=== PATIENT | female | born 1945 | race Caucasian/White ===

== ENCOUNTER 2017-10-27 08:17 | Inpatient (IN) | payer MEDICARE, MEDICAID ==
[~2017-10-27] VITALS: Ht 160 cm; Wt 69.0 kg
[2017-10-27] VITALS (11 sets, daily range): BP systolic 116–148; BP diastolic 45–86
[~2017-10-27 08:17] MED LIST: ARIP20TA4 PO; BISA-155 PO; CALC-1197 PO; CLON-527 PO; DIVA500T2 PO; DOCU-148 PO; DULR RC; FLUV50TA3 PO; LEVO50TA8 PO; LORA-269 PO; LORA2VIA27 IM; METO-384 PO; OLAN5TAB3 PO; OMEP-50 PO; QUET-1 PO
[2017-10-27] MEDS ORDERED: acetaminophen 325mg tablet PO STA (08:30)
[2017-10-27] MEDS ORDERED: normal saline 1000ML IV soln IV ONE (08:30)
[2017-10-27] MEDS ORDERED: levoFLOXACIN-Levaquin 750MG/D5 150 ML IV ONE (08:30)
[2017-10-27 09:40] LABS: BASOPHILS % (AUTO) 0.1 % (0-1); EOSINOPHILS # (AUTO) 0.1 X10'3 (0-0.9); EOSINOPHILS % (AUTO) 1.3 % (0-6); HEMOGLOBIN 7.2 g/dl (12.0-16.0); LYMPHOCYTES # (AUTO) 0.6 X10'3 (1.1-4.8); LYMPHOCYTES % (AUTO) 9.3 % (21-51); MEAN CORPUSCULAR HEMOGLOBIN 30.5 PG (27.0-31.0); MEAN CORPUSCULAR HGB CONC 33.8 % (33.0-36.5); MEAN CORPUSCULAR VOLUME 90.4 FL (78-98); MEAN PLATELET VOLUME 8.9 FL (7.4-10.4); MONOCYTES # (AUTO) 0.6 X10'3 (0-0.9); MONOCYTES % (AUTO) 8.4 % (2-12); NEUTROPHILS # (AUTO) 5.5 X10'3 (1.8-7.7); NEUTROPHILS % (AUTO) 80.9 % (42-75); PLATELET COUNT 171 X10'3 (140-440); RED BLOOD COUNT 2.37 X10'6 (4.20-5.60); RED CELL DISTRIBUTION WIDTH 14.4 % (11.5-14.5); WHITE BLOOD COUNT 6.8 X10'3 (4.5-11.0)
[2017-10-27 09:43] LABS: HEMATOCRIT 21.4 % (35.0-45.0)
[2017-10-27] MEDS ORDERED: PRAZ1CAP5 PO (09:46)
[2017-10-27] MEDS ORDERED: MULT1TAB74 PO (09:46)
[2017-10-27] MEDS ORDERED: PYRI50TA10 PO (09:46)
[2017-10-27 09:51] LABS: PARTIAL THROMBOPLASTIN TIME 24 SECONDS (22-32); PROTHROMBIN TIME 10.6 SECONDS (9.0-12.0)
[2017-10-27 09:56] LABS: ALANINE AMINOTRANSFERASE 12 U/L (12-78); ALBUMIN 2.6 G/DL (3.4-5.0); ALBUMIN/GLOBULIN RATIO 0.7 (1.1-1.5); ALKALINE PHOSPHATASE 60 IU/L (46-116); ANION GAP 5 (8-16); ASPARTATE AMINO TRANSFERASE 13 U/L (10-37); BILIRUBIN,TOTAL 0.1 MG/DL (0.1-1.0); BLOOD UREA NITROGEN 11 MG/DL (7-18); CALCIUM 8.5 MG/DL (8.5-10.1); CHLORIDE 100 MMOL/L (99-107); CREATININE 0.44 MG/DL (0.40-0.90); GLUCOSE 110 MG/DL (70-104); MAGNESIUM 1.4 MG/DL (1.5-2.4); POTASSIUM 4.2 MMOL/L (3.5-5.1); SODIUM 139 MMOL/L (135-145); TOTAL CARBON DIOXIDE 33.7 MMOL/L (24-32); TOTAL PROTEIN 6.4 G/DL (6.4-8.2); eGFR > 90 ML/MIN
[2017-10-27] MEDS ORDERED: acetaminophen 325mg tablet PO PRN (11:25)
[2017-10-27] MEDS ORDERED: morphine 2 MG/ML inj. syringe IV PRN ×2 (11:25)
[2017-10-27] MEDS ORDERED: ondansetron/PF 4mg/2ml inj IV PRN (11:25)
[2017-10-27] MEDS ORDERED: methylPREDNISolone sod succ 125mg/2ml vial IV ONE (11:25)
[2017-10-27] MEDS ORDERED: magnesium hydroxide 30ml (MOM) UD suspension PO PRN (11:25)
[2017-10-27] MEDS ORDERED: mag hydrox/Alum hydrox/simeth 30ml oral suspension PO PRN (11:25)
[2017-10-27] MEDS: ipratropium 0.5 MG/2.5ML nebule IH SCH ×2 (12:26→20:06)
[2017-10-27] MEDS ORDERED: ipratropium 0.5 MG/2.5ML nebule ONE (12:26)
[2017-10-27] MEDS: LORazepam 2 mg/ml vial IM SCH ×3 (15:27→22:15)
[2017-10-27] MEDS ORDERED: FLUVOXAMINE MALEATE 50 MG PO SCH (20:00)
[2017-10-27] MEDS ORDERED: non-formulary drug (Olanzapine (Zyprexa) 1 TAB) PO SCH (21:00)
[2017-10-27] MEDS: clonazePAM 1mg tablet PO SCH (21:40)
[2017-10-27] MEDS: quetiapine 100mg tablet PO SCH (21:40)
[2017-10-27] MEDS: OLANZapine 5mg rapidly disint. tablet PO SCH (21:41)
[2017-10-27] MEDS: fluvoxamine 25 MG tablet PO SCH (21:42)
[2017-10-27] MEDS: divalproex sodium 500mg tablet.DR PO SCH (21:42)
[2017-10-27] MEDS: prazosin 1mg capsule PO SCH (21:42)
[2017-10-27] MEDS: pantoprazole 40 MG vial IV SCH (21:43)
[2017-10-28] VITALS (7 sets, daily range): BP systolic 117–155; BP diastolic 56–72
[2017-10-28] MEDS: methylPREDNISolone sod succ/PF 40mg inj. IV SCH ×4 (01:48→21:05)
[2017-10-28] MEDS: LORazepam 2 mg/ml vial IM SCH (02:00)
[2017-10-28] MEDS: ipratropium 0.5 MG/2.5ML nebule IH SCH ×4 (03:37→20:35)
[2017-10-28 05:08] LABS: BASOPHILS % (AUTO) 0 % (0-1); EOSINOPHILS # (AUTO) 0.1 X10'3 (0-0.9); HEMATOCRIT 31.5 % (35.0-45.0); HEMOGLOBIN 10.6 g/dl (12.0-16.0); LYMPHOCYTES # (AUTO) 0.5 X10'3 (1.1-4.8); MEAN CORPUSCULAR HEMOGLOBIN 30.4 PG (27.0-31.0); MEAN CORPUSCULAR HGB CONC 33.5 % (33.0-36.5); MEAN CORPUSCULAR VOLUME 90.7 FL (78-98); MEAN PLATELET VOLUME 8.8 FL (7.4-10.4); MONOCYTES # (AUTO) 0.1 X10'3 (0-0.9); MONOCYTES % (AUTO) 1.8 % (2-12); NEUTROPHILS # (AUTO) 5.5 X10'3 (1.8-7.7); NEUTROPHILS % (AUTO) 89.2 % (42-75); PLATELET COUNT 166 X10'3 (140-440); RED BLOOD COUNT 3.48 X10'6 (4.20-5.60); RED CELL DISTRIBUTION WIDTH 14.5 % (11.5-14.5); WHITE BLOOD COUNT 6.2 X10'3 (4.5-11.0)
[2017-10-28 05:17] LABS: PROTHROMBIN TIME 10.5 SECONDS (9.0-12.0)
[2017-10-28 05:26] LABS: ALBUMIN 2.5 G/DL (3.4-5.0); ANION GAP 7 (8-16); BLOOD UREA NITROGEN 11 MG/DL (7-18); BUN/CREATININE RATIO 21.6 (6.6-38.0); CALCIUM 7.9 MG/DL (8.5-10.1); CHLORIDE 100 MMOL/L (99-107); CREATININE 0.51 MG/DL (0.40-0.90); GLUCOSE 150 MG/DL (70-104); POTASSIUM 4.1 MMOL/L (3.5-5.1); SODIUM 137 MMOL/L (135-145); TOTAL CARBON DIOXIDE 29.9 MMOL/L (24-32); eGFR > 90 ML/MIN
[2017-10-28] MEDS: pantoprazole 40 MG vial IV SCH (07:47)
[2017-10-28] MEDS: LORazepam 2 mg/ml vial IV SCH ×3 (07:48→21:07)
[2017-10-28] MEDS: pyridoxine 50mg tablet PO SCH (07:48)
[2017-10-28] MEDS: aripiprazole 5mg tablet PO SCH (07:49)
[2017-10-28] MEDS: levoFLOXACIN-Levaquin 750MG/D5 150 ML IV SCH (07:49)
[2017-10-28] MEDS: metoprolol succinate 25mg (24-HOUR) SR. Tablet PO SCH (07:50)
[2017-10-28] MEDS: levoTHYROXINE 25mcg tablet PO SCH (07:50)
[2017-10-28] MEDS: fluvoxamine 25 MG tablet PO SCH ×2 (07:50→21:04)
[2017-10-28] MEDS: multivitamins, therapeutics tablet PO SCH (07:50)
[2017-10-28] MEDS: quetiapine 100mg tablet PO SCH ×2 (07:50→21:05)
[2017-10-28] MEDS: divalproex sodium 500mg tablet.DR PO SCH ×2 (07:50→21:05)
[2017-10-28] MEDS ORDERED: non-formulary drug (Metoprolol Succinate 1 TAB) PO SCH (08:00)
[2017-10-28] MEDS ORDERED: non-formulary drug (Aripiprazole (Abilify) 1 TAB) PO SCH (08:00)
[2017-10-28] MEDS ORDERED: non-formulary drug (Levothyroxine Sodium 1 TAB) PO SCH (08:00)
[2017-10-28] MEDS ORDERED: non-formulary drug (Multivitamins 1 TAB) PO SCH (08:00)
[2017-10-28] MEDS: clonazePAM 1mg tablet PO SCH ×2 (08:57→21:05)
[2017-10-28] MEDS: prazosin 1mg capsule PO SCH (21:04)
[2017-10-28] MEDS: OLANZapine 5mg rapidly disint. tablet PO SCH (21:05)
[2017-10-28] MEDS: pantoprazole 40mg Tablet.DR PO SCH (21:05)
[2017-10-29] MEDS: LORazepam 2 mg/ml vial IV SCH ×4 (02:00→20:21)
[2017-10-29] MEDS: ipratropium 0.5 MG/2.5ML nebule IH SCH ×4 (02:45→20:28)
[2017-10-29 03:00] VITALS: BP 157/69
[2017-10-29] MEDS: methylPREDNISolone sod succ/PF 40mg inj. IV SCH ×4 (03:17→20:22)
[2017-10-29 05:22] LABS: BASOPHILS % (AUTO) 0.1 % (0-1); EOSINOPHILS % (AUTO) 0 % (0-6); HEMATOCRIT 30.6 % (35.0-45.0); HEMOGLOBIN 10.4 g/dl (12.0-16.0); LYMPHOCYTES # (AUTO) 0.7 X10'3 (1.1-4.8); LYMPHOCYTES % (AUTO) 12.7 % (21-51); MEAN CORPUSCULAR HEMOGLOBIN 30.6 PG (27.0-31.0); MEAN CORPUSCULAR HGB CONC 33.9 % (33.0-36.5); MEAN CORPUSCULAR VOLUME 90.2 FL (78-98); MEAN PLATELET VOLUME 9.1 FL (7.4-10.4); MONOCYTES # (AUTO) 0.4 X10'3 (0-0.9); MONOCYTES % (AUTO) 6.7 % (2-12); NEUTROPHILS # (AUTO) 4.4 X10'3 (1.8-7.7); NEUTROPHILS % (AUTO) 80.5 % (42-75); PLATELET COUNT 145 X10'3 (140-440); RED CELL DISTRIBUTION WIDTH 15.2 % (11.5-14.5); WHITE BLOOD COUNT 5.5 X10'3 (4.5-11.0)
[2017-10-29 05:34] LABS: ALBUMIN 2.5 G/DL (3.4-5.0); ANION GAP 3 (8-16); BLOOD UREA NITROGEN 12 MG/DL (7-18); BUN/CREATININE RATIO 21.1 (6.6-38.0); CALCIUM 8.6 MG/DL (8.5-10.1); CHLORIDE 104 MMOL/L (99-107); CREATININE 0.57 MG/DL (0.40-0.90); GLUCOSE 143 MG/DL (70-104); POTASSIUM 4.4 MMOL/L (3.5-5.1); SODIUM 143 MMOL/L (135-145); TOTAL CARBON DIOXIDE 36.3 MMOL/L (24-32); eGFR > 90 ML/MIN
[2017-10-29 06:00] VITALS: BP 154/75
[2017-10-29] MEDS: levoFLOXACIN-Levaquin 750MG/D5 150 ML IV SCH (08:00)
[2017-10-29] MEDS ORDERED: iohexol 350MG/ML 100ml bottle IV ONE ×2 (09:23→09:52)
[2017-10-29] MEDS: fluvoxamine 25 MG tablet PO SCH ×2 (10:38→20:20)
[2017-10-29] MEDS: levoTHYROXINE 25mcg tablet PO SCH (10:38)
[2017-10-29] MEDS: lactobacillus rhamnosus 10,000 MMU CELLS/CAPSULE PO SCH ×3 (10:38→17:51)
[2017-10-29] MEDS: multivitamins, therapeutics tablet PO SCH (10:39)
[2017-10-29] MEDS: aripiprazole 5mg tablet PO SCH (10:39)
[2017-10-29] MEDS: divalproex sodium 500mg tablet.DR PO SCH ×2 (10:39→20:22)
[2017-10-29] MEDS: pantoprazole 40mg Tablet.DR PO SCH ×2 (10:39→20:21)
[2017-10-29] MEDS: metoprolol succinate 25mg (24-HOUR) SR. Tablet PO SCH (10:39)
[2017-10-29] MEDS: quetiapine 100mg tablet PO SCH ×2 (10:39→20:21)
[2017-10-29] MEDS: pyridoxine 50mg tablet PO SCH (10:39)
[2017-10-29] MEDS: clonazePAM 1mg tablet PO SCH ×2 (10:40→20:21)
[2017-10-29 11:00] VITALS: BP 164/79
[2017-10-29 15:00] VITALS: BP 105/64
[2017-10-29 19:00] VITALS: BP 127/65
[2017-10-29] MEDS: OLANZapine 5mg rapidly disint. tablet PO SCH (20:21)
[2017-10-29] MEDS: prazosin 1mg capsule PO SCH (20:22)
[2017-10-29 21:27] LABS: CLARITY,URINE SLIGHTLY CLOUDY (Clear); COLOR,URINE YELLOW (Yellow); GLUCOSE, URINE NEGATIVE (Neg); KETONES,URINE NEGATIVE (Neg); LEUKOCYTE ESTERASE ,URINE NEGATIVE (Neg); NITRITES, URINE NEGATIVE (Neg); OCCULT BLOOD,URINE LARGE (Neg); PH,URINE 6.5 (4.8-8.0); PROTEIN,URINE 100 mg/dl (Neg)
[2017-10-29 21:29] LABS: UA COLLECTION TYPE FOLEY CATH
[2017-10-29 21:34] LABS: BACTERIA,URINE NONE SEEN /HPF (Neg); RBC,URINE 50-100 /HPF (0-2); SQUAMOUS EPITHELIAL CELL,UR FEW /LPF (FEW); WBC,URINE NONE SEEN /HPF (0-4)
[2017-10-29 23:00] VITALS: BP 133/68
[2017-10-30] VITALS (7 sets, daily range): BP systolic 110–135; BP diastolic 59–78
[2017-10-30] MEDS: LORazepam 2 mg/ml vial IV SCH ×4 (01:39→21:30)
[2017-10-30] MEDS: methylPREDNISolone sod succ/PF 40mg inj. IV SCH ×4 (01:39→20:06)
[2017-10-30] MEDS: ipratropium 0.5 MG/2.5ML nebule IH SCH ×4 (02:49→20:41)
[2017-10-30 05:24] LABS: BASOPHILS % (AUTO) 0 % (0-1); EOSINOPHILS # (AUTO) 0.1 X10'3 (0-0.9); EOSINOPHILS % (AUTO) 1.2 % (0-6); HEMATOCRIT 33.9 % (35.0-45.0); HEMOGLOBIN 11.4 g/dl (12.0-16.0); LYMPHOCYTES # (AUTO) 0.7 X10'3 (1.1-4.8); MEAN CORPUSCULAR HEMOGLOBIN 30.6 PG (27.0-31.0); MEAN CORPUSCULAR HGB CONC 33.5 % (33.0-36.5); MEAN CORPUSCULAR VOLUME 91.3 FL (78-98); MEAN PLATELET VOLUME 9.2 FL (7.4-10.4); MONOCYTES # (AUTO) 0.3 X10'3 (0-0.9); MONOCYTES % (AUTO) 3.7 % (2-12); NEUTROPHILS # (AUTO) 6.4 X10'3 (1.8-7.7); NEUTROPHILS % (AUTO) 86.1 % (42-75); PLATELET COUNT 184 X10'3 (140-440); RED BLOOD COUNT 3.71 X10'6 (4.20-5.60); RED CELL DISTRIBUTION WIDTH 15.3 % (11.5-14.5); WHITE BLOOD COUNT 7.5 X10'3 (4.5-11.0)
[2017-10-30 05:56] LABS: ALBUMIN 2.3 G/DL (3.4-5.0); ANION GAP 1 (8-16); BLOOD UREA NITROGEN 20 MG/DL (7-18); BUN/CREATININE RATIO 37.7 (6.6-38.0); CALCIUM 8.4 MG/DL (8.5-10.1); CHLORIDE 102 MMOL/L (99-107); CREATININE 0.53 MG/DL (0.40-0.90); GLUCOSE 142 MG/DL (70-104); SODIUM 138 MMOL/L (135-145); eGFR > 90 ML/MIN
[2017-10-30] MEDS: lactobacillus rhamnosus 10,000 MMU CELLS/CAPSULE PO SCH ×2 (07:22→17:05)
[2017-10-30] MEDS: levoTHYROXINE 25mcg tablet PO SCH (07:22)
[2017-10-30] MEDS: pyridoxine 50mg tablet PO SCH (07:24)
[2017-10-30] MEDS: clonazePAM 1mg tablet PO SCH ×2 (07:24→20:07)
[2017-10-30] MEDS: multivitamins, therapeutics tablet PO SCH (07:25)
[2017-10-30] MEDS: fluvoxamine 25 MG tablet PO SCH ×2 (07:26→20:07)
[2017-10-30] MEDS: aripiprazole 5mg tablet PO SCH (07:29)
[2017-10-30] MEDS: quetiapine 100mg tablet PO SCH ×2 (07:33→20:08)
[2017-10-30] MEDS: pantoprazole 40mg Tablet.DR PO SCH ×2 (07:33→20:07)
[2017-10-30] MEDS: metoprolol succinate 25mg (24-HOUR) SR. Tablet PO SCH (07:33)
[2017-10-30] MEDS: divalproex sodium 500mg tablet.DR PO SCH ×2 (07:44→20:06)
[2017-10-30] MEDS ORDERED: pneumococcal 23-VAL P-sac vacc 25 mcg/0.5ml vial IMVAC ONE (10:00)
[2017-10-30] MEDS ORDERED: FLU VACC QS2017-18 36MOS UP/PF 60 MCG/0.5 ML SYRINGE IMVAC ONE (10:00)
[2017-10-30] MEDS: levoFLOXACIN 750MG TABLET PO SCH (10:47)
[2017-10-30] MEDS: prazosin 1mg capsule PO SCH (21:30)
[2017-10-30] MEDS: OLANZapine 5mg rapidly disint. tablet PO SCH (21:30)
[2017-10-30 22:23] LABS: BASOPHILS # (AUTO) 0.1 X10'3 (0-0.2); BASOPHILS % (AUTO) 0.9 % (0-1); EOSINOPHILS # (AUTO) 0.1 X10'3 (0-0.9); EOSINOPHILS % (AUTO) 1.3 % (0-6); HEMATOCRIT 33.6 % (35.0-45.0); HEMOGLOBIN 11.2 g/dl (12.0-16.0); LYMPHOCYTES # (AUTO) 0.7 X10'3 (1.1-4.8); MEAN CORPUSCULAR HEMOGLOBIN 30.4 PG (27.0-31.0); MEAN CORPUSCULAR HGB CONC 33.2 % (33.0-36.5); MEAN CORPUSCULAR VOLUME 91.6 FL (78-98); MEAN PLATELET VOLUME 9.4 FL (7.4-10.4); MONOCYTES # (AUTO) 1.4 X10'3 (0-0.9); MONOCYTES % (AUTO) 19.1 % (2-12); NEUTROPHILS # (AUTO) 5.2 X10'3 (1.8-7.7); NEUTROPHILS % (AUTO) 69.7 % (42-75); PLATELET COUNT 192 X10'3 (140-440); RED BLOOD COUNT 3.67 X10'6 (4.20-5.60); RED CELL DISTRIBUTION WIDTH 15.1 % (11.5-14.5); WHITE BLOOD COUNT 7.5 X10'3 (4.5-11.0)
[2017-10-30 22:34] LABS: ALBUMIN 2.2 G/DL (3.4-5.0); ANION GAP 3 (8-16); BLOOD UREA NITROGEN 20 MG/DL (7-18); BUN/CREATININE RATIO 33.9 (6.6-38.0); C-REACTIVE PROTEIN 1.07 MG/DL (0.0-0.5); CALCIUM 8.3 MG/DL (8.5-10.1); CHLORIDE 102 MMOL/L (99-107); CREATININE 0.59 MG/DL (0.40-0.90); GLUCOSE 138 MG/DL (70-104); POTASSIUM 4.2 MMOL/L (3.5-5.1); SODIUM 139 MMOL/L (135-145); TOTAL CARBON DIOXIDE 34.3 MMOL/L (24-32); eGFR > 90 ML/MIN
[2017-10-31 02:00] VITALS: BP 131/62
[2017-10-31] MEDS: LORazepam 2 mg/ml vial IV SCH ×2 (02:00→08:00)
[2017-10-31] MEDS: methylPREDNISolone sod succ/PF 40mg inj. IV SCH ×2 (02:19→08:32)
[2017-10-31] MEDS: ipratropium 0.5 MG/2.5ML nebule IH SCH ×4 (03:06→19:21)
[2017-10-31 06:00] VITALS: BP 113/58
[2017-10-31] MEDS: levoTHYROXINE 25mcg tablet PO SCH (07:01)
[2017-10-31] MEDS: lactobacillus rhamnosus 10,000 MMU CELLS/CAPSULE PO SCH ×2 (07:02→16:56)
[2017-10-31] MEDS: fluvoxamine 25 MG tablet PO SCH ×2 (08:32→19:39)
[2017-10-31] MEDS: aripiprazole 5mg tablet PO SCH (08:34)
[2017-10-31] MEDS: divalproex sodium 500mg tablet.DR PO SCH ×2 (08:34→19:39)
[2017-10-31] MEDS: pantoprazole 40mg Tablet.DR PO SCH ×2 (08:35→19:39)
[2017-10-31] MEDS: multivitamins, therapeutics tablet PO SCH (08:35)
[2017-10-31] MEDS: quetiapine 100mg tablet PO SCH ×2 (08:36→19:40)
[2017-10-31] MEDS: pyridoxine 50mg tablet PO SCH (08:38)
[2017-10-31] MEDS: clonazePAM 1mg tablet PO SCH ×2 (08:52→19:39)
[2017-10-31] MEDS: metoprolol succinate 25mg (24-HOUR) SR. Tablet PO SCH (08:53)
[2017-10-31] MEDS: levoFLOXACIN 750MG TABLET PO SCH (10:34)
[2017-10-31 11:00] VITALS: BP 112/55
[2017-10-31 15:00] VITALS: BP 117/59
[2017-10-31 19:00] VITALS: BP 127/58
[2017-10-31] MEDS: OLANZapine 5mg rapidly disint. tablet PO SCH (21:04)
[2017-10-31] MEDS: prazosin 1mg capsule PO SCH (21:04)
[2017-10-31 23:00] VITALS: BP 103/46
[2017-11-01 03:00] VITALS: BP 92/50
[2017-11-01] MEDS: ipratropium 0.5 MG/2.5ML nebule IH SCH ×4 (03:23→21:27)
[2017-11-01 06:00] VITALS: BP 89/47
[2017-11-01] MEDS: metoprolol succinate 25mg (24-HOUR) SR. Tablet PO SCH (08:00)
[2017-11-01] MEDS: clonazePAM 1mg tablet PO SCH ×2 (08:54→20:00)
[2017-11-01] MEDS: aripiprazole 5mg tablet PO SCH (08:54)
[2017-11-01] MEDS: quetiapine 100mg tablet PO SCH ×2 (08:55→20:00)
[2017-11-01] MEDS: pyridoxine 50mg tablet PO SCH (08:56)
[2017-11-01] MEDS: predniSONE 20 mg tablet PO SCH (08:56)
[2017-11-01] MEDS: multivitamins, therapeutics tablet PO SCH (08:56)
[2017-11-01] MEDS: pantoprazole 40mg Tablet.DR PO SCH ×2 (08:57→20:00)
[2017-11-01] MEDS: fluvoxamine 25 MG tablet PO SCH ×2 (08:58→20:00)
[2017-11-01] MEDS: divalproex sodium 500mg tablet.DR PO SCH ×2 (09:03→20:00)
[2017-11-01] MEDS: lactobacillus rhamnosus 10,000 MMU CELLS/CAPSULE PO SCH ×2 (09:03→16:53)
[2017-11-01] MEDS: levoTHYROXINE 25mcg tablet PO SCH (09:03)
[2017-11-01] MEDS ORDERED: BARIUM SULFATE 340 ML SUSP.RECON***PROCEDURE AREA ONLY**DONT ENTER PO ONE (09:32)
[2017-11-01] MEDS: piperacillin/tazo 3.375gm/50ml 50 ML IV SCH ×2 (10:50→16:11)
[2017-11-01] MEDS ORDERED: normal saline 1000ml 1,000 ML IV ONE ×2 (10:50→14:30)
[2017-11-01] MEDS: levoFLOXACIN 750MG TABLET PO SCH (11:00)
[2017-11-01 12:09] LABS: BASOPHILS % (AUTO) 0.3 % (0-1); EOSINOPHILS # (AUTO) 0.2 X10'3 (0-0.9); EOSINOPHILS % (AUTO) 1.2 % (0-6); HEMATOCRIT 36.4 % (35.0-45.0); HEMOGLOBIN 12.1 g/dl (12.0-16.0); LYMPHOCYTES # (AUTO) 1.8 X10'3 (1.1-4.8); LYMPHOCYTES % (AUTO) 13.6 % (21-51); MEAN CORPUSCULAR HEMOGLOBIN 30.5 PG (27.0-31.0); MEAN CORPUSCULAR HGB CONC 33.4 % (33.0-36.5); MEAN CORPUSCULAR VOLUME 91.4 FL (78-98); MEAN PLATELET VOLUME 9.2 FL (7.4-10.4); MONOCYTES # (AUTO) 1.1 X10'3 (0-0.9); MONOCYTES % (AUTO) 8.1 % (2-12); NEUTROPHILS # (AUTO) 10.4 X10'3 (1.8-7.7); NEUTROPHILS % (AUTO) 76.8 % (42-75); PLATELET COUNT 209 X10'3 (140-440); RED BLOOD COUNT 3.98 X10'6 (4.20-5.60); RED CELL DISTRIBUTION WIDTH 15.3 % (11.5-14.5); WHITE BLOOD COUNT 13.5 X10'3 (4.5-11.0)
[2017-11-01 12:21] LABS: ALBUMIN 2.3 G/DL (3.4-5.0); ANION GAP 0 (8-16); BLOOD UREA NITROGEN 24 MG/DL (7-18); BUN/CREATININE RATIO 39.3 (6.6-38.0); CHLORIDE 96 MMOL/L (99-107); CREATININE 0.61 MG/DL (0.40-0.90); GLUCOSE 86 MG/DL (70-104); POTASSIUM 4.5 MMOL/L (3.5-5.1); SODIUM 135 MMOL/L (135-145); TOTAL CARBON DIOXIDE 38.9 MMOL/L (24-32); eGFR > 90 ML/MIN
[2017-11-01 14:25] VITALS: BP 104/50
[2017-11-01 19:00] VITALS: BP 114/63
[2017-11-01] MEDS: prazosin 1mg capsule PO SCH (21:00)
[2017-11-01] MEDS: OLANZapine 5mg rapidly disint. tablet PO SCH (21:00)
[2017-11-01 23:00] VITALS: BP 111/71
[2017-11-02 03:00] VITALS: BP 143/61
[2017-11-02] MEDS: ipratropium 0.5 MG/2.5ML nebule IH SCH ×4 (04:06→19:45)
[2017-11-02 05:47] LABS: BASOPHILS % (AUTO) 0.3 % (0-1); EOSINOPHILS # (AUTO) 0.1 X10'3 (0-0.9); EOSINOPHILS % (AUTO) 1.4 % (0-6); HEMATOCRIT 36.7 % (35.0-45.0); HEMOGLOBIN 12.3 g/dl (12.0-16.0); LYMPHOCYTES # (AUTO) 1.6 X10'3 (1.1-4.8); LYMPHOCYTES % (AUTO) 22.6 % (21-51); MEAN CORPUSCULAR HEMOGLOBIN 30.9 PG (27.0-31.0); MEAN CORPUSCULAR HGB CONC 33.6 % (33.0-36.5); MEAN CORPUSCULAR VOLUME 91.9 FL (78-98); MEAN PLATELET VOLUME 8.6 FL (7.4-10.4); MONOCYTES % (AUTO) 13.5 % (2-12); NEUTROPHILS # (AUTO) 4.4 X10'3 (1.8-7.7); NEUTROPHILS % (AUTO) 62.2 % (42-75); PLATELET COUNT 233 X10'3 (140-440); RED BLOOD COUNT 3.99 X10'6 (4.20-5.60); RED CELL DISTRIBUTION WIDTH 15.3 % (11.5-14.5); WHITE BLOOD COUNT 7.1 X10'3 (4.5-11.0)
[2017-11-02 06:21] LABS: ALBUMIN 2.4 G/DL (3.4-5.0); ANION GAP 0 (8-16); BLOOD UREA NITROGEN 16 MG/DL (7-18); BUN/CREATININE RATIO 24.2 (6.6-38.0); CALCIUM 8.4 MG/DL (8.5-10.1); CHLORIDE 101 MMOL/L (99-107); CREATININE 0.66 MG/DL (0.40-0.90); GLUCOSE 83 MG/DL (70-104); POTASSIUM 3.8 MMOL/L (3.5-5.1); SODIUM 141 MMOL/L (135-145); TOTAL CARBON DIOXIDE 39.7 MMOL/L (24-32); eGFR 89 ML/MIN
[2017-11-02 07:00] VITALS: BP 140/68
[2017-11-02] MEDS: piperacillin/tazo 3.375gm/50ml 50 ML IV SCH ×4 (08:28→23:47)
[2017-11-02 11:00] VITALS: BP 131/47
[2017-11-02] MEDS: clonazePAM 1mg tablet PO SCH ×2 (12:36→20:21)
[2017-11-02] MEDS: quetiapine 100mg tablet PO SCH ×2 (12:37→20:21)
[2017-11-02] MEDS: aripiprazole 5mg tablet PO SCH (12:37)
[2017-11-02] MEDS: multivitamins, therapeutics tablet PO SCH (12:37)
[2017-11-02] MEDS: lactobacillus rhamnosus 10,000 MMU CELLS/CAPSULE PO SCH ×2 (12:37→17:30)
[2017-11-02] MEDS: levoTHYROXINE 25mcg tablet PO SCH (12:38)
[2017-11-02] MEDS: pyridoxine 50mg tablet PO SCH (12:38)
[2017-11-02] MEDS: predniSONE 20 mg tablet PO SCH (12:38)
[2017-11-02] MEDS: pantoprazole 40mg Tablet.DR PO SCH ×2 (12:38→20:20)
[2017-11-02] MEDS: metoprolol succinate 25mg (24-HOUR) SR. Tablet PO SCH (12:38)
[2017-11-02] MEDS: fluvoxamine 25 MG tablet PO SCH ×2 (12:39→20:20)
[2017-11-02] MEDS: divalproex sodium 500mg tablet.DR PO SCH ×2 (12:39→20:21)
[2017-11-02] MEDS: levoFLOXACIN 750MG TABLET PO SCH (12:42)
[2017-11-02 15:00] VITALS: BP 127/62
[2017-11-02 19:00] VITALS: BP 142/80
[2017-11-02] MEDS: OLANZapine 5mg rapidly disint. tablet PO SCH (20:21)
[2017-11-02] MEDS: prazosin 1mg capsule PO SCH (20:21)
[2017-11-02 23:00] VITALS: BP 121/65
[2017-11-03 03:00] VITALS: BP 120/57
[2017-11-03] MEDS: ipratropium 0.5 MG/2.5ML nebule IH SCH ×4 (03:21→20:11)
[2017-11-03 06:00] VITALS: BP 131/68
[2017-11-03 06:30] LABS: BASOPHILS % (AUTO) 0.2 % (0-1); EOSINOPHILS # (AUTO) 0.1 X10'3 (0-0.9); EOSINOPHILS % (AUTO) 0.6 % (0-6); HEMOGLOBIN 12.1 g/dl (12.0-16.0); LYMPHOCYTES # (AUTO) 1.3 X10'3 (1.1-4.8); LYMPHOCYTES % (AUTO) 15.3 % (21-51); MEAN CORPUSCULAR HEMOGLOBIN 30.7 PG (27.0-31.0); MEAN CORPUSCULAR HGB CONC 33.7 % (33.0-36.5); MEAN CORPUSCULAR VOLUME 91.1 FL (78-98); MONOCYTES # (AUTO) 0.8 X10'3 (0-0.9); NEUTROPHILS # (AUTO) 6.6 X10'3 (1.8-7.7); NEUTROPHILS % (AUTO) 74.9 % (42-75); PLATELET COUNT 203 X10'3 (140-440); RED BLOOD COUNT 3.95 X10'6 (4.20-5.60); RED CELL DISTRIBUTION WIDTH 15.4 % (11.5-14.5); WHITE BLOOD COUNT 8.8 X10'3 (4.5-11.0)
[2017-11-03 06:56] LABS: ALBUMIN 2.6 G/DL (3.4-5.0); ANION GAP 4 (8-16); BLOOD UREA NITROGEN 13 MG/DL (7-18); CALCIUM 8.6 MG/DL (8.5-10.1); CHLORIDE 101 MMOL/L (99-107); CREATININE 0.62 MG/DL (0.40-0.90); GLUCOSE 85 MG/DL (70-104); POTASSIUM 4.1 MMOL/L (3.5-5.1); SODIUM 140 MMOL/L (135-145); TOTAL CARBON DIOXIDE 35.1 MMOL/L (24-32); eGFR > 90 ML/MIN
[2017-11-03] MEDS: predniSONE 20 mg tablet PO SCH (07:28)
[2017-11-03] MEDS: pantoprazole 40mg Tablet.DR PO SCH ×2 (07:28→20:05)
[2017-11-03] MEDS: metoprolol succinate 25mg (24-HOUR) SR. Tablet PO SCH (07:28)
[2017-11-03] MEDS: levoTHYROXINE 25mcg tablet PO SCH (07:28)
[2017-11-03] MEDS: lactobacillus rhamnosus 10,000 MMU CELLS/CAPSULE PO SCH ×2 (07:28→17:27)
[2017-11-03] MEDS: clonazePAM 1mg tablet PO SCH ×2 (07:28→20:05)
[2017-11-03] MEDS: pyridoxine 50mg tablet PO SCH (07:28)
[2017-11-03] MEDS: multivitamins, therapeutics tablet PO SCH (07:28)
[2017-11-03] MEDS: fluvoxamine 25 MG tablet PO SCH ×2 (07:29→20:06)
[2017-11-03] MEDS: piperacillin/tazo 3.375gm/50ml 50 ML IV SCH ×2 (07:29→15:50)
[2017-11-03] MEDS: aripiprazole 5mg tablet PO SCH (07:29)
[2017-11-03] MEDS: divalproex sodium 500mg tablet.DR PO SCH ×2 (07:29→20:27)
[2017-11-03] MEDS: quetiapine 100mg tablet PO SCH ×2 (07:29→20:07)
[2017-11-03] MEDS: levoFLOXACIN 750MG TABLET PO SCH (10:59)
[2017-11-03 11:00] VITALS: BP 115/56
[2017-11-03 15:00] VITALS: BP 128/60
[2017-11-03 19:00] VITALS: BP 114/50
[2017-11-03] MEDS: OLANZapine 5mg rapidly disint. tablet PO SCH (20:27)
[2017-11-03] MEDS: prazosin 1mg capsule PO SCH (20:27)
[2017-11-03 23:00] VITALS: BP 116/51
[2017-11-04] MEDS: piperacillin/tazo 3.375gm/50ml 50 ML IV SCH ×3 (00:45→15:49)
[2017-11-04 03:00] VITALS: BP 97/48
[2017-11-04] MEDS: ipratropium 0.5 MG/2.5ML nebule IH SCH ×4 (03:47→22:00)
[2017-11-04 05:55] LABS: BASOPHILS % (AUTO) 0.1 % (0-1); EOSINOPHILS # (AUTO) 0.2 X10'3 (0-0.9); EOSINOPHILS % (AUTO) 2.8 % (0-6); HEMATOCRIT 30.3 % (35.0-45.0); HEMOGLOBIN 10.3 g/dl (12.0-16.0); LYMPHOCYTES # (AUTO) 1.8 X10'3 (1.1-4.8); LYMPHOCYTES % (AUTO) 24.8 % (21-51); MEAN CORPUSCULAR HEMOGLOBIN 30.7 PG (27.0-31.0); MEAN CORPUSCULAR HGB CONC 34.1 % (33.0-36.5); MEAN CORPUSCULAR VOLUME 90.1 FL (78-98); MEAN PLATELET VOLUME 8.8 FL (7.4-10.4); MONOCYTES # (AUTO) 0.6 X10'3 (0-0.9); MONOCYTES % (AUTO) 9.1 % (2-12); NEUTROPHILS # (AUTO) 4.5 X10'3 (1.8-7.7); NEUTROPHILS % (AUTO) 63.2 % (42-75); PLATELET COUNT 198 X10'3 (140-440); RED BLOOD COUNT 3.36 X10'6 (4.20-5.60); RED CELL DISTRIBUTION WIDTH 15.6 % (11.5-14.5); WHITE BLOOD COUNT 7.1 X10'3 (4.5-11.0)
[2017-11-04 06:00] VITALS: BP 103/44
[2017-11-04 06:16] LABS: ALBUMIN 2.2 G/DL (3.4-5.0); ANION GAP 5 (8-16); BLOOD UREA NITROGEN 14 MG/DL (7-18); BUN/CREATININE RATIO 22.6 (6.6-38.0); CHLORIDE 100 MMOL/L (99-107); CREATININE 0.62 MG/DL (0.40-0.90); GLUCOSE 74 MG/DL (70-104); MAGNESIUM 1.9 MG/DL (1.5-2.4); POTASSIUM 3.7 MMOL/L (3.5-5.1); SODIUM 140 MMOL/L (135-145); TOTAL CARBON DIOXIDE 34.7 MMOL/L (24-32); eGFR > 90 ML/MIN
[2017-11-04] MEDS: metoprolol succinate 25mg (24-HOUR) SR. Tablet PO SCH (07:17)
[2017-11-04] MEDS: aripiprazole 5mg tablet PO SCH (07:19)
[2017-11-04] MEDS: pyridoxine 50mg tablet PO SCH (07:19)
[2017-11-04] MEDS: quetiapine 100mg tablet PO SCH ×2 (07:19→20:54)
[2017-11-04] MEDS: lactobacillus rhamnosus 10,000 MMU CELLS/CAPSULE PO SCH ×2 (07:19→17:09)
[2017-11-04] MEDS: predniSONE 20 mg tablet PO SCH (07:19)
[2017-11-04] MEDS: clonazePAM 1mg tablet PO SCH ×2 (07:19→20:52)
[2017-11-04] MEDS: levoTHYROXINE 25mcg tablet PO SCH (07:19)
[2017-11-04] MEDS: pantoprazole 40mg Tablet.DR PO SCH ×2 (07:20→20:53)
[2017-11-04] MEDS: divalproex sodium 500mg tablet.DR PO SCH ×2 (07:20→20:54)
[2017-11-04] MEDS: fluvoxamine 25 MG tablet PO SCH ×2 (07:20→20:53)
[2017-11-04] MEDS: multivitamins, therapeutics tablet PO SCH (07:20)
[2017-11-04 11:00] VITALS: BP 117/58
[2017-11-04] MEDS: levoFLOXACIN 750MG TABLET PO SCH (11:02)
[2017-11-04 15:00] VITALS: BP 133/62
[2017-11-04 19:00] VITALS: BP 117/50
[2017-11-04] MEDS: OLANZapine 5mg rapidly disint. tablet PO SCH (20:53)
[2017-11-04] MEDS: prazosin 1mg capsule PO SCH (20:54)
[2017-11-04 23:00] VITALS: BP 95/41
[2017-11-05] MEDS: piperacillin/tazo 3.375gm/50ml 50 ML IV SCH ×3 (00:28→16:29)
[2017-11-05 03:00] VITALS: BP 101/45
[2017-11-05] MEDS: ipratropium 0.5 MG/2.5ML nebule IH SCH ×4 (03:45→20:24)
[2017-11-05] MEDS: Dextrose 10%-water IV solution 1,000 ML IV SCH ×2 (05:15→14:50)
[2017-11-05 05:30] LABS: BASOPHILS % (AUTO) 0.3 % (0-1); EOSINOPHILS # (AUTO) 0.1 X10'3 (0-0.9); HEMATOCRIT 30.4 % (35.0-45.0); HEMOGLOBIN 10.4 g/dl (12.0-16.0); LYMPHOCYTES # (AUTO) 1.5 X10'3 (1.1-4.8); LYMPHOCYTES % (AUTO) 24.8 % (21-51); MEAN CORPUSCULAR HEMOGLOBIN 30.7 PG (27.0-31.0); MEAN CORPUSCULAR HGB CONC 34.2 % (33.0-36.5); MEAN CORPUSCULAR VOLUME 89.6 FL (78-98); MEAN PLATELET VOLUME 8.8 FL (7.4-10.4); MONOCYTES # (AUTO) 0.5 X10'3 (0-0.9); MONOCYTES % (AUTO) 7.9 % (2-12); PLATELET COUNT 181 X10'3 (140-440); RED CELL DISTRIBUTION WIDTH 15.4 % (11.5-14.5); WHITE BLOOD COUNT 6.2 X10'3 (4.5-11.0)
[2017-11-05 06:00] VITALS: BP 119/70
[2017-11-05 06:00] LABS: ALBUMIN 2.2 G/DL (3.4-5.0); ANION GAP 6 (8-16); BLOOD UREA NITROGEN 15 MG/DL (7-18); BUN/CREATININE RATIO 22.4 (6.6-38.0); CALCIUM 8.1 MG/DL (8.5-10.1); CHLORIDE 100 MMOL/L (99-107); CREATININE 0.67 MG/DL (0.40-0.90); GLUCOSE 71 MG/DL (70-104); MAGNESIUM 1.8 MG/DL (1.5-2.4); POTASSIUM 3.6 MMOL/L (3.5-5.1); SODIUM 139 MMOL/L (135-145); eGFR 87 ML/MIN
[2017-11-05] MEDS: multivitamins, therapeutics tablet PO SCH (07:38)
[2017-11-05] MEDS: clonazePAM 1mg tablet PO SCH ×2 (07:38→20:52)
[2017-11-05] MEDS: lactobacillus rhamnosus 10,000 MMU CELLS/CAPSULE PO SCH ×2 (07:38→17:30)
[2017-11-05] MEDS: levoTHYROXINE 25mcg tablet PO SCH (07:38)
[2017-11-05] MEDS: aripiprazole 5mg tablet PO SCH (07:39)
[2017-11-05] MEDS: fluvoxamine 25 MG tablet PO SCH ×2 (07:39→20:52)
[2017-11-05] MEDS: pyridoxine 50mg tablet PO SCH (07:39)
[2017-11-05] MEDS: pantoprazole 40mg Tablet.DR PO SCH ×2 (07:39→20:52)
[2017-11-05] MEDS: quetiapine 100mg tablet PO SCH ×2 (07:39→20:52)
[2017-11-05] MEDS: predniSONE 20 mg tablet PO SCH (07:39)
[2017-11-05] MEDS: metoprolol succinate 25mg (24-HOUR) SR. Tablet PO SCH (07:39)
[2017-11-05] MEDS: divalproex sodium 500mg tablet.DR PO SCH ×2 (07:41→20:55)
[2017-11-05 11:00] VITALS: BP 131/63
[2017-11-05] MEDS: levoFLOXACIN 750MG TABLET PO SCH (12:19)
[2017-11-05] MEDS ORDERED: MESSAGE TO PHARMACY PO ONE (14:30)
[2017-11-05] MEDS ORDERED: dextrose 50%-water 50ml dispensing syringe IV PRN ×2 (14:30)
[2017-11-05] MEDS ORDERED: insulin Lispro (HumaLOG) vial - multi-dose SQ SCH (14:30)
[2017-11-05] MEDS ORDERED: dextrose ORAL solution 15 GM/59 ML bottle PO PRN ×2 (14:30)
[2017-11-05] MEDS ORDERED: glucagon, human recombinant 1mg kit SUBCUT PRN (14:30)
[2017-11-05 15:00] VITALS: BP 144/61
[2017-11-05 19:00] VITALS: BP 157/72
[2017-11-05] MEDS: OLANZapine 5mg rapidly disint. tablet PO SCH (20:52)
[2017-11-05] MEDS: prazosin 1mg capsule PO SCH (20:52)
[2017-11-05] MEDS: insulin glargine (Lantus) pen - multi-dose SQ SCH (21:00)
[2017-11-05 23:00] VITALS: BP 128/59
[2017-11-06] MEDS: Dextrose 10%-water IV solution 1,000 ML IV SCH ×2 (00:50→10:50)
[2017-11-06] MEDS: ipratropium 0.5 MG/2.5ML nebule IH SCH ×4 (02:31→20:05)
[2017-11-06 03:00] VITALS: BP 145/76
[2017-11-06 06:44] LABS: BASOPHILS % (AUTO) 0.1 % (0-1); EOSINOPHILS # (AUTO) 0.2 X10'3 (0-0.9); EOSINOPHILS % (AUTO) 1.6 % (0-6); HEMOGLOBIN 10.9 g/dl (12.0-16.0); LYMPHOCYTES # (AUTO) 1.4 X10'3 (1.1-4.8); LYMPHOCYTES % (AUTO) 14.2 % (21-51); MEAN CORPUSCULAR HEMOGLOBIN 30.6 PG (27.0-31.0); MEAN CORPUSCULAR VOLUME 89.9 FL (78-98); MONOCYTES # (AUTO) 0.6 X10'3 (0-0.9); MONOCYTES % (AUTO) 6.6 % (2-12); NEUTROPHILS # (AUTO) 7.6 X10'3 (1.8-7.7); NEUTROPHILS % (AUTO) 77.5 % (42-75); PLATELET COUNT 185 X10'3 (140-440); RED BLOOD COUNT 3.56 X10'6 (4.20-5.60); RED CELL DISTRIBUTION WIDTH 15.7 % (11.5-14.5); WHITE BLOOD COUNT 9.9 X10'3 (4.5-11.0)
[2017-11-06 06:56] LABS: ALBUMIN 2.3 G/DL (3.4-5.0); ANION GAP 5 (8-16); BLOOD UREA NITROGEN 10 MG/DL (7-18); BUN/CREATININE RATIO 20.4 (6.6-38.0); CALCIUM 8.3 MG/DL (8.5-10.1); CHLORIDE 100 MMOL/L (99-107); CREATININE 0.49 MG/DL (0.40-0.90); GLUCOSE 82 MG/DL (70-104); MAGNESIUM 1.8 MG/DL (1.5-2.4); POTASSIUM 3.5 MMOL/L (3.5-5.1); SODIUM 139 MMOL/L (135-145); TOTAL CARBON DIOXIDE 34.4 MMOL/L (24-32); eGFR > 90 ML/MIN
[2017-11-06 07:00] VITALS: BP 112/53
[2017-11-06] MEDS: lactobacillus rhamnosus 10,000 MMU CELLS/CAPSULE PO SCH ×2 (07:30→16:30)
[2017-11-06] MEDS: divalproex sodium 500mg tablet.DR PO SCH (08:00)
[2017-11-06] MEDS: aripiprazole 5mg tablet PO SCH (09:16)
[2017-11-06] MEDS: pyridoxine 50mg tablet PO SCH (09:16)
[2017-11-06] MEDS: multivitamins, therapeutics tablet PO SCH (09:17)
[2017-11-06] MEDS: levoTHYROXINE 25mcg tablet PO SCH (09:17)
[2017-11-06] MEDS: predniSONE 20 mg tablet PO SCH (09:17)
[2017-11-06] MEDS: quetiapine 100mg tablet PO SCH ×2 (09:17→22:26)
[2017-11-06] MEDS: fluvoxamine 25 MG tablet PO SCH ×2 (09:18→22:26)
[2017-11-06] MEDS: clonazePAM 1mg tablet PO SCH ×2 (09:18→22:25)
[2017-11-06] MEDS: metoprolol succinate 25mg (24-HOUR) SR. Tablet PO SCH (09:18)
[2017-11-06] MEDS: pantoprazole 40mg Tablet.DR PO SCH (09:18)
[2017-11-06 11:00] VITALS: BP 106/54
[2017-11-06] MEDS: levoFLOXACIN 750MG TABLET PO SCH (11:26)
[2017-11-06] MEDS: valproate sod 250mg/5ml UD oral syrup PO SCH ×3 (12:18→22:31)
[2017-11-06 15:00] VITALS: BP 129/60
[2017-11-06 18:30] VITALS: BP 124/61
[2017-11-06] MEDS: insulin glargine (Lantus) pen - multi-dose SQ SCH (21:00)
[2017-11-06 22:00] VITALS: BP 132/65
[2017-11-06] MEDS: pantoprazole 40 MG vial IV SCH (22:25)
[2017-11-06] MEDS: prazosin 1mg capsule PO SCH (22:26)
[2017-11-06] MEDS: OLANZapine 5mg rapidly disint. tablet PO SCH (22:26)
[2017-11-06] MEDS ORDERED: Dextrose 10%-water IV solution 1,000 ML ONE (23:09)
[2017-11-07] MEDS: Dextrose 10%-water IV solution 1,000 ML IV SCH ×2 (00:30→20:34)
[2017-11-07] MEDS: ipratropium 0.5 MG/2.5ML nebule IH SCH ×4 (02:52→20:33)
[2017-11-07 03:00] VITALS: BP 87/47
[2017-11-07 03:28] VITALS: BP 94/44
[2017-11-07 06:00] VITALS: BP 86/42
[2017-11-07 06:12] LABS: BASOPHILS % (AUTO) 0 % (0-1); EOSINOPHILS # (AUTO) 0.1 X10'3 (0-0.9); HEMATOCRIT 32.8 % (35.0-45.0); HEMOGLOBIN 10.9 g/dl (12.0-16.0); LYMPHOCYTES # (AUTO) 1.6 X10'3 (1.1-4.8); LYMPHOCYTES % (AUTO) 16.5 % (21-51); MEAN CORPUSCULAR HEMOGLOBIN 30.4 PG (27.0-31.0); MEAN CORPUSCULAR HGB CONC 33.3 % (33.0-36.5); MEAN CORPUSCULAR VOLUME 91.3 FL (78-98); MEAN PLATELET VOLUME 9.1 FL (7.4-10.4); MONOCYTES # (AUTO) 0.8 X10'3 (0-0.9); MONOCYTES % (AUTO) 7.9 % (2-12); NEUTROPHILS # (AUTO) 7.2 X10'3 (1.8-7.7); NEUTROPHILS % (AUTO) 74.6 % (42-75); PLATELET COUNT 185 X10'3 (140-440); RED BLOOD COUNT 3.59 X10'6 (4.20-5.60); RED CELL DISTRIBUTION WIDTH 16.1 % (11.5-14.5); WHITE BLOOD COUNT 9.7 X10'3 (4.5-11.0)
[2017-11-07 06:53] LABS: ALBUMIN 2.3 G/DL (3.4-5.0); ANION GAP 4 (8-16); BLOOD UREA NITROGEN 9 MG/DL (7-18); BUN/CREATININE RATIO 15.8 (6.6-38.0); CALCIUM 8.1 MG/DL (8.5-10.1); CHLORIDE 99 MMOL/L (99-107); CREATININE 0.57 MG/DL (0.40-0.90); GLUCOSE 145 MG/DL (70-104); MAGNESIUM 1.5 MG/DL (1.5-2.4); POTASSIUM 3.2 MMOL/L (3.5-5.1); SODIUM 135 MMOL/L (135-145); TOTAL CARBON DIOXIDE 32.4 MMOL/L (24-32); eGFR > 90 ML/MIN
[2017-11-07] MEDS: metoprolol succinate 25mg (24-HOUR) SR. Tablet PO SCH (08:00)
[2017-11-07] MEDS: clonazePAM 1mg tablet PO SCH ×2 (09:03→20:56)
[2017-11-07] MEDS: fluvoxamine 25 MG tablet PO SCH ×2 (09:04→20:58)
[2017-11-07] MEDS: aripiprazole 5mg tablet PO SCH (09:04)
[2017-11-07] MEDS: predniSONE 20 mg tablet PO SCH (09:05)
[2017-11-07] MEDS: pyridoxine 50mg tablet PO SCH (09:05)
[2017-11-07] MEDS: quetiapine 100mg tablet PO SCH ×2 (09:05→20:58)
[2017-11-07] MEDS: valproate sod 250mg/5ml UD oral syrup PO SCH ×4 (09:06→20:57)
[2017-11-07] MEDS: lactobacillus rhamnosus 10,000 MMU CELLS/CAPSULE PO SCH ×2 (09:06→17:24)
[2017-11-07] MEDS: multivitamins, therapeutics tablet PO SCH (09:06)
[2017-11-07] MEDS: pantoprazole 40 MG vial IV SCH ×2 (09:06→20:33)
[2017-11-07] MEDS: levoTHYROXINE 25mcg tablet PO SCH (09:08)
[2017-11-07 11:00] VITALS: BP 80/44
[2017-11-07] MEDS: levoFLOXACIN 750MG TABLET PO SCH (12:21)
[2017-11-07] MEDS ORDERED: normal saline 500ml IV soln 1,000 ML IV ONE (14:20)
[2017-11-07 15:00] VITALS: BP 96/58
[2017-11-07] MEDS ORDERED: potassium Cl oral solution 20 MEQ/15 ML PO PRN ×2 (17:40)
[2017-11-07] MEDS: OLANZapine 5mg rapidly disint. tablet PO SCH (20:58)
[2017-11-07] MEDS: prazosin 1mg capsule PO SCH (21:00)
[2017-11-07] MEDS: insulin glargine (Lantus) pen - multi-dose SQ SCH (21:00)
[2017-11-08] MEDS: ipratropium 0.5 MG/2.5ML nebule IH SCH ×4 (04:06→20:31)
[2017-11-08 06:00] VITALS: BP 115/55
[2017-11-08 06:31] LABS: BASOPHILS % (AUTO) 0.1 % (0-1); EOSINOPHILS # (AUTO) 0.2 X10'3 (0-0.9); EOSINOPHILS % (AUTO) 1.6 % (0-6); HEMATOCRIT 33.2 % (35.0-45.0); HEMOGLOBIN 11.1 g/dl (12.0-16.0); LYMPHOCYTES # (AUTO) 1.6 X10'3 (1.1-4.8); LYMPHOCYTES % (AUTO) 16.2 % (21-51); MEAN CORPUSCULAR HEMOGLOBIN 30.3 PG (27.0-31.0); MEAN CORPUSCULAR HGB CONC 33.3 % (33.0-36.5); MEAN CORPUSCULAR VOLUME 90.7 FL (78-98); MEAN PLATELET VOLUME 9.2 FL (7.4-10.4); MONOCYTES # (AUTO) 1.2 X10'3 (0-0.9); MONOCYTES % (AUTO) 12.2 % (2-12); NEUTROPHILS # (AUTO) 6.8 X10'3 (1.8-7.7); NEUTROPHILS % (AUTO) 69.9 % (42-75); PLATELET COUNT 211 X10'3 (140-440); RED BLOOD COUNT 3.66 X10'6 (4.20-5.60); RED CELL DISTRIBUTION WIDTH 16.2 % (11.5-14.5); WHITE BLOOD COUNT 9.8 X10'3 (4.5-11.0)
[2017-11-08 06:48] LABS: ALBUMIN 2.5 G/DL (3.4-5.0); ANION GAP 3 (8-16); BLOOD UREA NITROGEN 13 MG/DL (7-18); BUN/CREATININE RATIO 23.6 (6.6-38.0); CALCIUM 8.5 MG/DL (8.5-10.1); CHLORIDE 104 MMOL/L (99-107); CREATININE 0.55 MG/DL (0.40-0.90); GLUCOSE 87 MG/DL (70-104); MAGNESIUM 1.8 MG/DL (1.5-2.4); SODIUM 142 MMOL/L (135-145); TOTAL CARBON DIOXIDE 35.4 MMOL/L (24-32); eGFR > 90 ML/MIN
[2017-11-08] MEDS: metoprolol succinate 25mg (24-HOUR) SR. Tablet PO SCH (07:11)
[2017-11-08] MEDS: clonazePAM 1mg tablet PO SCH ×2 (09:55→21:28)
[2017-11-08] MEDS: levoTHYROXINE 25mcg tablet PO SCH (09:55)
[2017-11-08] MEDS: predniSONE 20 mg tablet PO SCH (09:56)
[2017-11-08] MEDS: lactobacillus rhamnosus 10,000 MMU CELLS/CAPSULE PO SCH ×2 (09:57→21:25)
[2017-11-08] MEDS: aripiprazole 5mg tablet PO SCH (09:57)
[2017-11-08] MEDS: multivitamins, therapeutics tablet PO SCH (09:58)
[2017-11-08] MEDS: quetiapine 100mg tablet PO SCH ×2 (09:58→21:26)
[2017-11-08] MEDS: fluvoxamine 25 MG tablet PO SCH ×2 (09:58→21:24)
[2017-11-08] MEDS: valproate sod 250mg/5ml UD oral syrup PO SCH ×4 (09:59→21:27)
[2017-11-08] MEDS: pantoprazole 40 MG vial IV SCH (10:00)
[2017-11-08] MEDS: pyridoxine 50mg tablet PO SCH (10:04)
[2017-11-08 11:00] VITALS: BP 91/44
[2017-11-08 15:00] VITALS: BP 103/55
[2017-11-08] MEDS: Dextrose 10%-water IV solution 1,000 ML IV SCH (17:45)
[2017-11-08 18:00] VITALS: BP 136/61
[2017-11-08] MEDS: insulin glargine (Lantus) pen - multi-dose SQ SCH (21:00)
[2017-11-08] MEDS: prazosin 1mg capsule PO SCH (21:24)
[2017-11-08] MEDS: OLANZapine 5mg rapidly disint. tablet PO SCH (21:25)
[2017-11-08] MEDS: pantoprazole 40mg Tablet.DR PO SCH (21:26)
[2017-11-08 22:00] VITALS: BP 122/60
[2017-11-09 02:00] VITALS: BP 112/62
[2017-11-09] MEDS: ipratropium 0.5 MG/2.5ML nebule IH SCH ×4 (02:41→20:48)
[2017-11-09 07:00] VITALS: BP 101/52
[2017-11-09] MEDS: lactobacillus rhamnosus 10,000 MMU CELLS/CAPSULE PO SCH ×2 (07:34→22:44)
[2017-11-09] MEDS: quetiapine 100mg tablet PO SCH ×2 (07:34→22:45)
[2017-11-09] MEDS: aripiprazole 5mg tablet PO SCH (07:34)
[2017-11-09] MEDS: pantoprazole 40mg Tablet.DR PO SCH ×2 (07:35→22:44)
[2017-11-09] MEDS: metoprolol succinate 25mg (24-HOUR) SR. Tablet PO SCH (07:35)
[2017-11-09] MEDS: predniSONE 20 mg tablet PO SCH (07:35)
[2017-11-09] MEDS: fluvoxamine 25 MG tablet PO SCH ×2 (07:35→22:44)
[2017-11-09] MEDS: pyridoxine 50mg tablet PO SCH (07:35)
[2017-11-09] MEDS: multivitamins, therapeutics tablet PO SCH (07:36)
[2017-11-09] MEDS: valproate sod 250mg/5ml UD oral syrup PO SCH ×4 (07:36→22:46)
[2017-11-09] MEDS: clonazePAM 1mg tablet PO SCH ×2 (07:36→22:46)
[2017-11-09] MEDS: levoTHYROXINE 25mcg tablet PO SCH (07:36)
[2017-11-09 11:00] VITALS: BP 101/52
[2017-11-09] MEDS: Dextrose 10%-water IV solution 1,000 ML IV SCH ×2 (11:35→17:15)
[2017-11-09 15:00] VITALS: BP 116/57
[2017-11-09 18:00] VITALS: BP 133/72
[2017-11-09] MEDS: insulin glargine (Lantus) pen - multi-dose SQ SCH (21:00)
[2017-11-09 22:00] VITALS: BP 131/65
[2017-11-09] MEDS: prazosin 1mg capsule PO SCH (22:45)
[2017-11-09] MEDS: OLANZapine 5mg rapidly disint. tablet PO SCH (22:45)
[2017-11-10 02:00] VITALS: BP 107/68
[2017-11-10] MEDS: ipratropium 0.5 MG/2.5ML nebule IH SCH ×4 (02:46→21:08)
[2017-11-10 07:00] VITALS: BP 97/56
[2017-11-10] MEDS: valproate sod 250mg/5ml UD oral syrup PO SCH ×4 (08:20→21:05)
[2017-11-10] MEDS: multivitamins, therapeutics tablet PO SCH (08:21)
[2017-11-10] MEDS: levoTHYROXINE 25mcg tablet PO SCH (08:21)
[2017-11-10] MEDS: pantoprazole 40mg Tablet.DR PO SCH ×2 (08:21→20:57)
[2017-11-10] MEDS: aripiprazole 5mg tablet PO SCH (08:21)
[2017-11-10] MEDS: fluvoxamine 25 MG tablet PO SCH ×2 (08:21→20:56)
[2017-11-10] MEDS: lactobacillus rhamnosus 10,000 MMU CELLS/CAPSULE PO SCH ×2 (08:21→20:56)
[2017-11-10] MEDS: metoprolol succinate 25mg (24-HOUR) SR. Tablet PO SCH (08:21)
[2017-11-10] MEDS: clonazePAM 1mg tablet PO SCH ×2 (08:21→20:55)
[2017-11-10] MEDS: pyridoxine 50mg tablet PO SCH (08:22)
[2017-11-10] MEDS: predniSONE 20 mg tablet PO SCH (08:22)
[2017-11-10] MEDS: quetiapine 100mg tablet PO SCH ×2 (08:22→20:57)
[2017-11-10 11:00] VITALS: BP 94/52
[2017-11-10 15:00] VITALS: BP 97/63
[2017-11-10 19:00] VITALS: BP 121/65
[2017-11-10] MEDS: prazosin 1mg capsule PO SCH (20:56)
[2017-11-10] MEDS: OLANZapine 5mg rapidly disint. tablet PO SCH (20:56)
[2017-11-10] MEDS: insulin glargine (Lantus) pen - multi-dose SQ SCH (21:00)
[2017-11-10 23:00] VITALS: BP 110/61
[2017-11-11] MEDS: ipratropium 0.5 MG/2.5ML nebule IH SCH ×2 (02:56→08:39)
[2017-11-11 03:00] VITALS: BP 119/68
[2017-11-11 07:00] VITALS: BP 96/53
[2017-11-11] MEDS: valproate sod 250mg/5ml UD oral syrup PO SCH ×2 (09:04→14:16)
[2017-11-11] MEDS: metoprolol succinate 25mg (24-HOUR) SR. Tablet PO SCH (09:05)
[2017-11-11] MEDS: predniSONE 20 mg tablet PO SCH (09:05)
[2017-11-11] MEDS: aripiprazole 5mg tablet PO SCH (09:05)
[2017-11-11] MEDS: pyridoxine 50mg tablet PO SCH (09:05)
[2017-11-11] MEDS: multivitamins, therapeutics tablet PO SCH (09:05)
[2017-11-11] MEDS: fluvoxamine 25 MG tablet PO SCH (09:05)
[2017-11-11] MEDS: pantoprazole 40mg Tablet.DR PO SCH (09:06)
[2017-11-11] MEDS: quetiapine 100mg tablet PO SCH (09:06)
[2017-11-11] MEDS: clonazePAM 1mg tablet PO SCH (09:06)
[2017-11-11] MEDS: lactobacillus rhamnosus 10,000 MMU CELLS/CAPSULE PO SCH (09:06)
[2017-11-11] MEDS: levoTHYROXINE 25mcg tablet PO SCH (09:18)
== END 2017-11-11 14:50 | DRG 871 ==
LOC: ER 08:17 → ED HOLD 11:25 → EDBEDREQ 12:58 → PCU 3S 13:40
PROVIDERS: ADMIT Family Medicine; ATTEND Family Medicine
PROC: 30233N1 Transfusion of Nonautologous Red Blood Cells into Peripheral Vein, Percutaneous Approach (ICD-10-PCS; principal; 2017-10-27)
PROC: B32T1ZZ Computerized Tomography (CT Scan) of Left Pulmonary Artery using Low Osmolar Contrast (ICD-10-PCS; 2017-10-29)
PROC: B3201ZZ Computerized Tomography (CT Scan) of Thoracic Aorta using Low Osmolar Contrast (ICD-10-PCS; 2017-10-29)
PROC: B32S1ZZ Computerized Tomography (CT Scan) of Right Pulmonary Artery using Low Osmolar Contrast (ICD-10-PCS; 2017-10-29)
DX: A41.9 Sepsis, unspecified organism (principal); J96.01 Acute respiratory failure with hypoxia; E43 Unspecified severe protein-calorie malnutrition; J69.0 Pneumonitis due to inhalation of food and vomit; G93.40 Encephalopathy, unspecified; R13.10 Dysphagia, unspecified; J98.11 Atelectasis; B34.9 Viral infection, unspecified; D64.9 Anemia, unspecified; R79.89 Other specified abnormal findings of blood chemistry; E03.9 Hypothyroidism, unspecified; E87.6 Hypokalemia; F20.9 Schizophrenia, unspecified; I10 Essential (primary) hypertension; R56.9 Unspecified convulsions; R47.02 Dysphasia; Z91.011 Allergy to milk products; Z88.8 Allergy status to other drugs, medicaments and biological substances; Z79.899 Other long term (current) drug therapy; Z86.73 Personal history of transient ischemic attack (TIA), and cerebral infarction without residual deficits; Z87.19 Personal history of other diseases of the digestive system; Z91.410 Personal history of adult physical and sexual abuse; Z68.26 Body mass index [BMI] 26.0-26.9, adult
CPT/HCPCS: 36415; 71045; 71275; 74018; 74230; 80048; 80053; 81001; 82948; 83605; 83735; 84132; 84134; 84145; 85025; 85610; 85730; 86140; 86885; 86900; 86901; 86920; 87040; 87070; 87502; 87503; 90732; 93005; 94640; 94760; 96365; 97110; 97116; 97161; 97530; 99285; A4315; A6250; C9113; J1815; J1956; J2060; J2543; J2920; J2930; J7030; J7070; J7512; P9016; Q2037; Q9967

== ENCOUNTER 2018-08-20 11:21 | Inpatient (IN) | payer MEDICARE, MEDICAID ==
[~2018-08-20] VITALS: Ht 162.6 cm; Wt 63.0 kg
[~2018-08-20 11:21] MED LIST changes: -LORA2VIA27 IM; +LORA2VIA30 IM; +MULT1TAB74 PO; +PRAZ1CAP5 PO; +PYRI50TA10 PO
[2018-08-20] MEDS ORDERED: normal saline 1000ML IV soln IV ONE (12:15)
[2018-08-20] MEDS ORDERED: pantoprazole IV 80 MG in normal saline 100ml IV soln 100 ML IV ONE (12:15)
[2018-08-20] MEDS ORDERED: tranexamic acid 100mg/ml inj. IV ONE (12:15)
[2018-08-20] MEDS ORDERED: pantoprazole 40 MG vial IV ONE ×2 (12:35→12:40)
[2018-08-20 12:50] LABS: BASOPHILS % (AUTO) 0.2 % (0-1); EOSINOPHILS % (AUTO) 0 % (0-6); HEMOGLOBIN 9.9 g/dl (12.0-16.0); LYMPHOCYTES # (AUTO) 1.3 X10'3 (1.1-4.8); LYMPHOCYTES % (AUTO) 12.8 % (21-51); MEAN CORPUSCULAR HEMOGLOBIN 33.9 PG (27.0-31.0); MEAN CORPUSCULAR HGB CONC 35.3 % (33.0-36.5); MEAN CORPUSCULAR VOLUME 96.2 FL (78-98); MEAN PLATELET VOLUME 9.9 FL (7.4-10.4); MONOCYTES # (AUTO) 0.6 X10'3 (0-0.9); NEUTROPHILS # (AUTO) 7.9 X10'3 (1.8-7.7); PLATELET COUNT 151 X10'3 (140-440); RED BLOOD COUNT 2.91 X10'6 (4.20-5.60); RED CELL DISTRIBUTION WIDTH 13.8 % (11.5-14.5); WHITE BLOOD COUNT 9.8 X10'3 (4.5-11.0)
[2018-08-20 13:06] LABS: INR 1.2 INR; PROTHROMBIN TIME 12.1 SECONDS (9.0-12.0)
[2018-08-20 13:07] LABS: PARTIAL THROMBOPLASTIN TIME 28 SECONDS (22-32)
[2018-08-20 13:11] LABS: ALANINE AMINOTRANSFERASE 14 U/L (12-78); ALBUMIN 2.3 G/DL (3.4-5.0); ALBUMIN/GLOBULIN RATIO 0.7 (1.1-1.5); ALKALINE PHOSPHATASE 75 IU/L (46-116); ANION GAP 7 (8-16); ASPARTATE AMINO TRANSFERASE 13 U/L (10-37); BILIRUBIN,TOTAL 0.3 MG/DL (0.1-1.0); BLOOD UREA NITROGEN 45 MG/DL (7-18); BUN/CREATININE RATIO 64.3 (6.6-38.0); CALCIUM 7.8 MG/DL (8.5-10.1); CHLORIDE 100 MMOL/L (99-107); GLUCOSE 101 MG/DL (70-104); POTASSIUM 4.1 MMOL/L (3.5-5.1); SODIUM 137 MMOL/L (135-145); TOTAL PROTEIN 5.4 G/DL (6.4-8.2); eGFR 83 ML/MIN
[2018-08-20] MEDS ORDERED: mag hydrox/Alum hydrox/simeth 30ml oral suspension PO PRN (14:40)
[2018-08-20] MEDS ORDERED: magnesium hydroxide 30ml (MOM) UD suspension PO PRN (14:40)
[2018-08-20] MEDS ORDERED: morphine 2 MG/ML inj. syringe IV PRN ×2 (14:40)
[2018-08-20] MEDS: pantoprazole 40 MG vial IV SCH ×2 (14:40→19:46)
[2018-08-20] MEDS ORDERED: ondansetron/PF 4mg/2ml inj IV PRN (14:40)
[2018-08-20] MEDS ORDERED: acetaminophen 325mg tablet PO PRN (14:40)
[2018-08-20 14:56] LABS: CLARITY,URINE CLOUDY (Clear); COLOR,URINE YELLOW (Yellow); GLUCOSE, URINE NEGATIVE (Neg); KETONES,URINE TRACE mg/dl (Neg); LEUKOCYTE ESTERASE ,URINE SMALL (Neg); NITRITES, URINE NEGATIVE (Neg); OCCULT BLOOD,URINE NEGATIVE (Neg); PROTEIN,URINE NEGATIVE (Neg)
[2018-08-20 14:58] LABS: UA COLLECTION TYPE STRAIGHT CATH
[2018-08-20 15:07] LABS: BACTERIA,URINE 3+ /HPF (Neg); SQUAMOUS EPITHELIAL CELL,UR FEW /LPF (FEW); WBC,URINE 20-30 /HPF (0-4)
[2018-08-20 15:08] LABS: RBC,URINE 0-2 /HPF (0-2)
[2018-08-20] MEDS: normal saline 1000ml 1,000 ML IV SCH (15:13)
[2018-08-20] MEDS: pantoprazole 40MG/NS 100ML BAG 100 ML IV SCH ×2 (15:14→16:00)
[2018-08-20] MEDS ORDERED: FERR325T28 PO (16:13)
[2018-08-20] MEDS ORDERED: PANT-47 PO (16:17)
[2018-08-20] MEDS ORDERED: METO1TAB25 PO (16:22)
[2018-08-20] MEDS ORDERED: METO25TA6 PO (16:22)
[2018-08-20] MEDS ORDERED: VALP250C44 (16:25)
[2018-08-20] MEDS ORDERED: ACET-2119 PO (16:25)
[2018-08-20 17:28] VITALS: BP 98/57
[2018-08-20 18:42] LABS: BASOPHILS % (AUTO) 0.2 % (0-1); EOSINOPHILS # (AUTO) 0.2 X10'3 (0-0.9); EOSINOPHILS % (AUTO) 1.6 % (0-6); HEMATOCRIT 29.6 % (35.0-45.0); HEMOGLOBIN 9.9 g/dl (12.0-16.0); LYMPHOCYTES # (AUTO) 1.4 X10'3 (1.1-4.8); LYMPHOCYTES % (AUTO) 13.3 % (21-51); MEAN CORPUSCULAR HEMOGLOBIN 32.6 PG (27.0-31.0); MEAN CORPUSCULAR HGB CONC 33.6 % (33.0-36.5); MEAN CORPUSCULAR VOLUME 97.1 FL (78-98); MEAN PLATELET VOLUME 9.8 FL (7.4-10.4); MONOCYTES # (AUTO) 0.9 X10'3 (0-0.9); MONOCYTES % (AUTO) 8.1 % (2-12); NEUTROPHILS # (AUTO) 8.2 X10'3 (1.8-7.7); NEUTROPHILS % (AUTO) 76.8 % (42-75); PLATELET COUNT 133 X10'3 (140-440); RED BLOOD COUNT 3.05 X10'6 (4.20-5.60); RED CELL DISTRIBUTION WIDTH 14.5 % (11.5-14.5); WHITE BLOOD COUNT 10.7 X10'3 (4.5-11.0)
[2018-08-20 20:00] VITALS: BP 104/48
[2018-08-21] VITALS (19 sets, daily range): BP systolic 104–141; BP diastolic 44–81
[2018-08-21] MEDS: normal saline 1000ml 1,000 ML IV SCH ×3 (00:36→12:30)
[2018-08-21 01:23] LABS: ALBUMIN 2.3 G/DL (3.4-5.0); ANION GAP 6 (8-16); BLOOD UREA NITROGEN 36 MG/DL (7-18); BUN/CREATININE RATIO 69.2 (6.6-38.0); CHLORIDE 107 MMOL/L (99-107); CREATININE 0.52 MG/DL (0.40-0.90); GLUCOSE 86 MG/DL (70-104); POTASSIUM 3.9 MMOL/L (3.5-5.1); SODIUM 142 MMOL/L (135-145); TOTAL CARBON DIOXIDE 28.8 MMOL/L (24-32); eGFR > 90 ML/MIN
[2018-08-21 01:56] LABS: BASOPHILS % (AUTO) 0.4 % (0-1); EOSINOPHILS # (AUTO) 0.1 X10'3 (0-0.9); EOSINOPHILS % (AUTO) 0.9 % (0-6); HEMATOCRIT 25.2 % (35.0-45.0); HEMOGLOBIN 8.9 g/dl (12.0-16.0); LYMPHOCYTES # (AUTO) 2.6 X10'3 (1.1-4.8); LYMPHOCYTES % (AUTO) 28.5 % (21-51); MEAN CORPUSCULAR HEMOGLOBIN 33.9 PG (27.0-31.0); MEAN CORPUSCULAR HGB CONC 35.4 % (33.0-36.5); MEAN CORPUSCULAR VOLUME 95.7 FL (78-98); MEAN PLATELET VOLUME 10.1 FL (7.4-10.4); MONOCYTES # (AUTO) 0.6 X10'3 (0-0.9); MONOCYTES % (AUTO) 6.2 % (2-12); NEUTROPHILS # (AUTO) 5.8 X10'3 (1.8-7.7); PLATELET COUNT 132 X10'3 (140-440); RED BLOOD COUNT 2.63 X10'6 (4.20-5.60); RED CELL DISTRIBUTION WIDTH 13.9 % (11.5-14.5); WHITE BLOOD COUNT 9.1 X10'3 (4.5-11.0)
[2018-08-21 10:08] LABS: BASOPHILS % (AUTO) 0.8 % (0-1); EOSINOPHILS # (AUTO) 0.1 X10'3 (0-0.9); EOSINOPHILS % (AUTO) 2.1 % (0-6); HEMATOCRIT 23.8 % (35.0-45.0); HEMOGLOBIN 8.2 g/dl (12.0-16.0); LYMPHOCYTES # (AUTO) 1.8 X10'3 (1.1-4.8); LYMPHOCYTES % (AUTO) 31.2 % (21-51); MEAN CORPUSCULAR HEMOGLOBIN 33.2 PG (27.0-31.0); MEAN CORPUSCULAR HGB CONC 34.4 % (33.0-36.5); MEAN CORPUSCULAR VOLUME 96.8 FL (78-98); MEAN PLATELET VOLUME 9.4 FL (7.4-10.4); MONOCYTES # (AUTO) 0.4 X10'3 (0-0.9); MONOCYTES % (AUTO) 6.9 % (2-12); NEUTROPHILS # (AUTO) 3.4 X10'3 (1.8-7.7); PLATELET COUNT 128 X10'3 (140-440); RED BLOOD COUNT 2.46 X10'6 (4.20-5.60); WHITE BLOOD COUNT 5.8 X10'3 (4.5-11.0)
[2018-08-21] MEDS: pantoprazole 40 MG vial IV SCH ×2 (10:09→20:12)
[2018-08-21] MEDS ORDERED: LIDOcaine Viscous 15ml cup ONE (14:53)
[2018-08-21] MEDS ORDERED: MIDAZolam 5mg/5ml vial ONE (14:53)
[2018-08-21] MEDS ORDERED: fentaNYL/PF 50MCG/1 ML 2ML syringe ONE (14:53)
[2018-08-21 16:52] LABS: BASOPHILS % (AUTO) 0.4 % (0-1); EOSINOPHILS # (AUTO) 0.1 X10'3 (0-0.9); EOSINOPHILS % (AUTO) 1.9 % (0-6); HEMATOCRIT 27.3 % (35.0-45.0); HEMOGLOBIN 9.2 g/dl (12.0-16.0); LYMPHOCYTES # (AUTO) 1.4 X10'3 (1.1-4.8); LYMPHOCYTES % (AUTO) 24.5 % (21-51); MEAN CORPUSCULAR HEMOGLOBIN 32.4 PG (27.0-31.0); MEAN CORPUSCULAR HGB CONC 33.7 % (33.0-36.5); MEAN PLATELET VOLUME 9.2 FL (7.4-10.4); MONOCYTES # (AUTO) 0.5 X10'3 (0-0.9); MONOCYTES % (AUTO) 9.1 % (2-12); NEUTROPHILS # (AUTO) 3.7 X10'3 (1.8-7.7); NEUTROPHILS % (AUTO) 64.1 % (42-75); PLATELET COUNT 123 X10'3 (140-440); RED BLOOD COUNT 2.85 X10'6 (4.20-5.60); RED CELL DISTRIBUTION WIDTH 15.1 % (11.5-14.5); WHITE BLOOD COUNT 5.8 X10'3 (4.5-11.0)
[2018-08-21] MEDS: valproic acid 250mg capsule PO SCH (20:00)
[2018-08-21] MEDS: metoprolol tartrate 25mg tablet PO SCH (20:00)
[2018-08-21] MEDS: quetiapine 100mg tablet PO SCH (20:00)
[2018-08-21] MEDS: fluvoxamine 25 MG tablet PO SCH (20:00)
[2018-08-21] MEDS: prazosin 1mg capsule PO SCH (21:00)
[2018-08-22] VITALS: BP 124/60
[2018-08-22 01:48] LABS: ALBUMIN 2.3 G/DL (3.4-5.0); ANION GAP 8 (8-16); BLOOD UREA NITROGEN 15 MG/DL (7-18); BUN/CREATININE RATIO 39.5 (6.6-38.0); CALCIUM 8.2 MG/DL (8.5-10.1); CHLORIDE 107 MMOL/L (99-107); CREATININE 0.38 MG/DL (0.40-0.90); GLUCOSE 78 MG/DL (70-104); POTASSIUM 3.6 MMOL/L (3.5-5.1); SODIUM 142 MMOL/L (135-145); TOTAL CARBON DIOXIDE 27.2 MMOL/L (24-32); eGFR > 90 ML/MIN
[2018-08-22] MEDS: normal saline 1000ml 1,000 ML IV SCH ×2 (01:50→16:19)
[2018-08-22 02:17] LABS: BASOPHILS % (AUTO) 0.6 % (0-1); EOSINOPHILS # (AUTO) 0.1 X10'3 (0-0.9); EOSINOPHILS % (AUTO) 2.9 % (0-6); HEMOGLOBIN 7.7 g/dl (12.0-16.0); LYMPHOCYTES # (AUTO) 1.6 X10'3 (1.1-4.8); LYMPHOCYTES % (AUTO) 36.4 % (21-51); MEAN CORPUSCULAR HEMOGLOBIN 32.1 PG (27.0-31.0); MEAN CORPUSCULAR HGB CONC 33.3 % (33.0-36.5); MEAN CORPUSCULAR VOLUME 96.3 FL (78-98); MEAN PLATELET VOLUME 9.9 FL (7.4-10.4); MONOCYTES # (AUTO) 0.4 X10'3 (0-0.9); MONOCYTES % (AUTO) 8.7 % (2-12); NEUTROPHILS # (AUTO) 2.3 X10'3 (1.8-7.7); NEUTROPHILS % (AUTO) 51.4 % (42-75); PLATELET COUNT 113 X10'3 (140-440); RED BLOOD COUNT 2.39 X10'6 (4.20-5.60); RED CELL DISTRIBUTION WIDTH 14.7 % (11.5-14.5); WHITE BLOOD COUNT 4.5 X10'3 (4.5-11.0)
[2018-08-22 08:00] VITALS: BP 117/51
[2018-08-22] MEDS: pantoprazole 40 MG vial IV SCH (08:00)
[2018-08-22] MEDS ORDERED: pantoprazole 40mg Tablet.DR PO SCH (08:00)
[2018-08-22] MEDS: ferrous sulfate 325mg tablet PO SCH (08:41)
[2018-08-22] MEDS: valproic acid 250mg capsule PO SCH ×2 (08:41→20:13)
[2018-08-22] MEDS: fluvoxamine 25 MG tablet PO SCH ×2 (08:42→20:12)
[2018-08-22] MEDS: multivitamins, therapeutics tablet PO SCH (08:42)
[2018-08-22] MEDS: pyridoxine 50mg tablet PO SCH (08:42)
[2018-08-22] MEDS: aripiprazole 5mg tablet PO SCH (08:43)
[2018-08-22] MEDS: levoTHYROXINE 25mcg tablet PO SCH (08:44)
[2018-08-22] MEDS: metoprolol tartrate 25mg tablet PO SCH ×2 (08:44→20:10)
[2018-08-22] MEDS: quetiapine 100mg tablet PO SCH ×2 (08:45→20:11)
[2018-08-22 12:09] VITALS: BP_SYST 122; BP_SYST 96; BP_DIAS 40; BP_DIAS 59
[2018-08-22 12:16] VITALS: BP 122/59
[2018-08-22 13:38] LABS: BASOPHILS % (AUTO) 0.8 % (0-1); EOSINOPHILS # (AUTO) 0.1 X10'3 (0-0.9); EOSINOPHILS % (AUTO) 2.4 % (0-6); HEMATOCRIT 22.5 % (35.0-45.0); HEMOGLOBIN 7.8 g/dl (12.0-16.0); LYMPHOCYTES # (AUTO) 1.1 X10'3 (1.1-4.8); LYMPHOCYTES % (AUTO) 32.8 % (21-51); MEAN CORPUSCULAR HGB CONC 34.5 % (33.0-36.5); MEAN CORPUSCULAR VOLUME 95.5 FL (78-98); MEAN PLATELET VOLUME 9.2 FL (7.4-10.4); MONOCYTES # (AUTO) 0.2 X10'3 (0-0.9); MONOCYTES % (AUTO) 5.8 % (2-12); NEUTROPHILS % (AUTO) 58.2 % (42-75); PLATELET COUNT 109 X10'3 (140-440); RED BLOOD COUNT 2.36 X10'6 (4.20-5.60); RED CELL DISTRIBUTION WIDTH 14.8 % (11.5-14.5); WHITE BLOOD COUNT 3.5 X10'3 (4.5-11.0)
[2018-08-22 17:06] LABS: BASOPHILS % (AUTO) 1.1 % (0-1); EOSINOPHILS # (AUTO) 0.1 X10'3 (0-0.9); EOSINOPHILS % (AUTO) 3.9 % (0-6); HEMATOCRIT 23.8 % (35.0-45.0); HEMOGLOBIN 8.3 g/dl (12.0-16.0); LYMPHOCYTES # (AUTO) 1.2 X10'3 (1.1-4.8); LYMPHOCYTES % (AUTO) 33.8 % (21-51); MEAN CORPUSCULAR HEMOGLOBIN 33.1 PG (27.0-31.0); MEAN CORPUSCULAR HGB CONC 34.7 % (33.0-36.5); MEAN CORPUSCULAR VOLUME 95.4 FL (78-98); MEAN PLATELET VOLUME 9.7 FL (7.4-10.4); MONOCYTES # (AUTO) 0.2 X10'3 (0-0.9); MONOCYTES % (AUTO) 6.7 % (2-12); NEUTROPHILS # (AUTO) 1.9 X10'3 (1.8-7.7); NEUTROPHILS % (AUTO) 54.5 % (42-75); PLATELET COUNT 116 X10'3 (140-440); RED CELL DISTRIBUTION WIDTH 14.8 % (11.5-14.5); WHITE BLOOD COUNT 3.5 X10'3 (4.5-11.0)
[2018-08-22 18:00] VITALS: BP 108/55
[2018-08-22 20:00] VITALS: BP_SYST 108; BP_SYST 114; BP_DIAS 54; BP_DIAS 55
[2018-08-22] MEDS: prazosin 1mg capsule PO SCH (20:09)
[2018-08-22] MEDS: pantoprazole 40mg Tablet.DR PO SCH (20:12)
[2018-08-23] VITALS: BP 85/47
[2018-08-23] MEDS: normal saline 1000ml 1,000 ML IV SCH ×3 (02:37→23:03)
[2018-08-23 05:40] LABS: ALBUMIN 2.3 G/DL (3.4-5.0); ANION GAP 8 (8-16); BLOOD UREA NITROGEN 11 MG/DL (7-18); CALCIUM 8.4 MG/DL (8.5-10.1); CHLORIDE 104 MMOL/L (99-107); CREATININE 0.44 MG/DL (0.40-0.90); GLUCOSE 106 MG/DL (70-104); SODIUM 139 MMOL/L (135-145); TOTAL CARBON DIOXIDE 27.3 MMOL/L (24-32); eGFR > 90 ML/MIN
[2018-08-23 06:20] LABS: EOSINOPHILS # (AUTO) 0.2 X10'3 (0-0.9); EOSINOPHILS % (AUTO) 5.2 % (0-6); HEMATOCRIT 23.4 % (35.0-45.0); LYMPHOCYTES # (AUTO) 1.7 X10'3 (1.1-4.8); MEAN CORPUSCULAR HGB CONC 34.3 % (33.0-36.5); MEAN CORPUSCULAR VOLUME 96.4 FL (78-98); MONOCYTES # (AUTO) 0.3 X10'3 (0-0.9); MONOCYTES % (AUTO) 9.8 % (2-12); NEUTROPHILS # (AUTO) 1.3 X10'3 (1.8-7.7); PLATELET COUNT 124 X10'3 (140-440); RED BLOOD COUNT 2.42 X10'6 (4.20-5.60); RED CELL DISTRIBUTION WIDTH 14.8 % (11.5-14.5); WHITE BLOOD COUNT 3.5 X10'3 (4.5-11.0)
[2018-08-23 07:36] VITALS: BP_SYST 101; BP_SYST 90; BP_DIAS 46; BP_DIAS 56
[2018-08-23] MEDS: metoprolol tartrate 25mg tablet PO SCH ×2 (08:00→20:36)
[2018-08-23] MEDS: aripiprazole 5mg tablet PO SCH (09:34)
[2018-08-23] MEDS: valproic acid 250mg capsule PO SCH ×2 (09:34→20:39)
[2018-08-23] MEDS: ferrous sulfate 325mg tablet PO SCH (09:34)
[2018-08-23] MEDS: fluvoxamine 25 MG tablet PO SCH ×2 (09:35→20:38)
[2018-08-23] MEDS: quetiapine 100mg tablet PO SCH ×2 (09:37→20:38)
[2018-08-23] MEDS: pantoprazole 40mg Tablet.DR PO SCH ×2 (09:37→20:35)
[2018-08-23] MEDS: levoTHYROXINE 25mcg tablet PO SCH (09:37)
[2018-08-23] MEDS: multivitamins, therapeutics tablet PO SCH (09:38)
[2018-08-23] MEDS: pyridoxine 50mg tablet PO SCH (09:38)
[2018-08-23 12:42] VITALS: BP 130/63
[2018-08-23 19:00] VITALS: BP 133/63
[2018-08-23] MEDS: prazosin 1mg capsule PO SCH (20:39)
[2018-08-24 06:11] LABS: BASOPHILS % (AUTO) 0.6 % (0-1); EOSINOPHILS # (AUTO) 0.1 X10'3 (0-0.9); EOSINOPHILS % (AUTO) 4.4 % (0-6); HEMATOCRIT 23.5 % (35.0-45.0); LYMPHOCYTES # (AUTO) 1.5 X10'3 (1.1-4.8); LYMPHOCYTES % (AUTO) 45.7 % (21-51); MEAN CORPUSCULAR HEMOGLOBIN 32.9 PG (27.0-31.0); MEAN CORPUSCULAR VOLUME 96.9 FL (78-98); MEAN PLATELET VOLUME 9.6 FL (7.4-10.4); MONOCYTES # (AUTO) 0.3 X10'3 (0-0.9); MONOCYTES % (AUTO) 9.6 % (2-12); NEUTROPHILS # (AUTO) 1.3 X10'3 (1.8-7.7); NEUTROPHILS % (AUTO) 39.7 % (42-75); PLATELET COUNT 166 X10'3 (140-440); RED BLOOD COUNT 2.43 X10'6 (4.20-5.60); WHITE BLOOD COUNT 3.3 X10'3 (4.5-11.0)
[2018-08-24 06:27] LABS: ALBUMIN 2.3 G/DL (3.4-5.0); ANION GAP 6 (8-16); BLOOD UREA NITROGEN 7 MG/DL (7-18); BUN/CREATININE RATIO 16.7 (6.6-38.0); CALCIUM 8.1 MG/DL (8.5-10.1); CHLORIDE 105 MMOL/L (99-107); CREATININE 0.42 MG/DL (0.40-0.90); GLUCOSE 102 MG/DL (70-104); POTASSIUM 3.9 MMOL/L (3.5-5.1); SODIUM 141 MMOL/L (135-145); TOTAL CARBON DIOXIDE 30.5 MMOL/L (24-32); eGFR > 90 ML/MIN
[2018-08-24 07:00] VITALS: BP_SYST 128; BP_SYST 130; BP_DIAS 54; BP_DIAS 59
[2018-08-24] MEDS: normal saline 1000ml 1,000 ML IV SCH ×3 (08:36→18:55)
[2018-08-24] MEDS: fluvoxamine 25 MG tablet PO SCH ×2 (08:56→19:15)
[2018-08-24] MEDS: pantoprazole 40mg Tablet.DR PO SCH ×2 (08:57→19:15)
[2018-08-24] MEDS: ferrous sulfate 325mg tablet PO SCH (08:57)
[2018-08-24] MEDS: pyridoxine 50mg tablet PO SCH (08:57)
[2018-08-24] MEDS: quetiapine 100mg tablet PO SCH ×2 (08:57→19:15)
[2018-08-24] MEDS: multivitamins, therapeutics tablet PO SCH (08:57)
[2018-08-24] MEDS: valproic acid 250mg capsule PO SCH ×2 (08:57→19:18)
[2018-08-24] MEDS: levoTHYROXINE 25mcg tablet PO SCH (08:57)
[2018-08-24] MEDS: metoprolol tartrate 25mg tablet PO SCH ×2 (08:58→19:15)
[2018-08-24] MEDS: aripiprazole 5mg tablet PO SCH (08:58)
[2018-08-24 12:29] VITALS: BP 109/60
[2018-08-24 12:34] VITALS: BP_SYST 109; BP_SYST 119; BP_DIAS 50; BP_DIAS 60; BP_DIAS 66
[2018-08-24 18:00] VITALS: BP 118/79
[2018-08-24 20:00] VITALS: BP 118/79
[2018-08-24] MEDS: prazosin 1mg capsule PO SCH (20:12)
[2018-08-25] VITALS: BP 110/62
[2018-08-25] MEDS: normal saline 1000ml 1,000 ML IV SCH (04:06)
[2018-08-25 06:39] LABS: BASOPHILS % (AUTO) 0.5 % (0-1); EOSINOPHILS # (AUTO) 0.2 X10'3 (0-0.9); EOSINOPHILS % (AUTO) 5.4 % (0-6); HEMATOCRIT 22.1 % (35.0-45.0); HEMOGLOBIN 7.4 g/dl (12.0-16.0); LYMPHOCYTES # (AUTO) 1.5 X10'3 (1.1-4.8); LYMPHOCYTES % (AUTO) 47.7 % (21-51); MEAN CORPUSCULAR HGB CONC 33.8 % (33.0-36.5); MEAN CORPUSCULAR VOLUME 97.7 FL (78-98); MEAN PLATELET VOLUME 9.1 FL (7.4-10.4); MONOCYTES # (AUTO) 0.3 X10'3 (0-0.9); NEUTROPHILS # (AUTO) 1.1 X10'3 (1.8-7.7); NEUTROPHILS % (AUTO) 37.4 % (42-75); PLATELET COUNT 186 X10'3 (140-440); RED BLOOD COUNT 2.26 X10'6 (4.20-5.60); RED CELL DISTRIBUTION WIDTH 15.3 % (11.5-14.5); WHITE BLOOD COUNT 3.1 X10'3 (4.5-11.0)
[2018-08-25 06:51] LABS: ALBUMIN 2.1 G/DL (3.4-5.0); ANION GAP 3 (8-16); BLOOD UREA NITROGEN 7 MG/DL (7-18); BUN/CREATININE RATIO 14.6 (6.6-38.0); CHLORIDE 108 MMOL/L (99-107); CREATININE 0.48 MG/DL (0.40-0.90); GLUCOSE 103 MG/DL (70-104); POTASSIUM 4.4 MMOL/L (3.5-5.1); SODIUM 142 MMOL/L (135-145); TOTAL CARBON DIOXIDE 31.3 MMOL/L (24-32); eGFR > 90 ML/MIN
[2018-08-25 07:00] VITALS: BP 144/72
[2018-08-25 08:00] VITALS: BP_SYST 127; BP_SYST 136; BP_SYST 144; BP_DIAS 65; BP_DIAS 70; BP_DIAS 72
[2018-08-25] MEDS: pantoprazole 40mg Tablet.DR PO SCH ×2 (08:58→21:33)
[2018-08-25] MEDS: ferrous sulfate 325mg tablet PO SCH (08:58)
[2018-08-25] MEDS: multivitamins, therapeutics tablet PO SCH (08:58)
[2018-08-25] MEDS: levoTHYROXINE 25mcg tablet PO SCH (08:58)
[2018-08-25] MEDS: quetiapine 100mg tablet PO SCH ×2 (08:59→21:33)
[2018-08-25] MEDS: metoprolol tartrate 25mg tablet PO SCH ×2 (08:59→21:33)
[2018-08-25] MEDS: aripiprazole 5mg tablet PO SCH (08:59)
[2018-08-25] MEDS: valproic acid 250mg capsule PO SCH ×2 (09:00→21:32)
[2018-08-25] MEDS: pyridoxine 50mg tablet PO SCH (09:00)
[2018-08-25] MEDS: fluvoxamine 25 MG tablet PO SCH ×2 (09:00→21:34)
[2018-08-25 11:00] VITALS: BP 96/57
[2018-08-25] MEDS ORDERED: morphine 4 MG/ML inj SYRINge IV PRN ×2 (15:57)
[2018-08-25 20:00] VITALS: BP_SYST 114; BP_SYST 119; BP_SYST 124; BP_DIAS 62; BP_DIAS 70
[2018-08-25] MEDS: prazosin 1mg capsule PO SCH (21:33)
[2018-08-26] VITALS: BP 135/57
[2018-08-26 08:00] VITALS: BP 123/55
[2018-08-26] MEDS: aripiprazole 5mg tablet PO SCH (08:33)
[2018-08-26] MEDS: ferrous sulfate 325mg tablet PO SCH (08:33)
[2018-08-26] MEDS: valproic acid 250mg capsule PO SCH (08:33)
[2018-08-26] MEDS: fluvoxamine 25 MG tablet PO SCH (08:34)
[2018-08-26] MEDS: pantoprazole 40mg Tablet.DR PO SCH (08:35)
[2018-08-26] MEDS: metoprolol tartrate 25mg tablet PO SCH (08:35)
[2018-08-26] MEDS: quetiapine 100mg tablet PO SCH (08:35)
[2018-08-26] MEDS: levoTHYROXINE 25mcg tablet PO SCH (08:36)
[2018-08-26] MEDS: multivitamins, therapeutics tablet PO SCH (08:37)
[2018-08-26] MEDS: pyridoxine 50mg tablet PO SCH (08:37)
[2018-08-26 12:00] VITALS: BP 97/41
[2018-08-28 10:49] LABS: OCCULT BLOOD STOOL POSITIVE (Neg)
== END 2018-08-26 12:42 | DRG 377 ==
LOC: ER 11:21 → ED HOLD 14:36 → SUR 3N 17:17
PROVIDERS: ADMIT Internal Medicine; ATTEND Family Medicine
PROC: 0D738ZZ Dilation of Lower Esophagus, Via Natural or Artificial Opening Endoscopic (ICD-10-PCS; principal; 2018-08-21)
DX: K92.2 Gastrointestinal hemorrhage, unspecified (principal); E43 Unspecified severe protein-calorie malnutrition; D62 Acute posthemorrhagic anemia; K22.2 Esophageal obstruction; D50.9 Iron deficiency anemia, unspecified; E03.9 Hypothyroidism, unspecified; F20.9 Schizophrenia, unspecified; F31.9 Bipolar disorder, unspecified; K22.4 Dyskinesia of esophagus; R13.14 Dysphagia, pharyngoesophageal phase; I10 Essential (primary) hypertension; K21.9 Gastro-esophageal reflux disease without esophagitis; K22.8 Other specified diseases of esophagus; K63.89 Other specified diseases of intestine; Z79.899 Other long term (current) drug therapy; Z79.890 Hormone replacement therapy; Z88.8 Allergy status to other drugs, medicaments and biological substances; Z91.011 Allergy to milk products; Z87.11 Personal history of peptic ulcer disease; Z86.73 Personal history of transient ischemic attack (TIA), and cerebral infarction without residual deficits; Z68.23 Body mass index [BMI] 23.0-23.9, adult
CPT/HCPCS: 36415; 71045; 74176; 80048; 80053; 81001; 82272; 84443; 85025; 85610; 85730; 86885; 86900; 86901; 87070; 87077; 87088; 87186; 92616; 93005; 96361; 96374; 96375; 99152; 99153; 99285; A4620; C9113; G0378; J2250; J3010; J7030

== ENCOUNTER 2019-01-18 04:22 | Inpatient (IN) | payer MEDICARE, MEDICAID ==
[~2019-01-18] VITALS: Ht 162.6 cm; Wt 55.5 kg
[2019-01-18] VITALS (14 sets, daily range): BP systolic 88–110; BP diastolic 43–62
[~2019-01-18 04:22] MED LIST changes: +ACET-2119 PO; -BISA-155 PO; -CALC-1197 PO; -CLON-527 PO; -DIVA500T2 PO; -DOCU-148 PO; -DULR RC; +FERR325T28 PO; -LORA-269 PO; -LORA2VIA30 IM; -METO-384 PO; +METO1TAB25 PO; +METO25TA6 PO; -OLAN5TAB3 PO; -OMEP-50 PO; +PANT-47 PO; -PYRI50TA10 PO; +PYRI50TA13 PO; +VALP250C44
[2019-01-18] MEDS ORDERED: levoFLOXACIN-Levaquin 500mg/D5 100 ML IV ONE (04:50)
[2019-01-18] MEDS ORDERED: normal saline 1000ML IV soln IVB ONE (05:00)
[2019-01-18 05:01] LABS: ABG BASE EXCESS 2.2 mmol/L (-2.0-3.0); ABG HCO3 28.3 mmol/L (22.0-26.0); ABG OXYGEN SATURATION 94.2 % (95-98); ABG PCO2 (T) 50.3 mmHg (32.0-45.0); ABG PH (T) 7.365 (7.350-7.450); ABG PO2 (T) 80.3 mmHg (83-108); ALLEN'S TEST Positive; FCOHb 0.7 % (0.5-1.5); FLOW 15 L/min; FMetHb 0.3 % (0.3-1.12); FO2Hb 93.3 % (94-100); PATIENT TEMPERATURE 36.5; TOTAL HEMOGLOBIN 9.3 G/dl (12.0-16.0)
[2019-01-18 05:09] LABS: CLARITY,URINE SLIGHTLY CLOUDY (Clear); COLOR,URINE YELLOW (Yellow); GLUCOSE, URINE NEGATIVE (Neg); KETONES,URINE NEGATIVE (Neg); LEUKOCYTE ESTERASE ,URINE NEGATIVE (Neg); NITRITES, URINE NEGATIVE (Neg); OCCULT BLOOD,URINE MODERATE (Neg); PH,URINE 5.5 (4.8-8.0); PROTEIN,URINE NEGATIVE (Neg)
[2019-01-18 05:14] LABS: UA COLLECTION TYPE FOLEY CATH
[2019-01-18 05:15] LABS: BACTERIA,URINE 1+ /HPF (Neg); RBC,URINE 0-2 /HPF (0-2); SQUAMOUS EPITHELIAL CELL,UR FEW /LPF (FEW); WBC,URINE 0-4 /HPF (0-4)
[2019-01-18 05:15] LABS: BASOPHILS % (AUTO) 0.3 % (0-1); EOSINOPHILS % (AUTO) 0.6 % (0-6); HEMATOCRIT 26.4 % (35.0-45.0); HEMOGLOBIN 9.1 g/dl (12.0-16.0); LYMPHOCYTES # (AUTO) 0.5 X10'3 (1.1-4.8); LYMPHOCYTES % (AUTO) 17.1 % (21-51); MEAN CORPUSCULAR HEMOGLOBIN 34.6 PG (27.0-31.0); MEAN CORPUSCULAR HGB CONC 34.6 g/dL (33.0-36.5); MEAN PLATELET VOLUME 8.6 FL (7.4-10.4); MONOCYTES # (AUTO) 0.2 X10'3 (0-0.9); MONOCYTES % (AUTO) 6.3 % (2-12); NEUTROPHILS # (AUTO) 2.3 X10'3 (1.8-7.7); NEUTROPHILS % (AUTO) 75.7 % (42-75); PLATELET COUNT 145 X10'3 (140-440); RED BLOOD COUNT 2.64 X10'6 (4.20-5.60); RED CELL DISTRIBUTION WIDTH 15.2 % (11.5-14.5); WHITE BLOOD COUNT 3.1 X10'3 (4.5-11.0)
[2019-01-18 05:35] LABS: ALANINE AMINOTRANSFERASE 47 U/L (12-78); ALBUMIN 1.9 G/DL (3.4-5.0); ALBUMIN/GLOBULIN RATIO 0.5 (1.1-1.5); ALKALINE PHOSPHATASE 62 IU/L (46-116); ANION GAP 5 (8-16); ASPARTATE AMINO TRANSFERASE 204 U/L (10-37); BILIRUBIN,TOTAL 0.5 MG/DL (0.1-1.0); BLOOD UREA NITROGEN 35 MG/DL (7-18); CALCIUM 8.1 MG/DL (8.5-10.1); CHLORIDE 106 MMOL/L (99-107); CREATININE 1.03 MG/DL (0.40-0.90); GLUCOSE 69 MG/DL (70-104); MAGNESIUM 1.7 MG/DL (1.5-2.4); SODIUM 144 MMOL/L (135-145); TOTAL CARBON DIOXIDE 33.5 MMOL/L (24-32); TOTAL PROTEIN 5.8 G/DL (6.4-8.2); eGFR 53 ML/MIN
[2019-01-18] MEDS ORDERED: vancomycin/NS 1 GM ADD-VANTAGE 250 ML IV ONE (05:40)
[2019-01-18 05:44] LABS: POTASSIUM 2.5 MMOL/L (3.5-5.1)
[2019-01-18 05:52] LABS: PARTIAL THROMBOPLASTIN TIME 35 SECONDS (22-32)
[2019-01-18] MEDS: potassium 10mEq/100ml NS w/LIDOcaine (10mg/bag) IV SCH ×2 (06:05→07:15)
[2019-01-18 06:15] LABS: PLATELET ESTIMATE NORMAL; TOTAL CELLS COUNTED 100; TOXIC GRANULATION 1+
[2019-01-18] MEDS ORDERED: NORepinephrine 8mg/ 250ml NS 250 ML IV SCH (06:15)
[2019-01-18] MEDS ORDERED: acetaminophen 325mg tablet PO PRN ×2 (06:45)
[2019-01-18] MEDS ORDERED: morphine 4 MG/ML inj SYRINge IV PRN (06:45)
[2019-01-18] MEDS ORDERED: ondansetron/PF 4mg/2ml inj IV PRN (06:45)
[2019-01-18] MEDS ORDERED: potassium Cl 20 mEq SR tablet PO PRN ×4 (06:45→11:30)
[2019-01-18] MEDS ORDERED: magnesium hydroxide 30ml (MOM) UD suspension PO PRN (06:45)
[2019-01-18] MEDS: K, MAG and/or Phos replacement - Verify level? MC SCH ×2 (06:45→08:00)
[2019-01-18] MEDS ORDERED: piperacillin/tazo 3.375gm/50ml 50 ML IV SCH (08:00)
[2019-01-18] MEDS ORDERED: aztreonam inj. 1,000 MG in normal saline 100ml IV soln 100 ML IV SCH (09:01)
[2019-01-18] MEDS ORDERED: AZITHROMYCIN 500 MG in NS 250ml IV.SOLN IV SCH (09:06)
--- NOTE | 2019-01-18 09:55 | NUR ---
Pt arrived from ED
[2019-01-18 10:25] LABS: MAGNESIUM 1.5 MG/DL (1.5-2.4)
[2019-01-18] MEDS: metroNIDAZOLE-Flagyl 500mg/NS 100ml IVPB IV SCH ×2 (11:25→17:20)
[2019-01-18] MEDS ORDERED: magnesium 2GM in 50ml NS 50 ML IV ONE (11:30)
[2019-01-18] MEDS ORDERED: potassium Cl 40MEQ/250ML bag 250 ML IV PRN (11:30)
[2019-01-18] MEDS ORDERED: magnesium 2GM in 50ml NS 50 ML IV PRN (11:30)
[2019-01-18] MEDS ORDERED: FURO-149 PO (11:50)
[2019-01-18] MEDS ORDERED: HYDR-3686 PO (11:51)
[2019-01-18] MEDS ORDERED: VALP250C44 PO ×2 (12:00→12:01)
[2019-01-18] MEDS: potassium Cl 40MEQ/250ML bag 250 ML IV PRN ×2 (13:38→16:00)
[2019-01-18] MEDS: normal saline 1000ml 1,000 ML IV SCH ×2 (13:39→16:01)
[2019-01-18] MEDS ORDERED: etomidate 2mg/ml inj. ONE (14:00)
[2019-01-18] MEDS ORDERED: sod chloride 0.9% 10ml flush syringe IV ONE ×2 (14:00)
[2019-01-18] MEDS ORDERED: rocuronium 10mg/ml inj IV ONE (14:00)
[2019-01-18] MEDS ORDERED: normal saline 500ml IV soln 1,000 ML IV ONE (14:25)
[2019-01-18] MEDS ORDERED: cefepime 2g/NS 100ml ADVANTAGE 100 ML IV SCH (16:00)
[2019-01-18] MEDS: aztreonam inj. 1,000 MG in normal saline 100ml IV soln 100 ML IV SCH (16:12)
[2019-01-18 17:11] LABS: ABG BASE EXCESS 2.5 mmol/L (-2.0-3.0); ABG HCO3 28.8 mmol/L (22.0-26.0); ABG OXYGEN SATURATION 88.6 % (95-98); ABG PCO2 (T) 52.7 mmHg (32.0-45.0); ABG PH (T) 7.356 (7.350-7.450); ABG PO2 (T) 57.5 mmHg (83-108); ALLEN'S TEST Positive; FLOW 15 L/min; FO2Hb 88.6 % (94-100); TOTAL HEMOGLOBIN 11.4 G/dl (12.0-16.0)
--- NOTE | 2019-01-18 18:31 | NUR ---
Problems reprioritized. Patient report given, questions answered & plan of care reviewed with Kareem RN.
[2019-01-18] MEDS ORDERED: dextrose 50%-water 50ml dispensing syringe IV ONE (18:47)
--- NOTE | 2019-01-18 18:50 | NUR ---
RN Note -MD Communication Called Brad Pham to notify him that pt's blood sugar was 44. Treated with D50 and it came up to 98. Pt is eating dinner now.
[2019-01-19] VITALS (21 sets, daily range): BP systolic 90–144; BP diastolic 52–69
[2019-01-19 03:30] LABS: BASOPHILS % (AUTO) 0.1 % (0-1); EOSINOPHILS % (AUTO) 0.1 % (0-6); HEMATOCRIT 29.9 % (35.0-45.0); HEMOGLOBIN 10.4 g/dl (12.0-16.0); LYMPHOCYTES # (AUTO) 0.4 X10'3 (1.1-4.8); LYMPHOCYTES % (AUTO) 5.1 % (21-51); MEAN CORPUSCULAR HEMOGLOBIN 34.8 PG (27.0-31.0); MEAN CORPUSCULAR HGB CONC 34.6 g/dL (33.0-36.5); MEAN CORPUSCULAR VOLUME 100.8 FL (78-98); MEAN PLATELET VOLUME 8.9 FL (7.4-10.4); MONOCYTES # (AUTO) 0.2 X10'3 (0-0.9); MONOCYTES % (AUTO) 2.5 % (2-12); NEUTROPHILS # (AUTO) 6.7 X10'3 (1.8-7.7); NEUTROPHILS % (AUTO) 92.2 % (42-75); PLATELET COUNT 170 X10'3 (140-440); RED BLOOD COUNT 2.97 X10'6 (4.20-5.60); RED CELL DISTRIBUTION WIDTH 15.8 % (11.5-14.5); WHITE BLOOD COUNT 7.3 X10'3 (4.5-11.0)
[2019-01-19 03:48] LABS: PARTIAL THROMBOPLASTIN TIME 38 SECONDS (22-32)
[2019-01-19] MEDS ORDERED: levoFLOXACIN-Levaquin 750MG/D5 150 ML IV SCH (05:00)
[2019-01-19] MEDS ORDERED: vancomycin/NS 1 GM ADD-VANTAGE 250 ML IV SCH (05:00)
[2019-01-19 05:07] LABS: PLATELET ESTIMATE NORMAL; TOTAL CELLS COUNTED 100
[2019-01-19 05:08] LABS: TOXIC GRANULATION 1+
[2019-01-19 05:28] LABS: ALANINE AMINOTRANSFERASE 47 U/L (12-78); ALBUMIN 1.5 G/DL (3.4-5.0); ALBUMIN/GLOBULIN RATIO 0.4 (1.1-1.5); ALKALINE PHOSPHATASE 76 IU/L (46-116); ANION GAP 3 (8-16); ASPARTATE AMINO TRANSFERASE 117 U/L (10-37); BILIRUBIN,TOTAL 0.3 MG/DL (0.1-1.0); BLOOD UREA NITROGEN 24 MG/DL (7-18); BUN/CREATININE RATIO 34.8 (6.6-38.0); CALCIUM 9.1 MG/DL (8.5-10.1); CHLORIDE 116 MMOL/L (99-107); CREATININE 0.69 MG/DL (0.40-0.90); GLUCOSE 145 MG/DL (70-104); PHOSPHORUS 1.9 MG/DL (2.3-4.5); POTASSIUM 3.7 MMOL/L (3.5-5.1); SODIUM 147 MMOL/L (135-145); TOTAL PROTEIN 5.5 G/DL (6.4-8.2); eGFR 84 ML/MIN
[2019-01-19] MEDS: aztreonam inj. 1,000 MG in normal saline 100ml IV soln 100 ML IV SCH ×3 (07:29)
[2019-01-19] MEDS: K, MAG and/or Phos replacement - Verify level? MC SCH (08:00)
[2019-01-19] MEDS: K and/or MAG REPLACEMENT MC SCH (08:00)
[2019-01-19] MEDS: metroNIDAZOLE-Flagyl 500mg/NS 100ml IVPB IV SCH ×2 (09:05)
[2019-01-19] MEDS: normal saline 1000ml 1,000 ML IV SCH (09:25)
[2019-01-19] MEDS ORDERED: acetaminophen 325mg tablet PO PRN (09:30)
[2019-01-19] MEDS: quetiapine 100mg tablet PO SCH ×2 (10:58→21:10)
[2019-01-19] MEDS: metoprolol tartrate 25mg tablet PO SCH ×2 (10:59→21:11)
[2019-01-19] MEDS: pantoprazole 40mg Tablet.DR PO SCH (10:59)
[2019-01-19] MEDS: aripiprazole 5mg tablet PO SCH (10:59)
[2019-01-19] MEDS: valproic acid 250mg capsule PO SCH ×2 (10:59→21:10)
[2019-01-19] MEDS: furosemide 40mg tablet PO SCH (11:00)
[2019-01-19] MEDS: ferrous sulfate 325mg tablet PO SCH (11:00)
[2019-01-19] MEDS: lactobacillus rhamnosus 10,000 MMU CELLS/CAPSULE PO SCH ×2 (11:00→21:10)
[2019-01-19] MEDS: levoTHYROXINE 25mcg tablet PO SCH (11:00)
[2019-01-19] MEDS: fluvoxamine 25 MG tablet PO SCH ×2 (11:00→21:10)
[2019-01-19] MEDS ORDERED: levoFLOXACIN 750MG TABLET PO SCH (11:00)
[2019-01-19] MEDS: enoxaparin 40mg/0.4ml syringe SQ SCH (11:11)
--- NOTE | 2019-01-19 13:59 | NUR ---
Patient admitted from [place] with aspiration pneumonia and sepsis. Confused, history of schizophrenia. Pt has BSS, REGISTERED VASCULAR TECHNOLOGIST (RVT) reports patient swallows well with food and liquids, recommends to continue regular diet. Eating with a fair appetite, 75% PO intake regular diet. Will monitor PO intake and assess any need for ONS. Not appropriate for education today. Recommend: 1. continue regular diet 2. monitor need for ONS 3. Wt per rx Addendum: 01/19/19 at [address] Amended: Links added.
[2019-01-19] MEDS: vancomycin/NS 1 GM ADD-VANTAGE 250 ML IV SCH (17:16)
--- NOTE | 2019-01-19 18:25 | NUR ---
Patient in room ICU 2044. I have received report from Yakov STAPLES and had the opportunity to ask questions and will assume patient care upon transfer to CICU room 2011.
[2019-01-19] MEDS ORDERED: metoprolol tartrate 25mg tablet PO SCH (20:00)
[2019-01-19] MEDS ORDERED: fluvoxamine 25 MG tablet PO SCH (20:00)
[2019-01-19] MEDS ORDERED: quetiapine 100mg tablet PO SCH (20:00)
[2019-01-19] MEDS: hydrOXYzine 25 MG tablet PO SCH (21:10)
[2019-01-20] VITALS (24 sets, daily range): BP systolic 84–135; BP diastolic 43–74
[2019-01-20] MEDS ORDERED: levoFLOXACIN-Levaquin 750MG/D5 150 ML IV SCH (05:00)
[2019-01-20] MEDS: vancomycin/NS 1 GM ADD-VANTAGE 250 ML IV SCH ×2 (05:22→16:51)
--- NOTE | 2019-01-20 06:30 | NUR ---
Patient in room CICU 2011. I have received report from JHOAN Clarke and had the opportunity to ask questions and assume patient care.
--- NOTE | 2019-01-20 06:36 | NUR ---
Problems reprioritized. Patient report given, questions answered & plan of care reviewed with Arianna STAPLES.
[2019-01-20 06:47] LABS: BASOPHILS % (AUTO) 0.2 % (0-1); EOSINOPHILS # (AUTO) 0.1 X10'3 (0-0.9); EOSINOPHILS % (AUTO) 1.3 % (0-6); HEMATOCRIT 31.7 % (35.0-45.0); HEMOGLOBIN 10.6 g/dl (12.0-16.0); LYMPHOCYTES # (AUTO) 1.1 X10'3 (1.1-4.8); LYMPHOCYTES % (AUTO) 12.6 % (21-51); MEAN CORPUSCULAR HEMOGLOBIN 34.4 PG (27.0-31.0); MEAN CORPUSCULAR HGB CONC 33.5 g/dL (33.0-36.5); MEAN CORPUSCULAR VOLUME 102.8 FL (78-98); MEAN PLATELET VOLUME 8.7 FL (7.4-10.4); MONOCYTES # (AUTO) 0.4 X10'3 (0-0.9); NEUTROPHILS # (AUTO) 6.8 X10'3 (1.8-7.7); NEUTROPHILS % (AUTO) 80.9 % (42-75); PLATELET COUNT 142 X10'3 (140-440); RED BLOOD COUNT 3.08 X10'6 (4.20-5.60); WHITE BLOOD COUNT 8.4 X10'3 (4.5-11.0)
[2019-01-20 06:55] LABS: PARTIAL THROMBOPLASTIN TIME 32 SECONDS (22-32)
[2019-01-20 06:58] LABS: ALBUMIN 1.3 G/DL (3.4-5.0); ANION GAP 6 (8-16); BILIRUBIN,TOTAL 0.3 MG/DL (0.1-1.0); BLOOD UREA NITROGEN 13 MG/DL (7-18); BUN/CREATININE RATIO 22.8 (6.6-38.0); CALCIUM 9.2 MG/DL (8.5-10.1); CHLORIDE 109 MMOL/L (99-107); CREATININE 0.57 MG/DL (0.40-0.90); GLUCOSE 63 MG/DL (70-104); MAGNESIUM 1.3 MG/DL (1.5-2.4); PHOSPHORUS 2.1 MG/DL (2.3-4.5); POTASSIUM 3.5 MMOL/L (3.5-5.1); SODIUM 141 MMOL/L (135-145); TOTAL CARBON DIOXIDE 26.4 MMOL/L (24-32); TOTAL PROTEIN 5.2 G/DL (6.4-8.2); eGFR > 90 ML/MIN
[2019-01-20 06:59] LABS: ALANINE AMINOTRANSFERASE 35 U/L (12-78); ALBUMIN/GLOBULIN RATIO 0.3 (1.1-1.5); ALKALINE PHOSPHATASE 75 IU/L (46-116); ASPARTATE AMINO TRANSFERASE 60 U/L (10-37)
[2019-01-20 08:00] LABS: PLATELET ESTIMATE NORMAL; TOTAL CELLS COUNTED 100; TOXIC GRANULATION 1+
[2019-01-20] MEDS: K and/or MAG REPLACEMENT MC SCH (08:00)
[2019-01-20] MEDS ORDERED: aripiprazole 5mg tablet PO SCH (08:00)
[2019-01-20] MEDS: metoprolol tartrate 25mg tablet PO SCH ×2 (08:00→20:06)
[2019-01-20] MEDS ORDERED: ferrous sulfate 325mg tablet PO SCH (08:00)
[2019-01-20] MEDS ORDERED: pantoprazole 40mg Tablet.DR PO SCH (08:00)
[2019-01-20] MEDS ORDERED: valproic acid 250mg capsule PO SCH (08:00)
[2019-01-20] MEDS ORDERED: levoTHYROXINE 25mcg tablet PO SCH (08:00)
[2019-01-20] MEDS ORDERED: furosemide 40mg tablet PO SCH (08:00)
[2019-01-20] MEDS: enoxaparin 40mg/0.4ml syringe SQ SCH (09:17)
[2019-01-20] MEDS: aripiprazole 5mg tablet PO SCH (09:17)
[2019-01-20] MEDS: valproic acid 250mg capsule PO SCH ×2 (09:18→20:05)
[2019-01-20] MEDS: lactobacillus rhamnosus 10,000 MMU CELLS/CAPSULE PO SCH ×2 (09:19→20:06)
[2019-01-20] MEDS: magnesium Cl slow-release 64mg tablet PO PRN (09:19)
[2019-01-20] MEDS: quetiapine 100mg tablet PO SCH ×2 (09:19→20:06)
[2019-01-20] MEDS: pantoprazole 40mg Tablet.DR PO SCH (09:19)
[2019-01-20] MEDS: fluvoxamine 25 MG tablet PO SCH ×2 (09:20→20:06)
[2019-01-20] MEDS: ferrous sulfate 325mg tablet PO SCH (09:20)
[2019-01-20] MEDS: furosemide 40mg tablet PO SCH (09:21)
[2019-01-20] MEDS: levoTHYROXINE 25mcg tablet PO SCH (09:24)
[2019-01-20] MEDS ORDERED: furosemide 40mg/4ml inj IV ONE (09:50)
[2019-01-20 10:15] LABS: ABG BASE EXCESS 4.4 mmol/L (-2.0-3.0); ABG HCO3 30.9 mmol/L (22.0-26.0); ABG OXYGEN SATURATION 88.6 % (95-98); ABG PCO2 (T) 55.8 mmHg (32.0-45.0); ABG PH (T) 7.362 (7.350-7.450); ABG PO2 (T) 53.9 mmHg (83-108); FCOHb 0.2 % (0.5-1.5); FLOW 8 L/min; FO2Hb 88.4 % (94-100); PATIENT TEMPERATURE 37.1; TOTAL HEMOGLOBIN 11.7 G/dl (12.0-16.0)
--- NOTE | 2019-01-20 10:30 | NUR ---
Dr. Moreno arrived on unit and assessed pt, updated on pt condition, ABG order recevied and pt placed on bipap by RT.
[2019-01-20] MEDS ORDERED: midazolam 2 mg/2 ml injection IV ONE (10:40)
[2019-01-20] MEDS ORDERED: midazolam 100mg in NS 100ml 100 ML IV PRN (10:40)
[2019-01-20] MEDS: FENTANYL-0.9 % NACL/PF 100 ML IV PRN ×2 (10:53→16:50)
--- NOTE | 2019-01-20 11:30 | NUR ---
RN spoke with Benny Braden who is the conservator for the patient, consent obtained for intubation, PICC line and CVL insertion.
[2019-01-20 14:01] LABS: ABG BASE EXCESS 7.2 mmol/L (-2.0-3.0); ABG HCO3 33.4 mmol/L (22.0-26.0); ABG OXYGEN SATURATION 92.8 % (95-98); ABG PCO2 (T) 55.6 mmHg (32.0-45.0); ABG PH (T) 7.398 (7.350-7.450); ABG PO2 (T) 65.2 mmHg (83-108); FCOHb 0.3 % (0.5-1.5); FMetHb 0.3 % (0.3-1.12); FO2Hb 92.2 % (94-100); MINUTE VOLUME 19 L/min; PATIENT TEMPERATURE 37.4; RESPIRATORY RATE 15 b/min; RESPIRATORY RATE (OBSERVED) 20 b/min; TIDAL VOLUME 980 mL
[2019-01-20] MEDS: levoFLOXACIN-Levaquin 750MG/D5 150 ML IV SCH (14:13)
--- NOTE | 2019-01-20 14:35 | NUR ---
Tube feeding consult, patient declined in condition today possibly pending intubation, pt is needing nutrition support to meet needs. Patient admitted from [place] with aspiration pneumonia and sepsis. Confused, history of schizophrenia. Pt has BSS, SUPERVISOR STEEL DIVISION reports patient swallows well with food and liquids, however d/t the decline in condition today RN reports patient was choking on thin liquids. TF recs below. Recommend: 1. When corpak is confirmed, recommend starting TF at 20 ml/hr and advance by 20 ml Q8H to goal rate of 65 ml/hr to provide 1560 ml, 1872 gilmar, 117 g protein, and 1265 ml water. 2. 100 ml water flush Q4H 3. Prealbumin Q saturday and Addendum: 01/20/19 at [address] Amended: Links added.
--- NOTE | 2019-01-20 16:00 | NUR ---
RN spoke with Dr. Moreno, updated on pt condition, ABG result on bipap and will hold off on intubation for now, order receive to place corpak and start pt on TF.
[2019-01-20] MEDS ORDERED: VANCOMYCIN LEVEL IV ONE (16:30)
--- NOTE | 2019-01-20 18:27 | NUR ---
Problems reprioritized. Patient report given, questions answered & plan of care reviewed with JHOAN Sy.
--- NOTE | 2019-01-20 18:30 | NUR ---
Patient in room CICU 2011. I have received report from JHOAN Keller and had the opportunity to ask questions and assume patient care.
[2019-01-20] MEDS: hydrOXYzine 25 MG tablet PO SCH (20:06)
[2019-01-20] MEDS ORDERED: etomidate 2mg/ml inj. ONE (21:30)
[2019-01-21] VITALS (24 sets, daily range): BP systolic 89–128; BP diastolic 46–61
[2019-01-21 01:45] LABS: BASOPHILS % (AUTO) 0.3 % (0-1); EOSINOPHILS # (AUTO) 0.1 X10'3 (0-0.9); EOSINOPHILS % (AUTO) 1.2 % (0-6); HEMATOCRIT 27.9 % (35.0-45.0); HEMOGLOBIN 9.5 g/dl (12.0-16.0); LYMPHOCYTES # (AUTO) 0.9 X10'3 (1.1-4.8); LYMPHOCYTES % (AUTO) 11.7 % (21-51); MEAN CORPUSCULAR HEMOGLOBIN 34.3 PG (27.0-31.0); MEAN CORPUSCULAR HGB CONC 34.2 g/dL (33.0-36.5); MEAN CORPUSCULAR VOLUME 100.4 FL (78-98); MEAN PLATELET VOLUME 8.8 FL (7.4-10.4); MONOCYTES # (AUTO) 0.5 X10'3 (0-0.9); MONOCYTES % (AUTO) 5.8 % (2-12); NEUTROPHILS # (AUTO) 6.4 X10'3 (1.8-7.7); PLATELET COUNT 152 X10'3 (140-440); RED BLOOD COUNT 2.78 X10'6 (4.20-5.60); RED CELL DISTRIBUTION WIDTH 15.4 % (11.5-14.5); WHITE BLOOD COUNT 7.9 X10'3 (4.5-11.0)
[2019-01-21 01:59] LABS: ALANINE AMINOTRANSFERASE 33 U/L (12-78); ALBUMIN 1.2 G/DL (3.4-5.0); ALBUMIN/GLOBULIN RATIO 0.3 (1.1-1.5); ALKALINE PHOSPHATASE 74 IU/L (46-116); ANION GAP -1 (8-16); ASPARTATE AMINO TRANSFERASE 37 U/L (10-37); BILIRUBIN,TOTAL 0.2 MG/DL (0.1-1.0); BLOOD UREA NITROGEN 11 MG/DL (7-18); BUN/CREATININE RATIO 24.4 (6.6-38.0); CALCIUM 8.7 MG/DL (8.5-10.1); CHLORIDE 108 MMOL/L (99-107); CREATININE 0.45 MG/DL (0.40-0.90); GLUCOSE 88 MG/DL (70-104); MAGNESIUM 1.1 MG/DL (1.5-2.4); PHOSPHORUS 2.4 MG/DL (2.3-4.5); SODIUM 143 MMOL/L (135-145); TOTAL CARBON DIOXIDE 35.9 MMOL/L (24-32); TOTAL PROTEIN 4.9 G/DL (6.4-8.2); eGFR > 90 ML/MIN
[2019-01-21 02:01] LABS: PARTIAL THROMBOPLASTIN TIME 36 SECONDS (22-32)
[2019-01-21] MEDS ORDERED: potassium Cl 40MEQ/250ML bag 250 ML IV PRN (02:30)
[2019-01-21 02:32] LABS: PLATELET ESTIMATE NORMAL; TOTAL CELLS COUNTED 100; TOXIC GRANULATION 1+
[2019-01-21] MEDS: magnesium 4gm in 100ml NS 100 ML IV PRN (02:48)
[2019-01-21] MEDS: potassium Cl 40MEQ/250ML bag 250 ML IV PRN ×2 (04:05→07:37)
[2019-01-21 04:25] LABS: ABG BASE EXCESS 8.9 mmol/L (-2.0-3.0); ABG HCO3 34.9 mmol/L (22.0-26.0); ABG OXYGEN SATURATION 93.3 % (95-98); ABG PCO2 (T) 56.3 mmHg (32.0-45.0); ABG PH (T) 7.411 (7.350-7.450); ABG PO2 (T) 68.7 mmHg (83-108); ALLEN'S TEST Positive; FCOHb 0.3 % (0.5-1.5); FMetHb 0.3 % (0.3-1.12); FO2Hb 92.7 % (94-100); MINUTE VOLUME 7 L/min; PATIENT TEMPERATURE 37.2; PEEP 5 cm H2O; RESPIRATORY RATE 15 b/min; RESPIRATORY RATE (OBSERVED) 17 b/min; TIDAL VOLUME 406 mL; TOTAL HEMOGLOBIN 10.4 G/dl (12.0-16.0)
[2019-01-21] MEDS ORDERED: VANCOMYCIN LEVEL IV NR (04:30)
[2019-01-21] MEDS: vancomycin/NS 1 GM ADD-VANTAGE 250 ML IV SCH ×2 (05:04→17:30)
--- NOTE | 2019-01-21 06:30 | NUR ---
Problems reprioritized. Patient report given, questions answered & plan of care reviewed with JHOAN Keller.
--- NOTE | 2019-01-21 06:30 | NUR ---
Patient in room CICU 2011. I have received report from JHOAN Sy and had the opportunity to ask questions and assume patient care.
[2019-01-21] MEDS: levoFLOXACIN-Levaquin 750MG/D5 150 ML IV SCH (07:37)
[2019-01-21] MEDS: ferrous sulfate 325mg tablet PO SCH (07:38)
[2019-01-21] MEDS: lactobacillus rhamnosus 10,000 MMU CELLS/CAPSULE PO SCH ×2 (07:38→20:25)
[2019-01-21] MEDS: pantoprazole 40mg Tablet.DR PO SCH (07:38)
[2019-01-21] MEDS: aripiprazole 5mg tablet PO SCH (07:38)
[2019-01-21] MEDS: enoxaparin 40mg/0.4ml syringe SQ SCH (07:38)
[2019-01-21] MEDS: levoTHYROXINE 25mcg tablet PO SCH (07:38)
[2019-01-21] MEDS: furosemide 40mg tablet PO SCH (07:39)
[2019-01-21] MEDS: fluvoxamine 25 MG tablet PO SCH ×2 (07:39→20:26)
[2019-01-21] MEDS: quetiapine 100mg tablet PO SCH ×2 (07:41→20:26)
[2019-01-21] MEDS: metoprolol tartrate 25mg tablet PO SCH ×2 (08:00→20:33)
[2019-01-21] MEDS: K and/or MAG REPLACEMENT MC SCH (08:00)
[2019-01-21] MEDS: valproic acid 250mg capsule PO SCH (08:11)
[2019-01-21] MEDS ORDERED: dextrose 50%-water 50ml dispensing syringe IV PRN (08:15)
[2019-01-21] MEDS ORDERED: dextrose ORAL solution 15 GM/59 ML bottle PO PRN ×2 (08:15)
[2019-01-21] MEDS ORDERED: MESSAGE TO PHARMACY PO ONE (08:15)
[2019-01-21] MEDS ORDERED: insulin regular, human vial - multi-dose SQ SCH (08:15)
[2019-01-21] MEDS ORDERED: glucagon, human recombinant 1mg kit SUBCUT PRN (08:15)
[2019-01-21] MEDS: dextrose 50%-water 50ml dispensing syringe IV PRN (08:23)
[2019-01-21] MEDS ORDERED: dextrose 50%-water 50ml dispensing syringe IV ONE (08:23)
[2019-01-21 09:31] LABS: HEMOGLOBIN A1C 5.4 % (4.5-6.2)
[2019-01-21] MEDS: mineral oil/petrolatum ophthal oint EACHEYE SCH ×2 (10:44→19:56)
--- NOTE | 2019-01-21 11:48 | NUR ---
Follow up: corpak placement not successful as it coils in stomach, possibly pending placement by IR. OTHER SPORTS OFFICIAL recommends NPO for patient today d/t decline in condition. She is on BiPap, not intubated. Pt is needing nutrition support to meet needs. Patient admitted from [place] with aspiration pneumonia and sepsis. Confused, history of schizophrenia. TF recs below. Glucose dropped to 44, was given D50 to correct. Recommend: 1. When corpak is confirmed, recommend starting TF at 20 ml/hr and advance by 20 ml Q8H to goal rate of 65 ml/hr to provide 1560 ml, 1872 gilmar, 117 g protein, and 1265 ml water. 2. 100 ml water flush Q4H 3. Prealbumin Q saturday and 4. Advance diet as medically indicated per OTHER SPORTS OFFICIAL recommendations Addendum: 01/21/19 at [address] Amended: Links added.
[2019-01-21 12:30] LABS: MAGNESIUM 1.7 MG/DL (1.5-2.4); POTASSIUM 3.8 MMOL/L (3.5-5.1)
[2019-01-21] MEDS ORDERED: LORazepam 2 mg/ml vial ONE ×2 (14:54→14:55)
--- NOTE | 2019-01-21 15:11 | NUR ---
IR RN at bedside attempted to reposition corpak, awaiting xray placement confirmation.
--- NOTE | 2019-01-21 17:23 | NUR ---
corpak advanced after multiple KUBs, Dr. Josh silva with corpak placement in stomach, ricardo to start TF.
--- NOTE | 2019-01-21 18:23 | NUR ---
Problems reprioritized. Patient report given, questions answered & plan of care reviewed with JHOAN Morton.
--- NOTE | 2019-01-21 18:35 | NUR ---
Patient in room CICU 2011. I have received report from Arianna STAPLES, and had the opportunity to ask questions and assume patient care.
[2019-01-21] MEDS ORDERED: valproate sod 250mg/5ml UD oral syrup PO SCH (19:28)
--- NOTE | 2019-01-21 19:30 | NUR ---
PT resting in bed with no s/s of distress noted at this time. VSS. PT is receiving High Flow O2 @ 60%. PT tolerating well, O2 sat >93%. PT has corpak to RT nare. TF is running @ 20ml/hr, will advance as ordered and as PT tolerates. Marie draining to gravity. Bed is locked and low. Call light is within reach. Will continue to monitor.
[2019-01-21] MEDS: hydrOXYzine 25 MG tablet PO SCH (20:26)
[2019-01-21] MEDS: insulin glargine (Lantus) pen - multi-dose SQ SCH (20:50)
[2019-01-21] MEDS: valproate sod 250mg/5ml UD oral syrup CORPAK SCH (21:21)
--- NOTE | 2019-01-21 23:00 | NUR ---
PT continues to rest with no s/s of distress noted at this time. VSS. Bed is locked and low. Call light is within reach. Will continue to monitor.
[2019-01-22] VITALS (24 sets, daily range): BP systolic 87–114; BP diastolic 40–60
[2019-01-22] MEDS: morphine 2 MG/ML inj. syringe IV PRN (00:35)
[2019-01-22] MEDS: mineral oil/petrolatum ophthal oint EACHEYE SCH ×4 (02:00→20:00)
--- NOTE | 2019-01-22 02:30 | NUR ---
PT sleeping with no s/s of distress noted at this time. VSS. Bed is locked and low. Call light remains in place and secure. Will continue to monitor.
[2019-01-22 03:17] LABS: BASOPHILS % (AUTO) 0.1 % (0-1); EOSINOPHILS # (AUTO) 0.1 X10'3 (0-0.9); EOSINOPHILS % (AUTO) 0.8 % (0-6); HEMATOCRIT 26.6 % (35.0-45.0); LYMPHOCYTES # (AUTO) 1.2 X10'3 (1.1-4.8); LYMPHOCYTES % (AUTO) 12.8 % (21-51); MEAN CORPUSCULAR HEMOGLOBIN 33.7 PG (27.0-31.0); MEAN CORPUSCULAR HGB CONC 33.7 g/dL (33.0-36.5); MEAN CORPUSCULAR VOLUME 99.9 FL (78-98); MEAN PLATELET VOLUME 8.5 FL (7.4-10.4); MONOCYTES # (AUTO) 1.3 X10'3 (0-0.9); MONOCYTES % (AUTO) 13.7 % (2-12); NEUTROPHILS % (AUTO) 72.6 % (42-75); PLATELET COUNT 130 X10'3 (140-440); RED BLOOD COUNT 2.66 X10'6 (4.20-5.60); RED CELL DISTRIBUTION WIDTH 15.1 % (11.5-14.5); WHITE BLOOD COUNT 9.7 X10'3 (4.5-11.0)
[2019-01-22 03:33] LABS: ALANINE AMINOTRANSFERASE 26 U/L (12-78); ALBUMIN 1.2 G/DL (3.4-5.0); ALBUMIN/GLOBULIN RATIO 0.3 (1.1-1.5); ALKALINE PHOSPHATASE 70 IU/L (46-116); ANION GAP 2 (8-16); ASPARTATE AMINO TRANSFERASE 26 U/L (10-37); BILIRUBIN,TOTAL 0.2 MG/DL (0.1-1.0); BLOOD UREA NITROGEN 11 MG/DL (7-18); BUN/CREATININE RATIO 25.6 (6.6-38.0); CALCIUM 8.6 MG/DL (8.5-10.1); CHLORIDE 110 MMOL/L (99-107); CREATININE 0.43 MG/DL (0.40-0.90); GLUCOSE 106 MG/DL (70-104); MAGNESIUM 1.5 MG/DL (1.5-2.4); PHOSPHORUS 2.5 MG/DL (2.3-4.5); POTASSIUM 3.4 MMOL/L (3.5-5.1); PREALBUMIN 6.5 MG/DL (19-36); SODIUM 147 MMOL/L (135-145); TOTAL CARBON DIOXIDE 34.9 MMOL/L (24-32); TOTAL PROTEIN 4.8 G/DL (6.4-8.2); eGFR > 90 ML/MIN
[2019-01-22 03:37] LABS: PARTIAL THROMBOPLASTIN TIME 37 SECONDS (22-32)
[2019-01-22] MEDS: vancomycin/NS 1 GM ADD-VANTAGE 250 ML IV SCH ×2 (04:55→16:16)
--- NOTE | 2019-01-22 06:33 | NUR ---
Problems reprioritized. Patient report given, questions answered & plan of care reviewed with Laila STAPLES.
[2019-01-22 07:07] LABS: TOTAL CELLS COUNTED 100
[2019-01-22 07:08] LABS: PLATELET ESTIMATE DECREASED
[2019-01-22 07:09] LABS: TOXIC GRANULATION 2+
[2019-01-22 07:12] LABS: ANISOCYTOSIS FEW
[2019-01-22 07:14] LABS: HYPOCHROMASIA 1+
[2019-01-22] MEDS: levoFLOXACIN-Levaquin 750MG/D5 150 ML IV SCH (07:29)
[2019-01-22] MEDS: fluvoxamine 25 MG tablet PO SCH ×2 (07:29→20:27)
[2019-01-22] MEDS: valproate sod 250mg/5ml UD oral syrup CORPAK SCH ×2 (07:29→21:27)
[2019-01-22] MEDS: quetiapine 100mg tablet PO SCH ×2 (07:29→20:26)
[2019-01-22] MEDS: aripiprazole 5mg tablet PO SCH (07:29)
[2019-01-22] MEDS: pantoprazole 40mg Tablet.DR PO SCH (07:30)
[2019-01-22] MEDS: metoprolol tartrate 25mg tablet PO SCH ×2 (07:30→20:00)
[2019-01-22] MEDS: lactobacillus rhamnosus 10,000 MMU CELLS/CAPSULE PO SCH ×2 (07:30→20:26)
[2019-01-22] MEDS: levoTHYROXINE 25mcg tablet PO SCH (07:30)
[2019-01-22] MEDS: enoxaparin 40mg/0.4ml syringe SQ SCH (07:30)
[2019-01-22] MEDS: furosemide 40mg tablet PO SCH (07:30)
[2019-01-22] MEDS: ferrous sulfate 325mg tablet PO SCH (07:30)
--- NOTE | 2019-01-22 11:18 | NUR ---
Corpak placement by IR is successful, placement was confirmed. TF at started and at 40 ml today, goal is 65 ml/hr. Patient is four days with no BM, may need bowel care if continues with no BM. Patient admitted from [place] with aspiration pneumonia and sepsis. Confused, history of schizophrenia. Recommend: 1. continuous TF starting at 20 ml/hr and advance by 20 ml Q8H to goal rate of 65 ml/hr to provide 1560 ml, 1872 gilmar, 117 g protein, and 1265 ml water. 2. 100 ml water flush Q4H 3. Prealbumin Q saturday and 4. Advance diet as medically indicated when patient can pass swallow eval per ENGAGEMENT MGR recommendations Addendum: 01/22/19 at [address] Amended: Links added.
--- NOTE | 2019-01-22 18:27 | NUR ---
Problems reprioritized. Patient report given, questions answered & plan of care reviewed with Praveen STAPLES.
--- NOTE | 2019-01-22 18:30 | NUR ---
Patient in room CICU 2012. I have received report from Laila STAPLES, and had the opportunity to ask questions and assume patient care.
--- NOTE | 2019-01-22 19:25 | NUR ---
PT resting in bed with no s/s of distress noted at this time. VSS. PT is receiving High Flow O2 @ 60%. PT tolerating well, O2 sat >93%. PT has corpak to RT nare. TF is running @ goal rate of 65ml/hr, will advance as ordered and as PT tolerates. Marie draining to gravity. Bed is locked and low. Call light is within reach. Will continue to monitor.
[2019-01-22] MEDS: hydrOXYzine 25 MG tablet PO SCH (20:27)
[2019-01-22] MEDS: insulin glargine (Lantus) pen - multi-dose SQ SCH (21:00)
--- NOTE | 2019-01-22 23:00 | NUR ---
PT sleeping with no s/s of distress noted at this time. VSS. Bed is locked and low. Call light is within reach. Will continue to monitor.
[2019-01-23] VITALS (24 sets, daily range): BP systolic 88–126; BP diastolic 46–71
[2019-01-23] MEDS: mineral oil/petrolatum ophthal oint EACHEYE SCH ×4 (02:00→18:44)
--- NOTE | 2019-01-23 02:00 | NUR ---
PT sleeping with no s/s of distress noted at this time. VSS. Bed is locked and low. Call light is within reach. Will continue to monitor.
[2019-01-23 03:08] LABS: BASOPHILS % (AUTO) 0.1 % (0-1); EOSINOPHILS # (AUTO) 0.1 X10'3 (0-0.9); HEMATOCRIT 25.2 % (35.0-45.0); HEMOGLOBIN 8.6 g/dl (12.0-16.0); LYMPHOCYTES # (AUTO) 1.3 X10'3 (1.1-4.8); LYMPHOCYTES % (AUTO) 11.1 % (21-51); MEAN CORPUSCULAR HEMOGLOBIN 34.2 PG (27.0-31.0); MEAN CORPUSCULAR HGB CONC 34.3 g/dL (33.0-36.5); MEAN CORPUSCULAR VOLUME 99.8 FL (78-98); MONOCYTES # (AUTO) 1.5 X10'3 (0-0.9); NEUTROPHILS # (AUTO) 8.6 X10'3 (1.8-7.7); NEUTROPHILS % (AUTO) 74.8 % (42-75); PLATELET COUNT 132 X10'3 (140-440); RED BLOOD COUNT 2.52 X10'6 (4.20-5.60); RED CELL DISTRIBUTION WIDTH 15.3 % (11.5-14.5); WHITE BLOOD COUNT 11.4 X10'3 (4.5-11.0)
[2019-01-23 03:20] LABS: PARTIAL THROMBOPLASTIN TIME 34 SECONDS (22-32)
[2019-01-23 03:27] LABS: ANION GAP -1 (8-16); BLOOD UREA NITROGEN 16 MG/DL (7-18); CHLORIDE 109 MMOL/L (99-107); CREATININE 0.48 MG/DL (0.40-0.90); GLUCOSE 141 MG/DL (70-104); POTASSIUM 3.5 MMOL/L (3.5-5.1); SODIUM 144 MMOL/L (135-145)
[2019-01-23 03:28] LABS: ALANINE AMINOTRANSFERASE 22 U/L (12-78); ALBUMIN 1.2 G/DL (3.4-5.0); ALBUMIN/GLOBULIN RATIO 0.3 (1.1-1.5); ALKALINE PHOSPHATASE 66 IU/L (46-116); ASPARTATE AMINO TRANSFERASE 20 U/L (10-37); BILIRUBIN,TOTAL 0.2 MG/DL (0.1-1.0); BUN/CREATININE RATIO 33.3 (6.6-38.0); CALCIUM 8.5 MG/DL (8.5-10.1); MAGNESIUM 1.4 MG/DL (1.5-2.4); PHOSPHORUS 2.3 MG/DL (2.3-4.5); TOTAL PROTEIN 4.8 G/DL (6.4-8.2); eGFR > 90 ML/MIN
[2019-01-23] MEDS: magnesium 4gm in 100ml NS 100 ML IV PRN (03:57)
[2019-01-23 04:30] LABS: ANISOCYTOSIS FEW; HYPOCHROMASIA 1+; PLATELET ESTIMATE DECREASED; STOMATOCYTES FEW; TOTAL CELLS COUNTED 100; TOXIC GRANULATION 2+
[2019-01-23] MEDS: vancomycin/NS 1 GM ADD-VANTAGE 250 ML IV SCH (05:18)
--- NOTE | 2019-01-23 06:27 | NUR ---
Patient in room CICU 2012. I have received report from JHOAN Morton and had the opportunity to ask questions and assume patient care.
--- NOTE | 2019-01-23 06:45 | NUR ---
Problems reprioritized. Patient report given, questions answered & plan of care reviewed with Maryuri STAPLES.
[2019-01-23] MEDS: lactobacillus rhamnosus 10,000 MMU CELLS/CAPSULE PO SCH ×2 (07:37→20:26)
[2019-01-23] MEDS: levoFLOXACIN-Levaquin 750MG/D5 150 ML IV SCH (07:37)
[2019-01-23] MEDS: aripiprazole 5mg tablet PO SCH (07:37)
[2019-01-23] MEDS: fluvoxamine 25 MG tablet PO SCH ×2 (07:37→20:26)
[2019-01-23] MEDS: metoprolol tartrate 25mg tablet PO SCH ×2 (07:38→20:26)
[2019-01-23] MEDS: ferrous sulfate 325mg tablet PO SCH (07:38)
[2019-01-23] MEDS: furosemide 40mg tablet PO SCH (07:38)
[2019-01-23] MEDS: quetiapine 100mg tablet PO SCH ×2 (07:38→20:26)
[2019-01-23] MEDS: levoTHYROXINE 25mcg tablet PO SCH (07:38)
[2019-01-23] MEDS: valproate sod 250mg/5ml UD oral syrup CORPAK SCH ×2 (07:38→20:25)
[2019-01-23] MEDS: pantoprazole 40mg Tablet.DR PO SCH (07:38)
[2019-01-23] MEDS: enoxaparin 40mg/0.4ml syringe SQ SCH (08:00)
--- NOTE | 2019-01-23 12:12 | NUR ---
Reassessment: BSS done by INFORMATICS SCIENTIST yesterday, recommends pureed and nectar thick liquids. Recommend to continue corpak tube feeding until PO intake >65%. Patient is tolerating TF at goal rate. PO 0-25% prior to corpak placement. LBM TUBE MACHINE OPERATOR HELPER at least 5 days ago. Consider bowel care. Will continue to follow. Recommend: 1. continuous TF starting at 65 ml/hr to provide 1560 ml, 1872 gilmar, 117 g protein, and 1265 ml water. 2. 100 ml water flush Q4H 3. Prealbumin Q saturday and 4. Continue pureed diet with nectar thick liquids per INFORMATICS SCIENTIST recs Addendum: 01/23/19 at [address] Amended: Links added.
--- NOTE | 2019-01-23 12:56 | NUR ---
Pt ate entire lunch without difficulty. TF stopped and corpak removed per MD orders
[2019-01-23] MEDS ORDERED: LIDOcaine Viscous 15ml cup MM PRN (13:40)
--- NOTE | 2019-01-23 15:30 | NUR ---
Assumed care of pt from JHOAN Wahl.
[2019-01-23] MEDS: morphine 2 MG/ML inj. syringe IV PRN (17:37)
--- NOTE | 2019-01-23 18:35 | NUR ---
Problems reprioritized. Patient report given, questions answered & plan of care reviewed with Kareem RN.
[2019-01-23] MEDS: hydrOXYzine 25 MG tablet PO SCH (20:26)
[2019-01-23] MEDS: insulin glargine (Lantus) pen - multi-dose SQ SCH (20:41)
[2019-01-24] VITALS (24 sets, daily range): BP systolic 90–130; BP diastolic 47–63
[2019-01-24] MEDS: mineral oil/petrolatum ophthal oint EACHEYE SCH ×4 (02:00→20:00)
[2019-01-24 04:16] LABS: BASOPHILS % (AUTO) 0.1 % (0-1); EOSINOPHILS # (AUTO) 0.1 X10'3 (0-0.9); EOSINOPHILS % (AUTO) 0.6 % (0-6); HEMATOCRIT 26.1 % (35.0-45.0); HEMOGLOBIN 8.8 g/dl (12.0-16.0); LYMPHOCYTES # (AUTO) 1.5 X10'3 (1.1-4.8); LYMPHOCYTES % (AUTO) 10.4 % (21-51); MEAN CORPUSCULAR HEMOGLOBIN 33.8 PG (27.0-31.0); MEAN CORPUSCULAR HGB CONC 33.9 g/dL (33.0-36.5); MEAN CORPUSCULAR VOLUME 99.9 FL (78-98); MEAN PLATELET VOLUME 8.8 FL (7.4-10.4); MONOCYTES # (AUTO) 1.5 X10'3 (0-0.9); MONOCYTES % (AUTO) 10.3 % (2-12); NEUTROPHILS # (AUTO) 11.1 X10'3 (1.8-7.7); NEUTROPHILS % (AUTO) 78.6 % (42-75); PLATELET COUNT 170 X10'3 (140-440); RED BLOOD COUNT 2.61 X10'6 (4.20-5.60); RED CELL DISTRIBUTION WIDTH 15.6 % (11.5-14.5); WHITE BLOOD COUNT 14.2 X10'3 (4.5-11.0)
[2019-01-24 04:29] LABS: ALANINE AMINOTRANSFERASE 22 U/L (12-78); ALBUMIN 1.4 G/DL (3.4-5.0); ALBUMIN/GLOBULIN RATIO 0.4 (1.1-1.5); ALKALINE PHOSPHATASE 71 IU/L (46-116); ANION GAP -1 (8-16); ASPARTATE AMINO TRANSFERASE 22 U/L (10-37); BILIRUBIN,TOTAL 0.2 MG/DL (0.1-1.0); BLOOD UREA NITROGEN 15 MG/DL (7-18); BUN/CREATININE RATIO 29.4 (6.6-38.0); CALCIUM 8.9 MG/DL (8.5-10.1); CHLORIDE 108 MMOL/L (99-107); CREATININE 0.51 MG/DL (0.40-0.90); GLUCOSE 110 MG/DL (70-104); PHOSPHORUS 3.7 MG/DL (2.3-4.5); POTASSIUM 3.7 MMOL/L (3.5-5.1); SODIUM 146 MMOL/L (135-145); TOTAL PROTEIN 5.4 G/DL (6.4-8.2); eGFR > 90 ML/MIN
[2019-01-24 04:33] LABS: PARTIAL THROMBOPLASTIN TIME 32 SECONDS (22-32)
[2019-01-24 05:18] LABS: TOTAL CELLS COUNTED 100
[2019-01-24 05:20] LABS: PLATELET ESTIMATE NORMAL
[2019-01-24 05:21] LABS: ANISOCYTOSIS FEW; HYPOCHROMASIA 1+; STOMATOCYTES 5; TOXIC GRANULATION 2+
[2019-01-24] MEDS: valproate sod 250mg/5ml UD oral syrup CORPAK SCH ×2 (08:49→20:52)
[2019-01-24] MEDS: quetiapine 100mg tablet PO SCH ×3 (08:50→21:48)
[2019-01-24] MEDS: metoprolol tartrate 25mg tablet PO SCH ×2 (08:50→20:00)
[2019-01-24] MEDS: pantoprazole 40mg Tablet.DR PO SCH (08:50)
[2019-01-24] MEDS: aripiprazole 5mg tablet PO SCH (08:50)
[2019-01-24] MEDS: levoTHYROXINE 25mcg tablet PO SCH (08:50)
[2019-01-24] MEDS: lactobacillus rhamnosus 10,000 MMU CELLS/CAPSULE PO SCH ×3 (08:51→20:52)
[2019-01-24] MEDS: furosemide 40mg tablet PO SCH (08:51)
[2019-01-24] MEDS: enoxaparin 40mg/0.4ml syringe SQ SCH (08:51)
[2019-01-24] MEDS: ferrous sulfate 325mg tablet PO SCH (08:51)
[2019-01-24] MEDS: fluvoxamine 25 MG tablet PO SCH ×3 (08:51→20:52)
[2019-01-24] MEDS: levoFLOXACIN-Levaquin 750MG/D5 150 ML IV SCH (08:51)
--- NOTE | 2019-01-24 11:51 | NUR ---
F/u: TF now d/c. Pt on pureed/NTL PO 75% meals meeting needs asking for ice creams; during RD visit pt was eating chopped popsicle. RD educated pt/RN on NTL restrictions and pt agrees to magic cup BIDLD. RD ordered new BSS for re-evaluation. Will continue to monitor. Recommend: 1. Continue pureed diet with nectar thick liquids per SPINNING FRAME TENDER recs 2. magic cup BIDLD 3. BSS re-eval per SPINNING FRAME TENDER for liquid consistency verification now off TF 4. wt per rx Addendum: 01/24/19 at [address] Amended: Links added.
[2019-01-24] MEDS: hydrOXYzine 25 MG tablet PO SCH ×2 (20:52→21:00)
[2019-01-24] MEDS: insulin glargine (Lantus) pen - multi-dose SQ SCH (20:53)
--- NOTE | 2019-01-24 21:15 | NUR ---
RN Note -MD Communication Called September regarding pt is lethargic and obtunded. Received order for ABG.
[2019-01-24 21:45] LABS: ABG BASE EXCESS 18.3 mmol/L (-2.0-3.0); ABG HCO3 46.1 mmol/L (22.0-26.0); ABG OXYGEN SATURATION 93.2 % (95-98); ABG PCO2 (T) 80.6 mmHg (32.0-45.0); ABG PH (T) 7.378 (7.350-7.450); ABG PO2 (T) 72.4 mmHg (83-108); ALLEN'S TEST Positive; FLOW 40 L/min; FMetHb 0.2 % (0.3-1.12); PATIENT TEMPERATURE 37.6; TOTAL HEMOGLOBIN 9.3 G/dl (12.0-16.0)
[2019-01-25] VITALS (23 sets, daily range): BP systolic 62–117; BP diastolic 35–80
[2019-01-25] MEDS: ipratropium/albuterol 3ml nebule NEB SCH (00:30)
[2019-01-25 03:21] LABS: BASOPHILS % (AUTO) 0.3 % (0-1); EOSINOPHILS # (AUTO) 0.2 X10'3 (0-0.9); EOSINOPHILS % (AUTO) 1.2 % (0-6); HEMATOCRIT 24.9 % (35.0-45.0); HEMOGLOBIN 8.5 g/dl (12.0-16.0); LYMPHOCYTES # (AUTO) 1.5 X10'3 (1.1-4.8); LYMPHOCYTES % (AUTO) 11.9 % (21-51); MEAN CORPUSCULAR HGB CONC 34.2 g/dL (33.0-36.5); MEAN CORPUSCULAR VOLUME 99.6 FL (78-98); MEAN PLATELET VOLUME 8.3 FL (7.4-10.4); MONOCYTES % (AUTO) 7.7 % (2-12); NEUTROPHILS # (AUTO) 10.1 X10'3 (1.8-7.7); NEUTROPHILS % (AUTO) 78.9 % (42-75); PLATELET COUNT 174 X10'3 (140-440); RED CELL DISTRIBUTION WIDTH 15.1 % (11.5-14.5); WHITE BLOOD COUNT 12.7 X10'3 (4.5-11.0)
[2019-01-25 03:28] LABS: PARTIAL THROMBOPLASTIN TIME 32 SECONDS (22-32)
[2019-01-25 03:37] LABS: ALANINE AMINOTRANSFERASE 20 U/L (12-78); ALBUMIN 1.3 G/DL (3.4-5.0); ALBUMIN/GLOBULIN RATIO 0.3 (1.1-1.5); ALKALINE PHOSPHATASE 69 IU/L (46-116); ANION GAP -2 (8-16); ASPARTATE AMINO TRANSFERASE 21 U/L (10-37); BILIRUBIN,TOTAL 0.1 MG/DL (0.1-1.0); BLOOD UREA NITROGEN 15 MG/DL (7-18); BUN/CREATININE RATIO 27.8 (6.6-38.0); CALCIUM 8.4 MG/DL (8.5-10.1); CHLORIDE 106 MMOL/L (99-107); CREATININE 0.54 MG/DL (0.40-0.90); GLUCOSE 111 MG/DL (70-104); PHOSPHORUS 4.1 MG/DL (2.3-4.5); POTASSIUM 3.6 MMOL/L (3.5-5.1); SODIUM 145 MMOL/L (135-145); TOTAL PROTEIN 5.2 G/DL (6.4-8.2); eGFR > 90 ML/MIN
[2019-01-25 03:40] LABS: TOTAL CARBON DIOXIDE 40.5 MMOL/L (24-32)
[2019-01-25 04:15] LABS: ABG BASE EXCESS 16.9 mmol/L (-2.0-3.0); ABG HCO3 43.5 mmol/L (22.0-26.0); ABG OXYGEN SATURATION 94.2 % (95-98); ABG PCO2 (T) 68.6 mmHg (32.0-45.0); ABG PH (T) 7.423 (7.350-7.450); ABG PO2 (T) 77.9 mmHg (83-108); ALLEN'S TEST Positive; FCOHb 0.2 % (0.5-1.5); PATIENT TEMPERATURE 37.5; RESPIRATORY RATE 16 b/min; RESPIRATORY RATE (OBSERVED) 20 b/min; TOTAL HEMOGLOBIN 9.1 G/dl (12.0-16.0)
[2019-01-25 04:18] LABS: ANISOCYTOSIS FEW; NUCLEATED RED BLOOD CELLS 1 /100WBC (0-0); PLATELET ESTIMATE NORMAL; POLYCHROMASIA FEW; STOMATOCYTES 4+; TOTAL CELLS COUNTED 100
[2019-01-25 04:19] LABS: TOXIC GRANULATION 1+
--- NOTE | 2019-01-25 06:35 | NUR ---
Patient in room [facility] 2011. I have received report from Shamika STAPLES (Mac) and had the opportunity to ask questions and assume patient care. Addendum: 01/25/19 at 0636 by Anastasiia Hansen RN Amended: Links added.
[2019-01-25] MEDS: enoxaparin 40mg/0.4ml syringe SQ SCH (07:34)
[2019-01-25] MEDS: levoTHYROXINE 25mcg tablet PO SCH (07:34)
[2019-01-25] MEDS: furosemide 40mg tablet PO SCH (07:34)
[2019-01-25] MEDS: lactobacillus rhamnosus 10,000 MMU CELLS/CAPSULE PO SCH ×2 (07:34→20:41)
[2019-01-25] MEDS: pantoprazole 40mg Tablet.DR PO SCH (07:35)
[2019-01-25] MEDS: aripiprazole 5mg tablet PO SCH (07:35)
[2019-01-25] MEDS: fluvoxamine 25 MG tablet PO SCH ×2 (07:35→20:41)
[2019-01-25] MEDS: quetiapine 100mg tablet PO SCH ×2 (07:35→20:41)
[2019-01-25] MEDS: ferrous sulfate 325mg tablet PO SCH (07:35)
[2019-01-25] MEDS: levoFLOXACIN-Levaquin 750MG/D5 150 ML IV SCH (07:36)
[2019-01-25] MEDS: valproate sod 250mg/5ml UD oral syrup CORPAK SCH ×2 (07:36→20:41)
[2019-01-25] MEDS: metoprolol tartrate 25mg tablet PO SCH ×3 (08:00→20:00)
--- NOTE | 2019-01-25 09:22 | NUR ---
Dr. Giron in to see pt. RN notified him that pt. was taken off bipap and placed on hi flow 02 this am.
--- NOTE | 2019-01-25 09:43 | NUR ---
Pt. did not tolerate sitting up in chair for very long. Pt. assisted back to bed. HR in the high 140s-150s while in chair. Heart rate decreased when back in bed to the 130s. Will continue to monitor.
--- NOTE | 2019-01-25 10:48 | NUR ---
Heart rate remains in the 130s. Metropolol given now since BP is greater than 100. Was held @ 0800 for decreased BP.
--- NOTE | 2019-01-25 11:04 | NUR ---
Pt. put back on bipap for SP02 in the low to mid 80s.
--- NOTE | 2019-01-25 13:03 | NUR ---
Pt. took bipap tubing apart from mask. Refusing to wear mask. Hi flow 02 back on now.
--- NOTE | 2019-01-25 15:23 | NUR ---
Pt. needs continuous reminding/monitoring to keep hi flow 02 on.
--- NOTE | 2019-01-25 17:33 | NUR ---
Pt. has attempted to use the bed olea three times this shift for a BM. Pt. does have flatus. M.O.M is ordered PRN.
--- NOTE | 2019-01-25 18:16 | NUR ---
Problems reprioritized. Patient report given, questions answered & plan of care reviewed with Tricia STAPLES.
[2019-01-25] MEDS: hydrOXYzine 25 MG tablet PO SCH (20:41)
[2019-01-25] MEDS ORDERED: albumin (Human) 5% 250ml 250 ML IV ONE (21:45)
[2019-01-25] MEDS ORDERED: NORepinephrine 8mg/ 250ml NS 250 ML IV ONE (21:48)
[2019-01-25] MEDS: morphine 2 MG/ML inj. syringe IV PRN (21:50)
[2019-01-25] MEDS: NORepinephrine 8mg/ 250ml NS 250 ML IV SCH (21:58)
[2019-01-25 22:24] LABS: BASOPHILS # (AUTO) 0.2 X10'3 (0-0.2); BASOPHILS % (AUTO) 0.8 % (0-1); EOSINOPHILS % (AUTO) 0.1 % (0-6); LYMPHOCYTES # (AUTO) 3.5 X10'3 (1.1-4.8); MEAN CORPUSCULAR HEMOGLOBIN 33.3 PG (27.0-31.0); MEAN CORPUSCULAR VOLUME 104.3 FL (78-98); MEAN PLATELET VOLUME 8.9 FL (7.4-10.4); MONOCYTES # (AUTO) 1.2 X10'3 (0-0.9); MONOCYTES % (AUTO) 4.5 % (2-12); NEUTROPHILS # (AUTO) 21.9 X10'3 (1.8-7.7); NEUTROPHILS % (AUTO) 81.6 % (42-75); PLATELET COUNT 280 X10'3 (140-440); RED BLOOD COUNT 1.25 X10'6 (4.20-5.60); RED CELL DISTRIBUTION WIDTH 15.7 % (11.5-14.5)
[2019-01-25 22:33] LABS: HEMATOCRIT 13.1 % (35.0-45.0); HEMOGLOBIN 4.2 g/dl (12.0-16.0); WHITE BLOOD COUNT 26.9 X10'3 (4.5-11.0)
[2019-01-25 22:34] LABS: ALANINE AMINOTRANSFERASE 17 U/L (12-78); ALBUMIN 1.3 G/DL (3.4-5.0); ALBUMIN/GLOBULIN RATIO 0.5 (1.1-1.5); ALKALINE PHOSPHATASE 49 IU/L (46-116); ANION GAP 11 (8-16); ASPARTATE AMINO TRANSFERASE 14 U/L (10-37); BILIRUBIN,TOTAL 0.1 MG/DL (0.1-1.0); BLOOD UREA NITROGEN 52 MG/DL (7-18); BUN/CREATININE RATIO 49.5 (6.6-38.0); CALCIUM 8.4 MG/DL (8.5-10.1); CHLORIDE 107 MMOL/L (99-107); CREATININE 1.05 MG/DL (0.40-0.90); GLUCOSE 171 MG/DL (70-104); MAGNESIUM 1.5 MG/DL (1.5-2.4); PHOSPHORUS 4.3 MG/DL (2.3-4.5); POTASSIUM 4.6 MMOL/L (3.5-5.1); SODIUM 148 MMOL/L (135-145); TOTAL PROTEIN 4.1 G/DL (6.4-8.2); eGFR 52 ML/MIN
[2019-01-25] MEDS ORDERED: succinylcholine 20mg/ml inj IV ONE (22:54)
[2019-01-25] MEDS ORDERED: albuterol 2.5 MG/3 ML nebule NEB PRN (23:00)
[2019-01-25 23:01] LABS: NUCLEATED RED BLOOD CELLS 3 /100WBC (0-0); TOTAL CELLS COUNTED 100; TOXIC GRANULATION 2+
[2019-01-25 23:02] LABS: PLATELET ESTIMATE NORMAL
[2019-01-25 23:03] LABS: HYPOCHROMASIA 1+; POLYCHROMASIA FEW; STOMATOCYTES 2+
[2019-01-25 23:07] LABS: OCCULT BLOOD STOOL POSITIVE (Neg)
[2019-01-25] MEDS ORDERED: vasoPRESSIN 20 units/ml inj. ONE ×3 (23:09→23:14)
[2019-01-25] MEDS ORDERED: vasopressin inj. 20 UNIT in normal saline 100ml IV soln 39 ML IV SCH (23:15)
[2019-01-25] MEDS ORDERED: tranexamic acid 100mg/ml inj. IV ONE (23:15)
[2019-01-25] MEDS ORDERED: tranexamic acid inj. 630 MG in normal saline 100ml IV soln 100 ML IV ONE (23:25)
[2019-01-25 23:56] LABS: ABG HCO3 29.7 mmol/L (22.0-26.0); ABG PCO2 (T) 48.9 mmHg (32.0-45.0); ABG PH (T) 7.399 (7.350-7.450); ABG PO2 (T) 148.3 mmHg (83-108); MINUTE VOLUME 40 L/min; PATIENT TEMPERATURE 36.6; PEEP 5 cm H2O; RESPIRATORY RATE 24 b/min; RESPIRATORY RATE (OBSERVED) 24 b/min; TIDAL VOLUME 400 mL; TOTAL HEMOGLOBIN < 4.7 G/dl (12.0-16.0)
[2019-01-26] VITALS (33 sets, daily range): BP systolic 79–193; BP diastolic 26–95
[2019-01-26] MEDS ORDERED: midazolam 2 mg/2 ml injection ONE ×3 (00:18→01:54)
[2019-01-26] MEDS ORDERED: etomidate 2mg/ml inj. IV ONE (00:30)
[2019-01-26 01:46] LABS: ABG BASE EXCESS 10.4 mmol/L (-2.0-3.0); ABG HCO3 38.1 mmol/L (22.0-26.0); ABG OXYGEN SATURATION 80.6 % (95-98); ABG PCO2 (T) 75.8 mmHg (32.0-45.0); ABG PH (T) 7.319 (7.350-7.450); ABG PO2 (T) 45.6 mmHg (83-108); ALLEN'S TEST Positive; FCOHb 0.3 % (0.5-1.5); FMetHb 0.3 % (0.3-1.12); FO2Hb 80.1 % (94-100); MINUTE VOLUME 8 L/min; PEEP 15 cm H2O; RESPIRATORY RATE 26 b/min; RESPIRATORY RATE (OBSERVED) 26 b/min; TOTAL HEMOGLOBIN 8.1 G/dl (12.0-16.0)
[2019-01-26] MEDS ORDERED: VECuronium br 10mg inj. IV ONE (01:50)
[2019-01-26] MEDS ORDERED: pantoprazole 40 MG vial IV ONE (01:55)
[2019-01-26] MEDS ORDERED: CISatracurium besylate inj. 100 MG in dextrose 5%-water 50ml 40 ML IV SCH (02:05)
[2019-01-26] MEDS: octreotide inj. 1,250 MCG in normal saline 250ml IV soln 243.75 ML IV SCH (02:07)
[2019-01-26] MEDS: ipratropium/albuterol 3ml nebule NEB SCH ×6 (03:12→23:16)
[2019-01-26] MEDS ORDERED: acetaminophen 1,000mg/100ml IV 100 ML IV ONE (03:40)
[2019-01-26 03:50] LABS: ABG BASE EXCESS 7.9 mmol/L (-2.0-3.0); ABG HCO3 34.4 mmol/L (22.0-26.0); ABG PH (T) 7.375 (7.350-7.450); ABG PO2 (T) 60.1 mmHg (83-108); ALLEN'S TEST Positive; FCOHb 0.1 % (0.5-1.5); FMetHb 0.1 % (0.3-1.12); FO2Hb 89.8 % (94-100); MINUTE VOLUME 10 L/min; PATIENT TEMPERATURE 38.4; PEEP 15 cm H2O; RESPIRATORY RATE 26 b/min; RESPIRATORY RATE (OBSERVED) 26 b/min; TOTAL HEMOGLOBIN 12.3 G/dl (12.0-16.0)
[2019-01-26] MEDS: pantoprazole 40MG/NS 100ML BAG 100 ML IV SCH ×5 (05:12→17:57)
[2019-01-26 05:13] LABS: MEAN PLATELET VOLUME 8.1 FL (7.4-10.4)
[2019-01-26 05:15] LABS: HEMATOCRIT 32.1 % (35.0-45.0); MEAN CORPUSCULAR HEMOGLOBIN 30.4 PG (27.0-31.0); MEAN CORPUSCULAR HGB CONC 34.2 g/dL (33.0-36.5); PLATELET COUNT 194 X10'3 (140-440); RED CELL DISTRIBUTION WIDTH 17.6 % (11.5-14.5)
[2019-01-26 05:20] LABS: PARTIAL THROMBOPLASTIN TIME 29 SECONDS (22-32)
[2019-01-26 05:23] LABS: WHITE BLOOD COUNT 32.7 X10'3 (4.5-11.0)
[2019-01-26 05:27] LABS: ALANINE AMINOTRANSFERASE 17 U/L (12-78); ALBUMIN 1.8 G/DL (3.4-5.0); ALBUMIN/GLOBULIN RATIO 0.6 (1.1-1.5); ALKALINE PHOSPHATASE 50 IU/L (46-116); ANION GAP 6 (8-16); ASPARTATE AMINO TRANSFERASE 31 U/L (10-37); BILIRUBIN,TOTAL 0.3 MG/DL (0.1-1.0); BLOOD UREA NITROGEN 54 MG/DL (7-18); BUN/CREATININE RATIO 63.5 (6.6-38.0); CALCIUM 7.9 MG/DL (8.5-10.1); CHLORIDE 109 MMOL/L (99-107); CREATININE 0.85 MG/DL (0.40-0.90); GLUCOSE 95 MG/DL (70-104); PHOSPHORUS 4.2 MG/DL (2.3-4.5); POTASSIUM 3.5 MMOL/L (3.5-5.1); PREALBUMIN 12.9 MG/DL (19-36); SODIUM 151 MMOL/L (135-145); TOTAL PROTEIN 4.6 G/DL (6.4-8.2); eGFR 66 ML/MIN
[2019-01-26 05:55] LABS: ANISOCYTOSIS 1+; PLATELET ESTIMATE NORMAL; TOTAL CELLS COUNTED 100
[2019-01-26 05:56] LABS: TOXIC GRANULATION 2+
[2019-01-26 05:57] LABS: POLYCHROMASIA FEW
--- NOTE | 2019-01-26 06:34 | NUR ---
Late entry: 2139 pt restless and agitated, in ST 140's SBP 70-80's, called Jas Mejia GOLF BALL MOLDER received order to give Morphine and Albumin. 2149 BP decreasing albumin infusing and Levophed ordered. 0 pt having multiple black stools 2300 pt intubated, by Dr Ray with etomidate and sucx, pt had approx 1L of emisis with BiPAP on witnessed prior to intubation, GOLF BALL MOLDER notified. Decreased BP pt on max dose of Levophed and Vasopressin infusing. All criticals were called to Jas Mejia GOLF BALL MOLDER
[2019-01-26 06:42] LABS: CLARITY,URINE CLEAR (Clear); COLOR,URINE YELLOW (Yellow); GLUCOSE, URINE NEGATIVE (Neg); KETONES,URINE NEGATIVE (Neg); LEUKOCYTE ESTERASE ,URINE NEGATIVE (Neg); NITRITES, URINE NEGATIVE (Neg); OCCULT BLOOD,URINE TRACE-INTACT (Neg); PH,URINE 5.5 (4.8-8.0); PROTEIN,URINE NEGATIVE (Neg); UROBILINOGEN,URINE 0.2 E.U/dL (0.2-1.0)
[2019-01-26 06:45] LABS: UA COLLECTION TYPE FOLEY CATH
[2019-01-26] MEDS: midazolam 100mg in NS 100ml 100 ML IV PRN ×2 (06:48→14:35)
[2019-01-26] MEDS: NORepinephrine 8mg/ 250ml NS 250 ML IV SCH ×2 (06:49→18:31)
--- NOTE | 2019-01-26 06:54 | NUR ---
Patient in room CICU 2011. I have received report from Tricia and had the opportunity to ask questions and assume patient care with Kota .
[2019-01-26 07:00] LABS: WBC,URINE 0-4 /HPF (0-4)
[2019-01-26 07:01] LABS: BACTERIA,URINE FEW /HPF (Neg); SQUAMOUS EPITHELIAL CELL,UR NONE SEEN /LPF (FEW)
[2019-01-26] MEDS: pantoprazole 40mg Tablet.DR PO SCH (08:00)
[2019-01-26] MEDS: metoprolol tartrate 25mg tablet PO SCH (08:00)
[2019-01-26] MEDS: furosemide 40mg tablet PO SCH (08:00)
[2019-01-26] MEDS: FENTANYL-0.9 % NACL/PF 100 ML IV PRN ×3 (08:01→21:43)
[2019-01-26] MEDS: levoFLOXACIN-Levaquin 750MG/D5 150 ML IV SCH (08:01)
[2019-01-26 10:02] LABS: MAGNESIUM 1.3 MG/DL (1.5-2.4)
[2019-01-26] MEDS ORDERED: normal saline 1000ml 1,000 ML IV ONE ×3 (10:25→15:50)
[2019-01-26] MEDS: quetiapine 100mg tablet PO SCH ×2 (10:34→21:53)
[2019-01-26] MEDS: aripiprazole 5mg tablet PO SCH (10:34)
[2019-01-26] MEDS: fluvoxamine 25 MG tablet PO SCH ×2 (10:34→21:53)
[2019-01-26] MEDS: ferrous sulfate 325mg tablet PO SCH (10:34)
[2019-01-26] MEDS: valproate sod 250mg/5ml UD oral syrup CORPAK SCH ×2 (10:35→21:54)
[2019-01-26] MEDS: lactobacillus rhamnosus 10,000 MMU CELLS/CAPSULE PO SCH ×2 (10:37→21:53)
[2019-01-26] MEDS: piperacillin/tazo 3.375gm/50ml 50 ML IV SCH ×2 (10:51→15:54)
[2019-01-26] MEDS: levoTHYROXINE 25mcg tablet PO SCH (10:52)
--- NOTE | 2019-01-26 11:12 | NUR ---
1030- Rounds. Dr Mccurdy ordered for 1Lt NS bolus, CVP not accurate due to PEEP of 15, ok to give her PO meds via the OG, made MD aware of LA of 4. Nursing had started patient back on vasopressin with levo, MD prefers increasing levo before vasopressin. Decreasing vasopressin and increasing levo, also bolus infusing. Dr Ren here, changed anbx to zosyn, verified with MD peña with zosyn with patient having cephalexin allergy and send sputum culture.
--- NOTE | 2019-01-26 12:27 | NUR ---
1225- GI on the way for upper endoscopy. Conservator Benny Braden consented for the upper GI. Familiar with procedure, has consented for her to have this before, emergently, consented with nursing Mara and Benny via phone. CVP up to 13, notified Dr Mccurdy, order to give another liter of NS.
[2019-01-26] MEDS ORDERED: fentaNYL/PF 50MCG/1 ML 2ML syringe ONE (13:03)
[2019-01-26] MEDS ORDERED: LIDOcaine Viscous 15ml cup ONE (13:03)
[2019-01-26] MEDS ORDERED: MIDAZolam 5mg/5ml vial ONE (13:03)
--- NOTE | 2019-01-26 14:26 | NUR ---
1330-CVP 14-15. Dr Mccurdy aware. GI here for scope, completed by 1415, received 3mg versed and 20mg of addition fentanyl, some areas of gastritis one area of possible erosion, size 18 OG replaced, placement verified with scope and auscultation. no obvious bleeding noted, see md report.
[2019-01-26 15:49] LABS: BASOPHILS # (AUTO) 0.1 X10'3 (0-0.2); BASOPHILS % (AUTO) 0.1 % (0-1); EOSINOPHILS % (AUTO) 0.1 % (0-6); HEMATOCRIT 27.9 % (35.0-45.0); HEMOGLOBIN 9.6 g/dl (12.0-16.0); LYMPHOCYTES # (AUTO) 1.1 X10'3 (1.1-4.8); LYMPHOCYTES % (AUTO) 2.1 % (21-51); MEAN CORPUSCULAR HEMOGLOBIN 30.5 PG (27.0-31.0); MEAN CORPUSCULAR HGB CONC 34.4 g/dL (33.0-36.5); MEAN CORPUSCULAR VOLUME 88.7 FL (78-98); MEAN PLATELET VOLUME 8.5 FL (7.4-10.4); MONOCYTES # (AUTO) 0.7 X10'3 (0-0.9); MONOCYTES % (AUTO) 1.4 % (2-12); NEUTROPHILS % (AUTO) 96.3 % (42-75); PLATELET COUNT 240 X10'3 (140-440); RED BLOOD COUNT 3.15 X10'6 (4.20-5.60); RED CELL DISTRIBUTION WIDTH 17.4 % (11.5-14.5)
[2019-01-26 15:50] LABS: WHITE BLOOD COUNT 50.9 X10'3 (4.5-11.0)
--- NOTE | 2019-01-26 15:50 | NUR ---
1550-Dr Mccurdy rounds, CVP 13, give 1 more liter NS, continue to wean FIO2 for a sat of 88-90%, DO NOT wean PEEP. Repeat ABG in AM. Critical WBC of 50.[address] Mccurdy.
[2019-01-26 15:58] LABS: ALANINE AMINOTRANSFERASE 15 U/L (12-78); ALBUMIN 1.4 G/DL (3.4-5.0); ALBUMIN/GLOBULIN RATIO 0.5 (1.1-1.5); ALKALINE PHOSPHATASE 52 IU/L (46-116); ANION GAP 8 (8-16); ASPARTATE AMINO TRANSFERASE 29 U/L (10-37); BILIRUBIN,TOTAL 0.3 MG/DL (0.1-1.0); BLOOD UREA NITROGEN 50 MG/DL (7-18); BUN/CREATININE RATIO 60.2 (6.6-38.0); CALCIUM 6.8 MG/DL (8.5-10.1); CHLORIDE 112 MMOL/L (99-107); CREATININE 0.83 MG/DL (0.40-0.90); GLUCOSE 100 MG/DL (70-104); MAGNESIUM 1.6 MG/DL (1.5-2.4); SODIUM 151 MMOL/L (135-145); TOTAL CARBON DIOXIDE 30.7 MMOL/L (24-32); TOTAL PROTEIN 4.2 G/DL (6.4-8.2); eGFR 68 ML/MIN
[2019-01-26 15:59] LABS: POTASSIUM 2.9 MMOL/L (3.5-5.1)
[2019-01-26] MEDS ORDERED: POTASSIUM CL IV ONE (16:10)
[2019-01-26 16:15] LABS: ANISOCYTOSIS 1+; PLATELET ESTIMATE NORMAL; TOTAL CELLS COUNTED 100
[2019-01-26 16:16] LABS: POLYCHROMASIA FEW
[2019-01-26 16:17] LABS: TOXIC GRANULATION 1+; TOXIC VACUOLATION FEW
[2019-01-26] MEDS: potassium Cl 20mEq/100mL bag 100 ML IV PRN ×3 (16:21→21:41)
--- NOTE | 2019-01-26 17:14 | NUR ---
Radha SALGADO wants PO potassium 40Meq q 8hours, in addition to current replacement, CVP currently 16 after three 1 liter boluses. Free water flushes to start at 200cc q 4hours.
--- NOTE | 2019-01-26 17:52 | NUR ---
Reviewed orientee charting, agree with charting unless noted in my assessment.
--- NOTE | 2019-01-26 18:35 | NUR ---
Problems reprioritized. Patient report given, questions answered & plan of care reviewed with Tricia.
[2019-01-26 20:42] LABS: HEMOGLOBIN 9.9 g/dl (12.0-16.0); MEAN CORPUSCULAR HEMOGLOBIN 30.3 PG (27.0-31.0); MEAN CORPUSCULAR HGB CONC 34.3 g/dL (33.0-36.5); MEAN CORPUSCULAR VOLUME 88.3 FL (78-98); MEAN PLATELET VOLUME 7.8 FL (7.4-10.4); PLATELET COUNT 282 X10'3 (140-440); RED BLOOD COUNT 3.28 X10'6 (4.20-5.60); RED CELL DISTRIBUTION WIDTH 17.5 % (11.5-14.5)
[2019-01-26 20:49] LABS: WHITE BLOOD COUNT 59.6 X10'3 (4.5-11.0)
[2019-01-26] MEDS: potassium Cl oral solution 20 MEQ/15 ML PO SCH (21:52)
[2019-01-26] MEDS: hydrOXYzine 25 MG tablet PO SCH (21:53)
[2019-01-27] VITALS (24 sets, daily range): BP systolic 88–125; BP diastolic 40–64
[2019-01-27] MEDS: octreotide inj. 1,250 MCG in normal saline 250ml IV soln 243.75 ML IV SCH (00:05)
[2019-01-27] MEDS: midazolam 100mg in NS 100ml 100 ML IV PRN ×3 (00:06→21:17)
[2019-01-27] MEDS: pantoprazole 40MG/NS 100ML BAG 100 ML IV SCH ×3 (00:06→08:32)
[2019-01-27] MEDS: piperacillin/tazo 3.375gm/50ml 50 ML IV SCH ×4 (00:07→23:54)
[2019-01-27] MEDS: potassium Cl 20mEq/100mL bag 100 ML IV PRN (00:17)
[2019-01-27] MEDS: mineral oil/petrolatum ophthal oint EACHEYE SCH ×4 (03:01→21:16)
[2019-01-27 03:09] LABS: BASOPHILS # (AUTO) 0.1 X10'3 (0-0.2); BASOPHILS % (AUTO) 0.2 % (0-1); EOSINOPHILS # (AUTO) 0.1 X10'3 (0-0.9); EOSINOPHILS % (AUTO) 0.2 % (0-6); HEMATOCRIT 27.9 % (35.0-45.0); HEMOGLOBIN 9.5 g/dl (12.0-16.0); LYMPHOCYTES # (AUTO) 1.1 X10'3 (1.1-4.8); LYMPHOCYTES % (AUTO) 1.9 % (21-51); MEAN CORPUSCULAR HEMOGLOBIN 30.4 PG (27.0-31.0); MEAN CORPUSCULAR HGB CONC 34.1 g/dL (33.0-36.5); MEAN CORPUSCULAR VOLUME 89.1 FL (78-98); MEAN PLATELET VOLUME 7.7 FL (7.4-10.4); MONOCYTES # (AUTO) 0.8 X10'3 (0-0.9); MONOCYTES % (AUTO) 1.5 % (2-12); NEUTROPHILS # (AUTO) 53.2 X10'3 (1.8-7.7); NEUTROPHILS % (AUTO) 96.2 % (42-75); PLATELET COUNT 264 X10'3 (140-440); RED BLOOD COUNT 3.13 X10'6 (4.20-5.60); RED CELL DISTRIBUTION WIDTH 17.4 % (11.5-14.5)
[2019-01-27] MEDS: ipratropium/albuterol 3ml nebule NEB SCH ×6 (03:10→23:10)
[2019-01-27 03:22] LABS: WHITE BLOOD COUNT 55.3 X10'3 (4.5-11.0)
[2019-01-27 03:25] LABS: ABG BASE EXCESS 5.4 mmol/L (-2.0-3.0); ABG HCO3 28.6 mmol/L (22.0-26.0); ABG OXYGEN SATURATION 94.5 % (95-98); ABG PCO2 (T) 36.2 mmHg (32.0-45.0); ABG PH (T) 7.515 (7.350-7.450); ABG PO2 (T) 73.7 mmHg (83-108); ALLEN'S TEST Positive; FCOHb 0.3 % (0.5-1.5); FMetHb 0.2 % (0.3-1.12); MINUTE VOLUME 11 L/min; PATIENT TEMPERATURE 36.8; PEEP 15 cm H2O; RESPIRATORY RATE 26 b/min; RESPIRATORY RATE (OBSERVED) 26 b/min; TOTAL HEMOGLOBIN 10.7 G/dl (12.0-16.0)
--- NOTE | 2019-01-27 03:25 | NUR ---
Patient in room CICU 2011. I have received report from Pancho RN and Kota RN and had the opportunity to ask questions and assume patient care. Pt on vent at 65% PEEP of 15, Levophed gtt to keep MAP greater than 65, fentanyl gtt and versed gtt for pain control and sedation, will titrate per protocol. Protonix and Sandostatin gtt infusing per provider orders. All vasoactive medications infusing via PICC. All monitoring alarms audible. See interventions for more information. Will continue to monitor.
--- NOTE | 2019-01-27 03:29 | NUR ---
No change in condition.
[2019-01-27 03:34] LABS: PARTIAL THROMBOPLASTIN TIME 34 SECONDS (22-32)
[2019-01-27 03:36] LABS: ANISOCYTOSIS 1+; PLATELET ESTIMATE NORMAL; TOTAL CELLS COUNTED 100
[2019-01-27 03:42] LABS: ALANINE AMINOTRANSFERASE 15 U/L (12-78); ALBUMIN 1.5 G/DL (3.4-5.0); ALBUMIN/GLOBULIN RATIO 0.5 (1.1-1.5); ALKALINE PHOSPHATASE 66 IU/L (46-116); ANION GAP 7 (8-16); ASPARTATE AMINO TRANSFERASE 31 U/L (10-37); BILIRUBIN,TOTAL 0.3 MG/DL (0.1-1.0); BLOOD UREA NITROGEN 40 MG/DL (7-18); BUN/CREATININE RATIO 49.4 (6.6-38.0); CALCIUM 7.8 MG/DL (8.5-10.1); CHLORIDE 114 MMOL/L (99-107); CREATININE 0.81 MG/DL (0.40-0.90); GLUCOSE 92 MG/DL (70-104); PHOSPHORUS 3.7 MG/DL (2.3-4.5); POTASSIUM 5.1 MMOL/L (3.5-5.1); SODIUM 151 MMOL/L (135-145); TOTAL CARBON DIOXIDE 30.4 MMOL/L (24-32); TOTAL PROTEIN 4.8 G/DL (6.4-8.2); eGFR 70 ML/MIN
[2019-01-27] MEDS: FENTANYL-0.9 % NACL/PF 100 ML IV PRN ×3 (04:35→23:25)
[2019-01-27] MEDS: NORepinephrine 8mg/ 250ml NS 250 ML IV SCH ×3 (05:04→23:54)
[2019-01-27] MEDS: quetiapine 100mg tablet PO SCH ×2 (08:33→21:15)
[2019-01-27] MEDS: levoTHYROXINE 25mcg tablet PO SCH (08:33)
[2019-01-27] MEDS: fluvoxamine 25 MG tablet PO SCH ×2 (08:33→21:15)
[2019-01-27] MEDS: lactobacillus rhamnosus 10,000 MMU CELLS/CAPSULE PO SCH ×2 (08:34→21:14)
[2019-01-27] MEDS: ferrous sulfate 325mg tablet PO SCH (08:34)
[2019-01-27] MEDS: valproate sod 250mg/5ml UD oral syrup CORPAK SCH ×2 (08:34→21:16)
[2019-01-27] MEDS: aripiprazole 5mg tablet PO SCH (08:34)
[2019-01-27] MEDS: potassium Cl oral solution 20 MEQ/15 ML PO SCH (08:34)
[2019-01-27 09:28] LABS: MAGNESIUM 1.8 MG/DL (1.5-2.4)
--- NOTE | 2019-01-27 11:21 | NUR ---
Tube feeding consult. Patient is now intubated, sedated. Receiving treatment for sepsis, pneumonia per MD note. Sodium is elevated at 151 mg/dl, water flushes were started at 200ml Q4H. Tube feeding to begin today with water flushes increased to 300 Q4H as discussed with MD. Endoscopy yesterday showed no active GI bleed per bedside RN. Patient admitted from [place] with aspiration pneumonia and sepsis. Confused, history of schizophrenia. Will continue to follow. Recommend: 1. continuous TF per OG tube starting at 20 ml/hr and advance by 20 ml Q8H to goal rate of 65 ml/hr to provide 1560 ml, 1872 gilmar, 117 g protein, and 1265 ml water. 2. additional water flush 300 ml Q4H 3. daily wt, prealbumin q Saturday and 4. When extubated, BSS prior to diet advancement d/t dysphagia Addendum: 01/27/19 at [address] Amended: Links added.
--- NOTE | 2019-01-27 18:47 | NUR ---
Problems reprioritized. Patient report given, questions answered & plan of care reviewed with Debra.
[2019-01-27] MEDS ORDERED: pantoprazole 40 MG vial IV SCH (20:00)
[2019-01-27] MEDS: hydrOXYzine 25 MG tablet PO SCH (21:14)
[2019-01-27] MEDS: pantoprazole 40 MG vial IV SCH (21:14)
--- NOTE | 2019-01-27 23:30 | NUR ---
patient still very sleepy , even turning down sedation , turn off all sedation to assess neurologic assessment
[2019-01-28] VITALS (22 sets, daily range): BP systolic 94–131; BP diastolic 45–60
[2019-01-28] MEDS: mineral oil/petrolatum ophthal oint EACHEYE SCH ×4 (02:28→20:31)
[2019-01-28] MEDS: ipratropium/albuterol 3ml nebule NEB SCH ×6 (02:54→23:08)
[2019-01-28 03:10] LABS: ABG BASE EXCESS 7.6 mmol/L (-2.0-3.0); ABG HCO3 31.9 mmol/L (22.0-26.0); ABG OXYGEN SATURATION 88.2 % (95-98); ABG PCO2 (T) 44.4 mmHg (32.0-45.0); ABG PH (T) 7.475 (7.350-7.450); ABG PO2 (T) 54.5 mmHg (83-108); ALLEN'S TEST Positive; FCOHb 0.3 % (0.5-1.5); FMetHb 0.3 % (0.3-1.12); FO2Hb 87.7 % (94-100); MINUTE VOLUME 9 L/min; PATIENT TEMPERATURE 37.3; PEEP 10 cm H2O; RESPIRATORY RATE 22 b/min; RESPIRATORY RATE (OBSERVED) 22 b/min; TOTAL HEMOGLOBIN 9.5 G/dl (12.0-16.0)
[2019-01-28 03:58] LABS: BASOPHILS # (AUTO) 0.1 X10'3 (0-0.2); BASOPHILS % (AUTO) 0.2 % (0-1); EOSINOPHILS # (AUTO) 0.2 X10'3 (0-0.9); EOSINOPHILS % (AUTO) 0.5 % (0-6); HEMATOCRIT 25.3 % (35.0-45.0); HEMOGLOBIN 8.5 g/dl (12.0-16.0); LYMPHOCYTES # (AUTO) 1.3 X10'3 (1.1-4.8); LYMPHOCYTES % (AUTO) 2.9 % (21-51); MEAN CORPUSCULAR HEMOGLOBIN 30.3 PG (27.0-31.0); MEAN CORPUSCULAR HGB CONC 33.5 g/dL (33.0-36.5); MEAN CORPUSCULAR VOLUME 90.6 FL (78-98); MEAN PLATELET VOLUME 7.7 FL (7.4-10.4); MONOCYTES # (AUTO) 0.9 X10'3 (0-0.9); MONOCYTES % (AUTO) 2.1 % (2-12); NEUTROPHILS # (AUTO) 41.2 X10'3 (1.8-7.7); NEUTROPHILS % (AUTO) 94.3 % (42-75); PLATELET COUNT 224 X10'3 (140-440); RED BLOOD COUNT 2.79 X10'6 (4.20-5.60); RED CELL DISTRIBUTION WIDTH 17.4 % (11.5-14.5)
[2019-01-28 04:05] LABS: WHITE BLOOD COUNT 43.7 X10'3 (4.5-11.0)
[2019-01-28 04:08] LABS: PARTIAL THROMBOPLASTIN TIME 38 SECONDS (22-32)
[2019-01-28 04:13] LABS: ALANINE AMINOTRANSFERASE 11 U/L (12-78); ALBUMIN 1.1 G/DL (3.4-5.0); ALBUMIN/GLOBULIN RATIO 0.3 (1.1-1.5); ALKALINE PHOSPHATASE 80 IU/L (46-116); ANION GAP 4 (8-16); ASPARTATE AMINO TRANSFERASE 20 U/L (10-37); BILIRUBIN,TOTAL 0.2 MG/DL (0.1-1.0); BLOOD UREA NITROGEN 22 MG/DL (7-18); BUN/CREATININE RATIO 30.1 (6.6-38.0); CALCIUM 7.9 MG/DL (8.5-10.1); CHLORIDE 113 MMOL/L (99-107); CREATININE 0.73 MG/DL (0.40-0.90); GLUCOSE 102 MG/DL (70-104); PHOSPHORUS 3.7 MG/DL (2.3-4.5); POTASSIUM 3.5 MMOL/L (3.5-5.1); SODIUM 149 MMOL/L (135-145); TOTAL CARBON DIOXIDE 31.7 MMOL/L (24-32); TOTAL PROTEIN 4.6 G/DL (6.4-8.2); eGFR 79 ML/MIN
[2019-01-28 04:38] LABS: TOTAL CELLS COUNTED 100
[2019-01-28 04:39] LABS: ANISOCYTOSIS 1+; HYPOCHROMASIA 1+; PLATELET ESTIMATE NORMAL
--- NOTE | 2019-01-28 06:34 | NUR ---
Problems reprioritized. Patient report given, questions answered & plan of care reviewed with Bing STAPLES.
--- NOTE | 2019-01-28 06:45 | NUR ---
Patient in room CICU 2011. I have received report from JHOAN Richardson and had the opportunity to ask questions and assume patient care.
[2019-01-28] MEDS: piperacillin/tazo 3.375gm/50ml 50 ML IV SCH ×3 (09:05→23:36)
[2019-01-28] MEDS: fluvoxamine 25 MG tablet PO SCH ×2 (09:23→20:31)
[2019-01-28] MEDS: levoTHYROXINE 25mcg tablet PO SCH (09:23)
[2019-01-28] MEDS: aripiprazole 5mg tablet PO SCH (09:23)
[2019-01-28] MEDS: ferrous sulfate 325mg tablet PO SCH (09:24)
[2019-01-28] MEDS: quetiapine 100mg tablet PO SCH ×2 (09:24→20:31)
[2019-01-28] MEDS: lactobacillus rhamnosus 10,000 MMU CELLS/CAPSULE PO SCH ×2 (09:25→20:30)
[2019-01-28] MEDS: pantoprazole 40 MG vial IV SCH ×2 (09:25→20:30)
[2019-01-28] MEDS: valproate sod 250mg/5ml UD oral syrup CORPAK SCH ×2 (09:25→20:31)
[2019-01-28] MEDS: NORepinephrine 8mg/ 250ml NS 250 ML IV SCH (09:27)
[2019-01-28] MEDS: hydrOXYzine 25 MG tablet PO SCH (20:31)
[2019-01-29] VITALS (24 sets, daily range): BP systolic 88–115; BP diastolic 46–58
[2019-01-29] MEDS: mineral oil/petrolatum ophthal oint EACHEYE SCH ×4 (02:16→20:22)
[2019-01-29 02:21] LABS: BASOPHILS # (AUTO) 0.1 X10'3 (0-0.2); BASOPHILS % (AUTO) 0.3 % (0-1); EOSINOPHILS # (AUTO) 0.1 X10'3 (0-0.9); EOSINOPHILS % (AUTO) 0.4 % (0-6); HEMATOCRIT 23.5 % (35.0-45.0); HEMOGLOBIN 7.8 g/dl (12.0-16.0); LYMPHOCYTES # (AUTO) 0.8 X10'3 (1.1-4.8); LYMPHOCYTES % (AUTO) 3.3 % (21-51); MEAN CORPUSCULAR HEMOGLOBIN 30.4 PG (27.0-31.0); MEAN CORPUSCULAR HGB CONC 33.5 g/dL (33.0-36.5); MEAN CORPUSCULAR VOLUME 90.9 FL (78-98); MEAN PLATELET VOLUME 8.1 FL (7.4-10.4); MONOCYTES # (AUTO) 0.7 X10'3 (0-0.9); MONOCYTES % (AUTO) 2.8 % (2-12); NEUTROPHILS # (AUTO) 22.4 X10'3 (1.8-7.7); NEUTROPHILS % (AUTO) 93.2 % (42-75); PLATELET COUNT 201 X10'3 (140-440); RED BLOOD COUNT 2.58 X10'6 (4.20-5.60); RED CELL DISTRIBUTION WIDTH 17.5 % (11.5-14.5); WHITE BLOOD COUNT 24.1 X10'3 (4.5-11.0)
[2019-01-29 02:32] LABS: PARTIAL THROMBOPLASTIN TIME 37 SECONDS (22-32)
[2019-01-29 02:33] LABS: ALANINE AMINOTRANSFERASE 8 U/L (12-78); ALBUMIN/GLOBULIN RATIO 0.3 (1.1-1.5); ALKALINE PHOSPHATASE 77 IU/L (46-116); ANION GAP 2 (8-16); ASPARTATE AMINO TRANSFERASE 14 U/L (10-37); BILIRUBIN,TOTAL 0.2 MG/DL (0.1-1.0); BLOOD UREA NITROGEN 18 MG/DL (7-18); CALCIUM 7.8 MG/DL (8.5-10.1); CHLORIDE 114 MMOL/L (99-107); GLUCOSE 116 MG/DL (70-104); PHOSPHORUS 3.4 MG/DL (2.3-4.5); PREALBUMIN 5.5 MG/DL (19-36); SODIUM 148 MMOL/L (135-145); TOTAL PROTEIN 4.5 G/DL (6.4-8.2); eGFR > 90 ML/MIN
[2019-01-29 02:35] LABS: POTASSIUM 2.8 MMOL/L (3.5-5.1)
[2019-01-29 02:47] LABS: ANISOCYTOSIS 1+; HYPOCHROMASIA 1+; PLATELET ESTIMATE NORMAL; TOTAL CELLS COUNTED 100
[2019-01-29] MEDS: potassium Cl 20mEq/100mL bag 100 ML IV PRN ×4 (02:51→09:59)
[2019-01-29] MEDS: ipratropium/albuterol 3ml nebule NEB SCH ×6 (03:12→23:08)
[2019-01-29 03:41] LABS: ABG OXYGEN SATURATION 91.5 % (95-98); ABG PCO2 (T) 41.2 mmHg (32.0-45.0); ABG PH (T) 7.493 (7.350-7.450); ABG PO2 (T) 61.2 mmHg (83-108); ALLEN'S TEST Positive; FCOHb 0.3 % (0.5-1.5); FMetHb 0.1 % (0.3-1.12); FO2Hb 91.1 % (94-100); MINUTE VOLUME 8 L/min; PATIENT TEMPERATURE 36.8; PEEP 10 cm H2O; RESPIRATORY RATE 22 b/min; RESPIRATORY RATE (OBSERVED) 22 b/min; TOTAL HEMOGLOBIN 9.8 G/dl (12.0-16.0)
[2019-01-29] MEDS: NORepinephrine 8mg/ 250ml NS 250 ML IV SCH (05:55)
--- NOTE | 2019-01-29 06:30 | NUR ---
Problems reprioritized. Patient report given, questions answered & plan of care reviewed with Tu STAPLES.
[2019-01-29] MEDS: pantoprazole 40 MG vial IV SCH ×2 (08:04→20:21)
[2019-01-29] MEDS: aripiprazole 5mg tablet PO SCH (08:04)
[2019-01-29] MEDS: levoTHYROXINE 25mcg tablet PO SCH (08:04)
[2019-01-29] MEDS: lactobacillus rhamnosus 10,000 MMU CELLS/CAPSULE PO SCH (08:04)
[2019-01-29] MEDS: quetiapine 100mg tablet PO SCH (08:04)
[2019-01-29] MEDS: fluvoxamine 25 MG tablet PO SCH (08:04)
[2019-01-29] MEDS: ferrous sulfate 325mg tablet PO SCH (08:04)
[2019-01-29] MEDS: valproate sod 250mg/5ml UD oral syrup CORPAK SCH (08:04)
[2019-01-29] MEDS: piperacillin/tazo 3.375gm/50ml 50 ML IV SCH ×3 (08:23→23:44)
--- NOTE | 2019-01-29 09:50 | NUR ---
(+) MDRO in sputum; patient placed in isolation; patient drowsy, but will educate when more alert.
--- NOTE | 2019-01-29 11:02 | NUR ---
DECREASE PEEP TO +[address] LOPEZ Addendum: 01/29/19 at 1103 [address] Carmen Gooden RT Amended: Links added.
[2019-01-29] MEDS ORDERED: acetaminophen 325mg/10.15ml oral unit dose solution OGT PRN ×2 (11:15→11:16)
[2019-01-29] MEDS ORDERED: dextrose ORAL solution 15 GM/59 ML bottle OGT PRN ×2 (11:16→11:17)
[2019-01-29] MEDS ORDERED: potassium Cl oral solution 20 MEQ/15 ML OGT PRN ×2 (11:21→11:22)
[2019-01-29] MEDS ORDERED: potassium Cl oral solution 20 MEQ/15 ML PO PRN (11:21)
--- NOTE | 2019-01-29 18:30 | NUR ---
Patient in room CICU 2011. I have received report from JHOAN Mae and had the opportunity to ask questions and assume patient care.
--- NOTE | 2019-01-29 18:38 | NUR ---
Problems reprioritized. Patient report given, questions answered & plan of care reviewed with Jenna STAPLES.
[2019-01-29] MEDS: lactobacillus rhamnosus 10,000 MMU CELLS/CAPSULE OGT SCH (20:22)
[2019-01-29] MEDS: fluvoxamine 25 MG tablet OGT SCH (20:22)
[2019-01-29] MEDS: quetiapine 100mg tablet OGT SCH (20:23)
[2019-01-29] MEDS: hydrOXYzine 25 MG tablet OGT SCH (20:29)
[2019-01-29] MEDS: valproate sod 250mg/5ml UD oral syrup OGT SCH (20:35)
[2019-01-30] VITALS (24 sets, daily range): BP systolic 89–152; BP diastolic 41–78
[2019-01-30] MEDS: mineral oil/petrolatum ophthal oint EACHEYE SCH ×4 (02:33→20:07)
[2019-01-30] MEDS: ipratropium/albuterol 3ml nebule NEB SCH ×6 (02:41→23:36)
[2019-01-30 02:59] LABS: BASOPHILS % (AUTO) 0.1 % (0-1); EOSINOPHILS # (AUTO) 0.1 X10'3 (0-0.9); EOSINOPHILS % (AUTO) 0.9 % (0-6); HEMATOCRIT 22.8 % (35.0-45.0); HEMOGLOBIN 7.6 g/dl (12.0-16.0); LYMPHOCYTES # (AUTO) 1.2 X10'3 (1.1-4.8); LYMPHOCYTES % (AUTO) 7.2 % (21-51); MEAN CORPUSCULAR HEMOGLOBIN 30.9 PG (27.0-31.0); MEAN CORPUSCULAR HGB CONC 33.5 g/dL (33.0-36.5); MEAN CORPUSCULAR VOLUME 92.2 FL (78-98); MEAN PLATELET VOLUME 8.5 FL (7.4-10.4); MONOCYTES # (AUTO) 1.2 X10'3 (0-0.9); MONOCYTES % (AUTO) 7.7 % (2-12); NEUTROPHILS # (AUTO) 13.5 X10'3 (1.8-7.7); NEUTROPHILS % (AUTO) 84.1 % (42-75); PLATELET COUNT 188 X10'3 (140-440); RED BLOOD COUNT 2.47 X10'6 (4.20-5.60); RED CELL DISTRIBUTION WIDTH 17.9 % (11.5-14.5); WHITE BLOOD COUNT 16.1 X10'3 (4.5-11.0)
[2019-01-30 03:01] LABS: ABG BASE EXCESS 7.3 mmol/L (-2.0-3.0); ABG HCO3 32.3 mmol/L (22.0-26.0); ABG OXYGEN SATURATION 88.3 % (95-98); ABG PCO2 (T) 50.4 mmHg (32.0-45.0); ABG PH (T) 7.428 (7.350-7.450); ALLEN'S TEST Positive; FCOHb 0.2 % (0.5-1.5); FMetHb 0.3 % (0.3-1.12); FO2Hb 87.9 % (94-100); MINUTE VOLUME 8 L/min; PATIENT TEMPERATURE 37.9; PEEP 8 cm H2O; RESPIRATORY RATE 22 b/min; RESPIRATORY RATE (OBSERVED) 22 b/min; TOTAL HEMOGLOBIN 7.9 G/dl (12.0-16.0)
[2019-01-30 03:05] LABS: ALANINE AMINOTRANSFERASE 7 U/L (12-78); ALBUMIN 0.9 G/DL (3.4-5.0); ALBUMIN/GLOBULIN RATIO 0.2 (1.1-1.5); ALKALINE PHOSPHATASE 73 IU/L (46-116); ANION GAP 1 (8-16); ASPARTATE AMINO TRANSFERASE 15 U/L (10-37); BILIRUBIN,TOTAL 0.1 MG/DL (0.1-1.0); BLOOD UREA NITROGEN 17 MG/DL (7-18); BUN/CREATININE RATIO 32.1 (6.6-38.0); CALCIUM 8.1 MG/DL (8.5-10.1); CHLORIDE 110 MMOL/L (99-107); CREATININE 0.53 MG/DL (0.40-0.90); GLUCOSE 99 MG/DL (70-104); PARTIAL THROMBOPLASTIN TIME 33 SECONDS (22-32); PHOSPHORUS 3.2 MG/DL (2.3-4.5); POTASSIUM 3.8 MMOL/L (3.5-5.1); SODIUM 143 MMOL/L (135-145); TOTAL CARBON DIOXIDE 32.4 MMOL/L (24-32); TOTAL PROTEIN 4.7 G/DL (6.4-8.2); eGFR > 90 ML/MIN
[2019-01-30 03:32] LABS: ANISOCYTOSIS 1+; PLATELET ESTIMATE NORMAL; TOTAL CELLS COUNTED 100
--- NOTE | 2019-01-30 06:28 | NUR ---
Problems reprioritized. Patient report given, questions answered & plan of care reviewed with JHOAN Mae.
[2019-01-30] MEDS: piperacillin/tazo 3.375gm/50ml 50 ML IV SCH (08:01)
[2019-01-30] MEDS: valproate sod 250mg/5ml UD oral syrup OGT SCH ×2 (08:02→20:07)
[2019-01-30] MEDS: ferrous sulfate 300mg/5ml UD oral liquid OGT SCH (08:02)
[2019-01-30] MEDS: pantoprazole 40 MG vial IV SCH ×2 (08:02→20:07)
[2019-01-30] MEDS: quetiapine 100mg tablet OGT SCH ×2 (08:03→20:07)
[2019-01-30] MEDS: fluvoxamine 25 MG tablet OGT SCH ×2 (08:03→20:07)
[2019-01-30] MEDS: aripiprazole 5mg tablet OGT SCH (08:03)
[2019-01-30] MEDS: lactobacillus rhamnosus 10,000 MMU CELLS/CAPSULE OGT SCH ×2 (08:03→20:07)
[2019-01-30] MEDS: levoTHYROXINE 25mcg tablet OGT SCH (08:03)
[2019-01-30] MEDS: meropenem inj 500 MG in normal saline 100ml IV soln 100 ML IV SCH ×3 (10:15→20:22)
--- NOTE | 2019-01-30 10:47 | NUR ---
Reassessment: Patient intubated, sedated. Receiving treatment for sepsis, pneumonia per MD note. Sodium is elevated WNL at 143 mg/dl. Stool output only smears daily on 01/26, 01/27, and 01/28. GRV are WNL except one at 250 ml on 01/28. Otherwise, tolerating well with tube feedings at goal rate of 65 ml/hr. Endoscopy showed no active GI bleed per bedside RN. Patient admitted from [place] with aspiration pneumonia and sepsis. Confused, history of schizophrenia. Will continue to follow. Recommend: 1. continuous TF per OG tube at goal rate of 65 ml/hr to provide 1560 ml, 1872 gilmar, 117 g protein, and 1265 ml water. 2. additional water flush 300 ml Q4H 3. daily wt, prealbumin q Saturday and 4. When extubated, BSS prior to diet advancement d/t dysphagia Addendum: 01/30/19 at [address] Amended: Links added.
[2019-01-30] MEDS: NORepinephrine 8mg/ 250ml NS 250 ML IV SCH (14:59)
--- NOTE | 2019-01-30 18:30 | NUR ---
Patient in room CICU 2011. I have received report from kecia rios and had the opportunity to ask questions and assume patient care.
--- NOTE | 2019-01-30 18:35 | NUR ---
Problems reprioritized. Patient report given, questions answered & plan of care reviewed with Mallory STAPLES.
[2019-01-30] MEDS: hydrOXYzine 25 MG tablet OGT SCH (20:07)
[2019-01-31] VITALS (24 sets, daily range): BP systolic 93–123; BP diastolic 35–58
[2019-01-31] MEDS: magnesium hydroxide 30ml (MOM) UD suspension OGT PRN (01:29)
[2019-01-31] MEDS: mineral oil/petrolatum ophthal oint EACHEYE SCH ×4 (01:30→20:22)
[2019-01-31] MEDS: meropenem inj 500 MG in normal saline 100ml IV soln 100 ML IV SCH ×4 (01:30→20:22)
--- NOTE | 2019-01-31 01:44 | NUR ---
pt moving around more and touching her abdomen. pt does not nod or mouth yes or no when asked if she is in pain. pt bowel sounds remain hypoactive, flatus present, however her abdomen is more firm on the right side both upper and lower quadrants. pt last recorded bm was on 01/27. milk of mag administered for constipation. will continue to monitor.
--- NOTE | 2019-01-31 02:30 | NUR ---
Patient in room CICU 2011. I have received report from JHOAN Tejada and had the opportunity to ask questions and assume patient care.
--- NOTE | 2019-01-31 02:31 | NUR ---
Problems reprioritized. Patient report given, questions answered & plan of care reviewed with jaziel rios.
[2019-01-31 02:41] LABS: BASOPHILS # (AUTO) 0.1 X10'3 (0-0.2); BASOPHILS % (AUTO) 0.6 % (0-1); EOSINOPHILS # (AUTO) 0.1 X10'3 (0-0.9); EOSINOPHILS % (AUTO) 0.8 % (0-6); HEMOGLOBIN 7.3 g/dl (12.0-16.0); LYMPHOCYTES # (AUTO) 1.3 X10'3 (1.1-4.8); MEAN CORPUSCULAR HEMOGLOBIN 31.5 PG (27.0-31.0); MEAN CORPUSCULAR HGB CONC 34.3 g/dL (33.0-36.5); MEAN CORPUSCULAR VOLUME 91.8 FL (78-98); MEAN PLATELET VOLUME 8.5 FL (7.4-10.4); MONOCYTES # (AUTO) 1.7 X10'3 (0-0.9); MONOCYTES % (AUTO) 15.8 % (2-12); NEUTROPHILS # (AUTO) 7.7 X10'3 (1.8-7.7); NEUTROPHILS % (AUTO) 70.8 % (42-75); PLATELET COUNT 176 X10'3 (140-440); RED BLOOD COUNT 2.31 X10'6 (4.20-5.60); RED CELL DISTRIBUTION WIDTH 17.7 % (11.5-14.5); WHITE BLOOD COUNT 10.9 X10'3 (4.5-11.0)
[2019-01-31 02:46] LABS: HEMATOCRIT 21.2 % (35.0-45.0)
[2019-01-31 02:55] LABS: PARTIAL THROMBOPLASTIN TIME 33 SECONDS (22-32)
[2019-01-31 02:58] LABS: ALANINE AMINOTRANSFERASE 8 U/L (12-78); ALBUMIN 0.9 G/DL (3.4-5.0); ALBUMIN/GLOBULIN RATIO 0.2 (1.1-1.5); ALKALINE PHOSPHATASE 67 IU/L (46-116); ANION GAP 2 (8-16); ASPARTATE AMINO TRANSFERASE 15 U/L (10-37); BILIRUBIN,TOTAL 0.2 MG/DL (0.1-1.0); BLOOD UREA NITROGEN 16 MG/DL (7-18); BUN/CREATININE RATIO 33.3 (6.6-38.0); CALCIUM 7.9 MG/DL (8.5-10.1); CHLORIDE 106 MMOL/L (99-107); CREATININE 0.48 MG/DL (0.40-0.90); GLUCOSE 94 MG/DL (70-104); PHOSPHORUS 3.5 MG/DL (2.3-4.5); POTASSIUM 3.5 MMOL/L (3.5-5.1); SODIUM 139 MMOL/L (135-145); TOTAL PROTEIN 4.8 G/DL (6.4-8.2); eGFR > 90 ML/MIN
--- NOTE | 2019-01-31 03:00 | NUR ---
Patient is awake and restless, able to follow commands. Rhythm: sinus tach, breath sounds: rhonchi in bilateral upper lobes, diminished in the bases; bowel sounds: normal. Normal pulses throughout. Patient on vent with PC setting, fio2: 40%, peep: 8, RR:22. Patient with foam restraints. Vital AF running at goal of 65 mL/hour, HOB at 30 degrees, maintaining aspiration precautions. patient with wallace draining yellow urine to gravity. patient with SCDs and foam boots on. Skin is mostly good throughout except excoriation in the gaby area. Patient extremities are edematous.
--- NOTE | 2019-01-31 03:15 | NUR ---
Brad Pham NP notified of critical hct. H/H 7.3/21.2. MAGICIAN HELPER ordered a type and screen with no transfusion at this time. Will continue to monitor.
[2019-01-31] MEDS: ipratropium/albuterol 3ml nebule NEB SCH ×6 (03:21→23:13)
[2019-01-31 03:35] LABS: ALLEN'S TEST Positive; MINUTE VOLUME 10 L/min; PATIENT TEMPERATURE 38.1; PEEP 8 cm H2O; RESPIRATORY RATE 22 b/min; RESPIRATORY RATE (OBSERVED) 30 b/min
[2019-01-31 03:36] LABS: ABG BASE EXCESS 5.6 mmol/L (-2.0-3.0); ABG HCO3 29.7 mmol/L (22.0-26.0); ABG OXYGEN SATURATION 89.4 % (95-98); ABG PCO2 (T) 43.3 mmHg (32.0-45.0); ABG PH (T) 7.457 (7.350-7.450); ABG PO2 (T) 61.5 mmHg (83-108); FCOHb 0.3 % (0.5-1.5); FMetHb 0.2 % (0.3-1.12); TOTAL HEMOGLOBIN 9.8 G/dl (12.0-16.0)
--- NOTE | 2019-01-31 06:16 | NUR ---
Problems reprioritized. Patient report given, questions answered & plan of care reviewed with JHOAN Moon.
[2019-01-31] MEDS: pantoprazole 40 MG vial IV SCH (07:25)
[2019-01-31] MEDS: ferrous sulfate 300mg/5ml UD oral liquid OGT SCH (07:25)
[2019-01-31] MEDS: levoTHYROXINE 25mcg tablet OGT SCH (07:25)
[2019-01-31] MEDS: valproate sod 250mg/5ml UD oral syrup OGT SCH ×2 (07:25→20:22)
[2019-01-31] MEDS: aripiprazole 5mg tablet OGT SCH (07:26)
[2019-01-31] MEDS: lactobacillus rhamnosus 10,000 MMU CELLS/CAPSULE OGT SCH ×2 (07:26→20:23)
[2019-01-31] MEDS: quetiapine 100mg tablet OGT SCH ×2 (07:26→20:23)
[2019-01-31] MEDS: fluvoxamine 25 MG tablet OGT SCH ×2 (07:26→20:23)
[2019-01-31] MEDS: dextrose 50%-water 50ml dispensing syringe IV PRN (07:26)
[2019-01-31 07:41] LABS: TOTAL CELLS COUNTED 100
[2019-01-31 07:43] LABS: ANISOCYTOSIS 1+; PLATELET ESTIMATE NORMAL
[2019-01-31] MEDS ORDERED: epoetin 20,000 units/ml inj SQ ONE (10:35)
[2019-01-31] MEDS: midazolam 2 mg/2 ml injection IV PRN ×2 (14:06→18:07)
--- NOTE | 2019-01-31 18:25 | NUR ---
Problems reprioritized. Patient report given, questions answered & plan of care reviewed with George STAPLES.
--- NOTE | 2019-01-31 18:26 | NUR ---
Patient in room CICU 2011. I have received report from JHOAN Otto and had the opportunity to ask questions and assume patient care.
[2019-01-31] MEDS: ESOMEPRAZOLE 40 MG VIAL IV SCH (20:22)
[2019-01-31] MEDS: hydrOXYzine 25 MG tablet OGT SCH (20:23)
[2019-01-31] MEDS: NORepinephrine 8mg/ 250ml NS 250 ML IV SCH (20:29)
[2019-02-01] VITALS (25 sets, daily range): BP systolic 97–151; BP diastolic 45–132
[2019-02-01] MEDS ORDERED: etomidate 2mg/ml inj. IV ONE (02:15)
[2019-02-01] MEDS ORDERED: rocuronium 10mg/ml inj IV ONE ×2 (02:15→08:00)
[2019-02-01] MEDS: ipratropium/albuterol 3ml nebule NEB SCH ×6 (02:47→23:30)
[2019-02-01] MEDS: dexmedetomidin/NS 400mcg/100ml 100 ML IV SCH (02:54)
[2019-02-01] MEDS: meropenem inj 500 MG in normal saline 100ml IV soln 100 ML IV SCH ×4 (02:58→19:57)
[2019-02-01 03:01] LABS: ABG BASE EXCESS 6.1 mmol/L (-2.0-3.0); ABG HCO3 32.6 mmol/L (22.0-26.0); ABG OXYGEN SATURATION 89.7 % (95-98); ABG PCO2 (T) 60.7 mmHg (32.0-45.0); ABG PO2 (T) 64.8 mmHg (83-108); ALLEN'S TEST Positive; FMetHb 0.2 % (0.3-1.12); FO2Hb 89.5 % (94-100); MINUTE VOLUME 8 L/min; PATIENT TEMPERATURE 37.5; PEEP 8 cm H2O; RESPIRATORY RATE 22 b/min; RESPIRATORY RATE (OBSERVED) 22 b/min; TOTAL HEMOGLOBIN 8.5 G/dl (12.0-16.0)
[2019-02-01 03:10] LABS: ALBUMIN 1.1 G/DL (3.4-5.0); ANION GAP 2 (8-16); BLOOD UREA NITROGEN 15 MG/DL (7-18); BUN/CREATININE RATIO 36.6 (6.6-38.0); CALCIUM 8.4 MG/DL (8.5-10.1); CHLORIDE 103 MMOL/L (99-107); CREATININE 0.41 MG/DL (0.40-0.90); GLUCOSE 95 MG/DL (70-104); HEMATOCRIT 23.7 % (35.0-45.0); HEMOGLOBIN 7.9 g/dl (12.0-16.0); MEAN CORPUSCULAR HEMOGLOBIN 30.9 PG (27.0-31.0); MEAN CORPUSCULAR HGB CONC 33.3 g/dL (33.0-36.5); MEAN CORPUSCULAR VOLUME 93.1 FL (78-98); MEAN PLATELET VOLUME 8.5 FL (7.4-10.4); PARTIAL THROMBOPLASTIN TIME 32 SECONDS (22-32); PLATELET COUNT 226 X10'3 (140-440); POTASSIUM 3.6 MMOL/L (3.5-5.1); RED BLOOD COUNT 2.54 X10'6 (4.20-5.60); RED CELL DISTRIBUTION WIDTH 17.5 % (11.5-14.5); SODIUM 138 MMOL/L (135-145); TOTAL CARBON DIOXIDE 33.2 MMOL/L (24-32); WHITE BLOOD COUNT 14.3 X10'3 (4.5-11.0); eGFR > 90 ML/MIN
[2019-02-01 03:28] LABS: ALANINE AMINOTRANSFERASE 8 U/L (12-78); ALBUMIN/GLOBULIN RATIO 0.3 (1.1-1.5); ALKALINE PHOSPHATASE 76 IU/L (46-116); ASPARTATE AMINO TRANSFERASE 20 U/L (10-37); BILIRUBIN,TOTAL 0.1 MG/DL (0.1-1.0); PHOSPHORUS 4.3 MG/DL (2.3-4.5); TOTAL PROTEIN 5.5 G/DL (6.4-8.2)
[2019-02-01] MEDS: mineral oil/petrolatum ophthal oint EACHEYE SCH ×4 (03:28→19:57)
--- NOTE | 2019-02-01 05:44 | NUR ---
Late post: 0115 Patient self extubated while I was in my other patient's room, witnessed by near by coworker. Patient was bagged at this time. 0135 Patient placed on bipap at 100%. Patient's sats remained in low/mid 70's. Brad Pham LIVESTOCK NUTRITION TERRITORY MANAGER at bedside made decision to have patient reintubated. 0155 Patient was reintubated by DR Cervantes. Brad Pham LIVESTOCK NUTRITION TERRITORY MANAGER order precedex for sedation.
[2019-02-01 06:17] LABS: TOTAL CELLS COUNTED 100
[2019-02-01 06:18] LABS: ANISOCYTOSIS 1+; PLATELET ESTIMATE NORMAL
--- NOTE | 2019-02-01 06:35 | NUR ---
Patient in room CICU 2012. I have received report from JHOAN West and had the opportunity to ask questions and assume patient care.
--- NOTE | 2019-02-01 06:38 | NUR ---
Problems reprioritized. Patient report given, questions answered & plan of care reviewed with JHOAN Smart.
[2019-02-01] MEDS ORDERED: 0.9 % SODIUM CHLORIDE 10 ML VIAL ONE (08:00)
[2019-02-01] MEDS ORDERED: etomidate 2mg/ml inj. ONE (08:00)
[2019-02-01] MEDS: ferrous sulfate 300mg/5ml UD oral liquid OGT SCH (09:09)
[2019-02-01] MEDS: valproate sod 250mg/5ml UD oral syrup OGT SCH ×2 (09:10→20:03)
[2019-02-01] MEDS: fluvoxamine 25 MG tablet OGT SCH ×2 (09:10→19:57)
[2019-02-01] MEDS: aripiprazole 5mg tablet OGT SCH (09:10)
[2019-02-01] MEDS: lactobacillus rhamnosus 10,000 MMU CELLS/CAPSULE OGT SCH ×2 (09:11→19:58)
[2019-02-01] MEDS: ESOMEPRAZOLE 40 MG VIAL IV SCH ×2 (09:11→19:57)
[2019-02-01] MEDS: levoTHYROXINE 25mcg tablet OGT SCH (09:11)
[2019-02-01] MEDS: quetiapine 100mg tablet OGT SCH ×2 (09:11→19:58)
[2019-02-01] MEDS: midazolam 2 mg/2 ml injection IV PRN ×2 (14:09→16:07)
--- NOTE | 2019-02-01 18:24 | NUR ---
Problems reprioritized. Patient report given, questions answered & plan of care reviewed with JHOAN Tejada.
--- NOTE | 2019-02-01 18:30 | NUR ---
Patient in room CICU 2011. I have received report and had the opportunity to ask questions and assume patient care.
[2019-02-01] MEDS: hydrOXYzine 25 MG tablet OGT SCH (20:03)
[2019-02-02] VITALS (20 sets, daily range): BP systolic 98–122; BP diastolic 42–78
[2019-02-02] MEDS: mineral oil/petrolatum ophthal oint EACHEYE SCH ×4 (01:01→20:27)
[2019-02-02] MEDS: meropenem inj 500 MG in normal saline 100ml IV soln 100 ML IV SCH ×4 (01:01→20:27)
[2019-02-02 01:47] LABS: ALANINE AMINOTRANSFERASE 9 U/L (12-78); ALBUMIN/GLOBULIN RATIO 0.2 (1.1-1.5); ALKALINE PHOSPHATASE 75 IU/L (46-116); ANION GAP 1 (8-16); ASPARTATE AMINO TRANSFERASE 19 U/L (10-37); BILIRUBIN,TOTAL 0.2 MG/DL (0.1-1.0); BLOOD UREA NITROGEN 13 MG/DL (7-18); BUN/CREATININE RATIO 29.5 (6.6-38.0); CHLORIDE 103 MMOL/L (99-107); CREATININE 0.44 MG/DL (0.40-0.90); GLUCOSE 108 MG/DL (70-104); POTASSIUM 3.9 MMOL/L (3.5-5.1); SODIUM 136 MMOL/L (135-145); TOTAL CARBON DIOXIDE 32.4 MMOL/L (24-32); TOTAL PROTEIN 5.2 G/DL (6.4-8.2); eGFR > 90 ML/MIN
[2019-02-02 02:02] LABS: BASOPHILS # (AUTO) 0.1 X10'3 (0-0.2); BASOPHILS % (AUTO) 0.5 % (0-1); EOSINOPHILS # (AUTO) 0.1 X10'3 (0-0.9); EOSINOPHILS % (AUTO) 0.9 % (0-6); HEMATOCRIT 22.2 % (35.0-45.0); HEMOGLOBIN 7.4 g/dl (12.0-16.0); LYMPHOCYTES # (AUTO) 2.1 X10'3 (1.1-4.8); LYMPHOCYTES % (AUTO) 14.8 % (21-51); MEAN CORPUSCULAR HGB CONC 33.2 g/dL (33.0-36.5); MEAN CORPUSCULAR VOLUME 93.3 FL (78-98); MEAN PLATELET VOLUME 8.6 FL (7.4-10.4); MONOCYTES # (AUTO) 2.6 X10'3 (0-0.9); MONOCYTES % (AUTO) 18.1 % (2-12); NEUTROPHILS # (AUTO) 9.4 X10'3 (1.8-7.7); NEUTROPHILS % (AUTO) 65.7 % (42-75); PLATELET COUNT 305 X10'3 (140-440); RED BLOOD COUNT 2.38 X10'6 (4.20-5.60); RED CELL DISTRIBUTION WIDTH 17.5 % (11.5-14.5); WHITE BLOOD COUNT 14.2 X10'3 (4.5-11.0)
[2019-02-02 03:06] LABS: ABG BASE EXCESS 8.7 mmol/L (-2.0-3.0); ABG HCO3 33.2 mmol/L (22.0-26.0); ABG OXYGEN SATURATION 91.8 % (95-98); ABG PH (T) 7.468 (7.350-7.450); ABG PO2 (T) 63.3 mmHg (83-108); ALLEN'S TEST Positive; FCOHb 0.1 % (0.5-1.5); FMetHb 0.3 % (0.3-1.12); FO2Hb 91.4 % (94-100); MINUTE VOLUME 9 L/min; PATIENT TEMPERATURE 37.2; PEEP 8 cm H2O; RESPIRATORY RATE 22 b/min; RESPIRATORY RATE (OBSERVED) 27 b/min; TOTAL HEMOGLOBIN 8.2 G/dl (12.0-16.0)
[2019-02-02] MEDS: ipratropium/albuterol 3ml nebule NEB SCH ×6 (03:21→22:22)
[2019-02-02] MEDS: dexmedetomidin/NS 400mcg/100ml 100 ML IV SCH ×2 (04:36→20:25)
[2019-02-02 07:46] LABS: TOTAL CELLS COUNTED 100
[2019-02-02] MEDS: NORepinephrine 8mg/ 250ml NS 250 ML IV SCH (07:47)
[2019-02-02 07:49] LABS: ANISOCYTOSIS 1+; LARGE PLATELETS FEW; PLATELET ESTIMATE NORMAL; POLYCHROMASIA FEW
[2019-02-02] MEDS: quetiapine 100mg tablet OGT SCH ×2 (08:00→20:27)
[2019-02-02] MEDS: aripiprazole 5mg tablet OGT SCH (09:15)
[2019-02-02] MEDS: lactobacillus rhamnosus 10,000 MMU CELLS/CAPSULE OGT SCH ×2 (09:15→20:27)
[2019-02-02] MEDS: fluvoxamine 25 MG tablet OGT SCH ×2 (09:15→20:27)
[2019-02-02] MEDS: ESOMEPRAZOLE 40 MG VIAL IV SCH ×2 (09:15→20:25)
[2019-02-02] MEDS: levoTHYROXINE 25mcg tablet OGT SCH (09:16)
[2019-02-02] MEDS: valproate sod 250mg/5ml UD oral syrup OGT SCH ×2 (09:16→20:27)
[2019-02-02] MEDS: ferrous sulfate 300mg/5ml UD oral liquid OGT SCH (09:17)
--- NOTE | 2019-02-02 10:47 | NUR ---
reassessment: Pt tolerating TF at goal. LBM 01/27; TONIO d/w RN for routine bowel care per MD approval. Currently only MoM PRN given 01/31. Will continue to monitor. Recommend: 1. continuous TF per OG tube at goal rate of 65 ml/hr to provide 1560 ml, 1872 gilmar, 117 g protein, and 1265 ml water. 2. additional water flush 300 ml Q4H 3. daily wt, prealbumin q Saturday and 4. When extubated, BSS prior to diet advancement d/t dysphagia Addendum: 02/02/19 at 1048 by [address] Lopez RD Amended: Links added. Addendum: 02/02/19 at [address] Lopez [address] reassessment: Pt tolerating TF at goal. LBM 01/27; TONIO d/w RN for routine bowel care per MD approval. Currently only MoM PRN given 01/31. Will continue to monitor. Recommend: 1. continuous TF per OG tube at goal rate of 65 ml/hr to provide 1560 ml, 1872 gilmar, 117 g protein, and 1265 ml water. 2. additional water flush 300 ml Q4H 3. daily wt, prealbumin q Saturday and 4. When extubated, BSS prior to diet advancement d/t dysphagia 5. routine bowel care
[2019-02-02 11:17] LABS: PREALBUMIN 9.7 MG/DL (19-36)
--- NOTE | 2019-02-02 18:30 | NUR ---
Patient in room CICU 2011. I have received report from JHOAN Corbett and had the opportunity to ask questions and assume patient care.
[2019-02-02] MEDS: midazolam 2 mg/2 ml injection IV PRN ×5 (18:42→23:34)
[2019-02-02] MEDS: fentaNYL/PF 50MCG/1 ML 2ML syringe IV PRN ×4 (19:29→23:33)
[2019-02-02] MEDS: hydrOXYzine 25 MG tablet OGT SCH (20:27)
[2019-02-03] VITALS (27 sets, daily range): BP systolic 76–137; BP diastolic 40–65
[2019-02-03] MEDS: fentaNYL/PF 50MCG/1 ML 2ML syringe IV PRN ×5 (01:11→08:00)
--- NOTE | 2019-02-03 01:15 | NUR ---
Pt pushed Wallace catheter out while bearing down trying to urinate, wallace replaced.
[2019-02-03] MEDS: ipratropium/albuterol 3ml nebule NEB SCH ×6 (02:14→23:22)
[2019-02-03] MEDS: midazolam 2 mg/2 ml injection IV PRN ×4 (02:41→07:59)
[2019-02-03] MEDS: mineral oil/petrolatum ophthal oint EACHEYE SCH ×4 (02:45→20:17)
[2019-02-03] MEDS: meropenem inj 500 MG in normal saline 100ml IV soln 100 ML IV SCH ×4 (02:45→20:15)
[2019-02-03 02:49] LABS: BASOPHILS # (AUTO) 0.1 X10'3 (0-0.2); BASOPHILS % (AUTO) 0.4 % (0-1); EOSINOPHILS # (AUTO) 0.1 X10'3 (0-0.9); EOSINOPHILS % (AUTO) 0.6 % (0-6); LYMPHOCYTES # (AUTO) 2.1 X10'3 (1.1-4.8); LYMPHOCYTES % (AUTO) 15.9 % (21-51); MEAN CORPUSCULAR HEMOGLOBIN 30.8 PG (27.0-31.0); MEAN CORPUSCULAR HGB CONC 33.4 g/dL (33.0-36.5); MEAN CORPUSCULAR VOLUME 92.1 FL (78-98); MEAN PLATELET VOLUME 8.3 FL (7.4-10.4); MONOCYTES # (AUTO) 1.9 X10'3 (0-0.9); MONOCYTES % (AUTO) 14.4 % (2-12); NEUTROPHILS % (AUTO) 68.7 % (42-75); PLATELET COUNT 400 X10'3 (140-440); RED BLOOD COUNT 2.21 X10'6 (4.20-5.60); RED CELL DISTRIBUTION WIDTH 17.8 % (11.5-14.5); WHITE BLOOD COUNT 13.1 X10'3 (4.5-11.0)
[2019-02-03 02:56] LABS: HEMATOCRIT 20.3 % (35.0-45.0); HEMOGLOBIN 6.8 g/dl (12.0-16.0)
[2019-02-03 03:08] LABS: ALANINE AMINOTRANSFERASE 8 U/L (12-78); ALBUMIN/GLOBULIN RATIO 0.2 (1.1-1.5); ALKALINE PHOSPHATASE 72 IU/L (46-116); ANION GAP 1 (8-16); ASPARTATE AMINO TRANSFERASE 17 U/L (10-37); BILIRUBIN,TOTAL 0.1 MG/DL (0.1-1.0); BLOOD UREA NITROGEN 12 MG/DL (7-18); BUN/CREATININE RATIO 34.3 (6.6-38.0); CHLORIDE 105 MMOL/L (99-107); CREATININE 0.35 MG/DL (0.40-0.90); GLUCOSE 99 MG/DL (70-104); MAGNESIUM 1.4 MG/DL (1.5-2.4); PHOSPHORUS 3.8 MG/DL (2.3-4.5); POTASSIUM 3.9 MMOL/L (3.5-5.1); SODIUM 140 MMOL/L (135-145); TOTAL CARBON DIOXIDE 33.6 MMOL/L (24-32); TOTAL PROTEIN 5.2 G/DL (6.4-8.2); eGFR > 90 ML/MIN
[2019-02-03] MEDS: dexmedetomidin/NS 400mcg/100ml 100 ML IV SCH ×3 (03:37→21:39)
[2019-02-03] MEDS ORDERED: magnesium citrate 296ml oral solution PO ONE (03:45)
[2019-02-03 03:54] LABS: NUCLEATED RED BLOOD CELLS 1 /100WBC (0-0); TOTAL CELLS COUNTED 100
[2019-02-03 03:55] LABS: ANISOCYTOSIS 1+; PLATELET ESTIMATE NORMAL; POLYCHROMASIA FEW
[2019-02-03 04:16] LABS: ABG BASE EXCESS 7.4 mmol/L (-2.0-3.0); ABG OXYGEN SATURATION 90.2 % (95-98); ABG PCO2 (T) 51.6 mmHg (32.0-45.0); ABG PH (T) 7.422 (7.350-7.450); ABG PO2 (T) 59.1 mmHg (83-108); ALLEN'S TEST Positive; FCOHb 0.3 % (0.5-1.5); FMetHb 0.3 % (0.3-1.12); FO2Hb 89.7 % (94-100); MINUTE VOLUME 7 L/min; PATIENT TEMPERATURE 36.6; PEEP 8 cm H2O; RESPIRATORY RATE 22 b/min; RESPIRATORY RATE (OBSERVED) 24 b/min; TIDAL VOLUME 341 mL; TOTAL HEMOGLOBIN 9.5 G/dl (12.0-16.0)
--- NOTE | 2019-02-03 06:31 | NUR ---
Problems reprioritized. Patient report given, questions answered & plan of care reviewed with JHOAN Terry.
--- NOTE | 2019-02-03 06:53 | NUR ---
Patient in room CICU 2011. I have received report from Kerrie and had the opportunity to ask questions and assume patient care.
[2019-02-03] MEDS ORDERED: pyridoxine 50mg tablet PO SCH (08:00)
[2019-02-03] MEDS: ESOMEPRAZOLE 40 MG VIAL IV SCH ×2 (08:06→20:15)
[2019-02-03] MEDS: aripiprazole 5mg tablet OGT SCH (08:07)
[2019-02-03] MEDS: fluvoxamine 25 MG tablet OGT SCH ×2 (08:07→20:17)
[2019-02-03] MEDS: lactobacillus rhamnosus 10,000 MMU CELLS/CAPSULE OGT SCH ×2 (08:08→20:17)
[2019-02-03] MEDS: levoTHYROXINE 25mcg tablet OGT SCH (08:08)
[2019-02-03] MEDS: quetiapine 100mg tablet OGT SCH ×2 (08:08→20:16)
[2019-02-03] MEDS: ferrous sulfate 300mg/5ml UD oral liquid OGT SCH (08:08)
[2019-02-03] MEDS: valproate sod 250mg/5ml UD oral syrup OGT SCH ×2 (08:08→21:38)
[2019-02-03] MEDS: midazolam 100mg in NS 100ml 100 ML IV PRN (08:55)
[2019-02-03 11:28] LABS: BASOPHILS # (AUTO) 0.1 X10'3 (0-0.2); BASOPHILS % (AUTO) 0.5 % (0-1); EOSINOPHILS # (AUTO) 0.1 X10'3 (0-0.9); EOSINOPHILS % (AUTO) 0.6 % (0-6); HEMATOCRIT 26.5 % (35.0-45.0); HEMOGLOBIN 8.9 g/dl (12.0-16.0); LYMPHOCYTES # (AUTO) 1.7 X10'3 (1.1-4.8); LYMPHOCYTES % (AUTO) 11.9 % (21-51); MEAN CORPUSCULAR HEMOGLOBIN 29.5 PG (27.0-31.0); MEAN CORPUSCULAR HGB CONC 33.6 g/dL (33.0-36.5); MEAN CORPUSCULAR VOLUME 87.9 FL (78-98); MEAN PLATELET VOLUME 7.9 FL (7.4-10.4); MONOCYTES # (AUTO) 1.9 X10'3 (0-0.9); MONOCYTES % (AUTO) 13.2 % (2-12); NEUTROPHILS # (AUTO) 10.4 X10'3 (1.8-7.7); NEUTROPHILS % (AUTO) 73.8 % (42-75); PLATELET COUNT 414 X10'3 (140-440); RED BLOOD COUNT 3.01 X10'6 (4.20-5.60); RED CELL DISTRIBUTION WIDTH 19.4 % (11.5-14.5); WHITE BLOOD COUNT 14.2 X10'3 (4.5-11.0)
[2019-02-03] MEDS ORDERED: magnesium 4gm in 100ml NS 100 ML IV PRN (12:05)
[2019-02-03] MEDS ORDERED: magnesium 2GM in 50ml NS 50 ML IV PRN (12:05)
[2019-02-03] MEDS: nystatin 15 GM powder TP SCH ×2 (12:28→21:23)
[2019-02-03] MEDS: K and/or MAG REPLACEMENT MC SCH (12:29)
--- NOTE | 2019-02-03 12:50 | NUR ---
0900- Pt wide awake, highly agitated, appears scared, eyes wide, trying to talk, biting on ET tube, c/o pain. Spoke with MD, Ok to restart Fent and versed, Recheck h&h, nystatin powder for yeasty rash. Restarted versed at 2, and fent at 25. Patient appears much more comfortable. 1000 rounds completed- send sputum culture 1200- H&H 8.9 and 26.5, replacing mag IV. 1230- MD addressed no BM x 7 days, see orders.
[2019-02-03] MEDS: NORepinephrine 8mg/ 250ml NS 250 ML IV SCH (13:42)
[2019-02-03] MEDS: lactulose 20gm/30ml cup PO SCH ×2 (14:21→20:15)
[2019-02-03 15:21] LABS: ANISOCYTOSIS 2+; PLATELET ESTIMATE NORMAL; POLYCHROMASIA FEW; TOTAL CELLS COUNTED 100
--- NOTE | 2019-02-03 18:20 | NUR ---
Patient in room CICU 2011. I have received report from Day shift RN and had the opportunity to ask questions and assume patient care. Patient received orally intubated #7.5ETT @ 21 cm teeth. ETT secured with comfit.On AC PC mode FIO2 is 50% rate is 20 + 8 PEEP TV 256 at this time RR 20-22/mi OGT secured to ETT with tape. Position of OGT checked. Residual is 300 ml. Tube feedings off. air auscultated & placement is positive. Patient is on IV sedation Fentanyl/versed & precedex drips via right upper arm PICC line. Line is transduced via red port. CVP zeroed and reads 7. Patient is wakeful and cooperative at times. Moves all extremities MANNY @ 2mm and reactive to light.
[2019-02-03] MEDS ORDERED: docusate sodium 100mg/10ml UD cup PO SCH (20:00)
[2019-02-03] MEDS: polyethylene glycol 3350 17gm powd pack PO SCH (21:38)
[2019-02-03] MEDS ORDERED: dextrose 5%-1/2 normal saline 1,000 ML IV SCH (21:40)
--- NOTE | 2019-02-03 21:40 | NUR ---
Call placed to Edmund Pham regarding continued high residuals from OGT 400 at this time despite feedings being off for over 3 hours. Abdomen is large, distended with quiet bowl tone noted in left lower quadrant. Orders received tube feedings on hold, IVF & KUB ordered.
[2019-02-03] MEDS: hydrOXYzine 25 MG tablet OGT SCH (21:42)
[2019-02-04] VITALS (23 sets, daily range): BP systolic 83–144; BP diastolic 41–69
[2019-02-04] MEDS: mineral oil/petrolatum ophthal oint EACHEYE SCH ×4 (02:00→19:58)
--- NOTE | 2019-02-04 02:00 | NUR ---
went in to administer enema and found pt was in the middle of a large bm. bm is large soft green and semisolid. due to presence of stool, enema was not given.
[2019-02-04] MEDS: ipratropium/albuterol 3ml nebule NEB SCH ×6 (03:17→23:15)
[2019-02-04 04:17] LABS: MAGNESIUM 1.7 MG/DL (1.5-2.4)
[2019-02-04] MEDS: meropenem inj 500 MG in normal saline 100ml IV soln 100 ML IV SCH ×4 (04:17→19:58)
[2019-02-04] MEDS: lactulose 20gm/30ml cup PO SCH ×4 (04:17→20:06)
[2019-02-04 05:26] LABS: ABG HCO3 34.8 mmol/L (22.0-26.0); ABG OXYGEN SATURATION 89.8 % (95-98); ABG PCO2 (T) 54.1 mmHg (32.0-45.0); ABG PH (T) 7.426 (7.350-7.450); ABG PO2 (T) 57.3 mmHg (83-108); ALLEN'S TEST Positive; FCOHb 0.3 % (0.5-1.5); FMetHb 0.1 % (0.3-1.12); FO2Hb 89.4 % (94-100); MINUTE VOLUME 5 L/min; PATIENT TEMPERATURE 36.9; PEEP 8 cm H2O; RESPIRATORY RATE 20 b/min; RESPIRATORY RATE (OBSERVED) 20 b/min; TOTAL HEMOGLOBIN 10.5 G/dl (12.0-16.0)
--- NOTE | 2019-02-04 06:15 | NUR ---
Problems reprioritized. Patient report given, questions answered & plan of care reviewed with Mara STAPLES.
[2019-02-04 07:20] LABS: ALANINE AMINOTRANSFERASE 9 U/L (12-78); ALBUMIN/GLOBULIN RATIO 0.2 (1.1-1.5); ALKALINE PHOSPHATASE 78 IU/L (46-116); ANION GAP 3 (8-16); ASPARTATE AMINO TRANSFERASE 17 U/L (10-37); BILIRUBIN,TOTAL 0.1 MG/DL (0.1-1.0); BLOOD UREA NITROGEN 10 MG/DL (7-18); BUN/CREATININE RATIO 31.3 (6.6-38.0); CALCIUM 8.5 MG/DL (8.5-10.1); CHLORIDE 104 MMOL/L (99-107); CREATININE 0.32 MG/DL (0.40-0.90); GLUCOSE 114 MG/DL (70-104); SODIUM 139 MMOL/L (135-145); TOTAL CARBON DIOXIDE 32.4 MMOL/L (24-32); TOTAL PROTEIN 5.4 G/DL (6.4-8.2); eGFR > 90 ML/MIN
[2019-02-04] MEDS: lactobacillus rhamnosus 10,000 MMU CELLS/CAPSULE OGT SCH ×2 (08:00→20:06)
[2019-02-04] MEDS: nystatin 15 GM powder TP SCH ×3 (08:00→20:08)
[2019-02-04] MEDS: fluvoxamine 25 MG tablet OGT SCH ×2 (08:00→20:06)
[2019-02-04] MEDS: K and/or MAG REPLACEMENT MC SCH (08:00)
[2019-02-04] MEDS: pyridoxine 50mg tablet OGT SCH (08:00)
[2019-02-04] MEDS: docusate sodium 100mg/10ml UD cup OGT SCH ×2 (08:00→20:06)
[2019-02-04] MEDS: quetiapine 100mg tablet OGT SCH ×2 (08:00→20:06)
[2019-02-04] MEDS: ferrous sulfate 300mg/5ml UD oral liquid OGT SCH (08:00)
[2019-02-04 08:52] LABS: BASOPHILS # (AUTO) 0.2 X10'3 (0-0.2); BASOPHILS % (AUTO) 1.4 % (0-1); EOSINOPHILS # (AUTO) 0.1 X10'3 (0-0.9); EOSINOPHILS % (AUTO) 0.8 % (0-6); HEMATOCRIT 27.2 % (35.0-45.0); HEMOGLOBIN 9.3 g/dl (12.0-16.0); LYMPHOCYTES # (AUTO) 1.9 X10'3 (1.1-4.8); LYMPHOCYTES % (AUTO) 12.4 % (21-51); MEAN CORPUSCULAR HEMOGLOBIN 30.4 PG (27.0-31.0); MEAN CORPUSCULAR HGB CONC 34.1 g/dL (33.0-36.5); MEAN CORPUSCULAR VOLUME 89.2 FL (78-98); MONOCYTES # (AUTO) 1.4 X10'3 (0-0.9); MONOCYTES % (AUTO) 9.2 % (2-12); NEUTROPHILS # (AUTO) 11.6 X10'3 (1.8-7.7); NEUTROPHILS % (AUTO) 76.2 % (42-75); PLATELET COUNT 568 X10'3 (140-440); RED BLOOD COUNT 3.05 X10'6 (4.20-5.60); RED CELL DISTRIBUTION WIDTH 19.4 % (11.5-14.5); WHITE BLOOD COUNT 15.2 X10'3 (4.5-11.0)
[2019-02-04] MEDS: ESOMEPRAZOLE 40 MG VIAL IV SCH ×2 (09:01→20:05)
[2019-02-04] MEDS: aripiprazole 5mg tablet OGT SCH (09:02)
[2019-02-04] MEDS: valproate sod 250mg/5ml UD oral syrup OGT SCH ×2 (09:02→20:06)
[2019-02-04] MEDS: levoTHYROXINE 25mcg tablet OGT SCH (09:25)
[2019-02-04] MEDS: magnesium hydroxide 30ml (MOM) UD suspension OGT PRN (09:25)
--- NOTE | 2019-02-04 10:22 | NUR ---
07-Received report from Carolina. TF on hold, Residual check < 10, flushed with 200 cc Free water. 729- Patient a platelet clumper, send a blue tube with CBC's. 899- placed NG to suction to decompress, 300 cc gastric contents out, water mixed with tube feed. 929- Suction stopped, admin morning meds. 1000- Rounds, Ok to resume TF, soap suds enemas til BM.
--- NOTE | 2019-02-04 11:21 | NUR ---
1100- soap suds enema administered in a Hoang flush fashion, some flakes of stool, no real results, vault checked, empty, will repeat later in shift if no results. Restarted TF at 30 and TKO'd IV fluid.
--- NOTE | 2019-02-04 11:35 | NUR ---
reassessment: Pt's tube feeding turned off last night d/t high gastric residual volume per protocol. No BM in 8 days, RN discussed at rounds. Pt receiving lactulose, miralax, and colace and now pending soap zoe enema. Higher gastric residual volume likely r/t lack of BM. Per MD tube feeding will restart at trickle rate. KUB resulted in no bowel obstruction but does reveal fecal matter in the colon. Will continue to monitor. Recommend: 1. continuous TF per OG tube as able at goal rate of 65 ml/hr to provide 1560 ml, 1872 gilmar, 117 g protein, and 1265 ml water. 2. additional water flush 200 ml Q4H 3. daily wt, prealbumin q Saturday and 4. When extubated, BSS prior to diet advancement d/t dysphagia 5. routine bowel care; more aggressive now d/t no BM in 8 days Addendum: 02/04/19 at [address] Amended: Links added.
[2019-02-04] MEDS: dexmedetomidin/NS 400mcg/100ml 100 ML IV SCH (12:31)
[2019-02-04] MEDS: NORepinephrine 8mg/ 250ml NS 250 ML IV SCH (12:32)
[2019-02-04] MEDS ORDERED: methylnaltrexone br 12mg/0.6ml inj***SubQ only SQ ONE (14:55)
[2019-02-04] MEDS ORDERED: magnesium citrate 296ml oral solution PO ONE (14:55)
[2019-02-04] MEDS: FENTANYL-0.9 % NACL/PF 100 ML IV PRN (17:05)
[2019-02-04] MEDS: midazolam 100mg in NS 100ml 100 ML IV PRN (17:06)
--- NOTE | 2019-02-04 18:25 | NUR ---
Patient in room CICU 2011. I have received report from jamey rios and had the opportunity to ask questions and assume patient care.
[2019-02-04] MEDS: polyethylene glycol 3350 17gm powd pack PO SCH (20:05)
[2019-02-04] MEDS: hydrOXYzine 25 MG tablet OGT SCH (20:07)
[2019-02-05] VITALS (24 sets, daily range): BP systolic 91–131; BP diastolic 43–65
[2019-02-05] MEDS: meropenem inj 500 MG in normal saline 100ml IV soln 100 ML IV SCH ×4 (01:46→20:26)
[2019-02-05] MEDS: lactulose 20gm/30ml cup PO SCH ×5 (01:46→23:10)
[2019-02-05] MEDS: mineral oil/petrolatum ophthal oint EACHEYE SCH ×4 (01:46→20:26)
[2019-02-05 02:31] LABS: BASOPHILS # (AUTO) 0.1 X10'3 (0-0.2); EOSINOPHILS # (AUTO) 0.1 X10'3 (0-0.9); RED CELL DISTRIBUTION WIDTH 19.6 % (11.5-14.5)
[2019-02-05 02:34] LABS: BASOPHILS % (AUTO) 1.1 % (0-1); HEMOGLOBIN 9.1 g/dl (12.0-16.0); LYMPHOCYTES # (AUTO) 1.9 X10'3 (1.1-4.8); MEAN CORPUSCULAR HEMOGLOBIN 30.4 PG (27.0-31.0); MEAN CORPUSCULAR HGB CONC 33.9 g/dL (33.0-36.5); MEAN CORPUSCULAR VOLUME 89.7 FL (78-98); MEAN PLATELET VOLUME 7.8 FL (7.4-10.4); MONOCYTES # (AUTO) 0.9 X10'3 (0-0.9); MONOCYTES % (AUTO) 6.8 % (2-12); NEUTROPHILS # (AUTO) 10.4 X10'3 (1.8-7.7); NEUTROPHILS % (AUTO) 77.1 % (42-75); PLATELET COUNT 650 X10'3 (140-440); RED BLOOD COUNT 3.01 X10'6 (4.20-5.60); WHITE BLOOD COUNT 13.5 X10'3 (4.5-11.0)
[2019-02-05] MEDS: ipratropium/albuterol 3ml nebule NEB SCH ×6 (02:39→23:22)
[2019-02-05 02:42] LABS: PARTIAL THROMBOPLASTIN TIME 32 SECONDS (22-32)
[2019-02-05 02:46] LABS: ALANINE AMINOTRANSFERASE 10 U/L (12-78); ALBUMIN/GLOBULIN RATIO 0.2 (1.1-1.5); ALKALINE PHOSPHATASE 85 IU/L (46-116); ANION GAP -1 (8-16); ASPARTATE AMINO TRANSFERASE 17 U/L (10-37); BILIRUBIN,TOTAL 0.1 MG/DL (0.1-1.0); BLOOD UREA NITROGEN 7 MG/DL (7-18); BUN/CREATININE RATIO 17.5 (6.6-38.0); CALCIUM 8.6 MG/DL (8.5-10.1); CHLORIDE 105 MMOL/L (99-107); GLUCOSE 91 MG/DL (70-104); MAGNESIUM 1.6 MG/DL (1.5-2.4); POTASSIUM 3.9 MMOL/L (3.5-5.1); PREALBUMIN 9.1 MG/DL (19-36); SODIUM 139 MMOL/L (135-145); TOTAL PROTEIN 5.7 G/DL (6.4-8.2); eGFR > 90 ML/MIN
[2019-02-05 02:52] LABS: ANISOCYTOSIS 2+; HYPOCHROMASIA 1+; PLATELET ESTIMATE INCREASED
[2019-02-05 03:00] LABS: ABG BASE EXCESS 8.2 mmol/L (-2.0-3.0); ABG HCO3 34.3 mmol/L (22.0-26.0); ABG OXYGEN SATURATION 88.1 % (95-98); ABG PCO2 (T) 56.4 mmHg (32.0-45.0); ABG PH (T) 7.402 (7.350-7.450); ABG PO2 (T) 56.3 mmHg (83-108); ALLEN'S TEST Positive; FCOHb 0.3 % (0.5-1.5); FMetHb 0.1 % (0.3-1.12); FO2Hb 87.7 % (94-100); MINUTE VOLUME 5 L/min; PEEP 8 cm H2O; RESPIRATORY RATE 20 b/min; RESPIRATORY RATE (OBSERVED) 22 b/min; TIDAL VOLUME 256 mL; TOTAL HEMOGLOBIN 10.2 G/dl (12.0-16.0)
--- NOTE | 2019-02-05 06:02 | NUR ---
supposed to be entered on 02/05/19
--- NOTE | 2019-02-05 06:02 | NUR ---
wrong day Addendum: 02/05/19 at 0602 by Mallory Young RN entry on 02/04 at 0200 was
--- NOTE | 2019-02-05 06:30 | NUR ---
Patient in room CICU 2011. I have received report from JHOAN Tejada and had the opportunity to ask questions and assume patient care.
[2019-02-05] MEDS: aripiprazole 5mg tablet OGT SCH (07:17)
[2019-02-05] MEDS: ESOMEPRAZOLE 40 MG VIAL IV SCH ×2 (07:17→20:23)
[2019-02-05] MEDS: fluvoxamine 25 MG tablet OGT SCH ×2 (07:17→20:24)
[2019-02-05] MEDS: ferrous sulfate 300mg/5ml UD oral liquid OGT SCH (07:17)
[2019-02-05] MEDS: valproate sod 250mg/5ml UD oral syrup OGT SCH ×2 (07:17→20:27)
[2019-02-05] MEDS: docusate sodium 100mg/10ml UD cup OGT SCH ×2 (07:17→20:22)
[2019-02-05] MEDS: lactobacillus rhamnosus 10,000 MMU CELLS/CAPSULE OGT SCH ×2 (07:17→20:21)
[2019-02-05] MEDS: pyridoxine 50mg tablet OGT SCH (07:18)
[2019-02-05] MEDS: levoTHYROXINE 25mcg tablet OGT SCH (07:18)
[2019-02-05] MEDS: nystatin 15 GM powder TP SCH ×3 (07:18→21:00)
[2019-02-05] MEDS: quetiapine 100mg tablet OGT SCH ×2 (07:18→20:25)
[2019-02-05] MEDS: dextrose 50%-water 50ml dispensing syringe IV PRN (07:53)
[2019-02-05] MEDS: K and/or MAG REPLACEMENT MC SCH (08:00)
[2019-02-05] MEDS: normal saline 1000ml 1,000 ML IV SCH (11:03)
[2019-02-05] MEDS: NORepinephrine 8mg/ 250ml NS 250 ML IV SCH (13:13)
[2019-02-05] MEDS: dexmedetomidin/NS 400mcg/100ml 100 ML IV SCH (13:14)
--- NOTE | 2019-02-05 18:20 | NUR ---
Problems reprioritized. Patient report given, questions answered & plan of care reviewed with JHOAN West.
--- NOTE | 2019-02-05 18:30 | NUR ---
Patient in room CICU 2012. I have received report from JHOAN Wahl and had the opportunity to ask questions and assume patient care.
[2019-02-05] MEDS: hydrOXYzine 25 MG tablet OGT SCH (20:27)
[2019-02-05] MEDS: polyethylene glycol 3350 17gm powd pack PO SCH (20:27)
[2019-02-06] VITALS (23 sets, daily range): BP systolic 86–131; BP diastolic 35–73
[2019-02-06] MEDS: dexmedetomidin/NS 400mcg/100ml 100 ML IV SCH ×2 (00:10→14:04)
[2019-02-06] MEDS: mineral oil/petrolatum ophthal oint EACHEYE SCH ×4 (02:16→19:46)
[2019-02-06] MEDS: meropenem inj 500 MG in normal saline 100ml IV soln 100 ML IV SCH ×2 (02:16→08:37)
[2019-02-06] MEDS: ipratropium/albuterol 3ml nebule NEB SCH ×6 (03:04→23:07)
[2019-02-06 03:35] LABS: BASOPHILS # (AUTO) 0.1 X10'3 (0-0.2); BASOPHILS % (AUTO) 0.7 % (0-1); EOSINOPHILS # (AUTO) 0.2 X10'3 (0-0.9); EOSINOPHILS % (AUTO) 1.7 % (0-6); HEMATOCRIT 25.1 % (35.0-45.0); HEMOGLOBIN 8.5 g/dl (12.0-16.0); LYMPHOCYTES # (AUTO) 1.3 X10'3 (1.1-4.8); LYMPHOCYTES % (AUTO) 11.3 % (21-51); MEAN CORPUSCULAR HEMOGLOBIN 30.3 PG (27.0-31.0); MEAN CORPUSCULAR HGB CONC 33.9 g/dL (33.0-36.5); MEAN CORPUSCULAR VOLUME 89.2 FL (78-98); MEAN PLATELET VOLUME 7.6 FL (7.4-10.4); MONOCYTES % (AUTO) 8.6 % (2-12); NEUTROPHILS # (AUTO) 9.2 X10'3 (1.8-7.7); NEUTROPHILS % (AUTO) 77.7 % (42-75); PLATELET COUNT 520 X10'3 (140-440); RED BLOOD COUNT 2.81 X10'6 (4.20-5.60); RED CELL DISTRIBUTION WIDTH 19.2 % (11.5-14.5); WHITE BLOOD COUNT 11.8 X10'3 (4.5-11.0)
[2019-02-06 03:36] LABS: ABG BASE EXCESS 5.4 mmol/L (-2.0-3.0); ABG HCO3 31.3 mmol/L (22.0-26.0); ABG OXYGEN SATURATION 92.5 % (95-98); ABG PCO2 (T) 51.7 mmHg (32.0-45.0); ABG PH (T) 7.398 (7.350-7.450); ALLEN'S TEST Positive; FCOHb 0.3 % (0.5-1.5); FMetHb 0.1 % (0.3-1.12); FO2Hb 92.1 % (94-100); MINUTE VOLUME 4 L/min; PATIENT TEMPERATURE 36.7; PEEP 8 cm H2O; RESPIRATORY RATE 20 b/min; RESPIRATORY RATE (OBSERVED) 20 b/min; TOTAL HEMOGLOBIN 10.4 G/dl (12.0-16.0)
[2019-02-06 03:48] LABS: ALANINE AMINOTRANSFERASE 8 U/L (12-78); ALBUMIN 0.8 G/DL (3.4-5.0); ALBUMIN/GLOBULIN RATIO 0.2 (1.1-1.5); ALKALINE PHOSPHATASE 73 IU/L (46-116); ANION GAP -1 (8-16); ASPARTATE AMINO TRANSFERASE 17 U/L (10-37); BILIRUBIN,TOTAL 0.1 MG/DL (0.1-1.0); BLOOD UREA NITROGEN 7 MG/DL (7-18); BUN/CREATININE RATIO 23.3 (6.6-38.0); CALCIUM 8.4 MG/DL (8.5-10.1); CHLORIDE 109 MMOL/L (99-107); GLUCOSE 95 MG/DL (70-104); MAGNESIUM 1.4 MG/DL (1.5-2.4); POTASSIUM 3.6 MMOL/L (3.5-5.1); SODIUM 142 MMOL/L (135-145); TOTAL CARBON DIOXIDE 33.8 MMOL/L (24-32); eGFR > 90 ML/MIN
--- NOTE | 2019-02-06 06:15 | NUR ---
Patient in room CICU 2011. I have received report from interactive producer and had the opportunity to ask questions and assume patient care.
--- NOTE | 2019-02-06 06:22 | NUR ---
Problems reprioritized. Patient report given, questions answered & plan of care reviewed with Georgie.
[2019-02-06] MEDS: normal saline 1000ml 1,000 ML IV SCH ×2 (06:55→14:10)
[2019-02-06 07:04] LABS: HYPOCHROMASIA 1+; LARGE PLATELETS FEW; PLATELET ESTIMATE INCREASED; POLYCHROMASIA 1+
[2019-02-06 07:05] LABS: ANISOCYTOSIS 2+
[2019-02-06] MEDS: K and/or MAG REPLACEMENT MC SCH (08:00)
[2019-02-06] MEDS: lactulose 20gm/30ml cup PO SCH (08:36)
[2019-02-06] MEDS: ferrous sulfate 300mg/5ml UD oral liquid OGT SCH (08:36)
[2019-02-06] MEDS: docusate sodium 100mg/10ml UD cup OGT SCH ×2 (08:37→19:47)
[2019-02-06] MEDS: levoTHYROXINE 25mcg tablet OGT SCH (08:38)
[2019-02-06] MEDS: quetiapine 100mg tablet OGT SCH ×2 (08:38→19:48)
[2019-02-06] MEDS: lactobacillus rhamnosus 10,000 MMU CELLS/CAPSULE OGT SCH ×2 (08:38→19:47)
[2019-02-06] MEDS: pyridoxine 50mg tablet OGT SCH (08:38)
[2019-02-06] MEDS: aripiprazole 5mg tablet OGT SCH (08:38)
[2019-02-06] MEDS: fluvoxamine 25 MG tablet OGT SCH ×2 (08:38→19:47)
[2019-02-06] MEDS: nystatin 15 GM powder TP SCH ×3 (08:39→20:33)
[2019-02-06] MEDS: valproate sod 250mg/5ml UD oral syrup OGT SCH ×2 (08:39→20:32)
[2019-02-06] MEDS: ESOMEPRAZOLE 40 MG VIAL IV SCH ×2 (08:39→19:45)
[2019-02-06] MEDS: magnesium Cl slow-release 64mg tablet PO PRN (09:15)
--- NOTE | 2019-02-06 11:58 | NUR ---
reassessment: Pt intubated and sedated. Continues treatment for pneumococcal pneumonia. Patient's tube feeding at goal rate at 65 ml/hr and meeting nutrition needs. With aggressive bowel care with lactulose, miralax, and colace patient finally had relief of stools with 5 bowel movements on 02/05 with the last two being large liquid stools after a few smears. GRVs are WNL per protocol. Pt continues with colace BID. Will continue to monitor. Recommend: 1. continuous TF per OG tube as able at goal rate of 65 ml/hr to provide 1560 ml, 1872 gilmar, 117 g protein, and 1265 ml water. 2. additional water flush 200 ml Q4H 3. daily wt, prealbumin q Saturday and 4. When extubated, BSS prior to diet advancement d/t dysphagia 5. Routine bowel care Addendum: 02/06/19 at [address] Amended: Links added.
[2019-02-06] MEDS: lactulose 20gm/30ml cup OGT SCH ×2 (14:00→19:47)
[2019-02-06] MEDS: midazolam 100mg in NS 100ml 100 ML IV PRN (14:03)
[2019-02-06] MEDS: FENTANYL-0.9 % NACL/PF 100 ML IV PRN (14:03)
[2019-02-06] MEDS: dextrose 50%-water 50ml dispensing syringe IV PRN (14:14)
--- NOTE | 2019-02-06 18:18 | NUR ---
Problems reprioritized. Patient report given, questions answered & plan of care reviewed with oncoming shift.
--- NOTE | 2019-02-06 18:23 | NUR ---
Patient in room CICU 2011. I have received report from JHOAN Jacques and had the opportunity to ask questions and assume patient care.
[2019-02-06] MEDS: hydrOXYzine 25 MG tablet OGT SCH (20:32)
[2019-02-06] MEDS: polyethylene glycol 3350 17gm powd pack OGT SCH (20:33)
[2019-02-06] MEDS: NORepinephrine 8mg/ 250ml NS 250 ML IV SCH (21:45)
[2019-02-07] VITALS (24 sets, daily range): BP systolic 77–163; BP diastolic 46–81
[2019-02-07] MEDS: dexmedetomidin/NS 400mcg/100ml 100 ML IV SCH ×2 (01:28→08:28)
[2019-02-07] MEDS: mineral oil/petrolatum ophthal oint EACHEYE SCH ×4 (01:28→21:01)
[2019-02-07] MEDS: lactulose 20gm/30ml cup OGT SCH ×4 (01:29→20:00)
[2019-02-07 03:06] LABS: BASOPHILS # (AUTO) 0.1 X10'3 (0-0.2); BASOPHILS % (AUTO) 0.7 % (0-1); EOSINOPHILS # (AUTO) 0.4 X10'3 (0-0.9); EOSINOPHILS % (AUTO) 3.1 % (0-6); HEMATOCRIT 25.7 % (35.0-45.0); HEMOGLOBIN 8.5 g/dl (12.0-16.0); LYMPHOCYTES # (AUTO) 1.5 X10'3 (1.1-4.8); LYMPHOCYTES % (AUTO) 12.7 % (21-51); MEAN CORPUSCULAR HEMOGLOBIN 29.7 PG (27.0-31.0); MEAN CORPUSCULAR HGB CONC 33.1 g/dL (33.0-36.5); MEAN CORPUSCULAR VOLUME 89.9 FL (78-98); MEAN PLATELET VOLUME 7.5 FL (7.4-10.4); MONOCYTES # (AUTO) 0.8 X10'3 (0-0.9); MONOCYTES % (AUTO) 7.2 % (2-12); NEUTROPHILS # (AUTO) 8.9 X10'3 (1.8-7.7); NEUTROPHILS % (AUTO) 76.3 % (42-75); PLATELET COUNT 513 X10'3 (140-440); RED BLOOD COUNT 2.86 X10'6 (4.20-5.60); RED CELL DISTRIBUTION WIDTH 19.7 % (11.5-14.5); WHITE BLOOD COUNT 11.7 X10'3 (4.5-11.0)
[2019-02-07 03:08] LABS: ALANINE AMINOTRANSFERASE 7 U/L (12-78); ALBUMIN 0.8 G/DL (3.4-5.0); ALBUMIN/GLOBULIN RATIO 0.2 (1.1-1.5); ALKALINE PHOSPHATASE 70 IU/L (46-116); ANION GAP 2 (8-16); ASPARTATE AMINO TRANSFERASE 13 U/L (10-37); BILIRUBIN,TOTAL 0.1 MG/DL (0.1-1.0); BLOOD UREA NITROGEN 7 MG/DL (7-18); BUN/CREATININE RATIO 24.1 (6.6-38.0); CALCIUM 7.7 MG/DL (8.5-10.1); CHLORIDE 108 MMOL/L (99-107); CREATININE 0.29 MG/DL (0.40-0.90); GLUCOSE 88 MG/DL (70-104); MAGNESIUM 1.2 MG/DL (1.5-2.4); POTASSIUM 3.7 MMOL/L (3.5-5.1); SODIUM 140 MMOL/L (135-145); TOTAL PROTEIN 5.1 G/DL (6.4-8.2); eGFR > 90 ML/MIN
[2019-02-07] MEDS: ipratropium/albuterol 3ml nebule NEB SCH ×6 (03:10→23:04)
[2019-02-07 03:36] LABS: ABG HCO3 34.7 mmol/L (22.0-26.0); ABG OXYGEN SATURATION 85.6 % (95-98); ABG PCO2 (T) 59.5 mmHg (32.0-45.0); ABG PH (T) 7.381 (7.350-7.450); ABG PO2 (T) 51.7 mmHg (83-108); ALLEN'S TEST Positive; FMetHb 0.3 % (0.3-1.12); FO2Hb 85.3 % (94-100); MINUTE VOLUME 6 L/min; PATIENT TEMPERATURE 36.5; PEEP 8 cm H2O; RESPIRATORY RATE 20 b/min; RESPIRATORY RATE (OBSERVED) 21 b/min; TOTAL HEMOGLOBIN 9.9 G/dl (12.0-16.0)
--- NOTE | 2019-02-07 06:24 | NUR ---
Problems reprioritized. Patient report given, questions answered & plan of care reviewed with JHOAN Poe.
[2019-02-07] MEDS: nystatin 15 GM powder TP SCH ×3 (09:29→21:03)
[2019-02-07] MEDS: aripiprazole 5mg tablet OGT SCH (09:29)
[2019-02-07] MEDS: lactobacillus rhamnosus 10,000 MMU CELLS/CAPSULE OGT SCH ×2 (09:29→21:03)
[2019-02-07] MEDS: ESOMEPRAZOLE 40 MG VIAL IV SCH ×2 (09:31→21:02)
[2019-02-07] MEDS: valproate sod 250mg/5ml UD oral syrup OGT SCH ×2 (09:31→21:02)
[2019-02-07] MEDS: ferrous sulfate 300mg/5ml UD oral liquid OGT SCH (09:31)
[2019-02-07] MEDS: docusate sodium 100mg/10ml UD cup OGT SCH ×2 (09:31→20:00)
[2019-02-07] MEDS: furosemide 20 MG/2 ML vial IV SCH ×2 (09:32→21:01)
[2019-02-07] MEDS: quetiapine 100mg tablet OGT SCH ×2 (09:32→21:02)
[2019-02-07] MEDS: levoTHYROXINE 25mcg tablet OGT SCH (09:32)
[2019-02-07] MEDS: fluvoxamine 25 MG tablet OGT SCH ×2 (09:32→21:03)
[2019-02-07] MEDS: pyridoxine 50mg tablet OGT SCH (09:33)
--- NOTE | 2019-02-07 12:53 | NUR ---
Patient is well sedated on fentanyl but BP is not tolerating it. Fentanyl turned off and Patient woke shortly later extremely agitated and at risk of hurting herself. Bolused with versed and stopped the fentanyl. Called DR erazo; Addendum: 02/07/19 at 1256 by Lui Campbell RN Orders to use a little levophed in order to sedate with fentanyl. IF it takes more then 2mcg, call her for new orders
[2019-02-07] MEDS: FENTANYL-0.9 % NACL/PF 100 ML IV PRN (16:41)
[2019-02-07] MEDS: magnesium Cl slow-release 64mg tablet PO PRN (16:42)
[2019-02-07] MEDS: hydrOXYzine 25 MG tablet OGT SCH (21:03)
[2019-02-07] MEDS: polyethylene glycol 3350 17gm powd pack OGT SCH (21:04)
[2019-02-07] MEDS: normal saline 1000ml 1,000 ML IV SCH (22:55)
[2019-02-08] VITALS (24 sets, daily range): BP systolic 81–127; BP diastolic 40–68
[2019-02-08] MEDS: FENTANYL-0.9 % NACL/PF 100 ML IV PRN ×3 (01:36→18:00)
[2019-02-08] MEDS: mineral oil/petrolatum ophthal oint EACHEYE SCH ×4 (01:41→20:20)
[2019-02-08] MEDS: lactulose 20gm/30ml cup OGT SCH ×4 (01:41→20:00)
[2019-02-08 03:05] LABS: ALBUMIN/GLOBULIN RATIO 0.2 (1.1-1.5); ALKALINE PHOSPHATASE 69 IU/L (46-116); ANION GAP -3 (8-16); ASPARTATE AMINO TRANSFERASE 11 U/L (10-37); BILIRUBIN,TOTAL 0.1 MG/DL (0.1-1.0); BLOOD UREA NITROGEN 11 MG/DL (7-18); BUN/CREATININE RATIO 39.3 (6.6-38.0); CALCIUM 8.7 MG/DL (8.5-10.1); CHLORIDE 106 MMOL/L (99-107); CREATININE 0.28 MG/DL (0.40-0.90); GLUCOSE 108 MG/DL (70-104); MAGNESIUM 1.3 MG/DL (1.5-2.4); POTASSIUM 4.1 MMOL/L (3.5-5.1); SODIUM 139 MMOL/L (135-145); TOTAL CARBON DIOXIDE 35.9 MMOL/L (24-32); TOTAL PROTEIN 5.8 G/DL (6.4-8.2); eGFR > 90 ML/MIN
[2019-02-08 03:11] LABS: BASOPHILS % (AUTO) 0.5 % (0-1); EOSINOPHILS # (AUTO) 0.4 X10'3 (0-0.9); HEMATOCRIT 24.3 % (35.0-45.0); HEMOGLOBIN 8.1 g/dl (12.0-16.0); LYMPHOCYTES # (AUTO) 1.3 X10'3 (1.1-4.8); LYMPHOCYTES % (AUTO) 17.5 % (21-51); MEAN CORPUSCULAR HEMOGLOBIN 30.4 PG (27.0-31.0); MEAN CORPUSCULAR HGB CONC 33.4 g/dL (33.0-36.5); MEAN CORPUSCULAR VOLUME 91.2 FL (78-98); MEAN PLATELET VOLUME 7.1 FL (7.4-10.4); MONOCYTES # (AUTO) 0.6 X10'3 (0-0.9); MONOCYTES % (AUTO) 8.2 % (2-12); NEUTROPHILS # (AUTO) 5.1 X10'3 (1.8-7.7); NEUTROPHILS % (AUTO) 68.8 % (42-75); PLATELET COUNT 416 X10'3 (140-440); RED BLOOD COUNT 2.66 X10'6 (4.20-5.60); RED CELL DISTRIBUTION WIDTH 18.9 % (11.5-14.5); WHITE BLOOD COUNT 7.4 X10'3 (4.5-11.0)
[2019-02-08] MEDS: ipratropium/albuterol 3ml nebule NEB SCH ×6 (03:22→23:07)
[2019-02-08 03:28] LABS: ALANINE AMINOTRANSFERASE 8 U/L (12-78)
[2019-02-08] MEDS: dexmedetomidin/NS 400mcg/100ml 100 ML IV SCH ×4 (03:30→20:25)
[2019-02-08 03:51] LABS: ABG BASE EXCESS 9.5 mmol/L (-2.0-3.0); ABG HCO3 37.1 mmol/L (22.0-26.0); ABG OXYGEN SATURATION 90.4 % (95-98); ABG PCO2 (T) 71.9 mmHg (32.0-45.0); ABG PH (T) 7.331 (7.350-7.450); ABG PO2 (T) 63.8 mmHg (83-108); ALLEN'S TEST Positive; FCOHb 0.3 % (0.5-1.5); FMetHb 0.3 % (0.3-1.12); FO2Hb 89.9 % (94-100); MINUTE VOLUME 4 L/min; PEEP 8 cm H2O; RESPIRATORY RATE 20 b/min; RESPIRATORY RATE (OBSERVED) 20 b/min; TOTAL HEMOGLOBIN 9.4 G/dl (12.0-16.0)
[2019-02-08] MEDS ORDERED: magnesium 4gm in 100ml NS 100 ML IV ONE (08:00)
[2019-02-08] MEDS: valproate sod 250mg/5ml UD oral syrup OGT SCH ×2 (09:03→20:23)
[2019-02-08] MEDS: ferrous sulfate 300mg/5ml UD oral liquid OGT SCH (09:03)
[2019-02-08] MEDS: docusate sodium 100mg/10ml UD cup OGT SCH ×2 (09:03→20:20)
[2019-02-08] MEDS: fluvoxamine 25 MG tablet OGT SCH ×2 (09:05→20:21)
[2019-02-08] MEDS: lactobacillus rhamnosus 10,000 MMU CELLS/CAPSULE OGT SCH ×2 (09:05→20:21)
[2019-02-08] MEDS: ESOMEPRAZOLE 40 MG VIAL IV SCH ×2 (09:05→20:20)
[2019-02-08] MEDS: levoTHYROXINE 25mcg tablet OGT SCH (09:05)
[2019-02-08] MEDS: quetiapine 100mg tablet OGT SCH ×2 (09:06→20:21)
[2019-02-08] MEDS: aripiprazole 5mg tablet OGT SCH (09:06)
[2019-02-08] MEDS: pyridoxine 50mg tablet OGT SCH (09:06)
[2019-02-08] MEDS: metoprolol tartrate 25mg tablet PO SCH ×2 (09:06→20:00)
[2019-02-08] MEDS: nystatin 15 GM powder TP SCH ×3 (09:07→20:23)
[2019-02-08] MEDS: normal saline 1000ml 1,000 ML IV SCH (10:39)
[2019-02-08] MEDS: acetaZOLAMIDE 250mg tablet PO SCH ×2 (11:20→20:22)
[2019-02-08] MEDS: midazolam 2 mg/2 ml injection IV PRN ×5 (13:19→23:04)
[2019-02-08] MEDS: furosemide 20 MG/2 ML vial IV SCH (16:07)
--- NOTE | 2019-02-08 18:21 | NUR ---
Problems reprioritized. Patient report given, questions answered & plan of care reviewed with oncoming shift.
--- NOTE | 2019-02-08 18:30 | NUR ---
Patient in room CICU 2011. I have received report from Georgie STAPLES and had the opportunity to ask questions and assume patient care.
--- NOTE | 2019-02-08 19:00 | NUR ---
Patient agitated and restless grabbing at nurse trying to pinch nurse and reaching for ETT tube. Will continue to monitor patient.
[2019-02-08] MEDS: hydrOXYzine 25 MG tablet OGT SCH (20:22)
[2019-02-08] MEDS: polyethylene glycol 3350 17gm powd pack OGT SCH (20:23)
[2019-02-09] VITALS (25 sets, daily range): BP systolic 70–131; BP diastolic 39–76
[2019-02-09] MEDS: FENTANYL-0.9 % NACL/PF 100 ML IV PRN ×3 (00:44→22:26)
[2019-02-09] MEDS: furosemide 20 MG/2 ML vial IV SCH ×2 (00:45→07:34)
[2019-02-09] MEDS: NORepinephrine 8mg/ 250ml NS 250 ML IV SCH (00:45)
[2019-02-09] MEDS: dexmedetomidin/NS 400mcg/100ml 100 ML IV SCH ×3 (00:45→10:52)
[2019-02-09] MEDS: midazolam 2 mg/2 ml injection IV PRN ×3 (00:45→08:02)
[2019-02-09] MEDS: mineral oil/petrolatum ophthal oint EACHEYE SCH ×4 (02:22→20:25)
[2019-02-09] MEDS: lactulose 20gm/30ml cup OGT SCH ×2 (02:22→07:33)
[2019-02-09 03:10] LABS: BASOPHILS # (AUTO) 0.1 X10'3 (0-0.2); BASOPHILS % (AUTO) 0.9 % (0-1); EOSINOPHILS # (AUTO) 0.4 X10'3 (0-0.9); EOSINOPHILS % (AUTO) 5.1 % (0-6); HEMATOCRIT 25.1 % (35.0-45.0); HEMOGLOBIN 8.2 g/dl (12.0-16.0); LYMPHOCYTES # (AUTO) 1.3 X10'3 (1.1-4.8); LYMPHOCYTES % (AUTO) 16.3 % (21-51); MEAN CORPUSCULAR HEMOGLOBIN 30.1 PG (27.0-31.0); MEAN CORPUSCULAR HGB CONC 32.6 g/dL (33.0-36.5); MEAN CORPUSCULAR VOLUME 92.4 FL (78-98); MEAN PLATELET VOLUME 7.7 FL (7.4-10.4); MONOCYTES # (AUTO) 0.5 X10'3 (0-0.9); MONOCYTES % (AUTO) 6.7 % (2-12); NEUTROPHILS # (AUTO) 5.8 X10'3 (1.8-7.7); PLATELET COUNT 427 X10'3 (140-440); RED BLOOD COUNT 2.72 X10'6 (4.20-5.60); RED CELL DISTRIBUTION WIDTH 18.9 % (11.5-14.5); WHITE BLOOD COUNT 8.2 X10'3 (4.5-11.0)
[2019-02-09 03:29] LABS: ALANINE AMINOTRANSFERASE 10 U/L (12-78); ALBUMIN 1.1 G/DL (3.4-5.0); ALBUMIN/GLOBULIN RATIO 0.2 (1.1-1.5); ALKALINE PHOSPHATASE 75 IU/L (46-116); ANION GAP 1 (8-16); ASPARTATE AMINO TRANSFERASE 16 U/L (10-37); BILIRUBIN,TOTAL 0.1 MG/DL (0.1-1.0); BLOOD UREA NITROGEN 13 MG/DL (7-18); BUN/CREATININE RATIO 32.5 (6.6-38.0); CALCIUM 8.8 MG/DL (8.5-10.1); CHLORIDE 106 MMOL/L (99-107); POTASSIUM 3.5 MMOL/L (3.5-5.1); SODIUM 140 MMOL/L (135-145); TOTAL CARBON DIOXIDE 33.4 MMOL/L (24-32); TOTAL PROTEIN 6.4 G/DL (6.4-8.2); eGFR > 90 ML/MIN
[2019-02-09 03:32] LABS: GLUCOSE 122 MG/DL (70-104)
[2019-02-09] MEDS: ipratropium/albuterol 3ml nebule NEB SCH ×6 (04:14→23:41)
--- NOTE | 2019-02-09 04:30 | NUR ---
Updated PA Roberto on patient current status, ABG and labs. WIll continue to monitor.
[2019-02-09 04:35] LABS: ABG BASE EXCESS 4.9 mmol/L (-2.0-3.0); ABG HCO3 33.1 mmol/L (22.0-26.0); ABG OXYGEN SATURATION 87.9 % (95-98); ABG PCO2 (T) 71.4 mmHg (32.0-45.0); ABG PH (T) 7.281 (7.350-7.450); ABG PO2 (T) 58.2 mmHg (83-108); ALLEN'S TEST Positive; FCOHb 0.2 % (0.5-1.5); FO2Hb 87.7 % (94-100); MINUTE VOLUME 8 L/min; PATIENT TEMPERATURE 36.5; PEEP 10 cm H2O; RESPIRATORY RATE 22 b/min; RESPIRATORY RATE (OBSERVED) 23 b/min; TOTAL HEMOGLOBIN 9.3 G/dl (12.0-16.0)
--- NOTE | 2019-02-09 06:30 | NUR ---
Patient in room CICU 2011. I have received report from JHOAN Hairston and had the opportunity to ask questions and assume patient care.
[2019-02-09] MEDS: nystatin 15 GM powder TP SCH ×3 (07:24→20:25)
[2019-02-09] MEDS: normal saline 1000ml 1,000 ML IV SCH (07:24)
[2019-02-09] MEDS: docusate sodium 100mg/10ml UD cup OGT SCH ×2 (07:32→20:00)
[2019-02-09] MEDS: valproate sod 250mg/5ml UD oral syrup OGT SCH ×2 (07:32→20:19)
[2019-02-09] MEDS: ferrous sulfate 300mg/5ml UD oral liquid OGT SCH (07:32)
[2019-02-09] MEDS: ESOMEPRAZOLE 40 MG VIAL IV SCH ×2 (07:33→20:25)
[2019-02-09] MEDS: fluvoxamine 25 MG tablet OGT SCH ×2 (07:33→20:00)
[2019-02-09] MEDS: aripiprazole 5mg tablet OGT SCH (07:33)
[2019-02-09] MEDS: levoTHYROXINE 25mcg tablet OGT SCH (07:33)
[2019-02-09] MEDS: acetaZOLAMIDE 250mg tablet PO SCH (07:34)
[2019-02-09] MEDS: quetiapine 100mg tablet OGT SCH ×2 (07:34→20:00)
[2019-02-09] MEDS: metoprolol tartrate 25mg tablet PO SCH ×2 (07:34→20:00)
[2019-02-09] MEDS: pyridoxine 50mg tablet OGT SCH (07:34)
[2019-02-09] MEDS: lactobacillus rhamnosus 10,000 MMU CELLS/CAPSULE OGT SCH ×2 (07:34→20:00)
--- NOTE | 2019-02-09 09:29 | NUR ---
Pt wide awake, big wide scared looking eyes. Pulling at restraints. Moving legs.
[2019-02-09] MEDS: midazolam 100mg in NS 100ml 100 ML IV PRN (10:44)
[2019-02-09] MEDS: furosemide inj 100 ML IV SCH (10:51)
[2019-02-09] MEDS: metolazone 2.5mg tablet PO SCH ×2 (10:52→20:00)
--- NOTE | 2019-02-09 11:52 | NUR ---
Pt with large amount of tube feeding in mouth. Tube feeding stopped. (+) auscultation. Residual checked = 100cc, lots of air.
--- NOTE | 2019-02-09 12:27 | NUR ---
reassessment: Pt intubated and sedated. Continues treatment for pneumococcal pneumonia. Patient's tube feeding at goal rate at 65 ml/hr and meeting nutrition needs. Pt fluid overloaded with anasarca per MD note and started on lasix. Patient is also receiving 200 ml water flush every four hours for hypernatremia, last elevated sodium on 01/29 at 148 mg/dl. With aggressive bowel care patient finally had relief of stools with 5 bowel movements on 02/05 with the last two being large liquid stools after a few smears. Another documented smear on 02/08, patient was started on relistor to keep routine bowel movements. GRVs are WNL per protocol. Pt continues with colace BID. Will continue to monitor. Recommend: 1. continuous TF per OG tube as able at goal rate of 65 ml/hr to provide 1560 ml, 1872 gilmar, 117 g protein, and 1265 ml water. 2. additional water flush 200 ml Q4H 3. daily wt, prealbumin q Saturday and 4. When extubated, BSS prior to diet advancement d/t dysphagia 5. Routine bowel care Addendum: 02/09/19 at [address] Amended: Links added.
[2019-02-09] MEDS ORDERED: lactulose 20gm/30ml cup OGT PRN (13:00)
[2019-02-09] MEDS: methylnaltrexone br 12mg/0.6ml inj***SubQ only SQ SCH (14:17)
--- NOTE | 2019-02-09 18:19 | NUR ---
Problems reprioritized. Patient report given, questions answered & plan of care reviewed with JHOAN Tejada.
--- NOTE | 2019-02-09 18:20 | NUR ---
Patient in room CICU 2011. I have received report from jayda rios and had the opportunity to ask questions and assume patient care.
[2019-02-09] MEDS ORDERED: metoclopramide 5 mg/ml inj IV ONE (20:15)
[2019-02-09] MEDS ORDERED: diphenhydrAMINE 50 mg/ml inj IV ONE (20:15)
[2019-02-09] MEDS: hydrOXYzine 25 MG tablet OGT SCH (20:19)
[2019-02-09] MEDS: polyethylene glycol 3350 17gm powd pack OGT SCH (20:19)
--- NOTE | 2019-02-09 20:21 | NUR ---
kub read. corpak coiled in stomach. pulled corpak pack and replaced. ONLINE TUTOR notified. pt npo. all po meds held until corpak placement confirmed. will continue to monitor
[2019-02-09 20:31] LABS: ALANINE AMINOTRANSFERASE 10 U/L (12-78); ALBUMIN 1.2 G/DL (3.4-5.0); ALBUMIN/GLOBULIN RATIO 0.2 (1.1-1.5); ALKALINE PHOSPHATASE 85 IU/L (46-116); ANION GAP 2 (8-16); ASPARTATE AMINO TRANSFERASE 18 U/L (10-37); BILIRUBIN,TOTAL 0.1 MG/DL (0.1-1.0); BLOOD UREA NITROGEN 13 MG/DL (7-18); BUN/CREATININE RATIO 31.7 (6.6-38.0); CHLORIDE 105 MMOL/L (99-107); CREATININE 0.41 MG/DL (0.40-0.90); POTASSIUM 3.6 MMOL/L (3.5-5.1); SODIUM 141 MMOL/L (135-145); TOTAL CARBON DIOXIDE 34.5 MMOL/L (24-32); TOTAL PROTEIN 6.8 G/DL (6.4-8.2); eGFR > 90 ML/MIN
[2019-02-09 20:37] LABS: GLUCOSE 92 MG/DL (70-104)
--- NOTE | 2019-02-09 23:11 | NUR ---
kub read by estella. loop still in stomach. pulled corpak back and replaced. new kub ordered for AM
[2019-02-10] VITALS (23 sets, daily range): BP systolic 88–129; BP diastolic 46–81
[2019-02-10] MEDS: furosemide inj 100 ML IV SCH ×2 (02:10→18:50)
[2019-02-10] MEDS: mineral oil/petrolatum ophthal oint EACHEYE SCH ×4 (02:11→19:33)
[2019-02-10 02:22] LABS: BASOPHILS # (AUTO) 0.1 X10'3 (0-0.2); BASOPHILS % (AUTO) 0.7 % (0-1); EOSINOPHILS # (AUTO) 0.5 X10'3 (0-0.9); EOSINOPHILS % (AUTO) 5.3 % (0-6); HEMATOCRIT 25.7 % (35.0-45.0); HEMOGLOBIN 8.6 g/dl (12.0-16.0); LYMPHOCYTES # (AUTO) 1.7 X10'3 (1.1-4.8); LYMPHOCYTES % (AUTO) 16.5 % (21-51); MEAN CORPUSCULAR HEMOGLOBIN 29.8 PG (27.0-31.0); MEAN CORPUSCULAR HGB CONC 33.3 g/dL (33.0-36.5); MEAN CORPUSCULAR VOLUME 89.3 FL (78-98); MEAN PLATELET VOLUME 7.2 FL (7.4-10.4); MONOCYTES # (AUTO) 0.8 X10'3 (0-0.9); MONOCYTES % (AUTO) 7.9 % (2-12); NEUTROPHILS % (AUTO) 69.6 % (42-75); PLATELET COUNT 453 X10'3 (140-440); RED BLOOD COUNT 2.88 X10'6 (4.20-5.60); RED CELL DISTRIBUTION WIDTH 17.9 % (11.5-14.5)
[2019-02-10 02:34] LABS: ALANINE AMINOTRANSFERASE 8 U/L (12-78); ALBUMIN 1.1 G/DL (3.4-5.0); ALBUMIN/GLOBULIN RATIO 0.2 (1.1-1.5); ALKALINE PHOSPHATASE 84 IU/L (46-116); ANION GAP 2 (8-16); ASPARTATE AMINO TRANSFERASE 20 U/L (10-37); BILIRUBIN,TOTAL 0.1 MG/DL (0.1-1.0); BLOOD UREA NITROGEN 12 MG/DL (7-18); BUN/CREATININE RATIO 28.6 (6.6-38.0); CALCIUM 9.1 MG/DL (8.5-10.1); CHLORIDE 104 MMOL/L (99-107); CREATININE 0.42 MG/DL (0.40-0.90); GLUCOSE 88 MG/DL (70-104); POTASSIUM 3.2 MMOL/L (3.5-5.1); SODIUM 140 MMOL/L (135-145); TOTAL CARBON DIOXIDE 33.9 MMOL/L (24-32); TOTAL PROTEIN 6.6 G/DL (6.4-8.2); eGFR > 90 ML/MIN
[2019-02-10] MEDS: potassium Cl 20mEq/100mL bag 100 ML IV PRN ×4 (03:00→16:47)
[2019-02-10] MEDS: ipratropium/albuterol 3ml nebule NEB SCH ×6 (03:18→23:06)
[2019-02-10 03:31] LABS: PARTIAL THROMBOPLASTIN TIME 31 SECONDS (22-32)
[2019-02-10 03:40] LABS: ABG BASE EXCESS 8.8 mmol/L (-2.0-3.0); ABG HCO3 34.2 mmol/L (22.0-26.0); ABG PCO2 (T) 51.1 mmHg (32.0-45.0); ABG PH (T) 7.443 (7.350-7.450); ABG PO2 (T) 63.6 mmHg (83-108); ALLEN'S TEST Positive; FCOHb 0.3 % (0.5-1.5); FMetHb 0.3 % (0.3-1.12); FO2Hb 91.4 % (94-100); MINUTE VOLUME 8 L/min; PATIENT TEMPERATURE 36.8; PEEP 10 cm H2O; RESPIRATORY RATE 22 b/min; RESPIRATORY RATE (OBSERVED) 22 b/min; TOTAL HEMOGLOBIN 10.2 G/dl (12.0-16.0)
[2019-02-10] MEDS: dexmedetomidin/NS 400mcg/100ml 100 ML IV SCH ×2 (04:37→13:55)
--- NOTE | 2019-02-10 06:30 | NUR ---
Patient in room CICU 2011. I have received report from JHOAN Tejada and had the opportunity to ask questions and assume patient care.
[2019-02-10] MEDS: dextrose 50%-water 50ml dispensing syringe IV PRN ×2 (06:38→11:45)
[2019-02-10] MEDS: metolazone 2.5mg tablet PO SCH (08:00)
[2019-02-10] MEDS: aripiprazole 5mg tablet OGT SCH (08:00)
[2019-02-10] MEDS: valproate sod 250mg/5ml UD oral syrup OGT SCH (08:00)
[2019-02-10] MEDS: pyridoxine 50mg tablet OGT SCH (08:00)
[2019-02-10] MEDS: quetiapine 100mg tablet OGT SCH (08:00)
[2019-02-10] MEDS: metoprolol tartrate 25mg tablet PO SCH (08:00)
[2019-02-10] MEDS: fluvoxamine 25 MG tablet OGT SCH (08:00)
[2019-02-10] MEDS: docusate sodium 100mg/10ml UD cup OGT SCH (08:00)
[2019-02-10] MEDS: ferrous sulfate 300mg/5ml UD oral liquid OGT SCH (08:00)
[2019-02-10] MEDS: ESOMEPRAZOLE 40 MG VIAL IV SCH ×2 (09:17→19:32)
[2019-02-10] MEDS: FENTANYL-0.9 % NACL/PF 100 ML IV PRN ×2 (09:18→22:03)
[2019-02-10] MEDS: nystatin 15 GM powder TP SCH ×3 (09:18→21:20)
[2019-02-10] MEDS: NORepinephrine 8mg/ 250ml NS 250 ML IV SCH (09:19)
[2019-02-10] MEDS: levoTHYROXINE 25mcg tablet OGT SCH (09:20)
[2019-02-10] MEDS: lactobacillus rhamnosus 10,000 MMU CELLS/CAPSULE OGT SCH ×2 (09:21→19:31)
--- NOTE | 2019-02-10 09:28 | NUR ---
IR at bedside to place Corpak.
[2019-02-10] MEDS ORDERED: acetaminophen 325mg/10.15ml oral unit dose solution CORPAK PRN (10:52)
[2019-02-10] MEDS ORDERED: dextrose ORAL solution 15 GM/59 ML bottle CORPAK PRN ×2 (10:53)
[2019-02-10] MEDS: normal saline 1000ml 1,000 ML IV SCH (10:55)
[2019-02-10] MEDS ORDERED: lactulose 20gm/30ml cup CORPAK PRN (10:55)
[2019-02-10] MEDS ORDERED: magnesium hydroxide 30ml (MOM) UD suspension CORPAK PRN (10:56)
[2019-02-10] MEDS: heparin, porcine 5000 units/ml vial SQ SCH ×2 (11:28→19:33)
[2019-02-10] MEDS: midazolam 100mg in NS 100ml 100 ML IV PRN (11:29)
--- NOTE | 2019-02-10 11:42 | NUR ---
CHANGED PT VENT SETTINGS PER MD ORDERS. CMV PC, RR 22 Pi 22, PEEP +8, 65 % FiO2 Addendum: 02/10/19 at 1144 by Carmen Gooden RT Amended: Links added.
--- NOTE | 2019-02-10 11:48 | NUR ---
F/u: Pt OG d/c and corpak placed since tube feeding coming out of mouth per RN. Corpak in stomach and pending new KUB to advance post-pyloric prior to TF restart per RN. Pt LBM 02/07 per RN on lactulose PRN, relistor, miralax HS. Will monitor for corpak verification and TF tolerance give no hx elevated residuals prior. Addendum: 02/10/19 at [address] Amended: Links added.
[2019-02-10 12:49] LABS: ALANINE AMINOTRANSFERASE 13 U/L (12-78); ALBUMIN/GLOBULIN RATIO 0.2 (1.1-1.5); ALKALINE PHOSPHATASE 72 IU/L (46-116); ANION GAP 5 (8-16); ASPARTATE AMINO TRANSFERASE 18 U/L (10-37); BILIRUBIN,TOTAL 0.1 MG/DL (0.1-1.0); BLOOD UREA NITROGEN 11 MG/DL (7-18); BUN/CREATININE RATIO 32.4 (6.6-38.0); CHLORIDE 106 MMOL/L (99-107); CREATININE 0.34 MG/DL (0.40-0.90); GLUCOSE 71 MG/DL (70-104); MAGNESIUM 1.2 MG/DL (1.5-2.4); POTASSIUM 3.1 MMOL/L (3.5-5.1); SODIUM 142 MMOL/L (135-145); TOTAL CARBON DIOXIDE 31.5 MMOL/L (24-32); TOTAL PROTEIN 5.7 G/DL (6.4-8.2); eGFR > 90 ML/MIN
--- NOTE | 2019-02-10 14:05 | NUR ---
Restarted TF at 20cc/hr. RD notified.
--- NOTE | 2019-02-10 18:12 | NUR ---
Problems reprioritized. Patient report given, questions answered & plan of care reviewed with JHOAN Mata.
--- NOTE | 2019-02-10 18:15 | NUR ---
Patient in room CICU 2011. I have received report from Debra STAPLES and had the opportunity to ask questions and assume patient care. Patient laying in bed, sedated on 75 mcg/hr of fentanyl/ and 3mg/hr of versed, intubated and saturating 91% on 60% FIO2 on A/C PC mode, PEEP of 8. HR in low 90s in sinus rhythm, patient wakes up anxious with tactile stimulus. Will continue to monitor patient.
[2019-02-10] MEDS: hydrOXYzine 25 MG tablet CORPAK SCH (19:31)
[2019-02-10] MEDS: quetiapine 100mg tablet CORPAK SCH (19:31)
[2019-02-10] MEDS: fluvoxamine 25 MG tablet CORPAK SCH (19:31)
[2019-02-10] MEDS: valproate sod 250mg/5ml UD oral syrup CORPAK SCH (19:32)
[2019-02-10] MEDS: docusate sodium 100mg/10ml UD cup CORPAK SCH (19:32)
[2019-02-10] MEDS: polyethylene glycol 3350 17gm powd pack CORPAK SCH (19:32)
[2019-02-10] MEDS: metolazone 2.5mg tablet CORPAK SCH (19:33)
[2019-02-10] MEDS: metoprolol tartrate 25mg tablet CORPAK SCH (20:00)
[2019-02-10] MEDS: magnesium 2GM in 50ml NS 50 ML IV PRN (21:52)
[2019-02-10 22:01] LABS: ANION GAP 2 (8-16); BLOOD UREA NITROGEN 11 MG/DL (7-18); BUN/CREATININE RATIO 25.6 (6.6-38.0); CALCIUM 8.4 MG/DL (8.5-10.1); CHLORIDE 104 MMOL/L (99-107); CREATININE 0.43 MG/DL (0.40-0.90); GLUCOSE 71 MG/DL (70-104); MAGNESIUM 1.2 MG/DL (1.5-2.4); POTASSIUM 3.6 MMOL/L (3.5-5.1); SODIUM 140 MMOL/L (135-145); TOTAL CARBON DIOXIDE 33.7 MMOL/L (24-32); eGFR > 90 ML/MIN
[2019-02-11] VITALS (25 sets, daily range): BP systolic 88–150; BP diastolic 41–69
--- NOTE | 2019-02-11 | NUR ---
Patient's residuals currently 250 with TF running only at 20ml/hr. Notified September Roberto DELIMER, informed that corpak is not in stomach and that IR placed corpak at bedside. DELIMER states to return current residual to stomach and to stop TF infusion at this time, states she will order KUB for AM.
[2019-02-11] MEDS: dexmedetomidin/NS 400mcg/100ml 100 ML IV SCH ×3 (00:29→19:57)
[2019-02-11] MEDS: magnesium 4gm in 100ml NS 100 ML IV PRN (00:29)
[2019-02-11] MEDS: mineral oil/petrolatum ophthal oint EACHEYE SCH ×4 (02:00→19:24)
[2019-02-11] MEDS: ipratropium/albuterol 3ml nebule NEB SCH ×6 (03:04→23:12)
[2019-02-11 03:21] LABS: BASOPHILS # (AUTO) 0.1 X10'3 (0-0.2); BASOPHILS % (AUTO) 1.2 % (0-1); EOSINOPHILS # (AUTO) 0.6 X10'3 (0-0.9); EOSINOPHILS % (AUTO) 6.2 % (0-6); HEMATOCRIT 26.6 % (35.0-45.0); HEMOGLOBIN 8.9 g/dl (12.0-16.0); LYMPHOCYTES % (AUTO) 20.2 % (21-51); MEAN CORPUSCULAR HEMOGLOBIN 29.6 PG (27.0-31.0); MEAN CORPUSCULAR HGB CONC 33.4 g/dL (33.0-36.5); MEAN CORPUSCULAR VOLUME 88.7 FL (78-98); MEAN PLATELET VOLUME 7.3 FL (7.4-10.4); MONOCYTES # (AUTO) 0.7 X10'3 (0-0.9); MONOCYTES % (AUTO) 6.9 % (2-12); NEUTROPHILS # (AUTO) 6.5 X10'3 (1.8-7.7); NEUTROPHILS % (AUTO) 65.5 % (42-75); PLATELET COUNT 467 X10'3 (140-440); RED CELL DISTRIBUTION WIDTH 18.2 % (11.5-14.5); WHITE BLOOD COUNT 9.9 X10'3 (4.5-11.0)
[2019-02-11 03:26] LABS: ABG BASE EXCESS 8.3 mmol/L (-2.0-3.0); ABG HCO3 33.1 mmol/L (22.0-26.0); ABG OXYGEN SATURATION 88.4 % (95-98); ABG PCO2 (T) 46.8 mmHg (32.0-45.0); ABG PH (T) 7.467 (7.350-7.450); ABG PO2 (T) 55.8 mmHg (83-108); ALLEN'S TEST Positive; FCOHb 0.1 % (0.5-1.5); FO2Hb 88.3 % (94-100); MINUTE VOLUME 8 L/min; PATIENT TEMPERATURE 36.8; PEEP 8 cm H2O; RESPIRATORY RATE 22 b/min; RESPIRATORY RATE (OBSERVED) 22 b/min; TIDAL VOLUME 356 mL; TOTAL HEMOGLOBIN 10.3 G/dl (12.0-16.0)
[2019-02-11 03:33] LABS: ALANINE AMINOTRANSFERASE 8 U/L (12-78); ALBUMIN 1.1 G/DL (3.4-5.0); ALBUMIN/GLOBULIN RATIO 0.2 (1.1-1.5); ALKALINE PHOSPHATASE 88 IU/L (46-116); ANION GAP 0 (8-16); ASPARTATE AMINO TRANSFERASE 18 U/L (10-37); BILIRUBIN,TOTAL 0.2 MG/DL (0.1-1.0); BLOOD UREA NITROGEN 9 MG/DL (7-18); BUN/CREATININE RATIO 20.5 (6.6-38.0); CHLORIDE 98 MMOL/L (99-107); CREATININE 0.44 MG/DL (0.40-0.90); PHOSPHORUS 6.4 MG/DL (2.3-4.5); POTASSIUM 3.4 MMOL/L (3.5-5.1); SODIUM 132 MMOL/L (135-145); TOTAL CARBON DIOXIDE 33.8 MMOL/L (24-32); TOTAL PROTEIN 6.5 G/DL (6.4-8.2); eGFR > 90 ML/MIN
[2019-02-11 04:18] LABS: GLUCOSE 82 MG/DL (70-104)
--- NOTE | 2019-02-11 06:30 | NUR ---
Patient in room CICU 2011. I have received report from JHOAN Mata and had the opportunity to ask questions and assume patient care.
[2019-02-11] MEDS: potassium Cl oral solution 20 MEQ/15 ML CORPAK PRN (06:35)
[2019-02-11] MEDS: lactobacillus rhamnosus 10,000 MMU CELLS/CAPSULE OGT SCH ×2 (08:00→19:23)
[2019-02-11] MEDS: valproate sod 250mg/5ml UD oral syrup CORPAK SCH ×2 (08:00→19:30)
[2019-02-11] MEDS: aripiprazole 5mg tablet CORPAK SCH (08:00)
[2019-02-11] MEDS: metoprolol tartrate 25mg tablet CORPAK SCH ×2 (08:00→19:56)
[2019-02-11] MEDS: quetiapine 100mg tablet CORPAK SCH ×2 (08:00→19:24)
[2019-02-11] MEDS: fluvoxamine 25 MG tablet CORPAK SCH ×2 (08:00→19:24)
[2019-02-11] MEDS: levoTHYROXINE 25mcg tablet CORPAK SCH (08:00)
[2019-02-11] MEDS: docusate sodium 100mg/10ml UD cup CORPAK SCH ×2 (08:00→19:25)
[2019-02-11] MEDS: ferrous sulfate 300mg/5ml UD oral liquid CORPAK SCH (08:00)
[2019-02-11] MEDS: pyridoxine 50mg tablet CORPAK SCH (08:00)
[2019-02-11] MEDS: metolazone 2.5mg tablet CORPAK SCH ×2 (08:00→19:25)
[2019-02-11] MEDS: methylnaltrexone br 12mg/0.6ml inj***SubQ only SQ SCH (08:59)
[2019-02-11] MEDS: ESOMEPRAZOLE 40 MG VIAL IV SCH ×2 (08:59→19:23)
[2019-02-11] MEDS: heparin, porcine 5000 units/ml vial SQ SCH ×2 (09:00→19:24)
[2019-02-11] MEDS: normal saline 1000ml 1,000 ML IV SCH (09:00)
[2019-02-11] MEDS: nystatin 15 GM powder TP SCH ×3 (09:01→19:56)
[2019-02-11] MEDS: FENTANYL-0.9 % NACL/PF 100 ML IV PRN ×2 (10:44→13:23)
[2019-02-11] MEDS: midazolam 100mg in NS 100ml 100 ML IV PRN (10:45)
[2019-02-11] MEDS: furosemide inj 100 ML IV SCH (11:30)
--- NOTE | 2019-02-11 11:49 | NUR ---
F/u: Pt pending new corpak placement by IR today; would benefit from post-pyloric feeds in proximal jejunum for optimal nutrition support tolerance. LBM 6/ receiving miralax and relistor w/ lactulose and MoM PRN not given. Would benefit from additional bowel care once PO. Will continue to monitor for TF tolerance. Addendum: 02/11/19 at [address] Amended: Links added.
[2019-02-11 12:56] LABS: ALANINE AMINOTRANSFERASE 10 U/L (12-78); ALBUMIN 1.1 G/DL (3.4-5.0); ALBUMIN/GLOBULIN RATIO 0.2 (1.1-1.5); ALKALINE PHOSPHATASE 93 IU/L (46-116); ANION GAP 3 (8-16); ASPARTATE AMINO TRANSFERASE 19 U/L (10-37); BILIRUBIN,TOTAL 0.2 MG/DL (0.1-1.0); BLOOD UREA NITROGEN 11 MG/DL (7-18); CALCIUM 8.9 MG/DL (8.5-10.1); CHLORIDE 102 MMOL/L (99-107); CREATININE 0.55 MG/DL (0.40-0.90); GLUCOSE 87 MG/DL (70-104); MAGNESIUM 2.1 MG/DL (1.5-2.4); PHOSPHORUS 6.6 MG/DL (2.3-4.5); POTASSIUM 3.8 MMOL/L (3.5-5.1); SODIUM 139 MMOL/L (135-145); TOTAL CARBON DIOXIDE 34.5 MMOL/L (24-32); TOTAL PROTEIN 6.7 G/DL (6.4-8.2); eGFR > 90 ML/MIN
[2019-02-11] MEDS: NORepinephrine 8mg/ 250ml NS 250 ML IV SCH (13:15)
--- NOTE | 2019-02-11 13:42 | NUR ---
Pt to IR with Brando STAPLES on monitor and Carmen OLIVEIRA
[2019-02-11] MEDS ORDERED: ondansetron/PF 4mg/2ml inj ONE (14:12)
[2019-02-11] MEDS ORDERED: iohexol 300 MG/1 ML 50ml polymer ONE (14:14)
--- NOTE | 2019-02-11 15:07 | NUR ---
Transport vent tested, set up with appropriate settings, battery length full and alarms prior to departure. Pt transported to IR with no problems at 1345. JHOAN Michaels called RT and said that the vent was alarming with a "Service" red screen. RT went down to IR to evaluate and vent was plugged in and still working properly. Alarm was silenced and returned to normal operation. On the way back to the CICU at 1440, the transport vent kept alarming that the battery was empty despite just having a fully charged battery. Pt remained stable with no desaturations the entire duration. Disconnected transport vent and manually bagged pt back to room 2012. Pt placed back on mechanical ventilator with settings of ACPC PC 22, RR 22, PEEP +8, FiO2 55%. Pt relaxed and comfortable and vital signs stable. [employer] order submitted and vent transported to [facility] for evaluation. Addendum: 02/11/19 at 1526 by Carmen Gooden RT Amended: Links added.
--- NOTE | 2019-02-11 18:25 | NUR ---
Patient in room CICU 2011. I have received report from Debra STAPLES and had the opportunity to ask questions and assume patient care. Patient laying in bed, intubated on A/C PC mode and saturating at 92% on 55% FIO2, sedated on 4mg/hr of versed and 75mcg/hr of fentanyl.BP 119/54 on 5mcg/min of levophed. Patient arousable to tactile stimulus, not following commands at this time. Will continue to monitor patient.
[2019-02-11] MEDS: hydrOXYzine 25 MG tablet CORPAK SCH (19:29)
[2019-02-11] MEDS: polyethylene glycol 3350 17gm powd pack CORPAK SCH (19:30)
[2019-02-12] VITALS (24 sets, daily range): BP systolic 69–143; BP diastolic 39–71
--- NOTE | 2019-02-12 | NUR ---
No changes in patient condition noted. Will continue to monitor.
[2019-02-12] MEDS: mineral oil/petrolatum ophthal oint EACHEYE SCH ×4 (02:31→20:05)
[2019-02-12 02:44] LABS: BASOPHILS # (AUTO) 0.1 X10'3 (0-0.2); EOSINOPHILS # (AUTO) 0.6 X10'3 (0-0.9); EOSINOPHILS % (AUTO) 6.9 % (0-6); HEMATOCRIT 27.1 % (35.0-45.0); HEMOGLOBIN 9.3 g/dl (12.0-16.0); LYMPHOCYTES # (AUTO) 1.8 X10'3 (1.1-4.8); MEAN CORPUSCULAR HEMOGLOBIN 30.2 PG (27.0-31.0); MEAN CORPUSCULAR HGB CONC 34.2 g/dL (33.0-36.5); MEAN CORPUSCULAR VOLUME 88.4 FL (78-98); MEAN PLATELET VOLUME 7.1 FL (7.4-10.4); MONOCYTES # (AUTO) 0.5 X10'3 (0-0.9); MONOCYTES % (AUTO) 5.6 % (2-12); NEUTROPHILS # (AUTO) 5.4 X10'3 (1.8-7.7); NEUTROPHILS % (AUTO) 64.5 % (42-75); PLATELET COUNT 456 X10'3 (140-440); RED BLOOD COUNT 3.07 X10'6 (4.20-5.60); RED CELL DISTRIBUTION WIDTH 18.3 % (11.5-14.5); WHITE BLOOD COUNT 8.4 X10'3 (4.5-11.0)
[2019-02-12 02:47] LABS: ALBUMIN 1.2 G/DL (3.4-5.0); ANION GAP 0 (8-16); BLOOD UREA NITROGEN 9 MG/DL (7-18); BUN/CREATININE RATIO 17.3 (6.6-38.0); CHLORIDE 102 MMOL/L (99-107); CREATININE 0.52 MG/DL (0.40-0.90); GLUCOSE 96 MG/DL (70-104); MAGNESIUM 1.6 MG/DL (1.5-2.4); PHOSPHORUS 5.7 MG/DL (2.3-4.5); POTASSIUM 3.2 MMOL/L (3.5-5.1); SODIUM 138 MMOL/L (135-145); TOTAL CARBON DIOXIDE 36.1 MMOL/L (24-32); eGFR > 90 ML/MIN
[2019-02-12] MEDS: ipratropium/albuterol 3ml nebule NEB SCH ×6 (03:28→22:44)
[2019-02-12 03:45] LABS: ABG BASE EXCESS 12.9 mmol/L (-2.0-3.0); ABG HCO3 37.2 mmol/L (22.0-26.0); ABG PCO2 (T) 45.8 mmHg (32.0-45.0); ABG PH (T) 7.526 (7.350-7.450); ABG PO2 (T) 55.3 mmHg (83-108); ALLEN'S TEST Positive; FCOHb 0.3 % (0.5-1.5); FMetHb 0.1 % (0.3-1.12); FO2Hb 88.6 % (94-100); MINUTE VOLUME 7 L/min; PATIENT TEMPERATURE 36.6; PEEP 8 cm H2O; RESPIRATORY RATE 22 b/min; RESPIRATORY RATE (OBSERVED) 22 b/min; TOTAL HEMOGLOBIN 10.2 G/dl (12.0-16.0)
[2019-02-12] MEDS: furosemide inj 100 ML IV SCH ×2 (04:10→05:57)
[2019-02-12] MEDS: potassium Cl oral solution 20 MEQ/15 ML CORPAK PRN ×3 (04:20→17:00)
[2019-02-12] MEDS: normal saline 1000ml 1,000 ML IV SCH ×2 (04:56→22:30)
[2019-02-12] MEDS: FENTANYL-0.9 % NACL/PF 100 ML IV PRN ×2 (04:56→23:26)
--- NOTE | 2019-02-12 06:33 | NUR ---
Problems reprioritized. Patient report given, questions answered & plan of care reviewed with Clarita STAPLES.
[2019-02-12] MEDS: NORepinephrine 8mg/ 250ml NS 250 ML IV SCH ×2 (07:52→19:55)
[2019-02-12] MEDS: levoTHYROXINE 25mcg tablet CORPAK SCH (07:52)
[2019-02-12] MEDS: midazolam 100mg in NS 100ml 100 ML IV PRN (07:52)
[2019-02-12] MEDS: aripiprazole 5mg tablet CORPAK SCH (07:52)
[2019-02-12] MEDS: ferrous sulfate 300mg/5ml UD oral liquid CORPAK SCH (07:52)
[2019-02-12] MEDS: fluvoxamine 25 MG tablet CORPAK SCH ×2 (07:52→19:55)
[2019-02-12] MEDS: pyridoxine 50mg tablet CORPAK SCH (07:53)
[2019-02-12] MEDS: quetiapine 100mg tablet CORPAK SCH ×2 (07:53→19:55)
[2019-02-12] MEDS: metoprolol tartrate 25mg tablet CORPAK SCH ×2 (07:53→20:00)
[2019-02-12] MEDS: lactobacillus rhamnosus 10,000 MMU CELLS/CAPSULE OGT SCH ×2 (07:53→19:58)
[2019-02-12] MEDS: metolazone 2.5mg tablet CORPAK SCH ×2 (07:53→22:19)
[2019-02-12] MEDS: docusate sodium 100mg/10ml UD cup CORPAK SCH ×2 (07:54→19:56)
[2019-02-12] MEDS: heparin, porcine 5000 units/ml vial SQ SCH ×2 (07:54→19:58)
[2019-02-12] MEDS: valproate sod 250mg/5ml UD oral syrup CORPAK SCH ×2 (07:54→22:04)
[2019-02-12] MEDS: nystatin 15 GM powder TP SCH ×3 (07:55→22:05)
[2019-02-12] MEDS: ESOMEPRAZOLE 40 MG VIAL IV SCH ×2 (07:58→19:58)
--- NOTE | 2019-02-12 12:19 | NUR ---
reassessment: Pt corpak in duodenum post-pyloric w/ NG feeds restarted and tolerating advancing to goal today. LBM 5 days 02/07; soap zoe enema for additional bowel care in combination w/ multiple routine bowel care meds pt already receiving today per MD. Pt has very little muscle/fat mass and qualifies for severe malnutrition at this time; MD notified. Will continue to monitor. Recommend: 1. continuous TF per OG tube as able at goal rate of 65 ml/hr to provide 1560 ml, 1872 gilmar, 117 g protein, and 1265 ml water. 2. additional water flush 200 ml Q4H 3. daily wt, prealbumin q Saturday and 4. When extubated, BSS prior to diet advancement d/t dysphagia 5. Routine bowel care Addendum: 02/12/19 at [address] Amended: Links added.
--- NOTE | 2019-02-12 18:20 | NUR ---
Problems reprioritized. Patient report given, questions answered & plan of care reviewed with Luiz STAPLES.
--- NOTE | 2019-02-12 18:20 | NUR ---
Report received, A Forceondina RN on duty. Patient received orally intubated ETT secured with anchorfast. Corpack via OG with enteric feedings Vital AF @ 40 ml/hr. Patient is moderately sedated on Fentanyl & versed drips. No distress. Soft wrist restraints secure as patient does have periods of wakefulness and grabs & pills at anything in reach.
[2019-02-12] MEDS: dexmedetomidin/NS 400mcg/100ml 100 ML IV SCH (20:41)
[2019-02-12] MEDS: polyethylene glycol 3350 17gm powd pack CORPAK SCH (22:04)
[2019-02-12] MEDS: hydrOXYzine 25 MG tablet CORPAK SCH (22:04)
[2019-02-13] VITALS (24 sets, daily range): BP systolic 80–150; BP diastolic 42–82
[2019-02-13] MEDS: mineral oil/petrolatum ophthal oint EACHEYE SCH ×4 (02:00→20:37)
[2019-02-13 02:33] LABS: BASOPHILS % (AUTO) 0.5 % (0-1); EOSINOPHILS # (AUTO) 0.7 X10'3 (0-0.9); EOSINOPHILS % (AUTO) 6.3 % (0-6); HEMATOCRIT 24.9 % (35.0-45.0); HEMOGLOBIN 8.6 g/dl (12.0-16.0); LYMPHOCYTES # (AUTO) 1.6 X10'3 (1.1-4.8); LYMPHOCYTES % (AUTO) 15.6 % (21-51); MEAN CORPUSCULAR HEMOGLOBIN 30.5 PG (27.0-31.0); MEAN CORPUSCULAR HGB CONC 34.5 g/dL (33.0-36.5); MEAN CORPUSCULAR VOLUME 88.4 FL (78-98); MEAN PLATELET VOLUME 7.2 FL (7.4-10.4); MONOCYTES # (AUTO) 0.7 X10'3 (0-0.9); NEUTROPHILS # (AUTO) 7.3 X10'3 (1.8-7.7); NEUTROPHILS % (AUTO) 70.6 % (42-75); PLATELET COUNT 343 X10'3 (140-440); RED BLOOD COUNT 2.82 X10'6 (4.20-5.60); RED CELL DISTRIBUTION WIDTH 18.3 % (11.5-14.5); WHITE BLOOD COUNT 10.4 X10'3 (4.5-11.0)
[2019-02-13 02:41] LABS: ALBUMIN 1.3 G/DL (3.4-5.0); ANION GAP -1 (8-16); BLOOD UREA NITROGEN 10 MG/DL (7-18); BUN/CREATININE RATIO 15.4 (6.6-38.0); CALCIUM 9.6 MG/DL (8.5-10.1); CHLORIDE 102 MMOL/L (99-107); CREATININE 0.65 MG/DL (0.40-0.90); MAGNESIUM 1.6 MG/DL (1.5-2.4); PHOSPHORUS 4.4 MG/DL (2.3-4.5); POTASSIUM 3.5 MMOL/L (3.5-5.1); SODIUM 137 MMOL/L (135-145); TOTAL CARBON DIOXIDE 36.1 MMOL/L (24-32); eGFR 90 ML/MIN
[2019-02-13 02:42] LABS: GLUCOSE 113 MG/DL (70-104)
[2019-02-13] MEDS: ipratropium/albuterol 3ml nebule NEB SCH ×6 (03:04→23:03)
[2019-02-13 03:31] LABS: ABG BASE EXCESS 9.5 mmol/L (-2.0-3.0); ABG OXYGEN SATURATION 90.5 % (95-98); ABG PH (T) 7.395 (7.350-7.450); ABG PO2 (T) 64.7 mmHg (83-108); ALLEN'S TEST Positive; FCOHb 0.3 % (0.5-1.5); FMetHb 0.2 % (0.3-1.12); MINUTE VOLUME 6 L/min; PATIENT TEMPERATURE 36.8; PEEP 8 cm H2O; RESPIRATORY RATE 20 b/min; RESPIRATORY RATE (OBSERVED) 20 b/min; TOTAL HEMOGLOBIN 9.6 G/dl (12.0-16.0)
[2019-02-13] MEDS: NORepinephrine 8mg/ 250ml NS 250 ML IV SCH (04:18)
--- NOTE | 2019-02-13 05:00 | NUR ---
Complete bath rendered. Linen & gown changed. Patient assisted in repositioning left/right.
[2019-02-13] MEDS: dexmedetomidin/NS 400mcg/100ml 100 ML IV SCH (05:21)
--- NOTE | 2019-02-13 06:35 | NUR ---
Problems reprioritized. Patient report given, questions answered & plan of care reviewed with Clarita STAPLES.
--- NOTE | 2019-02-13 06:38 | NUR ---
Patient in room CICU 2011. I have received report from Carolina STAPLES and had the opportunity to ask questions and assume patient care. Patient is on levo and BP is 132/68 , VSS , patient resting comfortably and no signs of distress.
[2019-02-13] MEDS: heparin, porcine 5000 units/ml vial SQ SCH ×2 (07:58→20:39)
[2019-02-13] MEDS: methylnaltrexone br 12mg/0.6ml inj***SubQ only SQ SCH (07:58)
[2019-02-13] MEDS: fluvoxamine 25 MG tablet CORPAK SCH ×2 (07:59→20:36)
[2019-02-13] MEDS: aripiprazole 5mg tablet CORPAK SCH (07:59)
[2019-02-13] MEDS: ferrous sulfate 300mg/5ml UD oral liquid CORPAK SCH (07:59)
[2019-02-13] MEDS: valproate sod 250mg/5ml UD oral syrup CORPAK SCH ×2 (07:59→20:40)
[2019-02-13] MEDS: quetiapine 100mg tablet CORPAK SCH ×2 (07:59→20:37)
[2019-02-13] MEDS: levoTHYROXINE 25mcg tablet CORPAK SCH (07:59)
[2019-02-13] MEDS: lactobacillus rhamnosus 10,000 MMU CELLS/CAPSULE OGT SCH ×2 (07:59→20:36)
[2019-02-13] MEDS: pyridoxine 50mg tablet CORPAK SCH (08:00)
[2019-02-13] MEDS: metoprolol tartrate 25mg tablet CORPAK SCH ×2 (08:00→20:00)
[2019-02-13] MEDS: metolazone 2.5mg tablet CORPAK SCH ×2 (08:00→20:37)
[2019-02-13] MEDS: docusate sodium 100mg/10ml UD cup CORPAK SCH ×2 (08:00→20:40)
[2019-02-13] MEDS: ESOMEPRAZOLE 40 MG VIAL IV SCH ×2 (08:00→20:37)
[2019-02-13] MEDS: nystatin 15 GM powder TP SCH ×3 (08:00→20:36)
[2019-02-13] MEDS ORDERED: albumin (human) 25% 100 ML IV solution IV ONE (12:00)
[2019-02-13] MEDS: furosemide 20 MG/2 ML vial IV SCH ×2 (13:51→16:23)
[2019-02-13] MEDS: potassium Cl oral solution 20 MEQ/15 ML CORPAK PRN (16:23)
[2019-02-13] MEDS: albumin (human) 25% 100 ML IV solution IV SCH (16:23)
[2019-02-13] MEDS: FENTANYL-0.9 % NACL/PF 100 ML IV PRN (16:24)
[2019-02-13] MEDS: midazolam 100mg in NS 100ml 100 ML IV PRN (16:24)
--- NOTE | 2019-02-13 18:40 | NUR ---
Patient in room CICU 2011. I have received report from Clarita STAPLES and had the opportunity to ask questions and assume patient care.
[2019-02-13] MEDS: hydrOXYzine 25 MG tablet CORPAK SCH (20:36)
[2019-02-13] MEDS: normal saline 1000ml 1,000 ML IV SCH (20:40)
[2019-02-13] MEDS: polyethylene glycol 3350 17gm powd pack CORPAK SCH (20:40)
[2019-02-14] VITALS (24 sets, daily range): BP systolic 80–140; BP diastolic 37–72
[2019-02-14] MEDS: mineral oil/petrolatum ophthal oint EACHEYE SCH ×4 (01:25→19:44)
[2019-02-14] MEDS: furosemide 20 MG/2 ML vial IV SCH ×3 (01:25→15:52)
[2019-02-14] MEDS: dexmedetomidin/NS 400mcg/100ml 100 ML IV SCH (01:25)
[2019-02-14] MEDS: NORepinephrine 8mg/ 250ml NS 250 ML IV SCH (02:22)
[2019-02-14 03:20] LABS: BASOPHILS % (AUTO) 0.1 % (0-1); EOSINOPHILS # (AUTO) 0.8 X10'3 (0-0.9); EOSINOPHILS % (AUTO) 5.3 % (0-6); HEMOGLOBIN 7.3 g/dl (12.0-16.0); LYMPHOCYTES # (AUTO) 1.2 X10'3 (1.1-4.8); MEAN CORPUSCULAR HEMOGLOBIN 30.7 PG (27.0-31.0); MEAN CORPUSCULAR HGB CONC 34.1 g/dL (33.0-36.5); MEAN CORPUSCULAR VOLUME 89.9 FL (78-98); MEAN PLATELET VOLUME 7.5 FL (7.4-10.4); MONOCYTES # (AUTO) 0.8 X10'3 (0-0.9); MONOCYTES % (AUTO) 5.1 % (2-12); NEUTROPHILS # (AUTO) 12.4 X10'3 (1.8-7.7); NEUTROPHILS % (AUTO) 81.5 % (42-75); PLATELET COUNT 210 X10'3 (140-440); RED BLOOD COUNT 2.38 X10'6 (4.20-5.60); RED CELL DISTRIBUTION WIDTH 18.3 % (11.5-14.5); WHITE BLOOD COUNT 15.2 X10'3 (4.5-11.0)
[2019-02-14] MEDS: ipratropium/albuterol 3ml nebule NEB SCH ×6 (03:21→23:19)
[2019-02-14 03:24] LABS: HEMATOCRIT 21.4 % (35.0-45.0)
--- NOTE | 2019-02-14 03:30 | NUR ---
i called Brad Pham at 0330 to report critical H/H of 7.3/21.4. he is aware. no signs of bleeding at this time. he gave orders for new type and screen, and to reassess H/h at 1000. orders entered. continue to monitor.
[2019-02-14 03:31] LABS: ALBUMIN 2.4 G/DL (3.4-5.0); ANION GAP 0 (8-16); BLOOD UREA NITROGEN 14 MG/DL (7-18); BUN/CREATININE RATIO 23.3 (6.6-38.0); CALCIUM 9.8 MG/DL (8.5-10.1); CHLORIDE 98 MMOL/L (99-107); MAGNESIUM 1.4 MG/DL (1.5-2.4); PHOSPHORUS 3.7 MG/DL (2.3-4.5); POTASSIUM 3.4 MMOL/L (3.5-5.1); SODIUM 136 MMOL/L (135-145); TOTAL CARBON DIOXIDE 37.6 MMOL/L (24-32); eGFR > 90 ML/MIN
[2019-02-14 03:32] LABS: GLUCOSE 103 MG/DL (70-104)
[2019-02-14 04:16] LABS: ABG BASE EXCESS 12.8 mmol/L (-2.0-3.0); ABG HCO3 39.3 mmol/L (22.0-26.0); ABG OXYGEN SATURATION 87.2 % (95-98); ABG PCO2 (T) 63.1 mmHg (32.0-45.0); ABG PH (T) 7.409 (7.350-7.450); ABG PO2 (T) 54.6 mmHg (83-108); ALLEN'S TEST Positive; FCOHb 0.6 % (0.5-1.5); FMetHb 0.3 % (0.3-1.12); FO2Hb 86.4 % (94-100); MINUTE VOLUME 7 L/min; PATIENT TEMPERATURE 36.3; PEEP 8 cm H2O; RESPIRATORY RATE 20 b/min; RESPIRATORY RATE (OBSERVED) 20 b/min; TOTAL HEMOGLOBIN 8.5 G/dl (12.0-16.0)
--- NOTE | 2019-02-14 06:38 | NUR ---
Problems reprioritized. Patient report given, questions answered & plan of care reviewed with Clarita STAPLES.
[2019-02-14] MEDS: methylnaltrexone br 12mg/0.6ml inj***SubQ only SQ SCH (09:24)
[2019-02-14] MEDS: heparin, porcine 5000 units/ml vial SQ SCH ×2 (09:25→19:46)
[2019-02-14] MEDS: metoprolol tartrate 25mg tablet CORPAK SCH ×2 (09:26→19:44)
[2019-02-14] MEDS: levoTHYROXINE 25mcg tablet CORPAK SCH (09:26)
[2019-02-14] MEDS: aripiprazole 5mg tablet CORPAK SCH (09:26)
[2019-02-14] MEDS: valproate sod 250mg/5ml UD oral syrup CORPAK SCH ×2 (09:27→22:18)
[2019-02-14] MEDS: docusate sodium 100mg/10ml UD cup CORPAK SCH ×2 (09:27→19:43)
[2019-02-14] MEDS: ESOMEPRAZOLE 40 MG VIAL IV SCH ×2 (09:27→19:43)
[2019-02-14] MEDS: ferrous sulfate 300mg/5ml UD oral liquid CORPAK SCH (09:27)
[2019-02-14] MEDS: metolazone 2.5mg tablet CORPAK SCH ×2 (09:28→19:44)
[2019-02-14] MEDS: quetiapine 100mg tablet CORPAK SCH ×2 (09:28→20:28)
[2019-02-14] MEDS: pyridoxine 50mg tablet CORPAK SCH (09:28)
[2019-02-14] MEDS: lactobacillus rhamnosus 10,000 MMU CELLS/CAPSULE OGT SCH ×2 (09:28→19:43)
[2019-02-14] MEDS: fluvoxamine 25 MG tablet CORPAK SCH ×2 (09:29→19:44)
[2019-02-14] MEDS: albumin (human) 25% 100 ML IV solution IV SCH ×3 (09:30→15:52)
[2019-02-14] MEDS: nystatin 15 GM powder TP SCH ×3 (09:31→22:19)
[2019-02-14] MEDS: normal saline 1000ml 1,000 ML IV SCH (14:55)
[2019-02-14] MEDS: potassium Cl oral solution 20 MEQ/15 ML CORPAK PRN (15:52)
[2019-02-14] MEDS: hydrOXYzine 25 MG tablet CORPAK SCH (22:18)
[2019-02-14] MEDS: polyethylene glycol 3350 17gm powd pack CORPAK SCH (22:19)
[2019-02-15] VITALS (24 sets, daily range): BP systolic 86–131; BP diastolic 40–78
[2019-02-15] MEDS: albumin (human) 25% 100 ML IV solution IV SCH ×3 (00:18→16:45)
[2019-02-15 02:37] LABS: BASOPHILS % (AUTO) 0.2 % (0-1); EOSINOPHILS # (AUTO) 0.9 X10'3 (0-0.9); EOSINOPHILS % (AUTO) 7.9 % (0-6); HEMOGLOBIN 7.1 g/dl (12.0-16.0); LYMPHOCYTES # (AUTO) 1.3 X10'3 (1.1-4.8); MEAN CORPUSCULAR HEMOGLOBIN 31.5 PG (27.0-31.0); MEAN CORPUSCULAR VOLUME 90.1 FL (78-98); MEAN PLATELET VOLUME 7.5 FL (7.4-10.4); MONOCYTES # (AUTO) 0.7 X10'3 (0-0.9); MONOCYTES % (AUTO) 6.9 % (2-12); PLATELET COUNT 180 X10'3 (140-440); RED BLOOD COUNT 2.25 X10'6 (4.20-5.60); RED CELL DISTRIBUTION WIDTH 18.4 % (11.5-14.5); WHITE BLOOD COUNT 10.9 X10'3 (4.5-11.0)
[2019-02-15 02:44] LABS: HEMATOCRIT 20.2 % (35.0-45.0)
[2019-02-15 02:49] LABS: ALBUMIN 2.9 G/DL (3.4-5.0); ANION GAP 0 (8-16); BLOOD UREA NITROGEN 15 MG/DL (7-18); CALCIUM 10.3 MG/DL (8.5-10.1); CHLORIDE 102 MMOL/L (99-107); GLUCOSE 84 MG/DL (70-104); MAGNESIUM 1.3 MG/DL (1.5-2.4); PHOSPHORUS 3.5 MG/DL (2.3-4.5); POTASSIUM 3.5 MMOL/L (3.5-5.1); SODIUM 139 MMOL/L (135-145); TOTAL CARBON DIOXIDE 36.9 MMOL/L (24-32); eGFR > 90 ML/MIN
[2019-02-15] MEDS: furosemide 20 MG/2 ML vial IV SCH ×3 (02:52→16:43)
[2019-02-15] MEDS: mineral oil/petrolatum ophthal oint EACHEYE SCH ×4 (02:52→19:59)
[2019-02-15] MEDS: magnesium 2GM in 50ml NS 50 ML IV PRN (03:06)
[2019-02-15] MEDS: ipratropium/albuterol 3ml nebule NEB SCH ×6 (03:10→23:36)
--- NOTE | 2019-02-15 03:30 | NUR ---
Bowels moved. Enormous amount 3-5 lbs estimated based on weight difference post the never ending event. Stool is green and soft, not formed. Consistency of mashed potatoes or cream of wheat.
--- NOTE | 2019-02-15 03:50 | NUR ---
Complete bath rendered, wash cloths/bath wipes/ bard wipes and CHG wipes utilized. Linen & gown changed.
--- NOTE | 2019-02-15 04:14 | NUR ---
Lab results called to Edmund Pham. Hct 20.2. No new orders.
[2019-02-15 04:46] LABS: ABG HCO3 37.8 mmol/L (22.0-26.0); ABG OXYGEN SATURATION 91.9 % (95-98); ABG PCO2 (T) 58.1 mmHg (32.0-45.0); ABG PH (T) 7.431 (7.350-7.450); ABG PO2 (T) 66.8 mmHg (83-108); ALLEN'S TEST Positive; FCOHb 0.2 % (0.5-1.5); FMetHb 0.2 % (0.3-1.12); FO2Hb 91.5 % (94-100); MINUTE VOLUME 7 L/min; PEEP 8 cm H2O; RESPIRATORY RATE 20 b/min; RESPIRATORY RATE (OBSERVED) 22 b/min; TIDAL VOLUME 330 mL; TOTAL HEMOGLOBIN 8.3 G/dl (12.0-16.0)
--- NOTE | 2019-02-15 06:40 | NUR ---
Problems reprioritized. Patient report given, questions answered & plan of care reviewed with Bing STAPLES.
--- NOTE | 2019-02-15 06:46 | NUR ---
Patient in room CICU 2011. I have received report from off going RN and had the opportunity to ask questions and assume patient care.
[2019-02-15] MEDS: docusate sodium 100mg/10ml UD cup CORPAK SCH ×2 (07:09→20:00)
[2019-02-15] MEDS: metoprolol tartrate 25mg tablet CORPAK SCH ×2 (07:10→20:00)
[2019-02-15] MEDS: nystatin 15 GM powder TP SCH ×3 (09:32→21:00)
[2019-02-15] MEDS: midazolam 100mg in NS 100ml 100 ML IV PRN (09:33)
[2019-02-15] MEDS: valproate sod 250mg/5ml UD oral syrup CORPAK SCH ×2 (09:33→21:39)
[2019-02-15] MEDS: magnesium 4gm in 100ml NS 100 ML IV PRN (09:33)
[2019-02-15] MEDS: ferrous sulfate 300mg/5ml UD oral liquid CORPAK SCH (09:33)
[2019-02-15] MEDS: pyridoxine 50mg tablet CORPAK SCH (09:34)
[2019-02-15] MEDS: levoTHYROXINE 25mcg tablet CORPAK SCH (09:34)
[2019-02-15] MEDS: ESOMEPRAZOLE 40 MG VIAL IV SCH ×2 (09:34→20:02)
[2019-02-15] MEDS: aripiprazole 5mg tablet CORPAK SCH (09:34)
[2019-02-15] MEDS: lactobacillus rhamnosus 10,000 MMU CELLS/CAPSULE OGT SCH ×2 (09:35→20:00)
[2019-02-15] MEDS: quetiapine 100mg tablet CORPAK SCH ×2 (09:35→20:00)
[2019-02-15] MEDS: fluvoxamine 25 MG tablet CORPAK SCH ×2 (09:35→20:01)
[2019-02-15] MEDS: metolazone 2.5mg tablet CORPAK SCH ×2 (09:35→20:00)
[2019-02-15] MEDS: heparin, porcine 5000 units/ml vial SQ SCH ×2 (09:37→20:02)
--- NOTE | 2019-02-15 11:32 | NUR ---
reassessment: Pt tolerating TF at goal. Copious stool noted today following likely 9 days constipation. No residuals noted. Will continue to monitor. Recommend: 1. continuous TF per OG tube as able at goal rate of 65 ml/hr to provide 1560 ml,1872 gilmar, 117 g protein, and 1265 ml water. 2. additional water flush 200 ml Q4H 3. daily wt, prealbumin q Saturday and 4. When extubated, BSS prior to diet advancement d/t dysphagia 5. Routine bowel care Addendum: 02/15/19 at [address] Amended: Links added.
[2019-02-15] MEDS: normal saline 1000ml 1,000 ML IV SCH (13:53)
[2019-02-15] MEDS: methylPREDNISolone sod succ 125mg/2ml vial IV SCH ×2 (14:10→20:01)
--- NOTE | 2019-02-15 18:36 | NUR ---
Problems reprioritized. Patient report given, questions answered & plan of care reviewed with Oncoming RN.
[2019-02-15] MEDS: FENTANYL-0.9 % NACL/PF 100 ML IV PRN (20:04)
[2019-02-15] MEDS: polyethylene glycol 3350 17gm powd pack CORPAK SCH (21:00)
[2019-02-15] MEDS: hydrOXYzine 25 MG tablet CORPAK SCH (21:39)
[2019-02-15] MEDS: NORepinephrine 8mg/ 250ml NS 250 ML IV SCH (21:41)
[2019-02-16] VITALS (24 sets, daily range): BP systolic 111–148; BP diastolic 50–84
[2019-02-16] MEDS: albumin (human) 25% 100 ML IV solution IV SCH ×2 (00:09→07:41)
[2019-02-16] MEDS: furosemide 20 MG/2 ML vial IV SCH ×2 (01:39→07:38)
[2019-02-16] MEDS: mineral oil/petrolatum ophthal oint EACHEYE SCH ×4 (01:43→20:37)
[2019-02-16 02:46] LABS: BASOPHILS % (AUTO) 0.1 % (0-1); EOSINOPHILS % (AUTO) 0 % (0-6); HEMATOCRIT 22.4 % (35.0-45.0); HEMOGLOBIN 7.5 g/dl (12.0-16.0); LYMPHOCYTES # (AUTO) 0.7 X10'3 (1.1-4.8); LYMPHOCYTES % (AUTO) 8.3 % (21-51); MEAN CORPUSCULAR HEMOGLOBIN 30.1 PG (27.0-31.0); MEAN CORPUSCULAR HGB CONC 33.3 g/dL (33.0-36.5); MEAN CORPUSCULAR VOLUME 90.3 FL (78-98); MONOCYTES # (AUTO) 0.1 X10'3 (0-0.9); MONOCYTES % (AUTO) 0.9 % (2-12); NEUTROPHILS # (AUTO) 7.7 X10'3 (1.8-7.7); NEUTROPHILS % (AUTO) 90.7 % (42-75); PLATELET COUNT 172 X10'3 (140-440); RED BLOOD COUNT 2.47 X10'6 (4.20-5.60); RED CELL DISTRIBUTION WIDTH 18.2 % (11.5-14.5); WHITE BLOOD COUNT 8.4 X10'3 (4.5-11.0)
[2019-02-16 03:00] LABS: ALBUMIN 3.4 G/DL (3.4-5.0); ANION GAP 2 (8-16); BLOOD UREA NITROGEN 21 MG/DL (7-18); BUN/CREATININE RATIO 29.6 (6.6-38.0); CALCIUM 10.4 MG/DL (8.5-10.1); CHLORIDE 96 MMOL/L (99-107); CREATININE 0.71 MG/DL (0.40-0.90); GLUCOSE 145 MG/DL (70-104); MAGNESIUM 2.1 MG/DL (1.5-2.4); PHOSPHORUS 4.6 MG/DL (2.3-4.5); POTASSIUM 3.2 MMOL/L (3.5-5.1); SODIUM 138 MMOL/L (135-145); TOTAL CARBON DIOXIDE 39.6 MMOL/L (24-32); eGFR 81 ML/MIN
--- NOTE | 2019-02-16 03:00 | NUR ---
Large soft BM. Bath rendered at this time. Linen /gown changed
[2019-02-16] MEDS: ipratropium/albuterol 3ml nebule NEB SCH ×6 (04:28→23:26)
[2019-02-16 04:45] LABS: ABG BASE EXCESS 16.2 mmol/L (-2.0-3.0); ABG HCO3 41.1 mmol/L (22.0-26.0); ABG PH (T) 7.506 (7.350-7.450); ABG PO2 (T) 55.9 mmHg (83-108); ALLEN'S TEST Positive; FCOHb 0.2 % (0.5-1.5); FMetHb 0.4 % (0.3-1.12); FO2Hb 89.5 % (94-100); MINUTE VOLUME 7 L/min; PATIENT TEMPERATURE 36.5; PEEP 8 cm H2O; RESPIRATORY RATE 20 b/min; RESPIRATORY RATE (OBSERVED) 22 b/min; TIDAL VOLUME 350 mL; TOTAL HEMOGLOBIN 7.9 G/dl (12.0-16.0)
[2019-02-16] MEDS: methylPREDNISolone sod succ 125mg/2ml vial IV SCH ×4 (05:02→20:30)
[2019-02-16] MEDS: midazolam 100mg in NS 100ml 100 ML IV PRN (06:19)
[2019-02-16] MEDS: normal saline 1000ml 1,000 ML IV SCH (06:55)
[2019-02-16] MEDS: potassium Cl oral solution 20 MEQ/15 ML CORPAK PRN ×3 (07:36→17:35)
[2019-02-16] MEDS: heparin, porcine 5000 units/ml vial SQ SCH ×2 (07:37→20:31)
[2019-02-16] MEDS: quetiapine 100mg tablet CORPAK SCH ×2 (07:38→20:28)
[2019-02-16] MEDS: pyridoxine 50mg tablet CORPAK SCH (07:38)
[2019-02-16] MEDS: lactobacillus rhamnosus 10,000 MMU CELLS/CAPSULE OGT SCH ×2 (07:38→20:28)
[2019-02-16] MEDS: aripiprazole 5mg tablet CORPAK SCH (07:38)
[2019-02-16] MEDS: fluvoxamine 25 MG tablet CORPAK SCH ×2 (07:38→20:53)
[2019-02-16] MEDS: levoTHYROXINE 25mcg tablet CORPAK SCH (07:38)
[2019-02-16] MEDS: valproate sod 250mg/5ml UD oral syrup CORPAK SCH ×2 (07:39→20:32)
[2019-02-16] MEDS: ferrous sulfate 300mg/5ml UD oral liquid CORPAK SCH (07:39)
[2019-02-16] MEDS: metoprolol tartrate 25mg tablet CORPAK SCH ×2 (07:39→20:37)
[2019-02-16] MEDS: nystatin 15 GM powder TP SCH ×3 (07:40→21:00)
[2019-02-16] MEDS: ESOMEPRAZOLE 40 MG VIAL IV SCH ×2 (07:42→20:53)
[2019-02-16] MEDS: metolazone 2.5mg tablet CORPAK SCH (07:54)
[2019-02-16] MEDS: docusate sodium 100mg/10ml UD cup CORPAK SCH ×2 (08:00→20:00)
[2019-02-16] MEDS: FENTANYL-0.9 % NACL/PF 100 ML IV PRN (13:26)
--- NOTE | 2019-02-16 14:17 | NUR ---
1000- Rounds- FIO2 at 40% currently tolerating. PICC to be replaced. 1200- Pt desating to 75% on 40%, increased FIO2 to 50% after consulting with respiratory. 1300-PICC placed to left upper arm, bleeding at site, covered with pressure dressing. 1400- Changed all IV tubing and switched to new PICC. Patient sats now 97%, decreased FIO2 to 40%. will continue to monitor. Addendum: 02/16/19 at 1423 by Mara Woodard RN 1420- decreased FIO2 to 45% not 40%.
[2019-02-16] MEDS: furosemide 40mg/4ml inj IV SCH (16:18)
--- NOTE | 2019-02-16 18:21 | NUR ---
Problems reprioritized. Patient report given, questions answered & plan of care reviewed with Carolina.
[2019-02-16] MEDS: hydrOXYzine 25 MG tablet CORPAK SCH (20:28)
[2019-02-16] MEDS: polyethylene glycol 3350 17gm powd pack CORPAK SCH (21:00)
[2019-02-16] MEDS: NORepinephrine 8mg/ 250ml NS 250 ML IV SCH (21:45)
--- NOTE | 2019-02-16 22:05 | NUR ---
Edmund Pham aware of platelet count 172, pt is on heparin SQ 5,000 units Q12/Hr.
[2019-02-17] VITALS (24 sets, daily range): BP systolic 100–161; BP diastolic 42–80
[2019-02-17] MEDS: furosemide 40mg/4ml inj IV SCH ×3 (00:12→16:01)
[2019-02-17] MEDS: midazolam 100mg in NS 100ml 100 ML IV PRN (00:54)
[2019-02-17] MEDS: mineral oil/petrolatum ophthal oint EACHEYE SCH ×4 (02:27→20:57)
[2019-02-17] MEDS: methylPREDNISolone sod succ 125mg/2ml vial IV SCH ×4 (02:30→20:45)
[2019-02-17 02:49] LABS: BASOPHILS % (AUTO) 0.2 % (0-1); EOSINOPHILS % (AUTO) 0 % (0-6); HEMATOCRIT 22.3 % (35.0-45.0); HEMOGLOBIN 7.7 g/dl (12.0-16.0); LYMPHOCYTES % (AUTO) 11.7 % (21-51); MEAN CORPUSCULAR HEMOGLOBIN 30.7 PG (27.0-31.0); MEAN CORPUSCULAR HGB CONC 34.5 g/dL (33.0-36.5); MEAN PLATELET VOLUME 8.4 FL (7.4-10.4); MONOCYTES # (AUTO) 0.6 X10'3 (0-0.9); MONOCYTES % (AUTO) 7.7 % (2-12); NEUTROPHILS # (AUTO) 6.7 X10'3 (1.8-7.7); NEUTROPHILS % (AUTO) 80.4 % (42-75); PLATELET COUNT 186 X10'3 (140-440); RED CELL DISTRIBUTION WIDTH 18.5 % (11.5-14.5); WHITE BLOOD COUNT 8.3 X10'3 (4.5-11.0)
[2019-02-17 02:50] LABS: ALBUMIN 3.4 G/DL (3.4-5.0); ANION GAP 3 (8-16); BLOOD UREA NITROGEN 44 MG/DL (7-18); BUN/CREATININE RATIO 67.7 (6.6-38.0); CALCIUM 9.9 MG/DL (8.5-10.1); CHLORIDE 95 MMOL/L (99-107); CREATININE 0.65 MG/DL (0.40-0.90); GLUCOSE 148 MG/DL (70-104); MAGNESIUM 1.6 MG/DL (1.5-2.4); PHOSPHORUS 3.6 MG/DL (2.3-4.5); SODIUM 140 MMOL/L (135-145); eGFR 90 ML/MIN
[2019-02-17 02:53] LABS: POTASSIUM 2.5 MMOL/L (3.5-5.1); TOTAL CARBON DIOXIDE 42.2 MMOL/L (24-32)
[2019-02-17] MEDS: normal saline 1000ml 1,000 ML IV SCH ×2 (02:55→11:25)
[2019-02-17] MEDS: potassium Cl 20mEq/100mL bag 100 ML IV PRN ×4 (02:58→06:06)
[2019-02-17] MEDS: ipratropium/albuterol 3ml nebule NEB SCH ×6 (03:00→23:28)
[2019-02-17 03:15] LABS: ABG BASE EXCESS 18.3 mmol/L (-2.0-3.0); ABG HCO3 43.5 mmol/L (22.0-26.0); ABG OXYGEN SATURATION 81.4 % (95-98); ABG PCO2 (T) 55.5 mmHg (32.0-45.0); ABG PH (T) 7.511 (7.350-7.450); ALLEN'S TEST Positive; FCOHb 0.3 % (0.5-1.5); FMetHb 0.1 % (0.3-1.12); FO2Hb 81.1 % (94-100); MINUTE VOLUME 7 L/min; PATIENT TEMPERATURE 36.8; PEEP 8 cm H2O; RESPIRATORY RATE 20 b/min; RESPIRATORY RATE (OBSERVED) 20 b/min; TIDAL VOLUME 350 mL; TOTAL HEMOGLOBIN 8.8 G/dl (12.0-16.0)
--- NOTE | 2019-02-17 03:18 | NUR ---
Call placed to Edmund Pham with K+ results 2.5 and ABG results: PH 7.51 PCO2 55.5 PO2 46 HCO3 43.5 BE 18.3 Potassium replacement as ordered. FIO2 now changed from 40% to 50%.
[2019-02-17] MEDS: FENTANYL-0.9 % NACL/PF 100 ML IV PRN ×2 (04:10→18:04)
--- NOTE | 2019-02-17 06:33 | NUR ---
Patient in room CICU 2011. I have received report from Carolina and had the opportunity to ask questions and assume patient care.
[2019-02-17] MEDS: ESOMEPRAZOLE 40 MG VIAL IV SCH ×2 (07:27→20:46)
[2019-02-17] MEDS: methylnaltrexone br 12mg/0.6ml inj***SubQ only SQ SCH (07:27)
[2019-02-17] MEDS: valproate sod 250mg/5ml UD oral syrup CORPAK SCH ×2 (07:27→20:46)
[2019-02-17] MEDS: pyridoxine 50mg tablet CORPAK SCH (07:28)
[2019-02-17] MEDS: quetiapine 100mg tablet CORPAK SCH ×2 (07:28→20:45)
[2019-02-17] MEDS: fluvoxamine 25 MG tablet CORPAK SCH ×2 (07:28→20:45)
[2019-02-17] MEDS: metoprolol tartrate 25mg tablet CORPAK SCH ×2 (07:28→20:53)
[2019-02-17] MEDS: lactobacillus rhamnosus 10,000 MMU CELLS/CAPSULE OGT SCH ×2 (07:28→20:45)
[2019-02-17] MEDS: levoTHYROXINE 25mcg tablet CORPAK SCH (07:28)
[2019-02-17] MEDS: aripiprazole 5mg tablet CORPAK SCH (07:28)
[2019-02-17] MEDS: ferrous sulfate 300mg/5ml UD oral liquid CORPAK SCH (07:29)
[2019-02-17] MEDS: nystatin 15 GM powder TP SCH ×3 (07:29→20:47)
[2019-02-17] MEDS: heparin, porcine 5000 units/ml vial SQ SCH ×2 (07:30→20:48)
[2019-02-17] MEDS: docusate sodium 100mg/10ml UD cup CORPAK SCH ×2 (08:00→20:00)
--- NOTE | 2019-02-17 11:00 | NUR ---
1000 rounds- peep now at 5, case management to f/u on documents needed to pursue trach approval through the court or definitive answer if MD can pursue. Patient worked with PT, sat up at side of bed with nrsg and PT. Pt sitting in bed in chair position.
--- NOTE | 2019-02-17 18:28 | NUR ---
Problems reprioritized. Patient report given, questions answered & plan of care reviewed with Carolina.
[2019-02-17] MEDS: hydrOXYzine 25 MG tablet CORPAK SCH (20:45)
[2019-02-17] MEDS: polyethylene glycol 3350 17gm powd pack CORPAK SCH (20:47)
--- NOTE | 2019-02-17 21:00 | NUR ---
Patient restless, pulled out wallace catheter with bulb inflated using her feet. Wallace catheter replaced #16F with temp probe.
[2019-02-18] VITALS (22 sets, daily range): BP systolic 82–122; BP diastolic 42–86
[2019-02-18] MEDS: furosemide 40mg/4ml inj IV SCH ×3 (00:07→10:48)
[2019-02-18] MEDS: mineral oil/petrolatum ophthal oint EACHEYE SCH ×7 (01:50→20:33)
[2019-02-18] MEDS: methylPREDNISolone sod succ 125mg/2ml vial IV SCH ×4 (02:00→20:27)
[2019-02-18 02:49] LABS: BASOPHILS % (AUTO) 0.1 % (0-1); EOSINOPHILS % (AUTO) 0 % (0-6); HEMATOCRIT 23.2 % (35.0-45.0); LYMPHOCYTES % (AUTO) 9.5 % (21-51); MEAN CORPUSCULAR HEMOGLOBIN 30.7 PG (27.0-31.0); MEAN CORPUSCULAR HGB CONC 34.6 g/dL (33.0-36.5); MEAN CORPUSCULAR VOLUME 88.7 FL (78-98); MEAN PLATELET VOLUME 8.7 FL (7.4-10.4); MONOCYTES # (AUTO) 0.9 X10'3 (0-0.9); MONOCYTES % (AUTO) 8.5 % (2-12); NEUTROPHILS # (AUTO) 8.3 X10'3 (1.8-7.7); NEUTROPHILS % (AUTO) 81.9 % (42-75); PLATELET COUNT 218 X10'3 (140-440); RED BLOOD COUNT 2.62 X10'6 (4.20-5.60); RED CELL DISTRIBUTION WIDTH 18.2 % (11.5-14.5); WHITE BLOOD COUNT 10.2 X10'3 (4.5-11.0)
[2019-02-18] MEDS: ipratropium/albuterol 3ml nebule NEB SCH ×5 (02:52→19:28)
[2019-02-18 02:56] LABS: ALBUMIN 2.9 G/DL (3.4-5.0); ANION GAP 2 (8-16); BLOOD UREA NITROGEN 57 MG/DL (7-18); BUN/CREATININE RATIO 87.7 (6.6-38.0); CALCIUM 9.2 MG/DL (8.5-10.1); CHLORIDE 95 MMOL/L (99-107); CREATININE 0.65 MG/DL (0.40-0.90); GLUCOSE 140 MG/DL (70-104); MAGNESIUM 1.4 MG/DL (1.5-2.4); PHOSPHORUS 2.3 MG/DL (2.3-4.5); SODIUM 139 MMOL/L (135-145); eGFR 90 ML/MIN
[2019-02-18 03:01] LABS: TOTAL CARBON DIOXIDE 42.5 MMOL/L (24-32)
[2019-02-18] MEDS: potassium Cl 20mEq/100mL bag 100 ML IV PRN ×4 (03:05→06:10)
[2019-02-18] MEDS: magnesium 2GM in 50ml NS 50 ML IV PRN (03:12)
[2019-02-18 03:16] LABS: ABG BASE EXCESS 18.9 mmol/L (-2.0-3.0); ABG HCO3 42.2 mmol/L (22.0-26.0); ABG OXYGEN SATURATION 92.1 % (95-98); ALLEN'S TEST Positive; FCOHb 0.3 % (0.5-1.5); FMetHb 0.3 % (0.3-1.12); MINUTE VOLUME 10 L/min; PEEP 5 cm H2O; RESPIRATORY RATE 20 b/min; RESPIRATORY RATE (OBSERVED) 22 b/min; TIDAL VOLUME 428 mL
--- NOTE | 2019-02-18 03:40 | NUR ---
Call placed to Edmund Pham regarding critical lab values & concern regarding routine potassium replacement while on lasix. ABG results also reported with decrease in FIO2 to 40% PH 7.556 PC02 49.7 P02 76 HC03 42.2 BE 18.9 K+ & magnesium replacement in progress.
[2019-02-18 04:11] LABS: ANISOCYTOSIS 2+; HYPOCHROMASIA 1+; PLATELET ESTIMATE NORMAL; TOTAL CELLS COUNTED 100
--- NOTE | 2019-02-18 04:25 | NUR ---
Corrected ABG with correct temp 36.9 PH 7.60 PC02 43.6 P02 62.2 pt placed back on 50% FI02 HC03 42.2 BE 18.9 Results called to Edmund Pham
[2019-02-18 05:23] LABS: ABG PCO2 (T) 43.6 mmHg (32.0-45.0); ABG PH (T) 7.604 (7.350-7.450); ABG PO2 (T) 62.2 mmHg (83-108); PATIENT TEMPERATURE 36.9
[2019-02-18 05:25] LABS: FO2Hb 91.5 % (94-100)
[2019-02-18] MEDS: magnesium 4gm in 100ml NS 100 ML IV PRN (05:26)
[2019-02-18] MEDS: normal saline 1000ml 1,000 ML IV SCH (06:04)
[2019-02-18] MEDS: midazolam 100mg in NS 100ml 100 ML IV PRN (06:07)
--- NOTE | 2019-02-18 06:45 | NUR ---
Problems reprioritized. Patient report given, questions answered & plan of care reviewed with Harshil STAPLES.
--- NOTE | 2019-02-18 06:55 | NUR ---
Patient in room CICU 2011. I have received report from Carolina STAPLES and had the opportunity to ask questions and assume patient care.
[2019-02-18] MEDS: FENTANYL-0.9 % NACL/PF 100 ML IV PRN (08:31)
[2019-02-18] MEDS ORDERED: acetaZOLAMIDE IV 500mg inj IV ONE (09:25)
[2019-02-18] MEDS: valproate sod 250mg/5ml UD oral syrup CORPAK SCH ×2 (10:10→20:30)
[2019-02-18] MEDS: nystatin 15 GM powder TP SCH ×3 (10:10→20:34)
[2019-02-18] MEDS: hydrOXYzine 25 MG tablet CORPAK SCH (10:11)
[2019-02-18] MEDS: ESOMEPRAZOLE 40 MG VIAL IV SCH ×2 (10:11→20:30)
[2019-02-18] MEDS: fluvoxamine 25 MG tablet CORPAK SCH ×2 (10:11→20:33)
[2019-02-18] MEDS: aripiprazole 5mg tablet CORPAK SCH (10:11)
[2019-02-18] MEDS: quetiapine 100mg tablet CORPAK SCH ×2 (10:12→20:30)
[2019-02-18] MEDS: levoTHYROXINE 25mcg tablet CORPAK SCH (10:12)
[2019-02-18] MEDS: ferrous sulfate 300mg/5ml UD oral liquid CORPAK SCH (10:13)
[2019-02-18] MEDS: heparin, porcine 5000 units/ml vial SQ SCH ×2 (10:13→20:29)
[2019-02-18] MEDS: lactobacillus rhamnosus 10,000 MMU CELLS/CAPSULE OGT SCH ×2 (10:13→20:00)
[2019-02-18] MEDS: docusate sodium 100mg/10ml UD cup CORPAK SCH ×2 (10:13→20:00)
[2019-02-18] MEDS: metoprolol tartrate 25mg tablet CORPAK SCH ×2 (10:13→10:17)
[2019-02-18] MEDS: pyridoxine 50mg tablet CORPAK SCH (10:14)
--- NOTE | 2019-02-18 11:47 | NUR ---
reassessment: Pt tolerating TF at goal. No residuals noted. Weaning parameters today w/ potential future extubation tomorrow if continues to improve per MD. IF extubated will need TRAINING TECHNICIAN BSS prior to diet advancement. Will continue to monitor. Recommend: 1. continuous TF per OG tube as able at goal rate of 65 ml/hr to provide 1560 ml,1872 gilmar, 117 g protein, and 1265 ml water. 2. additional water flush 200 ml Q4H 3. daily wt, prealbumin q Saturday and 4. When extubated, BSS prior to diet advancement d/t dysphagia 5. Routine bowel care Addendum: 02/18/19 at [address] Amended: Links added.
[2019-02-18 15:33] LABS: POTASSIUM 2.8 MMOL/L (3.5-5.1)
--- NOTE | 2019-02-18 15:33 | NUR ---
Lab called with critical K 2.8. Will continue to replace.
[2019-02-18] MEDS: potassium Cl oral solution 20 MEQ/15 ML CORPAK PRN ×2 (15:44→20:42)
[2019-02-18] MEDS: acetaZOLAMIDE IV 500mg inj IV SCH (16:53)
--- NOTE | 2019-02-18 18:25 | NUR ---
Patient in room CICU 2011. I have received report from Harshil STAPLES and had the opportunity to ask questions and assume patient care. Patient remains intubated ETT secured with anchorfast. On IV sedation fentanyl & versed. PICC line is transduced, zeroed. No distress.
--- NOTE | 2019-02-18 18:25 | NUR ---
Problems reprioritized. Patient report given, questions answered & plan of care reviewed with PEPPER STAPLES.
[2019-02-18] MEDS: polyethylene glycol 3350 17gm powd pack CORPAK SCH (20:33)
[2019-02-18] MEDS: NORepinephrine 8mg/ 250ml NS 250 ML IV SCH (21:45)
[2019-02-19] VITALS (23 sets, daily range): BP systolic 87–121; BP diastolic 40–56
[2019-02-19] MEDS: furosemide 40mg/4ml inj IV SCH
[2019-02-19] MEDS: ipratropium/albuterol 3ml nebule NEB SCH ×7 (00:11→23:00)
[2019-02-19] MEDS: potassium Cl oral solution 20 MEQ/15 ML CORPAK PRN (00:32)
[2019-02-19] MEDS: acetaZOLAMIDE IV 500mg inj IV SCH ×3 (00:42→16:51)
[2019-02-19] MEDS: FENTANYL-0.9 % NACL/PF 100 ML IV PRN ×2 (01:28→05:10)
[2019-02-19] MEDS: mineral oil/petrolatum ophthal oint EACHEYE SCH ×8 (02:00→19:34)
[2019-02-19] MEDS: normal saline 1000ml 1,000 ML IV SCH (02:22)
[2019-02-19] MEDS: methylPREDNISolone sod succ 125mg/2ml vial IV SCH ×3 (02:27→20:59)
[2019-02-19 03:40] LABS: ALBUMIN 2.8 G/DL (3.4-5.0); ANION GAP 3 (8-16); BLOOD UREA NITROGEN 59 MG/DL (7-18); BUN/CREATININE RATIO 98.3 (6.6-38.0); CALCIUM 8.8 MG/DL (8.5-10.1); CHLORIDE 102 MMOL/L (99-107); GLUCOSE 150 MG/DL (70-104); MAGNESIUM 2.3 MG/DL (1.5-2.4); PHOSPHORUS 3.1 MG/DL (2.3-4.5); POTASSIUM 3.5 MMOL/L (3.5-5.1); SODIUM 140 MMOL/L (135-145); TOTAL CARBON DIOXIDE 34.7 MMOL/L (24-32); eGFR > 90 ML/MIN
[2019-02-19 03:41] LABS: ABG BASE EXCESS 5.8 mmol/L (-2.0-3.0); ABG OXYGEN SATURATION 89.7 % (95-98); ABG PCO2 (T) 47.5 mmHg (32.0-45.0); ABG PH (T) 7.431 (7.350-7.450); ABG PO2 (T) 61.3 mmHg (83-108); FCOHb 0.6 % (0.5-1.5); FMetHb 0.3 % (0.3-1.12); FO2Hb 88.9 % (94-100); MINUTE VOLUME 9 L/min; PATIENT TEMPERATURE 36.6; PEEP 5 cm H2O; RESPIRATORY RATE 16 b/min; RESPIRATORY RATE (OBSERVED) 16 b/min; TIDAL VOLUME 543 mL; TOTAL HEMOGLOBIN 9.1 G/dl (12.0-16.0)
[2019-02-19 03:51] LABS: BASOPHILS % (AUTO) 0.1 % (0-1); EOSINOPHILS % (AUTO) 0 % (0-6); HEMATOCRIT 25.1 % (35.0-45.0); HEMOGLOBIN 8.3 g/dl (12.0-16.0); LYMPHOCYTES # (AUTO) 0.9 X10'3 (1.1-4.8); LYMPHOCYTES % (AUTO) 11.5 % (21-51); MEAN CORPUSCULAR HEMOGLOBIN 30.3 PG (27.0-31.0); MEAN CORPUSCULAR HGB CONC 33.1 g/dL (33.0-36.5); MEAN CORPUSCULAR VOLUME 91.6 FL (78-98); MEAN PLATELET VOLUME 9.1 FL (7.4-10.4); MONOCYTES # (AUTO) 0.6 X10'3 (0-0.9); MONOCYTES % (AUTO) 7.8 % (2-12); NEUTROPHILS # (AUTO) 6.3 X10'3 (1.8-7.7); NEUTROPHILS % (AUTO) 80.6 % (42-75); PLATELET COUNT 231 X10'3 (140-440); RED BLOOD COUNT 2.74 X10'6 (4.20-5.60); WHITE BLOOD COUNT 7.8 X10'3 (4.5-11.0)
--- NOTE | 2019-02-19 06:15 | NUR ---
Problems reprioritized. Patient report given, questions answered & plan of care reviewed with Harshil STAPLES.
[2019-02-19 06:45] LABS: PLATELET ESTIMATE NORMAL
[2019-02-19 06:47] LABS: ANISOCYTOSIS 2+; HYPOCHROMASIA 1+
[2019-02-19] MEDS ORDERED: meropenem inj 1 GM in normal saline 100ml IV soln 100 ML IV SCH (08:50)
[2019-02-19] MEDS: heparin, porcine 5000 units/ml vial SQ SCH ×2 (09:49→20:59)
[2019-02-19] MEDS: ferrous sulfate 300mg/5ml UD oral liquid CORPAK SCH (09:50)
[2019-02-19] MEDS: valproate sod 250mg/5ml UD oral syrup CORPAK SCH (09:50)
[2019-02-19] MEDS: levoTHYROXINE 25mcg tablet CORPAK SCH (09:51)
[2019-02-19] MEDS: methylnaltrexone br 12mg/0.6ml inj***SubQ only SQ SCH (09:51)
[2019-02-19] MEDS: ESOMEPRAZOLE 40 MG VIAL IV SCH ×2 (09:51→20:59)
[2019-02-19] MEDS: aripiprazole 5mg tablet CORPAK SCH (09:52)
[2019-02-19] MEDS: pyridoxine 50mg tablet CORPAK SCH (09:52)
[2019-02-19] MEDS: quetiapine 100mg tablet CORPAK SCH ×2 (09:52→20:00)
[2019-02-19] MEDS: fluvoxamine 25 MG tablet CORPAK SCH ×2 (09:52→20:00)
[2019-02-19] MEDS: metoprolol tartrate 25mg tablet CORPAK SCH ×2 (09:53→20:00)
[2019-02-19] MEDS: nystatin 15 GM powder TP SCH ×3 (09:56→21:00)
[2019-02-19] MEDS: lactobacillus rhamnosus 10,000 MMU CELLS/CAPSULE OGT SCH ×2 (09:56→20:00)
[2019-02-19] MEDS: docusate sodium 100mg/10ml UD cup CORPAK SCH ×2 (09:57→19:33)
[2019-02-19] MEDS: furosemide inj 100 ML IV SCH (10:45)
[2019-02-19] MEDS ORDERED: potassium Cl 20 mEq SR tablet PO PRN (11:30)
--- NOTE | 2019-02-19 12:11 | NUR ---
Pt extubated at 10:15, tolerated well, now on 4L NC with sat's >95%
--- NOTE | 2019-02-19 13:10 | NUR ---
pt desating placed on bipap by respiratory.
[2019-02-19] MEDS: potassium Cl 20mEq/100mL bag 100 ML IV PRN ×5 (13:52→21:05)
--- NOTE | 2019-02-19 15:17 | NUR ---
reassessment: Pt extubated pending DOPE DRY HOUSE OPERATOR BSS for diet advancement. NG is out. +2L fluid balance per MD. LBM 02/18 small. Will monitor for DOPE DRY HOUSE OPERATOR recs and additional protein needs s/p extubation. Recommend: 1. advance diet to regular per DOPE DRY HOUSE OPERATOR BSS d/t dysphagia 2. ONS once advanced to PO diet 3. Routine bowel care 4. weekly wts Addendum: 02/19/19 at [address] Amended: Links added.
[2019-02-19 16:48] LABS: MAGNESIUM 1.9 MG/DL (1.5-2.4); POTASSIUM 3.1 MMOL/L (3.5-5.1)
[2019-02-19] MEDS: polyethylene glycol 3350 17gm powd pack CORPAK SCH (19:35)
--- NOTE | 2019-02-19 20:20 | NUR ---
RN Note -MD Communication Called September regarding pt NPO due to failing speech therapy swallow eval and has Depakote PO. Received order to change med to IV.
[2019-02-19] MEDS: hydrOXYzine 25 MG tablet CORPAK SCH (20:38)
[2019-02-19] MEDS ORDERED: NORMAL SALINE IV ONE (20:40)
[2019-02-19] MEDS ORDERED: VALPROATE SOD IV ONE (20:40)
--- NOTE | 2019-02-19 22:05 | NUR ---
RN Note -MD Communication September Roberto present at nurses station reviewing orders. Ok to leave Lasix drip off unless urine drops below hourly output specified in protocol. Will follow-up with Dr. Moreno in am.
[2019-02-19 23:30] LABS: ALBUMIN 3.4 G/DL (3.4-5.0); ANION GAP -1 (8-16); BLOOD UREA NITROGEN 57 MG/DL (7-18); BUN/CREATININE RATIO 85.1 (6.6-38.0); CALCIUM 9.6 MG/DL (8.5-10.1); CHLORIDE 103 MMOL/L (99-107); CREATININE 0.67 MG/DL (0.40-0.90); GLUCOSE 115 MG/DL (70-104); MAGNESIUM 1.8 MG/DL (1.5-2.4); PHOSPHORUS 3.5 MG/DL (2.3-4.5); SODIUM 142 MMOL/L (135-145); TOTAL CARBON DIOXIDE 39.5 MMOL/L (24-32); eGFR 87 ML/MIN
[2019-02-20] VITALS (23 sets, daily range): BP systolic 85–154; BP diastolic 52–83
[2019-02-20] MEDS: acetaZOLAMIDE IV 500mg inj IV SCH ×3 (01:05→08:39)
[2019-02-20] MEDS: mineral oil/petrolatum ophthal oint EACHEYE SCH ×6 (01:05→12:30)
[2019-02-20] MEDS: furosemide inj 100 ML IV SCH (02:10)
[2019-02-20] MEDS: methylPREDNISolone sod succ 125mg/2ml vial IV SCH ×2 (02:14→08:02)
[2019-02-20] MEDS: potassium Cl 20mEq/100mL bag 100 ML IV PRN ×2 (02:15→03:24)
[2019-02-20] MEDS: ipratropium/albuterol 3ml nebule NEB SCH ×6 (03:02→22:34)
[2019-02-20 05:00] LABS: BASOPHILS % (AUTO) 0.1 % (0-1); EOSINOPHILS % (AUTO) 0 % (0-6); HEMATOCRIT 29.2 % (35.0-45.0); HEMOGLOBIN 9.8 g/dl (12.0-16.0); LYMPHOCYTES # (AUTO) 1.1 X10'3 (1.1-4.8); LYMPHOCYTES % (AUTO) 7.3 % (21-51); MEAN CORPUSCULAR HEMOGLOBIN 30.7 PG (27.0-31.0); MEAN CORPUSCULAR HGB CONC 33.6 g/dL (33.0-36.5); MEAN CORPUSCULAR VOLUME 91.3 FL (78-98); MONOCYTES # (AUTO) 0.6 X10'3 (0-0.9); NEUTROPHILS # (AUTO) 13.3 X10'3 (1.8-7.7); NEUTROPHILS % (AUTO) 88.6 % (42-75); PLATELET COUNT 366 X10'3 (140-440); RED CELL DISTRIBUTION WIDTH 18.9 % (11.5-14.5)
[2019-02-20 05:03] LABS: ALBUMIN 3.3 G/DL (3.4-5.0); ANION GAP 4 (8-16); BLOOD UREA NITROGEN 54 MG/DL (7-18); BUN/CREATININE RATIO 91.5 (6.6-38.0); CALCIUM 9.5 MG/DL (8.5-10.1); CHLORIDE 103 MMOL/L (99-107); CREATININE 0.59 MG/DL (0.40-0.90); GLUCOSE 129 MG/DL (70-104); MAGNESIUM 1.8 MG/DL (1.5-2.4); PHOSPHORUS 3.6 MG/DL (2.3-4.5); POTASSIUM 4.2 MMOL/L (3.5-5.1); SODIUM 142 MMOL/L (135-145); TOTAL CARBON DIOXIDE 34.8 MMOL/L (24-32); eGFR > 90 ML/MIN
[2019-02-20] MEDS: docusate sodium 100mg/10ml UD cup CORPAK SCH ×2 (08:00→20:00)
[2019-02-20] MEDS: valproate sod 250mg/5ml UD oral syrup CORPAK SCH (08:02)
[2019-02-20] MEDS: quetiapine 100mg tablet CORPAK SCH ×2 (08:05→20:06)
[2019-02-20] MEDS: heparin, porcine 5000 units/ml vial SQ SCH ×2 (08:05→20:06)
[2019-02-20] MEDS: fluvoxamine 25 MG tablet CORPAK SCH ×2 (08:06→20:06)
[2019-02-20] MEDS: levoTHYROXINE 25mcg tablet CORPAK SCH (08:06)
[2019-02-20] MEDS: pyridoxine 50mg tablet CORPAK SCH (08:06)
[2019-02-20] MEDS: lactobacillus rhamnosus 10,000 MMU CELLS/CAPSULE OGT SCH ×2 (08:06→20:06)
[2019-02-20] MEDS: aripiprazole 5mg tablet CORPAK SCH (08:06)
[2019-02-20] MEDS: metoprolol tartrate 25mg tablet CORPAK SCH ×2 (08:07→20:07)
[2019-02-20] MEDS: ferrous sulfate 300mg/5ml UD oral liquid CORPAK SCH (08:09)
[2019-02-20] MEDS: nystatin 15 GM powder TP SCH ×3 (08:09→20:11)
[2019-02-20] MEDS: ESOMEPRAZOLE 40 MG VIAL IV SCH ×2 (08:39→20:05)
[2019-02-20 08:49] LABS: PLATELET ESTIMATE NORMAL; POLYCHROMASIA 1+
[2019-02-20 08:50] LABS: ANISOCYTOSIS 2+
[2019-02-20] MEDS: normal saline 1000ml 1,000 ML IV SCH (08:52)
[2019-02-20] MEDS ORDERED: valproic acid 250mg capsule CORPAK SCH (11:09)
[2019-02-20 11:34] LABS: ALBUMIN 3.3 G/DL (3.4-5.0); ANION GAP 5 (8-16); BLOOD UREA NITROGEN 53 MG/DL (7-18); BUN/CREATININE RATIO 82.8 (6.6-38.0); CALCIUM 9.6 MG/DL (8.5-10.1); CHLORIDE 106 MMOL/L (99-107); CREATININE 0.64 MG/DL (0.40-0.90); GLUCOSE 147 MG/DL (70-104); SODIUM 143 MMOL/L (135-145); eGFR > 90 ML/MIN
--- NOTE | 2019-02-20 11:42 | NUR ---
Contact with [facility]: Spoke with [facility], Nilesh Austin. She provided information on Milk Product intolerance. This Pt. was given and tolerated well supplemental nutritional products containing milk. Added to her diet for weight loss. Patient base line activity is wheelchair bound for approximately 2 years. Able to preform independent transfers into the chair, onto the toilet, and back to bed.
--- NOTE | 2019-02-20 12:22 | NUR ---
Reassessment: Pt s/p BSS on 02/20 with SERVICES COORDINATOR recs pureed food with nectar thick liquids. Pt documented with ~25% PO intake first meal. Unable to provide ONS at this time d/t pt with active milk allergy in EMR and all NTL ONS contain milk. RN states she contacted [place] where pt came from who states pt with hx of wt loss and tolerated ONS previously and pt gets diarrhea and bloated when she consumes dairy. Likely pt with lactose intolerance rather than allergy to milk. Unable to obtain consent from pt to receive dairy products at this time as pt is A/O x 2 and unable to communicate needs independently at this time per physical assessment. Recommend double protein TID to provide additional food to improve strength. Pt will be able to receive ONS once diet is advanced to thin liquids as these are lactose free. D/w RN d/c'ing active TF order since pt no longer receiving TF. LBM 02/18. Will continue to follow closely. Recommend: 1. advance diet to regular per SERVICES COORDINATOR BSS d/t dysphagia 2. Double protein TID 3. ONS once advanced to thin liquids 4. Routine bowel care 5. weekly wts Addendum: 02/20/19 at [address] Amended: Links added.
[2019-02-20] MEDS: potassium CL 10mEq/100ml bag 100 ML IV PRN ×2 (12:42→15:35)
[2019-02-20] MEDS: meropenem inj 500 MG in normal saline 100ml IV soln 100 ML IV SCH ×2 (14:22→20:08)
--- NOTE | 2019-02-20 18:15 | NUR ---
Patient in room CICU 2011. I have received report from JHOAN Pop and had the opportunity to ask questions and assume patient care. Patient is sitting up in bed, just placed back on Bipap per RN as she was de-sat into the 80's. I will continue to monitor.
[2019-02-20] MEDS ORDERED: methylPREDNISolone sod succ 125mg/2ml vial IV SCH (20:00)
[2019-02-20] MEDS: methylPREDNISolone sod succ/PF 40mg inj. IV SCH (20:05)
[2019-02-20] MEDS: hydrOXYzine 25 MG tablet CORPAK SCH (20:07)
[2019-02-20] MEDS: polyethylene glycol 3350 17gm powd pack CORPAK SCH (20:08)
[2019-02-20] MEDS: VALPROATE SOD IV SCH (20:10)
[2019-02-20] MEDS: NORMAL SALINE IV SCH (20:10)
[2019-02-20] MEDS: potassium Cl oral solution 20 MEQ/15 ML CORPAK PRN (20:11)
[2019-02-21] VITALS (22 sets, daily range): BP systolic 120–155; BP diastolic 57–114
[2019-02-21] MEDS: LORazepam 2 mg/ml vial IV PRN ×2 (01:43→16:51)
[2019-02-21] MEDS: normal saline 1000ml 1,000 ML IV SCH ×2 (01:46→23:57)
[2019-02-21] MEDS: ipratropium/albuterol 3ml nebule NEB SCH ×6 (02:47→22:54)
[2019-02-21] MEDS: meropenem inj 500 MG in normal saline 100ml IV soln 100 ML IV SCH ×4 (02:47→20:17)
[2019-02-21 03:35] LABS: BASOPHILS % (AUTO) 0.1 % (0-1); EOSINOPHILS % (AUTO) 0 % (0-6); HEMATOCRIT 27.2 % (35.0-45.0); LYMPHOCYTES # (AUTO) 1.4 X10'3 (1.1-4.8); LYMPHOCYTES % (AUTO) 7.8 % (21-51); MEAN CORPUSCULAR HEMOGLOBIN 30.4 PG (27.0-31.0); MEAN CORPUSCULAR VOLUME 92.1 FL (78-98); MEAN PLATELET VOLUME 7.7 FL (7.4-10.4); MONOCYTES # (AUTO) 1.2 X10'3 (0-0.9); MONOCYTES % (AUTO) 6.5 % (2-12); NEUTROPHILS # (AUTO) 15.5 X10'3 (1.8-7.7); NEUTROPHILS % (AUTO) 85.6 % (42-75); PLATELET COUNT 359 X10'3 (140-440); RED BLOOD COUNT 2.95 X10'6 (4.20-5.60); RED CELL DISTRIBUTION WIDTH 19.1 % (11.5-14.5); WHITE BLOOD COUNT 18.1 X10'3 (4.5-11.0)
[2019-02-21 03:44] LABS: ALBUMIN 3.1 G/DL (3.4-5.0); ANION GAP 5 (8-16); BLOOD UREA NITROGEN 46 MG/DL (7-18); BUN/CREATININE RATIO 83.6 (6.6-38.0); CALCIUM 9.3 MG/DL (8.5-10.1); CHLORIDE 111 MMOL/L (99-107); CREATININE 0.55 MG/DL (0.40-0.90); GLUCOSE 117 MG/DL (70-104); MAGNESIUM 1.7 MG/DL (1.5-2.4); PHOSPHORUS 3.3 MG/DL (2.3-4.5); POTASSIUM 3.5 MMOL/L (3.5-5.1); SODIUM 146 MMOL/L (135-145); TOTAL CARBON DIOXIDE 30.3 MMOL/L (24-32); eGFR > 90 ML/MIN
--- NOTE | 2019-02-21 06:30 | NUR ---
Patient in room CICU 2011. I have received report from JHOAN Garcia and had the opportunity to ask questions and assume patient care.
[2019-02-21] MEDS: docusate sodium 100mg/10ml UD cup CORPAK SCH ×2 (08:00→20:15)
[2019-02-21] MEDS: methylnaltrexone br 12mg/0.6ml inj***SubQ only SQ SCH (08:00)
[2019-02-21] MEDS: quetiapine 100mg tablet CORPAK SCH ×2 (08:21→20:19)
[2019-02-21] MEDS: levoTHYROXINE 25mcg tablet CORPAK SCH (08:22)
[2019-02-21] MEDS: aripiprazole 5mg tablet CORPAK SCH (08:22)
[2019-02-21] MEDS: fluvoxamine 25 MG tablet CORPAK SCH ×2 (08:22→20:20)
[2019-02-21] MEDS: pyridoxine 50mg tablet CORPAK SCH (08:23)
[2019-02-21] MEDS: lactobacillus rhamnosus 10,000 MMU CELLS/CAPSULE OGT SCH ×2 (08:23→20:18)
[2019-02-21] MEDS: metoprolol tartrate 25mg tablet CORPAK SCH ×2 (08:23→20:19)
[2019-02-21] MEDS: nystatin 15 GM powder TP SCH ×3 (08:25→20:20)
[2019-02-21] MEDS: ferrous sulfate 325mg tablet PO SCH (08:25)
[2019-02-21] MEDS: acetaminophen 325mg/10.15ml oral unit dose solution CORPAK PRN ×2 (08:32→16:24)
[2019-02-21] MEDS: ESOMEPRAZOLE 40 MG VIAL IV SCH ×2 (08:48→20:16)
[2019-02-21] MEDS: methylPREDNISolone sod succ/PF 40mg inj. IV SCH ×2 (08:51→20:17)
[2019-02-21] MEDS: heparin, porcine 5000 units/ml vial SQ SCH ×2 (09:02→20:18)
[2019-02-21 09:41] LABS: ANISOCYTOSIS 2+; PLATELET ESTIMATE NORMAL; POIKILOCYTOSIS FEW; POLYCHROMASIA FEW; SCHISTOCYTES FEW
[2019-02-21] MEDS ORDERED: POTASSIUM BICARB 20meq eff tab 20 MEQ TABLET.EFF PO PRN ×2 (10:08→10:09)
[2019-02-21] MEDS: valproate sod 250mg/5ml UD oral syrup CORPAK SCH (11:12)
[2019-02-21] MEDS: POTASSIUM BICARB 20meq eff tab 20 MEQ TABLET.EFF PO PRN ×3 (12:15→20:16)
[2019-02-21 13:05] LABS: ABG BASE EXCESS 0.4 mmol/L (-2.0-3.0); ABG HCO3 24.6 mmol/L (22.0-26.0); ABG OXYGEN SATURATION 90.3 % (95-98); ABG PCO2 (T) 37.6 mmHg (32.0-45.0); ABG PH (T) 7.433 (7.350-7.450); ABG PO2 (T) 60.7 mmHg (83-108); ALLEN'S TEST Positive; FCOHb 0.6 % (0.5-1.5); FLOW 3 L/min; FMetHb 0.3 % (0.3-1.12); FO2Hb 89.5 % (94-100)
--- NOTE | 2019-02-21 16:15 | NUR ---
pt sating >90% on 3L NC humidified throughout the day. Occasionally gets mildly anxious and desats in the 80's. pt repositioned and encouraged to breathe and do IS and flutter and O2 increases to 90's. Just walked into pts room d/t monitor reading O2 sat in 70's. see pt repositioning nasal canula on face and pt slumped in the bed. Replaced nasal canula and turned up O2 to 5L and sat pt up in bed and repositioned. Pt complaining of pain in back. Tylenol administered. O2 sats remain in 70's after getting pt comfortable and sitting up in bed. Pt appears to be air hungry and anxious. Placed pt on Bipap at 40% FiO2 and O2 sat quickly increased to 90's. Pt now appears to be more comfortable sating 96% on Bipap @ 40%.
--- NOTE | 2019-02-21 18:30 | NUR ---
Patient in room CICU 2011. I have received report from JHOAN Mcdaniel and had the opportunity to ask questions and assume patient care. Patient with BiPap at 40% FiO2, patient is still moving around in bed with her upper extremities. Patient repositioned. Oxygen saturating 90%. respiratory rate elevated, BiPap mask repositioned with improvement in respiratory rate. Patient is awake and makes eye contact when spoken to. PICC line in place to Left Upper arm with Normal saline at 50 ml/hr.
[2019-02-21] MEDS: VALPROATE SOD IV SCH (20:17)
[2019-02-21] MEDS: NORMAL SALINE IV SCH (20:17)
[2019-02-21] MEDS: hydrOXYzine 25 MG tablet CORPAK SCH (20:19)
[2019-02-21] MEDS: polyethylene glycol 3350 17gm powd pack CORPAK SCH (21:00)
[2019-02-22] VITALS (24 sets, daily range): BP systolic 111–173; BP diastolic 55–96
--- NOTE | 2019-02-22 | NUR ---
Patient is cooperative with care throughout shift, very pleasant. Is able to communicate when she needed to use the toilet, before a bedpan could be placed patient was incontinent of urine. Patient assisted with turns in the bed to assist with clean up.
[2019-02-22] MEDS: meropenem inj 500 MG in normal saline 100ml IV soln 100 ML IV SCH ×4 (02:02→19:26)
[2019-02-22] MEDS: ipratropium/albuterol 3ml nebule NEB SCH ×6 (02:43→23:00)
--- NOTE | 2019-02-22 03:45 | NUR ---
Patient having increased pulse rate and respiratory. Oxygen saturation 85-85%. Patient repositioned, instructed to deep breath patient with occasional cough. Without change in oxygen saturation or vital signs. Patient placed back on BiPAP at 40% with improvement in oxygen saturation to 96%. Decreased respiratory rate and decreased heart rate. Will continue to monitor.
[2019-02-22 04:13] LABS: ANION GAP 4 (8-16); BLOOD UREA NITROGEN 33 MG/DL (7-18); CHLORIDE 114 MMOL/L (99-107); CREATININE 0.55 MG/DL (0.40-0.90); GLUCOSE 118 MG/DL (70-104); POTASSIUM 4.2 MMOL/L (3.5-5.1); SODIUM 148 MMOL/L (135-145); TOTAL CARBON DIOXIDE 29.6 MMOL/L (24-32)
[2019-02-22 04:14] LABS: CALCIUM 8.9 MG/DL (8.5-10.1); MAGNESIUM 1.7 MG/DL (1.5-2.4); PHOSPHORUS 2.6 MG/DL (2.3-4.5); eGFR > 90 ML/MIN
--- NOTE | 2019-02-22 04:15 | NUR ---
Patient increasingly restless, pulling at BiPap, lines and monitor leads. Patient is attempting to get out of bed. Patient re directed many times with the behavior continuing. Ativan to be administered per MD orders. Will continue to monitor.
[2019-02-22] MEDS: LORazepam 2 mg/ml vial IV PRN ×2 (04:18→16:28)
[2019-02-22 05:47] LABS: BASOPHILS % (AUTO) 0.1 % (0-1); EOSINOPHILS % (AUTO) 0.1 % (0-6); HEMATOCRIT 26.2 % (35.0-45.0); HEMOGLOBIN 8.7 g/dl (12.0-16.0); LYMPHOCYTES # (AUTO) 1.2 X10'3 (1.1-4.8); LYMPHOCYTES % (AUTO) 8.4 % (21-51); MEAN CORPUSCULAR HEMOGLOBIN 30.6 PG (27.0-31.0); MEAN CORPUSCULAR HGB CONC 33.2 g/dL (33.0-36.5); MEAN CORPUSCULAR VOLUME 92.3 FL (78-98); MEAN PLATELET VOLUME 7.8 FL (7.4-10.4); MONOCYTES # (AUTO) 0.8 X10'3 (0-0.9); MONOCYTES % (AUTO) 5.4 % (2-12); PLATELET COUNT 335 X10'3 (140-440); RED BLOOD COUNT 2.84 X10'6 (4.20-5.60)
--- NOTE | 2019-02-22 06:34 | NUR ---
Patient in room CICU 2011. I have received report from Rebecca STAPLES and had the opportunity to ask questions and assume patient care.
--- NOTE | 2019-02-22 06:34 | NUR ---
Problems reprioritized. Patient report given, questions answered & plan of care reviewed with JHOAN Hernandez.
[2019-02-22] MEDS: ferrous sulfate 325mg tablet PO SCH (07:57)
[2019-02-22] MEDS: levoTHYROXINE 25mcg tablet CORPAK SCH (07:58)
[2019-02-22] MEDS: pyridoxine 50mg tablet CORPAK SCH (07:58)
[2019-02-22] MEDS: metoprolol tartrate 25mg tablet CORPAK SCH ×2 (07:58→19:27)
[2019-02-22] MEDS: lactobacillus rhamnosus 10,000 MMU CELLS/CAPSULE OGT SCH ×2 (07:58→19:28)
[2019-02-22] MEDS: aripiprazole 5mg tablet CORPAK SCH (07:58)
[2019-02-22] MEDS: fluvoxamine 25 MG tablet CORPAK SCH ×2 (07:58→19:28)
[2019-02-22] MEDS: methylPREDNISolone sod succ/PF 40mg inj. IV SCH ×2 (07:59→19:27)
[2019-02-22] MEDS: docusate sodium 100mg/10ml UD cup CORPAK SCH ×3 (07:59→20:00)
[2019-02-22] MEDS: quetiapine 100mg tablet CORPAK SCH ×2 (07:59→19:27)
[2019-02-22] MEDS: ESOMEPRAZOLE 40 MG VIAL IV SCH ×2 (07:59→19:27)
[2019-02-22] MEDS: valproate sod 250mg/5ml UD oral syrup CORPAK SCH (08:09)
[2019-02-22] MEDS: nystatin 15 GM powder TP SCH ×3 (08:19→20:37)
[2019-02-22] MEDS: heparin, porcine 5000 units/ml vial SQ SCH ×2 (08:20→19:28)
--- NOTE | 2019-02-22 18:12 | NUR ---
Problems reprioritized. Patient report given, questions answered & plan of care reviewed with Rebecca STAPLES.
--- NOTE | 2019-02-22 18:15 | NUR ---
Patient in room CICU 2011. I have received report from JHOAN Hernandez and had the opportunity to ask questions and assume patient care.
[2019-02-22] MEDS: hydrOXYzine 25 MG tablet CORPAK SCH (20:01)
[2019-02-22] MEDS: polyethylene glycol 3350 17gm powd pack CORPAK SCH (20:01)
[2019-02-22] MEDS: NORMAL SALINE IV SCH (20:37)
[2019-02-22] MEDS: VALPROATE SOD IV SCH (20:37)
[2019-02-22] MEDS: normal saline 1000ml 1,000 ML IV SCH (20:39)
--- NOTE | 2019-02-22 22:00 | NUR ---
1830 - 0: Patient assisted with dinner, Patient's oxygen desaturating to the 70's while eating. Frequent breaks given oxygen turned up to 6 lpm via nasal cannula. Patient placed on BiPap mask intermittently with FiO2 40%. patient with improvement to oxygen saturation in the high 90's. Oxygen saturation finger probe replaced x2. Patient is picking and pulling at lines and leads. Patient in view of RN and requires frequent instruction to stop pulling at lines. Patient removes BiPap mask on her own and is refusing to place back on face. Patient placed on nasal cannula with tolerance and oxygen saturation in the 90's. Medications administered crushed in apple sauce during the 6875-3373 hour. Patient tolerated well. Will continue to monitor patient.
[2019-02-23] VITALS (19 sets, daily range): BP systolic 114–164; BP diastolic 43–112
[2019-02-23] MEDS: meropenem inj 500 MG in normal saline 100ml IV soln 100 ML IV SCH ×4 (02:39→20:02)
[2019-02-23] MEDS: ipratropium/albuterol 3ml nebule NEB SCH ×6 (03:10→23:29)
[2019-02-23 04:25] LABS: ALBUMIN 3.2 G/DL (3.4-5.0); ANION GAP 3 (8-16); BLOOD UREA NITROGEN 26 MG/DL (7-18); BUN/CREATININE RATIO 55.3 (6.6-38.0); CALCIUM 9.1 MG/DL (8.5-10.1); CHLORIDE 113 MMOL/L (99-107); CREATININE 0.47 MG/DL (0.40-0.90); GLUCOSE 116 MG/DL (70-104); MAGNESIUM 1.7 MG/DL (1.5-2.4); PHOSPHORUS 2.9 MG/DL (2.3-4.5); POTASSIUM 3.8 MMOL/L (3.5-5.1); SODIUM 147 MMOL/L (135-145); TOTAL CARBON DIOXIDE 31.4 MMOL/L (24-32); eGFR > 90 ML/MIN
[2019-02-23 04:26] LABS: BASOPHILS % (AUTO) 0.1 % (0-1); EOSINOPHILS % (AUTO) 0.2 % (0-6); HEMATOCRIT 27.1 % (35.0-45.0); HEMOGLOBIN 8.9 g/dl (12.0-16.0); LYMPHOCYTES # (AUTO) 1.6 X10'3 (1.1-4.8); LYMPHOCYTES % (AUTO) 11.8 % (21-51); MEAN CORPUSCULAR HEMOGLOBIN 30.7 PG (27.0-31.0); MEAN CORPUSCULAR HGB CONC 32.9 g/dL (33.0-36.5); MEAN CORPUSCULAR VOLUME 93.2 FL (78-98); MEAN PLATELET VOLUME 7.4 FL (7.4-10.4); MONOCYTES # (AUTO) 0.7 X10'3 (0-0.9); MONOCYTES % (AUTO) 4.9 % (2-12); NEUTROPHILS # (AUTO) 11.6 X10'3 (1.8-7.7); PLATELET COUNT 335 X10'3 (140-440); RED BLOOD COUNT 2.91 X10'6 (4.20-5.60); RED CELL DISTRIBUTION WIDTH 20.2 % (11.5-14.5)
[2019-02-23] MEDS: POTASSIUM BICARB 20meq eff tab 20 MEQ TABLET.EFF PO PRN ×2 (05:09→05:18)
--- NOTE | 2019-02-23 05:45 | NUR ---
Patient Pulled PICC line out. Charge nurse notified, line intact, line has been trimmed prior to insertion per charge lpn. Pressure to left upper arm. September Roberto, ADRIANNA notified. PIV attemted x3 without success.
--- NOTE | 2019-02-23 06:20 | NUR ---
Patient in room CICU 2011. I have received report from Rebecca STAPLES and had the opportunity to ask questions and assume patient care.
--- NOTE | 2019-02-23 06:30 | NUR ---
Problems reprioritized. Patient report given, questions answered & plan of care reviewed with JHOAN Mckeon.
[2019-02-23] MEDS: metoprolol tartrate 25mg tablet CORPAK SCH (07:45)
[2019-02-23] MEDS: pyridoxine 50mg tablet CORPAK SCH (07:46)
[2019-02-23] MEDS: fluvoxamine 25 MG tablet CORPAK SCH ×2 (07:46→19:57)
[2019-02-23] MEDS: levoTHYROXINE 25mcg tablet CORPAK SCH (07:46)
[2019-02-23] MEDS: aripiprazole 5mg tablet CORPAK SCH (07:46)
[2019-02-23] MEDS: quetiapine 100mg tablet CORPAK SCH ×2 (07:46→19:57)
[2019-02-23] MEDS: ferrous sulfate 325mg tablet PO SCH (07:46)
[2019-02-23] MEDS: lactobacillus rhamnosus 10,000 MMU CELLS/CAPSULE OGT SCH ×2 (07:46→19:57)
[2019-02-23] MEDS: docusate sodium 100mg/10ml UD cup CORPAK SCH ×2 (07:46→19:56)
[2019-02-23] MEDS: valproate sod 250mg/5ml UD oral syrup CORPAK SCH (07:47)
[2019-02-23] MEDS: methylnaltrexone br 12mg/0.6ml inj***SubQ only SQ SCH (07:47)
[2019-02-23] MEDS: nystatin 15 GM powder TP SCH ×3 (07:47→20:03)
[2019-02-23] MEDS: heparin, porcine 5000 units/ml vial SQ SCH ×2 (11:11→19:58)
[2019-02-23] MEDS: prednisone 10mg tablet PO SCH (11:11)
[2019-02-23] MEDS: dextrose 5%-water 1,000 ML IV SCH (12:12)
--- NOTE | 2019-02-23 13:02 | NUR ---
Reassessment: now scale shows 29 lbs less than admit weight on bedscale. Patient had weight up to 55 lbs above admit weight. Large weight fluctuation likely d/t fluids and possibly some bedscale weighing error. Per MD note 6 liters removed from patient, will continue to monitor weight. Pt s/p BSS on 02/20 with DINING ROOM HOST recs pureed food with nectar thick liquids. Pt documented with ~50% PO intake since diet advancement, needs assistance to eat. Unable to provide ONS at this time d/t pt with active milk allergy in EMR and all NTL ONS contain milk. RN states she contacted [facility] where pt came from who states pt with hx of wt loss and tolerated ONS previously and pt gets diarrhea and bloated when she consumes dairy. Likely pt with lactose intolerance rather than allergy to milk. Unable to obtain consent from pt to receive dairy products at this time as pt is A/O x 2 and unable to communicate needs independently at this time per physical assessment. Recommend double protein TID to provide additional food to improve strength. Pt will be able to receive ONS once diet is advanced to thin liquids as these are lactose free. D/w RN d/c'ing active TF order since pt no longer receiving TF. LBM 02/23. Will continue to follow closely. Recommend: 1. Continue pureed food and nectar thick liquid per DINING ROOM HOST recs 2. Double protein TID 3. Routine bowel care 4. weekly wts Addendum: 02/23/19 at [address] Amended: Links added.
--- NOTE | 2019-02-23 14:43 | NUR ---
Extended PIV inserted to the right upper arm basilic vein x 3 attempts using ultrasound. Jayden well Addendum: 02/23/19 at 1444 by Geovanna Granados RN Amended: Links added.
[2019-02-23] MEDS ORDERED: metoprolol tartrate 25mg tablet PO ONE (16:20)
[2019-02-23] MEDS: pantoprazole 40mg Tablet.DR PO SCH (16:32)
--- NOTE | 2019-02-23 17:45 | NUR ---
Problems reprioritized. Patient report given, questions answered & plan of care reviewed with Shamika STAPLES.
--- NOTE | 2019-02-23 18:10 | NUR ---
Received report from JHOAN Wick. Patient is awake and alert on 6L NC, in no apparent distress. Call light and items of frequent use within reach. Will continue to monitor. Sitter at bedside.
--- NOTE | 2019-02-23 18:10 | NUR ---
pt brought to unit via wheelchair, placed in room 3019 with sitter. pt in bed, low locked 2x rails up in stable condition. will continue to monitor.
--- NOTE | 2019-02-23 18:31 | NUR ---
Problems reprioritized. Patient report given, questions answered & plan of care reviewed with Adriana STAPLES. Patient stable at transfer of care.
[2019-02-23] MEDS: normal saline 1000ml 1,000 ML IV SCH (18:55)
--- NOTE | 2019-02-23 18:58 | NUR ---
Patient in room PCU 3019. I have received report from JHOAN Wick and had the opportunity to ask questions and assume patient care.
[2019-02-23] MEDS: hydrOXYzine 25 MG tablet CORPAK SCH (20:04)
[2019-02-23] MEDS: polyethylene glycol 3350 17gm powd pack CORPAK SCH (20:05)
[2019-02-23] MEDS: valproate sod 250mg/5ml UD oral syrup PO SCH (20:05)
[2019-02-23] MEDS: metoprolol tartrate 25mg tablet PO SCH (23:37)
[2019-02-24] MEDS: meropenem inj 500 MG in normal saline 100ml IV soln 100 ML IV SCH ×4 (01:25→20:28)
[2019-02-24] MEDS: normal saline 1000ml 1,000 ML IV SCH (01:28)
[2019-02-24 02:00] VITALS: BP 159/109
[2019-02-24] MEDS: ipratropium/albuterol 3ml nebule NEB SCH ×6 (03:04→22:52)
[2019-02-24 06:00] VITALS: BP 166/104
[2019-02-24 06:12] LABS: BASOPHILS % (AUTO) 0.1 % (0-1); EOSINOPHILS # (AUTO) 0.1 X10'3 (0-0.9); EOSINOPHILS % (AUTO) 1.2 % (0-6); HEMOGLOBIN 8.1 g/dl (12.0-16.0); LYMPHOCYTES # (AUTO) 1.9 X10'3 (1.1-4.8); LYMPHOCYTES % (AUTO) 15.7 % (21-51); MEAN CORPUSCULAR HEMOGLOBIN 30.6 PG (27.0-31.0); MEAN CORPUSCULAR HGB CONC 32.3 g/dL (33.0-36.5); MEAN CORPUSCULAR VOLUME 94.7 FL (78-98); MEAN PLATELET VOLUME 7.5 FL (7.4-10.4); MONOCYTES % (AUTO) 7.9 % (2-12); NEUTROPHILS # (AUTO) 9.3 X10'3 (1.8-7.7); NEUTROPHILS % (AUTO) 75.1 % (42-75); PLATELET COUNT 317 X10'3 (140-440); RED BLOOD COUNT 2.64 X10'6 (4.20-5.60); RED CELL DISTRIBUTION WIDTH 21.2 % (11.5-14.5); WHITE BLOOD COUNT 12.4 X10'3 (4.5-11.0)
--- NOTE | 2019-02-24 06:16 | NUR ---
I have reviewed and agree with all interventions, assessments performed and documented by JHOAN Escudero. Reported off to JHOAN Lawrence. Patient appears to be asleep at this time. Sitter at bedside.
--- NOTE | 2019-02-24 06:17 | NUR ---
Problems reprioritized. Patient report given, questions answered & plan of care reviewed with JHOAN Lawrence.
[2019-02-24 06:31] LABS: ALANINE AMINOTRANSFERASE 19 U/L (12-78); ALBUMIN 2.9 G/DL (3.4-5.0); ALBUMIN/GLOBULIN RATIO 0.7 (1.1-1.5); ALKALINE PHOSPHATASE 73 IU/L (46-116); ANION GAP 3 (8-16); ASPARTATE AMINO TRANSFERASE 15 U/L (10-37); BILIRUBIN,TOTAL 0.3 MG/DL (0.1-1.0); BLOOD UREA NITROGEN 20 MG/DL (7-18); BUN/CREATININE RATIO 42.6 (6.6-38.0); CALCIUM 9.2 MG/DL (8.5-10.1); CHLORIDE 108 MMOL/L (99-107); CREATININE 0.47 MG/DL (0.40-0.90); GLUCOSE 126 MG/DL (70-104); POTASSIUM 3.5 MMOL/L (3.5-5.1); SODIUM 144 MMOL/L (135-145); TOTAL CARBON DIOXIDE 33.3 MMOL/L (24-32); TOTAL PROTEIN 7.2 G/DL (6.4-8.2); eGFR > 90 ML/MIN
[2019-02-24] MEDS: docusate sodium 100mg/10ml UD cup CORPAK SCH ×2 (07:29→20:35)
[2019-02-24] MEDS: quetiapine 100mg tablet CORPAK SCH ×2 (07:40→20:42)
[2019-02-24] MEDS: lactobacillus rhamnosus 10,000 MMU CELLS/CAPSULE OGT SCH ×2 (07:40→20:43)
[2019-02-24] MEDS: metoprolol tartrate 25mg tablet PO SCH ×2 (07:40→15:57)
[2019-02-24] MEDS: ferrous sulfate 325mg tablet PO SCH (07:40)
[2019-02-24] MEDS: pyridoxine 50mg tablet CORPAK SCH (07:40)
[2019-02-24] MEDS: levoTHYROXINE 25mcg tablet CORPAK SCH (07:40)
[2019-02-24] MEDS: pantoprazole 40mg Tablet.DR PO SCH ×2 (07:40→17:29)
[2019-02-24] MEDS: aripiprazole 5mg tablet CORPAK SCH (07:41)
[2019-02-24] MEDS: prednisone 10mg tablet PO SCH (07:41)
[2019-02-24] MEDS: valproate sod 250mg/5ml UD oral syrup CORPAK SCH (07:41)
[2019-02-24] MEDS: lisinopril 5mg tablet PO SCH ×2 (07:41→20:42)
[2019-02-24] MEDS: heparin, porcine 5000 units/ml vial SQ SCH ×2 (07:42→20:34)
[2019-02-24] MEDS: nystatin 15 GM powder TP SCH ×3 (08:53→20:46)
[2019-02-24] MEDS: fluvoxamine 25 MG tablet CORPAK SCH ×2 (10:15→22:27)
[2019-02-24] MEDS: dextrose 5%-water 1,000 ML IV SCH (10:16)
--- NOTE | 2019-02-24 10:59 | NUR ---
PAGER ID: [phone] MESSAGE: [phone] [address] [place] Systolic BP 188. JHOAN Lawrence Ext [phone]
[2019-02-24 11:00] VITALS: BP 196/89
[2019-02-24] MEDS: furosemide 20 MG/2 ML vial IV SCH ×2 (12:07→20:37)
[2019-02-24 15:00] VITALS: BP 153/73
[2019-02-24 18:00] VITALS: BP 159/80
--- NOTE | 2019-02-24 18:44 | NUR ---
Problems reprioritized. Patient report given, questions answered & plan of care reviewed with JHOAN Dean.
[2019-02-24] MEDS: hydrOXYzine 25 MG tablet CORPAK SCH (20:43)
[2019-02-24] MEDS: polyethylene glycol 3350 17gm powd pack CORPAK SCH (20:46)
[2019-02-24 22:00] VITALS: BP 164/82
[2019-02-24] MEDS: valproate sod 250mg/5ml UD oral syrup PO SCH (22:26)
[2019-02-25] MEDS: metoprolol tartrate 25mg tablet PO SCH ×3 (00:42→16:34)
[2019-02-25 02:00] VITALS: BP 148/79
[2019-02-25] MEDS: meropenem inj 500 MG in normal saline 100ml IV soln 100 ML IV SCH ×4 (02:00→19:14)
[2019-02-25] MEDS: ipratropium/albuterol 3ml nebule NEB SCH ×6 (03:01→23:00)
[2019-02-25] MEDS: dextrose 5%-water 1,000 ML IV SCH (03:44)
[2019-02-25 06:00] VITALS: BP 142/84
--- NOTE | 2019-02-25 06:23 | NUR ---
Patient in room PCU 3019. I have received report from JHOAN Dean and had the opportunity to ask questions and assume patient care.
--- NOTE | 2019-02-25 06:32 | NUR ---
Problems reprioritized. Patient report given, questions answered & plan of care reviewed with Howard STAPLES.
[2019-02-25] MEDS: furosemide 20 MG/2 ML vial IV SCH ×2 (08:27→19:14)
[2019-02-25 08:31] LABS: ABG BASE EXCESS 10.1 mmol/L (-2.0-3.0); ABG HCO3 36.8 mmol/L (22.0-26.0); ABG OXYGEN SATURATION 92.4 % (95-98); ABG PCO2 (T) 62.1 mmHg (32.0-45.0); ABG PH (T) 7.391 (7.350-7.450); ABG PO2 (T) 66.1 mmHg (83-108); ALLEN'S TEST Positive; FCOHb 0.7 % (0.5-1.5); FLOW 3 L/min; FMetHb 0.3 % (0.3-1.12); FO2Hb 91.5 % (94-100); TOTAL HEMOGLOBIN 10.6 G/dl (12.0-16.0)
[2019-02-25] MEDS: methylnaltrexone br 12mg/0.6ml inj***SubQ only SQ SCH (08:33)
[2019-02-25] MEDS: heparin, porcine 5000 units/ml vial SQ SCH ×2 (08:33→19:14)
[2019-02-25] MEDS: levoTHYROXINE 25mcg tablet CORPAK SCH (08:39)
[2019-02-25] MEDS: pyridoxine 50mg tablet CORPAK SCH (08:40)
[2019-02-25] MEDS: lactobacillus rhamnosus 10,000 MMU CELLS/CAPSULE OGT SCH ×2 (08:40→19:14)
[2019-02-25] MEDS: ferrous sulfate 325mg tablet PO SCH (08:40)
[2019-02-25] MEDS: lisinopril 5mg tablet PO SCH ×2 (08:40→19:14)
[2019-02-25] MEDS: aripiprazole 5mg tablet CORPAK SCH (08:40)
[2019-02-25] MEDS: pantoprazole 40mg Tablet.DR PO SCH ×2 (08:40→16:34)
[2019-02-25] MEDS: prednisone 10mg tablet PO SCH (08:40)
[2019-02-25] MEDS: quetiapine 100mg tablet CORPAK SCH ×2 (08:41→19:14)
[2019-02-25] MEDS: nystatin 15 GM powder TP SCH ×3 (08:49→20:58)
[2019-02-25] MEDS: docusate sodium 100mg/10ml UD cup CORPAK SCH ×2 (09:03→19:14)
[2019-02-25] MEDS: fluvoxamine 25 MG tablet CORPAK SCH ×2 (09:56→19:14)
[2019-02-25] MEDS: valproate sod 250mg/5ml UD oral syrup CORPAK SCH (09:56)
[2019-02-25] MEDS ORDERED: potassium CL 10mEq/100ml bag 100 ML IV PRN (10:05)
[2019-02-25] MEDS ORDERED: magnesium Cl slow-release 64mg tablet PO PRN (10:05)
[2019-02-25] MEDS ORDERED: potassium Cl 20 mEq SR tablet PO PRN (10:05)
[2019-02-25] MEDS ORDERED: magnesium 4gm in 100ml NS 100 ML IV PRN (10:05)
[2019-02-25 11:00] VITALS: BP 135/71
--- NOTE | 2019-02-25 12:00 | NUR ---
Notified Dr Morton of increase in Co2 no new orders.
[2019-02-25 15:00] VITALS: BP 143/78
[2019-02-25 18:00] VITALS: BP 131/74
[2019-02-25] MEDS: valproate sod 250mg/5ml UD oral syrup PO SCH (20:57)
[2019-02-25] MEDS: polyethylene glycol 3350 17gm powd pack CORPAK SCH (20:57)
[2019-02-25] MEDS: hydrOXYzine 25 MG tablet CORPAK SCH (20:58)
[2019-02-25 23:00] VITALS: BP 120/62
[2019-02-26] VITALS (7 sets, daily range): BP systolic 102–121; BP diastolic 49–78
--- NOTE | 2019-02-26 00:15 | NUR ---
Patient in room PCU 3019. I have received report from Howard STAPLES and had the opportunity to ask questions and assume patient care.
--- NOTE | 2019-02-26 00:21 | NUR ---
Problems reprioritized. Patient report given, questions answered & plan of care reviewed with JHONA Palencia.
[2019-02-26] MEDS: meropenem inj 500 MG in normal saline 100ml IV soln 100 ML IV SCH ×4 (01:43→20:11)
[2019-02-26] MEDS: dextrose 5%-water 1,000 ML IV SCH (01:43)
[2019-02-26] MEDS: metoprolol tartrate 25mg tablet PO SCH ×3 (01:45→15:11)
[2019-02-26] MEDS: ipratropium/albuterol 3ml nebule NEB SCH ×6 (03:02→22:48)
[2019-02-26] MEDS: LORazepam 2 mg/ml vial IV PRN (04:52)
[2019-02-26 06:20] LABS: ALANINE AMINOTRANSFERASE 14 U/L (12-78); ALBUMIN 2.9 G/DL (3.4-5.0); ALBUMIN/GLOBULIN RATIO 0.7 (1.1-1.5); ALKALINE PHOSPHATASE 80 IU/L (46-116); ANION GAP -1 (8-16); ASPARTATE AMINO TRANSFERASE 14 U/L (10-37); BILIRUBIN,TOTAL 0.3 MG/DL (0.1-1.0); BLOOD UREA NITROGEN 16 MG/DL (7-18); CALCIUM 8.9 MG/DL (8.5-10.1); CHLORIDE 102 MMOL/L (99-107); CREATININE 0.41 MG/DL (0.40-0.90); GLUCOSE 83 MG/DL (70-104); MAGNESIUM 1.5 MG/DL (1.5-2.4); PHOSPHORUS 2.4 MG/DL (2.3-4.5); SODIUM 140 MMOL/L (135-145); TOTAL PROTEIN 7.2 G/DL (6.4-8.2); eGFR > 90 ML/MIN
[2019-02-26 06:37] LABS: BASOPHILS # (AUTO) 0.1 X10'3 (0-0.2); BASOPHILS % (AUTO) 0.5 % (0-1); EOSINOPHILS # (AUTO) 0.1 X10'3 (0-0.9); EOSINOPHILS % (AUTO) 0.7 % (0-6); HEMATOCRIT 29.6 % (35.0-45.0); HEMOGLOBIN 9.7 g/dl (12.0-16.0); LYMPHOCYTES # (AUTO) 3.1 X10'3 (1.1-4.8); LYMPHOCYTES % (AUTO) 27.7 % (21-51); MEAN CORPUSCULAR HGB CONC 32.9 g/dL (33.0-36.5); MEAN CORPUSCULAR VOLUME 94.2 FL (78-98); MEAN PLATELET VOLUME 8.4 FL (7.4-10.4); MONOCYTES # (AUTO) 1.3 X10'3 (0-0.9); MONOCYTES % (AUTO) 11.9 % (2-12); NEUTROPHILS # (AUTO) 6.7 X10'3 (1.8-7.7); NEUTROPHILS % (AUTO) 59.2 % (42-75); PLATELET COUNT 450 X10'3 (140-440); RED BLOOD COUNT 3.14 X10'6 (4.20-5.60); RED CELL DISTRIBUTION WIDTH 21.7 % (11.5-14.5); WHITE BLOOD COUNT 11.2 X10'3 (4.5-11.0)
[2019-02-26] MEDS: valproate sod 250mg/5ml UD oral syrup CORPAK SCH (08:08)
[2019-02-26] MEDS: ferrous sulfate 325mg tablet PO SCH (08:08)
[2019-02-26] MEDS: docusate sodium 100mg/10ml UD cup CORPAK SCH ×2 (08:08→20:05)
[2019-02-26] MEDS: predniSONE 20 mg tablet PO SCH (08:08)
[2019-02-26] MEDS: quetiapine 100mg tablet CORPAK SCH ×2 (08:09→20:11)
[2019-02-26] MEDS: pyridoxine 50mg tablet CORPAK SCH (08:09)
[2019-02-26] MEDS: pantoprazole 40mg Tablet.DR PO SCH ×2 (08:09→16:48)
[2019-02-26] MEDS: levoTHYROXINE 25mcg tablet CORPAK SCH (08:10)
[2019-02-26] MEDS: lisinopril 5mg tablet PO SCH ×2 (08:12→20:06)
[2019-02-26] MEDS: aripiprazole 5mg tablet CORPAK SCH (08:12)
[2019-02-26] MEDS: fluvoxamine 25 MG tablet CORPAK SCH ×2 (08:12→20:06)
[2019-02-26] MEDS: furosemide 20 MG/2 ML vial IV SCH ×2 (08:13→20:05)
[2019-02-26] MEDS: lactobacillus rhamnosus 10,000 MMU CELLS/CAPSULE OGT SCH ×2 (08:13→20:06)
[2019-02-26] MEDS: nystatin 15 GM powder TP SCH ×3 (08:49→20:31)
[2019-02-26] MEDS: potassium Cl 20 mEq SR tablet PO PRN ×3 (11:36→21:35)
--- NOTE | 2019-02-26 15:25 | NUR ---
reassessment: Pt PO 100% pureed/NTL meals meeting needs. Receiving DEX w/ good PO; TONIO d/w RN for d/c dex per MD approval. K 3.0 receiving lasix as well and hyperglycemia could also contribute for potassium as well as diuretics. Receiving replacement per protocol. Will continue to monitor. Recommend: 1. Continue pureed food and nectar thick liquid per DIRECTOR OF PRODUCT DESIGN recs 2. Double protein TID 3. Routine bowel care 4. weekly wts Addendum: 02/26/19 at [address] Amended: Links added.
--- NOTE | 2019-02-26 18:42 | NUR ---
Problems reprioritized. Patient report given, questions answered & plan of care reviewed with Kimberly STAPLES.
--- NOTE | 2019-02-26 18:52 | NUR ---
Patient in room U 3019. I have received report from JHOAN BANG and had the opportunity to ask questions and assume patient care. Addendum: 02/26/19 at 1852 by Joyce Ojeda RN Amended: Links added.
[2019-02-26] MEDS: valproate sod 250mg/5ml UD oral syrup PO SCH (20:30)
[2019-02-26] MEDS: polyethylene glycol 3350 17gm powd pack CORPAK SCH (20:30)
[2019-02-26] MEDS: hydrOXYzine 25 MG tablet CORPAK SCH (20:31)
[2019-02-27] MEDS: metoprolol tartrate 25mg tablet PO SCH ×4 (01:20→23:49)
[2019-02-27 02:00] VITALS: BP 114/57
[2019-02-27] MEDS: ipratropium/albuterol 3ml nebule NEB SCH ×6 (02:54→23:06)
[2019-02-27] MEDS: meropenem inj 500 MG in normal saline 100ml IV soln 100 ML IV SCH ×2 (04:01→08:50)
[2019-02-27 05:53] LABS: BASOPHILS # (AUTO) 0.1 X10'3 (0-0.2); BASOPHILS % (AUTO) 0.5 % (0-1); EOSINOPHILS # (AUTO) 0.1 X10'3 (0-0.9); HEMOGLOBIN 9.3 g/dl (12.0-16.0); LYMPHOCYTES # (AUTO) 2.9 X10'3 (1.1-4.8); LYMPHOCYTES % (AUTO) 26.7 % (21-51); MEAN CORPUSCULAR HEMOGLOBIN 31.3 PG (27.0-31.0); MEAN CORPUSCULAR HGB CONC 33.1 g/dL (33.0-36.5); MEAN CORPUSCULAR VOLUME 94.7 FL (78-98); MEAN PLATELET VOLUME 8.3 FL (7.4-10.4); MONOCYTES # (AUTO) 1.4 X10'3 (0-0.9); MONOCYTES % (AUTO) 12.6 % (2-12); NEUTROPHILS # (AUTO) 6.3 X10'3 (1.8-7.7); NEUTROPHILS % (AUTO) 59.2 % (42-75); PLATELET COUNT 435 X10'3 (140-440); RED BLOOD COUNT 2.95 X10'6 (4.20-5.60); RED CELL DISTRIBUTION WIDTH 22.1 % (11.5-14.5); WHITE BLOOD COUNT 10.7 X10'3 (4.5-11.0)
[2019-02-27 05:58] LABS: ALANINE AMINOTRANSFERASE 11 U/L (12-78); ALBUMIN 2.7 G/DL (3.4-5.0); ALBUMIN/GLOBULIN RATIO 0.7 (1.1-1.5); ALKALINE PHOSPHATASE 75 IU/L (46-116); ANION GAP -1 (8-16); ASPARTATE AMINO TRANSFERASE 7 U/L (10-37); BILIRUBIN,TOTAL 0.3 MG/DL (0.1-1.0); BLOOD UREA NITROGEN 18 MG/DL (7-18); BUN/CREATININE RATIO 41.9 (6.6-38.0); CALCIUM 8.9 MG/DL (8.5-10.1); CHLORIDE 103 MMOL/L (99-107); CREATININE 0.43 MG/DL (0.40-0.90); GLUCOSE 85 MG/DL (70-104); MAGNESIUM 1.4 MG/DL (1.5-2.4); PHOSPHORUS 2.5 MG/DL (2.3-4.5); POTASSIUM 3.9 MMOL/L (3.5-5.1); SODIUM 142 MMOL/L (135-145); TOTAL PROTEIN 6.8 G/DL (6.4-8.2); eGFR > 90 ML/MIN
[2019-02-27 06:00] VITALS: BP 111/54
[2019-02-27 06:14] LABS: TOTAL CARBON DIOXIDE 40.4 MMOL/L (24-32)
--- NOTE | 2019-02-27 06:17 | NUR ---
Problems reprioritized. Patient report given, questions answered & plan of care reviewed with JHOAN Schulz. Addendum: 02/27/19 at 0618 by Joyce Ojeda RN Amended: Links added.
--- NOTE | 2019-02-27 06:24 | NUR ---
bhavin Last for critical lab CO2 40.4, no response at this time, Zhanna STAPLES day shift made aware Addendum: 02/27/19 at 0625 by Joyce Ojdea RN Amended: Links added.
[2019-02-27] MEDS: nystatin 15 GM powder TP SCH ×3 (08:00→21:00)
[2019-02-27] MEDS: levoTHYROXINE 25mcg tablet CORPAK SCH (08:00)
[2019-02-27] MEDS ORDERED: dextrose ORAL solution 15 GM/59 ML bottle PO PRN ×2 (08:03→08:05)
[2019-02-27] MEDS ORDERED: magnesium hydroxide 30ml (MOM) UD suspension PO PRN (08:07)
[2019-02-27] MEDS ORDERED: lactulose 20gm/30ml cup PO PRN (08:07)
[2019-02-27] MEDS: furosemide 20 MG/2 ML vial IV SCH (08:50)
[2019-02-27] MEDS: methylnaltrexone br 12mg/0.6ml inj***SubQ only SQ SCH (08:50)
[2019-02-27] MEDS: ferrous sulfate 325mg tablet PO SCH (08:52)
[2019-02-27] MEDS: quetiapine 100mg tablet CORPAK SCH (08:52)
[2019-02-27] MEDS: predniSONE 20 mg tablet PO SCH (08:53)
[2019-02-27] MEDS: pyridoxine 50mg tablet CORPAK SCH (08:53)
[2019-02-27] MEDS: lisinopril 5mg tablet PO SCH ×2 (08:55→20:23)
[2019-02-27] MEDS: pantoprazole 40mg Tablet.DR PO SCH ×2 (08:55→17:23)
[2019-02-27] MEDS: valproate sod 250mg/5ml UD oral syrup CORPAK SCH (08:55)
[2019-02-27 11:51] LABS: ABG BASE EXCESS 14.2 mmol/L (-2.0-3.0); ABG HCO3 41.1 mmol/L (22.0-26.0); ABG OXYGEN SATURATION 94.2 % (95-98); ABG PCO2 (T) 65.8 mmHg (32.0-45.0); ABG PH (T) 7.413 (7.350-7.450); ABG PO2 (T) 71.2 mmHg (83-108); FCOHb 0.7 % (0.5-1.5); FLOW 2 L/min; FMetHb 0.2 % (0.3-1.12); FO2Hb 93.4 % (94-100); TOTAL HEMOGLOBIN 10.2 G/dl (12.0-16.0)
[2019-02-27 15:15] VITALS: BP 111/54
--- NOTE | 2019-02-27 18:15 | NUR ---
Received report from Jazz STAPLES pt is awake on 1.5L of O2 via NC watching tv in no apparent distress
[2019-02-27 19:00] VITALS: BP 112/58
[2019-02-27] MEDS: valproate sod 250mg/5ml UD oral syrup PO SCH (20:21)
[2019-02-27] MEDS: docusate sodium 100mg/10ml UD cup PO SCH (20:23)
[2019-02-27] MEDS: fluvoxamine 25 MG tablet PO SCH (20:23)
[2019-02-27] MEDS: lactobacillus rhamnosus 10,000 MMU CELLS/CAPSULE PO SCH (20:24)
[2019-02-27] MEDS: quetiapine 100mg tablet PO SCH (20:24)
[2019-02-27] MEDS: hydrOXYzine 25 MG tablet PO SCH (20:24)
[2019-02-27] MEDS: polyethylene glycol 3350 17gm powd pack PO SCH (21:00)
--- NOTE | 2019-02-27 23:46 | NUR ---
pt refusing bi-pap becoming more agitated I will give pt ativan and reassess if she will allow bi-pap
--- NOTE | 2019-02-27 23:46 | NUR ---
@[address] on Bi-pap was met with an adamant refusal and balled up fists. Mara guido may attempt later. Perhaps the ordering physician would be willing to risk physical harm while applying this modality. Wilfredo Ohara NONPROFIT FINANCIAL CONTROLLER Addendum: 02/27/19 at 2349 by Jan Ohara RT Amended: Links added.
[2019-02-27] MEDS: LORazepam 2 mg/ml vial IV PRN (23:49)
[2019-02-28 02:34] VITALS: BP 113/53
[2019-02-28] MEDS: ipratropium/albuterol 3ml nebule NEB SCH ×6 (03:02→22:58)
[2019-02-28 05:36] LABS: BASOPHILS # (AUTO) 0.1 X10'3 (0-0.2); BASOPHILS % (AUTO) 0.5 % (0-1); EOSINOPHILS # (AUTO) 0.1 X10'3 (0-0.9); EOSINOPHILS % (AUTO) 0.8 % (0-6); HEMATOCRIT 27.6 % (35.0-45.0); HEMOGLOBIN 9.4 g/dl (12.0-16.0); LYMPHOCYTES # (AUTO) 2.5 X10'3 (1.1-4.8); LYMPHOCYTES % (AUTO) 22.3 % (21-51); MEAN CORPUSCULAR HEMOGLOBIN 31.8 PG (27.0-31.0); MEAN CORPUSCULAR VOLUME 93.7 FL (78-98); MEAN PLATELET VOLUME 8.3 FL (7.4-10.4); MONOCYTES # (AUTO) 1.3 X10'3 (0-0.9); MONOCYTES % (AUTO) 11.5 % (2-12); NEUTROPHILS # (AUTO) 7.3 X10'3 (1.8-7.7); NEUTROPHILS % (AUTO) 64.9 % (42-75); PLATELET COUNT 445 X10'3 (140-440); RED BLOOD COUNT 2.95 X10'6 (4.20-5.60); RED CELL DISTRIBUTION WIDTH 22.4 % (11.5-14.5); WHITE BLOOD COUNT 11.2 X10'3 (4.5-11.0)
[2019-02-28 05:46] LABS: ALANINE AMINOTRANSFERASE 12 U/L (12-78); ALBUMIN 2.7 G/DL (3.4-5.0); ALBUMIN/GLOBULIN RATIO 0.7 (1.1-1.5); ALKALINE PHOSPHATASE 76 IU/L (46-116); ANION GAP 0 (8-16); ASPARTATE AMINO TRANSFERASE 7 U/L (10-37); BILIRUBIN,TOTAL 0.3 MG/DL (0.1-1.0); BLOOD UREA NITROGEN 20 MG/DL (7-18); BUN/CREATININE RATIO 57.1 (6.6-38.0); CALCIUM 9.2 MG/DL (8.5-10.1); CHLORIDE 103 MMOL/L (99-107); CREATININE 0.35 MG/DL (0.40-0.90); GLUCOSE 81 MG/DL (70-104); MAGNESIUM 1.7 MG/DL (1.5-2.4); PHOSPHORUS 2.5 MG/DL (2.3-4.5); POTASSIUM 4.1 MMOL/L (3.5-5.1); SODIUM 141 MMOL/L (135-145); TOTAL CARBON DIOXIDE 37.9 MMOL/L (24-32); TOTAL PROTEIN 6.6 G/DL (6.4-8.2); eGFR > 90 ML/MIN
[2019-02-28 06:30] VITALS: BP 120/60
--- NOTE | 2019-02-28 06:35 | NUR ---
Problems reprioritized. Patient report given, questions answered & plan of care reviewed with Adela RN.
--- NOTE | 2019-02-28 06:40 | NUR ---
Patient in room PCU 3019. I have received report from JHOAN Coe and had the opportunity to ask questions and assume patient care.
[2019-02-28] MEDS ORDERED: predniSONE 20 mg tablet PO SCH ×2 (08:30)
--- NOTE | 2019-02-28 10:28 | NUR ---
Pt refused 2nd set of VS for this shift. Addendum: 02/28/19 at 1153 by Adela Ohara RN Undo:Care Provider mistake.
[2019-02-28] MEDS: docusate sodium 100mg/10ml UD cup PO SCH ×2 (10:39→20:00)
[2019-02-28] MEDS: pyridoxine 50mg tablet PO SCH (10:39)
[2019-02-28] MEDS: fluvoxamine 25 MG tablet PO SCH ×2 (10:40→20:01)
[2019-02-28] MEDS: pantoprazole 40mg Tablet.DR PO SCH ×2 (10:40→17:42)
[2019-02-28] MEDS: metoprolol tartrate 25mg tablet PO SCH ×3 (10:40→23:13)
[2019-02-28] MEDS: quetiapine 100mg tablet PO SCH ×2 (10:40→20:02)
[2019-02-28] MEDS: lactobacillus rhamnosus 10,000 MMU CELLS/CAPSULE PO SCH ×2 (10:40→20:02)
[2019-02-28] MEDS: ferrous sulfate 325mg tablet PO SCH (10:41)
[2019-02-28] MEDS: lisinopril 5mg tablet PO SCH ×2 (10:41→20:02)
[2019-02-28] MEDS: aripiprazole 5mg tablet PO SCH (10:41)
[2019-02-28] MEDS: valproate sod 250mg/5ml UD oral syrup PO SCH ×2 (10:42→20:01)
[2019-02-28] MEDS: levoTHYROXINE 25mcg tablet PO SCH (10:42)
[2019-02-28] MEDS: nystatin 15 GM powder TP SCH (10:52)
[2019-02-28 11:00] VITALS: BP 113/47
[2019-02-28 15:00] VITALS: BP 116/58
[2019-02-28 18:00] VITALS: BP 126/67
--- NOTE | 2019-02-28 18:05 | NUR ---
Problems reprioritized. Patient report given, questions answered & plan of care reviewed with JHOAN Del Rio.
--- NOTE | 2019-02-28 18:30 | NUR ---
Patient in room PCU 3019. I have received report from Adela STAPLES and had the opportunity to ask questions and assume patient care.
[2019-02-28] MEDS: hydrOXYzine 25 MG tablet PO SCH (20:01)
[2019-02-28] MEDS: polyethylene glycol 3350 17gm powd pack PO SCH (20:30)
[2019-02-28 23:00] VITALS: BP 107/54
[2019-02-28] MEDS: LORazepam 2 mg/ml vial IV PRN (23:19)
[2019-03-01] VITALS (9 sets, daily range): BP systolic 65–115; BP diastolic 35–55
[2019-03-01 02:46] LABS: BASOPHILS % (AUTO) 0.1 % (0-1); EOSINOPHILS % (AUTO) 0.4 % (0-6); HEMATOCRIT 29.7 % (35.0-45.0); HEMOGLOBIN 9.7 g/dl (12.0-16.0); LYMPHOCYTES # (AUTO) 1.3 X10'3 (1.1-4.8); LYMPHOCYTES % (AUTO) 9.8 % (21-51); MEAN CORPUSCULAR HEMOGLOBIN 31.2 PG (27.0-31.0); MEAN CORPUSCULAR HGB CONC 32.5 g/dL (33.0-36.5); MONOCYTES # (AUTO) 0.8 X10'3 (0-0.9); MONOCYTES % (AUTO) 6.1 % (2-12); NEUTROPHILS % (AUTO) 83.6 % (42-75); PLATELET COUNT 436 X10'3 (140-440); RED CELL DISTRIBUTION WIDTH 22.2 % (11.5-14.5); WHITE BLOOD COUNT 13.1 X10'3 (4.5-11.0)
[2019-03-01 03:29] LABS: ALANINE AMINOTRANSFERASE 14 U/L (12-78); ALBUMIN 2.6 G/DL (3.4-5.0); ALBUMIN/GLOBULIN RATIO 0.7 (1.1-1.5); ALKALINE PHOSPHATASE 81 IU/L (46-116); ANION GAP -1 (8-16); ASPARTATE AMINO TRANSFERASE 11 U/L (10-37); BILIRUBIN,TOTAL 0.3 MG/DL (0.1-1.0); BLOOD UREA NITROGEN 17 MG/DL (7-18); BUN/CREATININE RATIO 43.6 (6.6-38.0); CALCIUM 9.1 MG/DL (8.5-10.1); CHLORIDE 103 MMOL/L (99-107); CREATININE 0.39 MG/DL (0.40-0.90); GLUCOSE 115 MG/DL (70-104); MAGNESIUM 1.8 MG/DL (1.5-2.4); PHOSPHORUS 3.3 MG/DL (2.3-4.5); POTASSIUM 4.6 MMOL/L (3.5-5.1); SODIUM 140 MMOL/L (135-145); TOTAL CARBON DIOXIDE 37.6 MMOL/L (24-32); TOTAL PROTEIN 6.6 G/DL (6.4-8.2); eGFR > 90 ML/MIN
[2019-03-01] MEDS: ipratropium/albuterol 3ml nebule NEB SCH ×6 (03:46→22:58)
--- NOTE | 2019-03-01 06:10 | NUR ---
Patient in room PCU 3019. I have received report from JHOAN Del Rio and had the opportunity to ask questions and assume patient care. Pt is sleeping. Sitter in the pt room. Will continue to monitor.
[2019-03-01] MEDS: docusate sodium 100mg/10ml UD cup PO SCH ×2 (08:44→20:40)
[2019-03-01] MEDS: valproate sod 250mg/5ml UD oral syrup PO SCH ×2 (08:44→20:40)
[2019-03-01] MEDS: lisinopril 5mg tablet PO SCH (08:45)
[2019-03-01] MEDS: fluvoxamine 25 MG tablet PO SCH ×2 (08:45→20:36)
[2019-03-01] MEDS: quetiapine 100mg tablet PO SCH ×2 (08:45→20:39)
[2019-03-01] MEDS: methylnaltrexone br 12mg/0.6ml inj***SubQ only SQ SCH (08:45)
[2019-03-01] MEDS: aripiprazole 5mg tablet PO SCH (08:46)
[2019-03-01] MEDS: metoprolol tartrate 25mg tablet PO SCH ×2 (08:46→16:00)
[2019-03-01] MEDS: prednisone 10mg tablet PO SCH (08:46)
[2019-03-01] MEDS: ferrous sulfate 325mg tablet PO SCH (08:46)
[2019-03-01] MEDS: levoTHYROXINE 25mcg tablet PO SCH (08:47)
[2019-03-01] MEDS: pyridoxine 50mg tablet PO SCH (08:47)
[2019-03-01] MEDS: lactobacillus rhamnosus 10,000 MMU CELLS/CAPSULE PO SCH ×2 (08:47→20:39)
[2019-03-01] MEDS: pantoprazole 40mg Tablet.DR PO SCH ×2 (08:50→17:30)
--- NOTE | 2019-03-01 13:25 | NUR ---
Problems reprioritized. Patient report given, questions answered & plan of care reviewed with Brando RN.
--- NOTE | 2019-03-01 14:00 | NUR ---
Patient in room PCU 3019. I have received report from Laura STAPLES and had the opportunity to ask questions and assume patient care.
--- NOTE | 2019-03-01 14:10 | NUR ---
Patient resting in room at this time, sitter a bedside, Patient vitals will be taken per unit protocol. patient alert to voice and able to tell me her name and date of . Patient seems very fatigued at this time, sitter states that is how patient has been during entire shift.
--- NOTE | 2019-03-01 16:00 | NUR ---
Notified dr. patiño of patients blood pressure being low, received a telephone order to give the patient a 1 liter bolus at this time.
[2019-03-01] MEDS ORDERED: normal saline 1000ml 1,000 ML IV SCH (16:05)
[2019-03-01] MEDS ORDERED: normal saline 250ml IV soln 250 ML IV ONE (16:30)
[2019-03-01] MEDS ORDERED: normal saline 1000ml 1,000 ML IVB ONE (16:31)
--- NOTE | 2019-03-01 17:30 | NUR ---
Patient was eating at time of Pantoprazole administration was unable to give 30 minutes prior to meal.
--- NOTE | 2019-03-01 18:29 | NUR ---
Patient in room U 3019. I have received report from Brando Jolly and had the opportunity to ask questions and assume patient care. Addendum: 03/01/19 at 1829 by Isamar Antoine RN Amended: Links added.
--- NOTE | 2019-03-01 18:30 | NUR ---
Problems reprioritized. Patient report given, questions answered & plan of care reviewed with Isamar STAPLES.
--- NOTE | 2019-03-01 20:00 | NUR ---
aspirationprecautions followed pt took meds with apple sauce and thickened cranberry juice and tolerated well. colace and vlaporic acic thickened with apple sauce and pt drank it. tolerated well. no coughing. talked to about swallowing when giving meds orientated to self. not real talkative tonight. skin care done.
[2019-03-01] MEDS: polyethylene glycol 3350 17gm powd pack PO SCH (20:35)
[2019-03-01] MEDS: hydrOXYzine 25 MG tablet PO SCH (20:37)
--- NOTE | 2019-03-01 21:00 | NUR ---
pt repositioned in bed and turned on her right side for comfort after putting her on the bipap machine. pt tolerated well. sitter asisted and pt remains with a sitter for safety.
--- NOTE | 2019-03-01 23:00 | NUR ---
sat 94% at this time. resting without changes. sitter at the bedside and pt remains on bipap.
[2019-03-02] VITALS (7 sets, daily range): BP systolic 85–150; BP diastolic 41–77
--- NOTE | 2019-03-02 01:00 | NUR ---
resting on bipap without changes.
--- NOTE | 2019-03-02 02:00 | NUR ---
pt bp after checking x2 74/35 and 78/41 Brad Handcock notified and labs of calcuim levels and albumin given to him and that pt had 1250 cc fluid earlier and bp remained low and received order for 500cc of 5% albumin.
[2019-03-02] MEDS ORDERED: albumin (Human) 5% 250ml 250 ML IV ONE ×3 (02:25→02:30)
--- NOTE | 2019-03-02 02:30 | NUR ---
Rt stated pt ripped off the bypap and now refusing 02.
--- NOTE | 2019-03-02 02:50 | NUR ---
pt inc of urine skin care done despite resistive to care then after changing her and cleaning her she allowed o2 to be reallpied. had told her why she needed it before applying as she was given a choice of the bipap 02 or eventually the ventalator. resistive to albumin being hung as well and finally allowed it and the nasal canula of o2. noted dry flow was completely saturated with medium dark concentrated urine.
[2019-03-02] MEDS: ipratropium/albuterol 3ml nebule NEB SCH ×6 (03:00→22:57)
--- NOTE | 2019-03-02 03:15 | NUR ---
pt with 2 people standing in room watching her dozed off with eyes closed.
--- NOTE | 2019-03-02 03:57 | NUR ---
second bottle of albumin infusing now.
--- NOTE | 2019-03-02 05:56 | NUR ---
pt remains dry at this time without changes and resting eyes closed without s&s of distress.
[2019-03-02 05:58] LABS: BASOPHILS % (AUTO) 0.1 % (0-1); EOSINOPHILS # (AUTO) 0.2 X10'3 (0-0.9); EOSINOPHILS % (AUTO) 1.7 % (0-6); HEMATOCRIT 25.9 % (35.0-45.0); HEMOGLOBIN 8.6 g/dl (12.0-16.0); LYMPHOCYTES # (AUTO) 1.7 X10'3 (1.1-4.8); LYMPHOCYTES % (AUTO) 15.8 % (21-51); MEAN CORPUSCULAR HEMOGLOBIN 31.8 PG (27.0-31.0); MEAN CORPUSCULAR HGB CONC 33.2 g/dL (33.0-36.5); MEAN CORPUSCULAR VOLUME 95.8 FL (78-98); MEAN PLATELET VOLUME 7.8 FL (7.4-10.4); MONOCYTES # (AUTO) 0.9 X10'3 (0-0.9); MONOCYTES % (AUTO) 8.2 % (2-12); NEUTROPHILS # (AUTO) 8.1 X10'3 (1.8-7.7); NEUTROPHILS % (AUTO) 74.2 % (42-75); PLATELET COUNT 316 X10'3 (140-440); RED CELL DISTRIBUTION WIDTH 22.5 % (11.5-14.5)
[2019-03-02 06:07] LABS: ALANINE AMINOTRANSFERASE 12 U/L (12-78); ALBUMIN 2.9 G/DL (3.4-5.0); ALBUMIN/GLOBULIN RATIO 0.9 (1.1-1.5); ALKALINE PHOSPHATASE 69 IU/L (46-116); ANION GAP 3 (8-16); ASPARTATE AMINO TRANSFERASE 8 U/L (10-37); BILIRUBIN,TOTAL 0.3 MG/DL (0.1-1.0); BLOOD UREA NITROGEN 29 MG/DL (7-18); BUN/CREATININE RATIO 61.7 (6.6-38.0); CALCIUM 8.8 MG/DL (8.5-10.1); CHLORIDE 106 MMOL/L (99-107); CREATININE 0.47 MG/DL (0.40-0.90); GLUCOSE 82 MG/DL (70-104); MAGNESIUM 1.5 MG/DL (1.5-2.4); PHOSPHORUS 2.8 MG/DL (2.3-4.5); POTASSIUM 4.1 MMOL/L (3.5-5.1); SODIUM 143 MMOL/L (135-145); TOTAL CARBON DIOXIDE 34.3 MMOL/L (24-32); TOTAL PROTEIN 6.3 G/DL (6.4-8.2); eGFR > 90 ML/MIN
--- NOTE | 2019-03-02 06:24 | NUR ---
Problems reprioritized. Patient report given, questions answered & plan of care reviewed with Josemanuel Jolly. Addendum: 03/02/19 at 24 by Isamar Antoine RN Amended: Links added.
--- NOTE | 2019-03-02 06:25 | NUR ---
Josemanuel Jolly aware Bop 85/41 obtained. and call to Brad Felix.
--- NOTE | 2019-03-02 06:28 | NUR ---
Brad Thompson stated he will have Dr Moreno come in to look at the pt and aware she has an extended iv in right upper arm.
--- NOTE | 2019-03-02 06:30 | NUR ---
Josemanuel Jolly informed of call. Non orders at this time.
--- NOTE | 2019-03-02 06:41 | NUR ---
Patient in room PCU 3019. I have received report from JHOAN HONG and had the opportunity to ask questions and assume patient care.
[2019-03-02 06:50] LABS: PLATELET ESTIMATE NORMAL
[2019-03-02 06:51] LABS: ANISOCYTOSIS 3+; STOMATOCYTES 1+
[2019-03-02] MEDS: pyridoxine 50mg tablet PO SCH (08:08)
[2019-03-02] MEDS: prednisone 10mg tablet PO SCH (08:08)
[2019-03-02] MEDS: fluvoxamine 25 MG tablet PO SCH ×2 (08:08→21:09)
[2019-03-02] MEDS: aripiprazole 5mg tablet PO SCH (08:08)
[2019-03-02] MEDS: lactobacillus rhamnosus 10,000 MMU CELLS/CAPSULE PO SCH ×2 (08:08→21:08)
[2019-03-02] MEDS: quetiapine 100mg tablet PO SCH ×2 (08:08→21:09)
[2019-03-02] MEDS: metoprolol succinate 25mg (24-HOUR) SR. Tablet PO SCH (08:09)
[2019-03-02] MEDS: levoTHYROXINE 25mcg tablet PO SCH (08:09)
[2019-03-02] MEDS: valproate sod 250mg/5ml UD oral syrup PO SCH ×2 (08:09→21:08)
[2019-03-02] MEDS: ferrous sulfate 325mg tablet PO SCH (08:09)
[2019-03-02] MEDS: pantoprazole 40mg Tablet.DR PO SCH ×2 (08:09→17:29)
[2019-03-02] MEDS: docusate sodium 100mg/10ml UD cup PO SCH ×2 (08:21→20:00)
--- NOTE | 2019-03-02 18:30 | NUR ---
Patient in room PCU 3019. I have received report from NATHAN and had the opportunity to ask questions and assume patient care. PT CALM AND APPROPRIATE AT THIS TIME. RESTING
--- NOTE | 2019-03-02 18:31 | NUR ---
Problems reprioritized. Patient report given, questions answered & plan of care reviewed with JHOAN MCGRATH.
[2019-03-02] MEDS: polyethylene glycol 3350 17gm powd pack PO SCH (21:00)
[2019-03-02] MEDS: hydrOXYzine 25 MG tablet PO SCH (21:08)
[2019-03-03 03:00] VITALS: BP 143/76
[2019-03-03] MEDS: ipratropium/albuterol 3ml nebule NEB SCH ×6 (03:04→23:04)
--- NOTE | 2019-03-03 05:00 | NUR ---
PT ACCIDENTALLY PULLED OUT EXTENDED IV. AFTER 7 IV ATTEMPTS FROM MULTIPLE NURSES, UNABLE TO START IV. WILL ATTEMPT TO CONTACT PICC RN DURING DAY SHIFT.
--- NOTE | 2019-03-03 06:33 | NUR ---
Problems reprioritized. Patient report given, questions answered & plan of care reviewed with LESLI.
[2019-03-03 06:53] VITALS: BP 119/57
[2019-03-03] MEDS: prednisone 10mg tablet PO SCH (07:33)
[2019-03-03] MEDS: levoTHYROXINE 25mcg tablet PO SCH (07:33)
[2019-03-03] MEDS: metoprolol succinate 25mg (24-HOUR) SR. Tablet PO SCH (07:33)
[2019-03-03] MEDS: docusate sodium 100mg/10ml UD cup PO SCH ×2 (07:33→19:50)
[2019-03-03] MEDS: fluvoxamine 25 MG tablet PO SCH ×2 (07:33→19:50)
[2019-03-03] MEDS: ferrous sulfate 325mg tablet PO SCH (07:33)
[2019-03-03] MEDS: aripiprazole 5mg tablet PO SCH (07:33)
[2019-03-03] MEDS: lactobacillus rhamnosus 10,000 MMU CELLS/CAPSULE PO SCH ×2 (07:34→19:50)
[2019-03-03] MEDS: methylnaltrexone br 12mg/0.6ml inj***SubQ only SQ SCH (07:34)
[2019-03-03] MEDS: pyridoxine 50mg tablet PO SCH (07:34)
[2019-03-03] MEDS: quetiapine 100mg tablet PO SCH ×2 (07:34→19:50)
[2019-03-03] MEDS: valproate sod 250mg/5ml UD oral syrup PO SCH ×2 (07:34→21:28)
[2019-03-03] MEDS: pantoprazole 40mg Tablet.DR PO SCH ×2 (07:34→17:19)
[2019-03-03 08:03] LABS: BASOPHILS % (AUTO) 0.4 % (0-1); EOSINOPHILS # (AUTO) 0.4 X10'3 (0-0.9); EOSINOPHILS % (AUTO) 3.7 % (0-6); HEMOGLOBIN 8.9 g/dl (12.0-16.0); LYMPHOCYTES # (AUTO) 1.9 X10'3 (1.1-4.8); MEAN CORPUSCULAR HGB CONC 33.1 g/dL (33.0-36.5); MEAN CORPUSCULAR VOLUME 96.7 FL (78-98); MEAN PLATELET VOLUME 8.1 FL (7.4-10.4); MONOCYTES # (AUTO) 0.9 X10'3 (0-0.9); MONOCYTES % (AUTO) 8.7 % (2-12); NEUTROPHILS # (AUTO) 6.7 X10'3 (1.8-7.7); NEUTROPHILS % (AUTO) 68.2 % (42-75); PLATELET COUNT 290 X10'3 (140-440); RED BLOOD COUNT 2.79 X10'6 (4.20-5.60); RED CELL DISTRIBUTION WIDTH 21.6 % (11.5-14.5); WHITE BLOOD COUNT 9.8 X10'3 (4.5-11.0)
[2019-03-03 08:26] LABS: ALANINE AMINOTRANSFERASE 14 U/L (12-78); ALBUMIN 2.9 G/DL (3.4-5.0); ALBUMIN/GLOBULIN RATIO 0.8 (1.1-1.5); ALKALINE PHOSPHATASE 83 IU/L (46-116); ANION GAP -2 (8-16); ASPARTATE AMINO TRANSFERASE 11 U/L (10-37); BILIRUBIN,TOTAL 0.3 MG/DL (0.1-1.0); BLOOD UREA NITROGEN 14 MG/DL (7-18); BUN/CREATININE RATIO 38.9 (6.6-38.0); CALCIUM 9.1 MG/DL (8.5-10.1); CHLORIDE 105 MMOL/L (99-107); CREATININE 0.36 MG/DL (0.40-0.90); GLUCOSE 96 MG/DL (70-104); MAGNESIUM 1.6 MG/DL (1.5-2.4); PHOSPHORUS 2.1 MG/DL (2.3-4.5); POTASSIUM 4.5 MMOL/L (3.5-5.1); SODIUM 143 MMOL/L (135-145); TOTAL CARBON DIOXIDE 39.9 MMOL/L (24-32); TOTAL PROTEIN 6.6 G/DL (6.4-8.2); eGFR > 90 ML/MIN
[2019-03-03 08:43] LABS: ANISOCYTOSIS 3+; PLATELET ESTIMATE NORMAL
[2019-03-03 08:44] LABS: STOMATOCYTES 2+
--- NOTE | 2019-03-03 10:22 | NUR ---
Reassessment: Patient's weight continues to fluctuate, currently -3 kg from admit. Pt no longer with documented edema. Wt fluctuations likely fluid related. Pt continues meeting nutrient needs with documented 100% PO intake on pureed NTL diet. Lincoln now ABRAHAM and Toño PIEDRA. LBM 03/01. Will continue to follow. Recommend: 1. Continue pureed food and nectar thick liquid per CHEMICAL WEIGHER recs 2. Double protein TID 3. Routine bowel care 4. weekly wts Addendum: 03/03/19 at [address] Amended: Links added.
[2019-03-03 11:00] VITALS: BP 120/61
[2019-03-03] MEDS: Neutra Phos packet PO PRN (15:04)
[2019-03-03 15:40] VITALS: BP 122/67
[2019-03-03 18:00] VITALS: BP 120/66
--- NOTE | 2019-03-03 18:32 | NUR ---
Problems reprioritized. Patient report given, questions answered & plan of care reviewed with JHOAN SIMENTAL.
--- NOTE | 2019-03-03 18:43 | NUR ---
Patient in room PCU 3011. I have received report from JHOAN Navarro and had the opportunity to ask questions and assume patient care.
[2019-03-03] MEDS: polyethylene glycol 3350 17gm powd pack PO SCH (21:28)
[2019-03-03] MEDS: hydrOXYzine 25 MG tablet PO SCH (21:28)
[2019-03-03] MEDS ORDERED: metoprolol tartrate 12.5mg (1/2 tablet) PO ONE (21:30)
[2019-03-03] MEDS ORDERED: haloperidol lactate 5mg/ml inj IM ONE (22:55)
[2019-03-03 23:00] VITALS: BP 125/68
--- NOTE | 2019-03-03 23:26 | NUR ---
Sitter in room states pt became combative during change. Began hitting and kicking. Placed green blanket on patient and called MD for orders.
[2019-03-04] MEDS ORDERED: LORazepam 2 mg/ml vial IM ONE (01:05)
--- NOTE | 2019-03-04 01:06 | NUR ---
Pt continues to be aggressive, pulling at equipment, punching at sitter. notified. New orders obtained for ativan IM.
[2019-03-04 02:00] VITALS: BP 120/69
[2019-03-04] MEDS: ipratropium/albuterol 3ml nebule NEB SCH ×2 (03:01→07:58)
[2019-03-04 05:56] LABS: BASOPHILS # (AUTO) 0.1 X10'3 (0-0.2); BASOPHILS % (AUTO) 0.5 % (0-1); EOSINOPHILS # (AUTO) 0.2 X10'3 (0-0.9); EOSINOPHILS % (AUTO) 1.5 % (0-6); HEMATOCRIT 28.5 % (35.0-45.0); HEMOGLOBIN 9.3 g/dl (12.0-16.0); LYMPHOCYTES # (AUTO) 1.6 X10'3 (1.1-4.8); LYMPHOCYTES % (AUTO) 10.5 % (21-51); MEAN CORPUSCULAR HEMOGLOBIN 31.6 PG (27.0-31.0); MEAN CORPUSCULAR HGB CONC 32.7 g/dL (33.0-36.5); MEAN CORPUSCULAR VOLUME 96.4 FL (78-98); MEAN PLATELET VOLUME 8.2 FL (7.4-10.4); MONOCYTES # (AUTO) 0.8 X10'3 (0-0.9); MONOCYTES % (AUTO) 5.3 % (2-12); NEUTROPHILS # (AUTO) 12.7 X10'3 (1.8-7.7); NEUTROPHILS % (AUTO) 82.2 % (42-75); PLATELET COUNT 319 X10'3 (140-440); RED BLOOD COUNT 2.95 X10'6 (4.20-5.60); RED CELL DISTRIBUTION WIDTH 21.8 % (11.5-14.5); WHITE BLOOD COUNT 15.5 X10'3 (4.5-11.0)
--- NOTE | 2019-03-04 06:11 | NUR ---
Problems reprioritized. Patient report given, questions answered & plan of care reviewed with JHAON Barrios.
[2019-03-04 06:27] LABS: ALANINE AMINOTRANSFERASE 16 U/L (12-78); ALBUMIN/GLOBULIN RATIO 0.7 (1.1-1.5); ALKALINE PHOSPHATASE 91 IU/L (46-116); ANION GAP 6 (8-16); ASPARTATE AMINO TRANSFERASE 12 U/L (10-37); BILIRUBIN,TOTAL 0.5 MG/DL (0.1-1.0); BLOOD UREA NITROGEN 15 MG/DL (7-18); BUN/CREATININE RATIO 34.1 (6.6-38.0); CALCIUM 8.7 MG/DL (8.5-10.1); CHLORIDE 100 MMOL/L (99-107); CREATININE 0.44 MG/DL (0.40-0.90); GLUCOSE 107 MG/DL (70-104); MAGNESIUM 1.4 MG/DL (1.5-2.4); PHOSPHORUS 2.5 MG/DL (2.3-4.5); POTASSIUM 3.9 MMOL/L (3.5-5.1); SODIUM 141 MMOL/L (135-145); TOTAL CARBON DIOXIDE 35.1 MMOL/L (24-32); TOTAL PROTEIN 7.1 G/DL (6.4-8.2); eGFR > 90 ML/MIN
--- NOTE | 2019-03-04 06:40 | NUR ---
Patient in room PCU 3019. I have received report from Kimberly STAPLES and had the opportunity to ask questions and assume patient care.
[2019-03-04 07:00] VITALS: BP 110/73
[2019-03-04 07:23] LABS: ANISOCYTOSIS 3+; PLATELET ESTIMATE NORMAL
[2019-03-04] MEDS: aripiprazole 5mg tablet PO SCH (08:29)
[2019-03-04] MEDS: pantoprazole 40mg Tablet.DR PO SCH ×2 (08:29→18:08)
[2019-03-04] MEDS: quetiapine 100mg tablet PO SCH ×2 (08:29→21:46)
[2019-03-04] MEDS: ferrous sulfate 325mg tablet PO SCH (08:29)
[2019-03-04] MEDS: levoTHYROXINE 25mcg tablet PO SCH (08:29)
[2019-03-04] MEDS: prednisone 10mg tablet PO SCH (08:29)
[2019-03-04] MEDS: fluvoxamine 25 MG tablet PO SCH ×2 (08:29→21:54)
[2019-03-04] MEDS: lactobacillus rhamnosus 10,000 MMU CELLS/CAPSULE PO SCH ×2 (08:29→21:45)
[2019-03-04] MEDS: pyridoxine 50mg tablet PO SCH (08:29)
[2019-03-04] MEDS: docusate sodium 100mg/10ml UD cup PO SCH ×2 (08:30→22:11)
[2019-03-04] MEDS: valproate sod 250mg/5ml UD oral syrup PO SCH ×2 (08:30→21:49)
[2019-03-04] MEDS: metoprolol succinate 25mg (24-HOUR) SR. Tablet PO SCH (08:30)
[2019-03-04] MEDS: levalbuterol 0.63mg/3ml nebule IH SCH ×3 (09:00→20:13)
[2019-03-04] MEDS: ipratropium 0.5 MG/2.5ML nebule IH SCH ×3 (09:00→20:13)
[2019-03-04 11:00] VITALS: BP 157/84
--- NOTE | 2019-03-04 11:31 | NUR ---
PAGER ID: [phone] MESSAGE: [phone] [address] [place] pt's heart rate trending 120's, thank you Sophie #[phone]
--- NOTE | 2019-03-04 14:17 | NUR ---
PAGER ID: [phone] MESSAGE: [phone] [address] [place] Pt has temp of 99.1, heart rate of 125-130, pt complaining of burning while urinating, and urine has a strong odor. Thank you, Sophie #[phone]
[2019-03-04 15:00] VITALS: BP 99/56
[2019-03-04 15:36] LABS: BASOPHILS % (AUTO) 0.2 % (0-1); EOSINOPHILS % (AUTO) 0 % (0-6); HEMATOCRIT 27.6 % (35.0-45.0); LYMPHOCYTES # (AUTO) 1.1 X10'3 (1.1-4.8); LYMPHOCYTES % (AUTO) 3.8 % (21-51); MEAN CORPUSCULAR HEMOGLOBIN 31.2 PG (27.0-31.0); MEAN CORPUSCULAR HGB CONC 32.4 g/dL (33.0-36.5); MEAN CORPUSCULAR VOLUME 96.2 FL (78-98); MONOCYTES # (AUTO) 0.8 X10'3 (0-0.9); MONOCYTES % (AUTO) 2.7 % (2-12); NEUTROPHILS # (AUTO) 26.7 X10'3 (1.8-7.7); NEUTROPHILS % (AUTO) 93.3 % (42-75); PLATELET COUNT 300 X10'3 (140-440); RED BLOOD COUNT 2.87 X10'6 (4.20-5.60); RED CELL DISTRIBUTION WIDTH 22.5 % (11.5-14.5)
[2019-03-04 15:39] LABS: WHITE BLOOD COUNT 28.6 X10'3 (4.5-11.0)
--- NOTE | 2019-03-04 15:52 | NUR ---
PAGER ID: [phone] MESSAGE: [phone] [address] [place] high white blood cell count of 28.6. Thank you, Sophie #[phone] Addendum: 03/04/19 at 1557 by Sophie Carballo RN Dr. Clemons called back. Per Dr. Clemons, waiting from Dr. Ren to review pt's chart. Will continue to monitor.
[2019-03-04 16:22] LABS: TOTAL CELLS COUNTED 100
[2019-03-04 16:23] LABS: ANISOCYTOSIS 3+; HYPOCHROMASIA 1+; PLATELET ESTIMATE NORMAL
[2019-03-04 16:24] LABS: SCHISTOCYTES FEW; STOMATOCYTES 1+
[2019-03-04 18:01] LABS: CLARITY,URINE CLOUDY (Clear); COLOR,URINE YELLOW (Yellow); GLUCOSE, URINE NEGATIVE (Neg); KETONES,URINE TRACE mg/dl (Neg); LEUKOCYTE ESTERASE ,URINE NEGATIVE (Neg); NITRITES, URINE POSITIVE (Neg); OCCULT BLOOD,URINE NEGATIVE (Neg); PH,URINE 6.5 (4.8-8.0); PROTEIN,URINE NEGATIVE (Neg)
[2019-03-04] MEDS: magnesium Cl slow-release 64mg tablet PO PRN ×2 (18:08→21:57)
[2019-03-04 18:09] LABS: UA COLLECTION TYPE STRAIGHT CATH
--- NOTE | 2019-03-04 18:16 | NUR ---
Patient in room PCU 3019. I have received report from and had the opportunity to ask questions and assume patient care.
--- NOTE | 2019-03-04 18:17 | NUR ---
Patient in room PCU 3019. I have received report from Sophie and had the opportunity to ask questions and assume patient care.
[2019-03-04 18:19] LABS: BACTERIA,URINE 4+ /HPF (Neg); RBC,URINE 0-2 /HPF (0-2); SQUAMOUS EPITHELIAL CELL,UR FEW /LPF (FEW); TRANSITIONAL EPI CELLS,URINE FEW /HPF; WBC,URINE 0-4 /HPF (0-4)
[2019-03-04 18:20] LABS: MUCUS STRANDS FEW /LPF (Neg)
--- NOTE | 2019-03-04 18:27 | NUR ---
Problems reprioritized. Patient report given, questions answered & plan of care reviewed with Maddy STAPLES.
[2019-03-04 19:00] VITALS: BP 109/60
[2019-03-04] MEDS: polyethylene glycol 3350 17gm powd pack PO SCH (21:00)
[2019-03-04] MEDS: hydrOXYzine 25 MG tablet PO SCH (21:46)
[2019-03-04] MEDS: normal saline 1000ml 1,000 ML IV SCH (21:46)
[2019-03-04 23:00] VITALS: BP 122/67
[2019-03-05] VITALS (10 sets, daily range): BP systolic 97–122; BP diastolic 45–59
[2019-03-05] MEDS: normal saline 1000ml 1,000 ML IV SCH ×3 (02:59→12:14)
[2019-03-05] MEDS: levalbuterol 0.63mg/3ml nebule IH SCH ×4 (03:10→20:53)
[2019-03-05] MEDS: ipratropium 0.5 MG/2.5ML nebule IH SCH ×4 (03:10→20:53)
[2019-03-05 06:02] LABS: ALANINE AMINOTRANSFERASE 12 U/L (12-78); ALBUMIN 2.4 G/DL (3.4-5.0); ALBUMIN/GLOBULIN RATIO 0.7 (1.1-1.5); ALKALINE PHOSPHATASE 71 IU/L (46-116); ANION GAP 3 (8-16); ASPARTATE AMINO TRANSFERASE 8 U/L (10-37); BILIRUBIN,TOTAL 0.4 MG/DL (0.1-1.0); CALCIUM 8.1 MG/DL (8.5-10.1); CHLORIDE 106 MMOL/L (99-107); CREATININE 0.47 MG/DL (0.40-0.90); GLUCOSE 106 MG/DL (70-104); MAGNESIUM 1.2 MG/DL (1.5-2.4); PHOSPHORUS 2.6 MG/DL (2.3-4.5); POTASSIUM 3.7 MMOL/L (3.5-5.1); SODIUM 143 MMOL/L (135-145); TOTAL CARBON DIOXIDE 34.1 MMOL/L (24-32); eGFR > 90 ML/MIN
--- NOTE | 2019-03-05 06:23 | NUR ---
Problems reprioritized. Patient report given, questions answered & plan of care reviewed with Sophie.
[2019-03-05 06:29] LABS: BASOPHILS # (AUTO) 0.1 X10'3 (0-0.2); BASOPHILS % (AUTO) 0.4 % (0-1); EOSINOPHILS # (AUTO) 0.2 X10'3 (0-0.9); LYMPHOCYTES # (AUTO) 1.3 X10'3 (1.1-4.8); LYMPHOCYTES % (AUTO) 6.9 % (21-51); MEAN CORPUSCULAR VOLUME 96.9 FL (78-98); MEAN PLATELET VOLUME 7.8 FL (7.4-10.4); MONOCYTES # (AUTO) 0.8 X10'3 (0-0.9); MONOCYTES % (AUTO) 4.4 % (2-12); NEUTROPHILS % (AUTO) 87.3 % (42-75); PLATELET COUNT 224 X10'3 (140-440); RED BLOOD COUNT 2.08 X10'6 (4.20-5.60); RED CELL DISTRIBUTION WIDTH 22.4 % (11.5-14.5); WHITE BLOOD COUNT 18.4 X10'3 (4.5-11.0)
--- NOTE | 2019-03-05 06:31 | NUR ---
Patient in room PCU 3019. I have received report from Maddy STAPLES and had the opportunity to ask questions and assume patient care. Pt resting in no apparent distress, NS running at 200 mL/hr with sitter at bedside, will continue to monitor.
[2019-03-05 06:36] LABS: HEMATOCRIT 20.1 % (35.0-45.0); HEMOGLOBIN 6.4 g/dl (12.0-16.0)
--- NOTE | 2019-03-05 06:37 | NUR ---
Called Dr. Pearson in regards to critical Hgb of 6.4 and critical Hct of 20.1. Expressed to Dr. Pearson that this is a significant drop from yesterday's Hgb of 9.0 and Hct 27.6. Per Dr. Pearson, the day time hospitalist must consent the pt. Pt is not actively bleeding at this time, blood pressure is 100/54, will contact day time hospitalist at 0700. Will continue to monitor.
[2019-03-05 06:45] LABS: BLOOD UREA NITROGEN 41 MG/DL (7-18); BUN/CREATININE RATIO 87.2 (6.6-38.0)
--- NOTE | 2019-03-05 07:12 | NUR ---
PAGER ID: [phone] MESSAGE: [phone] [address] [place] Critical hgb 6.4 and hct of 20.1 (from 9.0 and 27.6), please call Sophie #[phone]
[2019-03-05] MEDS: metoprolol succinate 25mg (24-HOUR) SR. Tablet PO SCH (08:00)
[2019-03-05] MEDS: docusate sodium 100mg/10ml UD cup PO SCH ×2 (08:00→19:36)
[2019-03-05] MEDS: methylnaltrexone br 12mg/0.6ml inj***SubQ only SQ SCH (08:00)
[2019-03-05] MEDS: pantoprazole 40mg Tablet.DR PO SCH ×2 (08:19→17:53)
[2019-03-05] MEDS: fluvoxamine 25 MG tablet PO SCH ×2 (08:19→19:36)
[2019-03-05] MEDS: valproate sod 250mg/5ml UD oral syrup PO SCH ×2 (08:19→19:37)
[2019-03-05] MEDS: aripiprazole 5mg tablet PO SCH (08:19)
[2019-03-05] MEDS: levoTHYROXINE 25mcg tablet PO SCH (08:19)
[2019-03-05] MEDS: quetiapine 100mg tablet PO SCH ×2 (08:19→19:36)
[2019-03-05] MEDS: pyridoxine 50mg tablet PO SCH (08:20)
[2019-03-05] MEDS: ferrous sulfate 325mg tablet PO SCH (08:20)
[2019-03-05] MEDS: prednisone 10mg tablet PO SCH (08:20)
[2019-03-05] MEDS: lactobacillus rhamnosus 10,000 MMU CELLS/CAPSULE PO SCH ×2 (08:20→19:35)
[2019-03-05 09:22] LABS: TOTAL CELLS COUNTED 100
[2019-03-05 09:23] LABS: ANISOCYTOSIS 3+; HYPOCHROMASIA 1+; PLATELET ESTIMATE NORMAL
[2019-03-05 09:25] LABS: STOMATOCYTES FEW
[2019-03-05] MEDS: magnesium Cl slow-release 64mg tablet PO PRN (10:34)
[2019-03-05] MEDS ORDERED: iohexol 300mg/ml 100ml inj. ONE (15:09)
--- NOTE | 2019-03-05 18:40 | NUR ---
Problems reprioritized. Patient report given, questions answered & plan of care reviewed with Amanda STAPLES.
--- NOTE | 2019-03-05 18:49 | NUR ---
Patient in room PCU 3019. I have received report from PHU STAPLES and had the opportunity to ask questions and assume patient care.
[2019-03-05] MEDS: hydrOXYzine 25 MG tablet PO SCH (19:36)
[2019-03-05] MEDS: polyethylene glycol 3350 17gm powd pack PO SCH (21:00)
[2019-03-05] MEDS: diatr meglu/diatrizoate 30ml oral sol.-(3 dose) bottle PO SCH (21:00)
[2019-03-05 23:00] LABS: OCCULT BLOOD STOOL POSITIVE (Neg)
[2019-03-06] VITALS (10 sets, daily range): BP systolic 92–115; BP diastolic 51–66
[2019-03-06] MEDS: normal saline 1000ml 1,000 ML IV SCH ×2 (01:00→04:14)
[2019-03-06] MEDS: levalbuterol 0.63mg/3ml nebule IH SCH ×4 (02:49→20:56)
[2019-03-06] MEDS: ipratropium 0.5 MG/2.5ML nebule IH SCH ×4 (02:49→20:56)
[2019-03-06 06:13] LABS: BASOPHILS # (AUTO) 0.1 X10'3 (0-0.2); BASOPHILS % (AUTO) 0.6 % (0-1); EOSINOPHILS # (AUTO) 0.3 X10'3 (0-0.9); EOSINOPHILS % (AUTO) 2.7 % (0-6); HEMATOCRIT 22.2 % (35.0-45.0); HEMOGLOBIN 7.3 g/dl (12.0-16.0); LYMPHOCYTES # (AUTO) 1.6 X10'3 (1.1-4.8); MEAN CORPUSCULAR HEMOGLOBIN 30.7 PG (27.0-31.0); MEAN CORPUSCULAR VOLUME 92.9 FL (78-98); MEAN PLATELET VOLUME 8.4 FL (7.4-10.4); MONOCYTES # (AUTO) 0.5 X10'3 (0-0.9); MONOCYTES % (AUTO) 4.2 % (2-12); NEUTROPHILS # (AUTO) 9.1 X10'3 (1.8-7.7); NEUTROPHILS % (AUTO) 78.5 % (42-75); PLATELET COUNT 162 X10'3 (140-440); RED BLOOD COUNT 2.39 X10'6 (4.20-5.60); RED CELL DISTRIBUTION WIDTH 21.6 % (11.5-14.5); WHITE BLOOD COUNT 11.6 X10'3 (4.5-11.0)
--- NOTE | 2019-03-06 06:34 | NUR ---
Problems reprioritized. Patient report given, questions answered & plan of care reviewed with BRENNAN STAPLES.
--- NOTE | 2019-03-06 06:37 | NUR ---
Patient in room PCU 3019. I have received report from Amanda STAPLES and had the opportunity to ask questions and assume patient care.
[2019-03-06 06:40] LABS: ALANINE AMINOTRANSFERASE 10 U/L (12-78); ALBUMIN 2.3 G/DL (3.4-5.0); ALBUMIN/GLOBULIN RATIO 0.6 (1.1-1.5); ALKALINE PHOSPHATASE 64 IU/L (46-116); ASPARTATE AMINO TRANSFERASE 7 U/L (10-37); BILIRUBIN,TOTAL 0.4 MG/DL (0.1-1.0); BLOOD UREA NITROGEN 20 MG/DL (7-18); BUN/CREATININE RATIO 62.5 (6.6-38.0); CALCIUM 8.3 MG/DL (8.5-10.1); CREATININE 0.32 MG/DL (0.40-0.90); GLUCOSE 89 MG/DL (70-104); MAGNESIUM 1.6 MG/DL (1.5-2.4); PHOSPHORUS 2.1 MG/DL (2.3-4.5); POTASSIUM 3.4 MMOL/L (3.5-5.1); SODIUM 147 MMOL/L (135-145); TOTAL CARBON DIOXIDE 32.9 MMOL/L (24-32); TOTAL PROTEIN 5.9 G/DL (6.4-8.2); eGFR > 90 ML/MIN
[2019-03-06 06:51] LABS: ANION GAP 3 (8-16); CHLORIDE 111 MMOL/L (99-107)
[2019-03-06] MEDS: diatr meglu/diatrizoate 30ml oral sol.-(3 dose) bottle PO SCH ×2 (07:00→21:33)
--- NOTE | 2019-03-06 07:46 | NUR ---
patient refused morning vitals
[2019-03-06] MEDS: valproate sod 250mg/5ml UD oral syrup PO SCH ×2 (08:39→21:25)
[2019-03-06] MEDS: docusate sodium 100mg/10ml UD cup PO SCH ×2 (08:39→21:25)
[2019-03-06] MEDS: levoTHYROXINE 25mcg tablet PO SCH (08:39)
[2019-03-06] MEDS: ferrous sulfate 325mg tablet PO SCH (08:39)
[2019-03-06] MEDS: lactobacillus rhamnosus 10,000 MMU CELLS/CAPSULE PO SCH ×2 (08:39→21:28)
[2019-03-06] MEDS: pyridoxine 50mg tablet PO SCH (08:39)
[2019-03-06] MEDS: quetiapine 100mg tablet PO SCH ×2 (08:40→21:28)
[2019-03-06] MEDS: fluvoxamine 25 MG tablet PO SCH ×2 (08:40→21:27)
[2019-03-06] MEDS: pantoprazole 40mg Tablet.DR PO SCH ×2 (08:40→17:25)
[2019-03-06] MEDS: metoprolol succinate 25mg (24-HOUR) SR. Tablet PO SCH (08:40)
[2019-03-06] MEDS: Neutra Phos packet PO PRN ×2 (08:41→21:26)
[2019-03-06] MEDS: aripiprazole 5mg tablet PO SCH (08:41)
[2019-03-06] MEDS: potassium CL 10mEq/100ml bag 100 ML IV PRN ×4 (08:42→13:38)
[2019-03-06] MEDS: sodium chloride 0.45% 1,000 ML IV SCH ×2 (08:43→16:55)
--- NOTE | 2019-03-06 13:07 | NUR ---
Pt had to have a BM and got up from the bed. Sitter helped pt to BR. Loose stool from bed to toilet. IV pulled out. Blood and feces on floor and pt. Pt placed in shower and washed. House keeping cleaned room. Linen change and new IV start right wrist.
--- NOTE | 2019-03-06 15:53 | NUR ---
Pt down to GI for diagnostic endoscopy via WC
--- NOTE | 2019-03-06 15:56 | NUR ---
Conservator office called and conservator Mary Ann states pt can sign for self as long as she is alert and understands the procedure to be done.
[2019-03-06] MEDS ORDERED: MIDAZolam 5mg/5ml vial ONE (16:00)
[2019-03-06] MEDS ORDERED: fentaNYL/PF 50MCG/1 ML 2ML syringe ONE (16:00)
[2019-03-06] MEDS ORDERED: LIDOcaine Viscous 15ml cup ONE (16:00)
[2019-03-06] MEDS ORDERED: PEG 3350/Na sulf,bicarb,Cl/KCl oral sol 4 liter bottle PO ONE (16:30)
--- NOTE | 2019-03-06 18:21 | NUR ---
Problems reprioritized. Patient report given, questions answered & plan of care reviewed with Nati STAPLES.
--- NOTE | 2019-03-06 18:28 | NUR ---
Patient in room PCU 3019. I have received report from JHOAN Chua and had the opportunity to ask questions and assume patient care.
[2019-03-06] MEDS: polyethylene glycol 3350 17gm powd pack PO SCH (21:25)
[2019-03-06] MEDS: bisacodyl 5mg tablet.DR PO SCH (21:26)
[2019-03-06] MEDS: hydrOXYzine 25 MG tablet PO SCH (21:30)
[2019-03-07] VITALS (10 sets, daily range): BP systolic 86–127; BP diastolic 42–85
[2019-03-07] MEDS: ipratropium 0.5 MG/2.5ML nebule IH SCH ×3 (02:44→20:13)
[2019-03-07] MEDS: levalbuterol 0.63mg/3ml nebule IH SCH ×3 (02:44→20:13)
[2019-03-07 06:11] LABS: ALANINE AMINOTRANSFERASE 15 U/L (12-78); ALBUMIN 2.5 G/DL (3.4-5.0); ALBUMIN/GLOBULIN RATIO 0.7 (1.1-1.5); ALKALINE PHOSPHATASE 72 IU/L (46-116); ANION GAP 4 (8-16); ASPARTATE AMINO TRANSFERASE 10 U/L (10-37); BILIRUBIN,TOTAL 0.3 MG/DL (0.1-1.0); BLOOD UREA NITROGEN 10 MG/DL (7-18); BUN/CREATININE RATIO 32.3 (6.6-38.0); CALCIUM 8.2 MG/DL (8.5-10.1); CHLORIDE 106 MMOL/L (99-107); CREATININE 0.31 MG/DL (0.40-0.90); GLUCOSE 77 MG/DL (70-104); MAGNESIUM 1.7 MG/DL (1.5-2.4); PHOSPHORUS 2.9 MG/DL (2.3-4.5); POTASSIUM 3.7 MMOL/L (3.5-5.1); SODIUM 143 MMOL/L (135-145); TOTAL CARBON DIOXIDE 32.8 MMOL/L (24-32); TOTAL PROTEIN 6.3 G/DL (6.4-8.2); eGFR > 90 ML/MIN
[2019-03-07 06:15] LABS: BASOPHILS # (AUTO) 0.1 X10'3 (0-0.2); BASOPHILS % (AUTO) 0.7 % (0-1); EOSINOPHILS # (AUTO) 0.4 X10'3 (0-0.9); EOSINOPHILS % (AUTO) 5.7 % (0-6); HEMATOCRIT 23.7 % (35.0-45.0); HEMOGLOBIN 7.9 g/dl (12.0-16.0); LYMPHOCYTES # (AUTO) 1.7 X10'3 (1.1-4.8); LYMPHOCYTES % (AUTO) 23.3 % (21-51); MEAN CORPUSCULAR HGB CONC 33.3 g/dL (33.0-36.5); MEAN PLATELET VOLUME 8.3 FL (7.4-10.4); MONOCYTES # (AUTO) 0.5 X10'3 (0-0.9); MONOCYTES % (AUTO) 6.5 % (2-12); NEUTROPHILS # (AUTO) 4.7 X10'3 (1.8-7.7); NEUTROPHILS % (AUTO) 63.8 % (42-75); PLATELET COUNT 138 X10'3 (140-440); RED BLOOD COUNT 2.47 X10'6 (4.20-5.60); RED CELL DISTRIBUTION WIDTH 21.5 % (11.5-14.5); WHITE BLOOD COUNT 7.3 X10'3 (4.5-11.0)
--- NOTE | 2019-03-07 06:31 | NUR ---
Problems reprioritized. Patient report given, questions answered & plan of care reviewed with JHOAN Johns.
[2019-03-07] MEDS: sodium chloride 0.45% 1,000 ML IV SCH ×2 (06:43→18:11)
[2019-03-07] MEDS: docusate sodium 100mg/10ml UD cup PO SCH ×2 (07:44→20:00)
[2019-03-07] MEDS: bisacodyl 5mg tablet.DR PO SCH (07:45)
[2019-03-07] MEDS: lactobacillus rhamnosus 10,000 MMU CELLS/CAPSULE PO SCH ×2 (08:00→20:37)
[2019-03-07] MEDS: methylnaltrexone br 12mg/0.6ml inj***SubQ only SQ SCH ×2 (08:00→08:01)
[2019-03-07] MEDS: levoTHYROXINE 25mcg tablet PO SCH (08:00)
[2019-03-07] MEDS: fluvoxamine 25 MG tablet PO SCH ×2 (08:00→20:37)
[2019-03-07] MEDS: pantoprazole 40mg Tablet.DR PO SCH ×2 (08:01→18:11)
[2019-03-07] MEDS: ferrous sulfate 325mg tablet PO SCH (08:01)
[2019-03-07] MEDS: pyridoxine 50mg tablet PO SCH (08:01)
[2019-03-07] MEDS: quetiapine 100mg tablet PO SCH ×2 (08:01→20:37)
[2019-03-07] MEDS: aripiprazole 5mg tablet PO SCH (08:01)
[2019-03-07] MEDS: metoprolol succinate 25mg (24-HOUR) SR. Tablet PO SCH (08:01)
[2019-03-07] MEDS: valproate sod 250mg/5ml UD oral syrup PO SCH ×2 (08:02→20:36)
[2019-03-07] MEDS ORDERED: fentaNYL/PF 50MCG/1 ML 2ML syringe ONE (09:27)
[2019-03-07] MEDS ORDERED: MIDAZolam 5mg/5ml vial ONE (09:28)
[2019-03-07] MEDS: polyethylene glycol 3350 17gm powd pack PO SCH (20:35)
[2019-03-07] MEDS: hydrOXYzine 25 MG tablet PO SCH (20:37)
[2019-03-08] MEDS: levalbuterol 0.63mg/3ml nebule IH SCH ×4 (03:01→20:49)
[2019-03-08] MEDS: ipratropium 0.5 MG/2.5ML nebule IH SCH ×4 (03:01→20:49)
[2019-03-08 03:16] VITALS: BP 130/64
[2019-03-08 05:33] LABS: BASOPHILS % (AUTO) 0.5 % (0-1); EOSINOPHILS # (AUTO) 0.2 X10'3 (0-0.9); HEMATOCRIT 22.7 % (35.0-45.0); HEMOGLOBIN 7.5 g/dl (12.0-16.0); LYMPHOCYTES # (AUTO) 1.2 X10'3 (1.1-4.8); LYMPHOCYTES % (AUTO) 24.1 % (21-51); MEAN CORPUSCULAR HEMOGLOBIN 31.6 PG (27.0-31.0); MEAN CORPUSCULAR VOLUME 95.9 FL (78-98); MEAN PLATELET VOLUME 9.3 FL (7.4-10.4); MONOCYTES # (AUTO) 0.4 X10'3 (0-0.9); MONOCYTES % (AUTO) 7.2 % (2-12); NEUTROPHILS # (AUTO) 3.3 X10'3 (1.8-7.7); NEUTROPHILS % (AUTO) 64.2 % (42-75); PLATELET COUNT 108 X10'3 (140-440); RED BLOOD COUNT 2.36 X10'6 (4.20-5.60); RED CELL DISTRIBUTION WIDTH 20.4 % (11.5-14.5); WHITE BLOOD COUNT 5.2 X10'3 (4.5-11.0)
[2019-03-08 05:50] LABS: ALANINE AMINOTRANSFERASE 12 U/L (12-78); ALBUMIN 2.4 G/DL (3.4-5.0); ALBUMIN/GLOBULIN RATIO 0.7 (1.1-1.5); ALKALINE PHOSPHATASE 77 IU/L (46-116); ANION GAP 2 (8-16); ASPARTATE AMINO TRANSFERASE 13 U/L (10-37); BILIRUBIN,TOTAL 0.3 MG/DL (0.1-1.0); BLOOD UREA NITROGEN 4 MG/DL (7-18); BUN/CREATININE RATIO 13.3 (6.6-38.0); CALCIUM 8.8 MG/DL (8.5-10.1); CHLORIDE 104 MMOL/L (99-107); GLUCOSE 86 MG/DL (70-104); POTASSIUM 3.9 MMOL/L (3.5-5.1); SODIUM 140 MMOL/L (135-145); TOTAL CARBON DIOXIDE 34.5 MMOL/L (24-32); TOTAL PROTEIN 5.9 G/DL (6.4-8.2); eGFR > 90 ML/MIN
[2019-03-08 06:00] VITALS: BP 140/62
--- NOTE | 2019-03-08 06:29 | NUR ---
Problems reprioritized. Patient report given, questions answered & plan of care reviewed with JHOAN Palencia.
--- NOTE | 2019-03-08 06:30 | NUR ---
Patient in room PCU 3019. I have received report from Nati STAPLES and had the opportunity to ask questions and assume patient care.
[2019-03-08 07:11] LABS: PLATELET ESTIMATE DECREASED; POLYCHROMASIA 1+
[2019-03-08 07:12] LABS: ANISOCYTOSIS 3+; STOMATOCYTES FEW
[2019-03-08] MEDS: docusate sodium 100mg/10ml UD cup PO SCH ×2 (08:16→20:00)
[2019-03-08] MEDS: metoprolol succinate 25mg (24-HOUR) SR. Tablet PO SCH (08:17)
[2019-03-08] MEDS: valproate sod 250mg/5ml UD oral syrup PO SCH ×2 (08:17→20:21)
[2019-03-08] MEDS: quetiapine 100mg tablet PO SCH ×2 (08:17→20:23)
[2019-03-08] MEDS: aripiprazole 5mg tablet PO SCH (08:18)
[2019-03-08] MEDS: fluvoxamine 25 MG tablet PO SCH ×2 (08:19→20:22)
[2019-03-08] MEDS: ferrous sulfate 325mg tablet PO SCH ×2 (08:20→20:23)
[2019-03-08] MEDS: pyridoxine 50mg tablet PO SCH (08:20)
[2019-03-08] MEDS: lactobacillus rhamnosus 10,000 MMU CELLS/CAPSULE PO SCH ×2 (08:20→20:23)
[2019-03-08] MEDS: levoTHYROXINE 25mcg tablet PO SCH (08:21)
[2019-03-08] MEDS: pantoprazole 40mg Tablet.DR PO SCH ×2 (08:21→17:12)
[2019-03-08] MEDS: sodium chloride 0.45% 1,000 ML IV SCH ×2 (10:00)
[2019-03-08 10:13] LABS: % IRON SATURATION 19 % (11-46); IRON 33 UG/DL (49-151); TOTAL IRON BINDING CAPACITY 177 UG/DL (259-388)
[2019-03-08 11:00] VITALS: BP 126/64
--- NOTE | 2019-03-08 12:16 | NUR ---
reassessment: Pt had acute GIB episode s/p EGD showing peptic ulcer disease; has hx GERD getting protonix. S/p colonoscopy w/ polyp sent for biopsy per MD note. Pt place on clear liquid (thins) per GI MD; not appropriate given aspiration risks and needs NTL per STUDENT LOAN COUNSELOR recs. RD notified dietary, RN, and changed liquid consistency in computrition to reflect STUDENT LOAN COUNSELOR recs. PO 25-50% declined since clear liquids diet 03/06; 3 days on thin liquids. LBM 03/07 receiving col[address] and Fe. RD ordered routine STUDENT LOAN COUNSELOR BSS for tomorrow. Will monitor for diet advancement. Recommend: 1. advance to pureed/NECTAR THICK liquidS per STUDENT LOAN COUNSELOR recs 2. once diet advanced; Double proteins TID 3. Routine bowel care 4. weekly wts Addendum: 03/08/19 at [address] Amended: Links added.
[2019-03-08 15:00] VITALS: BP 125/72
--- NOTE | 2019-03-08 18:22 | NUR ---
Paged Dr. Clemons PAGER ID: [phone] MESSAGE: Talha STAPLES [phone] [address] [place]: pt ordered Clear liquids. Edi Manager requested us make her [place] Thick. Also, can we advance her diet? Puree diet? Pt had no difficulty swallowing pills or thin liquids for me today. Thank you.
--- NOTE | 2019-03-08 18:37 | NUR ---
Patient in room PCU 3019. I have received report from JHOAN Palencia and had the opportunity to ask questions and assume patient care. Patient asleep for bedside report. 22G in the right forearm placed 03/08 and has 1/2 NS at 100 mL/hr infusing per provider order. Stable at this time. Will continue to monitor closely.
[2019-03-08 19:00] VITALS: BP 153/80
[2019-03-08] MEDS: hydrOXYzine 25 MG tablet PO SCH (20:22)
[2019-03-08] MEDS: polyethylene glycol 3350 17gm powd pack PO SCH (20:24)
[2019-03-08 23:00] VITALS: BP 145/69
[2019-03-09] VITALS (9 sets, daily range): BP systolic 114–153; BP diastolic 54–78
[2019-03-09] MEDS: sodium chloride 0.45% 1,000 ML IV SCH ×2 (00:53→07:47)
--- NOTE | 2019-03-09 02:10 | NUR ---
B/P 85/41 HR 95. Patient responds to light touch and intermittently by name. 250 mL bolus of 1/2 NS administered at 0150 per unit policy. Charge nurse notified. B/P 114/54 HR 87 taken at 0205. Will continue to monitor closely.
[2019-03-09] MEDS: ipratropium 0.5 MG/2.5ML nebule IH SCH ×4 (03:04→21:14)
[2019-03-09 05:16] LABS: ALANINE AMINOTRANSFERASE 9 U/L (12-78); ALBUMIN 2.5 G/DL (3.4-5.0); ALBUMIN/GLOBULIN RATIO 0.6 (1.1-1.5); ALKALINE PHOSPHATASE 77 IU/L (46-116); ANION GAP -3 (8-16); ASPARTATE AMINO TRANSFERASE 9 U/L (10-37); BILIRUBIN,TOTAL 0.3 MG/DL (0.1-1.0); BLOOD UREA NITROGEN 1 MG/DL (7-18); BUN/CREATININE RATIO 2.9 (6.6-38.0); CALCIUM 8.2 MG/DL (8.5-10.1); CHLORIDE 103 MMOL/L (99-107); CREATININE 0.34 MG/DL (0.40-0.90); GLUCOSE 88 MG/DL (70-104); POTASSIUM 3.8 MMOL/L (3.5-5.1); SODIUM 139 MMOL/L (135-145); TOTAL CARBON DIOXIDE 38.5 MMOL/L (24-32); TOTAL PROTEIN 6.4 G/DL (6.4-8.2); eGFR > 90 ML/MIN
[2019-03-09 05:21] LABS: BASOPHILS % (AUTO) 0.3 % (0-1); EOSINOPHILS # (AUTO) 0.2 X10'3 (0-0.9); EOSINOPHILS % (AUTO) 2.8 % (0-6); HEMATOCRIT 25.2 % (35.0-45.0); HEMOGLOBIN 8.4 g/dl (12.0-16.0); LYMPHOCYTES # (AUTO) 1.2 X10'3 (1.1-4.8); LYMPHOCYTES % (AUTO) 17.8 % (21-51); MEAN CORPUSCULAR HEMOGLOBIN 32.7 PG (27.0-31.0); MEAN CORPUSCULAR HGB CONC 33.2 g/dL (33.0-36.5); MEAN CORPUSCULAR VOLUME 98.5 FL (78-98); MEAN PLATELET VOLUME 8.4 FL (7.4-10.4); MONOCYTES # (AUTO) 0.5 X10'3 (0-0.9); MONOCYTES % (AUTO) 7.1 % (2-12); NEUTROPHILS # (AUTO) 4.7 X10'3 (1.8-7.7); PLATELET COUNT 109 X10'3 (140-440); RED BLOOD COUNT 2.56 X10'6 (4.20-5.60); RED CELL DISTRIBUTION WIDTH 20.3 % (11.5-14.5); WHITE BLOOD COUNT 6.5 X10'3 (4.5-11.0)
--- NOTE | 2019-03-09 06:12 | NUR ---
Problems reprioritized. Patient report given, questions answered & plan of care reviewed with JHOAN Barrios and JHOAN Sorto.
--- NOTE | 2019-03-09 06:37 | NUR ---
Patient in room PCU 3019. I have received report from JHOAN Horowitz and had the opportunity to ask questions and assume patient care.
[2019-03-09 07:03] LABS: ANISOCYTOSIS 3+; PLATELET ESTIMATE DECREASED; POLYCHROMASIA FEW
[2019-03-09] MEDS: methylnaltrexone br 12mg/0.6ml inj***SubQ only SQ SCH (07:36)
[2019-03-09] MEDS: pantoprazole 40mg Tablet.DR PO SCH ×2 (07:39→17:04)
[2019-03-09] MEDS: aripiprazole 5mg tablet PO SCH (07:40)
[2019-03-09] MEDS: levoTHYROXINE 25mcg tablet PO SCH (07:41)
[2019-03-09] MEDS: metoprolol succinate 25mg (24-HOUR) SR. Tablet PO SCH (07:41)
[2019-03-09] MEDS: quetiapine 100mg tablet PO SCH ×2 (07:47→20:19)
[2019-03-09] MEDS: ferrous sulfate 325mg tablet PO SCH ×2 (07:47→20:19)
[2019-03-09] MEDS: fluvoxamine 25 MG tablet PO SCH ×2 (07:48→20:19)
[2019-03-09] MEDS: lactobacillus rhamnosus 10,000 MMU CELLS/CAPSULE PO SCH ×2 (07:48→20:20)
[2019-03-09] MEDS: pyridoxine 50mg tablet PO SCH (07:48)
[2019-03-09] MEDS: docusate sodium 100mg/10ml UD cup PO SCH ×2 (08:00→20:20)
--- NOTE | 2019-03-09 08:15 | NUR ---
PAGER ID: [phone] MESSAGE: [id number] pt Tre c/o CP, stat EKG done, are you available to read? - Thank you Sonam [id number] Addendum: 03/09/19 at 0824 by Minnie Merida RN EKG read by Dr Cancino, No stemi noted, new order for mg lab
--- NOTE | 2019-03-09 08:32 | NUR ---
PAGER ID: [phone] MESSAGE: [id number] Karthik [place] Pt requiring more O2, pt was on 2L now on 5 L with SPO2 at 93%, respiratory rate is 26, and BP 162/66. Please call Sophie #[phone]
[2019-03-09 08:44] LABS: MAGNESIUM 1.7 MG/DL (1.5-2.4)
[2019-03-09] MEDS: valproate sod 250mg/5ml UD oral syrup PO SCH ×2 (09:38→20:20)
[2019-03-09] MEDS: levalbuterol 0.63mg/3ml nebule IH SCH ×3 (09:46→21:14)
[2019-03-09] MEDS ORDERED: normal saline 1000ml 1,000 ML IV SCH (10:25)
--- NOTE | 2019-03-09 10:25 | NUR ---
PRESSURE ULCER EDUCATION: DEFINITION: A pressure ulcer is an area of skin that breaks down when you stay in one position too long. The constant pressure against the skin reduces the blood flow to that area and the affected tissue dies. CAUSES: "Being bedridden or in a wheelchair "Fragile skin "Having a chronic condition, such as diabetes or vascular disease "Inability to move certain parts of your body without assistance "Older age "Incontinence of urine or stool SYMPTOMS: "A reddened area that DOES NOT turn white when pressed on - this can be the beginning of a pressure ulcer "A blister, deep sore or a crater - these can be advanced pressure ulcers FIRST AID: "Relieve the pressure on this area "Keep the area clean and dry "Call your primary doctor if you see any of the above symptoms "DO NOT massage the area "DO NOT use a donut shaped or ring shaped pillow- these actually interfere with the blood flow and cause complications PREVENTION: "Check for pressure ulcers everyday "Change position at least every two hours to relieve pressure "Use items that help relieve pressure- pillows, sheepskin, foam padding, and powders. "Keep skin clean and dry "Eat healthy well balanced meals "Exercise daily IF YOU SEE ANY OF THESE SYMPTOMS WHILE IN THE HOSPITAL - TELL YOUR NURSE IMMEDIATELY. IF YOU SEE ANY OF THESE SYMPTOMS WHILE AT HOME OR HAVE ANY QUESTIONS OR CONCERNS ABOUT PRESSURE ULCERS - CALL YOUR PRIMARY DOCTOR IMMEDIATELY. Addendum: 03/09/19 at 1025 by Mallory Cole RN Amended: Links added.
--- NOTE | 2019-03-09 12:50 | NUR ---
PAGER ID: [phone] MESSAGE: [id number] Gogo [place] chest X-Ray has resulted, showing pulmonary edema and vascular congestion. Thank you, Sophie #[phone] Addendum: 03/09/19 at 1257 by Sophie Carballo RN Dr. Morton called back, new order for Lasix 40 mg IV q8h, first dose now.
[2019-03-09] MEDS: furosemide 40mg/4ml inj IV SCH ×3 (13:06→23:43)
--- NOTE | 2019-03-09 16:27 | NUR ---
PAGER ID: [phone] MESSAGE: [phone] Gogo [place] During hygiene care I noticed pt's rectum has prolapsed about 2 inches, was not there before. Thank you, Sophie #[phone]
--- NOTE | 2019-03-09 19:01 | NUR ---
Patient in room PCU 3019. I have received report from JHOAN Barrios and JHOAN Sorto and had the opportunity to ask questions and assume patient care. Day RN stated she observed patient's rectum had prolapsed 2 inches and hospitalist notified. Will address with charge nurse and night time hospitalist about plan of care. Patient awake for bedside report and has 22G in the right forearm that is saline locked. Sitter in room. Will continue to monitor closely.
[2019-03-09] MEDS: hydrOXYzine 25 MG tablet PO SCH (20:19)
[2019-03-09] MEDS: polyethylene glycol 3350 17gm powd pack PO SCH (20:21)
--- NOTE | 2019-03-09 21:00 | NUR ---
Assessed patient's rectum and there was no changed observed from yesterday. Patient most likely has hemorrhoids. Will address with day RN. Charge nurse notified.
[2019-03-09] MEDS: proCHLORperazine 10 MG/2 ml inj IV PRN (23:41)
[2019-03-10] VITALS (7 sets, daily range): BP systolic 92–117; BP diastolic 43–61
[2019-03-10] MEDS: ipratropium 0.5 MG/2.5ML nebule IH SCH ×4 (02:42→20:17)
[2019-03-10] MEDS: levalbuterol 0.63mg/3ml nebule IH SCH ×4 (02:42→20:17)
[2019-03-10 05:41] LABS: BASOPHILS % (AUTO) 0.3 % (0-1); EOSINOPHILS # (AUTO) 0.1 X10'3 (0-0.9); EOSINOPHILS % (AUTO) 1.8 % (0-6); HEMATOCRIT 22.6 % (35.0-45.0); HEMOGLOBIN 7.5 g/dl (12.0-16.0); LYMPHOCYTES # (AUTO) 1.8 X10'3 (1.1-4.8); LYMPHOCYTES % (AUTO) 29.8 % (21-51); MEAN CORPUSCULAR HEMOGLOBIN 32.1 PG (27.0-31.0); MEAN CORPUSCULAR VOLUME 97.3 FL (78-98); MEAN PLATELET VOLUME 8.1 FL (7.4-10.4); MONOCYTES # (AUTO) 0.6 X10'3 (0-0.9); MONOCYTES % (AUTO) 9.3 % (2-12); NEUTROPHILS # (AUTO) 3.7 X10'3 (1.8-7.7); NEUTROPHILS % (AUTO) 58.8 % (42-75); PLATELET COUNT 116 X10'3 (140-440); RED BLOOD COUNT 2.32 X10'6 (4.20-5.60); RED CELL DISTRIBUTION WIDTH 20.6 % (11.5-14.5); WHITE BLOOD COUNT 6.2 X10'3 (4.5-11.0)
[2019-03-10 05:51] LABS: ALANINE AMINOTRANSFERASE 13 U/L (12-78); ALBUMIN 2.5 G/DL (3.4-5.0); ALBUMIN/GLOBULIN RATIO 0.6 (1.1-1.5); ALKALINE PHOSPHATASE 79 IU/L (46-116); ASPARTATE AMINO TRANSFERASE 11 U/L (10-37); BILIRUBIN,TOTAL 0.3 MG/DL (0.1-1.0); BLOOD UREA NITROGEN 2 MG/DL (7-18); BUN/CREATININE RATIO 5.4 (6.6-38.0); CALCIUM 8.7 MG/DL (8.5-10.1); CHLORIDE 100 MMOL/L (99-107); CREATININE 0.37 MG/DL (0.40-0.90); GLUCOSE 100 MG/DL (70-104); MAGNESIUM 1.3 MG/DL (1.5-2.4); PHOSPHORUS 3.1 MG/DL (2.3-4.5); POTASSIUM 3.2 MMOL/L (3.5-5.1); SODIUM 141 MMOL/L (135-145); TOTAL PROTEIN 6.4 G/DL (6.4-8.2); eGFR > 90 ML/MIN
[2019-03-10 06:17] LABS: ANION GAP -7 (8-16)
[2019-03-10 06:21] LABS: TOTAL CARBON DIOXIDE 48.1 MMOL/L (24-32)
[2019-03-10 06:30] LABS: ANISOCYTOSIS 3+; PLATELET ESTIMATE DECREASED
--- NOTE | 2019-03-10 06:32 | NUR ---
Called Dr. Amaya at [phone] in regards to critical CO2 of 48.2. New order for Stat ABG. Pt is in no apparent distress at this time. Will continue to monitor.
--- NOTE | 2019-03-10 06:33 | NUR ---
Problems reprioritized. Patient report given, questions answered & plan of care reviewed with JHOAN Barrios and JHOAN Sorto.
--- NOTE | 2019-03-10 06:47 | NUR ---
Patient in room PCU 3019. I have received report from Lor STAPLES and had the opportunity to ask questions and assume patient care.
[2019-03-10] MEDS: docusate sodium 100mg/10ml UD cup PO SCH ×2 (08:00→21:06)
[2019-03-10] MEDS: ferrous sulfate 325mg tablet PO SCH ×2 (08:57→21:04)
[2019-03-10] MEDS: metoprolol succinate 25mg (24-HOUR) SR. Tablet PO SCH (08:57)
[2019-03-10] MEDS: pantoprazole 40mg Tablet.DR PO SCH ×2 (08:57→17:34)
[2019-03-10] MEDS: pyridoxine 50mg tablet PO SCH (08:57)
[2019-03-10] MEDS: aripiprazole 5mg tablet PO SCH (08:58)
[2019-03-10] MEDS: fluvoxamine 25 MG tablet PO SCH ×2 (08:58→21:05)
[2019-03-10] MEDS: levoTHYROXINE 25mcg tablet PO SCH (08:59)
[2019-03-10] MEDS: quetiapine 100mg tablet PO SCH ×2 (08:59→21:05)
[2019-03-10] MEDS: lactobacillus rhamnosus 10,000 MMU CELLS/CAPSULE PO SCH ×2 (08:59→21:04)
[2019-03-10] MEDS: furosemide 40mg/4ml inj IV SCH ×2 (09:01→21:06)
[2019-03-10] MEDS: valproate sod 250mg/5ml UD oral syrup PO SCH ×2 (09:01→21:05)
[2019-03-10 09:05] LABS: ABG HCO3 52.8 mmol/L (22.0-26.0); ABG OXYGEN SATURATION 97.6 % (95-98); ABG PCO2 (T) 97.3 mmHg (32.0-45.0); ABG PH (T) 7.352 (7.350-7.450); ABG PO2 (T) 106.4 mmHg (83-108); ALLEN'S TEST Positive; FCOHb 1.2 % (0.5-1.5); FLOW 2 L/min; FMetHb 0.2 % (0.3-1.12); FO2Hb 96.2 % (94-100)
--- NOTE | 2019-03-10 09:09 | NUR ---
PAGER ID: [phone] MESSAGE: [id number] Gogo [place] drawn PH 7.35, pCO2 97.3 (critical), and HCO3 52.8.Thank you, Sophie #[phone]
[2019-03-10] MEDS ORDERED: potassium Cl 20 mEq SR tablet PO PRN (10:50)
[2019-03-10] MEDS: magnesium Cl slow-release 64mg tablet PO PRN ×2 (12:10→21:05)
[2019-03-10] MEDS: potassium Cl 20 mEq SR tablet PO PRN ×3 (12:11→21:23)
[2019-03-10 13:41] LABS: ABG BASE EXCESS 19.3 mmol/L (-2.0-3.0); ABG OXYGEN SATURATION 89.4 % (95-98); ABG PCO2 (T) 79.5 mmHg (32.0-45.0); ALLEN'S TEST Positive; FCOHb 1.1 % (0.5-1.5); FMetHb 0.4 % (0.3-1.12); FO2Hb 88.1 % (94-100); MINUTE VOLUME 8 L/min; RESPIRATORY RATE 16 b/min; TOTAL HEMOGLOBIN 8.8 G/dl (12.0-16.0)
--- NOTE | 2019-03-10 13:47 | NUR ---
PAGER ID: [phone] MESSAGE: [id number] Gogo [place] Repeat ABG drawn per protocol, pH 7.39, pCO2 79.5 (down from 97.3), pO2 59, HCO3 47. Continue BiPap? Please AdviseSophie #[phone]
--- NOTE | 2019-03-10 18:18 | NUR ---
Patient in room PCU 3019. I have received report from Sophie and had the opportunity to ask questions and assume patient care.
--- NOTE | 2019-03-10 18:18 | NUR ---
Problems reprioritized. Patient report given, questions answered & plan of care reviewed with Maddy STAPLES.
[2019-03-10] MEDS: polyethylene glycol 3350 17gm powd pack PO SCH (21:00)
[2019-03-10] MEDS: hydrOXYzine 25 MG tablet PO SCH (21:04)
[2019-03-11] MEDS: proCHLORperazine 10 MG/2 ml inj IV PRN (00:27)
[2019-03-11] MEDS: ipratropium 0.5 MG/2.5ML nebule IH SCH ×4 (02:30→19:28)
[2019-03-11] MEDS: levalbuterol 0.63mg/3ml nebule IH SCH ×4 (02:30→19:29)
[2019-03-11 03:00] VITALS: BP 114/66
[2019-03-11 05:33] LABS: BASOPHILS % (AUTO) 0.4 % (0-1); EOSINOPHILS # (AUTO) 0.2 X10'3 (0-0.9); EOSINOPHILS % (AUTO) 3.7 % (0-6); HEMATOCRIT 24.1 % (35.0-45.0); LYMPHOCYTES % (AUTO) 32.6 % (21-51); MEAN CORPUSCULAR HEMOGLOBIN 31.9 PG (27.0-31.0); MEAN CORPUSCULAR VOLUME 96.5 FL (78-98); MEAN PLATELET VOLUME 8.3 FL (7.4-10.4); MONOCYTES # (AUTO) 0.6 X10'3 (0-0.9); MONOCYTES % (AUTO) 9.3 % (2-12); NEUTROPHILS # (AUTO) 3.3 X10'3 (1.8-7.7); PLATELET COUNT 137 X10'3 (140-440); RED CELL DISTRIBUTION WIDTH 20.6 % (11.5-14.5); WHITE BLOOD COUNT 6.1 X10'3 (4.5-11.0)
[2019-03-11 05:41] LABS: ALANINE AMINOTRANSFERASE 10 U/L (12-78); ALBUMIN 2.5 G/DL (3.4-5.0); ALBUMIN/GLOBULIN RATIO 0.7 (1.1-1.5); ALKALINE PHOSPHATASE 76 IU/L (46-116); ASPARTATE AMINO TRANSFERASE 9 U/L (10-37); BILIRUBIN,TOTAL 0.3 MG/DL (0.1-1.0); BLOOD UREA NITROGEN 5 MG/DL (7-18); BUN/CREATININE RATIO 12.2 (6.6-38.0); CALCIUM 8.4 MG/DL (8.5-10.1); CHLORIDE 98 MMOL/L (99-107); CREATININE 0.41 MG/DL (0.40-0.90); GLUCOSE 82 MG/DL (70-104); MAGNESIUM 1.4 MG/DL (1.5-2.4); PHOSPHORUS 2.5 MG/DL (2.3-4.5); SODIUM 143 MMOL/L (135-145); TOTAL PROTEIN 6.3 G/DL (6.4-8.2); eGFR > 90 ML/MIN
--- NOTE | 2019-03-11 06:11 | NUR ---
Problems reprioritized. Patient report given, questions answered & plan of care reviewed with Kaylyn.
--- NOTE | 2019-03-11 06:37 | NUR ---
Patient in room PCU 3019. I have received report from Lui STAPLES and had the opportunity to ask questions and assume patient care. Pt resting while on continuous Bipap at 35% FiO2, will continue to monitor.
[2019-03-11 06:49] LABS: ANION GAP 1 (8-16)
[2019-03-11 07:00] VITALS: BP 94/50
[2019-03-11 07:04] LABS: TOTAL CARBON DIOXIDE 44.1 MMOL/L (24-32)
--- NOTE | 2019-03-11 07:15 | NUR ---
PAGER ID: [phone] MESSAGE: [id number] Gogo [place] Critical CO2 44.1 down from 48.1. Thank you, Sophie #[phone]
[2019-03-11] MEDS: metoprolol succinate 25mg (24-HOUR) SR. Tablet PO SCH (08:00)
[2019-03-11] MEDS: methylnaltrexone br 12mg/0.6ml inj***SubQ only SQ SCH (08:00)
[2019-03-11] MEDS: docusate sodium 100mg/10ml UD cup PO SCH ×2 (08:00→21:48)
[2019-03-11] MEDS: furosemide 40mg/4ml inj IV SCH (08:00)
[2019-03-11 08:41] LABS: ABG BASE EXCESS 25.4 mmol/L (-2.0-3.0); ABG HCO3 53.8 mmol/L (22.0-26.0); ABG OXYGEN SATURATION 95.1 % (95-98); ABG PCO2 (T) 84.5 mmHg (32.0-45.0); ABG PH (T) 7.418 (7.350-7.450); ABG PO2 (T) 76.8 mmHg (83-108); ALLEN'S TEST Positive; FCOHb 0.8 % (0.5-1.5); FLOW 3 L/min; FMetHb 0.3 % (0.3-1.12); FO2Hb 94.1 % (94-100); PATIENT TEMPERATURE 36.1; TOTAL HEMOGLOBIN 9.1 G/dl (12.0-16.0)
--- NOTE | 2019-03-11 08:48 | NUR ---
PAGER ID: [phone] MESSAGE: [id number] [place] ABG drawn, PH 7.41, pCO2 84.5, HCO3 53.8, Blood pressure 91/55 (MAP53). Thank you, Sophie #[phone]
[2019-03-11] MEDS: pantoprazole 40mg Tablet.DR PO SCH ×2 (09:15→17:11)
[2019-03-11] MEDS: lactobacillus rhamnosus 10,000 MMU CELLS/CAPSULE PO SCH ×2 (09:15→21:51)
[2019-03-11] MEDS: magnesium Cl slow-release 64mg tablet PO PRN ×2 (09:16→21:50)
[2019-03-11] MEDS: fluvoxamine 25 MG tablet PO SCH ×2 (09:16→21:50)
[2019-03-11] MEDS: ferrous sulfate 325mg tablet PO SCH ×2 (09:16→21:51)
[2019-03-11] MEDS: quetiapine 100mg tablet PO SCH ×2 (09:16→21:51)
[2019-03-11] MEDS: aripiprazole 5mg tablet PO SCH (09:17)
[2019-03-11] MEDS: levoTHYROXINE 25mcg tablet PO SCH (09:17)
[2019-03-11] MEDS: valproate sod 250mg/5ml UD oral syrup PO SCH ×2 (09:18→21:49)
[2019-03-11] MEDS: pyridoxine 50mg tablet PO SCH (09:42)
[2019-03-11 11:00] VITALS: BP 102/43
--- NOTE | 2019-03-11 12:35 | NUR ---
Reassessment: Patient s/p BSS 03/09 with recs continuing pureed food with NTL d/t difficulty with thin liquids and regular solids at times. Patient with increase in PO intake documented at 75-100% meeting nutrient needs. Per MD notes urine culture grew MDR E.Coli however not being treated with abx per infectious disease recommendations d/t pt afebrile with white count WNL. Pt continue with BiPAP. LBM 03/10. Will continue to follow. Recommend: 1. Continue pureed food with nectar thick liquids per [facility] recs 2. Double proteins TID 3. Routine bowel care 4. weekly wts Addendum: 03/11/19 at [address] Amended: Links added.
[2019-03-11 15:00] VITALS: BP 117/52
[2019-03-11 16:31] LABS: ABG BASE EXCESS 19.8 mmol/L (-2.0-3.0); ABG HCO3 48.1 mmol/L (22.0-26.0); ABG OXYGEN SATURATION 97.3 % (95-98); ABG PCO2 (T) 85.5 mmHg (32.0-45.0); ABG PH (T) 7.368 (7.350-7.450); ABG PO2 (T) 100.4 mmHg (83-108); ALLEN'S TEST Positive; FCOHb 1.1 % (0.5-1.5); FMetHb 0.2 % (0.3-1.12); MINUTE VOLUME 14 L/min; RESPIRATORY RATE 16 b/min
--- NOTE | 2019-03-11 16:39 | NUR ---
PAGER ID: [phone] MESSAGE: [id number] [place] Critical high pCO2 of 85.5. Thank you, Sophie #[phone]
--- NOTE | 2019-03-11 18:11 | NUR ---
Problems reprioritized. Patient report given, questions answered & plan of care reviewed with Maddy STAPLES.
--- NOTE | 2019-03-11 18:46 | NUR ---
Patient in room PCU 3019. I have received report from PHU and had the opportunity to ask questions and assume patient care.
[2019-03-11 19:00] VITALS: BP 113/61
[2019-03-11] MEDS: polyethylene glycol 3350 17gm powd pack PO SCH (21:00)
[2019-03-11] MEDS: hydrOXYzine 25 MG tablet PO SCH (21:50)
[2019-03-11] MEDS: furosemide 20 MG/2 ML vial IV SCH (21:51)
[2019-03-11 23:00] VITALS: BP 119/55
[2019-03-12] VITALS (7 sets, daily range): BP systolic 91–118; BP diastolic 43–65
[2019-03-12] MEDS: ipratropium 0.5 MG/2.5ML nebule IH SCH ×4 (02:45→20:10)
[2019-03-12] MEDS: levalbuterol 0.63mg/3ml nebule IH SCH ×4 (02:45→20:10)
--- NOTE | 2019-03-12 06:00 | NUR ---
Patient in room PCU 3022. I have received report from Maddy STAPLES and had the opportunity to ask questions and assume patient care.
[2019-03-12 06:12] LABS: BASOPHILS % (AUTO) 0.6 % (0-1); EOSINOPHILS # (AUTO) 0.4 X10'3 (0-0.9); EOSINOPHILS % (AUTO) 5.6 % (0-6); HEMOGLOBIN 9.3 g/dl (12.0-16.0); LYMPHOCYTES % (AUTO) 31.2 % (21-51); MEAN CORPUSCULAR HEMOGLOBIN 32.1 PG (27.0-31.0); MEAN CORPUSCULAR HGB CONC 33.2 g/dL (33.0-36.5); MEAN CORPUSCULAR VOLUME 96.5 FL (78-98); MEAN PLATELET VOLUME 8.8 FL (7.4-10.4); MONOCYTES # (AUTO) 0.6 X10'3 (0-0.9); MONOCYTES % (AUTO) 9.1 % (2-12); NEUTROPHILS # (AUTO) 3.5 X10'3 (1.8-7.7); NEUTROPHILS % (AUTO) 53.5 % (42-75); PLATELET COUNT 168 X10'3 (140-440); RED CELL DISTRIBUTION WIDTH 21.1 % (11.5-14.5); WHITE BLOOD COUNT 6.5 X10'3 (4.5-11.0)
--- NOTE | 2019-03-12 06:17 | NUR ---
Problems reprioritized. Patient report given, questions answered & plan of care reviewed with Parker.
[2019-03-12 06:28] LABS: ALANINE AMINOTRANSFERASE 10 U/L (12-78); ALBUMIN 2.7 G/DL (3.4-5.0); ALBUMIN/GLOBULIN RATIO 0.7 (1.1-1.5); ALKALINE PHOSPHATASE 84 IU/L (46-116); ASPARTATE AMINO TRANSFERASE 8 U/L (10-37); BILIRUBIN,TOTAL 0.2 MG/DL (0.1-1.0); BLOOD UREA NITROGEN 7 MG/DL (7-18); BUN/CREATININE RATIO 14.3 (6.6-38.0); CALCIUM 8.7 MG/DL (8.5-10.1); CHLORIDE 97 MMOL/L (99-107); CREATININE 0.49 MG/DL (0.40-0.90); GLUCOSE 97 MG/DL (70-104); MAGNESIUM 1.7 MG/DL (1.5-2.4); PHOSPHORUS 3.3 MG/DL (2.3-4.5); POTASSIUM 3.7 MMOL/L (3.5-5.1); SODIUM 143 MMOL/L (135-145); TOTAL PROTEIN 6.7 G/DL (6.4-8.2); eGFR > 90 ML/MIN
[2019-03-12 06:42] LABS: ANION GAP -4 (8-16)
[2019-03-12 06:43] LABS: TOTAL CARBON DIOXIDE 49.7 MMOL/L (24-32)
[2019-03-12 07:02] LABS: PLATELET ESTIMATE NORMAL
[2019-03-12 07:03] LABS: ANISOCYTOSIS 3+; HYPOCHROMASIA 1+; POLYCHROMASIA 1+
--- NOTE | 2019-03-12 07:39 | NUR ---
PAGER ID: [phone] MESSAGE: [id number] KRYS CAMPBELL ABAnder = PH 7.415, PCO2 81.0, PO2 135, HCO3 50.8. WE ARE TAKING HERE OFF BPAP. AWAIT YOUR ADVICE. PRISCILA GOODWIN [phone] Addendum: 03/12/19 at 0739 by Priscila Cary RN Amended: Links added.
[2019-03-12] MEDS: furosemide 20 MG/2 ML vial IV SCH (07:51)
[2019-03-12] MEDS: docusate sodium 100mg/10ml UD cup PO SCH ×2 (07:51→20:57)
[2019-03-12] MEDS: ferrous sulfate 325mg tablet PO SCH ×2 (07:52→20:57)
[2019-03-12] MEDS: levoTHYROXINE 25mcg tablet PO SCH (07:52)
[2019-03-12] MEDS: quetiapine 100mg tablet PO SCH ×2 (07:52→20:56)
[2019-03-12] MEDS: lactobacillus rhamnosus 10,000 MMU CELLS/CAPSULE PO SCH ×2 (07:52→20:57)
[2019-03-12] MEDS: fluvoxamine 25 MG tablet PO SCH ×2 (07:52→20:56)
[2019-03-12] MEDS: valproate sod 250mg/5ml UD oral syrup PO SCH ×2 (07:52→20:57)
[2019-03-12] MEDS: metoprolol succinate 25mg (24-HOUR) SR. Tablet PO SCH (07:52)
[2019-03-12] MEDS: aripiprazole 5mg tablet PO SCH (07:52)
[2019-03-12] MEDS: pyridoxine 50mg tablet PO SCH (07:53)
[2019-03-12] MEDS: pantoprazole 40mg Tablet.DR PO SCH ×2 (07:53→17:39)
--- NOTE | 2019-03-12 08:00 | NUR ---
Manual BP taken, 110/55. Morning Metoprolol given.
[2019-03-12] MEDS: acetaZOLAMIDE IV 500mg inj IV SCH ×2 (11:05→20:59)
[2019-03-12 15:06] LABS: ABG BASE EXCESS 17.1 mmol/L (-2.0-3.0); ABG HCO3 45.3 mmol/L (22.0-26.0); ABG OXYGEN SATURATION 76.8 % (95-98); ABG PCO2 (T) 76.8 mmHg (32.0-45.0); ABG PH (T) 7.389 (7.350-7.450); ABG PO2 (T) 44.7 mmHg (83-108); ALLEN'S TEST Positive; FCOHb 0.9 % (0.5-1.5); FMetHb 0.5 % (0.3-1.12); FO2Hb 75.7 % (94-100); TOTAL HEMOGLOBIN 11.1 G/dl (12.0-16.0)
--- NOTE | 2019-03-12 18:00 | NUR ---
Problems reprioritized. Patient report given, questions answered & plan of care reviewed with Maddy STAPLES.
--- NOTE | 2019-03-12 18:13 | NUR ---
Patient in room PCU 3022. I have received report from Parker and had the opportunity to ask questions and assume patient care.
[2019-03-12] MEDS: polyethylene glycol 3350 17gm powd pack PO SCH (21:00)
[2019-03-13 02:00] VITALS: BP 92/51
[2019-03-13] MEDS: levalbuterol 0.63mg/3ml nebule IH SCH ×4 (02:49→20:15)
[2019-03-13] MEDS: ipratropium 0.5 MG/2.5ML nebule IH SCH ×4 (02:49→20:15)
[2019-03-13 05:44] LABS: BASOPHILS % (AUTO) 0.8 % (0-1); EOSINOPHILS # (AUTO) 0.5 X10'3 (0-0.9); EOSINOPHILS % (AUTO) 9.6 % (0-6); HEMATOCRIT 29.4 % (35.0-45.0); HEMOGLOBIN 9.6 g/dl (12.0-16.0); LYMPHOCYTES # (AUTO) 2.1 X10'3 (1.1-4.8); LYMPHOCYTES % (AUTO) 38.8 % (21-51); MEAN CORPUSCULAR HEMOGLOBIN 32.5 PG (27.0-31.0); MEAN CORPUSCULAR HGB CONC 32.7 g/dL (33.0-36.5); MEAN CORPUSCULAR VOLUME 99.3 FL (78-98); MEAN PLATELET VOLUME 8.2 FL (7.4-10.4); MONOCYTES # (AUTO) 0.5 X10'3 (0-0.9); MONOCYTES % (AUTO) 9.6 % (2-12); NEUTROPHILS # (AUTO) 2.3 X10'3 (1.8-7.7); NEUTROPHILS % (AUTO) 41.2 % (42-75); PLATELET COUNT 232 X10'3 (140-440); RED BLOOD COUNT 2.96 X10'6 (4.20-5.60); WHITE BLOOD COUNT 5.5 X10'3 (4.5-11.0)
[2019-03-13 05:51] LABS: ALANINE AMINOTRANSFERASE 11 U/L (12-78); ALBUMIN 2.5 G/DL (3.4-5.0); ALBUMIN/GLOBULIN RATIO 0.6 (1.1-1.5); ALKALINE PHOSPHATASE 88 IU/L (46-116); ANION GAP 2 (8-16); ASPARTATE AMINO TRANSFERASE 7 U/L (10-37); BILIRUBIN,TOTAL 0.3 MG/DL (0.1-1.0); BLOOD UREA NITROGEN 16 MG/DL (7-18); BUN/CREATININE RATIO 25.8 (6.6-38.0); CALCIUM 8.9 MG/DL (8.5-10.1); CHLORIDE 100 MMOL/L (99-107); CREATININE 0.62 MG/DL (0.40-0.90); GLUCOSE 103 MG/DL (70-104); MAGNESIUM 1.9 MG/DL (1.5-2.4); PHOSPHORUS 4.3 MG/DL (2.3-4.5); POTASSIUM 3.5 MMOL/L (3.5-5.1); SODIUM 141 MMOL/L (135-145); TOTAL CARBON DIOXIDE 39.2 MMOL/L (24-32); TOTAL PROTEIN 6.8 G/DL (6.4-8.2); eGFR > 90 ML/MIN
[2019-03-13 06:00] VITALS: BP 99/53
--- NOTE | 2019-03-13 06:00 | NUR ---
Problems reprioritized. Patient report given, questions answered & plan of care reviewed with Parker.
--- NOTE | 2019-03-13 06:20 | NUR ---
Patient in room PCU 3022. I have received report from Maddy STAPLES and had the opportunity to ask questions and assume patient care.
[2019-03-13 07:08] LABS: HYPOCHROMASIA 1+; PLATELET ESTIMATE NORMAL; POLYCHROMASIA 1+
[2019-03-13 07:09] LABS: ANISOCYTOSIS 3+
[2019-03-13 07:55] LABS: ABG HCO3 39.3 mmol/L (22.0-26.0); ABG PCO2 (T) 77.9 mmHg (32.0-45.0); ABG PH (T) 7.321 (7.350-7.450); ABG PO2 (T) 75.8 mmHg (83-108); ALLEN'S TEST Positive; FCOHb 0.6 % (0.5-1.5); FMetHb 0.2 % (0.3-1.12); FO2Hb 92.3 % (94-100); MINUTE VOLUME 8 L/min; RESPIRATORY RATE 16 b/min; RESPIRATORY RATE (OBSERVED) 22 b/min; TOTAL HEMOGLOBIN 10.1 G/dl (12.0-16.0)
[2019-03-13] MEDS: metoprolol succinate 25mg (24-HOUR) SR. Tablet PO SCH (08:00)
[2019-03-13] MEDS: valproate sod 250mg/5ml UD oral syrup PO SCH ×2 (08:14→20:25)
[2019-03-13] MEDS: quetiapine 100mg tablet PO SCH ×2 (08:15→20:25)
[2019-03-13] MEDS: lactobacillus rhamnosus 10,000 MMU CELLS/CAPSULE PO SCH ×2 (08:15→20:25)
[2019-03-13] MEDS: aripiprazole 5mg tablet PO SCH (08:15)
[2019-03-13] MEDS: pantoprazole 40mg Tablet.DR PO SCH ×2 (08:15→17:10)
[2019-03-13] MEDS: ferrous sulfate 325mg tablet PO SCH ×2 (08:15→20:25)
[2019-03-13] MEDS: docusate sodium 100mg/10ml UD cup PO SCH ×2 (08:15→20:25)
[2019-03-13] MEDS: fluvoxamine 25 MG tablet PO SCH ×2 (08:15→20:25)
[2019-03-13] MEDS: levoTHYROXINE 25mcg tablet PO SCH (08:15)
[2019-03-13] MEDS: pyridoxine 50mg tablet PO SCH (08:15)
[2019-03-13] MEDS: acetaZOLAMIDE IV 500mg inj IV SCH ×2 (08:16→20:26)
[2019-03-13 11:11] VITALS: BP 110/54
[2019-03-13 15:00] VITALS: BP 95/60
--- NOTE | 2019-03-13 18:10 | NUR ---
Problems reprioritized. Patient report given, questions answered & plan of care reviewed with Debo STAPLES.
--- NOTE | 2019-03-13 18:52 | NUR ---
Received report from Parker STAPLES pt is in no apparent distress sitter at bedside
[2019-03-13 19:18] VITALS: BP 104/58
[2019-03-13] MEDS: polyethylene glycol 3350 17gm powd pack PO SCH (20:25)
[2019-03-13 23:18] VITALS: BP 106/50
[2019-03-14] MEDS: levalbuterol 0.63mg/3ml nebule IH SCH ×4 (02:57→21:13)
[2019-03-14] MEDS: ipratropium 0.5 MG/2.5ML nebule IH SCH ×4 (02:57→21:13)
[2019-03-14 03:20] VITALS: BP 120/58
[2019-03-14 06:00] VITALS: BP 100/71
--- NOTE | 2019-03-14 06:03 | NUR ---
Problems reprioritized. Patient report given, questions answered & plan of care reviewed with Parker STAPLES.
--- NOTE | 2019-03-14 06:05 | NUR ---
Patient in room PCU 3022. I have received report from Debo STAPLES and had the opportunity to ask questions and assume patient care.
[2019-03-14 06:07] LABS: BASOPHILS % (AUTO) 0.8 % (0-1); EOSINOPHILS # (AUTO) 0.5 X10'3 (0-0.9); EOSINOPHILS % (AUTO) 10.2 % (0-6); HEMATOCRIT 33.4 % (35.0-45.0); HEMOGLOBIN 10.9 g/dl (12.0-16.0); LYMPHOCYTES # (AUTO) 2.3 X10'3 (1.1-4.8); LYMPHOCYTES % (AUTO) 44.4 % (21-51); MEAN CORPUSCULAR HEMOGLOBIN 32.1 PG (27.0-31.0); MEAN CORPUSCULAR HGB CONC 32.7 g/dL (33.0-36.5); MEAN CORPUSCULAR VOLUME 97.9 FL (78-98); MONOCYTES # (AUTO) 0.4 X10'3 (0-0.9); MONOCYTES % (AUTO) 8.1 % (2-12); NEUTROPHILS # (AUTO) 1.9 X10'3 (1.8-7.7); NEUTROPHILS % (AUTO) 36.5 % (42-75); PLATELET COUNT 259 X10'3 (140-440); RED BLOOD COUNT 3.41 X10'6 (4.20-5.60); WHITE BLOOD COUNT 5.2 X10'3 (4.5-11.0)
[2019-03-14 06:27] LABS: ALANINE AMINOTRANSFERASE 9 U/L (12-78); ALBUMIN 2.8 G/DL (3.4-5.0); ALBUMIN/GLOBULIN RATIO 0.6 (1.1-1.5); ALKALINE PHOSPHATASE 96 IU/L (46-116); ANION GAP 2 (8-16); ASPARTATE AMINO TRANSFERASE 6 U/L (10-37); BILIRUBIN,TOTAL 0.2 MG/DL (0.1-1.0); BLOOD UREA NITROGEN 22 MG/DL (7-18); BUN/CREATININE RATIO 43.1 (6.6-38.0); CALCIUM 8.9 MG/DL (8.5-10.1); CHLORIDE 102 MMOL/L (99-107); CREATININE 0.51 MG/DL (0.40-0.90); GLUCOSE 91 MG/DL (70-104); PHOSPHORUS 3.4 MG/DL (2.3-4.5); POTASSIUM 3.6 MMOL/L (3.5-5.1); SODIUM 139 MMOL/L (135-145); TOTAL CARBON DIOXIDE 35.5 MMOL/L (24-32); TOTAL PROTEIN 7.5 G/DL (6.4-8.2); eGFR > 90 ML/MIN
[2019-03-14 07:26] LABS: ABG BASE EXCESS 6.2 mmol/L (-2.0-3.0); ABG OXYGEN SATURATION 94.3 % (95-98); ABG PCO2 (T) 60.4 mmHg (32.0-45.0); ABG PH (T) 7.355 (7.350-7.450); ABG PO2 (T) 73.5 mmHg (83-108); ALLEN'S TEST Positive; FCOHb 0.6 % (0.5-1.5); FLOW 0 L/min; FMetHb 0.3 % (0.3-1.12); FO2Hb 93.5 % (94-100)
[2019-03-14] MEDS: fluvoxamine 25 MG tablet PO SCH ×2 (07:39→21:50)
[2019-03-14] MEDS: valproate sod 250mg/5ml UD oral syrup PO SCH ×2 (07:39→21:30)
[2019-03-14] MEDS: docusate sodium 100mg/10ml UD cup PO SCH ×2 (07:39→21:32)
[2019-03-14] MEDS: ferrous sulfate 325mg tablet PO SCH ×2 (07:40→21:28)
[2019-03-14] MEDS: levoTHYROXINE 25mcg tablet PO SCH (07:40)
[2019-03-14] MEDS: quetiapine 100mg tablet PO SCH ×2 (07:40→21:28)
[2019-03-14] MEDS: pantoprazole 40mg Tablet.DR PO SCH ×2 (07:40→17:30)
[2019-03-14] MEDS: pyridoxine 50mg tablet PO SCH (07:40)
[2019-03-14] MEDS: aripiprazole 5mg tablet PO SCH (07:40)
[2019-03-14] MEDS: lactobacillus rhamnosus 10,000 MMU CELLS/CAPSULE PO SCH ×2 (07:40→21:29)
[2019-03-14] MEDS: metoprolol succinate 25mg (24-HOUR) SR. Tablet PO SCH (08:00)
[2019-03-14] MEDS: acetaZOLAMIDE IV 500mg inj IV SCH ×2 (10:40→21:49)
[2019-03-14 11:00] VITALS: BP 85/49
--- NOTE | 2019-03-14 11:00 | NUR ---
Per Dr. Morton order. decrease metoprolol doasage to 25mg. Give one dose now.
[2019-03-14] MEDS ORDERED: metoprolol succinate 25mg (24-HOUR) SR. Tablet PO ONE (11:10)
--- NOTE | 2019-03-14 11:22 | NUR ---
Pts BP 90/50, HR 108. Dr. Morton made aware. Give metoprolol 25mg per Shima orders.
[2019-03-14 15:00] VITALS: BP 93/63
--- NOTE | 2019-03-14 18:23 | NUR ---
Problems reprioritized. Patient report given, questions answered & plan of care reviewed with Pam STAPLES.
--- NOTE | 2019-03-14 18:24 | NUR ---
Patient in room PCU 3022. I have received report from JHOAN Canales and had the opportunity to ask questions and assume patient care.
[2019-03-14 19:00] VITALS: BP 96/57
[2019-03-14] MEDS: polyethylene glycol 3350 17gm powd pack PO SCH (21:33)
--- NOTE | 2019-03-14 22:00 | NUR ---
Patient was given Diamox per MD order by break nurse Gabriella. As I came off of my break and looked at this patients IV site it was reddened and appeared infiltrated with two small blistered areas. DC'd patients IV immediately. Will continue to monitor.
[2019-03-14 23:00] VITALS: BP 107/81
--- NOTE | 2019-03-15 02:35 | NUR ---
Sent to [facility]: MESSAGE: ROOM [id number] Gogo [place]: DIAMOX IV given at 2149 IV infiltrated after IV push according to Gabriella stephens nurse. Reddened area w/ 2 blisters initially Reddened area spread mildly w/ 2 new blistered areas. Please advise thanks, Pam [phone]
[2019-03-15] MEDS: ipratropium 0.5 MG/2.5ML nebule IH SCH ×4 (02:37→20:49)
[2019-03-15] MEDS: levalbuterol 0.63mg/3ml nebule IH SCH ×4 (02:37→20:49)
--- NOTE | 2019-03-15 02:39 | NUR ---
Re-assessed patient's IV site of infiltration. Initial area is less red, two blisters have popped. Reddened area has traveled up the arm mildly with two new blisters. I have notified Dr. Cao and will continue to monitor.
[2019-03-15 03:00] VITALS: BP 128/57
[2019-03-15 06:00] VITALS: BP 116/58
--- NOTE | 2019-03-15 06:35 | NUR ---
Patient in room PCU 3022. I have received report from JHOAN Orozco and had the opportunity to ask questions and assume patient care.
--- NOTE | 2019-03-15 06:44 | NUR ---
Problems reprioritized. Patient report given, questions answered & plan of care reviewed with JHOAN Chapman.
[2019-03-15 07:05] LABS: ALANINE AMINOTRANSFERASE 10 U/L (12-78); ALBUMIN 2.6 G/DL (3.4-5.0); ALBUMIN/GLOBULIN RATIO 0.6 (1.1-1.5); ALKALINE PHOSPHATASE 94 IU/L (46-116); ANION GAP 2 (8-16); ASPARTATE AMINO TRANSFERASE 9 U/L (10-37); BILIRUBIN,TOTAL 0.2 MG/DL (0.1-1.0); BLOOD UREA NITROGEN 25 MG/DL (7-18); CALCIUM 9.2 MG/DL (8.5-10.1); CHLORIDE 101 MMOL/L (99-107); CREATININE 0.51 MG/DL (0.40-0.90); GLUCOSE 96 MG/DL (70-104); POTASSIUM 3.7 MMOL/L (3.5-5.1); SODIUM 135 MMOL/L (135-145); TOTAL CARBON DIOXIDE 31.9 MMOL/L (24-32); eGFR > 90 ML/MIN
[2019-03-15 09:36] LABS: ABG BASE EXCESS 5.3 mmol/L (-2.0-3.0); ABG HCO3 31.7 mmol/L (22.0-26.0); ABG OXYGEN SATURATION 94.2 % (95-98); ABG PCO2 (T) 54.2 mmHg (32.0-45.0); ABG PH (T) 7.383 (7.350-7.450); ABG PO2 (T) 72.3 mmHg (83-108); ALLEN'S TEST Positive; FCOHb 0.9 % (0.5-1.5); FLOW 0 L/min; FMetHb 0.4 % (0.3-1.12); PATIENT TEMPERATURE 36.4; TOTAL HEMOGLOBIN 11.1 G/dl (12.0-16.0)
[2019-03-15] MEDS: valproate sod 250mg/5ml UD oral syrup PO SCH ×2 (10:30→20:51)
[2019-03-15] MEDS: pantoprazole 40mg Tablet.DR PO SCH ×2 (10:31→17:28)
[2019-03-15] MEDS: ferrous sulfate 325mg tablet PO SCH ×2 (10:31→20:51)
[2019-03-15] MEDS: lactobacillus rhamnosus 10,000 MMU CELLS/CAPSULE PO SCH ×2 (10:31→20:50)
[2019-03-15] MEDS: fluvoxamine 25 MG tablet PO SCH ×2 (10:31→20:51)
[2019-03-15] MEDS: docusate sodium 100mg/10ml UD cup PO SCH ×2 (10:31→20:51)
[2019-03-15] MEDS: quetiapine 100mg tablet PO SCH ×2 (10:32→20:50)
[2019-03-15] MEDS: levoTHYROXINE 25mcg tablet PO SCH (10:32)
[2019-03-15] MEDS: aripiprazole 5mg tablet PO SCH (10:32)
[2019-03-15] MEDS: pyridoxine 50mg tablet PO SCH (10:32)
[2019-03-15] MEDS: metoprolol succinate 25mg (24-HOUR) SR. Tablet PO SCH (10:33)
[2019-03-15 11:00] VITALS: BP 114/60
[2019-03-15] MEDS: acetaZOLAMIDE IV 500mg inj IV SCH (11:06)
--- NOTE | 2019-03-15 11:54 | NUR ---
Reassessment: Pt continues with good PO intake documented at 75-100% receiving double protein TID meeting nutrient needs. Per MD notes pt compensating for metabolic alkalosis, to d/c Lasix and use BiPAP when sleeping. LB 7. Will continue to follow. Recommend: 1. Continue pureed food with nectar thick liquids per [employer] recs 2. Double proteins TID 3. Routine bowel care 4. weekly wts Addendum: 03/15/19 at [address] Amended: Links added.
[2019-03-15 15:00] VITALS: BP 139/69
--- NOTE | 2019-03-15 18:20 | NUR ---
Problems reprioritized. Patient report given, questions answered & plan of care reviewed with JHOAN Orozco.
[2019-03-15 19:00] VITALS: BP 137/63
[2019-03-15] MEDS: polyethylene glycol 3350 17gm powd pack PO SCH (20:51)
[2019-03-15 23:00] VITALS: BP 113/56
[2019-03-16] MEDS: ipratropium 0.5 MG/2.5ML nebule IH SCH ×4 (02:45→20:42)
[2019-03-16] MEDS: levalbuterol 0.63mg/3ml nebule IH SCH ×4 (02:45→20:42)
[2019-03-16 03:00] VITALS: BP 99/48
[2019-03-16 05:23] LABS: BASOPHILS # (AUTO) 0.1 X10'3 (0-0.2); BASOPHILS % (AUTO) 1.9 % (0-1); EOSINOPHILS # (AUTO) 0.5 X10'3 (0-0.9); EOSINOPHILS % (AUTO) 7.8 % (0-6); HEMATOCRIT 32.3 % (35.0-45.0); HEMOGLOBIN 10.6 g/dl (12.0-16.0); LYMPHOCYTES % (AUTO) 45.9 % (21-51); MEAN CORPUSCULAR HEMOGLOBIN 32.2 PG (27.0-31.0); MEAN CORPUSCULAR HGB CONC 32.7 g/dL (33.0-36.5); MEAN CORPUSCULAR VOLUME 98.4 FL (78-98); MEAN PLATELET VOLUME 7.2 FL (7.4-10.4); MONOCYTES # (AUTO) 0.4 X10'3 (0-0.9); MONOCYTES % (AUTO) 6.3 % (2-12); NEUTROPHILS # (AUTO) 2.5 X10'3 (1.8-7.7); NEUTROPHILS % (AUTO) 38.1 % (42-75); PLATELET COUNT 240 X10'3 (140-440); RED BLOOD COUNT 3.28 X10'6 (4.20-5.60); RED CELL DISTRIBUTION WIDTH 21.6 % (11.5-14.5); WHITE BLOOD COUNT 6.4 X10'3 (4.5-11.0)
[2019-03-16 05:55] LABS: ABG BASE EXCESS 22.5 mmol/L (-2.0-3.0); ABG HCO3 50.8 mmol/L (22.0-26.0); ABG PH (T) 7.415 (7.350-7.450); ALLEN'S TEST Positive; FCOHb 0.3 % (0.5-1.5); FMetHb 0.3 % (0.3-1.12); FO2Hb 97.4 % (94-100); RESPIRATORY RATE 16 b/min; TOTAL HEMOGLOBIN 10.2 G/dl (12.0-16.0)
[2019-03-16 06:00] LABS: ALBUMIN 2.6 G/DL (3.4-5.0); ANION GAP 3 (8-16); BLOOD UREA NITROGEN 28 MG/DL (7-18); BUN/CREATININE RATIO 51.9 (6.6-38.0); CALCIUM 8.4 MG/DL (8.5-10.1); CHLORIDE 101 MMOL/L (99-107); CREATININE 0.54 MG/DL (0.40-0.90); GLUCOSE 90 MG/DL (70-104); MAGNESIUM 1.7 MG/DL (1.5-2.4); PHOSPHORUS 3.3 MG/DL (2.3-4.5); SODIUM 138 MMOL/L (135-145); TOTAL CARBON DIOXIDE 34.3 MMOL/L (24-32); eGFR > 90 ML/MIN
--- NOTE | 2019-03-16 06:34 | NUR ---
Patient in room PCU 3022. I have received report from JHOAN Orozco and had the opportunity to ask questions and assume patient care.
--- NOTE | 2019-03-16 06:35 | NUR ---
Problems reprioritized. Patient report given, questions answered & plan of care reviewed with JHOAN Tejada.
[2019-03-16 07:00] VITALS: BP 100/52
[2019-03-16 07:25] LABS: ABG BASE EXCESS 8.2 mmol/L (-2.0-3.0); ABG HCO3 35.5 mmol/L (22.0-26.0); ABG PCO2 (T) 65.5 mmHg (32.0-45.0); ABG PH (T) 7.352 (7.350-7.450); ABG PO2 (T) 59.4 mmHg (83-108); FCOHb 0.8 % (0.5-1.5); FLOW 0 L/min; FMetHb 0.3 % (0.3-1.12); RESPIRATORY RATE (OBSERVED) 20 b/min; TOTAL HEMOGLOBIN 10.6 G/dl (12.0-16.0)
[2019-03-16] MEDS: metoprolol succinate 25mg (24-HOUR) SR. Tablet PO SCH (08:00)
[2019-03-16] MEDS: pantoprazole 40mg Tablet.DR PO SCH ×2 (08:27→17:34)
[2019-03-16] MEDS: lactobacillus rhamnosus 10,000 MMU CELLS/CAPSULE PO SCH ×2 (08:28→20:35)
[2019-03-16] MEDS: aripiprazole 5mg tablet PO SCH (08:28)
[2019-03-16] MEDS: docusate sodium 100mg/10ml UD cup PO SCH ×2 (08:28→20:37)
[2019-03-16] MEDS: ferrous sulfate 325mg tablet PO SCH ×2 (08:29→20:34)
[2019-03-16] MEDS: quetiapine 100mg tablet PO SCH ×2 (08:30→20:35)
[2019-03-16] MEDS: fluvoxamine 25 MG tablet PO SCH ×2 (08:30→20:34)
[2019-03-16] MEDS: levoTHYROXINE 25mcg tablet PO SCH (08:30)
[2019-03-16] MEDS: pyridoxine 50mg tablet PO SCH (08:31)
[2019-03-16] MEDS: valproate sod 250mg/5ml UD oral syrup PO SCH ×2 (08:34→20:36)
--- NOTE | 2019-03-16 08:45 | NUR ---
Discussed patients blood gases with RT. PO2 was 59 and RT put her one 2L NC to try and get her saturations up. RT then contacted Dr. Morton for a change in orders so he could put the bipap on her during the day also. Dr. Morton got back to RT and said that he didn't want her on bipap. When Dr. Morton rounded a little bit later in the day he didn't want her on 2L of O2 because she is retaining and her O2 saturation shouldn't be in the high 90's. I explained that the RT explicitly said to keep her on the 2L because her PO2 was very low. He understood but doesn't ever want her sats above 92; he wants them to stay between 89-[address] Morton also said that we could put her on bipap during the day if she is sleeping.
--- NOTE | 2019-03-16 10:00 | NUR ---
Held metoprolol because her BP was in the 80's systolically. She has been bouncing around a little bit, but never above [address] Morton know.
[2019-03-16 11:00] VITALS: BP 95/52
[2019-03-16 15:43] VITALS: BP 100/51
--- NOTE | 2019-03-16 18:27 | NUR ---
Problems reprioritized. Patient report given, questions answered & plan of care reviewed with JHOAN Orozco.
[2019-03-16 19:00] VITALS: BP 112/59
[2019-03-16] MEDS: polyethylene glycol 3350 17gm powd pack PO SCH (20:37)
[2019-03-16 23:00] VITALS: BP 114/58
[2019-03-17] VITALS (7 sets, daily range): BP systolic 99–118; BP diastolic 51–63
[2019-03-17] MEDS: ipratropium 0.5 MG/2.5ML nebule IH SCH ×4 (02:45→20:48)
[2019-03-17] MEDS: levalbuterol 0.63mg/3ml nebule IH SCH ×4 (02:46→20:48)
--- NOTE | 2019-03-17 06:00 | NUR ---
Patient in room PCU 3022. I have received report from JHOAN Orozco and had the opportunity to ask questions and assume patient care.
--- NOTE | 2019-03-17 06:20 | NUR ---
Problems reprioritized. Patient report given, questions answered & plan of care reviewed with JHOAN Damian.
--- NOTE | 2019-03-17 06:23 | NUR ---
Patient in room PCU 3022. I have received report from JHOAN Orozco and had the opportunity to ask questions and assume patient care.
[2019-03-17 06:29] LABS: BASOPHILS % (AUTO) 0.5 % (0-1); EOSINOPHILS # (AUTO) 0.4 X10'3 (0-0.9); EOSINOPHILS % (AUTO) 5.3 % (0-6); HEMATOCRIT 30.5 % (35.0-45.0); LYMPHOCYTES # (AUTO) 2.7 X10'3 (1.1-4.8); LYMPHOCYTES % (AUTO) 39.9 % (21-51); MEAN CORPUSCULAR HEMOGLOBIN 32.5 PG (27.0-31.0); MEAN CORPUSCULAR HGB CONC 32.9 g/dL (33.0-36.5); MEAN CORPUSCULAR VOLUME 98.8 FL (78-98); MEAN PLATELET VOLUME 7.8 FL (7.4-10.4); MONOCYTES # (AUTO) 0.6 X10'3 (0-0.9); MONOCYTES % (AUTO) 8.2 % (2-12); NEUTROPHILS # (AUTO) 3.1 X10'3 (1.8-7.7); NEUTROPHILS % (AUTO) 46.1 % (42-75); PLATELET COUNT 197 X10'3 (140-440); RED BLOOD COUNT 3.09 X10'6 (4.20-5.60); RED CELL DISTRIBUTION WIDTH 20.8 % (11.5-14.5); WHITE BLOOD COUNT 6.7 X10'3 (4.5-11.0)
[2019-03-17 06:43] LABS: ALBUMIN 2.5 G/DL (3.4-5.0); ANION GAP -1 (8-16); BLOOD UREA NITROGEN 22 MG/DL (7-18); BUN/CREATININE RATIO 48.9 (6.6-38.0); CALCIUM 8.9 MG/DL (8.5-10.1); CHLORIDE 104 MMOL/L (99-107); CREATININE 0.45 MG/DL (0.40-0.90); GLUCOSE 91 MG/DL (70-104); MAGNESIUM 1.6 MG/DL (1.5-2.4); PHOSPHORUS 3.2 MG/DL (2.3-4.5); POTASSIUM 4.2 MMOL/L (3.5-5.1); SODIUM 139 MMOL/L (135-145); TOTAL CARBON DIOXIDE 36.1 MMOL/L (24-32); eGFR > 90 ML/MIN
[2019-03-17] MEDS: pantoprazole 40mg Tablet.DR PO SCH ×2 (07:31→17:24)
[2019-03-17] MEDS: docusate sodium 100mg/10ml UD cup PO SCH ×2 (07:31→20:21)
[2019-03-17] MEDS: fluvoxamine 25 MG tablet PO SCH ×2 (07:31→20:24)
[2019-03-17] MEDS: lactobacillus rhamnosus 10,000 MMU CELLS/CAPSULE PO SCH ×2 (07:33→20:24)
[2019-03-17] MEDS: ferrous sulfate 325mg tablet PO SCH ×2 (07:33→20:24)
[2019-03-17] MEDS: levoTHYROXINE 25mcg tablet PO SCH (07:33)
[2019-03-17] MEDS: metoprolol succinate 25mg (24-HOUR) SR. Tablet PO SCH (07:33)
[2019-03-17] MEDS: pyridoxine 50mg tablet PO SCH (07:33)
[2019-03-17] MEDS: quetiapine 100mg tablet PO SCH ×2 (07:33→20:30)
[2019-03-17] MEDS: valproate sod 250mg/5ml UD oral syrup PO SCH ×2 (07:34→20:23)
[2019-03-17 07:36] LABS: ANISOCYTOSIS 3+; PLATELET ESTIMATE NORMAL
[2019-03-17] MEDS: aripiprazole 5mg tablet PO SCH (07:43)
--- NOTE | 2019-03-17 08:38 | NUR ---
I have reviewed and agree with all medications administered and interventions performed by [facility] Student(Unique Garcia) Addendum: 03/17/19 at 0839 by Christopher Velez RT Amended: Links added. Addendum: 03/17/19 at 0951 by Christopher Velez RT note entered on wrong tx time
--- NOTE | 2019-03-17 09:56 | NUR ---
I have reviewed and agree with all medications administered and interventions performed by [facility] Student (J LUIS SHAHRZAD) Addendum: 03/17/19 at 0956 by Christopher Velez RT Amended: Links added.
--- NOTE | 2019-03-17 10:08 | NUR ---
I have reviewed and agree with all medications administered and interventions performed by [facility] Student(WILLAM CAMPBELL Addendum: 03/17/19 at 1009 by Christopher Velez RT Amended: Links added.
--- NOTE | 2019-03-17 11:19 | NUR ---
Offered ambulation, or bed mobility patient deferred at this time
--- NOTE | 2019-03-17 14:18 | NUR ---
Assisted pt to chair at bedside with minimal difficulty. Pt denied dizziness or discomfort upon standing. Vital signs obtained, WNL. Sitter present in room. Will continue to closely monitor.
--- NOTE | 2019-03-17 18:15 | NUR ---
Problems reprioritized. Patient report given, questions answered & plan of care reviewed with JHOAN Dean.
--- NOTE | 2019-03-17 18:25 | NUR ---
Problems reprioritized. Patient report given, questions answered & plan of care reviewed with JHOAN Spring .
--- NOTE | 2019-03-17 18:39 | NUR ---
Patient in room PCU 3022. I have received report from Nati STAPLES and had the opportunity to ask questions and assume patient care.
[2019-03-17] MEDS: polyethylene glycol 3350 17gm powd pack PO SCH (20:25)
[2019-03-18] VITALS (7 sets, daily range): BP systolic 83–110; BP diastolic 50–70
[2019-03-18] MEDS: acetaminophen 325mg/10.15ml oral unit dose solution PO PRN ×2 (00:27→16:44)
[2019-03-18] MEDS: ipratropium 0.5 MG/2.5ML nebule IH SCH ×4 (02:51→21:31)
[2019-03-18] MEDS: levalbuterol 0.63mg/3ml nebule IH SCH ×4 (02:51→21:31)
[2019-03-18 05:30] LABS: BASOPHILS # (AUTO) 0.1 X10'3 (0-0.2); EOSINOPHILS # (AUTO) 0.4 X10'3 (0-0.9); EOSINOPHILS % (AUTO) 5.9 % (0-6); HEMATOCRIT 30.9 % (35.0-45.0); HEMOGLOBIN 10.1 g/dl (12.0-16.0); LYMPHOCYTES # (AUTO) 3.2 X10'3 (1.1-4.8); LYMPHOCYTES % (AUTO) 47.3 % (21-51); MEAN CORPUSCULAR HEMOGLOBIN 32.3 PG (27.0-31.0); MEAN CORPUSCULAR HGB CONC 32.7 g/dL (33.0-36.5); MEAN CORPUSCULAR VOLUME 98.8 FL (78-98); MEAN PLATELET VOLUME 7.4 FL (7.4-10.4); MONOCYTES # (AUTO) 0.5 X10'3 (0-0.9); MONOCYTES % (AUTO) 7.2 % (2-12); NEUTROPHILS # (AUTO) 2.6 X10'3 (1.8-7.7); NEUTROPHILS % (AUTO) 38.6 % (42-75); PLATELET COUNT 187 X10'3 (140-440); RED BLOOD COUNT 3.13 X10'6 (4.20-5.60); RED CELL DISTRIBUTION WIDTH 20.5 % (11.5-14.5); WHITE BLOOD COUNT 6.8 X10'3 (4.5-11.0)
--- NOTE | 2019-03-18 06:11 | NUR ---
Problems reprioritized. Patient report given, questions answered & plan of care reviewed with Nati STAPLES.
--- NOTE | 2019-03-18 06:15 | NUR ---
Patient in room PCU 3022. I have received report from JHOAN Dean and had the opportunity to ask questions and assume patient care.
[2019-03-18 06:30] LABS: ALBUMIN 2.5 G/DL (3.4-5.0); ANION GAP 3 (8-16); BLOOD UREA NITROGEN 20 MG/DL (7-18); BUN/CREATININE RATIO 46.5 (6.6-38.0); CALCIUM 8.9 MG/DL (8.5-10.1); CHLORIDE 100 MMOL/L (99-107); CREATININE 0.43 MG/DL (0.40-0.90); GLUCOSE 87 MG/DL (70-104); MAGNESIUM 1.6 MG/DL (1.5-2.4); PHOSPHORUS 2.9 MG/DL (2.3-4.5); SODIUM 140 MMOL/L (135-145); TOTAL CARBON DIOXIDE 37.4 MMOL/L (24-32); eGFR > 90 ML/MIN
[2019-03-18] MEDS: pyridoxine 50mg tablet PO SCH (07:11)
[2019-03-18] MEDS: lactobacillus rhamnosus 10,000 MMU CELLS/CAPSULE PO SCH ×2 (07:11→22:34)
[2019-03-18] MEDS: ferrous sulfate 325mg tablet PO SCH ×2 (07:11→22:34)
[2019-03-18] MEDS: aripiprazole 5mg tablet PO SCH (07:11)
[2019-03-18] MEDS: docusate sodium 100mg/10ml UD cup PO SCH ×2 (07:12→22:34)
[2019-03-18] MEDS: valproate sod 250mg/5ml UD oral syrup PO SCH ×2 (07:12→22:34)
[2019-03-18] MEDS: fluvoxamine 25 MG tablet PO SCH ×2 (07:12→22:34)
[2019-03-18] MEDS: levoTHYROXINE 25mcg tablet PO SCH (07:13)
[2019-03-18] MEDS: quetiapine 100mg tablet PO SCH ×2 (07:13→22:33)
[2019-03-18] MEDS: metoprolol succinate 25mg (24-HOUR) SR. Tablet PO SCH (07:13)
[2019-03-18] MEDS: pantoprazole 40mg Tablet.DR PO SCH ×2 (07:13→16:41)
[2019-03-18 07:54] LABS: ANISOCYTOSIS 3+; PLATELET ESTIMATE NORMAL; STOMATOCYTES 1+
--- NOTE | 2019-03-18 14:26 | NUR ---
Recieved report from JHOAN Geiger assumed care of pt. She is currently resting comfortably
--- NOTE | 2019-03-18 18:24 | NUR ---
Problems reprioritized. Patient report given, questions answered & plan of care reviewed with JHOAN Castañeda.
--- NOTE | 2019-03-18 18:25 | NUR ---
Patient in room PCU 3022. I have received report from Nati STAPLES and had the opportunity to ask questions and assume patient care.
[2019-03-18] MEDS: polyethylene glycol 3350 17gm powd pack PO SCH (22:35)
[2019-03-19 02:00] VITALS: BP 102/51
[2019-03-19] MEDS: pantoprazole 40mg Tablet.DR PO SCH ×2 (03:02→17:03)
[2019-03-19] MEDS: ipratropium 0.5 MG/2.5ML nebule IH SCH ×4 (03:02→20:25)
[2019-03-19] MEDS: levalbuterol 0.63mg/3ml nebule IH SCH ×4 (03:03→20:25)
[2019-03-19 06:00] VITALS: BP 101/57
[2019-03-19 06:05] LABS: BASOPHILS # (AUTO) 0.1 X10'3 (0-0.2); BASOPHILS % (AUTO) 1.2 % (0-1); EOSINOPHILS # (AUTO) 0.3 X10'3 (0-0.9); EOSINOPHILS % (AUTO) 5.9 % (0-6); HEMATOCRIT 31.3 % (35.0-45.0); HEMOGLOBIN 10.4 g/dl (12.0-16.0); LYMPHOCYTES # (AUTO) 2.6 X10'3 (1.1-4.8); MEAN CORPUSCULAR HEMOGLOBIN 32.5 PG (27.0-31.0); MEAN CORPUSCULAR HGB CONC 33.1 g/dL (33.0-36.5); MEAN CORPUSCULAR VOLUME 98.2 FL (78-98); MEAN PLATELET VOLUME 8.6 FL (7.4-10.4); MONOCYTES # (AUTO) 0.4 X10'3 (0-0.9); MONOCYTES % (AUTO) 7.7 % (2-12); NEUTROPHILS % (AUTO) 37.2 % (42-75); PLATELET COUNT 173 X10'3 (140-440); RED BLOOD COUNT 3.18 X10'6 (4.20-5.60); RED CELL DISTRIBUTION WIDTH 20.2 % (11.5-14.5); WHITE BLOOD COUNT 5.5 X10'3 (4.5-11.0)
--- NOTE | 2019-03-19 06:24 | NUR ---
Problems reprioritized. Patient report given, questions answered & plan of care reviewed with Sophie STAPLES.
--- NOTE | 2019-03-19 06:30 | NUR ---
Patient in room PCU 3022. I have received report from Maddy STAPLES and had the opportunity to ask questions and assume patient care.
[2019-03-19 06:49] LABS: ALBUMIN 2.5 G/DL (3.4-5.0); ANION GAP 3 (8-16); BLOOD UREA NITROGEN 19 MG/DL (7-18); BUN/CREATININE RATIO 51.4 (6.6-38.0); CALCIUM 8.8 MG/DL (8.5-10.1); CHLORIDE 100 MMOL/L (99-107); CREATININE 0.37 MG/DL (0.40-0.90); GLUCOSE 79 MG/DL (70-104); MAGNESIUM 1.5 MG/DL (1.5-2.4); PHOSPHORUS 3.5 MG/DL (2.3-4.5); POTASSIUM 4.1 MMOL/L (3.5-5.1); SODIUM 138 MMOL/L (135-145); VALPROATE 66 UG/ML (50-100); eGFR > 90 ML/MIN
[2019-03-19 07:16] LABS: ANISOCYTOSIS 3+; PLATELET ESTIMATE NORMAL
[2019-03-19] MEDS: aripiprazole 5mg tablet PO SCH (08:42)
[2019-03-19] MEDS: fluvoxamine 25 MG tablet PO SCH ×2 (08:42→20:00)
[2019-03-19] MEDS: lactobacillus rhamnosus 10,000 MMU CELLS/CAPSULE PO SCH ×2 (08:42→20:00)
[2019-03-19] MEDS: ferrous sulfate 325mg tablet PO SCH ×2 (08:43→20:00)
[2019-03-19] MEDS: levoTHYROXINE 25mcg tablet PO SCH (08:43)
[2019-03-19] MEDS: metoprolol succinate 25mg (24-HOUR) SR. Tablet PO SCH (08:43)
[2019-03-19] MEDS: pyridoxine 50mg tablet PO SCH (08:43)
[2019-03-19] MEDS: valproate sod 250mg/5ml UD oral syrup PO SCH ×2 (08:44→21:15)
[2019-03-19] MEDS: docusate sodium 100mg/10ml UD cup PO SCH ×2 (08:44→20:00)
[2019-03-19 11:00] VITALS: BP 102/81
[2019-03-19] MEDS: lactulose 20gm/30ml cup PO SCH ×4 (12:01→23:04)
--- NOTE | 2019-03-19 15:46 | NUR ---
Attempted to walk patient, however, pt became short of breath and showed signs of severe weakness upon standing. With 2 person assist, transferred pt to bedside chair. Pt SPO2 at 90% on 1L of O2 NC. Will continue to monitor.
[2019-03-19 18:00] VITALS: BP 121/69
[2019-03-19] MEDS ORDERED: quetiapine 100mg tablet PO SCH (21:00)
[2019-03-19] MEDS: polyethylene glycol 3350 17gm powd pack PO SCH (21:08)
[2019-03-19] MEDS: proCHLORperazine 10 MG/2 ml inj IV PRN (21:15)
[2019-03-19 22:00] VITALS: BP 111/91
[2019-03-20 03:00] VITALS: BP 98/46
[2019-03-20] MEDS: ipratropium 0.5 MG/2.5ML nebule IH SCH ×4 (03:14→19:51)
[2019-03-20] MEDS: levalbuterol 0.63mg/3ml nebule IH SCH ×4 (03:14→19:51)
[2019-03-20] MEDS: lactulose 20gm/30ml cup PO SCH ×5 (03:41→20:00)
[2019-03-20 06:04] LABS: BASOPHILS % (AUTO) 0.4 % (0-1); EOSINOPHILS # (AUTO) 0.3 X10'3 (0-0.9); EOSINOPHILS % (AUTO) 4.6 % (0-6); HEMOGLOBIN 11.3 g/dl (12.0-16.0); LYMPHOCYTES # (AUTO) 3.6 X10'3 (1.1-4.8); LYMPHOCYTES % (AUTO) 53.4 % (21-51); MEAN CORPUSCULAR HEMOGLOBIN 32.2 PG (27.0-31.0); MEAN CORPUSCULAR HGB CONC 32.4 g/dL (33.0-36.5); MEAN CORPUSCULAR VOLUME 99.4 FL (78-98); MEAN PLATELET VOLUME 8.6 FL (7.4-10.4); MONOCYTES # (AUTO) 0.7 X10'3 (0-0.9); MONOCYTES % (AUTO) 9.5 % (2-12); NEUTROPHILS # (AUTO) 2.2 X10'3 (1.8-7.7); NEUTROPHILS % (AUTO) 32.1 % (42-75); PLATELET COUNT 182 X10'3 (140-440); RED BLOOD COUNT 3.52 X10'6 (4.20-5.60); RED CELL DISTRIBUTION WIDTH 20.5 % (11.5-14.5); WHITE BLOOD COUNT 6.8 X10'3 (4.5-11.0)
[2019-03-20 06:21] LABS: ALANINE AMINOTRANSFERASE 14 U/L (12-78); ALBUMIN 2.6 G/DL (3.4-5.0); ALBUMIN/GLOBULIN RATIO 0.6 (1.1-1.5); ALKALINE PHOSPHATASE 91 IU/L (46-116); ANION GAP 2 (8-16); ASPARTATE AMINO TRANSFERASE 16 U/L (10-37); BILIRUBIN,TOTAL 0.3 MG/DL (0.1-1.0); BLOOD UREA NITROGEN 15 MG/DL (7-18); BUN/CREATININE RATIO 28.8 (6.6-38.0); CALCIUM 8.7 MG/DL (8.5-10.1); CHLORIDE 100 MMOL/L (99-107); CREATININE 0.52 MG/DL (0.40-0.90); GLUCOSE 86 MG/DL (70-104); MAGNESIUM 1.6 MG/DL (1.5-2.4); PHOSPHORUS 3.6 MG/DL (2.3-4.5); SODIUM 138 MMOL/L (135-145); TOTAL CARBON DIOXIDE 36.5 MMOL/L (24-32); TOTAL PROTEIN 7.3 G/DL (6.4-8.2); eGFR > 90 ML/MIN
--- NOTE | 2019-03-20 06:30 | NUR ---
Patient in room PCU 3022. I have received report from Ashley STAPLES and had the opportunity to ask questions and assume patient care.
[2019-03-20 06:55] LABS: ANISOCYTOSIS 3+; PLATELET ESTIMATE NORMAL; TOTAL CELLS COUNTED 100
[2019-03-20 07:00] VITALS: BP 92/56
[2019-03-20] MEDS: lactobacillus rhamnosus 10,000 MMU CELLS/CAPSULE PO SCH ×2 (09:10→21:28)
[2019-03-20] MEDS: fluvoxamine 25 MG tablet PO SCH ×2 (09:10→21:29)
[2019-03-20] MEDS: aripiprazole 5mg tablet PO SCH (09:11)
[2019-03-20] MEDS: pyridoxine 50mg tablet PO SCH (09:12)
[2019-03-20] MEDS: levoTHYROXINE 25mcg tablet PO SCH (09:12)
[2019-03-20] MEDS: ferrous sulfate 325mg tablet PO SCH ×2 (09:12→21:28)
[2019-03-20] MEDS: pantoprazole 40mg Tablet.DR PO SCH ×2 (09:12→16:40)
[2019-03-20] MEDS: docusate sodium 100mg/10ml UD cup PO SCH ×2 (09:13→20:00)
[2019-03-20] MEDS: valproate sod 250mg/5ml UD oral syrup PO SCH ×2 (09:13→21:30)
[2019-03-20] MEDS: metoprolol succinate 25mg (24-HOUR) SR. Tablet PO SCH (09:14)
[2019-03-20] MEDS ORDERED: lactulose 20gm/30ml cup PO PRN (09:45)
[2019-03-20 11:00] VITALS: BP 114/58
--- NOTE | 2019-03-20 11:17 | NUR ---
Reassessment: No significant changes in PO intake, pt continues with fluctuating PO intake overall 75-100% meeting nutrient needs. Wt fluctuates, currently stable with admit wt. Pt has been started on Lactulose d/t elevated NH3 per MD notes. CM/SS continues working on placement. LBM 03/19. Will continue to follow. Recommend: 1. Continue pureed food with nectar thick liquids per [employer] recs 2. Double proteins TID 3. Routine bowel care 4. weekly wts Addendum: 03/20/19 at [address] Amended: Links added.
[2019-03-20] MEDS: acetaminophen 325mg/10.15ml oral unit dose solution PO PRN (14:03)
--- NOTE | 2019-03-20 14:17 | NUR ---
PAGER ID: [phone] MESSAGE: [phone] [place] Pt complaining of headache. Pt stated " I get a headache like this before a seizure. Magui like an aura." Please call, Sophie #[phone]
[2019-03-20 15:00] VITALS: BP 114/58
--- NOTE | 2019-03-20 18:20 | NUR ---
Problems reprioritized. Patient report given, questions answered & plan of care reviewed with Thao STAPLES.
[2019-03-20 19:00] VITALS: BP 93/55
[2019-03-20] MEDS: polyethylene glycol 3350 17gm powd pack PO SCH (21:00)
[2019-03-20] MEDS: quetiapine 100mg tablet PO SCH (21:29)
[2019-03-20 22:00] VITALS: BP 105/62
[2019-03-21 02:00] VITALS: BP 115/63
[2019-03-21] MEDS: ipratropium 0.5 MG/2.5ML nebule IH SCH ×4 (03:00→20:00)
[2019-03-21] MEDS: levalbuterol 0.63mg/3ml nebule IH SCH ×4 (03:00→20:00)
[2019-03-21] MEDS: lactulose 20gm/30ml cup PO SCH ×6 (04:00→21:18)
--- NOTE | 2019-03-21 06:11 | NUR ---
Problems reprioritized. Patient report given, questions answered & plan of care reviewed with AM shift nurse Sophie STAPLES. Addendum: 03/21/19 at 0612 by Thao Gan RN Amended: Links added.
--- NOTE | 2019-03-21 06:30 | NUR ---
Patient in room PCU 3022. I have received report from Thao STAPLES and had the opportunity to ask questions and assume patient care.
[2019-03-21 06:37] LABS: ANION GAP 5 (8-16); BLOOD UREA NITROGEN 10 MG/DL (7-18); BUN/CREATININE RATIO 22.7 (6.6-38.0); CHLORIDE 98 MMOL/L (99-107); CREATININE 0.44 MG/DL (0.40-0.90); GLUCOSE 83 MG/DL (70-104); SODIUM 136 MMOL/L (135-145); TOTAL CARBON DIOXIDE 33.5 MMOL/L (24-32)
[2019-03-21 06:38] LABS: ALANINE AMINOTRANSFERASE 13 U/L (12-78); ALBUMIN 2.5 G/DL (3.4-5.0); ALBUMIN/GLOBULIN RATIO 0.6 (1.1-1.5); ALKALINE PHOSPHATASE 83 IU/L (46-116); ASPARTATE AMINO TRANSFERASE 21 U/L (10-37); BILIRUBIN,TOTAL 0.2 MG/DL (0.1-1.0); CALCIUM 8.6 MG/DL (8.5-10.1); MAGNESIUM 1.5 MG/DL (1.5-2.4); PHOSPHORUS 3.5 MG/DL (2.3-4.5); POTASSIUM 3.9 MMOL/L (3.5-5.1); eGFR > 90 ML/MIN
[2019-03-21 07:00] VITALS: BP 103/57
[2019-03-21 07:21] LABS: BASOPHILS # (AUTO) 0.1 X10'3 (0-0.2); BASOPHILS % (AUTO) 1.4 % (0-1); EOSINOPHILS # (AUTO) 0.4 X10'3 (0-0.9); EOSINOPHILS % (AUTO) 6.1 % (0-6); HEMATOCRIT 32.6 % (35.0-45.0); HEMOGLOBIN 10.7 g/dl (12.0-16.0); LYMPHOCYTES # (AUTO) 2.9 X10'3 (1.1-4.8); LYMPHOCYTES % (AUTO) 48.9 % (21-51); MEAN CORPUSCULAR HEMOGLOBIN 32.5 PG (27.0-31.0); MEAN CORPUSCULAR HGB CONC 32.9 g/dL (33.0-36.5); MEAN CORPUSCULAR VOLUME 98.8 FL (78-98); MEAN PLATELET VOLUME 8.8 FL (7.4-10.4); MONOCYTES # (AUTO) 0.6 X10'3 (0-0.9); MONOCYTES % (AUTO) 9.5 % (2-12); NEUTROPHILS % (AUTO) 34.1 % (42-75); PLATELET COUNT 190 X10'3 (140-440); RED CELL DISTRIBUTION WIDTH 20.1 % (11.5-14.5)
[2019-03-21] MEDS: lactobacillus rhamnosus 10,000 MMU CELLS/CAPSULE PO SCH ×2 (07:54→21:14)
[2019-03-21] MEDS: pantoprazole 40mg Tablet.DR PO SCH ×2 (07:54→16:59)
[2019-03-21] MEDS: metoprolol succinate 25mg (24-HOUR) SR. Tablet PO SCH (07:54)
[2019-03-21] MEDS: fluvoxamine 25 MG tablet PO SCH ×2 (07:54→21:16)
[2019-03-21] MEDS: levoTHYROXINE 25mcg tablet PO SCH (07:55)
[2019-03-21] MEDS: aripiprazole 5mg tablet PO SCH (07:55)
[2019-03-21] MEDS: pyridoxine 50mg tablet PO SCH (07:55)
[2019-03-21] MEDS: ferrous sulfate 325mg tablet PO SCH ×2 (07:55→21:15)
[2019-03-21] MEDS: valproate sod 250mg/5ml UD oral syrup PO SCH ×2 (07:56→21:18)
[2019-03-21] MEDS: docusate sodium 100mg/10ml UD cup PO SCH ×2 (08:00→21:16)
[2019-03-21 11:00] VITALS: BP 104/59
[2019-03-21 15:00] VITALS: BP 118/66
--- NOTE | 2019-03-21 18:20 | NUR ---
Problems reprioritized. Patient report given, questions answered & plan of care reviewed with Pam STAPLES.
--- NOTE | 2019-03-21 18:28 | NUR ---
Patient in room PCU 3022. I have received report from JHOAN Barrios and had the opportunity to ask questions and assume patient care.
[2019-03-21] MEDS: quetiapine 100mg tablet PO SCH (21:15)
[2019-03-21] MEDS: polyethylene glycol 3350 17gm powd pack PO SCH (21:19)
[2019-03-21 23:00] VITALS: BP 131/61
[2019-03-22] VITALS (7 sets, daily range): BP systolic 103–128; BP diastolic 50–71
--- NOTE | 2019-03-22 02:54 | NUR ---
0000 SCHEDULED Lactulose missed
[2019-03-22] MEDS: lactulose 20gm/30ml cup PO SCH ×6 (03:30→21:45)
[2019-03-22] MEDS: ipratropium 0.5 MG/2.5ML nebule IH SCH ×4 (03:35→20:54)
[2019-03-22] MEDS: levalbuterol 0.63mg/3ml nebule IH SCH ×4 (03:35→20:53)
--- NOTE | 2019-03-22 06:17 | NUR ---
Problems reprioritized. Patient report given, questions answered & plan of care reviewed with JHOAN Wick .
[2019-03-22 06:27] LABS: BASOPHILS # (AUTO) 0.1 X10'3 (0-0.2); BASOPHILS % (AUTO) 1.2 % (0-1); EOSINOPHILS # (AUTO) 0.2 X10'3 (0-0.9); HEMATOCRIT 33.7 % (35.0-45.0); HEMOGLOBIN 11.1 g/dl (12.0-16.0); LYMPHOCYTES # (AUTO) 3.1 X10'3 (1.1-4.8); LYMPHOCYTES % (AUTO) 49.7 % (21-51); MEAN CORPUSCULAR HEMOGLOBIN 32.6 PG (27.0-31.0); MEAN CORPUSCULAR VOLUME 98.6 FL (78-98); MEAN PLATELET VOLUME 8.2 FL (7.4-10.4); MONOCYTES # (AUTO) 0.7 X10'3 (0-0.9); MONOCYTES % (AUTO) 10.7 % (2-12); NEUTROPHILS # (AUTO) 2.1 X10'3 (1.8-7.7); NEUTROPHILS % (AUTO) 34.4 % (42-75); PLATELET COUNT 200 X10'3 (140-440); RED BLOOD COUNT 3.42 X10'6 (4.20-5.60); RED CELL DISTRIBUTION WIDTH 19.8 % (11.5-14.5); WHITE BLOOD COUNT 6.1 X10'3 (4.5-11.0)
--- NOTE | 2019-03-22 06:30 | NUR ---
Patient in room PCU 3022. I have received report from Pam STAPLES and had the opportunity to ask questions and assume patient care.
[2019-03-22 06:34] LABS: ALANINE AMINOTRANSFERASE 13 U/L (12-78); ALBUMIN 2.6 G/DL (3.4-5.0); ALBUMIN/GLOBULIN RATIO 0.6 (1.1-1.5); ALKALINE PHOSPHATASE 88 IU/L (46-116); ANION GAP 1 (8-16); ASPARTATE AMINO TRANSFERASE 16 U/L (10-37); BILIRUBIN,TOTAL 0.2 MG/DL (0.1-1.0); BLOOD UREA NITROGEN 12 MG/DL (7-18); BUN/CREATININE RATIO 21.1 (6.6-38.0); CALCIUM 9.2 MG/DL (8.5-10.1); CHLORIDE 101 MMOL/L (99-107); CREATININE 0.57 MG/DL (0.40-0.90); GLUCOSE 89 MG/DL (70-104); MAGNESIUM 1.6 MG/DL (1.5-2.4); PHOSPHORUS 3.4 MG/DL (2.3-4.5); POTASSIUM 4.1 MMOL/L (3.5-5.1); SODIUM 138 MMOL/L (135-145); TOTAL PROTEIN 7.1 G/DL (6.4-8.2); eGFR > 90 ML/MIN
[2019-03-22] MEDS: docusate sodium 100mg/10ml UD cup PO SCH ×2 (08:00→20:00)
[2019-03-22] MEDS: aripiprazole 5mg tablet PO SCH (08:32)
[2019-03-22] MEDS: pantoprazole 40mg Tablet.DR PO SCH ×2 (08:32→16:57)
[2019-03-22] MEDS: lactobacillus rhamnosus 10,000 MMU CELLS/CAPSULE PO SCH ×2 (08:33→21:45)
[2019-03-22] MEDS: fluvoxamine 25 MG tablet PO SCH ×2 (08:33→21:47)
[2019-03-22] MEDS: levoTHYROXINE 25mcg tablet PO SCH (08:33)
[2019-03-22] MEDS: valproate sod 250mg/5ml UD oral syrup PO SCH ×2 (08:33→21:46)
[2019-03-22] MEDS: ferrous sulfate 325mg tablet PO SCH ×2 (08:33→21:46)
[2019-03-22] MEDS: metoprolol succinate 25mg (24-HOUR) SR. Tablet PO SCH (08:34)
[2019-03-22] MEDS: pyridoxine 50mg tablet PO SCH (08:34)
[2019-03-22] MEDS: acetaminophen 325mg/10.15ml oral unit dose solution PO PRN ×2 (11:04→22:00)
--- NOTE | 2019-03-22 15:16 | NUR ---
Rm 3022. Pt Tre changing rooms has not used BiPap in 4 days. Also extra Bipap is ready to be picked up in 3014A
--- NOTE | 2019-03-22 15:30 | NUR ---
Called report to Melanie STAPLES on Med/Surg unit. All patients belongings , medications and chart were obtained and deliv ered with the patient to room 344B. Patient was stable at transfer of care.
--- NOTE | 2019-03-22 15:51 | NUR ---
Patient arrived to floor. Sitter at bedside.
--- NOTE | 2019-03-22 18:27 | NUR ---
Problems reprioritized. Patient report given, questions answered & plan of care reviewed with JHOAN Salter.
--- NOTE | 2019-03-22 18:44 | NUR ---
Patient in room EMILY 344. I have received report from JHOAN Navarro and had the opportunity to ask questions and assume patient care. Addendum: 03/22/19 at 1847 by Richard Guy RN Amended: Links added.
--- NOTE | 2019-03-22 18:48 | NUR ---
Patient in room EMILY 344. I have received report from JHOAN Navarro and had the opportunity to ask questions and assume patient care. Addendum: 03/22/19 at 1849 by Richard Guy RN Amended: Links added.
[2019-03-22] MEDS: polyethylene glycol 3350 17gm powd pack PO SCH ×2 (21:00→21:44)
--- NOTE | 2019-03-22 21:11 | NUR ---
multiple medications missing. waiting for meds form transferring unit. Addendum: 03/22/19 at 2 by Richard Guy RN Amended: Links added.
[2019-03-22] MEDS: quetiapine 100mg tablet PO SCH (21:47)
[2019-03-23] MEDS: polyethylene glycol 3350 17gm powd pack PO SCH (00:18)
[2019-03-23] MEDS: levalbuterol 0.63mg/3ml nebule IH SCH ×4 (03:00→20:14)
[2019-03-23] MEDS: ipratropium 0.5 MG/2.5ML nebule IH SCH ×4 (03:00→20:14)
[2019-03-23] MEDS: lactulose 20gm/30ml cup PO SCH ×6 (04:00→21:26)
[2019-03-23 05:05] LABS: BASOPHILS # (AUTO) 0.1 X10'3 (0-0.2); BASOPHILS % (AUTO) 1.1 % (0-1); EOSINOPHILS # (AUTO) 0.2 X10'3 (0-0.9); HEMATOCRIT 33.3 % (35.0-45.0); HEMOGLOBIN 10.8 g/dl (12.0-16.0); LYMPHOCYTES % (AUTO) 47.7 % (21-51); MEAN CORPUSCULAR HEMOGLOBIN 32.5 PG (27.0-31.0); MEAN CORPUSCULAR HGB CONC 32.5 g/dL (33.0-36.5); MEAN CORPUSCULAR VOLUME 99.8 FL (78-98); MEAN PLATELET VOLUME 8.5 FL (7.4-10.4); MONOCYTES # (AUTO) 0.6 X10'3 (0-0.9); MONOCYTES % (AUTO) 9.9 % (2-12); NEUTROPHILS # (AUTO) 2.4 X10'3 (1.8-7.7); NEUTROPHILS % (AUTO) 38.3 % (42-75); PLATELET COUNT 207 X10'3 (140-440); RED BLOOD COUNT 3.33 X10'6 (4.20-5.60); WHITE BLOOD COUNT 6.2 X10'3 (4.5-11.0)
[2019-03-23 05:24] LABS: ALANINE AMINOTRANSFERASE 15 U/L (12-78); ALBUMIN 2.5 G/DL (3.4-5.0); ALBUMIN/GLOBULIN RATIO 0.6 (1.1-1.5); ALKALINE PHOSPHATASE 81 IU/L (46-116); ANION GAP 3 (8-16); ASPARTATE AMINO TRANSFERASE 14 U/L (10-37); BILIRUBIN,TOTAL 0.2 MG/DL (0.1-1.0); BLOOD UREA NITROGEN 16 MG/DL (7-18); BUN/CREATININE RATIO 26.2 (6.6-38.0); CALCIUM 8.6 MG/DL (8.5-10.1); CHLORIDE 103 MMOL/L (99-107); CREATININE 0.61 MG/DL (0.40-0.90); GLUCOSE 85 MG/DL (70-104); MAGNESIUM 1.5 MG/DL (1.5-2.4); PHOSPHORUS 3.4 MG/DL (2.3-4.5); POTASSIUM 3.8 MMOL/L (3.5-5.1); SODIUM 140 MMOL/L (135-145); TOTAL CARBON DIOXIDE 34.1 MMOL/L (24-32); TOTAL PROTEIN 6.9 G/DL (6.4-8.2); eGFR > 90 ML/MIN
--- NOTE | 2019-03-23 06:26 | NUR ---
Problems reprioritized. Patient report given, questions answered & plan of care reviewed with JHOAN VIDES. Addendum: 03/23/19 at 0626 by Richard Guy RN Amended: Links added.
[2019-03-23 07:00] VITALS: BP 113/62
[2019-03-23 07:27] LABS: ANISOCYTOSIS 2+; PLATELET ESTIMATE NORMAL
[2019-03-23 07:28] LABS: HYPOCHROMASIA 1+
[2019-03-23] MEDS: levoTHYROXINE 25mcg tablet PO SCH (09:12)
[2019-03-23] MEDS: metoprolol succinate 25mg (24-HOUR) SR. Tablet PO SCH (09:12)
[2019-03-23] MEDS: pyridoxine 50mg tablet PO SCH (09:12)
[2019-03-23] MEDS: lactobacillus rhamnosus 10,000 MMU CELLS/CAPSULE PO SCH ×2 (09:12→21:26)
[2019-03-23] MEDS: pantoprazole 40mg Tablet.DR PO SCH ×2 (09:12→17:21)
[2019-03-23] MEDS: ferrous sulfate 325mg tablet PO SCH ×2 (09:12→21:26)
[2019-03-23] MEDS: aripiprazole 5mg tablet PO SCH (09:13)
[2019-03-23] MEDS: docusate sodium 100mg/10ml UD cup PO SCH ×2 (09:13→20:00)
[2019-03-23] MEDS: fluvoxamine 25 MG tablet PO SCH ×2 (10:45→21:26)
[2019-03-23] MEDS: valproate sod 250mg/5ml UD oral syrup PO SCH ×2 (10:45→21:25)
[2019-03-23 11:00] VITALS: BP 113/66
--- NOTE | 2019-03-23 15:30 | NUR ---
pt. 95% after tx. left on RA with sitter. sitter will reassess spo2 in 1 hour. Addendum: 03/23/19 at 1531 by Christopher Velez RT Amended: Links added.
--- NOTE | 2019-03-23 18:30 | NUR ---
Patient in room EMILY 344. I have received report from JHOAN Johns and had the opportunity to ask questions and assume patient care. Addendum: 03/23/19 at 1949 by Richard Guy RN Amended: Links added.
[2019-03-23 19:30] VITALS: BP 110/60
[2019-03-23] MEDS: quetiapine 100mg tablet PO SCH (21:26)
[2019-03-23 23:32] VITALS: BP 114/62
[2019-03-24] MEDS: lactulose 20gm/30ml cup PO SCH ×6 (00:51→19:35)
[2019-03-24] MEDS: levalbuterol 0.63mg/3ml nebule IH SCH ×4 (02:45→21:12)
[2019-03-24] MEDS: ipratropium 0.5 MG/2.5ML nebule IH SCH ×4 (02:45→21:12)
[2019-03-24 05:15] LABS: BASOPHILS % (AUTO) 0.7 % (0-1); EOSINOPHILS # (AUTO) 0.2 X10'3 (0-0.9); EOSINOPHILS % (AUTO) 2.4 % (0-6); HEMATOCRIT 34.8 % (35.0-45.0); HEMOGLOBIN 11.4 g/dl (12.0-16.0); LYMPHOCYTES # (AUTO) 3.1 X10'3 (1.1-4.8); LYMPHOCYTES % (AUTO) 49.6 % (21-51); MEAN CORPUSCULAR HEMOGLOBIN 32.9 PG (27.0-31.0); MEAN CORPUSCULAR HGB CONC 32.7 g/dL (33.0-36.5); MEAN CORPUSCULAR VOLUME 100.6 FL (78-98); MEAN PLATELET VOLUME 8.6 FL (7.4-10.4); MONOCYTES # (AUTO) 0.6 X10'3 (0-0.9); NEUTROPHILS # (AUTO) 2.3 X10'3 (1.8-7.7); NEUTROPHILS % (AUTO) 37.3 % (42-75); PLATELET COUNT 232 X10'3 (140-440); RED BLOOD COUNT 3.46 X10'6 (4.20-5.60); RED CELL DISTRIBUTION WIDTH 19.8 % (11.5-14.5); WHITE BLOOD COUNT 6.3 X10'3 (4.5-11.0)
[2019-03-24 05:28] LABS: ALANINE AMINOTRANSFERASE 13 U/L (12-78); ALBUMIN 2.7 G/DL (3.4-5.0); ALBUMIN/GLOBULIN RATIO 0.6 (1.1-1.5); ALKALINE PHOSPHATASE 89 IU/L (46-116); ANION GAP 1 (8-16); ASPARTATE AMINO TRANSFERASE 14 U/L (10-37); BILIRUBIN,TOTAL 0.2 MG/DL (0.1-1.0); BLOOD UREA NITROGEN 16 MG/DL (7-18); BUN/CREATININE RATIO 23.5 (6.6-38.0); CALCIUM 9.4 MG/DL (8.5-10.1); CHLORIDE 105 MMOL/L (99-107); CREATININE 0.68 MG/DL (0.40-0.90); GLUCOSE 90 MG/DL (70-104); MAGNESIUM 1.6 MG/DL (1.5-2.4); PHOSPHORUS 3.4 MG/DL (2.3-4.5); POTASSIUM 3.8 MMOL/L (3.5-5.1); SODIUM 141 MMOL/L (135-145); TOTAL PROTEIN 7.5 G/DL (6.4-8.2); eGFR 85 ML/MIN
[2019-03-24 06:26] LABS: ANISOCYTOSIS 2+; PLATELET ESTIMATE NORMAL
--- NOTE | 2019-03-24 06:50 | NUR ---
Problems reprioritized. Patient report given, questions answered & plan of care reviewed with JHOAN Johns. Addendum: 03/24/19 at 0650 by Richard Guy RN Amended: Links added.
[2019-03-24 07:00] VITALS: BP 103/53
[2019-03-24] MEDS: docusate sodium 100mg/10ml UD cup PO SCH ×2 (08:00→19:34)
[2019-03-24] MEDS: metoprolol succinate 25mg (24-HOUR) SR. Tablet PO SCH (08:28)
[2019-03-24] MEDS: pyridoxine 50mg tablet PO SCH (08:28)
[2019-03-24] MEDS: fluvoxamine 25 MG tablet PO SCH ×2 (08:28→21:16)
[2019-03-24] MEDS: lactobacillus rhamnosus 10,000 MMU CELLS/CAPSULE PO SCH ×2 (08:28→19:35)
[2019-03-24] MEDS: levoTHYROXINE 25mcg tablet PO SCH (08:28)
[2019-03-24] MEDS: pantoprazole 40mg Tablet.DR PO SCH ×2 (08:29→16:59)
[2019-03-24] MEDS: aripiprazole 5mg tablet PO SCH (08:29)
[2019-03-24] MEDS: ferrous sulfate 325mg tablet PO SCH ×2 (08:29→19:35)
[2019-03-24] MEDS: valproate sod 250mg/5ml UD oral syrup PO SCH ×2 (08:29→21:16)
[2019-03-24 12:00] VITALS: BP 105/64
--- NOTE | 2019-03-24 18:07 | NUR ---
Received report from JHOAN Johns. Patient is awake and alert on room air, in no apparent distress. Sitting up in chair having meal. Call light and items of frequent use within reach. Will continue to monitor.
[2019-03-24 20:00] VITALS: BP 135/68
[2019-03-24] MEDS: polyethylene glycol 3350 17gm powd pack PO SCH (21:00)
[2019-03-24] MEDS: quetiapine 100mg tablet PO SCH (21:16)
[2019-03-25] VITALS: BP 144/57
[2019-03-25] MEDS: lactulose 20gm/30ml cup PO SCH ×7 (00:25→23:55)
[2019-03-25] MEDS: levalbuterol 0.63mg/3ml nebule IH SCH ×4 (03:00→20:38)
[2019-03-25] MEDS: ipratropium 0.5 MG/2.5ML nebule IH SCH ×4 (03:00→20:38)
--- NOTE | 2019-03-25 06:15 | NUR ---
Problems reprioritized. Patient report given, questions answered & plan of care reviewed with JHOAN Johns.
[2019-03-25 07:00] VITALS: BP 104/57
[2019-03-25] MEDS: docusate sodium 100mg/10ml UD cup PO SCH ×2 (08:00→20:16)
[2019-03-25] MEDS: pyridoxine 50mg tablet PO SCH (08:42)
[2019-03-25] MEDS: aripiprazole 5mg tablet PO SCH (08:42)
[2019-03-25] MEDS: pantoprazole 40mg Tablet.DR PO SCH ×2 (08:42→17:43)
[2019-03-25] MEDS: levoTHYROXINE 25mcg tablet PO SCH (08:42)
[2019-03-25] MEDS: fluvoxamine 25 MG tablet PO SCH ×2 (08:43→20:17)
[2019-03-25] MEDS: ferrous sulfate 325mg tablet PO SCH ×2 (08:43→20:15)
[2019-03-25] MEDS: valproate sod 250mg/5ml UD oral syrup PO SCH ×2 (08:43→20:16)
[2019-03-25] MEDS: metoprolol succinate 25mg (24-HOUR) SR. Tablet PO SCH (08:43)
[2019-03-25] MEDS: lactobacillus rhamnosus 10,000 MMU CELLS/CAPSULE PO SCH ×2 (08:43→20:15)
--- NOTE | 2019-03-25 09:33 | NUR ---
Reassessment: Pt continues meeting nutrient needs with documented 75-100% PO intake. No new weights. Pt continues on Lactulose d/t elevated NH3. LBM 03/23. Pt continues awaiting placement. Will continue to follow. Recommend: 1. Continue pureed food with nectar thick liquids per [employer] recs 2. Double proteins TID 3. Routine bowel care 4. weekly wts Addendum: 03/25/19 at [address] Amended: Links added.
[2019-03-25 12:00] VITALS: BP 110/61
[2019-03-25 18:00] VITALS: BP 113/63
--- NOTE | 2019-03-25 18:13 | NUR ---
Received report from JHOAN Johns. Patient is awake and alert on room air, in no apparent distress. Sitting up in chair having meal. Call light and items of frequent use within reach. Sitter at bedside. Will continue to monitor.
[2019-03-25] MEDS: quetiapine 100mg tablet PO SCH (20:15)
[2019-03-25] MEDS: polyethylene glycol 3350 17gm powd pack PO SCH (20:17)
[2019-03-26] VITALS: BP 129/67
[2019-03-26] MEDS: levalbuterol 0.63mg/3ml nebule IH SCH ×4 (02:53→20:29)
[2019-03-26] MEDS: ipratropium 0.5 MG/2.5ML nebule IH SCH ×4 (02:54→20:29)
[2019-03-26] MEDS: lactulose 20gm/30ml cup PO SCH ×4 (04:00→20:01)
--- NOTE | 2019-03-26 06:10 | NUR ---
Problems reprioritized. Patient report given, questions answered & plan of care reviewed with JHOAN Renae.
[2019-03-26] MEDS: docusate sodium 100mg/10ml UD cup PO SCH ×2 (07:20→20:00)
[2019-03-26 07:38] VITALS: BP 113/67
[2019-03-26] MEDS: valproate sod 250mg/5ml UD oral syrup PO SCH ×2 (08:47→20:01)
[2019-03-26] MEDS: pyridoxine 50mg tablet PO SCH (08:49)
[2019-03-26] MEDS: lactobacillus rhamnosus 10,000 MMU CELLS/CAPSULE PO SCH ×2 (08:49→20:00)
[2019-03-26] MEDS: ferrous sulfate 325mg tablet PO SCH ×2 (08:49→20:00)
[2019-03-26] MEDS: levoTHYROXINE 25mcg tablet PO SCH (08:50)
[2019-03-26] MEDS: pantoprazole 40mg Tablet.DR PO SCH ×2 (08:50→17:18)
[2019-03-26] MEDS: aripiprazole 5mg tablet PO SCH (08:51)
[2019-03-26] MEDS: metoprolol succinate 25mg (24-HOUR) SR. Tablet PO SCH (08:51)
[2019-03-26] MEDS: fluvoxamine 25 MG tablet PO SCH ×2 (08:52→20:00)
[2019-03-26 11:55] VITALS: BP 109/60
--- NOTE | 2019-03-26 18:00 | NUR ---
Patient in room EMILY 341. I have received report from Batool STAPLES and had the opportunity to ask questions and assume patient care.
--- NOTE | 2019-03-26 18:49 | NUR ---
Problems reprioritized. Patient report given, questions answered & plan of care reviewed with ROYA STAPLES.
[2019-03-26 20:00] VITALS: BP_SYST 109; BP_SYST 153; BP_DIAS 41; BP_DIAS 60
[2019-03-26] MEDS: quetiapine 100mg tablet PO SCH (20:00)
[2019-03-26] MEDS: polyethylene glycol 3350 17gm powd pack PO SCH (20:20)
[2019-03-27] VITALS: BP 123/64
[2019-03-27] MEDS: levalbuterol 0.63mg/3ml nebule IH SCH ×4 (02:40→20:00)
[2019-03-27] MEDS: ipratropium 0.5 MG/2.5ML nebule IH SCH ×4 (02:40→20:00)
--- NOTE | 2019-03-27 06:17 | NUR ---
Problems reprioritized. Patient report given, questions answered & plan of care reviewed with Priscila STAPLES.
[2019-03-27] MEDS: docusate sodium 100mg/10ml UD cup PO SCH ×2 (06:55→20:00)
[2019-03-27 07:00] VITALS: BP 98/62
[2019-03-27] MEDS: metoprolol succinate 25mg (24-HOUR) SR. Tablet PO SCH (08:00)
[2019-03-27] MEDS: pyridoxine 50mg tablet PO SCH (08:00)
[2019-03-27] MEDS: lactobacillus rhamnosus 10,000 MMU CELLS/CAPSULE PO SCH ×2 (09:31→20:30)
[2019-03-27] MEDS: lactulose 20gm/30ml cup PO SCH ×3 (09:31→20:30)
[2019-03-27] MEDS: ferrous sulfate 325mg tablet PO SCH ×2 (09:32→20:30)
[2019-03-27] MEDS: fluvoxamine 25 MG tablet PO SCH ×2 (09:32→20:30)
[2019-03-27] MEDS: pantoprazole 40mg Tablet.DR PO SCH ×2 (09:32→20:34)
[2019-03-27] MEDS: valproate sod 250mg/5ml UD oral syrup PO SCH ×2 (09:32→20:30)
[2019-03-27] MEDS: levoTHYROXINE 25mcg tablet PO SCH (09:32)
[2019-03-27] MEDS: aripiprazole 5mg tablet PO SCH (09:32)
--- NOTE | 2019-03-27 10:53 | NUR ---
PER HOSPITALIST. SITTER ORDER DC'D. PT IS RESTING AND HAS A TABS ALARM ON
[2019-03-27 11:00] VITALS: BP 102/43
[2019-03-27 18:00] VITALS: BP 132/76
--- NOTE | 2019-03-27 18:20 | NUR ---
Patient in room EMILY 358. I have received report from Priscila STAPLES and had the opportunity to ask questions and assume patient care.
[2019-03-27] MEDS: quetiapine 100mg tablet PO SCH (20:30)
[2019-03-27] MEDS: polyethylene glycol 3350 17gm powd pack PO SCH (20:46)
[2019-03-28] VITALS: BP 124/70
[2019-03-28] MEDS: levalbuterol 0.63mg/3ml nebule IH SCH ×4 (03:17→19:45)
[2019-03-28] MEDS: ipratropium 0.5 MG/2.5ML nebule IH SCH ×4 (03:17→19:45)
--- NOTE | 2019-03-28 06:28 | NUR ---
Problems reprioritized. Patient report given, questions answered & plan of care reviewed with Priscila STAPLES.
[2019-03-28 07:00] VITALS: BP 110/68
[2019-03-28] MEDS: docusate sodium 100mg/10ml UD cup PO SCH ×2 (07:15→20:00)
[2019-03-28] MEDS: pantoprazole 40mg Tablet.DR PO SCH ×2 (07:30→17:33)
[2019-03-28] MEDS: valproate sod 250mg/5ml UD oral syrup PO SCH ×2 (08:00→21:07)
[2019-03-28] MEDS: pyridoxine 50mg tablet PO SCH (08:59)
[2019-03-28] MEDS: lactobacillus rhamnosus 10,000 MMU CELLS/CAPSULE PO SCH ×2 (08:59→21:07)
[2019-03-28] MEDS: aripiprazole 5mg tablet PO SCH (08:59)
[2019-03-28] MEDS: metoprolol succinate 25mg (24-HOUR) SR. Tablet PO SCH (08:59)
[2019-03-28] MEDS: fluvoxamine 25 MG tablet PO SCH ×2 (08:59→21:06)
[2019-03-28] MEDS: levoTHYROXINE 25mcg tablet PO SCH (08:59)
[2019-03-28] MEDS: lactulose 20gm/30ml cup PO SCH ×3 (08:59→21:07)
[2019-03-28] MEDS: ferrous sulfate 325mg tablet PO SCH ×2 (08:59→21:07)
[2019-03-28 11:00] VITALS: BP 108/65
--- NOTE | 2019-03-28 17:48 | NUR ---
Problems reprioritized. Patient report given, questions answered & plan of care reviewed with ROYA STAPLES.
[2019-03-28 18:00] VITALS: BP 113/75
[2019-03-28] MEDS: polyethylene glycol 3350 17gm powd pack PO SCH (21:00)
[2019-03-28] MEDS: quetiapine 100mg tablet PO SCH (21:07)
[2019-03-29] VITALS: BP 105/58
[2019-03-29] MEDS: levalbuterol 0.63mg/3ml nebule IH SCH ×4 (03:16→20:11)
[2019-03-29] MEDS: ipratropium 0.5 MG/2.5ML nebule IH SCH ×4 (03:16→20:11)
[2019-03-29 06:03] LABS: BASOPHILS # (AUTO) 0.1 X10'3 (0-0.2); EOSINOPHILS # (AUTO) 0.1 X10'3 (0-0.9); EOSINOPHILS % (AUTO) 1.4 % (0-6); HEMATOCRIT 33.5 % (35.0-45.0); LYMPHOCYTES # (AUTO) 3.4 X10'3 (1.1-4.8); LYMPHOCYTES % (AUTO) 58.2 % (21-51); MEAN CORPUSCULAR HEMOGLOBIN 32.8 PG (27.0-31.0); MEAN CORPUSCULAR HGB CONC 32.9 g/dL (33.0-36.5); MEAN CORPUSCULAR VOLUME 99.7 FL (78-98); MEAN PLATELET VOLUME 8.7 FL (7.4-10.4); MONOCYTES # (AUTO) 0.6 X10'3 (0-0.9); MONOCYTES % (AUTO) 10.3 % (2-12); NEUTROPHILS # (AUTO) 1.7 X10'3 (1.8-7.7); NEUTROPHILS % (AUTO) 29.1 % (42-75); PLATELET COUNT 238 X10'3 (140-440); RED BLOOD COUNT 3.35 X10'6 (4.20-5.60); RED CELL DISTRIBUTION WIDTH 19.4 % (11.5-14.5); WHITE BLOOD COUNT 5.9 X10'3 (4.5-11.0)
--- NOTE | 2019-03-29 06:13 | NUR ---
Problems reprioritized. Patient report given, questions answered & plan of care reviewed with Arleen STAPLES.
[2019-03-29 06:32] LABS: ALANINE AMINOTRANSFERASE 17 U/L (12-78); ALBUMIN 2.4 G/DL (3.4-5.0); ALBUMIN/GLOBULIN RATIO 0.6 (1.1-1.5); ALKALINE PHOSPHATASE 73 IU/L (46-116); ANION GAP 4 (8-16); ASPARTATE AMINO TRANSFERASE 17 U/L (10-37); BILIRUBIN,TOTAL 0.2 MG/DL (0.1-1.0); BLOOD UREA NITROGEN 18 MG/DL (7-18); BUN/CREATININE RATIO 36.7 (6.6-38.0); CALCIUM 8.4 MG/DL (8.5-10.1); CHLORIDE 107 MMOL/L (99-107); CREATININE 0.49 MG/DL (0.40-0.90); GLUCOSE 80 MG/DL (70-104); SODIUM 145 MMOL/L (135-145); TOTAL CARBON DIOXIDE 33.7 MMOL/L (24-32); TOTAL PROTEIN 6.7 G/DL (6.4-8.2); eGFR > 90 ML/MIN
[2019-03-29 06:51] LABS: ANISOCYTOSIS 2+; PLATELET ESTIMATE NORMAL
[2019-03-29] MEDS: ferrous sulfate 325mg tablet PO SCH ×2 (07:38→19:15)
[2019-03-29] MEDS: levoTHYROXINE 25mcg tablet PO SCH (07:38)
[2019-03-29] MEDS: lactulose 20gm/30ml cup PO SCH ×3 (07:38→20:44)
[2019-03-29] MEDS: lactobacillus rhamnosus 10,000 MMU CELLS/CAPSULE PO SCH ×2 (07:38→19:15)
[2019-03-29] MEDS: fluvoxamine 25 MG tablet PO SCH ×2 (07:38→20:44)
[2019-03-29] MEDS: pantoprazole 40mg Tablet.DR PO SCH ×2 (07:38→17:30)
[2019-03-29] MEDS: docusate sodium 100mg/10ml UD cup PO SCH ×2 (07:38→19:15)
[2019-03-29] MEDS: pyridoxine 50mg tablet PO SCH (07:38)
[2019-03-29] MEDS: aripiprazole 5mg tablet PO SCH (07:39)
[2019-03-29 08:00] VITALS: BP 100/57
[2019-03-29] MEDS: metoprolol succinate 25mg (24-HOUR) SR. Tablet PO SCH (08:00)
[2019-03-29] MEDS ORDERED: potassium Cl 20 mEq SR tablet PO PRN (08:30)
[2019-03-29] MEDS: valproate sod 250mg/5ml UD oral syrup PO SCH ×2 (08:41→20:43)
[2019-03-29] MEDS: potassium Cl 20 mEq SR tablet PO PRN ×2 (08:42→19:15)
--- NOTE | 2019-03-29 09:20 | NUR ---
pt reports seeing 'bugs on the ceiling' and a 'woman in the bathroom'.
--- NOTE | 2019-03-29 10:00 | NUR ---
Patient appears to be hallucinating. Reports seeing a woman in the bathroom and bugs in room. Dr. Cao assessed patient and is aware. Switched patient bed to one with a bed alarm. Alarm on and audible. Will monitor.
[2019-03-29 11:30] VITALS: BP 104/54
--- NOTE | 2019-03-29 14:26 | NUR ---
Patient's K level this AM was 3.0. 40 mEq given this AM and has two more 40 mEq doses remaining per protocol. Patient refuses to take second dose. Will reattempt.
[2019-03-29 18:00] VITALS: BP 105/61
--- NOTE | 2019-03-29 18:14 | NUR ---
Received report from JHOAN Bacon. Patient is awake and alert on room air, in no apparent distress. Call light and items of frequent use within reach. Will continue to monitor.
[2019-03-29] MEDS: quetiapine 100mg tablet PO SCH (20:44)
[2019-03-29] MEDS: polyethylene glycol 3350 17gm powd pack PO SCH (20:44)
[2019-03-30] VITALS: BP 96/56
[2019-03-30] MEDS: levalbuterol 0.63mg/3ml nebule IH SCH ×4 (02:56→20:02)
[2019-03-30] MEDS: ipratropium 0.5 MG/2.5ML nebule IH SCH ×4 (02:56→20:02)
--- NOTE | 2019-03-30 06:39 | NUR ---
Problems reprioritized. Patient report given, questions answered & plan of care reviewed with JHOAN Navarro. Addendum: 03/30/19 at 0639 by Adriana Zaragoza RN Sarah STAPLES Problems reprioritized. Patient report given, questions answered & plan of care reviewed with JHOAN Nolen.
[2019-03-30 07:12] VITALS: BP 124/64
[2019-03-30] MEDS: levoTHYROXINE 25mcg tablet PO SCH (09:10)
[2019-03-30] MEDS: metoprolol succinate 25mg (24-HOUR) SR. Tablet PO SCH (09:11)
[2019-03-30] MEDS: pyridoxine 50mg tablet PO SCH (09:11)
[2019-03-30] MEDS: fluvoxamine 25 MG tablet PO SCH ×2 (09:12→20:11)
[2019-03-30] MEDS: aripiprazole 5mg tablet PO SCH (09:12)
[2019-03-30] MEDS: ferrous sulfate 325mg tablet PO SCH ×2 (09:13→20:11)
[2019-03-30] MEDS: pantoprazole 40mg Tablet.DR PO SCH ×2 (09:13→18:20)
[2019-03-30] MEDS: lactobacillus rhamnosus 10,000 MMU CELLS/CAPSULE PO SCH ×2 (09:14→20:11)
[2019-03-30] MEDS: lactulose 20gm/30ml cup PO SCH ×3 (09:14→20:10)
[2019-03-30] MEDS: docusate sodium 100mg/10ml UD cup PO SCH ×2 (09:14→20:10)
[2019-03-30] MEDS: valproate sod 250mg/5ml UD oral syrup PO SCH ×2 (09:14→20:10)
[2019-03-30 12:06] VITALS: BP 103/62
--- NOTE | 2019-03-30 12:23 | NUR ---
PAGER ID: [phone] MESSAGE: [phone] [place]ogo [place] Do you want a valproic level? Any labs at all for today? Tamanna STAPLES [phone]
--- NOTE | 2019-03-30 13:52 | NUR ---
reassessment: Pt PO decreased slightly 50-75% at this time but also having hallucinations per MD note. Likely effecting PO. [facility] 03/29. Still awaiting placement. Will continue to monitor. Recommend: 1. Continue pureed food with nectar thick liquids per [employer] recs 2. Double proteins TID 3. Routine bowel care 4. weekly wts Addendum: 03/30/19 at [address] Amended: Links added.
--- NOTE | 2019-03-30 18:17 | NUR ---
Received report from JHOAN Horn. Patient is awake and alert on room air, in no apparent distress. Sitting up having dinner. Call light and items of frequent use within reach. Will continue to monitor.
--- NOTE | 2019-03-30 18:39 | NUR ---
Gave report to Adriana STAPLES
[2019-03-30 20:00] VITALS: BP 130/71
[2019-03-30] MEDS: quetiapine 100mg tablet PO SCH (20:11)
[2019-03-30] MEDS: polyethylene glycol 3350 17gm powd pack PO SCH (20:12)
[2019-03-31] VITALS: BP 126/63
--- NOTE | 2019-03-31 00:03 | NUR ---
Patient had rectal prolapse. Applied KY jelly around it and carefully placed back into rectum. Patient denied any pain or discomfort throughout. Now resting comfortably. Will continue to monitor.
[2019-03-31] MEDS: levalbuterol 0.63mg/3ml nebule IH SCH ×4 (02:57→20:13)
[2019-03-31] MEDS: ipratropium 0.5 MG/2.5ML nebule IH SCH ×4 (02:57→20:12)
--- NOTE | 2019-03-31 06:06 | NUR ---
Problems reprioritized. Patient report given, questions answered & plan of care reviewed with JHOAN Nolen.
[2019-03-31 07:51] VITALS: BP 108/62
[2019-03-31] MEDS: fluvoxamine 25 MG tablet PO SCH ×2 (08:52→20:11)
[2019-03-31] MEDS: levoTHYROXINE 25mcg tablet PO SCH (08:52)
[2019-03-31] MEDS: pantoprazole 40mg Tablet.DR PO SCH ×2 (08:52→16:40)
[2019-03-31] MEDS: valproate sod 250mg/5ml UD oral syrup PO SCH ×2 (08:52→20:12)
[2019-03-31] MEDS: docusate sodium 100mg/10ml UD cup PO SCH ×2 (08:52→20:11)
[2019-03-31] MEDS: lactulose 20gm/30ml cup PO SCH ×3 (08:52→20:11)
[2019-03-31] MEDS: lactobacillus rhamnosus 10,000 MMU CELLS/CAPSULE PO SCH ×2 (08:52→20:11)
[2019-03-31] MEDS: aripiprazole 5mg tablet PO SCH (08:52)
[2019-03-31] MEDS: metoprolol succinate 25mg (24-HOUR) SR. Tablet PO SCH (08:53)
[2019-03-31] MEDS: ferrous sulfate 325mg tablet PO SCH ×2 (08:53→20:11)
[2019-03-31] MEDS: pyridoxine 50mg tablet PO SCH (08:53)
--- NOTE | 2019-03-31 09:44 | NUR ---
MD Cao aware of prolapsed rectum. No new orders at this time.
[2019-03-31 12:23] VITALS: BP 116/68
--- NOTE | 2019-03-31 18:36 | NUR ---
Gave report to Adriana STAPLES.
[2019-03-31 20:00] VITALS: BP 147/82
[2019-03-31] MEDS: quetiapine 100mg tablet PO SCH (20:11)
[2019-03-31] MEDS: polyethylene glycol 3350 17gm powd pack PO SCH (20:17)
[2019-04-01 00:21] VITALS: BP 132/66
[2019-04-01] MEDS: ipratropium 0.5 MG/2.5ML nebule IH SCH ×3 (02:16→20:23)
[2019-04-01] MEDS: levalbuterol 0.63mg/3ml nebule IH SCH ×3 (02:16→20:24)
--- NOTE | 2019-04-01 05:36 | NUR ---
Patient had rectal prolapse. Reduced it. Patient denied any pain or discomfort. Now sitting up, brushing teeth. Will continue to monitor.
--- NOTE | 2019-04-01 06:18 | NUR ---
Reported off to JHOAN Johns. Patient resting comfortably.
[2019-04-01 07:00] VITALS: BP 137/79
[2019-04-01] MEDS: aripiprazole 5mg tablet PO SCH (09:04)
[2019-04-01] MEDS: valproate sod 250mg/5ml UD oral syrup PO SCH ×2 (09:04→20:22)
[2019-04-01] MEDS: levoTHYROXINE 25mcg tablet PO SCH (09:05)
[2019-04-01] MEDS: fluvoxamine 25 MG tablet PO SCH ×2 (09:05→20:24)
[2019-04-01] MEDS: lactobacillus rhamnosus 10,000 MMU CELLS/CAPSULE PO SCH ×2 (09:05→20:23)
[2019-04-01] MEDS: metoprolol succinate 25mg (24-HOUR) SR. Tablet PO SCH (09:05)
[2019-04-01] MEDS: ferrous sulfate 325mg tablet PO SCH ×2 (09:05→20:23)
[2019-04-01] MEDS: pyridoxine 50mg tablet PO SCH (09:08)
[2019-04-01] MEDS: lactulose 20gm/30ml cup PO SCH ×3 (09:09→20:25)
[2019-04-01] MEDS: docusate sodium 100mg/10ml UD cup PO SCH ×2 (09:12→20:19)
[2019-04-01] MEDS: pantoprazole 40mg Tablet.DR PO SCH ×2 (09:16→17:59)
[2019-04-01 12:00] VITALS: BP 125/71
[2019-04-01 18:00] VITALS: BP 104/54
--- NOTE | 2019-04-01 18:25 | NUR ---
Patient in room EMILY 358. I have received report from JHOAN Johns and had the opportunity to ask questions and assume patient care.
[2019-04-01] MEDS ORDERED: magnesium Cl slow-release 64mg tablet PO PRN (19:50)
[2019-04-01] MEDS ORDERED: potassium Cl 20 mEq SR tablet PO PRN (19:50)
[2019-04-01] MEDS ORDERED: potassium CL 10mEq/100ml bag 100 ML IV PRN (19:50)
[2019-04-01] MEDS: quetiapine 100mg tablet PO SCH (20:23)
[2019-04-01] MEDS: potassium Cl 20 mEq SR tablet PO PRN (20:23)
[2019-04-01] MEDS: polyethylene glycol 3350 17gm powd pack PO SCH (20:24)
[2019-04-02] VITALS: BP 103/55
[2019-04-02] MEDS: potassium Cl 20 mEq SR tablet PO PRN (01:26)
[2019-04-02] MEDS: levalbuterol 0.63mg/3ml nebule IH SCH ×4 (03:00→20:20)
[2019-04-02] MEDS: ipratropium 0.5 MG/2.5ML nebule IH SCH ×4 (03:00→20:20)
--- NOTE | 2019-04-02 06:10 | NUR ---
Problems reprioritized. Patient report given, questions answered & plan of care reviewed with JHOAN Johns.
[2019-04-02 06:18] LABS: MAGNESIUM 1.6 MG/DL (1.5-2.4); POTASSIUM 4.1 MMOL/L (3.5-5.1)
[2019-04-02 07:00] VITALS: BP 112/62
[2019-04-02] MEDS: pyridoxine 50mg tablet PO SCH (09:45)
[2019-04-02] MEDS: valproate sod 250mg/5ml UD oral syrup PO SCH ×2 (09:45→21:36)
[2019-04-02] MEDS: lactobacillus rhamnosus 10,000 MMU CELLS/CAPSULE PO SCH ×2 (09:45→21:36)
[2019-04-02] MEDS: lactulose 20gm/30ml cup PO SCH ×3 (09:45→21:00)
[2019-04-02] MEDS: aripiprazole 5mg tablet PO SCH (09:45)
[2019-04-02] MEDS: ferrous sulfate 325mg tablet PO SCH ×2 (09:45→21:36)
[2019-04-02] MEDS: docusate sodium 100mg/10ml UD cup PO SCH ×2 (09:45→21:37)
[2019-04-02] MEDS: metoprolol succinate 25mg (24-HOUR) SR. Tablet PO SCH (09:46)
[2019-04-02] MEDS: pantoprazole 40mg Tablet.DR PO SCH ×2 (09:46→18:12)
[2019-04-02] MEDS: fluvoxamine 25 MG tablet PO SCH ×2 (09:46→21:36)
[2019-04-02] MEDS: levoTHYROXINE 25mcg tablet PO SCH (09:46)
[2019-04-02 12:00] VITALS: BP 110/60
[2019-04-02 20:00] VITALS: BP 143/80
[2019-04-02] MEDS: polyethylene glycol 3350 17gm powd pack PO SCH (21:00)
[2019-04-02] MEDS: quetiapine 100mg tablet PO SCH (21:40)
[2019-04-02] MEDS: acetaminophen 325mg/10.15ml oral unit dose solution PO PRN (21:41)
--- NOTE | 2019-04-02 23:59 | NUR ---
Patient moved into room 341 from 358a.
[2019-04-03] VITALS: BP 123/57
[2019-04-03] MEDS: ipratropium 0.5 MG/2.5ML nebule IH SCH ×4 (02:59→19:52)
[2019-04-03] MEDS: levalbuterol 0.63mg/3ml nebule IH SCH ×4 (03:00→19:52)
[2019-04-03 07:00] VITALS: BP 107/68
[2019-04-03] MEDS: docusate sodium 100mg/10ml UD cup PO SCH ×2 (08:00→20:00)
[2019-04-03] MEDS: lactulose 20gm/30ml cup PO SCH ×3 (08:06→20:34)
[2019-04-03] MEDS: levoTHYROXINE 25mcg tablet PO SCH (08:06)
[2019-04-03] MEDS: valproate sod 250mg/5ml UD oral syrup PO SCH ×2 (08:06→20:35)
[2019-04-03] MEDS: metoprolol succinate 25mg (24-HOUR) SR. Tablet PO SCH (08:07)
[2019-04-03] MEDS: aripiprazole 5mg tablet PO SCH (08:07)
[2019-04-03] MEDS: pantoprazole 40mg Tablet.DR PO SCH ×2 (08:07→17:14)
[2019-04-03] MEDS: lactobacillus rhamnosus 10,000 MMU CELLS/CAPSULE PO SCH ×2 (08:07→20:35)
[2019-04-03] MEDS: fluvoxamine 25 MG tablet PO SCH ×2 (08:07→20:35)
[2019-04-03] MEDS: pyridoxine 50mg tablet PO SCH (08:08)
[2019-04-03] MEDS: ferrous sulfate 325mg tablet PO SCH ×2 (08:08→20:35)
[2019-04-03 11:00] VITALS: BP 98/52
[2019-04-03 18:00] VITALS: BP 102/55
--- NOTE | 2019-04-03 18:12 | NUR ---
Problems reprioritized. Patient report given, questions answered & plan of care reviewed with JHOAN Valentin.
--- NOTE | 2019-04-03 18:13 | NUR ---
Patient in room [facility] 341. I have received report from JHOAN Navarro and had the opportunity to ask questions and assume patient care.
[2019-04-03] MEDS: polyethylene glycol 3350 17gm powd pack PO SCH (20:34)
[2019-04-03] MEDS: quetiapine 100mg tablet PO SCH (20:35)
[2019-04-04 00:22] VITALS: BP 86/50
[2019-04-04] MEDS: levalbuterol 0.63mg/3ml nebule IH SCH ×4 (02:30→20:07)
[2019-04-04] MEDS: ipratropium 0.5 MG/2.5ML nebule IH SCH ×4 (02:30→20:07)
--- NOTE | 2019-04-04 06:32 | NUR ---
Patient in room [facility] 341. I have received report from JHOAN Grubbs and had the opportunity to ask questions and assume patient care.
--- NOTE | 2019-04-04 06:34 | NUR ---
Patient in room [facility] 341. I have received report from JHOAN Valentin and had the opportunity to ask questions and assume patient care.
[2019-04-04 08:00] VITALS: BP 100/54
[2019-04-04] MEDS: lactulose 20gm/30ml cup PO SCH ×3 (08:00→21:00)
[2019-04-04] MEDS: docusate sodium 100mg/10ml UD cup PO SCH ×2 (08:00→20:00)
[2019-04-04] MEDS: metoprolol succinate 25mg (24-HOUR) SR. Tablet PO SCH (08:22)
[2019-04-04] MEDS: ferrous sulfate 325mg tablet PO SCH ×2 (08:22→19:35)
[2019-04-04] MEDS: pantoprazole 40mg Tablet.DR PO SCH ×2 (08:22→17:44)
[2019-04-04] MEDS: pyridoxine 50mg tablet PO SCH (08:22)
[2019-04-04] MEDS: valproate sod 250mg/5ml UD oral syrup PO SCH ×2 (08:22→21:00)
[2019-04-04] MEDS: fluvoxamine 25 MG tablet PO SCH ×2 (08:22→21:00)
[2019-04-04] MEDS: levoTHYROXINE 25mcg tablet PO SCH (08:22)
[2019-04-04] MEDS: lactobacillus rhamnosus 10,000 MMU CELLS/CAPSULE PO SCH ×2 (08:22→19:35)
[2019-04-04] MEDS: aripiprazole 5mg tablet PO SCH (08:22)
--- NOTE | 2019-04-04 11:33 | NUR ---
Reassessment: PO intake remained 50-75% with refusal of breakfast 04/03 however back to 75-100% PO intake at lunch and dinner yesterday, pending documented PO intake for today. LBM 04/04. Pt continues awaiting placement. Will continue to follow. Recommend: 1. Continue pureed food with nectar thick liquids per VICE PRESIDENT SUPPLY CHAIN recs 2. Double proteins TID 3. Routine bowel care 4. weekly wts Addendum: 04/04/19 at [address] Amended: Links added.
[2019-04-04 12:00] VITALS: BP 117/60
--- NOTE | 2019-04-04 18:23 | NUR ---
Patient in room [facility] 341. I have received report from JHOAN Jose and had the opportunity to ask questions and assume patient care.
--- NOTE | 2019-04-04 18:31 | NUR ---
Problems reprioritized. Patient report given, questions answered & plan of care reviewed with JHOAN Escudero.
[2019-04-04 20:00] VITALS: BP 112/59
[2019-04-04 20:01] VITALS: BP 120/55
[2019-04-04] MEDS: polyethylene glycol 3350 17gm powd pack PO SCH (21:00)
[2019-04-04] MEDS: quetiapine 100mg tablet PO SCH (21:55)
[2019-04-05] VITALS: BP 120/55
[2019-04-05 00:01] VITALS: BP 112/59
[2019-04-05] MEDS: ipratropium 0.5 MG/2.5ML nebule IH SCH ×4 (02:58→20:59)
[2019-04-05] MEDS: levalbuterol 0.63mg/3ml nebule IH SCH ×4 (02:58→20:59)
--- NOTE | 2019-04-05 06:08 | NUR ---
Problems reprioritized. Patient report given, questions answered & plan of care reviewed with JHOAN Grubbs.
--- NOTE | 2019-04-05 06:10 | NUR ---
Patient in room [facility] 341. I have received report from JHOAN Escudero and had the opportunity to ask questions and assume patient care.
[2019-04-05 07:00] VITALS: BP 143/87
[2019-04-05] MEDS: docusate sodium 100mg/10ml UD cup PO SCH ×2 (08:00→20:49)
[2019-04-05] MEDS: lactulose 20gm/30ml cup PO SCH ×3 (08:00→20:54)
[2019-04-05] MEDS: aripiprazole 5mg tablet PO SCH (08:08)
[2019-04-05] MEDS: pantoprazole 40mg Tablet.DR PO SCH ×2 (08:08→17:15)
[2019-04-05] MEDS: levoTHYROXINE 25mcg tablet PO SCH (08:08)
[2019-04-05] MEDS: lactobacillus rhamnosus 10,000 MMU CELLS/CAPSULE PO SCH ×2 (08:09→20:50)
[2019-04-05] MEDS: ferrous sulfate 325mg tablet PO SCH ×2 (08:09→20:50)
[2019-04-05] MEDS: pyridoxine 50mg tablet PO SCH (08:10)
[2019-04-05] MEDS: metoprolol succinate 25mg (24-HOUR) SR. Tablet PO SCH (08:10)
[2019-04-05] MEDS: fluvoxamine 25 MG tablet PO SCH ×2 (08:10→20:50)
[2019-04-05] MEDS: valproate sod 250mg/5ml UD oral syrup PO SCH ×2 (08:11→20:49)
[2019-04-05 11:30] VITALS: BP 101/56
--- NOTE | 2019-04-05 18:48 | NUR ---
Problems reprioritized. Patient report given, questions answered & plan of care reviewed with JHOAN Dean.
--- NOTE | 2019-04-05 19:02 | NUR ---
Patient in room [facility] 341. I have received report from Humera STAPLES and had the opportunity to ask questions and assume patient care.
[2019-04-05 20:00] VITALS: BP 90/63
[2019-04-05] MEDS: quetiapine 100mg tablet PO SCH (20:50)
[2019-04-05] MEDS: polyethylene glycol 3350 17gm powd pack PO SCH (20:54)
[2019-04-06] VITALS: BP 151/67
[2019-04-06] MEDS: ipratropium 0.5 MG/2.5ML nebule IH SCH ×4 (03:00→20:40)
[2019-04-06] MEDS: levalbuterol 0.63mg/3ml nebule IH SCH ×4 (03:00→20:40)
--- NOTE | 2019-04-06 06:31 | NUR ---
Problems reprioritized. Patient report given, questions answered & plan of care reviewed with Melanie STAPLES.
[2019-04-06 07:10] VITALS: BP 117/59
[2019-04-06] MEDS: levoTHYROXINE 25mcg tablet PO SCH (07:52)
[2019-04-06] MEDS: lactobacillus rhamnosus 10,000 MMU CELLS/CAPSULE PO SCH ×2 (07:52→20:00)
[2019-04-06] MEDS: fluvoxamine 25 MG tablet PO SCH ×2 (07:52→21:00)
[2019-04-06] MEDS: ferrous sulfate 325mg tablet PO SCH ×2 (07:52→20:00)
[2019-04-06] MEDS: pyridoxine 50mg tablet PO SCH (07:52)
[2019-04-06] MEDS: aripiprazole 5mg tablet PO SCH (07:52)
[2019-04-06] MEDS: metoprolol succinate 25mg (24-HOUR) SR. Tablet PO SCH (07:52)
[2019-04-06] MEDS: pantoprazole 40mg Tablet.DR PO SCH ×2 (07:52→16:48)
[2019-04-06] MEDS: valproate sod 250mg/5ml UD oral syrup PO SCH ×2 (07:53→21:00)
[2019-04-06] MEDS: lactulose 20gm/30ml cup PO SCH ×3 (07:54→21:00)
[2019-04-06] MEDS: docusate sodium 100mg/10ml UD cup PO SCH ×2 (07:54→20:00)
[2019-04-06 11:18] VITALS: BP 104/57
[2019-04-06 18:00] VITALS: BP 122/67
--- NOTE | 2019-04-06 18:12 | NUR ---
Problems reprioritized. Patient report given, questions answered & plan of care reviewed with JHOAN Dean.
--- NOTE | 2019-04-06 19:14 | NUR ---
Patient in room [facility] 341. I have received report from Melanie STAPLES and had the opportunity to ask questions and assume patient care.
[2019-04-06] MEDS: polyethylene glycol 3350 17gm powd pack PO SCH (21:00)
[2019-04-06] MEDS: quetiapine 100mg tablet PO SCH (23:00)
[2019-04-06] MEDS ORDERED: ziprasidone IM 20mg inj **IM only IM ONE (23:05)
--- NOTE | 2019-04-06 23:09 | NUR ---
Mrs Toledo very aggitated, security notified and present to control verbal abuse to staff and physical attacks of swinging and hitting staff. Unable to reason w/ Mrs Toledo at this time. Within minutes Mrs Toledo returned to her bed, took her night time Seroquil and siad " thank you honey for your help" Prior to this she had only foul abusive language for all who entered her room to help her. Rectal prolapse reduced, water given and she is resting at this time.
[2019-04-07] MEDS: levalbuterol 0.63mg/3ml nebule IH SCH ×4 (03:11→20:11)
[2019-04-07] MEDS: ipratropium 0.5 MG/2.5ML nebule IH SCH ×4 (03:11→20:11)
--- NOTE | 2019-04-07 06:15 | NUR ---
Patient in room [facility] 341. I have received report from Dianne STAPLES and had the opportunity to ask questions and assume patient care.
--- NOTE | 2019-04-07 06:30 | NUR ---
Problems reprioritized. Patient report given, questions answered & plan of care reviewed with Sarai STAPLES.
[2019-04-07 07:17] VITALS: BP 132/79
[2019-04-07] MEDS: docusate sodium 100mg/10ml UD cup PO SCH ×2 (08:00→20:00)
[2019-04-07] MEDS: lactulose 20gm/30ml cup PO SCH (08:00)
[2019-04-07] MEDS: ferrous sulfate 325mg tablet PO SCH ×2 (08:13→20:20)
[2019-04-07] MEDS: levoTHYROXINE 25mcg tablet PO SCH (08:13)
[2019-04-07] MEDS: fluvoxamine 25 MG tablet PO SCH ×2 (08:13→20:20)
[2019-04-07] MEDS: metoprolol succinate 25mg (24-HOUR) SR. Tablet PO SCH (08:13)
[2019-04-07] MEDS: pantoprazole 40mg Tablet.DR PO SCH ×2 (08:13→17:39)
[2019-04-07] MEDS: lactobacillus rhamnosus 10,000 MMU CELLS/CAPSULE PO SCH ×2 (08:13→20:19)
[2019-04-07] MEDS: pyridoxine 50mg tablet PO SCH (08:13)
[2019-04-07] MEDS: aripiprazole 5mg tablet PO SCH (08:13)
[2019-04-07] MEDS: valproate sod 250mg/5ml UD oral syrup PO SCH ×2 (08:14→20:21)
[2019-04-07 11:35] VITALS: BP 124/60
--- NOTE | 2019-04-07 18:27 | NUR ---
Problems reprioritized. Patient report given, questions answered & plan of care reviewed with Kimberly STAPLES.
[2019-04-07 20:00] VITALS: BP 100/58
[2019-04-07] MEDS: quetiapine 100mg tablet PO SCH (20:20)
[2019-04-07] MEDS: polyethylene glycol 3350 17gm powd pack PO SCH (20:44)
--- NOTE | 2019-04-07 23:45 | NUR ---
Pt aggitated, not allowing anyone to help her fix her bed as she is trying to lay on laxmi tube. Unable to leave room as pt is fall risk. Began screaming at RN/Aids, knocked over trash, waving hands, then began to swing at staff. notified. Received order for PO ativan.
--- NOTE | 2019-04-08 | NUR ---
Pt refusing ativan, continues to scream at staff, is aggitated and combative. Opened paper towel dispenser and attempting to radha all towels. Contacted for IM.
[2019-04-08] MEDS ORDERED: ziprasidone IM 20mg inj **IM only IM ONE (00:20)
--- NOTE | 2019-04-08 00:20 | NUR ---
Pt has calmed down and returned to bed without administration of IM injection. Pt safely back in bed, bed alarm activated.
[2019-04-08] MEDS: levalbuterol 0.63mg/3ml nebule IH SCH ×4 (02:48→20:17)
[2019-04-08] MEDS: ipratropium 0.5 MG/2.5ML nebule IH SCH ×4 (02:48→20:17)
--- NOTE | 2019-04-08 06:38 | NUR ---
Patient in room [facility] 341. I have received report from JHOAN SIMENTAL and had the opportunity to ask questions and assume patient care.
--- NOTE | 2019-04-08 06:41 | NUR ---
Problems reprioritized. Patient report given, questions answered & plan of care reviewed with JHOAN Abernathy.
[2019-04-08 07:00] VITALS: BP 96/60
[2019-04-08] MEDS: docusate sodium 100mg/10ml UD cup PO SCH ×2 (07:56→20:20)
[2019-04-08] MEDS: valproate sod 250mg/5ml UD oral syrup PO SCH ×2 (07:56→20:20)
[2019-04-08] MEDS: aripiprazole 5mg tablet PO SCH (07:56)
[2019-04-08] MEDS: levoTHYROXINE 25mcg tablet PO SCH (07:57)
[2019-04-08] MEDS: metoprolol succinate 25mg (24-HOUR) SR. Tablet PO SCH (07:57)
[2019-04-08] MEDS: pantoprazole 40mg Tablet.DR PO SCH ×2 (07:57→17:18)
[2019-04-08] MEDS: pyridoxine 50mg tablet PO SCH (07:57)
[2019-04-08] MEDS: fluvoxamine 25 MG tablet PO SCH ×2 (07:57→20:20)
[2019-04-08] MEDS: lactobacillus rhamnosus 10,000 MMU CELLS/CAPSULE PO SCH ×2 (07:57→20:21)
[2019-04-08] MEDS: ferrous sulfate 325mg tablet PO SCH ×2 (07:57→20:20)
[2019-04-08 11:00] VITALS: BP 93/56
--- NOTE | 2019-04-08 12:31 | NUR ---
Reassessment: Pt continues with fluctuating PO intake documented with 25% and 100%. No new weight taken since 03/03; d/w RN to obtain new wt to assess if pt has had any wt loss since PO intake has been fluctuating recently. Per RN notes pt agitated early this morning. LBM 04/07. Pt remains medically stable and awaiting placement per MD notes. Will continue to follow. Recommend: 1. Continue pureed food with nectar thick liquids per REINFORCEMENT MAKER recs 2. Double proteins TID 3. Routine bowel care 4. weekly wts Addendum: 04/08/19 at [address] Amended: Links added.
--- NOTE | 2019-04-08 18:39 | NUR ---
Problems reprioritized. Patient report given, questions answered & plan of care reviewed with blanca herbert.
[2019-04-08 20:04] VITALS: BP 106/52
[2019-04-08] MEDS: LORazepam 1 MG tablet PO PRN (20:20)
[2019-04-08] MEDS: polyethylene glycol 3350 17gm powd pack PO SCH (20:20)
[2019-04-08] MEDS: quetiapine 100mg tablet PO SCH (20:21)
[2019-04-08 23:58] VITALS: BP 121/67
[2019-04-09] MEDS: levalbuterol 0.63mg/3ml nebule IH SCH ×4 (02:54→20:34)
[2019-04-09] MEDS: ipratropium 0.5 MG/2.5ML nebule IH SCH ×4 (02:54→20:34)
--- NOTE | 2019-04-09 06:30 | NUR ---
Patient in room [facility] 341. I have received report from Glo Zepeda and had the opportunity to ask questions and assume patient care.
--- NOTE | 2019-04-09 06:37 | NUR ---
Problems reprioritized. Patient report given, questions answered & plan of care reviewed with JHOAN Michaels.
[2019-04-09 07:45] VITALS: BP 85/46
[2019-04-09] MEDS: metoprolol succinate 25mg (24-HOUR) SR. Tablet PO SCH (08:00)
[2019-04-09] MEDS: docusate sodium 100mg/10ml UD cup PO SCH ×2 (10:24→20:47)
[2019-04-09] MEDS: valproate sod 250mg/5ml UD oral syrup PO SCH ×2 (10:25→20:47)
[2019-04-09] MEDS: lactobacillus rhamnosus 10,000 MMU CELLS/CAPSULE PO SCH ×2 (10:26→20:47)
[2019-04-09] MEDS: pyridoxine 50mg tablet PO SCH (10:26)
[2019-04-09] MEDS: pantoprazole 40mg Tablet.DR PO SCH ×2 (10:26→18:30)
[2019-04-09] MEDS: fluvoxamine 25 MG tablet PO SCH ×2 (10:27→20:47)
[2019-04-09] MEDS: ferrous sulfate 325mg tablet PO SCH ×2 (10:27→20:47)
[2019-04-09] MEDS: levoTHYROXINE 25mcg tablet PO SCH (10:27)
[2019-04-09] MEDS: aripiprazole 5mg tablet PO SCH (10:29)
[2019-04-09 11:28] VITALS: BP 85/43
[2019-04-09 11:51] VITALS: BP 122/71
[2019-04-09 18:00] VITALS: BP 102/58
--- NOTE | 2019-04-09 18:03 | NUR ---
Patient in room [facility] 341. I have received report from JHOAN Michaels and had the opportunity to ask questions and assume patient care.
--- NOTE | 2019-04-09 18:30 | NUR ---
Problems reprioritized. Patient report given, questions answered & plan of care reviewed with Kota STAPLES.
[2019-04-09] MEDS: quetiapine 100mg tablet PO SCH (20:47)
[2019-04-09] MEDS: polyethylene glycol 3350 17gm powd pack PO SCH (20:48)
[2019-04-10] VITALS: BP 119/65
[2019-04-10] MEDS: levalbuterol 0.63mg/3ml nebule IH SCH ×4 (03:00→20:53)
[2019-04-10] MEDS: ipratropium 0.5 MG/2.5ML nebule IH SCH ×4 (03:00→20:53)
[2019-04-10 06:30] VITALS: BP 92/49
--- NOTE | 2019-04-10 06:30 | NUR ---
Patient in room [facility] 341. I have received report from Kota and had the opportunity to ask questions and assume patient care.
--- NOTE | 2019-04-10 06:42 | NUR ---
Problems reprioritized. Patient report given, questions answered & plan of care reviewed with JHOAN Salvador.
[2019-04-10] MEDS: docusate sodium 100mg/10ml UD cup PO SCH ×2 (07:28→21:06)
[2019-04-10] MEDS: lactobacillus rhamnosus 10,000 MMU CELLS/CAPSULE PO SCH ×2 (07:28→21:06)
[2019-04-10] MEDS: pyridoxine 50mg tablet PO SCH (07:28)
[2019-04-10] MEDS: aripiprazole 5mg tablet PO SCH (07:28)
[2019-04-10] MEDS: levoTHYROXINE 25mcg tablet PO SCH (07:28)
[2019-04-10] MEDS: fluvoxamine 25 MG tablet PO SCH ×2 (07:28→21:06)
[2019-04-10] MEDS: valproate sod 250mg/5ml UD oral syrup PO SCH ×2 (07:28→21:06)
[2019-04-10] MEDS: ferrous sulfate 325mg tablet PO SCH ×2 (07:28→21:06)
[2019-04-10] MEDS: pantoprazole 40mg Tablet.DR PO SCH ×2 (07:28→16:36)
[2019-04-10] MEDS: metoprolol succinate 25mg (24-HOUR) SR. Tablet PO SCH (07:29)
[2019-04-10 11:00] VITALS: BP 105/57
[2019-04-10 18:00] VITALS: BP 102/64
--- NOTE | 2019-04-10 18:25 | NUR ---
Problems reprioritized. Patient report given, questions answered & plan of care reviewed with
--- NOTE | 2019-04-10 18:30 | NUR ---
Patient in room [facility] 341. I have received report from Madeleine STAPLES and had the opportunity to ask questions and assume patient care.
[2019-04-10] MEDS: polyethylene glycol 3350 17gm powd pack PO SCH (21:06)
[2019-04-10] MEDS: quetiapine 100mg tablet PO SCH (21:06)
[2019-04-11] VITALS: BP 105/59
[2019-04-11] MEDS: levalbuterol 0.63mg/3ml nebule IH SCH ×4 (02:57→20:07)
[2019-04-11] MEDS: ipratropium 0.5 MG/2.5ML nebule IH SCH ×4 (02:57→20:07)
[2019-04-11 06:00] VITALS: BP 107/53
--- NOTE | 2019-04-11 06:05 | NUR ---
Patient in room [facility] 341. I have received report from Quang STAPLES and had the opportunity to ask questions and assume patient care.
--- NOTE | 2019-04-11 06:56 | NUR ---
Problems reprioritized. Patient report given, questions answered & plan of care reviewed with Batool STAPLES.
[2019-04-11] MEDS: pyridoxine 50mg tablet PO SCH (08:50)
[2019-04-11] MEDS: fluvoxamine 25 MG tablet PO SCH ×2 (08:50→20:34)
[2019-04-11] MEDS: levoTHYROXINE 25mcg tablet PO SCH (08:51)
[2019-04-11] MEDS: pantoprazole 40mg Tablet.DR PO SCH ×2 (08:51→17:19)
[2019-04-11] MEDS: lactobacillus rhamnosus 10,000 MMU CELLS/CAPSULE PO SCH ×2 (08:51→20:34)
[2019-04-11] MEDS: ferrous sulfate 325mg tablet PO SCH ×2 (08:52→20:34)
[2019-04-11] MEDS: aripiprazole 5mg tablet PO SCH (08:52)
[2019-04-11] MEDS: metoprolol succinate 25mg (24-HOUR) SR. Tablet PO SCH (08:52)
[2019-04-11] MEDS: valproate sod 250mg/5ml UD oral syrup PO SCH ×2 (08:53→20:34)
[2019-04-11] MEDS: docusate sodium 100mg/10ml UD cup PO SCH ×2 (08:54→20:34)
[2019-04-11 11:00] VITALS: BP 99/61
[2019-04-11 18:00] VITALS: BP 126/62
--- NOTE | 2019-04-11 18:11 | NUR ---
Problems reprioritized. Patient report given, questions answered & plan of care reviewed with Quang STAPLES.
--- NOTE | 2019-04-11 18:30 | NUR ---
Patient in room EMILY 341. I have received report from Batool STAPLES and had the opportunity to ask questions and assume patient care.
[2019-04-11] MEDS: polyethylene glycol 3350 17gm powd pack PO SCH (20:34)
[2019-04-11] MEDS: quetiapine 100mg tablet PO SCH (20:34)
--- NOTE | 2019-04-11 22:00 | NUR ---
Pt emerged from shower, and RN noticed pt rectum had prolapsed. Pt refuses to let this RN or another RN examine pt or try to help her. Will continue to monitor and attempt to help patient later.
[2019-04-12] VITALS: BP 96/57
[2019-04-12] MEDS: ipratropium 0.5 MG/2.5ML nebule IH SCH ×4 (02:49→20:41)
[2019-04-12] MEDS: levalbuterol 0.63mg/3ml nebule IH SCH ×4 (02:49→20:41)
--- NOTE | 2019-04-12 03:35 | NUR ---
Patient prolapsed rectum replaced into the patient's body. No complications with this intervention.
[2019-04-12 06:30] VITALS: BP 118/87
--- NOTE | 2019-04-12 06:30 | NUR ---
Problems reprioritized. Patient report given, questions answered & plan of care reviewed with Deneen STAPLES. Addendum: 04/12/19 at 0644 by Mike Alvarado RN Incorrect. I have given report to Concepcion STAPLES
--- NOTE | 2019-04-12 06:40 | NUR ---
Patient in room [facility] 341. I have received report from Quang STAPLES and had the opportunity to ask questions and assume patient care.
--- NOTE | 2019-04-12 07:00 | NUR ---
Patient in room [facility] 341. I have received report from JHOAN Javier and had the opportunity to ask questions and assume patient care.
[2019-04-12] MEDS: fluvoxamine 25 MG tablet PO SCH ×2 (08:35→20:18)
[2019-04-12] MEDS: valproate sod 250mg/5ml UD oral syrup PO SCH ×2 (08:35→20:17)
[2019-04-12] MEDS: pyridoxine 50mg tablet PO SCH (08:35)
[2019-04-12] MEDS: aripiprazole 5mg tablet PO SCH (08:35)
[2019-04-12] MEDS: lactobacillus rhamnosus 10,000 MMU CELLS/CAPSULE PO SCH ×2 (08:35→20:17)
[2019-04-12] MEDS: ferrous sulfate 325mg tablet PO SCH ×2 (08:35→20:17)
[2019-04-12] MEDS: metoprolol succinate 25mg (24-HOUR) SR. Tablet PO SCH (08:35)
[2019-04-12] MEDS: levoTHYROXINE 25mcg tablet PO SCH (08:35)
[2019-04-12] MEDS: docusate sodium 100mg/10ml UD cup PO SCH ×2 (08:35→20:17)
[2019-04-12] MEDS: pantoprazole 40mg Tablet.DR PO SCH ×2 (08:36→17:09)
[2019-04-12 11:00] VITALS: BP 118/75
--- NOTE | 2019-04-12 18:00 | NUR ---
Patient in room [facility] 341. I have received report from Adela STAPLES and had the opportunity to ask questions and assume patient care.
--- NOTE | 2019-04-12 18:30 | NUR ---
Problems reprioritized. Patient report given, questions answered & plan of care reviewed with JHOAN Urrutia.
[2019-04-12 20:00] VITALS: BP 117/70
[2019-04-12] MEDS: quetiapine 100mg tablet PO SCH (20:17)
[2019-04-12] MEDS: polyethylene glycol 3350 17gm powd pack PO SCH (20:18)
[2019-04-13] VITALS: BP 135/72
[2019-04-13] MEDS: levalbuterol 0.63mg/3ml nebule IH SCH ×4 (03:00→20:03)
[2019-04-13] MEDS: ipratropium 0.5 MG/2.5ML nebule IH SCH ×4 (03:00→20:03)
--- NOTE | 2019-04-13 06:05 | NUR ---
Patient in room [facility] 341. I have received report from JHOAN Urrutia and had the opportunity to ask questions and assume patient care.
[2019-04-13 06:30] VITALS: BP 105/60
--- NOTE | 2019-04-13 06:38 | NUR ---
Problems reprioritized. Patient report given, questions answered & plan of care reviewed with laura rn.
[2019-04-13] MEDS: metoprolol succinate 25mg (24-HOUR) SR. Tablet PO SCH (08:21)
[2019-04-13] MEDS: ferrous sulfate 325mg tablet PO SCH ×2 (08:21→20:00)
[2019-04-13] MEDS: valproate sod 250mg/5ml UD oral syrup PO SCH ×2 (08:21→20:27)
[2019-04-13] MEDS: docusate sodium 100mg/10ml UD cup PO SCH ×2 (08:21→20:00)
[2019-04-13] MEDS: pantoprazole 40mg Tablet.DR PO SCH ×2 (08:21→17:18)
[2019-04-13] MEDS: pyridoxine 50mg tablet PO SCH (08:21)
[2019-04-13] MEDS: lactobacillus rhamnosus 10,000 MMU CELLS/CAPSULE PO SCH ×2 (08:21→20:00)
[2019-04-13] MEDS: levoTHYROXINE 25mcg tablet PO SCH (08:21)
[2019-04-13] MEDS: fluvoxamine 25 MG tablet PO SCH ×2 (08:21→20:27)
[2019-04-13] MEDS: aripiprazole 5mg tablet PO SCH (08:22)
--- NOTE | 2019-04-13 14:46 | NUR ---
reassessment: Pt PO 50% avg meals meeting needs. LBM 04/13 receiving colace. Last wt 03/03; TONIO d/w RN for new scaled wt if possible in order to determine wt hx. Will continue to monitor. Recommend: 1. Continue pureed food with nectar thick liquids per GREEN FEED ATTENDANT recs 2. Double proteins TID 3. Routine bowel care 4. weekly wts Addendum: 04/13/19 at [address] Amended: Links added.
--- NOTE | 2019-04-13 18:20 | NUR ---
Problems reprioritized. Patient report given, questions answered & plan of care reviewed with JHOAN Green.
--- NOTE | 2019-04-13 19:01 | NUR ---
Patient in room [facility] 345. I have received report from JHOAN Chapman and had the opportunity to ask questions and assume patient care.
[2019-04-13] MEDS: polyethylene glycol 3350 17gm powd pack PO SCH (20:26)
[2019-04-13] MEDS: quetiapine 100mg tablet PO SCH (20:26)
--- NOTE | 2019-04-13 20:30 | NUR ---
Patient refused all her medications tonight. She said; "I already took them a half hour ago from someone else. ". I explained that she had not taken these medications yet and that if she had I the computer would had let me know that she had already taken them. She then kicked me out of her room.
--- NOTE | 2019-04-13 21:29 | NUR ---
patient medically cleared, is awaiting placement. Blood draws have not been drawn since 03/29/19 Addendum: 04/13/19 at 2132 by Peter Bray RN Amended: Links added.
[2019-04-13 21:33] VITALS: BP 127/76
[2019-04-14] MEDS: levalbuterol 0.63mg/3ml nebule IH SCH ×3 (03:22→14:33)
[2019-04-14] MEDS: ipratropium 0.5 MG/2.5ML nebule IH SCH ×3 (03:23→14:33)
--- NOTE | 2019-04-14 06:13 | NUR ---
Problems reprioritized. Patient report given, questions answered & plan of care reviewed with Tamanna STAPLES.
[2019-04-14 07:00] VITALS: BP 138/69
[2019-04-14] MEDS: valproate sod 250mg/5ml UD oral syrup PO SCH ×2 (09:24→22:48)
[2019-04-14] MEDS: fluvoxamine 25 MG tablet PO SCH ×2 (09:24→22:45)
[2019-04-14] MEDS: LORazepam 1 MG tablet PO PRN (09:24)
[2019-04-14] MEDS: docusate sodium 100mg/10ml UD cup PO SCH ×2 (09:24→22:49)
[2019-04-14] MEDS: pantoprazole 40mg Tablet.DR PO SCH ×2 (09:25→17:52)
[2019-04-14] MEDS: aripiprazole 5mg tablet PO SCH (09:25)
[2019-04-14] MEDS: lactobacillus rhamnosus 10,000 MMU CELLS/CAPSULE PO SCH ×2 (09:25→22:46)
[2019-04-14] MEDS: levoTHYROXINE 25mcg tablet PO SCH (09:25)
[2019-04-14] MEDS: pyridoxine 50mg tablet PO SCH (09:25)
[2019-04-14] MEDS: ferrous sulfate 325mg tablet PO SCH ×2 (09:25→22:46)
[2019-04-14] MEDS: metoprolol succinate 25mg (24-HOUR) SR. Tablet PO SCH (09:26)
[2019-04-14 12:00] VITALS: BP 107/58
--- NOTE | 2019-04-14 15:00 | NUR ---
Different pt. family member found pt. on floor and called for help. 2 hospital staff members assessed and helped pt. off floor and back into bed. No noted injuries found. Pt. denies any pain in hips or legs. Denies hitting her head. Vitals taken, stable : 98.6, 93, 16, 90 RA, 129/81. Pt. reeducated to use her call light and bed alarm set on bed. Will cont. to monitor for any changes on my shift.
--- NOTE | 2019-04-14 15:44 | NUR ---
PAGER ID: [phone] MESSAGE: KRYS CAMPBELL IN 345A FELL. VSS, NO IMMEDIATE INJURIES NOTED, WILL MONITOR FOR LATENT COMPLICATIONS.
[2019-04-14] MEDS ORDERED: levalbuterol 0.63mg/3ml nebule IH PRN (16:30)
[2019-04-14] MEDS ORDERED: ipratropium 0.5 MG/2.5ML nebule IH PRN (16:30)
[2019-04-14 19:00] VITALS: BP 126/73
[2019-04-14] MEDS: polyethylene glycol 3350 17gm powd pack PO SCH (21:00)
[2019-04-14] MEDS: acetaminophen 325mg/10.15ml oral unit dose solution PO PRN (22:43)
[2019-04-14] MEDS: quetiapine 100mg tablet PO SCH (22:47)
--- NOTE | 2019-04-14 23:05 | NUR ---
patient complained of right wrist hurting to tech. I went in with Tylenol as ordered for pain. Looked at patients wrist it was bruised swollen,and painful to touch with movement. Hospitalist notified, He wants the AM hospitalist to evaluate it tomorrow.
[2019-04-15] VITALS: BP 127/69
--- NOTE | 2019-04-15 06:42 | NUR ---
Problems reprioritized. Patient report given, questions answered & plan of care reviewed with JHOAN Abernathy.
--- NOTE | 2019-04-15 07:12 | NUR ---
Patient in room [facility] 341. I have received report from JHOAN DANIEL and had the opportunity to ask questions and assume patient care.
[2019-04-15 07:21] VITALS: BP 103/46
[2019-04-15] MEDS: docusate sodium 100mg/10ml UD cup PO SCH ×2 (07:29→21:14)
[2019-04-15] MEDS: pyridoxine 50mg tablet PO SCH (07:30)
[2019-04-15] MEDS: fluvoxamine 25 MG tablet PO SCH ×2 (07:30→21:14)
[2019-04-15] MEDS: metoprolol succinate 25mg (24-HOUR) SR. Tablet PO SCH (07:30)
[2019-04-15] MEDS: aripiprazole 5mg tablet PO SCH (07:30)
[2019-04-15] MEDS: lactobacillus rhamnosus 10,000 MMU CELLS/CAPSULE PO SCH ×2 (07:30→21:14)
[2019-04-15] MEDS: valproate sod 250mg/5ml UD oral syrup PO SCH ×2 (07:30→21:15)
[2019-04-15] MEDS: levoTHYROXINE 25mcg tablet PO SCH (07:30)
[2019-04-15] MEDS: pantoprazole 40mg Tablet.DR PO SCH ×2 (07:30→17:59)
[2019-04-15] MEDS: ferrous sulfate 325mg tablet PO SCH ×2 (07:31→21:14)
--- NOTE | 2019-04-15 18:39 | NUR ---
Problems reprioritized. Patient report given, questions answered & plan of care reviewed with JHOAN BERKOWITZ.
--- NOTE | 2019-04-15 18:41 | NUR ---
Patient in room [facility] 341. I have received report from NATAHN STAPLES and had the opportunity to ask questions and assume patient care.
[2019-04-15 20:00] VITALS: BP 121/66
[2019-04-15] MEDS: polyethylene glycol 3350 17gm powd pack PO SCH ×2 (21:00→21:13)
[2019-04-15] MEDS: quetiapine 100mg tablet PO SCH (21:14)
--- NOTE | 2019-04-16 06:30 | NUR ---
Problems reprioritized. Patient report given, questions answered & plan of care reviewed with MARCELINO STAPLES.
[2019-04-16 07:00] VITALS: BP 108/69
[2019-04-16] MEDS: levoTHYROXINE 25mcg tablet PO SCH (09:09)
[2019-04-16] MEDS: valproate sod 250mg/5ml UD oral syrup PO SCH ×2 (09:10→20:46)
[2019-04-16] MEDS: fluvoxamine 25 MG tablet PO SCH ×2 (09:11→20:46)
[2019-04-16] MEDS: aripiprazole 5mg tablet PO SCH (09:11)
[2019-04-16] MEDS: ferrous sulfate 325mg tablet PO SCH ×2 (09:11→20:00)
[2019-04-16] MEDS: pyridoxine 50mg tablet PO SCH (09:11)
[2019-04-16] MEDS: metoprolol succinate 25mg (24-HOUR) SR. Tablet PO SCH (09:11)
[2019-04-16] MEDS: lactobacillus rhamnosus 10,000 MMU CELLS/CAPSULE PO SCH ×2 (09:11→20:00)
[2019-04-16] MEDS: pantoprazole 40mg Tablet.DR PO SCH ×2 (09:11→17:46)
[2019-04-16] MEDS: docusate sodium 100mg/10ml UD cup PO SCH ×2 (09:13→20:00)
[2019-04-16 11:11] VITALS: BP 111/63
--- NOTE | 2019-04-16 18:19 | NUR ---
Problems reprioritized. Patient report given, questions answered & plan of care reviewed with JHOAN Osuna.
[2019-04-16 19:00] VITALS: BP 110/60
--- NOTE | 2019-04-16 19:30 | NUR ---
Pt wouldn't allow nurse to perform full physical assessment. Pt is very agitated. However stated "I love your hair, it's so cute", then yells and leaams. Addendum: 04/17/19 at 0223 by Thao Gan RN Amended: Links added.
[2019-04-16] MEDS: polyethylene glycol 3350 17gm powd pack PO SCH (20:46)
[2019-04-16] MEDS: quetiapine 100mg tablet PO SCH (20:46)
--- NOTE | 2019-04-16 20:47 | NUR ---
Patient has refused all medications at this time. When nurse was explaining to her the medications that the doctor ordered and what they were for pt got upset yelling and screaming that she doesn't take those. Nurse tried to explain to patient that there were no new meds from the doctor, and she persisted to yell and scream, " no, I don't want any of those didn't you hear me". Bed alarm on. Addendum: 04/16/19 at 2050 by Thao Gan RN Amended: Links added.
[2019-04-17 06:00] VITALS: BP 138/75
--- NOTE | 2019-04-17 06:26 | NUR ---
Problems reprioritized. Patient report given, questions answered & plan of care reviewed with Josemanuel STAPLES. Addendum: 04/17/19 at 0640 by Thao Gan RN Amended: Links added.
--- NOTE | 2019-04-17 06:33 | NUR ---
Patient in room [facility] 341. I have received report from JHOAN ASCENCIO and had the opportunity to ask questions and assume patient care.
[2019-04-17] MEDS: valproate sod 250mg/5ml UD oral syrup PO SCH ×3 (07:47→20:49)
[2019-04-17] MEDS: pantoprazole 40mg Tablet.DR PO SCH ×2 (07:47→17:54)
[2019-04-17] MEDS: metoprolol succinate 25mg (24-HOUR) SR. Tablet PO SCH (07:48)
[2019-04-17] MEDS: levoTHYROXINE 25mcg tablet PO SCH (07:48)
[2019-04-17] MEDS: lactobacillus rhamnosus 10,000 MMU CELLS/CAPSULE PO SCH ×2 (07:48→20:28)
[2019-04-17] MEDS: aripiprazole 5mg tablet PO SCH (07:48)
[2019-04-17] MEDS: fluvoxamine 25 MG tablet PO SCH ×2 (07:48→20:27)
[2019-04-17] MEDS: pyridoxine 50mg tablet PO SCH (07:48)
[2019-04-17] MEDS: ferrous sulfate 325mg tablet PO SCH ×2 (07:49→20:28)
[2019-04-17] MEDS: docusate sodium 100mg/10ml UD cup PO SCH ×2 (08:00→20:00)
--- NOTE | 2019-04-17 10:52 | NUR ---
Reassessment: PO intake continues to fluctuate 75-100% with some 25-50% receiving double protein TID. New scaled wt obtained, pt -8.1 kg since 03/03 (6.5 weeks). Possible wt change could be r/t changes in fluid balance previously receiving Lasix. Will send Ensure pudding BIDBL and Magic cup QD with dinner to provide additional food options that are within the limitations of current diet order. LBM 04/16. Pt continues awaiting placement. Will continue to follow. Recommend: 1. Continue pureed food with nectar thick liquids per TOBACCO STRIPPER HAND recs 2. Double proteins TID; Ensure pudding BIDBL; Magic cup QD with dinner 3. Routine bowel care 4. weekly wts Addendum: 04/17/19 at [address] Amended: Links added.
[2019-04-17 11:15] VITALS: BP 130/80
[2019-04-17] MEDS: acetaminophen 325mg/10.15ml oral unit dose solution PO PRN ×2 (14:37→20:21)
--- NOTE | 2019-04-17 14:43 | NUR ---
Patient was assisted to C with SBA. Tab alarm was placed on patient, wipes and call light placed within patient's reach. Educated patient to use call light for assist when she is done voiding or having bm. Patient agreed and stated, "ok." Left room for approx 5 mins and went back to check on patient. Patient found down in a sitting position calling for help. Patient had removed tabs alarm. Patient unable to describe how she fell but denied hitting head. No injuries seen however patient c/o pain to right hip/pelvis area. Patient had on non skid socks. Patient assisted to bed with x2 mod assist. Tylenol administered to patient as ordered for pain. Dr. Morton notified of patient's fall and ordered xray of hip and pelvis. Patient moved to room across from nurse's station 358a. Bed alarm is on, bed is low and locked, side rails x2 up and call light placed within patient's reach. Addendum: 04/17/19 at 1542 by Josemanuel Savage RN Patient was found down in a sitting position in front of the [facility] and next to the bed calling for help.
[2019-04-17 18:00] VITALS: BP 155/81
--- NOTE | 2019-04-17 18:06 | NUR ---
Patient in room [facility] 358. I have received report from JHOAN Abernathy and had the opportunity to ask questions and assume patient care.
--- NOTE | 2019-04-17 18:08 | NUR ---
Problems reprioritized. Patient report given, questions answered & plan of care reviewed with JHOAN Escudero.
[2019-04-17] MEDS: quetiapine 100mg tablet PO SCH (20:28)
[2019-04-17] MEDS: polyethylene glycol 3350 17gm powd pack PO SCH (20:46)
[2019-04-18] VITALS (18 sets, daily range): BP systolic 92–147; BP diastolic 53–88
--- NOTE | 2019-04-18 06:51 | NUR ---
Problems reprioritized. Patient report given, questions answered & plan of care reviewed with JHOAN Nolen.
[2019-04-18] MEDS: pantoprazole 40mg Tablet.DR PO SCH ×2 (07:30→17:48)
[2019-04-18] MEDS: metoprolol succinate 25mg (24-HOUR) SR. Tablet PO SCH (07:53)
[2019-04-18] MEDS: valproate sod 250mg/5ml UD oral syrup PO SCH ×2 (07:54→20:11)
[2019-04-18] MEDS: aripiprazole 5mg tablet PO SCH (07:58)
[2019-04-18] MEDS: levoTHYROXINE 25mcg tablet PO SCH (07:58)
[2019-04-18] MEDS: fluvoxamine 25 MG tablet PO SCH ×2 (07:58→20:11)
[2019-04-18] MEDS: docusate sodium 100mg/10ml UD cup PO SCH ×2 (07:58→20:11)
[2019-04-18] MEDS: pyridoxine 50mg tablet PO SCH (07:58)
[2019-04-18] MEDS: lactobacillus rhamnosus 10,000 MMU CELLS/CAPSULE PO SCH ×2 (07:58→20:12)
[2019-04-18] MEDS: ferrous sulfate 325mg tablet PO SCH ×2 (07:58→20:11)
[2019-04-18] MEDS ORDERED: sevoflurane 250ml liquid IH ONE (08:26)
[2019-04-18] MEDS ORDERED: fentaNYL/PF 50MCG/1 ML 2ML syringe ONE (08:44)
[2019-04-18] MEDS ORDERED: propofol inj 20 ML IV ONE (09:01)
[2019-04-18] MEDS ORDERED: ePHEDrine 50MG/ML INJ. ONE (09:01)
[2019-04-18] MEDS ORDERED: ringers solution, lacted 1,000 ML IV SCH (09:17)
[2019-04-18] MEDS ORDERED: meperidine/PF 25mg/ml syringe IV PRN ×3 (09:20)
[2019-04-18] MEDS ORDERED: ondansetron/PF 4mg/2ml inj IV PRN (09:20)
[2019-04-18] MEDS ORDERED: proCHLORperazine 10 MG/2 ml inj IV PRN (09:20)
[2019-04-18] MEDS ORDERED: morphine 4 MG/ML inj SYRINge IV PRN ×2 (09:20)
--- NOTE | 2019-04-18 09:35 | NUR ---
Received from OR via BED, accompanied by Anesthesiologist MONIQUE and report given by Anesthesiolgist. PT DROWSY, OXYGENATING WELL ON 10 LPM O2 VIA MASK, NO RESP DISTRESS NOTED. NO NAUSEA OR C/O PAIN AT THIS TIME. [place] DSG TO R LATERAL HIP WITH SCANT AMOUNT OF SANGINOUS DRAINAGE ON IT. FC PATENT. SCDS ON. VSS.
--- NOTE | 2019-04-18 10:45 | NUR ---
Pt transferred from Recovery Room to 4011b via bed. Pt awake and alert. VSS. Pt reported minimal R hip pain at this time and recently received Demerol IV by Recovery Room nurse for pain. Dressing to R hip CDI. Oriented pt to and surroundings. Call light within reach and bed alarm turned on for safety.
--- NOTE | 2019-04-18 10:55 | NUR ---
Report called to receiving nurse. Transferred via BED Belongings IN PT ROOM. VSS, DECLINED OFFER OF ICE CHIPS OR FLUIDS. MEDICATED FOR PAIN WITH DEMEROL, APPEARS TO BE RESTING COMFORTABLY. TRANSFERRED TO ORTHO FLOOR IN STABLE CONDITION. Special Issues communicated to receiving nurse.
--- NOTE | 2019-04-18 11:20 | NUR ---
Report given to Omar Clark RN.
--- NOTE | 2019-04-18 14:51 | NUR ---
PAGER ID: [phone] MESSAGE: RE: [id number] Gogo Toledo. postop today, nothing ordered for pain. Patient complains of 7/10 pain. Maybe [place]? Thanks. EDEN [id number]
[2019-04-18] MEDS: acetaminophen 325mg/10.15ml oral unit dose solution PO PRN (15:12)
--- NOTE | 2019-04-18 15:58 | NUR ---
I have reviewed and agree with all interventions, assessments performed and documented by Jeff STAPLES.
--- NOTE | 2019-04-18 18:10 | NUR ---
Patient in room ORTHO 4011. I have received report from Sarah STAPLES and had the opportunity to ask questions and assume patient care.
--- NOTE | 2019-04-18 18:26 | NUR ---
Problems reprioritized. Patient report given, questions answered & plan of care reviewed with Talha STAPLES.
[2019-04-18] MEDS: polyethylene glycol 3350 17gm powd pack PO SCH (20:12)
[2019-04-18] MEDS: quetiapine 100mg tablet PO SCH (20:12)
[2019-04-19 02:00] VITALS: BP 113/63
[2019-04-19] MEDS: HYDROcodone/acetaminophen 5mg/325mg tablet PO PRN (05:43)
[2019-04-19 06:00] VITALS: BP 101/82
--- NOTE | 2019-04-19 06:10 | NUR ---
Problems reprioritized. Patient report given, questions answered & plan of care reviewed with Alexandra STAPLES.
--- NOTE | 2019-04-19 06:30 | NUR ---
Patient in room ORTHO 4011. I have received report from JHOAN Palencia and had the opportunity to ask questions and assume patient care.
[2019-04-19] MEDS: aripiprazole 5mg tablet PO SCH (09:01)
[2019-04-19] MEDS: pantoprazole 40mg Tablet.DR PO SCH ×2 (09:01→17:30)
[2019-04-19] MEDS: docusate sodium 100mg/10ml UD cup PO SCH ×2 (09:01→20:18)
[2019-04-19] MEDS: aspirin 81mg tablet.DR PO SCH (09:02)
[2019-04-19] MEDS: lactobacillus rhamnosus 10,000 MMU CELLS/CAPSULE PO SCH ×2 (09:02→20:18)
[2019-04-19] MEDS: valproate sod 250mg/5ml UD oral syrup PO SCH ×2 (09:02→20:18)
[2019-04-19] MEDS: levoTHYROXINE 25mcg tablet PO SCH (09:03)
[2019-04-19] MEDS: ferrous sulfate 325mg tablet PO SCH ×2 (09:03→20:18)
[2019-04-19] MEDS: fluvoxamine 25 MG tablet PO SCH ×2 (09:03→20:18)
[2019-04-19] MEDS: pyridoxine 50mg tablet PO SCH (09:06)
[2019-04-19] MEDS: metoprolol succinate 25mg (24-HOUR) SR. Tablet PO SCH (09:09)
[2019-04-19 10:00] VITALS: BP 98/50
[2019-04-19 11:15] LABS: BASOPHILS # (AUTO) 0.1 X10'3 (0-0.2); BASOPHILS % (AUTO) 0.8 % (0-1); EOSINOPHILS # (AUTO) 0.7 X10'3 (0-0.9); EOSINOPHILS % (AUTO) 8.2 % (0-6); HEMATOCRIT 34.7 % (35.0-45.0); HEMOGLOBIN 11.6 g/dl (12.0-16.0); LYMPHOCYTES # (AUTO) 2.3 X10'3 (1.1-4.8); LYMPHOCYTES % (AUTO) 28.3 % (21-51); MEAN CORPUSCULAR HEMOGLOBIN 32.7 PG (27.0-31.0); MEAN CORPUSCULAR HGB CONC 33.4 g/dL (33.0-36.5); MEAN CORPUSCULAR VOLUME 98.1 FL (78-98); MEAN PLATELET VOLUME 8.5 FL (7.4-10.4); MONOCYTES # (AUTO) 0.8 X10'3 (0-0.9); MONOCYTES % (AUTO) 9.3 % (2-12); NEUTROPHILS # (AUTO) 4.4 X10'3 (1.8-7.7); NEUTROPHILS % (AUTO) 53.4 % (42-75); PLATELET COUNT 171 X10'3 (140-440); RED BLOOD COUNT 3.54 X10'6 (4.20-5.60); RED CELL DISTRIBUTION WIDTH 15.6 % (11.5-14.5); WHITE BLOOD COUNT 8.1 X10'3 (4.5-11.0)
[2019-04-19 11:33] LABS: ALANINE AMINOTRANSFERASE 14 U/L (12-78); ALBUMIN 2.3 G/DL (3.4-5.0); ALBUMIN/GLOBULIN RATIO 0.5 (1.1-1.5); ALKALINE PHOSPHATASE 66 IU/L (46-116); ANION GAP 7 (8-16); ASPARTATE AMINO TRANSFERASE 14 U/L (10-37); BILIRUBIN,TOTAL 0.2 MG/DL (0.1-1.0); BLOOD UREA NITROGEN 10 MG/DL (7-18); BUN/CREATININE RATIO 21.3 (6.6-38.0); CALCIUM 8.4 MG/DL (8.5-10.1); CHLORIDE 103 MMOL/L (99-107); CREATININE 0.47 MG/DL (0.40-0.90); GLUCOSE 90 MG/DL (70-104); MAGNESIUM 1.4 MG/DL (1.5-2.4); PHOSPHORUS 3.3 MG/DL (2.3-4.5); POTASSIUM 3.8 MMOL/L (3.5-5.1); SODIUM 140 MMOL/L (135-145); TOTAL CARBON DIOXIDE 30.5 MMOL/L (24-32); TOTAL PROTEIN 6.5 G/DL (6.4-8.2); eGFR > 90 ML/MIN
[2019-04-19 14:00] VITALS: BP 93/56
[2019-04-19] MEDS: magnesium Cl slow-release 64mg tablet PO PRN (15:56)
[2019-04-19 18:00] VITALS: BP 107/55
--- NOTE | 2019-04-19 18:30 | NUR ---
Problems reprioritized. Patient report given, questions answered & plan of care reviewed with JHOAN Garcia.
[2019-04-19] MEDS: polyethylene glycol 3350 17gm powd pack PO SCH (20:18)
[2019-04-19] MEDS: quetiapine 100mg tablet PO SCH (20:18)
[2019-04-19] MEDS: HYDROcodone/acetaminophen 10/325mg tab PO PRN (20:21)
[2019-04-19 22:00] VITALS: BP 135/66
[2019-04-20] MEDS: HYDROcodone/acetaminophen 10/325mg tab PO PRN ×2 (05:32→20:13)
--- NOTE | 2019-04-20 06:14 | NUR ---
Report given to Alexandra STAPLES.
[2019-04-20 07:51] VITALS: BP 132/64
[2019-04-20] MEDS: docusate sodium 100mg/10ml UD cup PO SCH ×3 (08:00→10:24)
[2019-04-20 10:00] VITALS: BP 105/62
[2019-04-20] MEDS: aripiprazole 5mg tablet PO SCH (10:10)
[2019-04-20] MEDS: levoTHYROXINE 25mcg tablet PO SCH (10:11)
[2019-04-20] MEDS: ferrous sulfate 325mg tablet PO SCH ×2 (10:11→20:00)
[2019-04-20] MEDS: metoprolol succinate 25mg (24-HOUR) SR. Tablet PO SCH (10:11)
[2019-04-20] MEDS: fluvoxamine 25 MG tablet PO SCH ×2 (10:11→20:12)
[2019-04-20] MEDS: lactobacillus rhamnosus 10,000 MMU CELLS/CAPSULE PO SCH ×2 (10:11→20:00)
[2019-04-20] MEDS: aspirin 81mg tablet.DR PO SCH (10:12)
[2019-04-20] MEDS: pyridoxine 50mg tablet PO SCH (10:12)
[2019-04-20] MEDS: pantoprazole 40mg Tablet.DR PO SCH ×2 (10:13→17:30)
[2019-04-20] MEDS: valproate sod 250mg/5ml UD oral syrup PO SCH ×2 (10:14→10:26)
[2019-04-20 18:00] VITALS: BP 138/63
--- NOTE | 2019-04-20 18:20 | NUR ---
Received report from Alexandra STAPLES, assumed care of patient with Radha STAPLES.
[2019-04-20] MEDS: docusate sod 100mg capsule PO SCH (20:00)
[2019-04-20] MEDS: polyethylene glycol 3350 17gm powd pack PO SCH (20:12)
[2019-04-20] MEDS: valproic acid 250mg capsule PO SCH (20:12)
[2019-04-20] MEDS: quetiapine 100mg tablet PO SCH (20:13)
[2019-04-20] MEDS: LORazepam 1 MG tablet PO PRN (21:14)
[2019-04-20 22:00] VITALS: BP 169/78
[2019-04-21] MEDS: HYDROcodone/acetaminophen 10/325mg tab PO PRN ×2 (05:21→20:15)
--- NOTE | 2019-04-21 05:47 | NUR ---
In agreement with and have reviewed all charting and med pass completed by Myrna STAPLES for the shift time frame.
--- NOTE | 2019-04-21 06:10 | NUR ---
Gave report to Alexandra STAPLES.
[2019-04-21] MEDS: pantoprazole 40mg Tablet.DR PO SCH ×2 (07:30→17:30)
[2019-04-21] MEDS: docusate sod 100mg capsule PO SCH ×2 (08:00→20:15)
[2019-04-21] MEDS: aspirin 81mg tablet.DR PO SCH (08:00)
[2019-04-21] MEDS: lactobacillus rhamnosus 10,000 MMU CELLS/CAPSULE PO SCH ×2 (08:00→20:16)
[2019-04-21] MEDS: fluvoxamine 25 MG tablet PO SCH ×2 (08:00→20:14)
[2019-04-21] MEDS: levoTHYROXINE 25mcg tablet PO SCH (08:00)
[2019-04-21] MEDS: ferrous sulfate 325mg tablet PO SCH ×2 (08:00→20:19)
[2019-04-21] MEDS: pyridoxine 50mg tablet PO SCH (08:00)
[2019-04-21] MEDS: valproic acid 250mg capsule PO SCH ×2 (08:00→20:15)
[2019-04-21] MEDS: metoprolol succinate 25mg (24-HOUR) SR. Tablet PO SCH (08:00)
[2019-04-21] MEDS: aripiprazole 5mg tablet PO SCH (08:00)
--- NOTE | 2019-04-21 18:46 | NUR ---
Patient in room ORTHO 4011. I have received report from Alexandra STAPLES and had the opportunity to ask questions and assume patient care.
[2019-04-21] MEDS: polyethylene glycol 3350 17gm powd pack PO SCH (20:16)
[2019-04-21] MEDS: quetiapine 100mg tablet PO SCH (20:16)
[2019-04-21 22:00] VITALS: BP 147/74
[2019-04-22 06:00] VITALS: BP 120/81
--- NOTE | 2019-04-22 06:37 | NUR ---
Problems reprioritized. Patient report given, questions answered & plan of care reviewed with Humera RN.
--- NOTE | 2019-04-22 06:37 | NUR ---
Patient in room ORTHO 4011. I have received report from JHOAN Dean and had the opportunity to ask questions and assume patient care.
[2019-04-22] MEDS: docusate sod 100mg capsule PO SCH ×2 (07:44→20:17)
[2019-04-22] MEDS: HYDROcodone/acetaminophen 10/325mg tab PO PRN ×2 (07:44→15:27)
[2019-04-22] MEDS: pantoprazole 40mg Tablet.DR PO SCH ×2 (07:44→17:29)
[2019-04-22] MEDS: metoprolol succinate 25mg (24-HOUR) SR. Tablet PO SCH (07:44)
[2019-04-22] MEDS: pyridoxine 50mg tablet PO SCH (07:45)
[2019-04-22] MEDS: lactobacillus rhamnosus 10,000 MMU CELLS/CAPSULE PO SCH ×2 (07:45→20:16)
[2019-04-22] MEDS: valproic acid 250mg capsule PO SCH ×2 (07:45→20:16)
[2019-04-22] MEDS: aspirin 81mg tablet.DR PO SCH (07:46)
[2019-04-22] MEDS: ferrous sulfate 325mg tablet PO SCH ×2 (07:46→20:17)
[2019-04-22] MEDS: aripiprazole 5mg tablet PO SCH (07:46)
[2019-04-22] MEDS: levoTHYROXINE 25mcg tablet PO SCH (07:46)
[2019-04-22] MEDS: fluvoxamine 25 MG tablet PO SCH ×2 (07:58→20:17)
[2019-04-22 10:00] VITALS: BP 135/65
--- NOTE | 2019-04-22 11:43 | NUR ---
reassessment: Pt s/p fall and hip fx repair PO 50-75% avg meals meeting needs. TONIO d/w RN for Vitamin D supplementation per MD approval given new fx and pt taking valproic acid HS. Receiving electrolyte replacement per protocol. LBM 04/17 receiving colace, miralax and also Fe w/ recent Sx. Will monitor for additional bowel care needs post-op. Recommend: 1. Continue pureed food with nectar thick liquids per INFORMATION SERVICES CONSULTANT recs 2. Double proteins TID 3. Routine bowel care 4. Vitamin D per MD s/p hip fx and receiving valproic acid HS 5. wt per rx Addendum: 04/22/19 at [address] Amended: Links added.
[2019-04-22 18:00] VITALS: BP 97/45
--- NOTE | 2019-04-22 18:29 | NUR ---
Problems reprioritized. Patient report given, questions answered & plan of care reviewed with JHOAN Garcia.
--- NOTE | 2019-04-22 18:42 | NUR ---
Patient in room ORTHO 4011. I have received report from JHOAN Grubbs and had the opportunity to ask questions and assume patient care.
[2019-04-22] MEDS: polyethylene glycol 3350 17gm powd pack PO SCH (20:16)
[2019-04-22] MEDS: quetiapine 100mg tablet PO SCH (20:17)
[2019-04-22 22:00] VITALS: BP 103/51
[2019-04-23] MEDS: HYDROcodone/acetaminophen 10/325mg tab PO PRN ×2 (05:17→22:45)
--- NOTE | 2019-04-23 06:33 | NUR ---
Problems reprioritized. Patient report given, questions answered & plan of care reviewed with JHOAN Schulz.
[2019-04-23 06:55] VITALS: BP 85/48
[2019-04-23] MEDS: metoprolol succinate 25mg (24-HOUR) SR. Tablet PO SCH (08:00)
[2019-04-23] MEDS: pyridoxine 50mg tablet PO SCH (08:10)
[2019-04-23] MEDS: pantoprazole 40mg Tablet.DR PO SCH ×2 (08:11→17:53)
[2019-04-23] MEDS: fluvoxamine 25 MG tablet PO SCH ×2 (08:11→20:24)
[2019-04-23] MEDS: lactobacillus rhamnosus 10,000 MMU CELLS/CAPSULE PO SCH ×2 (08:11→20:24)
[2019-04-23] MEDS: levoTHYROXINE 25mcg tablet PO SCH (08:11)
[2019-04-23] MEDS: aripiprazole 5mg tablet PO SCH (08:11)
[2019-04-23] MEDS: ferrous sulfate 325mg tablet PO SCH ×2 (08:11→20:24)
[2019-04-23] MEDS: valproic acid 250mg capsule PO SCH ×2 (08:11→20:27)
[2019-04-23] MEDS: aspirin 81mg tablet.DR PO SCH (08:11)
[2019-04-23] MEDS: docusate sod 100mg capsule PO SCH ×2 (08:12→20:24)
[2019-04-23 10:58] VITALS: BP 105/62
[2019-04-23 18:00] VITALS: BP 117/54
--- NOTE | 2019-04-23 18:23 | NUR ---
Problems reprioritized. Patient report given, questions answered & plan of care reviewed with JHOAN Gómez.
--- NOTE | 2019-04-23 18:32 | NUR ---
Patient in room ORTHO 4011. I have received report from JHOAN Schulz and had the opportunity to ask questions and assume patient care.
[2019-04-23] MEDS: quetiapine 100mg tablet PO SCH (20:24)
[2019-04-23] MEDS: polyethylene glycol 3350 17gm powd pack PO SCH (20:24)
[2019-04-23] MEDS: magnesium Cl slow-release 64mg tablet PO PRN (21:44)
[2019-04-23 22:00] VITALS: BP 125/78
[2019-04-24 06:00] VITALS: BP 96/52
--- NOTE | 2019-04-24 06:20 | NUR ---
Patient in room ORTHO 4011. I have received report from FRACISCO STAPLES and had the opportunity to ask questions and assume patient care.
--- NOTE | 2019-04-24 06:35 | NUR ---
Problems reprioritized. Patient report given, questions answered & plan of care reviewed with JHOAN Guidry.
[2019-04-24] MEDS: pantoprazole 40mg Tablet.DR PO SCH ×2 (07:32→17:41)
[2019-04-24] MEDS: ferrous sulfate 325mg tablet PO SCH ×2 (07:33→20:45)
[2019-04-24] MEDS: aspirin 81mg tablet.DR PO SCH (07:33)
[2019-04-24] MEDS: lactobacillus rhamnosus 10,000 MMU CELLS/CAPSULE PO SCH ×2 (07:33→20:46)
[2019-04-24] MEDS: docusate sod 100mg capsule PO SCH ×2 (07:33→20:46)
[2019-04-24] MEDS: aripiprazole 5mg tablet PO SCH (07:33)
[2019-04-24] MEDS: levoTHYROXINE 25mcg tablet PO SCH (07:33)
[2019-04-24] MEDS: pyridoxine 50mg tablet PO SCH (07:33)
[2019-04-24] MEDS: fluvoxamine 25 MG tablet PO SCH ×2 (07:34→20:45)
[2019-04-24] MEDS: valproic acid 250mg capsule PO SCH ×2 (07:34→20:45)
[2019-04-24] MEDS: metoprolol succinate 25mg (24-HOUR) SR. Tablet PO SCH (07:36)
[2019-04-24 07:38] VITALS: BP 115/74
[2019-04-24] MEDS: HYDROcodone/acetaminophen 10/325mg tab PO PRN ×3 (07:38→22:08)
[2019-04-24 10:00] VITALS: BP 94/51
--- NOTE | 2019-04-24 11:00 | NUR ---
PATIENT UP TO SHOWER WITH STAFF, ASSISTED WITH BATHING TOLERATED. PATIENT VERY PLEASANT THIS MORNING.
--- NOTE | 2019-04-24 15:04 | NUR ---
PATIENT SITTING UP IN RECLINER, COOPERATIVE WITH CARE, WILL CONTINUE TO MONITOR.
[2019-04-24 18:00] VITALS: BP 111/71
--- NOTE | 2019-04-24 18:05 | NUR ---
Problems reprioritized. Patient report given, questions answered & plan of care reviewed with FRACISCO STAPLES.
--- NOTE | 2019-04-24 18:10 | NUR ---
Patient in room ORTHO 4011. I have received report from JHOAN Guidry and had the opportunity to ask questions and assume patient care.
[2019-04-24] MEDS: quetiapine 100mg tablet PO SCH (20:46)
[2019-04-24] MEDS: polyethylene glycol 3350 17gm powd pack PO SCH (20:47)
[2019-04-24 22:00] VITALS: BP 96/58
[2019-04-25] MEDS: LORazepam 1 MG tablet PO PRN (01:10)
[2019-04-25 06:00] VITALS: BP 100/49
--- NOTE | 2019-04-25 06:10 | NUR ---
Problems reprioritized. Patient report given, questions answered & plan of care reviewed with JHOAN Obrien.
--- NOTE | 2019-04-25 06:18 | NUR ---
RECEIVED REPORT FROM JHOAN YAP
[2019-04-25] MEDS: aripiprazole 5mg tablet PO SCH (07:38)
[2019-04-25] MEDS: levoTHYROXINE 25mcg tablet PO SCH (07:42)
[2019-04-25] MEDS: ferrous sulfate 325mg tablet PO SCH ×2 (07:42→20:35)
[2019-04-25] MEDS: pantoprazole 40mg Tablet.DR PO SCH ×2 (07:42→17:16)
[2019-04-25] MEDS: pyridoxine 50mg tablet PO SCH (07:43)
[2019-04-25] MEDS: aspirin 81mg tablet.DR PO SCH (07:44)
[2019-04-25] MEDS: docusate sod 100mg capsule PO SCH ×2 (07:44→20:35)
[2019-04-25] MEDS: fluvoxamine 25 MG tablet PO SCH ×2 (07:44→20:34)
[2019-04-25] MEDS: lactobacillus rhamnosus 10,000 MMU CELLS/CAPSULE PO SCH ×2 (07:44→20:34)
[2019-04-25] MEDS: metoprolol succinate 25mg (24-HOUR) SR. Tablet PO SCH (07:45)
[2019-04-25] MEDS: valproic acid 250mg capsule PO SCH ×2 (07:46→20:36)
[2019-04-25] MEDS: HYDROcodone/acetaminophen 10/325mg tab PO PRN ×2 (09:19→14:09)
[2019-04-25 10:00] VITALS: BP 116/54
[2019-04-25 18:00] VITALS: BP 89/49
--- NOTE | 2019-04-25 18:10 | NUR ---
Patient in room ORTHO 4011. I have received report from JHOAN Obrien and had the opportunity to ask questions and assume patient care.
--- NOTE | 2019-04-25 18:20 | NUR ---
gave report to blanca crouch
[2019-04-25 19:13] VITALS: BP 115/67
[2019-04-25] MEDS: quetiapine 100mg tablet PO SCH (20:35)
[2019-04-25] MEDS: polyethylene glycol 3350 17gm powd pack PO SCH (20:36)
[2019-04-25 22:00] VITALS: BP 104/61
[2019-04-26 06:00] VITALS: BP 96/53
--- NOTE | 2019-04-26 06:00 | NUR ---
Problems reprioritized. Patient report given, questions answered & plan of care reviewed with JHOAN Obrien.
--- NOTE | 2019-04-26 06:15 | NUR ---
received report from blanca crouch
[2019-04-26] MEDS: docusate sod 100mg capsule PO SCH ×2 (08:00→20:53)
[2019-04-26] MEDS: pyridoxine 50mg tablet PO SCH (08:02)
[2019-04-26] MEDS: metoprolol succinate 25mg (24-HOUR) SR. Tablet PO SCH (08:02)
[2019-04-26] MEDS: aripiprazole 5mg tablet PO SCH (08:03)
[2019-04-26] MEDS: levoTHYROXINE 25mcg tablet PO SCH (08:04)
[2019-04-26] MEDS: ferrous sulfate 325mg tablet PO SCH ×2 (08:04→20:54)
[2019-04-26] MEDS: valproic acid 250mg capsule PO SCH ×2 (08:05→20:56)
[2019-04-26] MEDS: lactobacillus rhamnosus 10,000 MMU CELLS/CAPSULE PO SCH ×2 (08:06→20:53)
[2019-04-26] MEDS: aspirin 81mg tablet.DR PO SCH (08:06)
[2019-04-26] MEDS: pantoprazole 40mg Tablet.DR PO SCH ×2 (08:06→16:59)
[2019-04-26] MEDS: fluvoxamine 25 MG tablet PO SCH ×2 (08:06→20:55)
[2019-04-26 10:00] VITALS: BP 106/59
[2019-04-26] MEDS: HYDROcodone/acetaminophen 10/325mg tab PO PRN ×2 (11:12→17:01)
[2019-04-26 18:00] VITALS: BP 100/48
--- NOTE | 2019-04-26 18:25 | NUR ---
GAVE REPORT TO JHOAN NOLAND
--- NOTE | 2019-04-26 18:26 | NUR ---
Patient in room ORTHO 4011. I have received report from Camille STAPLES and had the opportunity to ask questions and assume patient care.
[2019-04-26] MEDS: quetiapine 100mg tablet PO SCH (20:57)
[2019-04-26] MEDS: polyethylene glycol 3350 17gm powd pack PO SCH (21:00)
[2019-04-26 22:00] VITALS: BP 107/69
[2019-04-27 06:00] VITALS: BP 100/64
--- NOTE | 2019-04-27 06:32 | NUR ---
Problems reprioritized. Patient report given, questions answered & plan of care reviewed with Shamika STAPLES.
[2019-04-27] MEDS: valproic acid 250mg capsule PO SCH ×2 (08:20→20:05)
[2019-04-27] MEDS: ferrous sulfate 325mg tablet PO SCH ×2 (08:20→20:04)
[2019-04-27] MEDS: levoTHYROXINE 25mcg tablet PO SCH (08:20)
[2019-04-27] MEDS: lactobacillus rhamnosus 10,000 MMU CELLS/CAPSULE PO SCH ×2 (08:20→20:04)
[2019-04-27] MEDS: pyridoxine 50mg tablet PO SCH (08:20)
[2019-04-27] MEDS: metoprolol succinate 25mg (24-HOUR) SR. Tablet PO SCH (08:21)
[2019-04-27] MEDS: aripiprazole 5mg tablet PO SCH (08:21)
[2019-04-27] MEDS: fluvoxamine 25 MG tablet PO SCH ×2 (08:21→20:05)
[2019-04-27] MEDS: docusate sod 100mg capsule PO SCH ×2 (08:21→20:04)
[2019-04-27] MEDS: aspirin 81mg tablet.DR PO SCH (08:21)
[2019-04-27] MEDS: pantoprazole 40mg Tablet.DR PO SCH (08:21)
[2019-04-27 10:00] VITALS: BP 108/55
--- NOTE | 2019-04-27 10:23 | NUR ---
STATES MITZI BLAS, LOOKED AT IT AND STATED IF YOU CAN MOVE IT, IT ISN'T BROKEN. ASK PATIENT IF I COULD TAKE THE WRAP OFF, SHE DECLINED. Addendum: 04/27/19 at 1115 by Shamika Sheridan RN Amended: Links added.
[2019-04-27] MEDS: HYDROcodone/acetaminophen 10/325mg tab PO PRN ×2 (12:24→20:07)
--- NOTE | 2019-04-27 13:48 | NUR ---
Wound care note Patient was on our wound care list for a low derrick. Patient is no longer a low derrick. She does not have any pressure issues at this time. Continue with interventions to prevent skin breakdown.
--- NOTE | 2019-04-27 14:44 | NUR ---
reassessment: Pt PO 75% avg meals meeting needs. LBM 04/27. Will continue to monitor. Recommend: 1. Continue pureed food with nectar thick liquids per MAMMOGRAPHY SUPERVISOR recs 2. Double proteins TID 3. Routine bowel care 4. Vitamin D per MD s/p hip fx and receiving valproic acid HS 5. wt per rx Addendum: 04/27/19 at [address] Amended: Links added.
[2019-04-27 18:00] VITALS: BP 125/61
--- NOTE | 2019-04-27 18:26 | NUR ---
Patient in room ORTHO 4011. I have received report from Shamika STAPLES and had the opportunity to ask questions and assume patient care.
[2019-04-27] MEDS: quetiapine 100mg tablet PO SCH (20:05)
[2019-04-27] MEDS: polyethylene glycol 3350 17gm powd pack PO SCH (21:00)
[2019-04-27 22:00] VITALS: BP 107/52
[2019-04-28 05:00] VITALS: BP 119/59
--- NOTE | 2019-04-28 06:20 | NUR ---
Problems reprioritized. Patient report given, questions answered & plan of care reviewed with Shamika STAPLES and Minnie STAPLES.
--- NOTE | 2019-04-28 06:48 | NUR ---
Patient in room ORTHO 4011. I have received report from Francie STAPLES and had the opportunity to ask questions and assume patient care. Pt in bed resting, all needs met at this time. will continue to monitor.
--- NOTE | 2019-04-28 06:53 | NUR ---
Patient in room ORTHO 4011. I have received report from Francie STAPLES and had the opportunity to ask questions and assume patient care.
[2019-04-28] MEDS: pantoprazole 40mg Tablet.DR PO SCH ×3 (07:30→17:16)
[2019-04-28] MEDS: aripiprazole 5mg tablet PO SCH (08:09)
[2019-04-28] MEDS: fluvoxamine 25 MG tablet PO SCH ×2 (08:09→20:05)
[2019-04-28] MEDS: levoTHYROXINE 25mcg tablet PO SCH (08:09)
[2019-04-28] MEDS: aspirin 81mg tablet.DR PO SCH (08:09)
[2019-04-28] MEDS: pyridoxine 50mg tablet PO SCH (08:10)
[2019-04-28] MEDS: lactobacillus rhamnosus 10,000 MMU CELLS/CAPSULE PO SCH ×2 (08:10→20:05)
[2019-04-28] MEDS: ferrous sulfate 325mg tablet PO SCH ×2 (08:10→20:05)
[2019-04-28] MEDS: valproic acid 250mg capsule PO SCH ×2 (08:10→20:05)
[2019-04-28] MEDS: docusate sod 100mg capsule PO SCH ×2 (08:10→20:05)
[2019-04-28] MEDS: metoprolol succinate 25mg (24-HOUR) SR. Tablet PO SCH (08:10)
[2019-04-28] MEDS: HYDROcodone/acetaminophen 10/325mg tab PO PRN ×2 (08:19→13:33)
--- NOTE | 2019-04-28 09:51 | NUR ---
[place] to surgical incision removed per md orders, 8 fco removed and intact, incision site well approximated, no s/s of infection, pt tolerated well, denies pain/discomfort, clean dry dressing in place, will continue to monitor.
[2019-04-28 10:00] VITALS: BP 105/65
--- NOTE | 2019-04-28 17:54 | NUR ---
I have reviewed and agree with all interventions, assessments performed and documented by Minnie STAPLES .
--- NOTE | 2019-04-28 18:14 | NUR ---
Problems reprioritized. Patient report given, questions answered & plan of care reviewed with Becka STAPLES.
--- NOTE | 2019-04-28 18:14 | NUR ---
Report to Charmaine STAPLES
--- NOTE | 2019-04-28 18:30 | NUR ---
Patient in room ORTHO 4011. I have received report from JHOAN Hartman and had the opportunity to ask questions and assume patient care. Addendum: 04/28/19 at 1902 by Richard Guy RN Amended: Links added.
--- NOTE | 2019-04-28 19:40 | NUR ---
VERY CONFUSED AT TIMES, FORGETS IN HOSPITAL STATES HER SON BUILT THIS PLACE SHE HAS LIVED HER FOR 15 YEARS AND PICKED OUT ALL THE PAINTINGS. PT IS PLEASANT. Addendum: 04/29/19 at 0419 by Richard Guy RN Amended: Links added.
--- NOTE | 2019-04-28 19:40 | NUR ---
SAT 88% ON R/A, 94% ON 1.5L N/C Addendum: 04/29/19 at 0419 by Richard Guy RN Amended: Links added.
[2019-04-28] MEDS: polyethylene glycol 3350 17gm powd pack PO SCH (20:05)
[2019-04-28] MEDS: quetiapine 100mg tablet PO SCH (20:05)
--- NOTE | 2019-04-29 06:30 | NUR ---
Problems reprioritized. Patient report given, questions answered & plan of care reviewed with JHOAN MONTEJO. Addendum: 04/29/19 at 0648 by Richard Guy RN Amended: Links added.
--- NOTE | 2019-04-29 06:30 | NUR ---
Patient in room [facility]TH[facility] 4011. I have received report from CHARLES STAPLES and had the opportunity to ask questions and assume patient care.
[2019-04-29] MEDS: docusate sod 100mg capsule PO SCH ×2 (08:00→20:00)
[2019-04-29] MEDS: lactobacillus rhamnosus 10,000 MMU CELLS/CAPSULE PO SCH (08:00)
[2019-04-29] MEDS: pantoprazole 40mg Tablet.DR PO SCH ×2 (08:14→17:40)
[2019-04-29] MEDS: ferrous sulfate 325mg tablet PO SCH ×2 (08:15→20:47)
[2019-04-29] MEDS: aripiprazole 5mg tablet PO SCH (08:15)
[2019-04-29] MEDS: fluvoxamine 25 MG tablet PO SCH ×2 (08:16→20:48)
[2019-04-29] MEDS: levoTHYROXINE 25mcg tablet PO SCH (08:16)
[2019-04-29] MEDS: aspirin 81mg tablet.DR PO SCH (08:16)
[2019-04-29] MEDS: valproic acid 250mg capsule PO SCH ×2 (08:16→20:47)
[2019-04-29] MEDS: pyridoxine 50mg tablet PO SCH (08:17)
[2019-04-29] MEDS: metoprolol succinate 25mg (24-HOUR) SR. Tablet PO SCH (08:17)
[2019-04-29] MEDS: HYDROcodone/acetaminophen 10/325mg tab PO PRN ×2 (08:17→17:40)
[2019-04-29 10:00] VITALS: BP 114/49
[2019-04-29 18:00] VITALS: BP 133/65
--- NOTE | 2019-04-29 18:10 | NUR ---
Problems reprioritized. Patient report given, questions answered & plan of care reviewed with LYDIA STAPLES.
[2019-04-29] MEDS: quetiapine 100mg tablet PO SCH (20:48)
[2019-04-29] MEDS: polyethylene glycol 3350 17gm powd pack PO SCH (21:00)
[2019-04-30] MEDS: pantoprazole 40mg Tablet.DR PO SCH ×2 (09:06→19:25)
[2019-04-30] MEDS: HYDROcodone/acetaminophen 10/325mg tab PO PRN ×2 (09:06→14:36)
[2019-04-30] MEDS: aspirin 81mg tablet.DR PO SCH (09:06)
[2019-04-30] MEDS: pyridoxine 50mg tablet PO SCH (09:06)
[2019-04-30] MEDS: ferrous sulfate 325mg tablet PO SCH ×2 (09:07→19:25)
[2019-04-30] MEDS: fluvoxamine 25 MG tablet PO SCH ×2 (09:07→20:41)
[2019-04-30] MEDS: levoTHYROXINE 25mcg tablet PO SCH (09:07)
[2019-04-30] MEDS: valproic acid 250mg capsule PO SCH ×2 (09:07→20:41)
[2019-04-30] MEDS: metoprolol succinate 25mg (24-HOUR) SR. Tablet PO SCH (09:08)
[2019-04-30] MEDS: aripiprazole 5mg tablet PO SCH (09:08)
[2019-04-30] MEDS: docusate sod 100mg capsule PO SCH ×2 (09:08→19:25)
[2019-04-30 10:00] VITALS: BP 144/85
[2019-04-30 18:00] VITALS: BP 109/69
--- NOTE | 2019-04-30 18:15 | NUR ---
Problems reprioritized. Patient report given, questions answered & plan of care reviewed with FRACISCO STAPLES.
--- NOTE | 2019-04-30 18:48 | NUR ---
Patient in room ORTHO 4011. I have received report from JHOAN Guidry and had the opportunity to ask questions and assume patient care.
[2019-04-30] MEDS: quetiapine 100mg tablet PO SCH (20:41)
[2019-04-30] MEDS: polyethylene glycol 3350 17gm powd pack PO SCH (20:42)
[2019-04-30 22:00] VITALS: BP 127/66
[2019-05-01 06:10] VITALS: BP 122/65
--- NOTE | 2019-05-01 06:24 | NUR ---
Problems reprioritized. Patient report given, questions answered & plan of care reviewed with JHOAN Damian.
--- NOTE | 2019-05-01 06:26 | NUR ---
I have received patient report from Dalia STAPLES
[2019-05-01] MEDS: valproic acid 250mg capsule PO SCH ×2 (07:30→20:58)
[2019-05-01] MEDS: pantoprazole 40mg Tablet.DR PO SCH ×2 (07:30→17:39)
[2019-05-01] MEDS: fluvoxamine 25 MG tablet PO SCH ×2 (07:30→20:58)
[2019-05-01] MEDS: aripiprazole 5mg tablet PO SCH (07:30)
[2019-05-01] MEDS: pyridoxine 50mg tablet PO SCH (07:30)
[2019-05-01] MEDS: docusate sod 100mg capsule PO SCH ×2 (07:31→20:58)
[2019-05-01] MEDS: ferrous sulfate 325mg tablet PO SCH ×2 (07:31→20:58)
[2019-05-01] MEDS: levoTHYROXINE 25mcg tablet PO SCH (07:31)
[2019-05-01] MEDS: aspirin 81mg tablet.DR PO SCH (07:31)
[2019-05-01] MEDS: metoprolol succinate 25mg (24-HOUR) SR. Tablet PO SCH (07:33)
[2019-05-01 09:45] VITALS: BP 113/62
--- NOTE | 2019-05-01 09:57 | NUR ---
PAGER ID: [phone] MESSAGE: Dr. Berhane Toledo stated she had just had seizer when I walked into room. She seemed to have weakness in right arm, but then was able to use right arm. Talked to stroke nurse she said CT scan not needed. Nati [id number] neuro (222 character message out of a maximum of 240)
[2019-05-01] MEDS: LORazepam 1 MG tablet PO PRN (10:03)
[2019-05-01 18:00] VITALS: BP 104/60
--- NOTE | 2019-05-01 18:08 | NUR ---
Patient report given to Christine STAPLES
--- NOTE | 2019-05-01 18:24 | NUR ---
Patient in room ORTHO 4011. I have received report from JHOAN Damian and had the opportunity to ask questions and assume patient care.
--- NOTE | 2019-05-01 18:25 | NUR ---
Patient in room [facility]TH[facility] 4011. I have received report from DELLA and had the opportunity to ask questions and assume patient care.
[2019-05-01] MEDS: polyethylene glycol 3350 17gm powd pack PO SCH (20:58)
[2019-05-01] MEDS: quetiapine 100mg tablet PO SCH (20:58)
[2019-05-01] MEDS: HYDROcodone/acetaminophen 5mg/325mg tablet PO PRN (21:02)
[2019-05-01 22:00] VITALS: BP 100/54
[2019-05-02 06:10] VITALS: BP 121/87
--- NOTE | 2019-05-02 06:19 | NUR ---
I have received patient report from Paramjit RN's
--- NOTE | 2019-05-02 06:32 | NUR ---
Problems reprioritized. Patient report given, questions answered & plan of care reviewed with JHOAN Damian.
[2019-05-02] MEDS: valproic acid 250mg capsule PO SCH ×2 (08:44→20:36)
[2019-05-02] MEDS: pyridoxine 50mg tablet PO SCH (08:44)
[2019-05-02] MEDS: aripiprazole 5mg tablet PO SCH (08:44)
[2019-05-02] MEDS: fluvoxamine 25 MG tablet PO SCH ×2 (08:44→20:35)
[2019-05-02] MEDS: levoTHYROXINE 25mcg tablet PO SCH (08:44)
[2019-05-02] MEDS: pantoprazole 40mg Tablet.DR PO SCH ×2 (08:45→17:53)
[2019-05-02] MEDS: ferrous sulfate 325mg tablet PO SCH ×2 (08:45→20:35)
[2019-05-02] MEDS: docusate sod 100mg capsule PO SCH ×2 (08:45→20:35)
[2019-05-02] MEDS: metoprolol succinate 25mg (24-HOUR) SR. Tablet PO SCH (08:45)
[2019-05-02] MEDS: aspirin 81mg tablet.DR PO SCH (08:45)
[2019-05-02 10:00] VITALS: BP 143/77
[2019-05-02] MEDS: LORazepam 1 MG tablet PO PRN (16:33)
--- NOTE | 2019-05-02 18:19 | NUR ---
Patient in room ORTHO 4011. I have received report from JHOAN Damian and had the opportunity to ask questions and assume patient care.
--- NOTE | 2019-05-02 18:37 | NUR ---
Patient report given to Christine STAPLES
--- NOTE | 2019-05-02 18:51 | NUR ---
Patient in room [facility]TH[facility] 4011. I have received report from tanya and had the opportunity to ask questions and assume patient care.
[2019-05-02 18:57] VITALS: BP 123/65
[2019-05-02] MEDS: polyethylene glycol 3350 17gm powd pack PO SCH (20:35)
[2019-05-02] MEDS: quetiapine 100mg tablet PO SCH (20:36)
[2019-05-02 22:00] VITALS: BP 129/64
[2019-05-03 06:00] VITALS: BP 109/57
--- NOTE | 2019-05-03 06:08 | NUR ---
received report from blanca crouch
--- NOTE | 2019-05-03 06:23 | NUR ---
Problems reprioritized. Patient report given, questions answered & plan of care reviewed with JHOAN Obrien.
[2019-05-03] MEDS: LORazepam 1 MG tablet PO PRN (07:30)
[2019-05-03] MEDS: HYDROcodone/acetaminophen 10/325mg tab PO PRN ×2 (07:30→12:52)
[2019-05-03] MEDS: aripiprazole 5mg tablet PO SCH (07:31)
[2019-05-03] MEDS: pyridoxine 50mg tablet PO SCH (07:33)
[2019-05-03] MEDS: metoprolol succinate 25mg (24-HOUR) SR. Tablet PO SCH (07:33)
[2019-05-03] MEDS: aspirin 81mg tablet.DR PO SCH (07:33)
[2019-05-03] MEDS: levoTHYROXINE 25mcg tablet PO SCH (07:34)
[2019-05-03] MEDS: ferrous sulfate 325mg tablet PO SCH ×2 (07:34→20:02)
[2019-05-03] MEDS: pantoprazole 40mg Tablet.DR PO SCH ×2 (07:35→17:01)
[2019-05-03] MEDS: valproic acid 250mg capsule PO SCH ×2 (07:35→21:10)
[2019-05-03] MEDS: fluvoxamine 25 MG tablet PO SCH ×2 (07:35→21:10)
[2019-05-03] MEDS: docusate sod 100mg capsule PO SCH ×2 (07:38→20:00)
[2019-05-03 10:00] VITALS: BP 90/49
--- NOTE | 2019-05-03 11:29 | NUR ---
reassessment: Pt PO 75-100% avg meals meeting needs. LBM 05/02. No nutrition concerns at this time. Will continue to monitor. Recommend: 1. Continue pureed food with nectar thick liquids per MOTION PICTURE OPERATOR recs 2. Double proteins TID 3. Routine bowel care 4. Vitamin D per MD s/p hip fx and receiving valproic acid HS 5. wt per rx Addendum: 05/03/19 at [address] Amended: Links added.
--- NOTE | 2019-05-03 12:54 | NUR ---
scanner on computer not working checked med prior to admin, continue to monitor
--- NOTE | 2019-05-03 18:08 | NUR ---
GAVE REPORT TO JHOAN CHAMBERLAIN
[2019-05-03 19:00] VITALS: BP 94/62
[2019-05-03] MEDS: polyethylene glycol 3350 17gm powd pack PO SCH (21:00)
[2019-05-03] MEDS: quetiapine 100mg tablet PO SCH (21:10)
[2019-05-03 23:00] VITALS: BP 128/72
[2019-05-04 05:00] VITALS: BP 93/57
--- NOTE | 2019-05-04 07:09 | NUR ---
Problems reprioritized. Patient report given, questions answered & plan of care reviewed with MYRIAM. Addendum: 05/04/19 at 0709 by Rob Cardenas RN Amended: Links added.
[2019-05-04] MEDS: fluvoxamine 25 MG tablet PO SCH ×3 (08:00→20:08)
[2019-05-04] MEDS: docusate sod 100mg capsule PO SCH ×2 (09:24→20:00)
[2019-05-04] MEDS: ferrous sulfate 325mg tablet PO SCH ×2 (09:24→20:08)
[2019-05-04] MEDS: valproic acid 250mg capsule PO SCH ×2 (09:24→20:08)
[2019-05-04] MEDS: pantoprazole 40mg Tablet.DR PO SCH ×2 (09:24→17:30)
[2019-05-04] MEDS: aripiprazole 5mg tablet PO SCH (09:24)
[2019-05-04] MEDS: metoprolol succinate 25mg (24-HOUR) SR. Tablet PO SCH (09:24)
[2019-05-04] MEDS: aspirin 81mg tablet.DR PO SCH (09:25)
[2019-05-04] MEDS: levoTHYROXINE 25mcg tablet PO SCH (09:25)
[2019-05-04] MEDS: pyridoxine 50mg tablet PO SCH (09:25)
[2019-05-04 10:00] VITALS: BP 110/58
[2019-05-04 17:49] VITALS: BP 110/60
--- NOTE | 2019-05-04 18:15 | NUR ---
Problems reprioritized. Patient report given, questions answered & plan of care reviewed with JHOAN Garcia.
--- NOTE | 2019-05-04 18:20 | NUR ---
Patient in room [facility]TH[facility] 4011. I have received report from JHOAN Patel and had the opportunity to ask questions and assume patient care. Patient is sitting up in bed calmly talking with charge JHOAN Castillo. Dinner just arrived and patient is cooperative and pleasant at this time. I will continue to monitor.
[2019-05-04] MEDS: HYDROcodone/acetaminophen 5mg/325mg tablet PO PRN (19:41)
[2019-05-04] MEDS: polyethylene glycol 3350 17gm powd pack PO SCH (20:12)
[2019-05-04] MEDS: quetiapine 100mg tablet PO SCH (21:28)
--- NOTE | 2019-05-05 06:35 | NUR ---
Problems reprioritized. Patient report given, questions answered & plan of care reviewed with JHOAN Patel.
[2019-05-05] MEDS: metoprolol succinate 25mg (24-HOUR) SR. Tablet PO SCH (08:44)
[2019-05-05] MEDS: docusate sod 100mg capsule PO SCH ×2 (08:44→21:10)
[2019-05-05] MEDS: ferrous sulfate 325mg tablet PO SCH ×2 (08:44→21:10)
[2019-05-05] MEDS: aspirin 81mg tablet.DR PO SCH (08:44)
[2019-05-05] MEDS: pyridoxine 50mg tablet PO SCH (08:44)
[2019-05-05] MEDS: pantoprazole 40mg Tablet.DR PO SCH ×2 (08:45→17:30)
[2019-05-05] MEDS: valproic acid 250mg capsule PO SCH ×2 (08:46→21:10)
[2019-05-05] MEDS: levoTHYROXINE 25mcg tablet PO SCH (08:46)
[2019-05-05] MEDS: aripiprazole 5mg tablet PO SCH (08:46)
[2019-05-05 10:00] VITALS: BP 94/53
--- NOTE | 2019-05-05 13:29 | NUR ---
Per pt's primary RN, pt had no new breakdown to be noted. WOC will continue to follow
[2019-05-05 18:00] VITALS: BP 110/67
--- NOTE | 2019-05-05 18:05 | NUR ---
houry rounding notes on wrong pt. supposed to be for 10A. This pt is not on comfort care.
--- NOTE | 2019-05-05 19:00 | NUR ---
Patient in room [facility]TH[facility] 4011. I have received report from Amanda STAPLES and had the opportunity to ask questions and assume patient care. Pt resting comfortably in bed watching tv
[2019-05-05] MEDS: quetiapine 100mg tablet PO SCH (21:09)
[2019-05-05] MEDS: fluvoxamine 25 MG tablet PO SCH (21:09)
[2019-05-05] MEDS: polyethylene glycol 3350 17gm powd pack PO SCH (21:10)
[2019-05-05] MEDS: HYDROcodone/acetaminophen 10/325mg tab PO PRN (21:14)
--- NOTE | 2019-05-06 06:14 | NUR ---
Problems reprioritized. Patient report given, questions answered & plan of care reviewed with Amanda STAPLES.
[2019-05-06] MEDS: docusate sod 100mg capsule PO SCH ×2 (08:00→20:28)
[2019-05-06] MEDS: fluvoxamine 25 MG tablet PO SCH ×2 (08:37→20:27)
[2019-05-06] MEDS: pantoprazole 40mg Tablet.DR PO SCH ×2 (08:37→18:15)
[2019-05-06] MEDS: aspirin 81mg tablet.DR PO SCH (08:37)
[2019-05-06] MEDS: ferrous sulfate 325mg tablet PO SCH ×2 (08:37→20:28)
[2019-05-06] MEDS: aripiprazole 5mg tablet PO SCH (08:37)
[2019-05-06] MEDS: valproic acid 250mg capsule PO SCH ×2 (08:37→20:28)
[2019-05-06] MEDS: pyridoxine 50mg tablet PO SCH (08:38)
[2019-05-06] MEDS: levoTHYROXINE 25mcg tablet PO SCH (08:38)
[2019-05-06] MEDS: metoprolol succinate 25mg (24-HOUR) SR. Tablet PO SCH (08:39)
[2019-05-06 08:42] VITALS: BP 137/71
[2019-05-06 18:00] VITALS: BP 111/58
--- NOTE | 2019-05-06 18:00 | NUR ---
Received report from Amanda STAPLES. Assumed care of patient.
--- NOTE | 2019-05-06 18:59 | NUR ---
Problems reprioritized. Patient report given, questions answered & plan of care reviewed with JHOAN Norris.
[2019-05-06] MEDS: quetiapine 100mg tablet PO SCH (20:27)
[2019-05-06] MEDS: polyethylene glycol 3350 17gm powd pack PO SCH (20:27)
[2019-05-06] MEDS: LORazepam 1 MG tablet PO PRN (21:00)
--- NOTE | 2019-05-07 06:35 | NUR ---
Gave report to Marine STAPLES.
[2019-05-07] MEDS: metoprolol succinate 25mg (24-HOUR) SR. Tablet PO SCH (08:00)
[2019-05-07] MEDS: ferrous sulfate 325mg tablet PO SCH ×2 (09:43→20:09)
[2019-05-07] MEDS: pantoprazole 40mg Tablet.DR PO SCH ×2 (09:43→18:10)
[2019-05-07] MEDS: pyridoxine 50mg tablet PO SCH (09:43)
[2019-05-07] MEDS: docusate sod 100mg capsule PO SCH ×2 (09:43→20:09)
[2019-05-07] MEDS: valproic acid 250mg capsule PO SCH ×2 (09:43→20:09)
[2019-05-07] MEDS: fluvoxamine 25 MG tablet PO SCH ×2 (09:43→20:09)
[2019-05-07] MEDS: aspirin 81mg tablet.DR PO SCH (09:44)
[2019-05-07] MEDS: aripiprazole 5mg tablet PO SCH (09:44)
[2019-05-07] MEDS: levoTHYROXINE 25mcg tablet PO SCH (09:44)
[2019-05-07 10:00] VITALS: BP 99/55
[2019-05-07 18:00] VITALS: BP 128/71
--- NOTE | 2019-05-07 18:50 | NUR ---
Patient in room [facility]TH[facility] 4011. I have received report from JHOAN Hawthorne and had the opportunity to ask questions and assume patient care.
[2019-05-07] MEDS: quetiapine 100mg tablet PO SCH (20:09)
[2019-05-07] MEDS: polyethylene glycol 3350 17gm powd pack PO SCH (20:09)
[2019-05-07 22:00] VITALS: BP 153/75
[2019-05-08 06:00] VITALS: BP 100/52
--- NOTE | 2019-05-08 06:40 | NUR ---
Problems reprioritized. Patient report given, questions answered & plan of care reviewed with JHOAN Hawthorne.
[2019-05-08] MEDS: metoprolol succinate 25mg (24-HOUR) SR. Tablet PO SCH (08:00)
[2019-05-08] MEDS: aripiprazole 5mg tablet PO SCH (09:49)
[2019-05-08] MEDS: pantoprazole 40mg Tablet.DR PO SCH ×3 (09:49→17:53)
[2019-05-08] MEDS: docusate sod 100mg capsule PO SCH ×2 (09:49→20:05)
[2019-05-08] MEDS: valproic acid 250mg capsule PO SCH ×2 (09:50→20:05)
[2019-05-08] MEDS: aspirin 81mg tablet.DR PO SCH (09:50)
[2019-05-08] MEDS: ferrous sulfate 325mg tablet PO SCH ×3 (09:50→20:05)
[2019-05-08] MEDS: fluvoxamine 25 MG tablet PO SCH ×2 (09:51→20:05)
[2019-05-08] MEDS: levoTHYROXINE 25mcg tablet PO SCH (09:51)
[2019-05-08] MEDS: pyridoxine 50mg tablet PO SCH (09:51)
[2019-05-08 10:00] VITALS: BP 111/58
[2019-05-08] MEDS: acetaminophen 325mg/10.15ml oral unit dose solution PO PRN (10:11)
[2019-05-08] MEDS: LORazepam 1 MG tablet PO PRN ×2 (17:53→20:05)
[2019-05-08 18:00] VITALS: BP 144/76
--- NOTE | 2019-05-08 19:30 | NUR ---
Patient refusing assessment. States "get away from me, you bitch". Tried to calm her down and offer assistance. She was screaming at nursing staff and carrying on about how we need to get away from her. She was assisted in to the bathroom by staff.
[2019-05-08] MEDS: quetiapine 100mg tablet PO SCH ×2 (20:05→20:57)
[2019-05-08] MEDS: polyethylene glycol 3350 17gm powd pack PO SCH (20:14)
--- NOTE | 2019-05-08 20:30 | NUR ---
Patient took medication from me after selecting a few and taking them out of the cup. (seroquel and iron). Ativan was administered with the meds. Patient was hoarding a permanent marker in her pocket and some wipes in her bed. Will take away after patient calms down. Nurse, Dalia, coaxed her in to taking her seroquel.
[2019-05-08 22:00] VITALS: BP 112/57
[2019-05-09 06:00] VITALS: BP 125/71
--- NOTE | 2019-05-09 06:22 | NUR ---
Problems reprioritized. Patient report given, questions answered & plan of care reviewed with JHOAN Hawthorne.
[2019-05-09 10:00] VITALS: BP 90/46
[2019-05-09] MEDS: pantoprazole 40mg Tablet.DR PO SCH ×2 (10:18→19:57)
[2019-05-09] MEDS: docusate sod 100mg capsule PO SCH ×2 (10:19→19:55)
[2019-05-09] MEDS: aripiprazole 5mg tablet PO SCH (10:19)
[2019-05-09] MEDS: fluvoxamine 25 MG tablet PO SCH ×2 (10:20→19:57)
[2019-05-09] MEDS: aspirin 81mg tablet.DR PO SCH (10:20)
[2019-05-09] MEDS: levoTHYROXINE 25mcg tablet PO SCH (10:20)
[2019-05-09] MEDS: valproic acid 250mg capsule PO SCH ×2 (10:20→19:55)
[2019-05-09] MEDS: ferrous sulfate 325mg tablet PO SCH ×2 (10:20→19:56)
[2019-05-09] MEDS: pyridoxine 50mg tablet PO SCH (10:21)
[2019-05-09] MEDS: LORazepam 1 MG tablet PO PRN ×2 (10:21→19:57)
[2019-05-09] MEDS: metoprolol tartrate 12.5mg (1/2 tablet) PO SCH ×2 (14:08→19:56)
[2019-05-09 18:00] VITALS: BP 136/74
[2019-05-09] MEDS: quetiapine 100mg tablet PO SCH (19:55)
[2019-05-09] MEDS: polyethylene glycol 3350 17gm powd pack PO SCH (19:57)
[2019-05-09] MEDS ORDERED: metoprolol tartrate 12.5mg (1/2 tablet) PO SCH (20:00)
[2019-05-10 06:00] VITALS: BP 91/48
--- NOTE | 2019-05-10 06:16 | NUR ---
received report from blanca mcgovern
--- NOTE | 2019-05-10 06:21 | NUR ---
Problems reprioritized. Patient report given, questions answered & plan of care reviewed with JHOAN Obrien.
[2019-05-10] MEDS: pyridoxine 50mg tablet PO SCH (07:14)
[2019-05-10] MEDS: fluvoxamine 25 MG tablet PO SCH ×2 (07:15→21:16)
[2019-05-10] MEDS: levoTHYROXINE 25mcg tablet PO SCH (07:15)
[2019-05-10] MEDS: docusate sod 100mg capsule PO SCH ×2 (07:16→21:15)
[2019-05-10] MEDS: valproic acid 250mg capsule PO SCH ×2 (07:17→21:15)
[2019-05-10] MEDS: aspirin 81mg tablet.DR PO SCH (07:17)
[2019-05-10] MEDS: metoprolol tartrate 12.5mg (1/2 tablet) PO SCH ×2 (07:18→21:42)
[2019-05-10] MEDS: ferrous sulfate 325mg tablet PO SCH ×2 (07:18→21:15)
[2019-05-10] MEDS: aripiprazole 5mg tablet PO SCH (07:19)
[2019-05-10] MEDS: pantoprazole 40mg Tablet.DR PO SCH ×2 (07:19→17:07)
[2019-05-10 10:00] VITALS: BP 96/62
--- NOTE | 2019-05-10 16:51 | NUR ---
pt has been pleasant all day and just now pt is refusing to let certain nursing staff help, pt all of a sudden is accusing staff of saying 'dirty jap' outside her door, nursing staff attempted to calm pt down, pt also said 'i know farhana sotomayor do and i will kick your ass', nursing staff is letting patient calm down and is monitoring pt at a distance since pt is a fall risk when looking back at the situation nursing staff confirmed that all staff were in other rooms assisting patients and that no one told her the things she is professing, continue to monitor
[2019-05-10 18:00] VITALS: BP 149/78
--- NOTE | 2019-05-10 18:44 | NUR ---
gave report to blanca mojica
--- NOTE | 2019-05-10 18:45 | NUR ---
Patient in room ORTHO 4011. I have received report from Camille STAPLES and had the opportunity to ask questions and assume patient care.
[2019-05-10] MEDS: quetiapine 100mg tablet PO SCH (21:15)
[2019-05-10] MEDS: polyethylene glycol 3350 17gm powd pack PO SCH (21:16)
[2019-05-10 22:00] VITALS: BP 167/88
[2019-05-11] MEDS: HYDROcodone/acetaminophen 5mg/325mg tablet PO PRN (00:46)
--- NOTE | 2019-05-11 06:18 | NUR ---
received report from blanca mojica
--- NOTE | 2019-05-11 06:22 | NUR ---
Problems reprioritized. Patient report given, questions answered & plan of care reviewed with Camille STAPLES.
[2019-05-11] MEDS: ferrous sulfate 325mg tablet PO SCH ×2 (07:49→21:18)
[2019-05-11] MEDS: aspirin 81mg tablet.DR PO SCH (07:49)
[2019-05-11] MEDS: valproic acid 250mg capsule PO SCH ×2 (07:50→21:19)
[2019-05-11] MEDS: pyridoxine 50mg tablet PO SCH (07:51)
[2019-05-11] MEDS: metoprolol tartrate 12.5mg (1/2 tablet) PO SCH ×2 (07:52→21:19)
[2019-05-11] MEDS: aripiprazole 5mg tablet PO SCH (07:52)
[2019-05-11] MEDS: levoTHYROXINE 25mcg tablet PO SCH (07:53)
[2019-05-11] MEDS: fluvoxamine 25 MG tablet PO SCH ×2 (07:53→21:19)
[2019-05-11] MEDS: pantoprazole 40mg Tablet.DR PO SCH ×2 (07:54→17:18)
[2019-05-11] MEDS: docusate sod 100mg capsule PO SCH ×2 (07:57→20:00)
[2019-05-11 10:00] VITALS: BP 132/63
--- NOTE | 2019-05-11 12:37 | NUR ---
reassessment: Pt PO 75-100% average PO intake, meeting needs. LBM 05/09. No nutrition concerns at this time. Awaiting placement. Will continue to monitor. Recommend: 1. Continue pureed food with nectar thick liquids per THERMODYNAMICS PROFESSOR recs 2. Double proteins TID 3. Routine bowel care 4. Vitamin D per s/p hip fx and receiving valproic acid HS 5. wt per rx Addendum: 05/11/19 at [address] Amended: Links added.
[2019-05-11] MEDS: HYDROcodone/acetaminophen 10/325mg tab PO PRN (17:18)
--- NOTE | 2019-05-11 17:50 | NUR ---
gave report to december,
[2019-05-11 18:30] VITALS: BP 129/72
[2019-05-11] MEDS: polyethylene glycol 3350 17gm powd pack PO SCH (21:00)
[2019-05-11] MEDS: quetiapine 100mg tablet PO SCH (21:18)
[2019-05-11 22:00] VITALS: BP 135/65
[2019-05-12] MEDS: HYDROcodone/acetaminophen 10/325mg tab PO PRN ×2 (00:18→04:47)
[2019-05-12 05:00] VITALS: BP 136/61
--- NOTE | 2019-05-12 06:41 | NUR ---
Received report from Michelle RN
[2019-05-12] MEDS: docusate sod 100mg capsule PO SCH ×2 (07:48→20:31)
[2019-05-12] MEDS: aripiprazole 5mg tablet PO SCH (07:48)
[2019-05-12] MEDS: ferrous sulfate 325mg tablet PO SCH ×2 (07:48→20:32)
[2019-05-12] MEDS: valproic acid 250mg capsule PO SCH ×2 (07:48→20:31)
[2019-05-12] MEDS: aspirin 81mg tablet.DR PO SCH (07:48)
[2019-05-12] MEDS: pantoprazole 40mg Tablet.DR PO SCH ×2 (07:48→17:30)
[2019-05-12] MEDS: fluvoxamine 25 MG tablet PO SCH ×2 (07:49→20:31)
[2019-05-12] MEDS: pyridoxine 50mg tablet PO SCH (07:49)
[2019-05-12] MEDS: metoprolol tartrate 12.5mg (1/2 tablet) PO SCH ×2 (07:50→20:00)
[2019-05-12] MEDS: levoTHYROXINE 25mcg tablet PO SCH (07:52)
[2019-05-12 10:00] VITALS: BP 87/51
--- NOTE | 2019-05-12 18:20 | NUR ---
Patient in room [facility]TH[facility] 4008. I have received report from Kelly STAPLES and had the opportunity to ask questions and assume patient care.
[2019-05-12 20:30] VITALS: BP 98/47
[2019-05-12] MEDS: quetiapine 100mg tablet PO SCH (20:32)
[2019-05-12] MEDS: polyethylene glycol 3350 17gm powd pack PO SCH (20:44)
[2019-05-12 22:00] VITALS: BP 129/79
--- NOTE | 2019-05-13 06:13 | NUR ---
Problems reprioritized. Patient report given, questions answered & plan of care reviewed with Harshil STAPLES.
--- NOTE | 2019-05-13 06:50 | NUR ---
Patient in room ORTH[facility] 4008. I have received report from Francie STAPLES and had the opportunity to ask questions and assume patient care.
[2019-05-13] MEDS: pantoprazole 40mg Tablet.DR PO SCH ×2 (07:42→17:23)
[2019-05-13] MEDS: valproic acid 250mg capsule PO SCH ×2 (09:00→20:18)
[2019-05-13] MEDS: aripiprazole 5mg tablet PO SCH (09:00)
[2019-05-13] MEDS: pyridoxine 50mg tablet PO SCH (09:03)
[2019-05-13] MEDS: levoTHYROXINE 25mcg tablet PO SCH (09:03)
[2019-05-13] MEDS: docusate sod 100mg capsule PO SCH ×2 (09:03→20:00)
[2019-05-13] MEDS: ferrous sulfate 325mg tablet PO SCH ×2 (09:04→20:17)
[2019-05-13] MEDS: fluvoxamine 25 MG tablet PO SCH ×2 (09:04→20:18)
[2019-05-13] MEDS: aspirin 81mg tablet.DR PO SCH (09:04)
[2019-05-13] MEDS: metoprolol tartrate 12.5mg (1/2 tablet) PO SCH ×2 (09:05→20:00)
[2019-05-13 10:00] VITALS: BP 107/56
[2019-05-13 18:00] VITALS: BP 101/58
--- NOTE | 2019-05-13 18:41 | NUR ---
Problems reprioritized. Patient report given, questions answered & plan of care reviewed with LYDIA STAPLES.
[2019-05-13] MEDS: quetiapine 100mg tablet PO SCH (20:18)
[2019-05-13] MEDS: polyethylene glycol 3350 17gm powd pack PO SCH (21:00)
--- NOTE | 2019-05-14 06:00 | NUR ---
Patient in room ORTH[facility] 4008. I have received report from LYDIA STAPLES and had the opportunity to ask questions and assume patient care.
--- NOTE | 2019-05-14 06:45 | NUR ---
Patient in room ORTH[facility] 4008. I have received report from Lily STAPLES and had the opportunity to ask questions and assume patient care.
[2019-05-14 08:00] VITALS: BP 119/72
[2019-05-14] MEDS: levoTHYROXINE 25mcg tablet PO SCH (08:06)
[2019-05-14] MEDS: aripiprazole 5mg tablet PO SCH (08:06)
[2019-05-14] MEDS: fluvoxamine 25 MG tablet PO SCH ×2 (08:07→20:32)
[2019-05-14] MEDS: docusate sod 100mg capsule PO SCH ×2 (08:07→20:34)
[2019-05-14] MEDS: valproic acid 250mg capsule PO SCH ×2 (08:07→20:33)
[2019-05-14] MEDS: LORazepam 1 MG tablet PO PRN (08:07)
[2019-05-14] MEDS: pantoprazole 40mg Tablet.DR PO SCH ×2 (08:07→17:14)
[2019-05-14] MEDS: aspirin 81mg tablet.DR PO SCH (08:07)
[2019-05-14] MEDS: pyridoxine 50mg tablet PO SCH (08:07)
[2019-05-14] MEDS: ferrous sulfate 325mg tablet PO SCH ×2 (08:07→20:34)
[2019-05-14] MEDS: metoprolol tartrate 12.5mg (1/2 tablet) PO SCH ×2 (08:08→20:38)
[2019-05-14 10:00] VITALS: BP 103/58
--- NOTE | 2019-05-14 17:57 | NUR ---
I AGREE WITH MY PRECEPTEE HARLEEN STAPLES'S CHARTING.
[2019-05-14 18:00] VITALS: BP 141/74
--- NOTE | 2019-05-14 18:00 | NUR ---
Received report from Alejandro STAPLES. assumed care of patient.
--- NOTE | 2019-05-14 18:13 | NUR ---
Problems reprioritized. Patient report given, questions answered & plan of care reviewed with Myrna RN.
[2019-05-14] MEDS: polyethylene glycol 3350 17gm powd pack PO SCH (20:32)
[2019-05-14] MEDS: quetiapine 100mg tablet PO SCH (20:34)
[2019-05-14 22:00] VITALS: BP 123/77
[2019-05-14] MEDS: HYDROcodone/acetaminophen 10/325mg tab PO PRN (22:39)
[2019-05-15 06:00] VITALS: BP 97/58
--- NOTE | 2019-05-15 06:00 | NUR ---
Gave report to Alejandro STAPLES.
--- NOTE | 2019-05-15 06:00 | NUR ---
Patient in room [facility]TH[facility] 4008. I have received report from DANICA STAPLES and had the opportunity to ask questions and assume patient care.
--- NOTE | 2019-05-15 06:23 | NUR ---
Patient in room [facility]TH[facility] 4008. I have received report from Myrna STAPLES and had the opportunity to ask questions and assume patient care.
[2019-05-15] MEDS: fluvoxamine 25 MG tablet PO SCH ×2 (07:23→20:17)
[2019-05-15] MEDS: aripiprazole 5mg tablet PO SCH (07:23)
[2019-05-15] MEDS: ferrous sulfate 325mg tablet PO SCH ×2 (07:23→20:17)
[2019-05-15] MEDS: pantoprazole 40mg Tablet.DR PO SCH ×2 (07:23→17:11)
[2019-05-15] MEDS: metoprolol tartrate 12.5mg (1/2 tablet) PO SCH ×2 (07:24→20:21)
[2019-05-15] MEDS: aspirin 81mg tablet.DR PO SCH (07:24)
[2019-05-15] MEDS: valproic acid 250mg capsule PO SCH ×2 (07:25→20:17)
[2019-05-15] MEDS: docusate sod 100mg capsule PO SCH ×2 (07:25→20:17)
[2019-05-15] MEDS: pyridoxine 50mg tablet PO SCH (07:25)
[2019-05-15] MEDS: levoTHYROXINE 25mcg tablet PO SCH (07:29)
[2019-05-15 10:00] VITALS: BP 109/72
[2019-05-15] MEDS: LORazepam 1 MG tablet PO PRN (17:11)
[2019-05-15 18:00] VITALS: BP 143/97
--- NOTE | 2019-05-15 18:00 | NUR ---
Received report from Brea STAPLES & Jeff STAPLES. assumed care of patient.
--- NOTE | 2019-05-15 18:12 | NUR ---
Problems reprioritized. Patient report given, questions answered & plan of care reviewed with Myrna RN.
--- NOTE | 2019-05-15 18:12 | NUR ---
I AGREE WITH MY PRECEPTOR HARLEEN STAPLES'S CHARTING.
[2019-05-15] MEDS: quetiapine 100mg tablet PO SCH (20:17)
[2019-05-15] MEDS: polyethylene glycol 3350 17gm powd pack PO SCH (20:18)
[2019-05-15 22:00] VITALS: BP 134/77
--- NOTE | 2019-05-16 06:00 | NUR ---
Gave report to Brea STAPLES & Jeff STAPLES.
--- NOTE | 2019-05-16 06:31 | NUR ---
Patient in room [facility]TH[facility] 4008. I have received report from Myrna STAPLES and had the opportunity to ask questions and assume patient care.
[2019-05-16] MEDS: ferrous sulfate 325mg tablet PO SCH ×2 (08:03→21:07)
[2019-05-16] MEDS: pantoprazole 40mg Tablet.DR PO SCH ×2 (08:03→17:30)
[2019-05-16] MEDS: levoTHYROXINE 25mcg tablet PO SCH (08:04)
[2019-05-16] MEDS: aripiprazole 5mg tablet PO SCH (08:04)
[2019-05-16] MEDS: valproic acid 250mg capsule PO SCH ×2 (08:04→21:06)
[2019-05-16] MEDS: aspirin 81mg tablet.DR PO SCH (08:04)
[2019-05-16] MEDS: fluvoxamine 25 MG tablet PO SCH ×2 (08:04→21:07)
[2019-05-16] MEDS: docusate sod 100mg capsule PO SCH ×2 (08:04→21:05)
[2019-05-16] MEDS: pyridoxine 50mg tablet PO SCH (08:05)
[2019-05-16] MEDS: metoprolol tartrate 12.5mg (1/2 tablet) PO SCH ×2 (08:08→21:07)
[2019-05-16 10:00] VITALS: BP 130/76
--- NOTE | 2019-05-16 11:45 | NUR ---
TOOK PATIENT OUTSIDE IN WHEELCHAIR FOR 15 MINUTES. TOLERATED WELL.
--- NOTE | 2019-05-16 17:48 | NUR ---
I AGREE WITH MY PRECEPTEE HARLEEN STAPLES'S CHARTING.
[2019-05-16 18:00] VITALS: BP 126/68
--- NOTE | 2019-05-16 18:44 | NUR ---
Patient in room [facility]TH[facility] 4008. I have received report from Jeff STAPLES with Brea STAPLES and had the opportunity to ask questions and assume patient care.
--- NOTE | 2019-05-16 18:44 | NUR ---
Problems reprioritized. Patient report given, questions answered & plan of care reviewed with Mary STAPLES.
[2019-05-16] MEDS: polyethylene glycol 3350 17gm powd pack PO SCH (21:00)
[2019-05-16] MEDS: quetiapine 100mg tablet PO SCH (21:07)
[2019-05-16 21:59] VITALS: BP 135/76
[2019-05-17] MEDS: HYDROcodone/acetaminophen 10/325mg tab PO PRN (00:32)
[2019-05-17] MEDS: LORazepam 1 MG tablet PO PRN (01:34)
[2019-05-17 06:00] VITALS: BP 102/68
--- NOTE | 2019-05-17 06:38 | NUR ---
Problems reprioritized. Patient report given, questions answered & plan of care reviewed with Alexandra STAPLES.
[2019-05-17 09:12] LABS: BASOPHILS % (AUTO) 0.9 % (0-1); EOSINOPHILS # (AUTO) 0.2 X10'3 (0-0.9); EOSINOPHILS % (AUTO) 4.3 % (0-6); HEMATOCRIT 36.2 % (35.0-45.0); HEMOGLOBIN 12.3 g/dl (12.0-16.0); LYMPHOCYTES # (AUTO) 2.4 X10'3 (1.1-4.8); LYMPHOCYTES % (AUTO) 45.7 % (21-51); MEAN CORPUSCULAR HEMOGLOBIN 33.4 PG (27.0-31.0); MEAN CORPUSCULAR HGB CONC 34.1 g/dL (33.0-36.5); MEAN CORPUSCULAR VOLUME 98.1 FL (78-98); MEAN PLATELET VOLUME 7.6 FL (7.4-10.4); MONOCYTES # (AUTO) 0.5 X10'3 (0-0.9); MONOCYTES % (AUTO) 8.7 % (2-12); NEUTROPHILS # (AUTO) 2.2 X10'3 (1.8-7.7); NEUTROPHILS % (AUTO) 40.4 % (42-75); PLATELET COUNT 251 X10'3 (140-440); RED BLOOD COUNT 3.69 X10'6 (4.20-5.60); RED CELL DISTRIBUTION WIDTH 14.4 % (11.5-14.5); WHITE BLOOD COUNT 5.3 X10'3 (4.5-11.0)
[2019-05-17 09:27] LABS: ALANINE AMINOTRANSFERASE 12 U/L (12-78); ALBUMIN 2.8 G/DL (3.4-5.0); ALBUMIN/GLOBULIN RATIO 0.6 (1.1-1.5); ALKALINE PHOSPHATASE 95 IU/L (46-116); ANION GAP 5 (8-16); ASPARTATE AMINO TRANSFERASE 15 U/L (10-37); BILIRUBIN,TOTAL 0.2 MG/DL (0.1-1.0); BLOOD UREA NITROGEN 10 MG/DL (7-18); CHLORIDE 98 MMOL/L (99-107); GLUCOSE 99 MG/DL (70-104); POTASSIUM 3.8 MMOL/L (3.5-5.1); SODIUM 133 MMOL/L (135-145); TOTAL CARBON DIOXIDE 30.5 MMOL/L (24-32); TOTAL PROTEIN 7.2 G/DL (6.4-8.2); eGFR > 90 ML/MIN
[2019-05-17] MEDS: pantoprazole 40mg Tablet.DR PO SCH ×2 (09:30→17:19)
[2019-05-17] MEDS: docusate sod 100mg capsule PO SCH ×2 (09:31→19:43)
[2019-05-17] MEDS: aripiprazole 5mg tablet PO SCH (09:31)
[2019-05-17] MEDS: valproic acid 250mg capsule PO SCH ×2 (09:32→19:46)
[2019-05-17] MEDS: aspirin 81mg tablet.DR PO SCH (09:32)
[2019-05-17] MEDS: fluvoxamine 25 MG tablet PO SCH ×2 (09:33→19:44)
[2019-05-17] MEDS: ferrous sulfate 325mg tablet PO SCH ×2 (09:33→19:43)
[2019-05-17] MEDS: pyridoxine 50mg tablet PO SCH (09:36)
[2019-05-17] MEDS: levoTHYROXINE 25mcg tablet PO SCH (09:36)
[2019-05-17] MEDS: metoprolol tartrate 12.5mg (1/2 tablet) PO SCH ×2 (09:38→19:43)
[2019-05-17 10:00] VITALS: BP 137/69
--- NOTE | 2019-05-17 12:26 | NUR ---
reassessment: Pt PO 75-100% average PO intake, meeting needs. LBM 05/16. No nutrition concerns at this time. Awaiting placement. Will continue to monitor. Recommend: 1. Continue pureed food with nectar thick liquids per LUMBER SALVAGER recs 2. Double proteins TID 3. Routine bowel care 4. Vitamin D per s/p hip fx and receiving valproic acid HS 5. wt per rx Addendum: 05/17/19 at [address] Amended: Links added.
[2019-05-17 18:00] VITALS: BP 111/74
--- NOTE | 2019-05-17 18:58 | NUR ---
Report rec'd from blanca Morris.
[2019-05-17] MEDS: polyethylene glycol 3350 17gm powd pack PO SCH (19:43)
[2019-05-17] MEDS: quetiapine 100mg tablet PO SCH (19:44)
--- NOTE | 2019-05-18 06:03 | NUR ---
Report given to blanca Morris.
[2019-05-18] MEDS: pantoprazole 40mg Tablet.DR PO SCH ×2 (09:01→16:52)
[2019-05-18] MEDS: aripiprazole 5mg tablet PO SCH (09:01)
[2019-05-18] MEDS: valproic acid 250mg capsule PO SCH ×2 (09:02→20:17)
[2019-05-18] MEDS: docusate sod 100mg capsule PO SCH ×2 (09:02→20:00)
[2019-05-18] MEDS: fluvoxamine 25 MG tablet PO SCH ×2 (09:03→20:16)
[2019-05-18] MEDS: aspirin 81mg tablet.DR PO SCH (09:03)
[2019-05-18] MEDS: ferrous sulfate 325mg tablet PO SCH ×2 (09:03→20:16)
[2019-05-18] MEDS: levoTHYROXINE 25mcg tablet PO SCH (09:04)
[2019-05-18] MEDS: metoprolol tartrate 12.5mg (1/2 tablet) PO SCH ×2 (09:04→20:17)
[2019-05-18] MEDS: pyridoxine 50mg tablet PO SCH (09:05)
[2019-05-18 18:00] VITALS: BP 120/69
--- NOTE | 2019-05-18 18:37 | NUR ---
Report rec'd from blanca Morris.
[2019-05-18] MEDS: quetiapine 100mg tablet PO SCH (20:18)
[2019-05-18] MEDS: polyethylene glycol 3350 17gm powd pack PO SCH (20:19)
--- NOTE | 2019-05-18 23:07 | NUR ---
pt has prolapsed anus, and is psychiatric pt with obsessive compulsive issues with wiping, etc. She has daily orders for colace and miralax to keep stool soft, but is having clear fluid with "soap suds" consistency output in toilet, lots of gas and bubbles. Addendum: 05/18/19 at 2313 by Anali Santoro RN Amended: Links added.
--- NOTE | 2019-05-19 06:06 | NUR ---
Report given to blanca Smith.
--- NOTE | 2019-05-19 06:10 | NUR ---
Patient in room [facility]TH[facility] 4008. I have received report from Anali STAPLES and had the opportunity to ask questions and assume patient care.
[2019-05-19] MEDS: pantoprazole 40mg Tablet.DR PO SCH ×2 (07:30→17:30)
[2019-05-19 08:00] VITALS: BP 106/62
[2019-05-19] MEDS: metoprolol tartrate 12.5mg (1/2 tablet) PO SCH ×2 (08:00→20:27)
[2019-05-19] MEDS: valproic acid 250mg capsule PO SCH ×2 (08:53→20:27)
[2019-05-19] MEDS: aripiprazole 5mg tablet PO SCH (08:56)
[2019-05-19] MEDS: docusate sod 100mg capsule PO SCH ×2 (08:56→20:27)
[2019-05-19] MEDS: levoTHYROXINE 25mcg tablet PO SCH (08:57)
[2019-05-19] MEDS: ferrous sulfate 325mg tablet PO SCH ×2 (08:57→20:27)
[2019-05-19] MEDS: aspirin 81mg tablet.DR PO SCH (08:57)
[2019-05-19] MEDS: fluvoxamine 25 MG tablet PO SCH ×2 (08:57→20:27)
[2019-05-19] MEDS: pyridoxine 50mg tablet PO SCH (08:57)
[2019-05-19 10:00] VITALS: BP 118/60
[2019-05-19] MEDS: HYDROcodone/acetaminophen 10/325mg tab PO PRN (14:38)
[2019-05-19 18:00] VITALS: BP 126/71
--- NOTE | 2019-05-19 18:21 | NUR ---
Problems reprioritized. Patient report given, questions answered & plan of care reviewed with Anali STAPLES.
--- NOTE | 2019-05-19 19:13 | NUR ---
Patient in room ORTH[facility] 4008. I have received report from Media and had the opportunity to ask questions and assume patient care.
--- NOTE | 2019-05-19 19:13 | NUR ---
REPORT REC'D FROM JHOAN HARMON.
[2019-05-19] MEDS: quetiapine 100mg tablet PO SCH (20:27)
--- NOTE | 2019-05-19 20:40 | NUR ---
SEE medication note. pt refused one capsule of her depakene.
[2019-05-19] MEDS: polyethylene glycol 3350 17gm powd pack PO SCH (21:00)
--- NOTE | 2019-05-20 02:01 | NUR ---
PT REFUSED VS. Addendum: 05/20/19 at 0201 by Anali Santoro RN Amended: Links added.
--- NOTE | 2019-05-20 06:20 | NUR ---
Patient in room [facility]TH[facility] 4008. I have received report from Anali STAPLES and had the opportunity to ask questions and assume patient care.
--- NOTE | 2019-05-20 06:35 | NUR ---
Report given to blanca Smith.
[2019-05-20] MEDS: metoprolol tartrate 12.5mg (1/2 tablet) PO SCH ×2 (08:00→20:00)
[2019-05-20] MEDS: ferrous sulfate 325mg tablet PO SCH ×2 (08:34→23:18)
[2019-05-20] MEDS: aripiprazole 5mg tablet PO SCH (08:34)
[2019-05-20] MEDS: docusate sod 100mg capsule PO SCH ×2 (08:34→23:18)
[2019-05-20] MEDS: valproic acid 250mg capsule PO SCH ×2 (08:34→23:17)
[2019-05-20] MEDS: aspirin 81mg tablet.DR PO SCH (08:34)
[2019-05-20] MEDS: levoTHYROXINE 25mcg tablet PO SCH (08:34)
[2019-05-20] MEDS: pyridoxine 50mg tablet PO SCH (08:34)
[2019-05-20] MEDS: fluvoxamine 25 MG tablet PO SCH ×2 (08:35→23:18)
[2019-05-20] MEDS: pantoprazole 40mg Tablet.DR PO SCH ×2 (08:35→17:30)
--- NOTE | 2019-05-20 11:26 | NUR ---
Just saw pt yesterday for fingernail and toenail trimming. Spoke with primary RN regarding skin condition and if any new breakdown was noted. Nurse just reported that pt's prolapsed rectum periodically causes some bleeding, but has been present entire admission and Drs are aware. No other issues noted. Will continue to follow.
--- NOTE | 2019-05-20 17:47 | NUR ---
Patient has been refusing all vital signs today. Educated on importance of vital signs checks, but patient still refused. Patient is resting comfortably, no apparent distress noted
--- NOTE | 2019-05-20 18:11 | NUR ---
Problems reprioritized. Patient report given, questions answered & plan of care reviewed with Rhina STAPLES.
[2019-05-20] MEDS: polyethylene glycol 3350 17gm powd pack PO SCH (21:00)
[2019-05-20] MEDS: quetiapine 100mg tablet PO SCH (23:16)
[2019-05-21] MEDS: pantoprazole 40mg Tablet.DR PO SCH ×2 (08:27→17:31)
[2019-05-21] MEDS: ferrous sulfate 325mg tablet PO SCH ×2 (08:28→20:11)
[2019-05-21] MEDS: pyridoxine 50mg tablet PO SCH (08:28)
[2019-05-21] MEDS: fluvoxamine 25 MG tablet PO SCH ×2 (08:28→20:11)
[2019-05-21] MEDS: aspirin 81mg tablet.DR PO SCH (08:28)
[2019-05-21] MEDS: LORazepam 1 MG tablet PO PRN (08:28)
[2019-05-21] MEDS: valproic acid 250mg capsule PO SCH ×2 (08:28→20:10)
[2019-05-21] MEDS: levoTHYROXINE 25mcg tablet PO SCH (08:28)
[2019-05-21] MEDS: docusate sod 100mg capsule PO SCH ×2 (08:28→20:11)
[2019-05-21] MEDS: aripiprazole 5mg tablet PO SCH (08:28)
[2019-05-21] MEDS: metoprolol tartrate 12.5mg (1/2 tablet) PO SCH ×2 (08:30→20:11)
[2019-05-21 18:00] VITALS: BP 122/70
--- NOTE | 2019-05-21 18:10 | NUR ---
Patient in room ORTH[facility] 4008. I have received report from JHOAN Hawthorne and had the opportunity to ask questions and assume patient care.
[2019-05-21] MEDS: polyethylene glycol 3350 17gm powd pack PO SCH (20:10)
[2019-05-21] MEDS: quetiapine 100mg tablet PO SCH (20:11)
[2019-05-21 22:00] VITALS: BP 133/76
[2019-05-22 06:00] VITALS: BP 100/49
--- NOTE | 2019-05-22 06:22 | NUR ---
Problems reprioritized. Patient report given, questions answered & plan of care reviewed with JHOAN Hawthorne.
[2019-05-22] MEDS: metoprolol tartrate 12.5mg (1/2 tablet) PO SCH ×2 (08:00→20:22)
[2019-05-22] MEDS: aspirin 81mg tablet.DR PO SCH (08:00)
[2019-05-22 10:00] VITALS: BP 102/52
[2019-05-22] MEDS: pantoprazole 40mg Tablet.DR PO SCH ×2 (10:19→18:00)
[2019-05-22] MEDS: valproic acid 250mg capsule PO SCH ×2 (10:20→20:13)
[2019-05-22] MEDS: fluvoxamine 25 MG tablet PO SCH ×2 (10:20→20:13)
[2019-05-22] MEDS: docusate sod 100mg capsule PO SCH ×2 (10:20→20:13)
[2019-05-22] MEDS: ferrous sulfate 325mg tablet PO SCH ×2 (10:20→20:13)
[2019-05-22] MEDS: aripiprazole 5mg tablet PO SCH (10:20)
[2019-05-22] MEDS: LORazepam 1 MG tablet PO PRN (10:21)
[2019-05-22] MEDS: levoTHYROXINE 25mcg tablet PO SCH (10:21)
[2019-05-22] MEDS: pyridoxine 50mg tablet PO SCH (10:21)
--- NOTE | 2019-05-22 11:26 | NUR ---
Dr Jain at bedside to examine pt re prolapsed rectum. He states he will do surgery Sat Or
[2019-05-22 18:00] VITALS: BP 117/59
--- NOTE | 2019-05-22 18:10 | NUR ---
Patient in room ORTH[facility] 4008. I have received report from JHOAN Hawthorne and had the opportunity to ask questions and assume patient care.
[2019-05-22] MEDS: quetiapine 100mg tablet PO SCH (20:13)
[2019-05-22] MEDS: polyethylene glycol 3350 17gm powd pack PO SCH (20:13)
[2019-05-22] MEDS: HYDROcodone/acetaminophen 10/325mg tab PO PRN (21:31)
[2019-05-22 22:00] VITALS: BP 146/90
[2019-05-23 06:00] VITALS: BP 93/50
--- NOTE | 2019-05-23 06:15 | NUR ---
Problems reprioritized. Patient report given, questions answered & plan of care reviewed with JHOAN Hawthorne.
[2019-05-23] MEDS: metoprolol tartrate 12.5mg (1/2 tablet) PO SCH ×2 (08:00→20:44)
[2019-05-23] MEDS: ferrous sulfate 325mg tablet PO SCH ×2 (09:08→20:43)
[2019-05-23] MEDS: aspirin 81mg tablet.DR PO SCH (09:08)
[2019-05-23] MEDS: aripiprazole 5mg tablet PO SCH (09:08)
[2019-05-23] MEDS: pantoprazole 40mg Tablet.DR PO SCH ×2 (09:08→16:46)
[2019-05-23] MEDS: docusate sod 100mg capsule PO SCH ×2 (09:08→20:43)
[2019-05-23] MEDS: valproic acid 250mg capsule PO SCH ×2 (09:08→20:45)
[2019-05-23] MEDS: levoTHYROXINE 25mcg tablet PO SCH (09:09)
[2019-05-23] MEDS: pyridoxine 50mg tablet PO SCH (09:09)
[2019-05-23] MEDS: fluvoxamine 25 MG tablet PO SCH ×2 (09:09→20:45)
[2019-05-23] MEDS: LORazepam 1 MG tablet PO PRN (09:10)
[2019-05-23 10:00] VITALS: BP 120/74
[2019-05-23] MEDS: HYDROcodone/acetaminophen 5mg/325mg tablet PO PRN (16:45)
[2019-05-23 18:00] VITALS: BP 141/73
--- NOTE | 2019-05-23 18:10 | NUR ---
Patient in room ORTH[facility] 4008. I have received report from JHOAN Hawthorne and had the opportunity to ask questions and assume patient care.
[2019-05-23] MEDS: quetiapine 100mg tablet PO SCH (20:42)
[2019-05-23] MEDS: polyethylene glycol 3350 17gm powd pack PO SCH (20:45)
[2019-05-23 22:00] VITALS: BP 115/69
--- NOTE | 2019-05-24 06:15 | NUR ---
Patient in room ORTH[facility] 4008. I have received report from Dalia STAPLES and had the opportunity to ask questions and assume patient care.
--- NOTE | 2019-05-24 06:29 | NUR ---
Problems reprioritized. Patient report given, questions answered & plan of care reviewed with JHOAN Franks.
[2019-05-24 06:45] VITALS: BP 106/49
--- NOTE | 2019-05-24 07:15 | NUR ---
Patient requested for nurse to take water away. This nurse asked her what she will drink, her response was ilana miranda. Administered her am Levothyroxine to her with applesauce alone, she refused to take a drink to wash it down, swallowed fine and tolerated well.
[2019-05-24] MEDS: levoTHYROXINE 25mcg tablet PO SCH (07:21)
[2019-05-24] MEDS: pantoprazole 40mg Tablet.DR PO SCH ×2 (07:49→17:00)
[2019-05-24] MEDS: HYDROcodone/acetaminophen 5mg/325mg tablet PO PRN (08:15)
[2019-05-24] MEDS: ferrous sulfate 325mg tablet PO SCH ×2 (08:16→21:11)
[2019-05-24] MEDS: docusate sod 100mg capsule PO SCH ×2 (08:16→21:10)
[2019-05-24] MEDS: aripiprazole 5mg tablet PO SCH (08:16)
[2019-05-24] MEDS: valproic acid 250mg capsule PO SCH ×2 (08:17→21:12)
[2019-05-24] MEDS: pyridoxine 50mg tablet PO SCH (08:17)
[2019-05-24] MEDS: metoprolol tartrate 12.5mg (1/2 tablet) PO SCH ×2 (08:17→21:12)
[2019-05-24] MEDS: fluvoxamine 25 MG tablet PO SCH ×2 (08:18→21:16)
[2019-05-24] MEDS: aspirin 81mg tablet.DR PO SCH (08:18)
[2019-05-24 09:30] VITALS: BP 92/49
--- NOTE | 2019-05-24 09:36 | NUR ---
Paged hospitalist, "Tiny Bautista- [facility] [place] 4006 low BP, good map, please call" Made aware that patient BP was 92/49 (66) asymptomatic. No new orders noted.
--- NOTE | 2019-05-24 13:47 | NUR ---
received report from blanca law
--- NOTE | 2019-05-24 14:37 | NUR ---
i agree w/previous nurses' physical assessment of pt
[2019-05-24 18:00] VITALS: BP 107/57
--- NOTE | 2019-05-24 18:25 | NUR ---
gave report blanca moe
[2019-05-24] MEDS: polyethylene glycol 3350 17gm powd pack PO SCH (21:00)
[2019-05-24] MEDS: quetiapine 100mg tablet PO SCH (21:16)
[2019-05-24 21:47] VITALS: BP 137/73
[2019-05-25] MEDS: valproic acid 250mg capsule PO SCH ×2 (07:47→20:19)
[2019-05-25] MEDS: pyridoxine 50mg tablet PO SCH (07:48)
[2019-05-25] MEDS: levoTHYROXINE 25mcg tablet PO SCH (07:48)
[2019-05-25] MEDS: docusate sod 100mg capsule PO SCH ×2 (07:48→19:25)
[2019-05-25] MEDS: aspirin 81mg tablet.DR PO SCH (07:48)
[2019-05-25] MEDS: ferrous sulfate 325mg tablet PO SCH ×2 (07:48→20:19)
[2019-05-25] MEDS: fluvoxamine 25 MG tablet PO SCH ×2 (07:48→20:19)
[2019-05-25] MEDS: metoprolol tartrate 12.5mg (1/2 tablet) PO SCH ×2 (07:49→20:20)
[2019-05-25] MEDS: aripiprazole 5mg tablet PO SCH (07:50)
[2019-05-25] MEDS: pantoprazole 40mg Tablet.DR PO SCH ×2 (07:50→20:19)
[2019-05-25 10:00] VITALS: BP 112/61
--- NOTE | 2019-05-25 13:26 | NUR ---
reassessment: Pt advanced to mechanical soft/grind meats/thin liquids per SP recs. Yesterday requesting cheese and granola on pureed diet as well as gum; RD notified RN cannot send since on pureed diet. Now only cafe item. LBM 05/23. PO 100% meals meeting needs. No nutrition concerns at this time. Recommend: 1. Continue mechanical soft/grind meat/thin liquids per SP 2. Double proteins TID 3. bowel care as needed 4. wt per rx Addendum: 05/25/19 at [address] Amended: Links added.
--- NOTE | 2019-05-25 16:10 | NUR ---
Problems reprioritized. Patient report given, questions answered & plan of care reviewed with JHOAN Perez.
[2019-05-25 18:30] VITALS: BP 119/69
[2019-05-25] MEDS: quetiapine 100mg tablet PO SCH (20:19)
[2019-05-25] MEDS: polyethylene glycol 3350 17gm powd pack PO SCH (20:20)
[2019-05-25 22:00] VITALS: BP 150/83
[2019-05-26] VITALS (19 sets, daily range): BP systolic 96–157; BP diastolic 45–79
--- NOTE | 2019-05-26 06:21 | NUR ---
Problems reprioritized. Patient report given, questions answered & plan of care reviewed with JHOAN Nathan. Addendum: 05/26/19 at 0622 by Ana Morillo RN Amended: Links added.
--- NOTE | 2019-05-26 06:38 | NUR ---
Patient in room ORTH[facility] 4008. I have received report from Ana STAPLES and had the opportunity to ask questions and assume patient care.
[2019-05-26] MEDS: pantoprazole 40mg Tablet.DR PO SCH ×2 (07:30→17:41)
[2019-05-26] MEDS: ferrous sulfate 325mg tablet PO SCH ×2 (08:00→20:41)
[2019-05-26] MEDS: aspirin 81mg tablet.DR PO SCH (08:00)
[2019-05-26] MEDS: docusate sod 100mg capsule PO SCH ×2 (08:00→20:41)
[2019-05-26] MEDS: pyridoxine 50mg tablet PO SCH (08:00)
[2019-05-26] MEDS: fluvoxamine 25 MG tablet PO SCH ×2 (08:28→20:39)
[2019-05-26] MEDS: aripiprazole 5mg tablet PO SCH (08:28)
[2019-05-26] MEDS: LORazepam 1 MG tablet PO PRN (08:28)
[2019-05-26] MEDS: valproic acid 250mg capsule PO SCH ×2 (08:31→20:39)
[2019-05-26] MEDS: levoTHYROXINE 25mcg tablet PO SCH (08:31)
[2019-05-26] MEDS: metoprolol tartrate 12.5mg (1/2 tablet) PO SCH ×2 (08:32→20:40)
[2019-05-26] MEDS ORDERED: ROPIVAcaine 0.5% (5mg/ml) 30ml vial ONE (12:56)
[2019-05-26] MEDS ORDERED: BUPIVAcaine 0.5% inj/PF 30 ML ONE (13:38)
--- NOTE | 2019-05-26 13:39 | NUR ---
Spoke with pt's primary RN regarding pt's WOC needs at this time. Per primary RN, pt does not require further WOC interventions at this time. Will continue to follow.
[2019-05-26] MEDS ORDERED: fentaNYL /PF 50mcg/ml 5ml ampule ONE (13:56)
[2019-05-26] MEDS ORDERED: LIDOcaine 1%/PF 5ML 10 MG/ML VIAL ONE (14:00)
[2019-05-26] MEDS ORDERED: sevoflurane 250ml liquid IH ONE (14:00)
[2019-05-26] MEDS ORDERED: ringers solution, lacted 1,000 ML IV SCH (14:34)
[2019-05-26] MEDS ORDERED: morphine 4 MG/ML inj SYRINge IV PRN (14:35)
[2019-05-26] MEDS ORDERED: HYDROmorphone inj. 0.5 MG/0.5 ML DISP.SYRIN IV PRN (14:35)
[2019-05-26] MEDS ORDERED: ondansetron/PF 4mg/2ml inj IV PRN (14:35)
[2019-05-26] MEDS ORDERED: neostigmine methylsulfate 1 MG/ML 10ml vial ONE (14:49)
[2019-05-26] MEDS ORDERED: glycopyrrolate 0.2mg/ml inj ONE (14:49)
[2019-05-26] MEDS ORDERED: rocuronium 10mg/ml inj IV ONE (14:50)
[2019-05-26] MEDS ORDERED: ondansetron/PF 4mg/2ml inj ONE (14:50)
[2019-05-26] MEDS ORDERED: propofol inj 20 ML IV ONE (14:50)
[2019-05-26] MEDS ORDERED: dexamethasone sod phosphate 4mg/ml inj. ONE (14:50)
[2019-05-26] MEDS ORDERED: LIDOcaine 2% (20mg/ml) 5ml vial ONE (14:50)
[2019-05-26] MEDS ORDERED: phenylephrine 10mg/ml inj. ONE (15:04)
[2019-05-26] MEDS ORDERED: ePHEDrine 50MG/ML INJ. ONE (15:04)
[2019-05-26] MEDS ORDERED: naloxone 0.4 mg/ml inj ONE (15:43)
--- NOTE | 2019-05-26 15:51 | NUR ---
Received from OR via BED, accompanied by Anesthesiologist DR BOND and report given by Anesthesiologist. PT DROWSY, DENIES PAIN, PERIANAL AREA W/FOAM TAPE COVERING. BLANKET WARMER PLACED ON PT FOR TEMP 35.6. Addendum: 05/26/19 at 1629 by Robina Bolaños RN Amended: Links added.
--- NOTE | 2019-05-26 17:01 | NUR ---
Report called to receiving nurse. Transferred via BED, NO Belongings, RECEIVING RN AT BEDSIDE TO RECEIVE PT, BLL, CALL LIGHT GIVEN, SIDE RAILS UP X 2. Special Issues communicated to receiving nurse. YES. Addendum: 05/26/19 at 1716 by Robina Bolaños RN Amended: Links added.
--- NOTE | 2019-05-26 18:10 | NUR ---
Patient in room ORTHO 4008. I have received report from JHOAN Nathan and had the opportunity to ask questions and assume patient care.
--- NOTE | 2019-05-26 18:39 | NUR ---
Problems reprioritized. Patient report given, questions answered & plan of care reviewed with Lali STAPLES.
[2019-05-26] MEDS: quetiapine 100mg tablet PO SCH (20:39)
[2019-05-26] MEDS: polyethylene glycol 3350 17gm powd pack PO SCH (21:00)
--- NOTE | 2019-05-26 23:55 | NUR ---
Pt is NPO. Rectum packed after prolapse surgery. Orders given to keep Pt NPO so patient doesn't have a bowel movement at this time.
[2019-05-27] VITALS (7 sets, daily range): BP systolic 98–131; BP diastolic 52–68
--- NOTE | 2019-05-27 03:28 | NUR ---
Orienteer documentation: I have reviewed and agree with all interventions, assessments performed and documented by JHOAN العراقي. Orienteer Medication Administration: For this medication-pass time frame, all medication were reviewed, dispensed, administered and documented per hospital policy by JHOAN العراقي.
--- NOTE | 2019-05-27 05:24 | NUR ---
Patients SBP from [id number] were trending in the mid to low 80's. Would wake pt up and recheck, BP would increase by a few points. MAP would be greater than 60 at all times.
--- NOTE | 2019-05-27 06:10 | NUR ---
Patient in room ORTHO 4008. I have received report from Lali STAPLES and had the opportunity to ask questions and assume patient care.
--- NOTE | 2019-05-27 06:15 | NUR ---
Problems reprioritized. Patient report given, questions answered & plan of care reviewed with JHOAN Franks.
--- NOTE | 2019-05-27 06:30 | NUR ---
Received report from JHOAN Franks
[2019-05-27] MEDS: levoTHYROXINE 25mcg tablet PO SCH (09:00)
[2019-05-27] MEDS: aripiprazole 5mg tablet PO SCH (09:01)
[2019-05-27] MEDS: metoprolol tartrate 12.5mg (1/2 tablet) PO SCH ×2 (09:01→21:36)
[2019-05-27] MEDS: aspirin 81mg tablet.DR PO SCH (09:02)
[2019-05-27] MEDS: LORazepam 1 MG tablet PO PRN (09:02)
[2019-05-27] MEDS: pantoprazole 40mg Tablet.DR PO SCH ×2 (09:02→17:52)
[2019-05-27] MEDS: pyridoxine 50mg tablet PO SCH (09:03)
[2019-05-27] MEDS: valproic acid 250mg capsule PO SCH ×2 (09:04→21:22)
[2019-05-27] MEDS: fluvoxamine 25 MG tablet PO SCH ×2 (09:04→21:22)
[2019-05-27] MEDS: docusate sod 100mg capsule PO SCH ×2 (09:05→21:22)
[2019-05-27] MEDS: ferrous sulfate 325mg tablet PO SCH ×2 (09:05→21:22)
--- NOTE | 2019-05-27 10:46 | NUR ---
CALLED DR. BHANDARI RE: PATIENT'S DIET STATUS AND DESIRE FOR LABS? DR. BHANDARI STATES PATIENT MAY START ON SIPS OF CLEAR LIQUIDS (NOT A FULL TRAY) AND LABS ORDERED FOR TOMORROW, ALSO GET PATIENT UP AND WALK HER.
--- NOTE | 2019-05-27 11:59 | NUR ---
Student documentation: I have reviewed all interventions, assessments performed and documented by Lor Blanco . Student Medication Administration: For this medication-pass time frame, all medication were reviewed, dispensed, administered and documented per hospital policy by Lor Blanco.
--- NOTE | 2019-05-27 14:54 | NUR ---
Checked with pt's primary nurse regarding WOC needs at this time. Primary nurse reported no new issues at this time, and pt is s/p surgery for rectal prolapse. Will continue to follow.
--- NOTE | 2019-05-27 18:13 | NUR ---
Problems reprioritized. Patient report given, questions answered & plan of care reviewed with Norma STAPLES.
[2019-05-27] MEDS: polyethylene glycol 3350 17gm powd pack PO SCH (21:22)
[2019-05-27] MEDS: quetiapine 100mg tablet PO SCH (21:22)
[2019-05-27] MEDS: acetaminophen 325mg/10.15ml oral unit dose solution PO PRN (21:24)
[2019-05-28 05:00] VITALS: BP 110/52
[2019-05-28 05:39] LABS: BASOPHILS # (AUTO) 0.1 X10'3 (0-0.2); BASOPHILS % (AUTO) 0.8 % (0-1); EOSINOPHILS # (AUTO) 0.1 X10'3 (0-0.9); EOSINOPHILS % (AUTO) 1.8 % (0-6); HEMATOCRIT 30.9 % (35.0-45.0); HEMOGLOBIN 10.7 g/dl (12.0-16.0); LYMPHOCYTES # (AUTO) 3.2 X10'3 (1.1-4.8); LYMPHOCYTES % (AUTO) 45.7 % (21-51); MEAN CORPUSCULAR HEMOGLOBIN 33.5 PG (27.0-31.0); MEAN CORPUSCULAR HGB CONC 34.6 g/dL (33.0-36.5); MEAN CORPUSCULAR VOLUME 96.8 FL (78-98); MEAN PLATELET VOLUME 8.3 FL (7.4-10.4); MONOCYTES # (AUTO) 0.8 X10'3 (0-0.9); MONOCYTES % (AUTO) 10.6 % (2-12); NEUTROPHILS # (AUTO) 2.9 X10'3 (1.8-7.7); NEUTROPHILS % (AUTO) 41.1 % (42-75); PLATELET COUNT 166 X10'3 (140-440); RED BLOOD COUNT 3.19 X10'6 (4.20-5.60); RED CELL DISTRIBUTION WIDTH 14.4 % (11.5-14.5); WHITE BLOOD COUNT 7.1 X10'3 (4.5-11.0)
[2019-05-28 05:50] LABS: ALANINE AMINOTRANSFERASE 10 U/L (12-78); ALBUMIN 2.3 G/DL (3.4-5.0); ALBUMIN/GLOBULIN RATIO 0.7 (1.1-1.5); ALKALINE PHOSPHATASE 72 IU/L (46-116); ANION GAP 5 (8-16); ASPARTATE AMINO TRANSFERASE 13 U/L (10-37); BILIRUBIN,TOTAL 0.2 MG/DL (0.1-1.0); BLOOD UREA NITROGEN 8 MG/DL (7-18); BUN/CREATININE RATIO 18.6 (6.6-38.0); CALCIUM 8.4 MG/DL (8.5-10.1); CHLORIDE 100 MMOL/L (99-107); CREATININE 0.43 MG/DL (0.40-0.90); GLUCOSE 89 MG/DL (70-104); SODIUM 134 MMOL/L (135-145); TOTAL PROTEIN 5.8 G/DL (6.4-8.2); eGFR > 90 ML/MIN
--- NOTE | 2019-05-28 06:00 | NUR ---
Patient in room ORTHO 4008. I have received report from JHOAN العراقي and had the opportunity to ask questions and assume patient care.
--- NOTE | 2019-05-28 06:36 | NUR ---
walked with PT. placed pt in wheelchair facing TV close to bed. tabs alarm active.
[2019-05-28] MEDS: aripiprazole 5mg tablet PO SCH (08:32)
[2019-05-28] MEDS: valproic acid 250mg capsule PO SCH ×2 (08:32→20:07)
[2019-05-28] MEDS: levoTHYROXINE 25mcg tablet PO SCH (08:32)
[2019-05-28] MEDS: fluvoxamine 25 MG tablet PO SCH ×2 (08:32→20:06)
[2019-05-28] MEDS: aspirin 81mg tablet.DR PO SCH (08:33)
[2019-05-28] MEDS: pyridoxine 50mg tablet PO SCH (08:33)
[2019-05-28] MEDS: docusate sod 100mg capsule PO SCH ×2 (08:33→20:06)
[2019-05-28] MEDS: pantoprazole 40mg Tablet.DR PO SCH ×2 (08:33→20:07)
[2019-05-28] MEDS: ferrous sulfate 325mg tablet PO SCH ×2 (08:33→20:05)
[2019-05-28] MEDS: metoprolol tartrate 12.5mg (1/2 tablet) PO SCH ×2 (08:34→20:04)
[2019-05-28 10:00] VITALS: BP 117/62
[2019-05-28] MEDS: LORazepam 1 MG tablet PO PRN (10:46)
--- NOTE | 2019-05-28 11:25 | NUR ---
Problems reprioritized. Patient report given, questions answered & plan of care reviewed with JHOAN Wick .
--- NOTE | 2019-05-28 11:25 | NUR ---
Patient in room ORTHO 4008. I have received report from Phuong STAPLES and had the opportunity to ask questions and assume patient care.
--- NOTE | 2019-05-28 17:00 | NUR ---
Dr. Jain returned call, here to take off bandage and take out packing.
--- NOTE | 2019-05-28 18:27 | NUR ---
Problems reprioritized. Patient report given, questions answered & plan of care reviewed with Sophie STAPLES.
[2019-05-28 20:00] VITALS: BP 109/47
[2019-05-28] MEDS: quetiapine 100mg tablet PO SCH (20:05)
[2019-05-28] MEDS: polyethylene glycol 3350 17gm powd pack PO SCH (21:04)
[2019-05-28 23:00] VITALS: BP 106/57
[2019-05-29 06:00] VITALS: BP 93/54
--- NOTE | 2019-05-29 06:59 | NUR ---
Patient in room ORTHO 4008. I have received report from Sophie STAPLES and had the opportunity to ask questions and assume patient care.
[2019-05-29] MEDS: ferrous sulfate 325mg tablet PO SCH ×2 (07:57→21:14)
[2019-05-29] MEDS: pyridoxine 50mg tablet PO SCH (07:59)
[2019-05-29] MEDS: pantoprazole 40mg Tablet.DR PO SCH ×2 (07:59→18:43)
[2019-05-29] MEDS: valproic acid 250mg capsule PO SCH ×2 (08:01→21:14)
[2019-05-29] MEDS: levoTHYROXINE 25mcg tablet PO SCH (08:02)
[2019-05-29] MEDS: docusate sod 100mg capsule PO SCH ×2 (08:02→21:13)
[2019-05-29] MEDS: fluvoxamine 25 MG tablet PO SCH ×2 (08:03→21:13)
[2019-05-29] MEDS: aspirin 81mg tablet.DR PO SCH (08:10)
[2019-05-29] MEDS: metoprolol tartrate 12.5mg (1/2 tablet) PO SCH ×2 (08:10→21:14)
[2019-05-29] MEDS: aripiprazole 5mg tablet PO SCH (08:12)
[2019-05-29] MEDS: LORazepam 1 MG tablet PO PRN (08:13)
[2019-05-29 10:00] VITALS: BP 111/65
--- NOTE | 2019-05-29 11:37 | NUR ---
Completed 15 min in bath. pt tolerated well. Addendum: 05/29/19 at 1212 by Екатерина VERONICA Amended: Links added.
--- NOTE | 2019-05-29 11:53 | NUR ---
S/P RECTAL PROLAPSE REPAIR, CORBY DISCHARGE ON ZUHAIR PAD 1100 FIRST SITZ BATH PER ORDER Addendum: 05/29/19 at 1200 by Екатерина VERONICA Amended: Links added.
[2019-05-29 12:02] VITALS: BP 111/65
[2019-05-29 18:00] VITALS: BP 118/62
--- NOTE | 2019-05-29 18:16 | NUR ---
Patient in room ORTHO 4008. I have received report from JHOAN Damian and had the opportunity to ask questions and assume patient care.
--- NOTE | 2019-05-29 18:40 | NUR ---
Problems reprioritized. Patient report given, questions answered & plan of care reviewed with Dalia STAPLES.
--- NOTE | 2019-05-29 18:47 | NUR ---
Patient tolerated second sitz bath of the day. Addendum: 05/29/19 at 1847 by Shamika Sheridan RN Amended: Links added.
--- NOTE | 2019-05-29 19:04 | NUR ---
Patient in room ORTHO 4008. I have received report from JHOAN Wick and had the opportunity to ask questions and assume patient care.
[2019-05-29] MEDS: polyethylene glycol 3350 17gm powd pack PO SCH (21:12)
[2019-05-29] MEDS: quetiapine 100mg tablet PO SCH (21:14)
[2019-05-29 22:00] VITALS: BP 117/58
[2019-05-30 06:00] VITALS: BP 132/72
--- NOTE | 2019-05-30 06:04 | NUR ---
While helping patient to BSC, I turned when she went to sit down on BSC (to see if there was TP or wipes near). She leaned off to the left and fell on the floor. I tried to help her up. I asked her why she fell. She stated that she "didn't know, she just fell over." Tried to help her up, called for help as patient was not helping. When PCT came to room patient was facing BSC. I was able to then get my arms under her arms and help her up to sitting on BSC. PCT stayed with patient while I notified charge nurse and her primary nurse. No noted injuries or new pain complaints. , director and Nursing Culture Room Worker notified by charge nurseMoon.
--- NOTE | 2019-05-30 06:05 | NUR ---
I sent a page and also called the phone of Dr. Last environmental lawyer for hospitalist regarding pt's sitting down on the floor. Patient was getting onto BSc with staff and she missed the BSc and sat on the floor instead. Per nurse at bedside no obvious injury noted. I also informed the nursing nut processing supervisor of fall/ sitting down on floor by patient.
--- NOTE | 2019-05-30 06:30 | NUR ---
Problems reprioritized. Patient report given, questions answered & plan of care reviewed with JHOAN Wick.
[2019-05-30] MEDS: pantoprazole 40mg Tablet.DR PO SCH ×2 (07:30→20:33)
[2019-05-30] MEDS: levoTHYROXINE 25mcg tablet PO SCH (08:42)
[2019-05-30] MEDS: valproic acid 250mg capsule PO SCH ×2 (08:42→20:34)
[2019-05-30] MEDS: aspirin 81mg tablet.DR PO SCH (08:42)
[2019-05-30] MEDS: fluvoxamine 25 MG tablet PO SCH ×2 (08:42→20:33)
[2019-05-30] MEDS: ferrous sulfate 325mg tablet PO SCH ×2 (08:42→20:34)
[2019-05-30] MEDS: LORazepam 1 MG tablet PO PRN (08:42)
[2019-05-30] MEDS: aripiprazole 5mg tablet PO SCH (08:42)
[2019-05-30] MEDS: docusate sod 100mg capsule PO SCH ×2 (08:49→20:34)
[2019-05-30] MEDS: metoprolol tartrate 12.5mg (1/2 tablet) PO SCH ×2 (08:49→20:33)
[2019-05-30] MEDS: pyridoxine 50mg tablet PO SCH (08:49)
[2019-05-30] MEDS: HYDROcodone/acetaminophen 5mg/325mg tablet PO PRN (08:56)
[2019-05-30 10:00] VITALS: BP 120/69
[2019-05-30 18:00] VITALS: BP 105/53
--- NOTE | 2019-05-30 18:00 | NUR ---
Received report from Shamika STAPLES. Assumed care of patient.
--- NOTE | 2019-05-30 18:14 | NUR ---
Problems reprioritized. Patient report given, questions answered & plan of care reviewed with Myrna RN.
--- NOTE | 2019-05-30 20:30 | NUR ---
Pt tolerated sitz bath well tonight. will continue to monitor patient.
[2019-05-30] MEDS: quetiapine 100mg tablet PO SCH (20:34)
[2019-05-30] MEDS: polyethylene glycol 3350 17gm powd pack PO SCH (20:34)
[2019-05-30 22:00] VITALS: BP 115/68
[2019-05-31 06:00] VITALS: BP 103/51
--- NOTE | 2019-05-31 06:10 | NUR ---
Gave report to Jac STAPLES.
--- NOTE | 2019-05-31 06:30 | NUR ---
Patient in room [facility]TH[facility] 4008. I have received report from Myrna STAPLES and had the opportunity to ask questions and assume patient care.
[2019-05-31] MEDS: pyridoxine 50mg tablet PO SCH (08:16)
[2019-05-31] MEDS: LORazepam 1 MG tablet PO PRN (08:16)
[2019-05-31] MEDS: valproic acid 250mg capsule PO SCH ×2 (08:17→20:12)
[2019-05-31] MEDS: pantoprazole 40mg Tablet.DR PO SCH ×2 (08:17→17:30)
[2019-05-31] MEDS: ferrous sulfate 325mg tablet PO SCH ×2 (08:17→19:33)
[2019-05-31] MEDS: aspirin 81mg tablet.DR PO SCH (08:17)
[2019-05-31] MEDS: docusate sod 100mg capsule PO SCH ×2 (08:17→19:33)
[2019-05-31] MEDS: aripiprazole 5mg tablet PO SCH (08:17)
[2019-05-31] MEDS: fluvoxamine 25 MG tablet PO SCH ×2 (08:17→20:12)
[2019-05-31] MEDS: levoTHYROXINE 25mcg tablet PO SCH (08:17)
[2019-05-31] MEDS: metoprolol tartrate 12.5mg (1/2 tablet) PO SCH ×2 (08:22→19:33)
[2019-05-31 10:00] VITALS: BP 106/58
--- NOTE | 2019-05-31 11:23 | NUR ---
reassessment: Pt s/p prolapsed rectum repair advanced to pureed diet. SP Recs mechanical soft/thin/ground meats 05/28; TONIO d/w RN regarding diet advancement IF surgeon approves. LBM 05/31. PO 100% meals meeting needs. No nutrition concerns at this time. Will continue to monitor. Recommend: 1. advance to mechanical soft/grind meat/thin liquids per SP/MD 2. Double proteins TID 3. bowel care as needed 4. wt per rx Addendum: 05/31/19 at [address] Lopez [address] Amended: Links added.
[2019-05-31 18:00] VITALS: BP 115/65
--- NOTE | 2019-05-31 18:21 | NUR ---
Problems reprioritized. Patient report given, questions answered & plan of care reviewed with Rhina STAPLES.
[2019-05-31] MEDS: quetiapine 100mg tablet PO SCH (20:12)
[2019-05-31] MEDS: polyethylene glycol 3350 17gm powd pack PO SCH (21:00)
[2019-05-31 22:00] VITALS: BP 141/76
--- NOTE | 2019-06-01 06:30 | NUR ---
Patient in room ORTHO 4008. I have received report from Rhina STAPLES and had the opportunity to ask questions and assume patient care.
[2019-06-01] MEDS: docusate sod 100mg capsule PO SCH ×2 (08:02→19:34)
[2019-06-01] MEDS: valproic acid 250mg capsule PO SCH ×2 (08:03→21:12)
[2019-06-01] MEDS: aripiprazole 5mg tablet PO SCH (08:03)
[2019-06-01] MEDS: ferrous sulfate 325mg tablet PO SCH ×2 (08:03→19:34)
[2019-06-01] MEDS: levoTHYROXINE 25mcg tablet PO SCH (08:03)
[2019-06-01] MEDS: pantoprazole 40mg Tablet.DR PO SCH ×2 (08:03→17:42)
[2019-06-01] MEDS: pyridoxine 50mg tablet PO SCH (08:03)
[2019-06-01] MEDS: metoprolol tartrate 12.5mg (1/2 tablet) PO SCH ×2 (08:05→19:34)
[2019-06-01] MEDS: aspirin 81mg tablet.DR PO SCH (08:06)
[2019-06-01] MEDS: fluvoxamine 25 MG tablet PO SCH ×2 (08:06→21:12)
[2019-06-01 10:00] VITALS: BP 104/65
[2019-06-01 18:00] VITALS: BP 121/64
--- NOTE | 2019-06-01 18:25 | NUR ---
Problems reprioritized. Patient report given, questions answered & plan of care reviewed with Joyce STAPLES.
--- NOTE | 2019-06-01 18:49 | NUR ---
Patient in room ORTHO 4008. I have received report from JHOAN MARIA and had the opportunity to ask questions and assume patient care. Addendum: 06/01/19 at 1849 by Joyce Ojeda RN Amended: Links added.
[2019-06-01 21:00] VITALS: BP 118/66
[2019-06-01] MEDS: polyethylene glycol 3350 17gm powd pack PO SCH (21:00)
[2019-06-01] MEDS: quetiapine 100mg tablet PO SCH (21:13)
[2019-06-02 06:00] VITALS: BP 115/63
--- NOTE | 2019-06-02 06:15 | NUR ---
Patient in room ORTHO 4008. I have received report from and had the opportunity to ask questions and assume patient care JHOAN Cook.
--- NOTE | 2019-06-02 06:26 | NUR ---
Problems reprioritized. Patient report given, questions answered & plan of care reviewed with JHOAN Patel. Addendum: 06/02/19 at 0626 by Joyce Ojeda RN Amended: Links added.
[2019-06-02] MEDS: fluvoxamine 25 MG tablet PO SCH ×2 (08:02→21:05)
[2019-06-02] MEDS: aripiprazole 5mg tablet PO SCH (08:02)
[2019-06-02] MEDS: pyridoxine 50mg tablet PO SCH (08:03)
[2019-06-02] MEDS: valproic acid 250mg capsule PO SCH ×2 (08:03→21:06)
[2019-06-02] MEDS: docusate sod 100mg capsule PO SCH ×2 (08:03→21:06)
[2019-06-02] MEDS: pantoprazole 40mg Tablet.DR PO SCH ×2 (08:03→17:30)
[2019-06-02] MEDS: metoprolol tartrate 12.5mg (1/2 tablet) PO SCH ×2 (08:04→21:09)
[2019-06-02] MEDS: ferrous sulfate 325mg tablet PO SCH ×2 (08:04→21:06)
[2019-06-02] MEDS: aspirin 81mg tablet.DR PO SCH (08:04)
[2019-06-02] MEDS: levoTHYROXINE 25mcg tablet PO SCH (08:04)
[2019-06-02 10:00] VITALS: BP 103/53
--- NOTE | 2019-06-02 13:53 | NUR ---
Spoke with pt's primary nurse regarding pt's WOC needs at this time. Assessed pt's backside where surgery was performed for prolapsed rectum. Noted small wound along posterior edge of anus with small opening and slough. Pt is fairly mobile and has no issues turning in bed. Will continue to follow but no additional WOC needed at this time.
[2019-06-02] MEDS: LORazepam 1 MG tablet PO PRN (14:27)
[2019-06-02] MEDS: acetaminophen 325mg/10.15ml oral unit dose solution PO PRN (14:27)
--- NOTE | 2019-06-02 17:00 | NUR ---
New Admit: A/O x4; L shoulder arthroplasty, interscaling block/sedation. OnQ pump 4. IV R hand LR running at 100mL/hr. No wallace. Inc/bladder.
[2019-06-02 18:00] VITALS: BP 100/55
--- NOTE | 2019-06-02 18:15 | NUR ---
Patient in room ORTHO 4008. I have received report from Amanda STAPLES and had the opportunity to ask questions and assume patient care.
[2019-06-02] MEDS: polyethylene glycol 3350 17gm powd pack PO SCH (21:00)
[2019-06-02] MEDS: quetiapine 100mg tablet PO SCH (21:06)
[2019-06-02 22:00] VITALS: BP 125/62
[2019-06-03] VITALS (12 sets, daily range): BP systolic 102–125; BP diastolic 39–70
--- NOTE | 2019-06-03 06:19 | NUR ---
Problems reprioritized. Patient report given, questions answered & plan of care reviewed with Camille STAPLES.
--- NOTE | 2019-06-03 06:22 | NUR ---
received report from blanca mojica
[2019-06-03] MEDS: LORazepam 1 MG tablet PO PRN (08:26)
[2019-06-03] MEDS: valproic acid 250mg capsule PO SCH ×2 (08:27→20:43)
[2019-06-03] MEDS: pyridoxine 50mg tablet PO SCH (08:29)
[2019-06-03] MEDS: levoTHYROXINE 25mcg tablet PO SCH (08:30)
[2019-06-03] MEDS: aspirin 81mg tablet.DR PO SCH (08:32)
[2019-06-03] MEDS: fluvoxamine 25 MG tablet PO SCH ×2 (08:32→20:44)
[2019-06-03] MEDS: metoprolol tartrate 12.5mg (1/2 tablet) PO SCH ×2 (08:32→20:44)
[2019-06-03] MEDS: docusate sod 100mg capsule PO SCH ×2 (08:33→20:44)
[2019-06-03] MEDS: ferrous sulfate 325mg tablet PO SCH ×2 (08:33→20:44)
[2019-06-03] MEDS: pantoprazole 40mg Tablet.DR PO SCH ×2 (08:33→16:39)
[2019-06-03] MEDS: aripiprazole 5mg tablet PO SCH (08:34)
--- NOTE | 2019-06-03 15:30 | NUR ---
ADMIN A SITZ BATH TO PT, CONTINUE TO MONITOR
--- NOTE | 2019-06-03 18:03 | NUR ---
GAVE REPORT TO JHOAN YAP
--- NOTE | 2019-06-03 18:10 | NUR ---
Patient in room ORTHO 4008. I have received report from JHOAN Obrien and had the opportunity to ask questions and assume patient care.
[2019-06-03] MEDS: polyethylene glycol 3350 17gm powd pack PO SCH (20:43)
[2019-06-03] MEDS: quetiapine 100mg tablet PO SCH (20:43)
[2019-06-04 06:10] VITALS: BP 109/57
--- NOTE | 2019-06-04 06:43 | NUR ---
Problems reprioritized. Patient report given, questions answered & plan of care reviewed with JHOAN Damian.
--- NOTE | 2019-06-04 06:51 | NUR ---
I HAVE RECEIVED PATIENT REPORT FROM FRACISCO STAPLES
[2019-06-04] MEDS: ferrous sulfate 325mg tablet PO SCH ×2 (09:22→20:24)
[2019-06-04] MEDS: fluvoxamine 25 MG tablet PO SCH ×2 (09:23→20:23)
[2019-06-04] MEDS: aspirin 81mg tablet.DR PO SCH (09:23)
[2019-06-04] MEDS: metoprolol tartrate 12.5mg (1/2 tablet) PO SCH ×2 (09:23→20:24)
[2019-06-04] MEDS: LORazepam 1 MG tablet PO PRN (09:23)
[2019-06-04] MEDS: aripiprazole 5mg tablet PO SCH (09:23)
[2019-06-04] MEDS: pyridoxine 50mg tablet PO SCH (09:24)
[2019-06-04] MEDS: docusate sod 100mg capsule PO SCH ×2 (09:24→20:23)
[2019-06-04] MEDS: pantoprazole 40mg Tablet.DR PO SCH ×2 (09:24→17:52)
[2019-06-04] MEDS: valproic acid 250mg capsule PO SCH ×2 (09:24→20:23)
[2019-06-04] MEDS: levoTHYROXINE 25mcg tablet PO SCH (09:24)
[2019-06-04 10:00] VITALS: BP 116/69
[2019-06-04 18:00] VITALS: BP 112/61
--- NOTE | 2019-06-04 18:00 | NUR ---
Patient in room ORTHO 4008. I have received report from JHOAN Damian and had the opportunity to ask questions and assume patient care.
--- NOTE | 2019-06-04 18:10 | NUR ---
Patient report given to Dalia STAPLES
[2019-06-04] MEDS: quetiapine 100mg tablet PO SCH (20:23)
[2019-06-04] MEDS: polyethylene glycol 3350 17gm powd pack PO SCH (20:24)
[2019-06-04 22:00] VITALS: BP 109/64
--- NOTE | 2019-06-05 06:08 | NUR ---
Problems reprioritized. Patient report given, questions answered & plan of care reviewed with JHOAN Damian.
[2019-06-05 06:10] VITALS: BP 113/62
[2019-06-05] MEDS: fluvoxamine 25 MG tablet PO SCH ×2 (09:38→21:15)
[2019-06-05] MEDS: pantoprazole 40mg Tablet.DR PO SCH ×2 (09:38→17:15)
[2019-06-05] MEDS: pyridoxine 50mg tablet PO SCH (09:39)
[2019-06-05] MEDS: valproic acid 250mg capsule PO SCH ×2 (09:39→21:15)
[2019-06-05] MEDS: aspirin 81mg tablet.DR PO SCH (09:39)
[2019-06-05] MEDS: levoTHYROXINE 25mcg tablet PO SCH (09:40)
[2019-06-05] MEDS: ferrous sulfate 325mg tablet PO SCH ×2 (09:40→21:13)
[2019-06-05] MEDS: metoprolol tartrate 12.5mg (1/2 tablet) PO SCH ×2 (09:41→21:14)
[2019-06-05] MEDS: aripiprazole 5mg tablet PO SCH (09:41)
[2019-06-05] MEDS: docusate sod 100mg capsule PO SCH ×2 (09:43→20:00)
[2019-06-05 10:00] VITALS: BP 130/63
[2019-06-05 18:00] VITALS: BP 112/66
--- NOTE | 2019-06-05 18:22 | NUR ---
Patient in room ORTHO 4008. I have received report from Nati Main RN and had the opportunity to ask questions and assume patient care.
--- NOTE | 2019-06-05 18:59 | NUR ---
Patient report given to Nati Valencia RN
--- NOTE | 2019-06-05 19:44 | NUR ---
Problems reprioritized. Patient report given, questions answered & plan of care reviewed with JHOAN Garcia.
[2019-06-05] MEDS: polyethylene glycol 3350 17gm powd pack PO SCH (21:00)
[2019-06-05] MEDS: quetiapine 100mg tablet PO SCH (21:15)
[2019-06-05] MEDS: HYDROcodone/acetaminophen 10/325mg tab PO PRN (21:17)
[2019-06-05 22:00] VITALS: BP 114/62
[2019-06-05] MEDS: LORazepam 1 MG tablet PO PRN (23:08)
--- NOTE | 2019-06-06 02:51 | NUR ---
Reviewed and agree with SRN assessment.
[2019-06-06 06:10] VITALS: BP 101/54
--- NOTE | 2019-06-06 06:22 | NUR ---
Problems reprioritized. Patient report given, questions answered & plan of care reviewed with JHOAN Damian.
--- NOTE | 2019-06-06 06:24 | NUR ---
I have received patient report from Radha Garcia and Sanam RAHMAN
[2019-06-06] MEDS: metoprolol tartrate 12.5mg (1/2 tablet) PO SCH ×2 (08:00→21:59)
[2019-06-06] MEDS: valproic acid 250mg capsule PO SCH ×2 (09:28→22:00)
[2019-06-06] MEDS: aripiprazole 5mg tablet PO SCH (09:28)
[2019-06-06] MEDS: pantoprazole 40mg Tablet.DR PO SCH ×2 (09:29→17:34)
[2019-06-06] MEDS: fluvoxamine 25 MG tablet PO SCH ×2 (09:29→22:00)
[2019-06-06] MEDS: pyridoxine 50mg tablet PO SCH (09:29)
[2019-06-06] MEDS: ferrous sulfate 325mg tablet PO SCH ×2 (09:29→21:58)
[2019-06-06] MEDS: aspirin 81mg tablet.DR PO SCH (09:29)
[2019-06-06] MEDS: docusate sod 100mg capsule PO SCH ×2 (09:29→20:00)
[2019-06-06] MEDS: levoTHYROXINE 25mcg tablet PO SCH (09:30)
[2019-06-06 10:00] VITALS: BP 104/68
--- NOTE | 2019-06-06 12:13 | NUR ---
I spoke to Dr. Morton about patient low BP and patient looking pale and tired. He said okay to hold metoprolol and order cbc, and cmp.
[2019-06-06 12:18] LABS: ALANINE AMINOTRANSFERASE 13 U/L (12-78); ALBUMIN 2.4 G/DL (3.4-5.0); ALBUMIN/GLOBULIN RATIO 0.6 (1.1-1.5); ALKALINE PHOSPHATASE 84 IU/L (46-116); ANION GAP 5 (8-16); ASPARTATE AMINO TRANSFERASE 9 U/L (10-37); BILIRUBIN,TOTAL 0.1 MG/DL (0.1-1.0); BLOOD UREA NITROGEN 12 MG/DL (7-18); BUN/CREATININE RATIO 26.1 (6.6-38.0); CALCIUM 8.6 MG/DL (8.5-10.1); CHLORIDE 93 MMOL/L (99-107); CREATININE 0.46 MG/DL (0.40-0.90); GLUCOSE 111 MG/DL (70-104); SODIUM 130 MMOL/L (135-145); TOTAL PROTEIN 6.5 G/DL (6.4-8.2); eGFR > 90 ML/MIN
[2019-06-06 12:20] LABS: BASOPHILS % (AUTO) 0.6 % (0-1); EOSINOPHILS # (AUTO) 0.2 X10'3 (0-0.9); EOSINOPHILS % (AUTO) 3.9 % (0-6); HEMATOCRIT 31.8 % (35.0-45.0); HEMOGLOBIN 10.9 g/dl (12.0-16.0); LYMPHOCYTES # (AUTO) 1.9 X10'3 (1.1-4.8); LYMPHOCYTES % (AUTO) 31.7 % (21-51); MEAN CORPUSCULAR HEMOGLOBIN 33.1 PG (27.0-31.0); MEAN CORPUSCULAR HGB CONC 34.3 g/dL (33.0-36.5); MEAN CORPUSCULAR VOLUME 96.5 FL (78-98); MEAN PLATELET VOLUME 7.5 FL (7.4-10.4); MONOCYTES # (AUTO) 0.6 X10'3 (0-0.9); MONOCYTES % (AUTO) 10.9 % (2-12); NEUTROPHILS # (AUTO) 3.1 X10'3 (1.8-7.7); NEUTROPHILS % (AUTO) 52.9 % (42-75); PLATELET COUNT 327 X10'3 (140-440); WHITE BLOOD COUNT 5.9 X10'3 (4.5-11.0)
[2019-06-06] MEDS: sodium chloride 1gm tablet PO SCH ×2 (17:34→21:58)
[2019-06-06 18:00] VITALS: BP 117/67
--- NOTE | 2019-06-06 18:33 | NUR ---
Patient report given to Shad STAPLES
[2019-06-06] MEDS: polyethylene glycol 3350 17gm powd pack PO SCH (21:00)
[2019-06-06] MEDS: HYDROcodone/acetaminophen 10/325mg tab PO PRN (21:58)
[2019-06-06] MEDS: quetiapine 100mg tablet PO SCH (21:58)
[2019-06-06] MEDS: LORazepam 1 MG tablet PO PRN (21:58)
[2019-06-06 22:00] VITALS: BP 140/72
--- NOTE | 2019-06-06 22:00 | NUR ---
Patient in room ORTHO 4008. I have received report from JHOAN Kulkarni and had the opportunity to ask questions and assume patient care.
[2019-06-07 06:00] VITALS: BP 91/57
--- NOTE | 2019-06-07 06:00 | NUR ---
Problems reprioritized. Patient report given, questions answered & plan of care reviewed with JHOAN Obrien.
--- NOTE | 2019-06-07 06:11 | NUR ---
rECIEVED REPORT FROM HJOAN ZAVALETA
[2019-06-07 07:45] LABS: ALBUMIN 2.2 G/DL (3.4-5.0); ANION GAP 3 (8-16); BLOOD UREA NITROGEN 14 MG/DL (7-18); BUN/CREATININE RATIO 31.1 (6.6-38.0); CALCIUM 8.3 MG/DL (8.5-10.1); CHLORIDE 96 MMOL/L (99-107); CREATININE 0.45 MG/DL (0.40-0.90); GLUCOSE 95 MG/DL (70-104); POTASSIUM 4.5 MMOL/L (3.5-5.1); SODIUM 131 MMOL/L (135-145); TOTAL CARBON DIOXIDE 32.1 MMOL/L (24-32); eGFR > 90 ML/MIN
[2019-06-07] MEDS: docusate sod 100mg capsule PO SCH ×2 (08:00→20:00)
[2019-06-07] MEDS: metoprolol tartrate 12.5mg (1/2 tablet) PO SCH ×2 (08:00→20:52)
[2019-06-07] MEDS: aripiprazole 5mg tablet PO SCH (08:21)
[2019-06-07] MEDS: fluvoxamine 25 MG tablet PO SCH ×2 (08:21→20:53)
[2019-06-07] MEDS: sodium chloride 1gm tablet PO SCH ×4 (08:23→21:00)
[2019-06-07] MEDS: ferrous sulfate 325mg tablet PO SCH ×2 (08:23→20:51)
[2019-06-07] MEDS: pyridoxine 50mg tablet PO SCH (08:23)
[2019-06-07] MEDS: aspirin 81mg tablet.DR PO SCH (08:24)
[2019-06-07] MEDS: levoTHYROXINE 25mcg tablet PO SCH (08:24)
[2019-06-07] MEDS: pantoprazole 40mg Tablet.DR PO SCH ×2 (08:24→16:56)
[2019-06-07] MEDS: valproic acid 250mg capsule PO SCH ×2 (08:25→20:52)
[2019-06-07 10:00] VITALS: BP 98/52
--- NOTE | 2019-06-07 11:28 | NUR ---
reassessment: Pt PO 75-100% meals meeting needs advanced to regular diet per SP. LBM 06/06. Na 131 receiving NS starting 06/06 per MD note. Pale and receiving iron as well per MD note on 06/06. TONIO d/w RN for new wt since last 04/13. No nutrition concerns at this time; will continue to monitor. Recommend: 1. continue regular diet per SP/MD 2. Double proteins TID 3. bowel care as needed 4. wt per rx Addendum: 06/07/19 at [address] Amended: Links added.
[2019-06-07 18:00] VITALS: BP 119/62
--- NOTE | 2019-06-07 18:15 | NUR ---
GAVE REPORT TO JHOAN FREEMAN
[2019-06-07] MEDS: quetiapine 100mg tablet PO SCH (20:53)
[2019-06-07] MEDS: polyethylene glycol 3350 17gm powd pack PO SCH (21:00)
[2019-06-07 22:00] VITALS: BP 104/60
[2019-06-08 07:01] LABS: ALBUMIN 2.2 G/DL (3.4-5.0); ANION GAP 4 (8-16); BLOOD UREA NITROGEN 12 MG/DL (7-18); BUN/CREATININE RATIO 24.5 (6.6-38.0); CALCIUM 8.6 MG/DL (8.5-10.1); CHLORIDE 96 MMOL/L (99-107); CREATININE 0.49 MG/DL (0.40-0.90); GLUCOSE 98 MG/DL (70-104); POTASSIUM 4.2 MMOL/L (3.5-5.1); SODIUM 131 MMOL/L (135-145); TOTAL CARBON DIOXIDE 31.1 MMOL/L (24-32); eGFR > 90 ML/MIN
[2019-06-08 07:04] VITALS: BP 104/79
[2019-06-08] MEDS: sodium chloride 1gm tablet PO SCH ×4 (08:05→21:02)
[2019-06-08] MEDS: aripiprazole 5mg tablet PO SCH (08:05)
[2019-06-08] MEDS: aspirin 81mg tablet.DR PO SCH (08:05)
[2019-06-08] MEDS: metoprolol tartrate 12.5mg (1/2 tablet) PO SCH ×2 (08:06→20:00)
[2019-06-08] MEDS: docusate sod 100mg capsule PO SCH ×2 (08:06→20:45)
[2019-06-08] MEDS: ferrous sulfate 325mg tablet PO SCH ×2 (08:06→20:46)
[2019-06-08] MEDS: pantoprazole 40mg Tablet.DR PO SCH ×2 (08:06→16:57)
[2019-06-08] MEDS: levoTHYROXINE 25mcg tablet PO SCH (08:07)
[2019-06-08] MEDS: valproic acid 250mg capsule PO SCH ×2 (08:07→20:50)
[2019-06-08] MEDS: fluvoxamine 25 MG tablet PO SCH ×2 (08:07→20:52)
[2019-06-08] MEDS: pyridoxine 50mg tablet PO SCH (08:07)
[2019-06-08 10:55] VITALS: BP 152/67
[2019-06-08] MEDS: HYDROcodone/acetaminophen 10/325mg tab PO PRN ×2 (14:37→22:37)
[2019-06-08 18:00] VITALS: BP 91/47
--- NOTE | 2019-06-08 18:30 | NUR ---
Patient in room ORTHO 4008. I have received report from Yumiko STAPLES and had the opportunity to ask questions and assume patient care.
[2019-06-08] MEDS: quetiapine 100mg tablet PO SCH (20:52)
[2019-06-08] MEDS: polyethylene glycol 3350 17gm powd pack PO SCH (20:54)
--- NOTE | 2019-06-09 04:11 | NUR ---
Left message with wound care that patient has requested for her fingernails to get clipped.
[2019-06-09 06:27] LABS: ALBUMIN 2.3 G/DL (3.4-5.0); ANION GAP 4 (8-16); BLOOD UREA NITROGEN 15 MG/DL (7-18); BUN/CREATININE RATIO 22.7 (6.6-38.0); CALCIUM 8.5 MG/DL (8.5-10.1); CHLORIDE 96 MMOL/L (99-107); CREATININE 0.66 MG/DL (0.40-0.90); GLUCOSE 88 MG/DL (70-104); POTASSIUM 4.2 MMOL/L (3.5-5.1); SODIUM 132 MMOL/L (135-145); TOTAL CARBON DIOXIDE 31.6 MMOL/L (24-32); eGFR 88 ML/MIN
--- NOTE | 2019-06-09 06:47 | NUR ---
Problems reprioritized. Patient report given, questions answered & plan of care reviewed with Yumiko STAPLES.
[2019-06-09] MEDS: docusate sod 100mg capsule PO SCH ×2 (07:42→20:22)
[2019-06-09] MEDS: pantoprazole 40mg Tablet.DR PO SCH ×2 (07:42→17:30)
[2019-06-09] MEDS: ferrous sulfate 325mg tablet PO SCH ×2 (07:42→20:22)
[2019-06-09] MEDS: fluvoxamine 25 MG tablet PO SCH ×2 (07:42→20:22)
[2019-06-09] MEDS: sodium chloride 1gm tablet PO SCH ×4 (07:42→20:23)
[2019-06-09] MEDS: LORazepam 1 MG tablet PO PRN (07:42)
[2019-06-09] MEDS: aspirin 81mg tablet.DR PO SCH (07:42)
[2019-06-09] MEDS: valproic acid 250mg capsule PO SCH ×2 (07:43→20:23)
[2019-06-09] MEDS: pyridoxine 50mg tablet PO SCH (07:43)
[2019-06-09] MEDS: metoprolol tartrate 12.5mg (1/2 tablet) PO SCH ×2 (07:43→20:22)
[2019-06-09] MEDS: aripiprazole 5mg tablet PO SCH (07:43)
[2019-06-09] MEDS: levoTHYROXINE 25mcg tablet PO SCH (07:43)
[2019-06-09 11:21] VITALS: BP 105/59
[2019-06-09 18:35] VITALS: BP 117/62
[2019-06-09] MEDS: polyethylene glycol 3350 17gm powd pack PO SCH (20:20)
[2019-06-09] MEDS: quetiapine 100mg tablet PO SCH (20:23)
[2019-06-09 20:27] VITALS: BP 129/65
[2019-06-10 05:59] LABS: ALBUMIN 2.3 G/DL (3.4-5.0); ANION GAP 4 (8-16); BLOOD UREA NITROGEN 17 MG/DL (7-18); BUN/CREATININE RATIO 35.4 (6.6-38.0); CALCIUM 8.5 MG/DL (8.5-10.1); CHLORIDE 97 MMOL/L (99-107); CREATININE 0.48 MG/DL (0.40-0.90); GLUCOSE 87 MG/DL (70-104); POTASSIUM 4.9 MMOL/L (3.5-5.1); SODIUM 131 MMOL/L (135-145); TOTAL CARBON DIOXIDE 30.2 MMOL/L (24-32); eGFR > 90 ML/MIN
--- NOTE | 2019-06-10 06:09 | NUR ---
Problems reprioritized. Patient report given, questions answered & plan of care reviewed with JHOAN CARBAJAL.
[2019-06-10 10:00] VITALS: BP 114/61
[2019-06-10] MEDS: aripiprazole 5mg tablet PO SCH (10:00)
[2019-06-10] MEDS: docusate sod 100mg capsule PO SCH ×2 (10:01→20:00)
[2019-06-10] MEDS: metoprolol tartrate 12.5mg (1/2 tablet) PO SCH ×2 (10:01→20:22)
[2019-06-10] MEDS: pantoprazole 40mg Tablet.DR PO SCH ×2 (10:01→18:22)
[2019-06-10] MEDS: valproic acid 250mg capsule PO SCH ×2 (10:01→20:18)
[2019-06-10] MEDS: levoTHYROXINE 25mcg tablet PO SCH (10:01)
[2019-06-10] MEDS: pyridoxine 50mg tablet PO SCH (10:02)
[2019-06-10] MEDS: fluvoxamine 25 MG tablet PO SCH ×2 (10:02→20:18)
[2019-06-10] MEDS: aspirin 81mg tablet.DR PO SCH (10:02)
[2019-06-10] MEDS: ferrous sulfate 325mg tablet PO SCH ×2 (10:02→20:17)
[2019-06-10] MEDS: sodium chloride 1gm tablet PO SCH ×4 (10:02→20:18)
[2019-06-10 18:00] VITALS: BP 128/70
[2019-06-10] MEDS: quetiapine 100mg tablet PO SCH (20:17)
[2019-06-10] MEDS: polyethylene glycol 3350 17gm powd pack PO SCH (20:17)
[2019-06-10 22:00] VITALS: BP 130/72
[2019-06-11 05:56] LABS: ALBUMIN 2.8 G/DL (3.4-5.0); ANION GAP 5 (8-16); BLOOD UREA NITROGEN 16 MG/DL (7-18); BUN/CREATININE RATIO 33.3 (6.6-38.0); CALCIUM 9.3 MG/DL (8.5-10.1); CHLORIDE 94 MMOL/L (99-107); CREATININE 0.48 MG/DL (0.40-0.90); GLUCOSE 94 MG/DL (70-104); POTASSIUM 4.8 MMOL/L (3.5-5.1); SODIUM 128 MMOL/L (135-145); eGFR > 90 ML/MIN
--- NOTE | 2019-06-11 06:29 | NUR ---
Problems reprioritized. Patient report given, questions answered & plan of care reviewed with JHOAN CARBAJAL.
[2019-06-11] MEDS: pantoprazole 40mg Tablet.DR PO SCH (08:20)
[2019-06-11] MEDS: aripiprazole 5mg tablet PO SCH (08:21)
[2019-06-11] MEDS: docusate sod 100mg capsule PO SCH ×2 (08:21→20:41)
[2019-06-11] MEDS: ferrous sulfate 325mg tablet PO SCH ×2 (08:21→20:41)
[2019-06-11] MEDS: valproic acid 250mg capsule PO SCH ×2 (08:21→20:42)
[2019-06-11] MEDS: fluvoxamine 25 MG tablet PO SCH ×2 (08:22→20:42)
[2019-06-11] MEDS: levoTHYROXINE 25mcg tablet PO SCH (08:22)
[2019-06-11] MEDS: aspirin 81mg tablet.DR PO SCH (08:22)
[2019-06-11] MEDS: metoprolol tartrate 12.5mg (1/2 tablet) PO SCH ×2 (08:22→20:00)
[2019-06-11] MEDS: sodium chloride 1gm tablet PO SCH ×4 (08:23→20:41)
[2019-06-11] MEDS: pyridoxine 50mg tablet PO SCH (08:23)
[2019-06-11 10:00] VITALS: BP 133/78
--- NOTE | 2019-06-11 15:37 | NUR ---
Patient had a 90 sec partial seizure, it took about a 60 seconds for her to wake up. BP after 150/70 HR 90 and RN 97
[2019-06-11 18:00] VITALS: BP 110/58
--- NOTE | 2019-06-11 18:04 | NUR ---
Problems reprioritized. Patient report given, questions answered & plan of care reviewed with Francie.
--- NOTE | 2019-06-11 18:05 | NUR ---
Patient in room ORTHO 4008. I have received report from Shamika STAPLES and had the opportunity to ask questions and assume patient care.
[2019-06-11] MEDS: quetiapine 100mg tablet PO SCH (20:50)
[2019-06-11] MEDS: polyethylene glycol 3350 17gm powd pack PO SCH (21:00)
[2019-06-11 22:00] VITALS: BP 111/55
[2019-06-12 06:00] VITALS: BP 101/65
--- NOTE | 2019-06-12 06:20 | NUR ---
Problems reprioritized. Patient report given, questions answered & plan of care reviewed with Marine STAPLES.
[2019-06-12 10:00] VITALS: BP 142/85
[2019-06-12] MEDS: sodium chloride 1gm tablet PO SCH ×4 (10:38→20:23)
[2019-06-12] MEDS: cetirizine 10mg tablet PO SCH (10:38)
[2019-06-12] MEDS: pyridoxine 50mg tablet PO SCH (10:38)
[2019-06-12] MEDS: levoTHYROXINE 25mcg tablet PO SCH (10:39)
[2019-06-12] MEDS: pantoprazole 40mg Tablet.DR PO SCH (10:39)
[2019-06-12] MEDS: ferrous sulfate 325mg tablet PO SCH ×2 (10:40→20:23)
[2019-06-12] MEDS: aspirin 81mg tablet.DR PO SCH (10:40)
[2019-06-12] MEDS: metoprolol tartrate 12.5mg (1/2 tablet) PO SCH ×2 (10:40→20:22)
[2019-06-12] MEDS: aripiprazole 5mg tablet PO SCH (10:41)
[2019-06-12] MEDS: valproic acid 250mg capsule PO SCH ×2 (10:41→20:23)
[2019-06-12] MEDS: acetaminophen 325mg/10.15ml oral unit dose solution PO PRN (10:43)
[2019-06-12 18:00] VITALS: BP 102/56
[2019-06-12] MEDS: quetiapine 100mg tablet PO SCH (20:22)
[2019-06-12] MEDS: polyethylene glycol 3350 17gm powd pack PO SCH (20:26)
[2019-06-12 22:00] VITALS: BP 120/61
[2019-06-13 06:00] VITALS: BP 111/85
[2019-06-13] MEDS: aripiprazole 5mg tablet PO SCH (08:41)
[2019-06-13] MEDS: valproic acid 250mg capsule PO SCH ×2 (08:42→20:10)
[2019-06-13] MEDS: ferrous sulfate 325mg tablet PO SCH ×2 (08:43→20:09)
[2019-06-13] MEDS: aspirin 81mg tablet.DR PO SCH (08:43)
[2019-06-13] MEDS: pantoprazole 40mg Tablet.DR PO SCH (08:45)
[2019-06-13] MEDS: cetirizine 10mg tablet PO SCH (08:46)
[2019-06-13] MEDS: levoTHYROXINE 25mcg tablet PO SCH (08:46)
[2019-06-13] MEDS: pyridoxine 50mg tablet PO SCH (08:46)
[2019-06-13] MEDS: metoprolol tartrate 12.5mg (1/2 tablet) PO SCH ×2 (08:46→20:10)
[2019-06-13] MEDS: sodium chloride 1gm tablet PO SCH ×4 (08:46→20:09)
[2019-06-13] MEDS: acetaminophen 325mg/10.15ml oral unit dose solution PO PRN ×2 (08:53→16:30)
[2019-06-13 10:00] VITALS: BP 132/67
--- NOTE | 2019-06-13 15:51 | NUR ---
PAGER ID: [phone] MESSAGE: Marine [phone] re [place] in [phone]- you want to order labs to recheck sodium? maybe a chem panel?
[2019-06-13] MEDS: LORazepam 1 MG tablet PO PRN (16:29)
[2019-06-13 17:01] LABS: ALBUMIN 2.7 G/DL (3.4-5.0); ANION GAP 7 (8-16); BLOOD UREA NITROGEN 16 MG/DL (7-18); CALCIUM 8.9 MG/DL (8.5-10.1); CHLORIDE 98 MMOL/L (99-107); GLUCOSE 97 MG/DL (70-104); POTASSIUM 3.9 MMOL/L (3.5-5.1); SODIUM 134 MMOL/L (135-145); TOTAL CARBON DIOXIDE 29.5 MMOL/L (24-32); eGFR > 90 ML/MIN
[2019-06-13 18:00] VITALS: BP 122/71
--- NOTE | 2019-06-13 19:00 | NUR ---
Patient in room ORTHO 4008. I have received report from Marine STAPLES and had the opportunity to ask questions and assume patient care.
[2019-06-13] MEDS: quetiapine 100mg tablet PO SCH (20:09)
[2019-06-13] MEDS: polyethylene glycol 3350 17gm powd pack PO SCH (21:00)
[2019-06-13 22:00] VITALS: BP 106/57
[2019-06-14 06:00] VITALS: BP 134/73
[2019-06-14] MEDS: pyridoxine 50mg tablet PO SCH (08:24)
[2019-06-14] MEDS: valproic acid 250mg capsule PO SCH ×2 (08:26→19:17)
[2019-06-14] MEDS: cetirizine 10mg tablet PO SCH (08:27)
[2019-06-14] MEDS: aspirin 81mg tablet.DR PO SCH (08:27)
[2019-06-14] MEDS: ferrous sulfate 325mg tablet PO SCH ×2 (08:27→19:16)
[2019-06-14] MEDS: sodium chloride 1gm tablet PO SCH ×4 (08:27→19:17)
[2019-06-14] MEDS: levoTHYROXINE 25mcg tablet PO SCH (08:28)
[2019-06-14] MEDS: metoprolol tartrate 12.5mg (1/2 tablet) PO SCH ×2 (08:31→19:16)
[2019-06-14] MEDS: pantoprazole 40mg Tablet.DR PO SCH (08:32)
[2019-06-14] MEDS: aripiprazole 5mg tablet PO SCH (08:32)
[2019-06-14 09:30] VITALS: BP 111/69
[2019-06-14 09:31] LABS: ALBUMIN 2.6 G/DL (3.4-5.0); ANION GAP 8 (8-16); BLOOD UREA NITROGEN 19 MG/DL (7-18); BUN/CREATININE RATIO 45.2 (6.6-38.0); CHLORIDE 97 MMOL/L (99-107); CREATININE 0.42 MG/DL (0.40-0.90); GLUCOSE 84 MG/DL (70-104); POTASSIUM 4.3 MMOL/L (3.5-5.1); SODIUM 131 MMOL/L (135-145); TOTAL CARBON DIOXIDE 26.4 MMOL/L (24-32); eGFR > 90 ML/MIN
[2019-06-14 10:00] VITALS: BP 116/63
--- NOTE | 2019-06-14 12:36 | NUR ---
reassessment: Pt PO 100% meals meeting needs. LBM 06/13. Na 131 receiving NS. No nutrition concerns at this time. Will continue to monitor. Recommend: 1. continue regular diet per SP/MD 2. Double proteins TID 3. bowel care as needed 4. wt per rx Addendum: 06/14/19 at [address] Amended: Links added.
[2019-06-14 17:00] VITALS: BP 106/56
--- NOTE | 2019-06-14 18:17 | NUR ---
Problems reprioritized. Patient report given, questions answered & plan of care reviewed with Adriana STAPLES.
--- NOTE | 2019-06-14 18:18 | NUR ---
Received report from JHOAN Wick. Patient is awake and alert on room air, in no apparent distress. Sitting up, eating meal. Call light and items of frequent use within reach. Close to RN station. Will continue to monitor.
[2019-06-14] MEDS: quetiapine 100mg tablet PO SCH (19:16)
[2019-06-14] MEDS: polyethylene glycol 3350 17gm powd pack PO SCH (19:29)
[2019-06-14 22:00] VITALS: BP 97/48
[2019-06-15 06:00] VITALS: BP 123/70
--- NOTE | 2019-06-15 06:18 | NUR ---
Problems reprioritized. Patient report given, questions answered & plan of care reviewed with JHOAN Wick.
[2019-06-15] MEDS: levoTHYROXINE 25mcg tablet PO SCH (07:23)
[2019-06-15] MEDS: pyridoxine 50mg tablet PO SCH (07:23)
[2019-06-15] MEDS: aripiprazole 5mg tablet PO SCH (07:23)
[2019-06-15] MEDS: aspirin 81mg tablet.DR PO SCH (07:23)
[2019-06-15] MEDS: sodium chloride 1gm tablet PO SCH ×4 (07:23→20:15)
[2019-06-15] MEDS: pantoprazole 40mg Tablet.DR PO SCH (07:23)
[2019-06-15] MEDS: cetirizine 10mg tablet PO SCH (07:23)
[2019-06-15] MEDS: ferrous sulfate 325mg tablet PO SCH ×2 (07:23→20:15)
[2019-06-15] MEDS: metoprolol tartrate 12.5mg (1/2 tablet) PO SCH ×2 (07:24→20:15)
[2019-06-15] MEDS: valproic acid 250mg capsule PO SCH ×2 (07:24→20:15)
[2019-06-15] MEDS: LORazepam 1 MG tablet PO PRN (07:52)
[2019-06-15 10:00] VITALS: BP 112/57
[2019-06-15 18:00] VITALS: BP 97/54
--- NOTE | 2019-06-15 18:19 | NUR ---
Problems reprioritized. Patient report given, questions answered & plan of care reviewed with Anali STAPLES.
[2019-06-15] MEDS: quetiapine 100mg tablet PO SCH (20:15)
[2019-06-15] MEDS: polyethylene glycol 3350 17gm powd pack PO SCH (20:20)
[2019-06-15 22:00] VITALS: BP 120/57
[2019-06-16 06:00] VITALS: BP 103/57
--- NOTE | 2019-06-16 06:23 | NUR ---
REPORT GIVEN TO JHOAN CARBAJAL.
[2019-06-16] MEDS: valproic acid 250mg capsule PO SCH ×2 (08:44→20:16)
[2019-06-16] MEDS: aripiprazole 5mg tablet PO SCH (08:44)
[2019-06-16] MEDS: cetirizine 10mg tablet PO SCH (08:45)
[2019-06-16] MEDS: pantoprazole 40mg Tablet.DR PO SCH (08:45)
[2019-06-16] MEDS: pyridoxine 50mg tablet PO SCH (08:45)
[2019-06-16] MEDS: ferrous sulfate 325mg tablet PO SCH ×2 (08:45→20:16)
[2019-06-16] MEDS: levoTHYROXINE 25mcg tablet PO SCH (08:45)
[2019-06-16] MEDS: aspirin 81mg tablet.DR PO SCH (08:45)
[2019-06-16] MEDS: sodium chloride 1gm tablet PO SCH ×4 (08:45→20:16)
[2019-06-16] MEDS: metoprolol tartrate 12.5mg (1/2 tablet) PO SCH ×2 (08:46→20:19)
[2019-06-16 10:00] VITALS: BP 99/60
[2019-06-16] MEDS: LORazepam 1 MG tablet PO PRN (11:57)
[2019-06-16 18:00] VITALS: BP 109/55
--- NOTE | 2019-06-16 18:20 | NUR ---
Problems reprioritized. Patient report given, questions answered & plan of care reviewed with Anali STAPLES.
[2019-06-16] MEDS: quetiapine 100mg tablet PO SCH (20:16)
[2019-06-16] MEDS: polyethylene glycol 3350 17gm powd pack PO SCH (21:00)
[2019-06-16 22:00] VITALS: BP 110/79
[2019-06-17 06:00] VITALS: BP 123/63
--- NOTE | 2019-06-17 06:15 | NUR ---
Patient in room ORTHO 4008. I have received report from Anali/Sury and had the opportunity to ask questions and assume patient care.
[2019-06-17] MEDS: aripiprazole 5mg tablet PO SCH (08:21)
[2019-06-17] MEDS: valproic acid 250mg capsule PO SCH ×2 (08:22→20:06)
[2019-06-17] MEDS: aspirin 81mg tablet.DR PO SCH (08:22)
[2019-06-17] MEDS: ferrous sulfate 325mg tablet PO SCH ×2 (08:22→20:05)
[2019-06-17] MEDS: levoTHYROXINE 25mcg tablet PO SCH (08:23)
[2019-06-17] MEDS: metoprolol tartrate 12.5mg (1/2 tablet) PO SCH ×2 (08:23→20:07)
[2019-06-17] MEDS: pantoprazole 40mg Tablet.DR PO SCH (08:23)
[2019-06-17] MEDS: sodium chloride 1gm tablet PO SCH ×4 (08:23→20:05)
[2019-06-17] MEDS: pyridoxine 50mg tablet PO SCH (08:23)
[2019-06-17] MEDS: cetirizine 10mg tablet PO SCH (08:24)
[2019-06-17 10:00] VITALS: BP 118/63
--- NOTE | 2019-06-17 11:00 | NUR ---
Spoke with regarding pt receiving influenza vaccine. okayed, however, the hospital is out of the vaccine at this time.
[2019-06-17] MEDS: LORazepam 1 MG tablet PO PRN (11:06)
[2019-06-17 18:00] VITALS: BP 112/64
--- NOTE | 2019-06-17 18:44 | NUR ---
Problems reprioritized. Patient report given, questions answered & plan of care reviewed with
[2019-06-17] MEDS: quetiapine 100mg tablet PO SCH (20:06)
[2019-06-17] MEDS: polyethylene glycol 3350 17gm powd pack PO SCH (20:08)
--- NOTE | 2019-06-18 06:15 | NUR ---
Patient in room ORTHO 4008. I have received report from GUILLE STAPLES and had the opportunity to ask questions and assume patient care.
--- NOTE | 2019-06-18 06:19 | NUR ---
Problems reprioritized. Patient report given, questions answered & plan of care reviewed with JHOAN HUANG.
--- NOTE | 2019-06-18 07:30 | NUR ---
ATTEMPTED TO WALK PATIENT AFTER USING THE RESTROOM, PATIENT WAS TRYING TO AIR FRESHENER FROM THE BEDSIDE DRESSER OUTSIDE OF THE ROOM. THEN SHE WAS OPENING THE DRAWERS AND TRYING TO TAKE ITEMS FROM THE DRESSER. PATIENT TOOK UNDERWEAR AND PAD FROM THE DRESSER. WHEN TRYING TO PREVENT HER FROM TAKING THOSE ITEMS SHE STARTING YELLING PROFANITIES AND WENT BACK INTO HER ROOM. SHE TOLD ME TO GET OUT OF HER ROOM. UNABLE TO GET THE AIR FRESHENER FROM THE PATIENT. WILL CONTINUE TO MONITOR.
--- NOTE | 2019-06-18 07:45 | NUR ---
PATIENT WAS STANDING UP TRYING TO PUT ON HER UNDERWEAR, WHEN TRYING TO ASSIST PATIENT TO PREVENT FALLING SHE YELLED PROFANITIES AGAIN AND TOLD ME TO GET OUT OF HER ROOM.
[2019-06-18] MEDS: aripiprazole 5mg tablet PO SCH (08:09)
[2019-06-18] MEDS: valproic acid 250mg capsule PO SCH ×2 (08:10→20:12)
[2019-06-18] MEDS: ferrous sulfate 325mg tablet PO SCH ×2 (08:10→20:12)
[2019-06-18] MEDS: aspirin 81mg tablet.DR PO SCH (08:10)
[2019-06-18] MEDS: sodium chloride 1gm tablet PO SCH ×4 (08:11→20:15)
[2019-06-18] MEDS: pantoprazole 40mg Tablet.DR PO SCH (08:11)
[2019-06-18] MEDS: metoprolol tartrate 12.5mg (1/2 tablet) PO SCH ×2 (08:11→20:11)
[2019-06-18] MEDS: LORazepam 1 MG tablet PO PRN (08:12)
[2019-06-18] MEDS: pyridoxine 50mg tablet PO SCH (08:12)
[2019-06-18] MEDS: levoTHYROXINE 25mcg tablet PO SCH (08:12)
[2019-06-18] MEDS: cetirizine 10mg tablet PO SCH (08:12)
[2019-06-18 09:39] VITALS: BP 106/55
[2019-06-18] MEDS ORDERED: FLU VACC QS2019-20 36MOS UP/PF 60 MCG/0.5 ML SYRINGE IMVAC ONE (10:00)
--- NOTE | 2019-06-18 11:27 | NUR ---
Checked with pt's primary RN regarding WOC concerns, skin breakdown, or pressure ulcer formation. Pt's nurse states nothing new noted upon assessment and no additional concerns at this time. Will continue to follow.
--- NOTE | 2019-06-18 18:05 | NUR ---
Problems reprioritized. Patient report given, questions answered & plan of care reviewed with LOUIS STAPLES.
--- NOTE | 2019-06-18 18:08 | NUR ---
Student documentation: I have reviewed and agree with all interventions, assessments performed and documented by SREEDHAR RAHMAN.
--- NOTE | 2019-06-18 18:09 | NUR ---
Student Medication Administration: For this medication-pass time frame, all medication were reviewed, dispensed, administered and documented per hospital policy by SREEDHAR RAHMAN.
[2019-06-18 18:25] VITALS: BP 114/68
[2019-06-18 18:27] VITALS: BP 114/68
[2019-06-18] MEDS: polyethylene glycol 3350 17gm powd pack PO SCH (20:09)
[2019-06-18] MEDS: quetiapine 100mg tablet PO SCH (20:12)
[2019-06-19 06:00] VITALS: BP 130/75
--- NOTE | 2019-06-19 06:26 | NUR ---
Problems reprioritized. Patient report given, questions answered & plan of care reviewed with JHOAN Renae.
--- NOTE | 2019-06-19 06:33 | NUR ---
Problems reprioritized. Patient report given, questions answered & plan of care reviewed with JHOAN Hawthorne.
[2019-06-19] MEDS: valproic acid 250mg capsule PO SCH ×2 (09:34→20:07)
[2019-06-19] MEDS: aripiprazole 5mg tablet PO SCH (09:34)
[2019-06-19] MEDS: ferrous sulfate 325mg tablet PO SCH ×2 (09:35→20:06)
[2019-06-19] MEDS: aspirin 81mg tablet.DR PO SCH (09:35)
[2019-06-19] MEDS: metoprolol tartrate 12.5mg (1/2 tablet) PO SCH ×2 (09:35→20:07)
[2019-06-19] MEDS: pyridoxine 50mg tablet PO SCH (09:36)
[2019-06-19] MEDS: levoTHYROXINE 25mcg tablet PO SCH (09:36)
[2019-06-19] MEDS: sodium chloride 1gm tablet PO SCH ×4 (09:36→20:06)
[2019-06-19] MEDS: pantoprazole 40mg Tablet.DR PO SCH (09:36)
[2019-06-19] MEDS: LORazepam 1 MG tablet PO PRN ×2 (09:37→18:01)
[2019-06-19] MEDS: cetirizine 10mg tablet PO SCH (09:37)
[2019-06-19] MEDS: acetaminophen 325mg/10.15ml oral unit dose solution PO PRN (09:40)
[2019-06-19 10:38] VITALS: BP 102/59
[2019-06-19 18:00] VITALS: BP 105/60
[2019-06-19] MEDS: polyethylene glycol 3350 17gm powd pack PO SCH (18:53)
[2019-06-19] MEDS: quetiapine 100mg tablet PO SCH (20:06)
[2019-06-19 22:00] VITALS: BP 131/80
--- NOTE | 2019-06-19 23:00 | NUR ---
PATIENT WAS FOUND HANGING OVER END OF BED AND TRYING TO TURN OFF BED ALARM. HER TABS WAS ALSO PULLED OFF. PATIENT WAS EDUCATED ABOUT SAFETY, AGAIN. LAND CHECKER USED TAPE TO SHUT DOOR ON END OF BED TO PROTECT BED ALARM SETTINGS.
[2019-06-20 06:00] VITALS: BP 131/72
--- NOTE | 2019-06-20 06:18 | NUR ---
Problems reprioritized. Patient report given, questions answered & plan of care reviewed with JHOAN Smith.
--- NOTE | 2019-06-20 06:36 | NUR ---
Patient in room ORTHO 4008. I have received report from Radha Garcia RN and had the opportunity to ask questions and assume patient care.
[2019-06-20] MEDS: metoprolol tartrate 12.5mg (1/2 tablet) PO SCH ×2 (07:49→19:49)
[2019-06-20] MEDS: pantoprazole 40mg Tablet.DR PO SCH (07:49)
[2019-06-20] MEDS: aripiprazole 5mg tablet PO SCH (07:49)
[2019-06-20] MEDS: aspirin 81mg tablet.DR PO SCH (07:50)
[2019-06-20] MEDS: valproic acid 250mg capsule PO SCH ×2 (07:50→19:50)
[2019-06-20] MEDS: sodium chloride 1gm tablet PO SCH ×4 (07:50→19:49)
[2019-06-20] MEDS: levoTHYROXINE 25mcg tablet PO SCH (07:50)
[2019-06-20] MEDS: cetirizine 10mg tablet PO SCH (07:50)
[2019-06-20] MEDS: pyridoxine 50mg tablet PO SCH (07:50)
[2019-06-20] MEDS: ferrous sulfate 325mg tablet PO SCH ×2 (07:50→19:50)
[2019-06-20 10:00] VITALS: BP 108/67
[2019-06-20 18:00] VITALS: BP 119/64
[2019-06-20] MEDS: quetiapine 100mg tablet PO SCH (19:49)
[2019-06-20] MEDS: polyethylene glycol 3350 17gm powd pack PO SCH (19:51)
[2019-06-20 22:00] VITALS: BP 96/50
[2019-06-21] MEDS: sodium chloride 1gm tablet PO SCH ×4 (08:06→20:18)
[2019-06-21] MEDS: aspirin 81mg tablet.DR PO SCH (08:07)
[2019-06-21] MEDS: levoTHYROXINE 25mcg tablet PO SCH (08:07)
[2019-06-21] MEDS: cetirizine 10mg tablet PO SCH (08:07)
[2019-06-21] MEDS: pantoprazole 40mg Tablet.DR PO SCH (08:07)
[2019-06-21] MEDS: valproic acid 250mg capsule PO SCH ×2 (08:07→20:17)
[2019-06-21] MEDS: aripiprazole 5mg tablet PO SCH (08:07)
[2019-06-21] MEDS: ferrous sulfate 325mg tablet PO SCH ×2 (08:07→20:17)
[2019-06-21] MEDS: pyridoxine 50mg tablet PO SCH (08:07)
[2019-06-21] MEDS: LORazepam 1 MG tablet PO PRN (08:08)
[2019-06-21] MEDS: metoprolol tartrate 12.5mg (1/2 tablet) PO SCH ×2 (08:08→20:24)
[2019-06-21 11:04] VITALS: BP 152/68
--- NOTE | 2019-06-21 14:35 | NUR ---
reassessment: Pt PO 100% meals meeting needs. LBM 06/20. Not receiving TF though being documented; likely error. No nutrition concerns at this time. Will continue to monitor. Recommend: 1. continue regular diet per SP/MD 2. Double proteins TID 3. bowel care as needed 4. wt per rx Addendum: 06/21/19 at [address] Amended: Links added.
[2019-06-21 17:00] VITALS: BP 106/59
--- NOTE | 2019-06-21 18:10 | NUR ---
Patient in room ORTHO 4008. I have received report from Yumiko STAPLES and had the opportunity to ask questions and assume patient care.
[2019-06-21] MEDS: quetiapine 100mg tablet PO SCH (20:17)
[2019-06-21] MEDS: polyethylene glycol 3350 17gm powd pack PO SCH (21:00)
--- NOTE | 2019-06-22 06:19 | NUR ---
Problems reprioritized. Patient report given, questions answered & plan of care reviewed with Amanda STAPLES.
--- NOTE | 2019-06-22 06:30 | NUR ---
Patient in room ORTHO 4008. I have received report from and had the opportunity to ask questions and assume patient care JHOAN Marmolejo.
[2019-06-22] MEDS: aspirin 81mg tablet.DR PO SCH (08:33)
[2019-06-22] MEDS: levoTHYROXINE 25mcg tablet PO SCH (08:33)
[2019-06-22] MEDS: cetirizine 10mg tablet PO SCH (08:33)
[2019-06-22] MEDS: ferrous sulfate 325mg tablet PO SCH ×2 (08:33→20:24)
[2019-06-22] MEDS: pyridoxine 50mg tablet PO SCH (08:33)
[2019-06-22] MEDS: aripiprazole 5mg tablet PO SCH (08:33)
[2019-06-22] MEDS: sodium chloride 1gm tablet PO SCH ×4 (08:34→20:27)
[2019-06-22] MEDS: pantoprazole 40mg Tablet.DR PO SCH (08:34)
[2019-06-22] MEDS: valproic acid 250mg capsule PO SCH ×2 (08:34→20:25)
[2019-06-22] MEDS: metoprolol tartrate 12.5mg (1/2 tablet) PO SCH ×2 (08:42→20:27)
[2019-06-22 10:00] VITALS: BP 120/65
--- NOTE | 2019-06-22 14:07 | NUR ---
WOC checked with pt's primary RN regarding wound care needs at this time and signs of skin breakdown. Primary RN stated no new issues and no new WOC interventions needed at this time. Will continue to monitor.
[2019-06-22 18:00] VITALS: BP 119/66
--- NOTE | 2019-06-22 18:28 | NUR ---
Problems reprioritized. Patient report given, questions answered & plan of care reviewed with JHOAN Martinez.
[2019-06-22] MEDS: quetiapine 100mg tablet PO SCH (20:24)
[2019-06-22] MEDS: polyethylene glycol 3350 17gm powd pack PO SCH (21:00)
--- NOTE | 2019-06-22 21:45 | NUR ---
pt combative and spit on gas charger Beth and dalia mccracken,called security.helped pt to the bathroom and back in bed,finally calm down and sorry for what she acted.
[2019-06-22] MEDS: LORazepam 1 MG tablet PO PRN (21:52)
[2019-06-22 22:00] VITALS: BP 119/70
[2019-06-23 06:00] VITALS: BP 105/57
--- NOTE | 2019-06-23 06:00 | NUR ---
Patient in room ORTHO 4008. I have received report from and had the opportunity to ask questions and assume patient care JHOAN Martinez.
[2019-06-23] MEDS: pantoprazole 40mg Tablet.DR PO SCH (08:45)
[2019-06-23] MEDS: aspirin 81mg tablet.DR PO SCH (08:45)
[2019-06-23] MEDS: valproic acid 250mg capsule PO SCH ×2 (08:45→20:45)
[2019-06-23] MEDS: pyridoxine 50mg tablet PO SCH (08:45)
[2019-06-23] MEDS: cetirizine 10mg tablet PO SCH (08:45)
[2019-06-23] MEDS: sodium chloride 1gm tablet PO SCH ×4 (08:46→20:46)
[2019-06-23] MEDS: metoprolol tartrate 12.5mg (1/2 tablet) PO SCH ×2 (08:46→20:46)
[2019-06-23] MEDS: levoTHYROXINE 25mcg tablet PO SCH (08:46)
[2019-06-23] MEDS: aripiprazole 5mg tablet PO SCH (08:46)
[2019-06-23] MEDS: ferrous sulfate 325mg tablet PO SCH ×2 (08:46→20:46)
[2019-06-23 14:58] VITALS: BP 134/60
[2019-06-23 18:00] VITALS: BP 111/62
[2019-06-23] MEDS: quetiapine 100mg tablet PO SCH (20:46)
[2019-06-23] MEDS: polyethylene glycol 3350 17gm powd pack PO SCH (20:49)
[2019-06-23 22:00] VITALS: BP 114/64
[2019-06-23] MEDS: LORazepam 1 MG tablet PO PRN (23:07)
[2019-06-23] MEDS: acetaminophen 325mg/10.15ml oral unit dose solution PO PRN (23:07)
[2019-06-24 06:00] VITALS: BP 105/57
--- NOTE | 2019-06-24 06:10 | NUR ---
Patient in room ORTHO 4008. I have received report from Anlai and had the opportunity to ask questions and assume patient care.
--- NOTE | 2019-06-24 06:16 | NUR ---
REPORT GIVEN TO JHOAN DE LA TORRE.
[2019-06-24] MEDS: aripiprazole 5mg tablet PO SCH (08:39)
[2019-06-24] MEDS: cetirizine 10mg tablet PO SCH (08:40)
[2019-06-24] MEDS: sodium chloride 1gm tablet PO SCH ×4 (08:40→20:14)
[2019-06-24] MEDS: pyridoxine 50mg tablet PO SCH (08:40)
[2019-06-24] MEDS: pantoprazole 40mg Tablet.DR PO SCH (08:40)
[2019-06-24] MEDS: valproic acid 250mg capsule PO SCH ×2 (08:40→20:17)
[2019-06-24] MEDS: aspirin 81mg tablet.DR PO SCH (08:40)
[2019-06-24] MEDS: ferrous sulfate 325mg tablet PO SCH ×2 (08:40→20:17)
[2019-06-24] MEDS: levoTHYROXINE 25mcg tablet PO SCH (08:40)
[2019-06-24] MEDS: metoprolol tartrate 12.5mg (1/2 tablet) PO SCH ×2 (08:42→20:20)
[2019-06-24 10:00] VITALS: BP 106/62
[2019-06-24 18:00] VITALS: BP 104/55
--- NOTE | 2019-06-24 18:16 | NUR ---
Problems reprioritized. Patient report given, questions answered & plan of care reviewed with Radha Mckinney
[2019-06-24] MEDS: quetiapine 100mg tablet PO SCH (20:16)
[2019-06-24] MEDS: polyethylene glycol 3350 17gm powd pack PO SCH (20:23)
[2019-06-24 22:27] VITALS: BP 92/51
[2019-06-25 06:00] VITALS: BP 112/61
--- NOTE | 2019-06-25 06:20 | NUR ---
Problems reprioritized. Patient report given, questions answered & plan of care reviewed with JHOAN Renae.
--- NOTE | 2019-06-25 06:20 | NUR ---
Patient in room ORTHO 4008. I have received report from Rachid/Radha Mckinney and had the opportunity to ask questions and assume patient care.
[2019-06-25] MEDS: aripiprazole 5mg tablet PO SCH (08:20)
[2019-06-25] MEDS: ferrous sulfate 325mg tablet PO SCH ×2 (08:21→19:52)
[2019-06-25] MEDS: valproic acid 250mg capsule PO SCH ×2 (08:21→19:52)
[2019-06-25] MEDS: aspirin 81mg tablet.DR PO SCH (08:21)
[2019-06-25] MEDS: pyridoxine 50mg tablet PO SCH (08:22)
[2019-06-25] MEDS: metoprolol tartrate 12.5mg (1/2 tablet) PO SCH ×2 (08:22→19:52)
[2019-06-25] MEDS: cetirizine 10mg tablet PO SCH (08:22)
[2019-06-25] MEDS: sodium chloride 1gm tablet PO SCH ×4 (08:22→19:52)
[2019-06-25] MEDS: levoTHYROXINE 25mcg tablet PO SCH (08:22)
[2019-06-25] MEDS: pantoprazole 40mg Tablet.DR PO SCH (08:22)
[2019-06-25 10:00] VITALS: BP 126/61
--- NOTE | 2019-06-25 10:44 | NUR ---
Student documentation: I have reviewed all interventions, assessments performed and documented by Sara Blanco. Student Medication Administration: For this medication-pass time frame, all medication were reviewed, dispensed, administered and documented per hospital policy by Sara Blanco.
[2019-06-25 18:00] VITALS: BP 118/52
[2019-06-25] MEDS: polyethylene glycol 3350 17gm powd pack PO SCH (19:50)
[2019-06-25] MEDS: quetiapine 100mg tablet PO SCH (19:52)
[2019-06-25 22:00] VITALS: BP 102/54
[2019-06-26 06:00] VITALS: BP 103/57
--- NOTE | 2019-06-26 06:15 | NUR ---
Patient in room ORTHO 4008. I have received report from Radha Mckinney and had the opportunity to ask questions and assume patient care.
--- NOTE | 2019-06-26 06:23 | NUR ---
Problems reprioritized. Patient report given, questions answered & plan of care reviewed with JHOAN Renae.
[2019-06-26] MEDS: aripiprazole 5mg tablet PO SCH (08:20)
[2019-06-26] MEDS: metoprolol tartrate 12.5mg (1/2 tablet) PO SCH ×2 (08:21→20:33)
[2019-06-26] MEDS: ferrous sulfate 325mg tablet PO SCH ×2 (08:21→20:30)
[2019-06-26] MEDS: aspirin 81mg tablet.DR PO SCH (08:21)
[2019-06-26] MEDS: valproic acid 250mg capsule PO SCH ×2 (08:21→20:32)
[2019-06-26] MEDS: sodium chloride 1gm tablet PO SCH ×4 (08:22→20:32)
[2019-06-26] MEDS: pantoprazole 40mg Tablet.DR PO SCH (08:22)
[2019-06-26] MEDS: cetirizine 10mg tablet PO SCH (08:22)
[2019-06-26] MEDS: pyridoxine 50mg tablet PO SCH (08:22)
[2019-06-26] MEDS: levoTHYROXINE 25mcg tablet PO SCH (08:22)
[2019-06-26 09:51] VITALS: BP 120/57
[2019-06-26] MEDS: LORazepam 1 MG tablet PO PRN (10:36)
--- NOTE | 2019-06-26 14:55 | NUR ---
Patient in room ORTHO 4008. I have received report from Amparo in ED and had the opportunity to ask questions and assume patient care.
--- NOTE | 2019-06-26 17:00 | NUR ---
Patient in room ORTHO 4008. I have received report from BRITT STAPLES and had the opportunity to ask questions and assume patient care.
--- NOTE | 2019-06-26 17:12 | NUR ---
Problems reprioritized. Patient report given, questions answered & plan of care reviewed with Brea.
[2019-06-26 18:00] VITALS: BP 109/68
--- NOTE | 2019-06-26 18:16 | NUR ---
Report given to Radha Garcia RN.
--- NOTE | 2019-06-26 18:18 | NUR ---
Problems reprioritized. Patient report given, questions answered & plan of care reviewed with LOUIS STAPLES.
[2019-06-26] MEDS: quetiapine 100mg tablet PO SCH (20:34)
[2019-06-26] MEDS: polyethylene glycol 3350 17gm powd pack PO SCH (20:55)
[2019-06-26 22:00] VITALS: BP 96/50
--- NOTE | 2019-06-27 00:53 | NUR ---
reviewed and agree with SRN assessment.
--- NOTE | 2019-06-27 06:31 | NUR ---
Problems reprioritized. Patient report given, questions answered & plan of care reviewed with Shamika STAPLES.
[2019-06-27] MEDS: aripiprazole 5mg tablet PO SCH (08:24)
[2019-06-27] MEDS: levoTHYROXINE 25mcg tablet PO SCH (08:25)
[2019-06-27] MEDS: LORazepam 1 MG tablet PO PRN (08:26)
[2019-06-27] MEDS: aspirin 81mg tablet.DR PO SCH (08:27)
[2019-06-27] MEDS: sodium chloride 1gm tablet PO SCH ×4 (08:27→20:25)
[2019-06-27] MEDS: valproic acid 250mg capsule PO SCH ×2 (08:27→20:24)
[2019-06-27] MEDS: ferrous sulfate 325mg tablet PO SCH ×2 (08:27→20:24)
[2019-06-27] MEDS: pantoprazole 40mg Tablet.DR PO SCH (08:28)
[2019-06-27] MEDS: pyridoxine 50mg tablet PO SCH (08:28)
[2019-06-27] MEDS: cetirizine 10mg tablet PO SCH (08:29)
[2019-06-27] MEDS: metoprolol tartrate 12.5mg (1/2 tablet) PO SCH ×2 (08:29→20:00)
[2019-06-27 08:55] VITALS: BP 105/65
[2019-06-27 11:04] VITALS: BP 103/68
[2019-06-27] MEDS: acetaminophen 325mg/10.15ml oral unit dose solution PO PRN (11:33)
[2019-06-27 16:12] LABS: ALANINE AMINOTRANSFERASE 13 U/L (12-78); ALBUMIN 2.7 G/DL (3.4-5.0); ALBUMIN/GLOBULIN RATIO 0.7 (1.1-1.5); ALKALINE PHOSPHATASE 79 IU/L (46-116); ANION GAP 3 (8-16); ASPARTATE AMINO TRANSFERASE 13 U/L (10-37); BILIRUBIN,TOTAL 0.2 MG/DL (0.1-1.0); BLOOD UREA NITROGEN 16 MG/DL (7-18); BUN/CREATININE RATIO 28.6 (6.6-38.0); CALCIUM 7.9 MG/DL (8.5-10.1); CHLORIDE 102 MMOL/L (99-107); CREATININE 0.56 MG/DL (0.40-0.90); GLUCOSE 108 MG/DL (70-104); POTASSIUM 4.4 MMOL/L (3.5-5.1); SODIUM 136 MMOL/L (135-145); TOTAL CARBON DIOXIDE 31.1 MMOL/L (24-32); TOTAL PROTEIN 6.6 G/DL (6.4-8.2); eGFR > 90 ML/MIN
[2019-06-27 18:00] VITALS: BP 93/46
--- NOTE | 2019-06-27 18:18 | NUR ---
Problems reprioritized. Patient report given, questions answered & plan of care reviewed with Prudence RN.
--- NOTE | 2019-06-27 18:31 | NUR ---
Patient in room ORTHO 4008. I have received report from Shamika STAPLES and had the opportunity to ask questions and assume patient care. patient is up in the chair watching TV and shows no sign of distress.
[2019-06-27] MEDS: quetiapine 100mg tablet PO SCH (20:25)
[2019-06-27] MEDS: polyethylene glycol 3350 17gm powd pack PO SCH (20:29)
[2019-06-27 23:17] VITALS: BP 91/49
[2019-06-28 06:00] VITALS: BP 96/61
--- NOTE | 2019-06-28 06:30 | NUR ---
Patient in room ORTHO 4008. I have received report from and had the opportunity to ask questions and assume patient care JHOAN Rosas.
--- NOTE | 2019-06-28 06:41 | NUR ---
Problems reprioritized. Patient report given, questions answered & plan of care reviewed with Amanda STAPLES.Patient resting and shows no sign of distress.
[2019-06-28] MEDS: aripiprazole 5mg tablet PO SCH (07:52)
[2019-06-28] MEDS: ferrous sulfate 325mg tablet PO SCH ×2 (07:52→20:07)
[2019-06-28] MEDS: cetirizine 10mg tablet PO SCH (07:53)
[2019-06-28] MEDS: pyridoxine 50mg tablet PO SCH (07:53)
[2019-06-28] MEDS: aspirin 81mg tablet.DR PO SCH (07:53)
[2019-06-28] MEDS: levoTHYROXINE 25mcg tablet PO SCH (07:53)
[2019-06-28] MEDS: valproic acid 250mg capsule PO SCH ×2 (07:53→20:08)
[2019-06-28] MEDS: sodium chloride 1gm tablet PO SCH ×4 (07:53→20:07)
[2019-06-28] MEDS: pantoprazole 40mg Tablet.DR PO SCH (07:53)
[2019-06-28] MEDS: metoprolol tartrate 12.5mg (1/2 tablet) PO SCH ×2 (07:55→20:08)
[2019-06-28 10:00] VITALS: BP 100/51
[2019-06-28] MEDS: acetaminophen 325mg/10.15ml oral unit dose solution PO PRN (11:05)
[2019-06-28] MEDS: LORazepam 1 MG tablet PO PRN (11:06)
--- NOTE | 2019-06-28 15:38 | NUR ---
reassessment: Pt PO 100% avg meals meeting needs. LBM 06/27. No nutrition concerns at this time. Will continue to monitor. Recommend: 1. continue regular diet per SP/MD 2. Double proteins TID 3. bowel care as needed 4. wt per rx Addendum: 06/28/19 at [address] Amended: Links added.
[2019-06-28 18:00] VITALS: BP 110/66
--- NOTE | 2019-06-28 18:10 | NUR ---
Received report from JHOAN Patel, assumed patient care.
--- NOTE | 2019-06-28 18:30 | NUR ---
Problems reprioritized. Patient report given, questions answered & plan of care reviewed with JHOAN Delong.
[2019-06-28] MEDS: quetiapine 100mg tablet PO SCH (20:07)
[2019-06-28] MEDS: polyethylene glycol 3350 17gm powd pack PO SCH (20:11)
[2019-06-29] MEDS: LORazepam 1 MG tablet PO PRN ×2 (01:38→20:53)
--- NOTE | 2019-06-29 06:12 | NUR ---
Patient report given, questions answered and plan of care reviewed with JHOAN Mendoza
--- NOTE | 2019-06-29 06:26 | NUR ---
received report from shruthi STAPLES
[2019-06-29] MEDS: aripiprazole 5mg tablet PO SCH (07:59)
[2019-06-29 08:00] VITALS: BP 139/72
[2019-06-29] MEDS: valproic acid 250mg capsule PO SCH ×2 (08:01→20:53)
[2019-06-29] MEDS: aspirin 81mg tablet.DR PO SCH (08:02)
[2019-06-29] MEDS: ferrous sulfate 325mg tablet PO SCH ×2 (08:02→20:53)
[2019-06-29] MEDS: sodium chloride 1gm tablet PO SCH ×4 (08:03→20:53)
[2019-06-29] MEDS: pantoprazole 40mg Tablet.DR PO SCH (08:03)
[2019-06-29] MEDS: metoprolol tartrate 12.5mg (1/2 tablet) PO SCH ×2 (08:03→20:54)
[2019-06-29] MEDS: levoTHYROXINE 25mcg tablet PO SCH (08:04)
[2019-06-29] MEDS: pyridoxine 50mg tablet PO SCH (08:05)
[2019-06-29] MEDS: cetirizine 10mg tablet PO SCH (08:06)
[2019-06-29 10:00] VITALS: BP 136/87
[2019-06-29 18:00] VITALS: BP 140/64
--- NOTE | 2019-06-29 18:10 | NUR ---
Received report from JHOAN Mendoza. Assumed patient care.
--- NOTE | 2019-06-29 18:18 | NUR ---
Problems reprioritized. Patient report given, questions answered & plan of care reviewed with JHOAN Delong.
[2019-06-29] MEDS: quetiapine 100mg tablet PO SCH (20:53)
[2019-06-29] MEDS: polyethylene glycol 3350 17gm powd pack PO SCH (20:59)
[2019-06-29 22:00] VITALS: BP 147/83
[2019-06-30 06:00] VITALS: BP 118/70
--- NOTE | 2019-06-30 06:15 | NUR ---
Patient in room ORTHO 4008. I have received report from and had the opportunity to ask questions and assume patient care JHOAN Delong.
--- NOTE | 2019-06-30 06:41 | NUR ---
Patient report given, questions answered and plan of care reviewed with JHOAN Patel.
[2019-06-30] MEDS: aripiprazole 5mg tablet PO SCH (08:45)
[2019-06-30] MEDS: pantoprazole 40mg Tablet.DR PO SCH (08:45)
[2019-06-30] MEDS: ferrous sulfate 325mg tablet PO SCH ×2 (08:47→20:37)
[2019-06-30] MEDS: cetirizine 10mg tablet PO SCH (08:47)
[2019-06-30] MEDS: pyridoxine 50mg tablet PO SCH (08:47)
[2019-06-30] MEDS: valproic acid 250mg capsule PO SCH ×2 (08:47→20:37)
[2019-06-30] MEDS: metoprolol tartrate 12.5mg (1/2 tablet) PO SCH ×2 (08:48→20:36)
[2019-06-30] MEDS: sodium chloride 1gm tablet PO SCH ×4 (08:49→20:38)
[2019-06-30] MEDS: aspirin 81mg tablet.DR PO SCH (08:50)
[2019-06-30] MEDS: levoTHYROXINE 25mcg tablet PO SCH (08:51)
[2019-06-30 10:00] VITALS: BP 113/62
--- NOTE | 2019-06-30 13:58 | NUR ---
DC daily WT per Dr Last
[2019-06-30] MEDS: LORazepam 1 MG tablet PO PRN (16:24)
[2019-06-30] MEDS: acetaminophen 325mg/10.15ml oral unit dose solution PO PRN (16:25)
[2019-06-30] MEDS: quetiapine 100mg tablet PO SCH (20:37)
[2019-06-30] MEDS: polyethylene glycol 3350 17gm powd pack PO SCH (20:38)
[2019-06-30 22:11] VITALS: BP 113/57
[2019-07-01 06:00] VITALS: BP 126/83
--- NOTE | 2019-07-01 06:27 | NUR ---
Patient in room ORTHO 4008. I have received report from Lui STAPLES and had the opportunity to ask questions and assume patient care.
[2019-07-01] MEDS: valproic acid 250mg capsule PO SCH ×2 (08:43→20:11)
[2019-07-01] MEDS: aspirin 81mg tablet.DR PO SCH (08:43)
[2019-07-01] MEDS: metoprolol tartrate 12.5mg (1/2 tablet) PO SCH ×2 (08:44→20:09)
[2019-07-01] MEDS: aripiprazole 5mg tablet PO SCH (08:44)
[2019-07-01] MEDS: levoTHYROXINE 25mcg tablet PO SCH (08:44)
[2019-07-01] MEDS: pantoprazole 40mg Tablet.DR PO SCH (08:44)
[2019-07-01] MEDS: ferrous sulfate 325mg tablet PO SCH ×2 (08:44→20:10)
[2019-07-01] MEDS: pyridoxine 50mg tablet PO SCH (08:44)
[2019-07-01] MEDS: cetirizine 10mg tablet PO SCH (08:44)
[2019-07-01] MEDS: sodium chloride 1gm tablet PO SCH ×4 (08:44→20:08)
[2019-07-01 10:00] VITALS: BP 119/75
[2019-07-01] MEDS: LORazepam 1 MG tablet PO PRN (14:23)
--- NOTE | 2019-07-01 18:20 | NUR ---
Patient in room ORTHO 4008. I have received report from tomas STAPLES and had the opportunity to ask questions and assume patient care.
--- NOTE | 2019-07-01 18:39 | NUR ---
Problems reprioritized. Patient report given, questions answered & plan of care reviewed with Latricia STAPLES.
[2019-07-01] MEDS: quetiapine 100mg tablet PO SCH (20:09)
[2019-07-01] MEDS: polyethylene glycol 3350 17gm powd pack PO SCH (20:13)
[2019-07-01 22:00] VITALS: BP 99/52
--- NOTE | 2019-07-02 06:39 | NUR ---
Problems reprioritized. Patient report given, questions answered & plan of care reviewed with Jeff STAPLES.
--- NOTE | 2019-07-02 06:52 | NUR ---
Patient in room ORTHO 4008. I have received report from Latricia STAPLES and had the opportunity to ask questions and assume patient care.
[2019-07-02] MEDS: aripiprazole 5mg tablet PO SCH (08:57)
[2019-07-02] MEDS: pyridoxine 50mg tablet PO SCH (08:58)
[2019-07-02] MEDS: sodium chloride 1gm tablet PO SCH ×4 (08:58→21:03)
[2019-07-02] MEDS: aspirin 81mg tablet.DR PO SCH (08:58)
[2019-07-02] MEDS: valproic acid 250mg capsule PO SCH ×2 (08:58→21:03)
[2019-07-02] MEDS: pantoprazole 40mg Tablet.DR PO SCH (08:58)
[2019-07-02] MEDS: ferrous sulfate 325mg tablet PO SCH ×2 (08:58→21:03)
[2019-07-02] MEDS: levoTHYROXINE 25mcg tablet PO SCH (08:58)
[2019-07-02] MEDS: cetirizine 10mg tablet PO SCH (08:58)
[2019-07-02] MEDS: metoprolol tartrate 12.5mg (1/2 tablet) PO SCH ×2 (09:00→21:03)
--- NOTE | 2019-07-02 12:29 | NUR ---
SS had t/c w/Yaneth @ [facility], per t/c pt's current notes are coming thru their fax now, Yaneth will fax to [facility] when she receives all the pages. Plan: SS will continue to keep CM/DCP apprised of dcp activities. Addendum: 07/02/19 at 1231 by Yeni Sands SS Amended: Links added.
[2019-07-02 18:00] VITALS: BP 116/65
--- NOTE | 2019-07-02 18:48 | NUR ---
Problems reprioritized. Patient report given, questions answered & plan of care reviewed with Phuong STAPLES.
[2019-07-02] MEDS: polyethylene glycol 3350 17gm powd pack PO SCH (21:00)
[2019-07-02] MEDS: LORazepam 1 MG tablet PO PRN (21:03)
[2019-07-02] MEDS: quetiapine 100mg tablet PO SCH (21:03)
[2019-07-02 22:00] VITALS: BP 135/77
[2019-07-03 06:00] VITALS: BP 136/67
[2019-07-03 07:15] LABS: BASOPHILS % (AUTO) 0.7 % (0-1); EOSINOPHILS # (AUTO) 0.2 X10'3 (0-0.9); HEMATOCRIT 30.4 % (35.0-45.0); HEMOGLOBIN 10.5 g/dl (12.0-16.0); LYMPHOCYTES # (AUTO) 2.7 X10'3 (1.1-4.8); LYMPHOCYTES % (AUTO) 49.1 % (21-51); MEAN CORPUSCULAR HEMOGLOBIN 34.2 PG (27.0-31.0); MEAN CORPUSCULAR HGB CONC 34.4 g/dL (33.0-36.5); MEAN CORPUSCULAR VOLUME 99.5 FL (78-98); MEAN PLATELET VOLUME 8.6 FL (7.4-10.4); MONOCYTES # (AUTO) 0.5 X10'3 (0-0.9); MONOCYTES % (AUTO) 9.4 % (2-12); NEUTROPHILS % (AUTO) 36.8 % (42-75); PLATELET COUNT 207 X10'3 (140-440); RED BLOOD COUNT 3.06 X10'6 (4.20-5.60); RED CELL DISTRIBUTION WIDTH 15.3 % (11.5-14.5); WHITE BLOOD COUNT 5.4 X10'3 (4.5-11.0)
[2019-07-03 07:21] LABS: ALBUMIN 2.6 G/DL (3.4-5.0); ANION GAP 3 (8-16); BLOOD UREA NITROGEN 23 MG/DL (7-18); BUN/CREATININE RATIO 41.8 (6.6-38.0); CALCIUM 8.7 MG/DL (8.5-10.1); CHLORIDE 102 MMOL/L (99-107); CREATININE 0.55 MG/DL (0.40-0.90); GLUCOSE 87 MG/DL (70-104); POTASSIUM 4.4 MMOL/L (3.5-5.1); SODIUM 137 MMOL/L (135-145); eGFR > 90 ML/MIN
[2019-07-03] MEDS: pantoprazole 40mg Tablet.DR PO SCH (09:00)
[2019-07-03] MEDS: aripiprazole 5mg tablet PO SCH (09:00)
[2019-07-03] MEDS: LORazepam 1 MG tablet PO PRN ×2 (09:00→20:49)
[2019-07-03] MEDS: aspirin 81mg tablet.DR PO SCH (09:00)
[2019-07-03] MEDS: ferrous sulfate 325mg tablet PO SCH ×2 (09:00→20:47)
[2019-07-03] MEDS: levoTHYROXINE 25mcg tablet PO SCH (09:01)
[2019-07-03] MEDS: sodium chloride 1gm tablet PO SCH ×4 (09:01→21:00)
[2019-07-03] MEDS: pyridoxine 50mg tablet PO SCH (09:01)
[2019-07-03] MEDS: metoprolol tartrate 12.5mg (1/2 tablet) PO SCH ×2 (09:01→20:59)
[2019-07-03] MEDS: cetirizine 10mg tablet PO SCH (09:01)
[2019-07-03] MEDS: valproic acid 250mg capsule PO SCH ×2 (09:02→20:47)
[2019-07-03 10:00] VITALS: BP 112/67
--- NOTE | 2019-07-03 16:57 | NUR ---
Student documentation: I have reviewed and agree with all interventions, assessments performed and documented by Shamika STAPLES. Student Medication Administration: For this medication-pass time frame, all medication were reviewed, dispensed, administered and documented per hospital policy by Shamika STAPLES Addendum: 07/03/19 at 1704 by Shamika Sheridan RN Brando MCGUIRE
[2019-07-03 17:00] VITALS: BP 105/61
--- NOTE | 2019-07-03 18:24 | NUR ---
Report to Francie STAPLES
[2019-07-03 20:45] VITALS: BP 116/62
[2019-07-03 20:47] VITALS: BP 105/61
[2019-07-03] MEDS: quetiapine 100mg tablet PO SCH (20:47)
[2019-07-03] MEDS: polyethylene glycol 3350 17gm powd pack PO SCH (21:00)
[2019-07-03 22:00] VITALS: BP 122/64
--- NOTE | 2019-07-04 06:30 | NUR ---
Problems reprioritized. Patient report given, questions answered & plan of care reviewed with Howard STAPLES.
--- NOTE | 2019-07-04 06:37 | NUR ---
Patient in room ORTHO 4008. I have received report from JHOAN Salinas and had the opportunity to ask questions and assume patient care.
[2019-07-04] MEDS: aripiprazole 5mg tablet PO SCH (07:39)
[2019-07-04] MEDS: pantoprazole 40mg Tablet.DR PO SCH (07:39)
[2019-07-04] MEDS: ferrous sulfate 325mg tablet PO SCH ×2 (07:40→20:38)
[2019-07-04] MEDS: metoprolol tartrate 12.5mg (1/2 tablet) PO SCH ×2 (07:40→20:41)
[2019-07-04] MEDS: cetirizine 10mg tablet PO SCH (07:40)
[2019-07-04] MEDS: levoTHYROXINE 25mcg tablet PO SCH (07:40)
[2019-07-04] MEDS: sodium chloride 1gm tablet PO SCH ×4 (07:40→20:38)
[2019-07-04] MEDS: LORazepam 1 MG tablet PO PRN ×2 (07:40→20:38)
[2019-07-04] MEDS: valproic acid 250mg capsule PO SCH ×2 (07:40→20:38)
[2019-07-04] MEDS: aspirin 81mg tablet.DR PO SCH (07:40)
[2019-07-04] MEDS: pyridoxine 50mg tablet PO SCH (07:40)
[2019-07-04 10:00] VITALS: BP 101/55
[2019-07-04 17:00] VITALS: BP 95/58
--- NOTE | 2019-07-04 18:12 | NUR ---
Problems reprioritized. Patient report given, questions answered & plan of care reviewed with JHOAN Marmolejo.
[2019-07-04] MEDS: quetiapine 100mg tablet PO SCH (20:39)
[2019-07-04] MEDS: polyethylene glycol 3350 17gm powd pack PO SCH (21:00)
[2019-07-04 22:00] VITALS: BP 101/51
[2019-07-05 06:00] VITALS: BP 109/51
--- NOTE | 2019-07-05 06:13 | NUR ---
Problems reprioritized. Patient report given, questions answered & plan of care reviewed with Amanda STAPLES.
--- NOTE | 2019-07-05 06:15 | NUR ---
Patient in room ORTHO 4008. I have received report from and had the opportunity to ask questions and assume patient care JHOAN Marmolejo.
[2019-07-05] MEDS: levoTHYROXINE 25mcg tablet PO SCH (07:47)
[2019-07-05] MEDS: aspirin 81mg tablet.DR PO SCH (07:48)
[2019-07-05] MEDS: pyridoxine 50mg tablet PO SCH (07:48)
[2019-07-05] MEDS: valproic acid 250mg capsule PO SCH ×2 (07:48→19:59)
[2019-07-05] MEDS: ferrous sulfate 325mg tablet PO SCH ×2 (07:48→19:58)
[2019-07-05] MEDS: aripiprazole 5mg tablet PO SCH (07:48)
[2019-07-05] MEDS: cetirizine 10mg tablet PO SCH (07:48)
[2019-07-05] MEDS: pantoprazole 40mg Tablet.DR PO SCH (07:49)
[2019-07-05] MEDS: sodium chloride 1gm tablet PO SCH ×4 (07:49→19:59)
[2019-07-05] MEDS: metoprolol tartrate 12.5mg (1/2 tablet) PO SCH ×2 (07:53→20:00)
--- NOTE | 2019-07-05 11:22 | NUR ---
reassessment: Pt PO 100% avg meals meeting needs. LBM 06/27. No nutrition concerns at this time. Will continue to monitor. Recommend: 1. continue regular diet per SP/MD 2. Double proteins TID 3. bowel care as needed 4. wt per rx Addendum: 07/05/19 at [address] Amended: Links added.
[2019-07-05 18:00] VITALS: BP 86/57
--- NOTE | 2019-07-05 18:15 | NUR ---
Problems reprioritized. Patient report given, questions answered & plan of care reviewed with JHOAN Lantigua.
[2019-07-05] MEDS: quetiapine 100mg tablet PO SCH (19:59)
[2019-07-05] MEDS: polyethylene glycol 3350 17gm powd pack PO SCH (21:00)
[2019-07-05 22:00] VITALS: BP 96/60
[2019-07-06 06:00] VITALS: BP 119/71
[2019-07-06] MEDS: LORazepam 1 MG tablet PO PRN (08:51)
[2019-07-06] MEDS: aripiprazole 5mg tablet PO SCH (08:51)
[2019-07-06] MEDS: sodium chloride 1gm tablet PO SCH ×4 (08:51→21:58)
[2019-07-06] MEDS: valproic acid 250mg capsule PO SCH ×2 (08:52→21:58)
[2019-07-06] MEDS: cetirizine 10mg tablet PO SCH (08:52)
[2019-07-06] MEDS: levoTHYROXINE 25mcg tablet PO SCH (08:52)
[2019-07-06] MEDS: pantoprazole 40mg Tablet.DR PO SCH (08:52)
[2019-07-06] MEDS: aspirin 81mg tablet.DR PO SCH (08:52)
[2019-07-06] MEDS: pyridoxine 50mg tablet PO SCH (08:52)
[2019-07-06] MEDS: metoprolol tartrate 12.5mg (1/2 tablet) PO SCH ×2 (08:53→21:58)
[2019-07-06] MEDS: ferrous sulfate 325mg tablet PO SCH ×2 (08:53→21:58)
[2019-07-06 10:00] VITALS: BP 110/62
[2019-07-06 18:00] VITALS: BP 113/61
--- NOTE | 2019-07-06 18:34 | NUR ---
Student documentation: I have reviewed and agree with all interventions, assessments performed and documented by Brando MCELROY. Student Medication Administration: For this medication-pass time frame, all medication were reviewed, dispensed, administered and documented per hospital policy by Brando MCELROY. Problems reprioritized. Patient report given, questions answered & plan of care reviewed with Michelle STAPLES.
--- NOTE | 2019-07-06 18:34 | NUR ---
report given to Michelle blanca
[2019-07-06] MEDS: polyethylene glycol 3350 17gm powd pack PO SCH (21:00)
[2019-07-06] MEDS: quetiapine 100mg tablet PO SCH (21:58)
[2019-07-06 22:00] VITALS: BP 100/52
[2019-07-07 06:00] VITALS: BP 111/66
[2019-07-07] MEDS: aripiprazole 5mg tablet PO SCH (07:39)
[2019-07-07] MEDS: pantoprazole 40mg Tablet.DR PO SCH (07:39)
[2019-07-07] MEDS: metoprolol tartrate 12.5mg (1/2 tablet) PO SCH ×2 (07:39→19:32)
[2019-07-07] MEDS: levoTHYROXINE 25mcg tablet PO SCH (07:40)
[2019-07-07] MEDS: LORazepam 1 MG tablet PO PRN ×2 (07:40→21:11)
[2019-07-07] MEDS: sodium chloride 1gm tablet PO SCH ×4 (07:40→21:11)
[2019-07-07] MEDS: ferrous sulfate 325mg tablet PO SCH ×2 (07:40→19:30)
[2019-07-07] MEDS: aspirin 81mg tablet.DR PO SCH (07:40)
[2019-07-07] MEDS: pyridoxine 50mg tablet PO SCH (07:40)
[2019-07-07] MEDS: cetirizine 10mg tablet PO SCH (07:40)
[2019-07-07] MEDS: valproic acid 250mg capsule PO SCH ×2 (07:43→19:30)
[2019-07-07 10:00] VITALS: BP 104/64
[2019-07-07 18:00] VITALS: BP 144/75
--- NOTE | 2019-07-07 18:36 | NUR ---
Problems reprioritized. Patient report given, questions answered & plan of care reviewed with Michelle STAPLES.
[2019-07-07] MEDS: quetiapine 100mg tablet PO SCH (19:30)
[2019-07-07] MEDS: polyethylene glycol 3350 17gm powd pack PO SCH (21:00)
[2019-07-08] MEDS: LORazepam 1 MG tablet PO PRN (08:06)
[2019-07-08] MEDS: sodium chloride 1gm tablet PO SCH ×4 (08:06→21:07)
[2019-07-08] MEDS: pyridoxine 50mg tablet PO SCH (08:06)
[2019-07-08] MEDS: cetirizine 10mg tablet PO SCH (08:07)
[2019-07-08] MEDS: levoTHYROXINE 25mcg tablet PO SCH (08:07)
[2019-07-08] MEDS: valproic acid 250mg capsule PO SCH ×2 (08:07→21:07)
[2019-07-08] MEDS: ferrous sulfate 325mg tablet PO SCH ×2 (08:07→21:05)
[2019-07-08] MEDS: aspirin 81mg tablet.DR PO SCH (08:07)
[2019-07-08] MEDS: metoprolol tartrate 12.5mg (1/2 tablet) PO SCH ×2 (08:08→21:07)
[2019-07-08] MEDS: aripiprazole 5mg tablet PO SCH (08:08)
[2019-07-08] MEDS: pantoprazole 40mg Tablet.DR PO SCH (08:09)
[2019-07-08 10:00] VITALS: BP 115/59
[2019-07-08 17:30] VITALS: BP 122/72
--- NOTE | 2019-07-08 18:25 | NUR ---
Problems reprioritized. Patient report given, questions answered & plan of care reviewed with Anali STAPLES.
[2019-07-08] MEDS: polyethylene glycol 3350 17gm powd pack PO SCH (21:00)
[2019-07-08] MEDS: quetiapine 100mg tablet PO SCH (21:07)
[2019-07-08 22:00] VITALS: BP 127/60
[2019-07-09 05:00] VITALS: BP 101/54
--- NOTE | 2019-07-09 06:22 | NUR ---
report given to blanca Aguilar.
--- NOTE | 2019-07-09 06:40 | NUR ---
Patient in room [facility]TH[facility] 4008. I have received report from Anali STAPLES and had the opportunity to ask questions and assume patient care.
[2019-07-09] MEDS: aripiprazole 5mg tablet PO SCH (08:54)
[2019-07-09] MEDS: pantoprazole 40mg Tablet.DR PO SCH (08:54)
[2019-07-09] MEDS: pyridoxine 50mg tablet PO SCH (08:54)
[2019-07-09] MEDS: cetirizine 10mg tablet PO SCH (08:54)
[2019-07-09] MEDS: sodium chloride 1gm tablet PO SCH ×4 (08:54→21:14)
[2019-07-09] MEDS: valproic acid 250mg capsule PO SCH ×2 (08:55→21:13)
[2019-07-09] MEDS: ferrous sulfate 325mg tablet PO SCH ×2 (08:55→21:16)
[2019-07-09] MEDS: levoTHYROXINE 25mcg tablet PO SCH (08:55)
[2019-07-09] MEDS: metoprolol tartrate 12.5mg (1/2 tablet) PO SCH ×2 (08:55→21:16)
[2019-07-09] MEDS: aspirin 81mg tablet.DR PO SCH (08:55)
[2019-07-09 10:00] VITALS: BP 124/69
[2019-07-09 18:00] VITALS: BP 136/72
--- NOTE | 2019-07-09 18:17 | NUR ---
Problems reprioritized. Patient report given, questions answered & plan of care reviewed with Matt STAPLES.
[2019-07-09] MEDS: polyethylene glycol 3350 17gm powd pack PO SCH (21:00)
[2019-07-09] MEDS: LORazepam 1 MG tablet PO PRN (21:14)
[2019-07-09] MEDS: quetiapine 100mg tablet PO SCH (21:14)
[2019-07-09] MEDS: acetaminophen 325mg/10.15ml oral unit dose solution PO PRN (21:17)
[2019-07-09 22:00] VITALS: BP 142/76
--- NOTE | 2019-07-10 05:50 | NUR ---
pt likes yogurt and [employer]
[2019-07-10 06:00] VITALS: BP 148/72
--- NOTE | 2019-07-10 06:10 | NUR ---
reported off to Jeff. no change in assessment.
--- NOTE | 2019-07-10 06:41 | NUR ---
Patient in room ORTHO 4008. I have received report from Peter STAPLES and had the opportunity to ask questions and assume patient care.
[2019-07-10] MEDS: aripiprazole 5mg tablet PO SCH (08:03)
[2019-07-10] MEDS: cetirizine 10mg tablet PO SCH (08:04)
[2019-07-10] MEDS: valproic acid 250mg capsule PO SCH ×2 (08:04→20:22)
[2019-07-10] MEDS: aspirin 81mg tablet.DR PO SCH (08:04)
[2019-07-10] MEDS: sodium chloride 1gm tablet PO SCH ×4 (08:04→20:23)
[2019-07-10] MEDS: ferrous sulfate 325mg tablet PO SCH ×2 (08:04→20:22)
[2019-07-10] MEDS: pantoprazole 40mg Tablet.DR PO SCH (08:04)
[2019-07-10] MEDS: metoprolol tartrate 12.5mg (1/2 tablet) PO SCH ×2 (08:04→20:23)
[2019-07-10] MEDS: pyridoxine 50mg tablet PO SCH (08:04)
[2019-07-10] MEDS: levoTHYROXINE 25mcg tablet PO SCH (08:32)
[2019-07-10 10:00] VITALS: BP 142/97
--- NOTE | 2019-07-10 14:55 | NUR ---
WOC spoke with pt's primary RN, Jeff, regarding pt's WOC needs at this time. Primary RN reports no further signs of skin breakdown and no requests for WOC supplies at this time. Will continue to follow
--- NOTE | 2019-07-10 15:57 | NUR ---
Problems reprioritized. Patient report given, questions answered & plan of care reviewed with Jeanette STAPLES.
[2019-07-10 17:00] VITALS: BP 142/77
[2019-07-10 18:29] VITALS: BP 123/81
--- NOTE | 2019-07-10 18:45 | NUR ---
pt stated "i feel like I'm going to have a seizure. I already had a big seizure, my head was back and everything." pt then stated that she couldn't move her right arm. noted left facial droop more pronounced as well. VSS. noted after 20 min that facial droop was receding and right arm was able to lift to face when staff was not in room. will continue to monitor for neuro changes.
[2019-07-10] MEDS: acetaminophen 325mg/10.15ml oral unit dose solution PO PRN (18:59)
[2019-07-10] MEDS: polyethylene glycol 3350 17gm powd pack PO SCH (19:06)
[2019-07-10] MEDS: quetiapine 100mg tablet PO SCH (20:22)
[2019-07-10] MEDS: LORazepam 1 MG tablet PO PRN (20:22)
[2019-07-10 22:00] VITALS: BP 103/9
--- NOTE | 2019-07-10 23:28 | NUR ---
pt stated that "I've got the chills and a huge fever." pt is afebrile and no sweating noted. encouraged to rest and check with MD in am.
[2019-07-11 06:00] VITALS: BP 105/53
--- NOTE | 2019-07-11 06:00 | NUR ---
pt up to bathroom. no weakness noted. reported to days.
--- NOTE | 2019-07-11 06:44 | NUR ---
Patient in room ORTHO 4008. I have received report from Peter STAPLES and had the opportunity to ask questions and assume patient care.
[2019-07-11] MEDS: sodium chloride 1gm tablet PO SCH ×4 (07:54→20:15)
[2019-07-11] MEDS: pantoprazole 40mg Tablet.DR PO SCH (07:54)
[2019-07-11] MEDS: ferrous sulfate 325mg tablet PO SCH ×2 (07:54→20:14)
[2019-07-11] MEDS: pyridoxine 50mg tablet PO SCH (07:54)
[2019-07-11] MEDS: valproic acid 250mg capsule PO SCH ×2 (07:54→20:15)
[2019-07-11] MEDS: levoTHYROXINE 25mcg tablet PO SCH (07:55)
[2019-07-11] MEDS: metoprolol tartrate 12.5mg (1/2 tablet) PO SCH ×2 (07:55→20:22)
[2019-07-11] MEDS: aspirin 81mg tablet.DR PO SCH (07:55)
[2019-07-11] MEDS: cetirizine 10mg tablet PO SCH (07:55)
--- NOTE | 2019-07-11 08:18 | NUR ---
paged pharmacy that Pts medication (Abilify is out of stock)
[2019-07-11] MEDS: aripiprazole 5mg tablet PO SCH (10:09)
[2019-07-11] MEDS: LORazepam 1 MG tablet PO PRN (17:21)
--- NOTE | 2019-07-11 18:16 | NUR ---
Problems reprioritized. Patient report given, questions answered & plan of care reviewed with Francie STAPLES.
--- NOTE | 2019-07-11 18:20 | NUR ---
Patient in room ORTHO 4008. I have received report from Jeff STAPLES and had the opportunity to ask questions and assume patient care.
[2019-07-11] MEDS: quetiapine 100mg tablet PO SCH (20:15)
[2019-07-11 20:19] VITALS: BP_SYST 119; BP_SYST 138; BP_DIAS 64; BP_DIAS 70
[2019-07-11 21:00] VITALS: BP 143/73
[2019-07-11] MEDS: polyethylene glycol 3350 17gm powd pack PO SCH (21:00)
[2019-07-12 06:00] VITALS: BP 115/69
--- NOTE | 2019-07-12 06:10 | NUR ---
received report from JHOAN Marmolejo
--- NOTE | 2019-07-12 06:16 | NUR ---
Problems reprioritized. Patient report given, questions answered & plan of care reviewed with Camille STAPLES and Paula RAHMAN.
[2019-07-12] MEDS: levoTHYROXINE 25mcg tablet PO SCH (08:32)
[2019-07-12] MEDS: pyridoxine 50mg tablet PO SCH (08:33)
[2019-07-12] MEDS: sodium chloride 1gm tablet PO SCH ×4 (08:34→20:13)
[2019-07-12] MEDS: pantoprazole 40mg Tablet.DR PO SCH (08:34)
[2019-07-12] MEDS: valproic acid 250mg capsule PO SCH ×2 (08:35→20:13)
[2019-07-12] MEDS: aripiprazole 5mg tablet PO SCH (08:36)
[2019-07-12] MEDS: ferrous sulfate 325mg tablet PO SCH ×2 (08:37→20:13)
[2019-07-12] MEDS: aspirin 81mg tablet.DR PO SCH (08:37)
[2019-07-12] MEDS: cetirizine 10mg tablet PO SCH (08:37)
[2019-07-12] MEDS: metoprolol tartrate 12.5mg (1/2 tablet) PO SCH ×2 (08:38→20:13)
[2019-07-12 10:00] VITALS: BP 128/72
[2019-07-12] MEDS: LORazepam 1 MG tablet PO PRN (12:58)
--- NOTE | 2019-07-12 14:21 | NUR ---
reassessment: Pt PO 100% avg meals meeting needs. LBM 07/09. No nutrition concerns at this time. Will continue to monitor. Recommend: 1. continue regular diet per SP/MD 2. Double proteins TID 3. bowel care as needed 4. wt per rx Addendum: 07/12/19 at [address] Amended: Links added.
[2019-07-12 17:00] VITALS: BP 126/56
--- NOTE | 2019-07-12 18:27 | NUR ---
GAVE REPORT TO December,
[2019-07-12] MEDS: quetiapine 100mg tablet PO SCH (20:13)
[2019-07-12] MEDS: polyethylene glycol 3350 17gm powd pack PO SCH (21:00)
[2019-07-13 06:12] VITALS: BP 94/54
--- NOTE | 2019-07-13 06:38 | NUR ---
Patient in room ORTHO 4008. I have received report from Michelle RN and had the opportunity to ask questions and assume patient care.
[2019-07-13] MEDS: metoprolol tartrate 12.5mg (1/2 tablet) PO SCH ×2 (07:20→20:11)
[2019-07-13] MEDS: pyridoxine 50mg tablet PO SCH (07:25)
[2019-07-13] MEDS: valproic acid 250mg capsule PO SCH ×2 (07:25→20:11)
[2019-07-13] MEDS: ferrous sulfate 325mg tablet PO SCH ×2 (07:25→20:07)
[2019-07-13] MEDS: sodium chloride 1gm tablet PO SCH ×4 (07:25→20:11)
[2019-07-13] MEDS: levoTHYROXINE 25mcg tablet PO SCH (07:25)
[2019-07-13] MEDS: aspirin 81mg tablet.DR PO SCH (07:26)
[2019-07-13] MEDS: aripiprazole 5mg tablet PO SCH (07:26)
[2019-07-13] MEDS: cetirizine 10mg tablet PO SCH (07:27)
[2019-07-13] MEDS: pantoprazole 40mg Tablet.DR PO SCH (07:30)
[2019-07-13 10:00] VITALS: BP 126/51
[2019-07-13] MEDS: LORazepam 1 MG tablet PO PRN ×2 (12:27→22:07)
--- NOTE | 2019-07-13 16:25 | NUR ---
Patient stable for discharge to [facility] per MD order. All discharge instructions and questions answered with Mak STAPLES at [facility]. PIV discontinued. Belongings collected and sent with patient. Patient left in [facility] [employer] van. Patient wheeled to lobby by [facility] personnel. Addendum: 07/13/19 at 1814 by Mamta Maldonado RN Correction incorrect patient discharge note.
[2019-07-13 18:00] VITALS: BP 122/58
--- NOTE | 2019-07-13 18:00 | NUR ---
Problems reprioritized. Patient report given, questions answered & plan of care reviewed with Michelle STAPLES.
[2019-07-13] MEDS: quetiapine 100mg tablet PO SCH (20:07)
[2019-07-13] MEDS: polyethylene glycol 3350 17gm powd pack PO SCH (21:00)
[2019-07-14] MEDS: levoTHYROXINE 25mcg tablet PO SCH (08:24)
[2019-07-14] MEDS: aripiprazole 5mg tablet PO SCH (08:24)
[2019-07-14] MEDS: pyridoxine 50mg tablet PO SCH (08:25)
[2019-07-14] MEDS: pantoprazole 40mg Tablet.DR PO SCH (08:25)
[2019-07-14] MEDS: ferrous sulfate 325mg tablet PO SCH ×2 (08:25→20:41)
[2019-07-14] MEDS: cetirizine 10mg tablet PO SCH (08:25)
[2019-07-14] MEDS: aspirin 81mg tablet.DR PO SCH (08:25)
[2019-07-14] MEDS: valproic acid 250mg capsule PO SCH ×2 (08:25→20:40)
[2019-07-14] MEDS: sodium chloride 1gm tablet PO SCH ×4 (08:25→20:41)
[2019-07-14] MEDS: metoprolol tartrate 12.5mg (1/2 tablet) PO SCH ×2 (08:32→20:41)
[2019-07-14 10:00] VITALS: BP 119/55
[2019-07-14 18:00] VITALS: BP 134/78
--- NOTE | 2019-07-14 18:46 | NUR ---
report to Sophie STAPLES
[2019-07-14] MEDS: polyethylene glycol 3350 17gm powd pack PO SCH (19:13)
--- NOTE | 2019-07-14 19:30 | NUR ---
Patient in room ORTHO 4008. I have received report from JHOAN Wright and had the opportunity to ask questions and assume patient care. Addendum: 07/14/19 at 1943 by Richard Guy RN Amended: Links added.
[2019-07-14] MEDS: quetiapine 100mg tablet PO SCH (20:41)
[2019-07-14 22:28] VITALS: BP 135/72
[2019-07-15 06:00] VITALS: BP 107/56
--- NOTE | 2019-07-15 06:18 | NUR ---
Problems reprioritized. Patient report given, questions answered & plan of care reviewed with JHOAN Bowens. Addendum: 07/15/19 at 0619 by Richard Guy RN Amended: Links added.
[2019-07-15] MEDS: valproic acid 250mg capsule PO SCH ×2 (08:15→19:02)
[2019-07-15] MEDS: cetirizine 10mg tablet PO SCH (08:15)
[2019-07-15] MEDS: pantoprazole 40mg Tablet.DR PO SCH (08:15)
[2019-07-15] MEDS: pyridoxine 50mg tablet PO SCH (08:16)
[2019-07-15] MEDS: aripiprazole 5mg tablet PO SCH (08:17)
[2019-07-15] MEDS: aspirin 81mg tablet.DR PO SCH (08:17)
[2019-07-15] MEDS: sodium chloride 1gm tablet PO SCH ×4 (08:17→21:00)
[2019-07-15] MEDS: levoTHYROXINE 25mcg tablet PO SCH (08:17)
[2019-07-15] MEDS: ferrous sulfate 325mg tablet PO SCH ×2 (08:18→19:02)
[2019-07-15] MEDS: metoprolol tartrate 12.5mg (1/2 tablet) PO SCH ×2 (08:20→19:03)
[2019-07-15] MEDS: LORazepam 1 MG tablet PO PRN (11:45)
[2019-07-15 18:00] VITALS: BP 123/63
--- NOTE | 2019-07-15 18:24 | NUR ---
REPORT TO LYDIA STAPLES
[2019-07-15] MEDS: acetaminophen 325mg/10.15ml oral unit dose solution PO PRN (19:02)
[2019-07-15] MEDS: quetiapine 100mg tablet PO SCH (19:02)
[2019-07-15] MEDS: polyethylene glycol 3350 17gm powd pack PO SCH (21:00)
[2019-07-15 22:00] VITALS: BP 117/54
[2019-07-16 06:00] VITALS: BP 114/58
--- NOTE | 2019-07-16 06:52 | NUR ---
Patient in room ORTH[facility] 4008. I have received report from Lily STAPLES and had the opportunity to ask questions and assume patient care.
[2019-07-16] MEDS: valproic acid 250mg capsule PO SCH ×2 (08:28→20:05)
[2019-07-16] MEDS: aripiprazole 5mg tablet PO SCH (08:28)
[2019-07-16] MEDS: pyridoxine 50mg tablet PO SCH (08:28)
[2019-07-16] MEDS: sodium chloride 1gm tablet PO SCH ×4 (08:28→20:05)
[2019-07-16] MEDS: cetirizine 10mg tablet PO SCH (08:29)
[2019-07-16] MEDS: pantoprazole 40mg Tablet.DR PO SCH (08:29)
[2019-07-16] MEDS: levoTHYROXINE 25mcg tablet PO SCH (08:29)
[2019-07-16] MEDS: metoprolol tartrate 12.5mg (1/2 tablet) PO SCH ×2 (08:29→20:08)
[2019-07-16] MEDS: ferrous sulfate 325mg tablet PO SCH ×2 (08:29→20:05)
[2019-07-16] MEDS: aspirin 81mg tablet.DR PO SCH (08:29)
[2019-07-16 10:00] VITALS: BP 114/59
--- NOTE | 2019-07-16 14:47 | NUR ---
WOC spoke with pt's primary RN, Jeff, who stated pt's skin appears to be in good condition with no new WOC needs at this time. Will continue to follow.
[2019-07-16 18:00] VITALS: BP 116/63
--- NOTE | 2019-07-16 18:10 | NUR ---
Received report from Jeff STAPLES. assumed care of patient.
--- NOTE | 2019-07-16 18:13 | NUR ---
Problems reprioritized. Patient report given, questions answered & plan of care reviewed with Myrna RN.
[2019-07-16] MEDS: polyethylene glycol 3350 17gm powd pack PO SCH (20:05)
[2019-07-16] MEDS: quetiapine 100mg tablet PO SCH (20:08)
[2019-07-16 22:00] VITALS: BP 102/45
[2019-07-17 06:00] VITALS: BP 80/62
--- NOTE | 2019-07-17 06:24 | NUR ---
Gave report to Jeff STAPLES.
--- NOTE | 2019-07-17 06:39 | NUR ---
Patient in room [facility]TH[facility] 4008. I have received report from Myrna STAPLES and had the opportunity to ask questions and assume patient care.
[2019-07-17] MEDS: metoprolol tartrate 12.5mg (1/2 tablet) PO SCH ×2 (08:00→20:13)
[2019-07-17] MEDS: cetirizine 10mg tablet PO SCH (08:07)
[2019-07-17] MEDS: valproic acid 250mg capsule PO SCH ×2 (08:07→20:12)
[2019-07-17] MEDS: pantoprazole 40mg Tablet.DR PO SCH (08:07)
[2019-07-17] MEDS: ferrous sulfate 325mg tablet PO SCH ×2 (08:07→20:12)
[2019-07-17] MEDS: aripiprazole 5mg tablet PO SCH (08:07)
[2019-07-17] MEDS: aspirin 81mg tablet.DR PO SCH (08:07)
[2019-07-17] MEDS: sodium chloride 1gm tablet PO SCH ×4 (08:08→20:12)
[2019-07-17] MEDS: pyridoxine 50mg tablet PO SCH (08:08)
[2019-07-17] MEDS: levoTHYROXINE 25mcg tablet PO SCH (08:08)
[2019-07-17 10:00] VITALS: BP 116/63
[2019-07-17] MEDS: LORazepam 1 MG tablet PO PRN (10:15)
[2019-07-17 17:00] VITALS: BP 160/78
--- NOTE | 2019-07-17 18:00 | NUR ---
Problems reprioritized. Patient report given, questions answered & plan of care reviewed with Myrna RN.
--- NOTE | 2019-07-17 18:36 | NUR ---
Received report from Jeff STAPLES. assumed care of patient.
[2019-07-17] MEDS: quetiapine 100mg tablet PO SCH (20:13)
[2019-07-17] MEDS: polyethylene glycol 3350 17gm powd pack PO SCH (20:18)
[2019-07-17 22:00] VITALS: BP 97/57
[2019-07-18 06:00] VITALS: BP 130/67
--- NOTE | 2019-07-18 06:05 | NUR ---
Gave report to Jeff STAPLES.
--- NOTE | 2019-07-18 06:27 | NUR ---
Patient in room [facility]TH[facility] 4008. I have received report from Myrna STAPLES and had the opportunity to ask questions and assume patient care.
[2019-07-18] MEDS: pantoprazole 40mg Tablet.DR PO SCH (08:10)
[2019-07-18] MEDS: valproic acid 250mg capsule PO SCH ×2 (08:10→20:25)
[2019-07-18] MEDS: aspirin 81mg tablet.DR PO SCH (08:10)
[2019-07-18] MEDS: aripiprazole 5mg tablet PO SCH (08:10)
[2019-07-18] MEDS: ferrous sulfate 325mg tablet PO SCH ×2 (08:10→20:25)
[2019-07-18] MEDS: metoprolol tartrate 12.5mg (1/2 tablet) PO SCH ×2 (08:11→20:24)
[2019-07-18] MEDS: sodium chloride 1gm tablet PO SCH ×4 (08:11→20:25)
[2019-07-18] MEDS: levoTHYROXINE 25mcg tablet PO SCH (08:11)
[2019-07-18] MEDS: cetirizine 10mg tablet PO SCH (08:11)
[2019-07-18] MEDS: pyridoxine 50mg tablet PO SCH (08:11)
[2019-07-18 10:00] VITALS: BP 124/57
--- NOTE | 2019-07-18 12:47 | NUR ---
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
[2019-07-18 18:00] VITALS: BP 140/71
--- NOTE | 2019-07-18 18:00 | NUR ---
Patient in room ORTHO 4008. I have received report from JHOAN Aguilar and had the opportunity to ask questions and assume patient care.
--- NOTE | 2019-07-18 18:08 | NUR ---
Problems reprioritized. Patient report given, questions answered & plan of care reviewed with Dalia STAPLES.
[2019-07-18 20:23] VITALS: BP 108/59
[2019-07-18] MEDS: quetiapine 100mg tablet PO SCH (20:25)
[2019-07-18] MEDS: polyethylene glycol 3350 17gm powd pack PO SCH (20:25)
[2019-07-18 22:00] VITALS: BP 145/73
[2019-07-19 05:00] VITALS: BP 130/73
--- NOTE | 2019-07-19 06:15 | NUR ---
Problems reprioritized. Patient report given, questions answered & plan of care reviewed with JHOAN Wick.
--- NOTE | 2019-07-19 06:15 | NUR ---
Patient in room ORTH[facility] 4008. I have received report from Dalia STAPLES and had the opportunity to ask questions and assume patient care.
[2019-07-19] MEDS: sodium chloride 1gm tablet PO SCH ×4 (08:22→20:02)
[2019-07-19] MEDS: valproic acid 250mg capsule PO SCH ×2 (08:23→20:02)
[2019-07-19] MEDS: levoTHYROXINE 25mcg tablet PO SCH (08:24)
[2019-07-19] MEDS: metoprolol tartrate 12.5mg (1/2 tablet) PO SCH ×2 (08:24→20:02)
[2019-07-19] MEDS: pantoprazole 40mg Tablet.DR PO SCH (08:25)
[2019-07-19] MEDS: ferrous sulfate 325mg tablet PO SCH ×2 (08:25→20:02)
[2019-07-19] MEDS: cetirizine 10mg tablet PO SCH (08:25)
[2019-07-19] MEDS: aspirin 81mg tablet.DR PO SCH (08:26)
[2019-07-19] MEDS: pyridoxine 50mg tablet PO SCH (08:27)
[2019-07-19] MEDS: aripiprazole 5mg tablet PO SCH (08:28)
[2019-07-19 10:00] VITALS: BP 118/68
--- NOTE | 2019-07-19 10:59 | NUR ---
Reassessment: Pt continues with 75-100% PO intake meeting nutrient needs. LBM 07/18 documented as small. Pt receiving routine HS Miralax with MoM PRN. Per MD/CM notes pt to d/c to rehab tomorrow morning. Will continue to follow per LOS protocol. Recommend: 1. continue regular diet per SP/ 2. Double proteins TID 3. Routine bowel care 4. wt per rx Addendum: 07/19/19 at [address] Amended: Links added.
[2019-07-19] MEDS: LORazepam 1 MG tablet PO PRN (11:46)
--- NOTE | 2019-07-19 15:28 | NUR ---
Faxed dietary for an early breakfast, sack lunch as patient is leaving in the am at 0700. Took patient to ER and got clothing, along with donations from our floor and washed clothing she already had at . Swabbed patients nose per protocol.
[2019-07-19 17:00] VITALS: BP 142/68
--- NOTE | 2019-07-19 18:38 | NUR ---
Problems reprioritized. Patient report given, questions answered & plan of care reviewed with Radha STAPLES.
--- NOTE | 2019-07-19 18:39 | NUR ---
Student documentation: I have reviewed and agree with all interventions, assessments performed and documented by Brando NS. Student Medication Administration: For this medication-pass time frame, all medication were reviewed, dispensed, administered and documented per hospital policy by Brando NS.
--- NOTE | 2019-07-19 18:43 | NUR ---
Report given to Radha STAPLES
--- NOTE | 2019-07-19 18:45 | NUR ---
Patient in room ORTHO 4008. I have received report from JHOAN Pineda and had the opportunity to ask questions and assume patient care. Patient up to the bathroom w/walker, I helped her back to bed and will continue to monitor. I know Gogo's history and admission well, I will continue to monitor.
[2019-07-19] MEDS: quetiapine 100mg tablet PO SCH (20:02)
[2019-07-19] MEDS: polyethylene glycol 3350 17gm powd pack PO SCH (20:05)
[2019-07-19 22:00] VITALS: BP 152/83
--- NOTE | 2019-07-20 06:15 | NUR ---
Problems reprioritized. Patient report given, questions answered & plan of care reviewed with JHOAN Wick.
--- NOTE | 2019-07-20 06:20 | NUR ---
Received report, work patient gave her breakfast and clothed her. Medications given to patient for ride to [facility]. Report called to [facility] charge, gave her our number for any questions.
[2019-07-20] MEDS: aripiprazole 5mg tablet PO SCH (06:59)
[2019-07-20] MEDS: ferrous sulfate 325mg tablet PO SCH (06:59)
[2019-07-20] MEDS: metoprolol tartrate 12.5mg (1/2 tablet) PO SCH (06:59)
[2019-07-20] MEDS: aspirin 81mg tablet.DR PO SCH (06:59)
[2019-07-20] MEDS: pantoprazole 40mg Tablet.DR PO SCH (07:00)
[2019-07-20] MEDS: sodium chloride 1gm tablet PO SCH (07:00)
[2019-07-20] MEDS: pyridoxine 50mg tablet PO SCH (07:00)
[2019-07-20] MEDS: levoTHYROXINE 25mcg tablet PO SCH (07:00)
[2019-07-20] MEDS: cetirizine 10mg tablet PO SCH (07:00)
[2019-07-20] MEDS: LORazepam 1 MG tablet PO PRN (07:01)
[2019-07-20] MEDS: valproic acid 250mg capsule PO SCH (07:01)
== END 2019-07-20 08:28 | disposition short-term general hospital (02) | DRG 853 ==
LOC: ER 04:23 → ICU 2S 09:41 → CICU 2S 01-19 18:58 → PCU 3S 02-23 18:13 → SUR 3N 03-22 15:41 → ORTHO 4S 04-18 10:45
PROVIDERS: ADMIT Internal Medicine Critical Care Medicine; ATTEND Internal Medicine Critical Care Medicine
PROC: 06HY33Z Insertion of Infusion Device into Lower Vein, Percutaneous Approach (ICD-10-PCS; 2019-01-18)
PROC: 5A09357 Assistance with Respiratory Ventilation, Less than 24 Consecutive Hours, Continuous Positive Airway Pressure (ICD-10-PCS; 2019-01-20)
PROC: 02HV33Z Insertion of Infusion Device into Superior Vena Cava, Percutaneous Approach (ICD-10-PCS; 2019-01-20)
PROC: B548ZZA Ultrasonography of Superior Vena Cava, Guidance (ICD-10-PCS; 2019-01-20)
PROC: 5A09357 Assistance with Respiratory Ventilation, Less than 24 Consecutive Hours, Continuous Positive Airway Pressure (ICD-10-PCS; 2019-01-21)
PROC: 5A09357 Assistance with Respiratory Ventilation, Less than 24 Consecutive Hours, Continuous Positive Airway Pressure (ICD-10-PCS; 2019-01-24)
PROC: 5A09357 Assistance with Respiratory Ventilation, Less than 24 Consecutive Hours, Continuous Positive Airway Pressure (ICD-10-PCS; 2019-01-25)
PROC: 30233N1 Transfusion of Nonautologous Red Blood Cells into Peripheral Vein, Percutaneous Approach (ICD-10-PCS; 2019-01-25)
PROC: 5A1955Z Respiratory Ventilation, Greater than 96 Consecutive Hours (ICD-10-PCS; 2019-01-26)
PROC: 0BH17EZ Insertion of Endotracheal Airway into Trachea, Via Natural or Artificial Opening (ICD-10-PCS; 2019-01-26)
PROC: 30233N1 Transfusion of Nonautologous Red Blood Cells into Peripheral Vein, Percutaneous Approach (ICD-10-PCS; 2019-01-26)
PROC: 30233M1 Transfusion of Nonautologous Plasma Cryoprecipitate into Peripheral Vein, Percutaneous Approach (ICD-10-PCS; 2019-01-26)
PROC: 30233R1 Transfusion of Nonautologous Platelets into Peripheral Vein, Percutaneous Approach (ICD-10-PCS; 2019-01-26)
PROC: 0DJ08ZZ Inspection of Upper Intestinal Tract, Via Natural or Artificial Opening Endoscopic (ICD-10-PCS; 2019-01-26)
PROC: 30233N1 Transfusion of Nonautologous Red Blood Cells into Peripheral Vein, Percutaneous Approach (ICD-10-PCS; 2019-02-03)
PROC: 0DH67UZ Insertion of Feeding Device into Stomach, Via Natural or Artificial Opening (ICD-10-PCS; 2019-02-11)
PROC: B548ZZA Ultrasonography of Superior Vena Cava, Guidance (ICD-10-PCS; 2019-02-16)
PROC: 02HV33Z Insertion of Infusion Device into Superior Vena Cava, Percutaneous Approach (ICD-10-PCS; 2019-02-16)
PROC: 5A09357 Assistance with Respiratory Ventilation, Less than 24 Consecutive Hours, Continuous Positive Airway Pressure (ICD-10-PCS; 2019-02-19)
PROC: 5A09357 Assistance with Respiratory Ventilation, Less than 24 Consecutive Hours, Continuous Positive Airway Pressure (ICD-10-PCS; 2019-02-20)
PROC: 5A09357 Assistance with Respiratory Ventilation, Less than 24 Consecutive Hours, Continuous Positive Airway Pressure (ICD-10-PCS; 2019-02-21)
PROC: 5A09357 Assistance with Respiratory Ventilation, Less than 24 Consecutive Hours, Continuous Positive Airway Pressure (ICD-10-PCS; 2019-02-22)
PROC: 5A09357 Assistance with Respiratory Ventilation, Less than 24 Consecutive Hours, Continuous Positive Airway Pressure (ICD-10-PCS; 2019-02-28)
PROC: 5A09357 Assistance with Respiratory Ventilation, Less than 24 Consecutive Hours, Continuous Positive Airway Pressure (ICD-10-PCS; 2019-03-01)
PROC: 30233N1 Transfusion of Nonautologous Red Blood Cells into Peripheral Vein, Percutaneous Approach (ICD-10-PCS; 2019-03-05)
PROC: BW211ZZ Computerized Tomography (CT Scan) of Abdomen and Pelvis using Low Osmolar Contrast (ICD-10-PCS; 2019-03-05)
PROC: 0DJ08ZZ Inspection of Upper Intestinal Tract, Via Natural or Artificial Opening Endoscopic (ICD-10-PCS; 2019-03-06)
PROC: 0DBL8ZX Excision of Transverse Colon, Via Natural or Artificial Opening Endoscopic, Diagnostic (ICD-10-PCS; 2019-03-07)
PROC: 5A09357 Assistance with Respiratory Ventilation, Less than 24 Consecutive Hours, Continuous Positive Airway Pressure (ICD-10-PCS; 2019-03-10)
PROC: 5A09457 Assistance with Respiratory Ventilation, 24-96 Consecutive Hours, Continuous Positive Airway Pressure (ICD-10-PCS; 2019-03-11)
PROC: 5A09357 Assistance with Respiratory Ventilation, Less than 24 Consecutive Hours, Continuous Positive Airway Pressure (ICD-10-PCS; 2019-03-13)
PROC: 5A09357 Assistance with Respiratory Ventilation, Less than 24 Consecutive Hours, Continuous Positive Airway Pressure (ICD-10-PCS; 2019-03-14)
PROC: 5A09357 Assistance with Respiratory Ventilation, Less than 24 Consecutive Hours, Continuous Positive Airway Pressure (ICD-10-PCS; 2019-03-15)
PROC: 5A09357 Assistance with Respiratory Ventilation, Less than 24 Consecutive Hours, Continuous Positive Airway Pressure (ICD-10-PCS; 2019-03-16)
PROC: 5A09357 Assistance with Respiratory Ventilation, Less than 24 Consecutive Hours, Continuous Positive Airway Pressure (ICD-10-PCS; 2019-03-17)
PROC: 5A09357 Assistance with Respiratory Ventilation, Less than 24 Consecutive Hours, Continuous Positive Airway Pressure (ICD-10-PCS; principal; 2019-03-19)
PROC: 0QH634Z Insertion of Internal Fixation Device into Right Upper Femur, Percutaneous Approach (ICD-10-PCS; 2019-04-18)
PROC: 0DTP0ZZ Resection of Rectum, Open Approach (ICD-10-PCS; 2019-05-26)
PROC: 3E02340 Introduction of Influenza Vaccine into Muscle, Percutaneous Approach (ICD-10-PCS; 2019-06-18)
DX: A41.9 Sepsis, unspecified organism (principal); J96.22 Acute and chronic respiratory failure with hypercapnia; I50.33 Acute on chronic diastolic (congestive) heart failure; R65.21 Severe sepsis with septic shock; J96.21 Acute and chronic respiratory failure with hypoxia; J15.211 Pneumonia due to Methicillin susceptible Staphylococcus aureus; K57.91 Diverticulosis of intestine, part unspecified, without perforation or abscess with bleeding; A04.72 Enterocolitis due to Clostridium difficile, not specified as recurrent; E87.4 Mixed disorder of acid-base balance; G93.40 Encephalopathy, unspecified; K26.9 Duodenal ulcer, unspecified as acute or chronic, without hemorrhage or perforation; E87.1 Hypo-osmolality and hyponatremia; Z99.11 Dependence on respirator [ventilator] status; M80.851A Other osteoporosis with current pathological fracture, right femur, initial encounter for fracture; N39.0 Urinary tract infection, site not specified; Z16.12 Extended spectrum beta lactamase (ESBL) resistance; F20.9 Schizophrenia, unspecified; E87.6 Hypokalemia; W19.XXXA Unspecified fall, initial encounter; K62.3 Rectal prolapse; D72.819 Decreased white blood cell count, unspecified; I95.9 Hypotension, unspecified; M25.531 Pain in right wrist; M54.9 Dorsalgia, unspecified; R15.9 Full incontinence of feces; E03.9 Hypothyroidism, unspecified; E11.9 Type 2 diabetes mellitus without complications; D64.9 Anemia, unspecified; F29 Unspecified psychosis not due to a substance or known physiological condition; F32.9 Major depressive disorder, single episode, unspecified; K21.9 Gastro-esophageal reflux disease without esophagitis; F03.90 Unspecified dementia, unspecified severity, without behavioral disturbance, psychotic disturbance, mood disturbance, and anxiety; B96.20 Unspecified Escherichia coli [E. coli] as the cause of diseases classified elsewhere; F17.200 Nicotine dependence, unspecified, uncomplicated; I11.0 Hypertensive heart disease with heart failure; R32 Unspecified urinary incontinence; Z79.899 Other long term (current) drug therapy; Z86.73 Personal history of transient ischemic attack (TIA), and cerebral infarction without residual deficits; Z87.01 Personal history of pneumonia (recurrent); Z87.11 Personal history of peptic ulcer disease; Z91.410 Personal history of adult physical and sexual abuse; Z22.322 Carrier or suspected carrier of Methicillin resistant Staphylococcus aureus; Z23 Encounter for immunization; Z88.8 Allergy status to other drugs, medicaments and biological substances; Z88.1 Allergy status to other antibiotic agents; Z91.011 Allergy to milk products; Z88.3 Allergy status to other anti-infective agents; W18.39XA Other fall on same level, initial encounter; Y93.89 Activity, other specified; Y92.238 Other place in hospital as the place of occurrence of the external cause; Y99.8 Other external cause status
CPT/HCPCS: 36415; 36556; 36569; 36600; 43235; 43761; 45385; 71045; 71046; 71250; 72170; 73110; 73502; 73521; 74018; 74177; 76000; 76937; 80048; 80053; 80164; 80202; 81001; 82140; 82272; 82803; 82948; 83036; 83540; 83550; 83605; 83735; 83880; 84100; 84132; 84134; 84145; 84443; 85018; 85025; 85027; 85610; 85730; 86885; 86900; 86901; 86920; 87040; 87045; 87046; 87070; 87077; 87081; 87088; 87186; 88305; 89055; 92508; 92616; 93005; 93306; 94002; 94003; 94640; 94660; 94667; 94668; 94760; 96365; 96367; 97110; 97116; 97161; 97162; 97164; 97530; 97535; 99152; 99285; A4215; A4618; A4620; A6224; A6449; A6455; A7000; C1713; C1758; C1769; C1773; C9113; G0378; J0131; J0330; J0456; J0692; J0780; J1100; J1120; J1200; J1630; J1644; J1650; J1815; J1940; J1956; J2001; J2060; J2175; J2185; J2212; J2250; J2270; J2310; J2354; J2370; J2405; J2543; J2704; J2710; J2765; J2795; J2920; J2930; J3010; J3370; J3475; J3480; J3486; J3490; J7030; J7040; J7050; J7060; J7070; J7120; J7512; J7614; P9016; P9035; P9045; P9047; P9059; Q2037; Q4081; Q9963; Q9967; Z7610